=== PATIENT | male | born 1945 | race Caucasian/White ===

== ENCOUNTER 2017-12-16 05:14 | Inpatient (IN) | payer MEDICARE, SELFPAY ==
[2017-12-03 10:23] VITALS: BP 128/80; PULSE 90; RESP 16; TEMP 36.7; O2SAT 94; BMI 25.2
--- NOTE | 2017-12-03 10:45 | SDCEKG_ITS ---
Test Reason : Blood Pressure : / mmHG Vent. Rate : 088 BPM Atrial Rate : 088 BPM P-R Int : 168 ms QRS Dur : 134 ms QT Int : 368 ms P-R-T Axes : 040 055 019 degrees QTc Int : 445 ms Normal sinus rhythm Right bundle branch block Abnormal ECG Confirmed by MARIE DRIVER, NITZA ([id number]), commissioning editor OLGA SCHUSTER ([id number]) on 12/07/2017 2:10:59 PM Referred By: JADA Confirmed By:NITZA SALAZAR MD
[2017-12-03 11:04] LABS: Hematocrit 43.3 % (40-54); Hemoglobin 15.1 g/dl (13.0-16.5); Mean Corp Hgb Conc 34.9 g/gl (32-36); Mean Corpuscular Hgb 31.6 pg (27.0-32.0); Mean Corpuscular Volume 90.6 fL (80-94); Mean Platelet Vol. 10.1 fl (6.2-12.0); Platelet Count 222 K/mm3 (150-450); RBC Distribution Width CV 12.3 % (11.6-14.6); RBC Distribution Width SD 40.2 fl (35.1-43.9); Red Blood Count 4.78 M/mm3 (4.6-6.2); White Blood Count 10.9 K/mm3 (4.4-11.0)
[2017-12-03 11:06] LABS: Scan Indicated on CBC? Y/N NO
[2017-12-03 11:14] LABS: Prothrombin Time (Protime)PT. 12.6 SECONDS (11.7-14.9)
[2017-12-03 12:11] LABS: AST(SGOT) 20 U/L (15-37); Alanine Aminotransfer ALT/SGPT 33 U/L (16-61); Alkaline Phosphatase 74 U/L (45-117); Anion Gap 10 (5-15); BUN 34 mg/dL (7-18); BUN/Creat Ratio 29.8 RATIO (10-20); Bilirubin, Direct 0.13 mg/dL (0.00-0.30); Calcium,Total 9.5 mg/dL (8.5-10.1); Chloride 105 mmol/L (98-107); Creatinine, Serum 1.14 mg/dL (0.70-1.30); EST Glomerular Filtration Rate 67 mL/min (>60); Est Glom Filt Rate - Afr Amer 81 mL/min (>60); Globulin 3.7 g/dL (2.2-4.2); Glucose 156 mg/dL (74-106); Potassium 3.8 mmol/L (3.5-5.1); Protein, Total 7.7 g/dL (6.4-8.2); Sodium Level 141 mmol/L (136-145)
[2017-12-05 10:51] LABS: PTT-Lupus Anticoagulant 34.6 sec (0.0-51.9)
[2017-12-16] VITALS (12 sets, daily range): BP systolic 114–150; BP diastolic 48–78; PULSE 75–105; RESP 16–18; TEMP 36–37; O2SAT 92–100; BMI 25.2
[2017-12-16 05:56] LABS: Bedside Glucose 156 mg/dL (70-110)
[2017-12-16] MEDS: Cefazolin 2 GM in 0.9% Normal Saline 100 ML IV (07:22)
--- NOTE | 2017-12-16 07:30 | LYM_PTH ---
PATIENT: TOM JOE LOC: MS2 U#:[id number] AGE/SX: 72/M ROOM: [facility] [place]17 RE12/16/[address]: Dr. Randy Ragland MD : [id number] BED: 1 DIS: 12/18/2017 SPEC #: [id number] RECD: 12/16/17 14:53 STATUS: ASMITA REHerbert #: [id number] SHIRA: 12/16/17 07:[address]: Randy Ragland DEPT: SURGICAL PATHOLOGY RECD BY: Ervin Yoo ENTERED: 12/16/17 14:55 SP TYPE: LYM NODES OTHR DR: Dr. Joshua Guerrero MD Tissues: A - Lymph node of pelvis, NOS B - Lymph node of pelvis, NOS C - Prostate, NOS Procedures: Surgery Specimen Level V Surgery Specimen Level HEADER OPERATION: Laparoscopic robotic assisted radical prostatectomy PRE-OP DIAGNOSIS: Prostate cancer; elevated PSA TISSUE SUBMITTED: A ? Right pelvic lymph node, B ? Left pelvic lymph node, C - Prostate MICROSCOPIC DIAGNOSIS A. Right pelvic lymph node, biopsy: Three out of three lymph nodes, negative for metastatic carcinoma. B. Left pelvic lymph node, biopsy: A piece of adipose tissue, negative for carcinoma. No lymph node tissue is identified. C. Prostate, radical prostatectomy: Prostatic adenocarcinoma. See cancer summary below. PROSTATE CANCER (RADICAL) SUMMARY: Procedure ? radical prostatectomy Prostate size ? 6 cm transversely, 4.2 cm anterior-posteriorly and 4.2 cm craniocaudally. Prostate weight ? 74 gm Lymph node sampling ? pelvic lymph node dissection Histologic type ? adenocarcinoma (acinar) Histologic grade ([place] Pattern): Primary pattern ? grade 5 Secondary pattern ? grade 4 Tertiary pattern ? grade 3 Total [place] score - 9 Tumor Quantitation: Proportion (%) of prostate involved by tumor - ~30% Tumor size ? See comment. Extraprostatic extension - present Seminal vesicle invasion ? not identified Margins ? margins uninvolved by invasive carcinoma. Treatment effect on carcinoma ? no known presurgical therapy Lymph-Vascular invasion ? not identified Perineural invasion - present Regional lymph nodes: Number examined - 3 Number involved - 0 Distant metastasis ? not applicable Additional pathologic findings ? benign prostatic hyperplasia, glandular and stromal type. - Chronic inflammation and focal basal cell hyperplasia. Ancillary studies ? not performed PATHOLOGIC STAGE: pT3a pN0 Mx The above summary is in compliance with [employer] [place] Pathology (CAP) Cancer Protocols Checklist and [place] Joint Committee on Cancer (AJCC), Staging Manual, 8th Ed. SJ:stephane 12/21/17 COMMENT The tumor in the right lobe present in the apical, middle and basal portion and measures 1.5 x 1.0 x 3.0 cm (estimated size, measured microscopically) and present in slide # [id number] &16. A minute focus of tumor is noted in the left lobe and measures 0.1 cm in greatest dimension. Please make reference to previous specimen ([id number]) right prostate, apex, mid and base, core biopsies with diagnosis of adenocarcinoma and left prostate, base, core biopsy with focal high-grade prostatic intraepithelial neoplasm. Case has been reviewed in consultation with Dr. Armas who concurs with the above diagnosis. IDC:AM MICROSCOPIC DESCRIPTION Slides are reviewed. GROSS DESCRIPTION A - Received in fixative is one container labeled with the patient's name and designated right pelvic lymph node. The specimen consists of an irregular fragment of dillon-yellow fatty tissue measuring 3 x 2 x 1 cm. The specimen is bisected and totally submitted in two cassettes. / AM: 12/16/17 B - Received in fixative is one container labeled with the patient's name and designated left pelvic lymph node. The specimen consists of an irregular fragment of dillon-yellow fibrofatty tissue measuring 2 x 1.5 x 0.3 cm. The specimen is submitted in its entirety in one cassette. / AM: 12/16/17 C - Received in fixative is one container labeled with the patient's name and designated prostate. The specimen consists of prostate with attached seminal vesicles weighing 74 gm in total. The prostate measures 6 cm transversely, 4.2 cm anterior-posteriorly and 4.2 cm craniocaudally. On palpation, no mass lesions are grossly identified. The seminal vesicles and portions of vas deferens are also grossly unremarkable. The specimen is differentially inked as follows: anterior ? red, right half ? blue and left half ? green. The entire posterior portion of the gland is inked in black ink. Serial sections reveal a dillon- white nodular lesion measuring 1.5 x 1 x 1 cm present in the right posterior middle portion of the gland. Etcher Enameling sections are submitted in 19 cassettes as follows: 1 ? distal urethral (apex) shave, 2 ? bladder shave (proximal urethral margin), 3 ? seminal vesicles, 4 & 5 ? most basal section, 6 & 7 ? apex, 815 ? mid portion of prostate, 16-19 ? basal portion of prostate. / AM:stephane 12/17/17 TC:0 CPT: 16429 x2, 91452
--- NOTE | 2017-12-16 11:06 | PCM.OPRPT ---
Problem List (1) Prostate cancer Status: Acute
--- NOTE | 2017-12-16 11:27 | OP.PCM_ITS ---
Problem List (1) Prostate cancer Status: Acute
[2017-12-16] MEDS: Ketorolac 15 MG/ML Vial IV ×2 (11:40→17:24)
[2017-12-16 11:44] LABS: Hematocrit 39.4 % (40-54); Hemoglobin 13.4 g/dl (13.0-16.5); Mean Corpuscular Hgb 30.9 pg (27.0-32.0); Mean Corpuscular Volume 90.8 fL (80-94); Mean Platelet Vol. 9.9 fl (6.2-12.0); Platelet Count 203 K/mm3 (150-450); RBC Distribution Width CV 12.3 % (11.6-14.6); RBC Distribution Width SD 40.9 fl (35.1-43.9); Red Blood Count 4.34 M/mm3 (4.6-6.2); White Blood Count 22.6 K/mm3 (4.4-11.0)
[2017-12-16 11:45] LABS: Scan Indicated on CBC? Y/N NO
[2017-12-16 11:56] LABS: Anion Gap 11 (5-15); BUN 24 mg/dL (7-18); BUN/Creat Ratio 22.9 RATIO (10-20); Calcium,Total 8.4 mg/dL (8.5-10.1); Chloride 101 mmol/L (98-107); Creatinine, Serum 1.05 mg/dL (0.70-1.30); EST Glomerular Filtration Rate 74 mL/min (>60); Est Glom Filt Rate - Afr Amer 89 mL/min (>60); Estimated Creatinine Clearance 68.73 ml/min; Glucose 229 mg/dL (74-106); Potassium 4.3 mmol/L (3.5-5.1); Sodium Level 136 mmol/L (136-145)
[2017-12-16 12:06] LABS: Bedside Glucose 196 mg/dL (70-110)
--- NOTE | 2017-12-16 12:06 | PCM.OPRPT ---
Problem List (1) Prostate cancer Status: Acute Report of Operation Date of Procedure: 12/16/17 Pre-Operative Diagnosis: Prostate cancer, Roly 8 involving the right side of the prostate. Post-Operative Diagnosis: Same Surgery/Procedure Performed:: Laparoscopic robotic assisted radical prostatectomy, bilateral lymph node dissection of the obturator space. EMG monitoring of the sphincter and pelvic floor and levator ani. Description of Surgical Findings:: 72-year-old male taken back to the operating room after smooth induction of general anesthesia he was placed supine on the table the abdomen was shaved and prepped and draped in usual sterile fashion made an incision above the umbilicus advanced the Veress needle into the peritoneal cavity inflated the peritoneal cavity with CO2 gas then placed a 1012 trocar into the abdomen then placed my right robotic trocar and my to left robotic trochars sound assistant variceal port and sound assistant suction port. We then docked the robot and proceeded first I mobilized the sigmoid colon just a little bit incising the white line of Toldt. I then went behind the bladder identified the right vas deferens dissected down into the pelvis dissected out the right vas deferens and the right seminal vesicle and then identified the left vas deferens and the left seminal vesicle these were identified I transected both the vas deferens there are I then went below below the prostate and created a space between the rectum and the prostate entering the tenotomies fascia clearing of the space on the both the right and left side I then pulled out of the pelvis we then dropped the bladder created space of Retzius the bladder was placed on traction with the fourth arm I went to the pelvic lymph nodes in the stripping shovel operator space in the right side identified by borders the iliac vein lateral pelvic wall and pubic bone and the obturator nerve cleared out the space of lymph node tissue once this was done then this is put in a specimen and and handed off as a permanent specimen I went to the left side the same dissection identified the left iliac vein lateral pelvic wall and obturator nerve dissected out the left side completely used electrocautery and clips. Then after completion of the pelvic lymph node dissection these were grossly normal I then incised the lateral pelvic fascia overlying the prostate on the right side and the left side T the prostate off the levator muscles went up to the apex of the prostate dissected and transected through the puboprostatic ligaments and then identified the dorsal vein complex and then a stitch was placed on around the dorsal vein complex in a [id number] fashion and then pulled back to the bladder neck and dissected between the prostate and the bladder neck all the way down to the catheter pulled the catheter up with traction and dissected between the bladder and the prostate posteriorly, then at this point the EMG electrodes are placed into the pelvis and we stimulated the nerves running along the pelvic sidewalls and identified these. On the right side we stimulated got a good action potential. On the left side was stimulated got a good action potential dissection was carried out and then after dissection we checked again and both of them at good action potentials we then checked the the urethra and we able get the urethra also to coapt and spasm while we stimulated the urethra pudendal nerves of the urethra this was intact at the end of the procedure. Until I reached the seminal vesicles and vas deferens are already dissected out first start of the right side I used clips to control the pedicle on the right side and then dissected on the right side in a more wide fashion all the way to the apex on the right no violation of the prostate was done. I then went to the left side and clipped the pedicles in the left side I did a nerve sparing procedure in the left side releasing the neurovascular bundle off the posterior aspect of the prostate and the left side all the way up to the apex and then transected to the apex through the dorsal vein complex I placed a second stitch in the dorsal vein complex to obtain good control of any bleeding I then circumferentially dissected all the way around the urethra I then transected through the urethra and the prostate was then free put in Endo Catch bag and then we completed the anastomosis using double-arm 3-0 Vicryl barbed suture over a catheter in a continuous fashion. After the anastomosis completed we checked for any leakage and there is no leakage placed the drain in the pelvis next to the anastomosis we closed the 1012 Wang Gómez variceal port extracted the prostate to the umbilicus closed the extraction site patient's incisions were closed with subcuticular stitches catheter was flushed is draining nice and well patient's anesthesia was reversed to take back to PACU in good condition. Type of Anesthesia:: General Drains: ashraf Estimated Blood Loss (mL): 100cc - Admit VTE Documentation VTE Present on Admission: No VTE Mechan Device Prophylaxis: SCD's VTE Pharm Prophylaxis ordered?: No Reason prophylaxis not ordered:: Treatment Not Indicated
--- NOTE | 2017-12-16 12:13 | OP.PCM_ITS ---
Problem List (1) Prostate cancer Status: Acute Report of Operation Date of Procedure: 12/16/17 Pre-Operative Diagnosis: Prostate cancer, Roly 8 involving the right side of the prostate. Post-Operative Diagnosis: Same Surgery/Procedure Performed:: Laparoscopic robotic assisted radical prostatectomy, bilateral lymph node dissection of the obturator space. EMG monitoring of the sphincter and pelvic floor and levator ani. Description of Surgical Findings:: 72-year-old male taken back to the operating room after smooth induction of general anesthesia he was placed supine on the table the abdomen was shaved and prepped and draped in usual sterile fashion made an incision above the umbilicus advanced the Veress needle into the peritoneal cavity inflated the peritoneal cavity with CO2 gas then placed a 1012 trocar into the abdomen then placed my right robotic trocar and my to left robotic trochars pharmacy affairs assistant variceal port and pharmacy affairs assistant suction port. We then docked the robot and proceeded first I mobilized the sigmoid colon just a little bit incising the white line of Toldt. I then went behind the bladder identified the right vas deferens dissected down into the pelvis dissected out the right vas deferens and the right seminal vesicle and then identified the left vas deferens and the left seminal vesicle these were identified I transected both the vas deferens there are I then went below below the prostate and created a space between the rectum and the prostate entering the tenotomies fascia clearing of the space on the both the right and left side I then pulled out of the pelvis we then dropped the bladder created space of Retzius the bladder was placed on traction with the fourth arm I went to the pelvic lymph nodes in the electronic page makeup system operator space in the right side identified by borders the iliac vein lateral pelvic wall and pubic bone and the obturator nerve cleared out the space of lymph node tissue once this was done then this is put in a specimen and and handed off as a permanent specimen I went to the left side the same dissection identified the left iliac vein lateral pelvic wall and obturator nerve dissected out the left side completely used electrocautery and clips. Then after completion of the pelvic lymph node dissection these were grossly normal I then incised the lateral pelvic fascia overlying the prostate on the right side and the left side T the prostate off the levator muscles went up to the apex of the prostate dissected and transected through the puboprostatic ligaments and then identified the dorsal vein complex and then a stitch was placed on around the dorsal vein complex in a [id number] fashion and then pulled back to the bladder neck and dissected between the prostate and the bladder neck all the way down to the catheter pulled the catheter up with traction and dissected between the bladder and the prostate posteriorly, then at this point the EMG electrodes are placed into the pelvis and we stimulated the nerves running along the pelvic sidewalls and identified these. On the right side we stimulated got a good action potential. On the left side was stimulated got a good action potential dissection was carried out and then after dissection we checked again and both of them at good action potentials we then checked the the urethra and we able get the urethra also to coapt and spasm while we stimulated the urethra pudendal nerves of the urethra this was intact at the end of the procedure. Until I reached the seminal vesicles and vas deferens are already dissected out first start of the right side I used clips to control the pedicle on the right side and then dissected on the right side in a more wide fashion all the way to the apex on the right no violation of the prostate was done. I then went to the left side and clipped the pedicles in the left side I did a nerve sparing procedure in the left side releasing the neurovascular bundle off the posterior aspect of the prostate and the left side all the way up to the apex and then transected to the apex through the dorsal vein complex I placed a second stitch in the dorsal vein complex to obtain good control of any bleeding I then circumferentially dissected all the way around the urethra I then transected through the urethra and the prostate was then free put in Endo Catch bag and then we completed the anastomosis using double- arm 3-0 Vicryl barbed suture over a catheter in a continuous fashion. After the anastomosis completed we checked for any leakage and there is no leakage placed the drain in the pelvis next to the anastomosis we closed the 1012 Wang Gómez variceal port extracted the prostate to the umbilicus closed the extraction site patient's incisions were closed with subcuticular stitches catheter was flushed is draining nice and well patient's anesthesia was reversed to take back to PACU in good condition. Type of Anesthesia:: General Drains: ashraf Estimated Blood Loss (mL): 100cc - Admit VTE Documentation VTE Present on Admission: No VTE Mechan Device Prophylaxis: SCD's VTE Pharm Prophylaxis ordered?: No Reason prophylaxis not ordered:: Treatment Not Indicated
[2017-12-16] MEDS: Lactated Ringers 1,000 ML 125 ML IV ×2 (13:22→21:21)
[2017-12-16] MEDS: Acetaminophen 500 MG Tablet PO ×3 (15:02→21:22)
[2017-12-16 18:06] LABS: Bedside Glucose 238 mg/dL (70-110)
[2017-12-16] MEDS: Docusate Sodium 100 MG Capsule 200 MG PO (21:23)
[2017-12-16] MEDS: Ciprofloxacin 500 MG Tablet PO (21:24)
[2017-12-16 21:35] LABS: Bedside Glucose 205 mg/dL (70-110)
[2017-12-16] MEDS: oxyCODONE 5 MG Tablet PO (22:32)
[2017-12-17] MEDS: Ketorolac 15 MG/ML Vial IV ×4 (00:07→17:55)
[2017-12-17] MEDS: Acetaminophen 500 MG Tablet PO ×6 (02:10→21:25)
[2017-12-17 02:20] VITALS: BP 108/69; PULSE 86; RESP 16; TEMP 36.9; O2SAT 93
[2017-12-17] MEDS: Lactated Ringers 1,000 ML 125 ML IV ×3 (06:35→21:25)
[2017-12-17 06:36] LABS: Bedside Glucose 180 mg/dL (70-110)
[2017-12-17 06:45] LABS: Hematocrit 33.4 % (40-54); Hemoglobin 11.5 g/dl (13.0-16.5); Mean Corp Hgb Conc 34.4 g/gl (32-36); Mean Corpuscular Hgb 31.3 pg (27.0-32.0); Mean Corpuscular Volume 90.8 fL (80-94); Mean Platelet Vol. 9.8 fl (6.2-12.0); Platelet Count 149 K/mm3 (150-450); RBC Distribution Width CV 12.3 % (11.6-14.6); RBC Distribution Width SD 40.5 fl (35.1-43.9); Red Blood Count 3.68 M/mm3 (4.6-6.2); White Blood Count 11.6 K/mm3 (4.4-11.0)
[2017-12-17 06:56] LABS: Anion Gap 7 (5-15); BUN 20 mg/dL (7-18); Chloride 104 mmol/L (98-107); Creatinine, Serum 1.11 mg/dL (0.70-1.30); EST Glomerular Filtration Rate 69 mL/min (>60); Est Glom Filt Rate - Afr Amer 84 mL/min (>60); Estimated Creatinine Clearance 65.01 ml/min; Glucose 151 mg/dL (74-106); Potassium 3.9 mmol/L (3.5-5.1); Sodium Level 140 mmol/L (136-145)
[2017-12-17 07:01] LABS: Scan Indicated on CBC? Y/N NO
[2017-12-17 08:09] VITALS: O2SAT 93
[2017-12-17 08:20] VITALS: BP 103/60; PULSE 87; RESP 18; TEMP 36.9; O2SAT 94
[2017-12-17] MEDS: Atorvastatin Calcium 80 MG Tablet PO (08:40)
[2017-12-17] MEDS: Multivitamins,Therapeutic Tablet 1 TABLET PO (08:40)
[2017-12-17] MEDS: Ciprofloxacin 500 MG Tablet PO ×2 (08:40→21:25)
[2017-12-17 08:41] VITALS: PULSE 80
[2017-12-17] MEDS: Docusate Sodium 100 MG Capsule 200 MG PO ×2 (08:41→21:25)
[2017-12-17] MEDS: Pantoprazole Sodium 20 MG Tablet PO (08:41)
[2017-12-17] MEDS: hydroCHLOROthiazide 25 MG Tablet PO (08:41)
[2017-12-17] MEDS: Metoprolol Tartrate 50 MG Tablet PO (08:41)
[2017-12-17] MEDS: Lisinopril 40 MG Tablet PO (08:43)
--- NOTE | 2017-12-17 11:35 | CASEMGMT ---
DC PLAN: home on discharge with family support. Alberto SANCHEZN RN ACM
--- NOTE | 2017-12-17 16:20 | NURSING ---
Care assumed at this time.
--- NOTE | 2017-12-17 16:20 | NURSING ---
Care assumed at this time.
--- NOTE | 2017-12-17 17:24 | PCM.PROGNOTE ---
Patient Problems: Active and Suspected Problems Prostate cancer (Acute) Subjective: doing well. - Physical Exam General: Alert, Oriented x3, Cooperative HEENT: Atraumatic, PERRLA, EOMI, Normocephalic Neck: Supple, No JVD, Negative Carotid Bruits Lungs: Clear to auscultation, Normal air movement Cardiovascular: Regular rate, No murmurs Abdomen: Bowel Sounds Present, Soft, Non Tender Extremities: No edema, Capillary Refill Less than 3 Seconds Skin: No rashes, No breakdown Musculoskeletal: No Tenderness to Palpation of Joints or Extremities Neurological: Cranial nerves II-XII grossly intact Psych/Mental Status: Normal Affect, Appropriate Vital Signs Temp Pulse Resp BP Pulse Ox 98.4 F 80 18 103/60 94 12/17/17 08:20 12/17/17 08:41 12/17/17 08:20 12/17/17 08:20 12/17/17 08:20 Oxygen Delivery Method Room Air Weight: 82 kg Body Mass Index (BMI) 25.2 Finger Stick Blood Glucose 196 Intake and Output for Last 24 Hours 12/15/17 12/16/17 12/17/17 23:59 23:59 23:59 Intake Total 3215 / 3215 2596 / 2596 Output Total 495 / 495 1695 / 1695 Balance 2720 / 2720 901 / 901 Laboratory Tests Past 24 Hrs 12/17/17 12/17/17 06:15 06:15 WBC 11.6 H RBC 3.68 L Hgb 11.5 L Hct 33.4 L MCV 90.8 MCH 31.3 MCHC 34.4 RDW 12.3 RDW Differential 40.5 Plt Count 149 L MPV 9.8 Sodium 140 Potassium 3.9 Chloride 104 Carbon Dioxide 29.0 Anion Gap 7 BUN 20 H Creatinine 1.11 Estim Creat Clear Calc 65.01 Est GFR (MDRD) Af Amer 84 Est GFR (MDRD) Non-Af 69 BUN/Creatinine Ratio 18.0 Glucose 151 H Calcium 8.0 L POC Glucose 12/17/17 12/16/17 12/16/17 06:28 21:21 17:38 POC Glucose 180 H 205 H 238 H Assessment/Plan Active and Suspected Problems Prostate cancer (Acute) ambulate reg diet.
[2017-12-17 17:31] LABS: Bedside Glucose 117 mg/dL (70-110)
[2017-12-17] MEDS: 0.9% NaCl Peripheral Flush Adult/Peds IV (17:55)
[2017-12-17 18:00] VITALS: BP 125/75; PULSE 86; RESP 16; TEMP 36.9; O2SAT 97
[2017-12-17 20:36] VITALS: BP 133/82; PULSE 79; RESP 16; TEMP 37.1; O2SAT 96
[2017-12-17 21:36] LABS: Bedside Glucose 148 mg/dL (70-110)
[2017-12-18] MEDS: Acetaminophen 500 MG Tablet PO ×3 (02:27→08:25)
[2017-12-18 02:30] VITALS: BP 135/83; PULSE 81; RESP 16; TEMP 36.8; O2SAT 96
[2017-12-18] MEDS: Lactated Ringers 1,000 ML 125 ML IV (05:36)
[2017-12-18 06:41] LABS: Bedside Glucose 148 mg/dL (70-110)
[2017-12-18 08:10] VITALS: BP 146/86; PULSE 81; RESP 18; TEMP 37.3; O2SAT 95
--- NOTE | 2017-12-18 08:10 | PCM.DC.URO ---
Discharge Diet: Light diet - advance as tolerated Discharge Activity: May Not Drive May shower in (days): 1 Call your doctor if your incision/area has: Continuous Slow Oozing, Sudden Increased Bleeding, Increased Pain/ Swelling, Increased Redness, Foul Smelling Discharge, Swelling at the incision site Call your doctor if you observe: Fever of 101 or Higher, Inability to urinate, Inability to have a bowel movement, Uncontrolled pain Suture Line Care: Avoid Pulling/Pushing, Avoid Pinching/Bending Instructions: Discharge Instructions for Radical Prostatectomy Allergies/Adverse Reactions: Allergies No Known Allergies Allergy (Verified 12/03/17 10:03) Medications to take at Discharge Atorvastatin Calcium 80 mg PO DAILY 12/03/17 Cholecalciferol (Vitamin D3) [Vitamin D3] 5,000 unit PO QHS 12/03/17 GlipiZIDE [Glucotrol] 5 mg PO BIDAC 12/03/17 Hydrochlorothiazide [Hctz] 25 mg PO DAILY 12/03/17 Lisinopril [Zestril] 40 mg PO DAILY 12/03/17 Metformin HCl 850 mg PO BID 12/03/17 Metoprolol Tartrate [Lopressor (beta izzy)] 50 mg PO DAILY 12/03/17 Multivitamin [Multiple Vitamins] 1 each PO DAILY 12/03/17 Omeprazole [Prilosec] 20 mg PO DAILY 12/03/17 Ciprofloxacin [Cipro] 500 mg PO BID #20 tab 12/18/17 Docusate Sodium [Colace] 100 mg PO BID #20 cap 12/18/17 Hydrocodone/Acetaminophen [[place] 5-325 Tablet] 1 ea PO Q4H PRN PRN 5 Days #10 tab 12/18/17 The following prescriptions were given: Hydrocodone/Acetaminophen [[place] 5-325 Tablet] 1 ea PO Q4H PRN PRN 5 Days #10 tab PRN Reason: Pain Ciprofloxacin [Cipro] 500 mg PO BID #20 tab Docusate Sodium [Colace] 100 mg PO BID #20 cap Primary Care Physician: Joshua Guerrero MD [Primary Care Provider] - Please Follow Up With: Randy Ragland MD When: Next thrusday at 10 am to remove ashraf, December 24.
--- NOTE | 2017-12-18 08:13 | PCM.DC.SUM ---
Discharge Date and Diagnosis - Problem List Patient Problems: Active and Suspected Problems Prostate cancer (Acute) Date of Admission: 12/16/17 Date of Discharge: 12/18/17 - Primary Discharge Diagnosis Active and Suspected Problems Prostate cancer (Acute) Hospital Course and Treatment Operations: - - Radical Prostatectomy Procedures: None Summary of Care Provided: The patient is a 72 year old male with prostate cancer, s/p radical prostatectomy doing well, home with ashraf to leg bag. Discharge Diet: Light diet - advance as tolerated Discharge Activity: May Not Drive May shower in (days): 1 Call your doctor if your incision/area has: Continuous Slow Oozing, Sudden Increased Bleeding, Increased Pain/ Swelling, Increased Redness, Foul Smelling Discharge, Swelling at the incision site Call your doctor if you observe: Fever of 101 or Higher, Inability to urinate, Inability to have a bowel movement, Uncontrolled pain Suture Line Care: Avoid Pulling/Pushing, Avoid Pinching/Bending Home Medications: Medications to take at Discharge Atorvastatin Calcium 80 mg PO DAILY 12/03/17 Cholecalciferol (Vitamin D3) [Vitamin D3] 5,000 unit PO QHS 12/03/17 GlipiZIDE [Glucotrol] 5 mg PO BIDAC 12/03/17 Hydrochlorothiazide [Hctz] 25 mg PO DAILY 12/03/17 Lisinopril [Zestril] 40 mg PO DAILY 12/03/17 Metformin HCl 850 mg PO BID 12/03/17 Metoprolol Tartrate [Lopressor (beta izzy)] 50 mg PO DAILY 12/03/17 Multivitamin [Multiple Vitamins] 1 each PO DAILY 12/03/17 Omeprazole [Prilosec] 20 mg PO DAILY 12/03/17 Ciprofloxacin [Cipro] 500 mg PO BID #20 tab 12/18/17 Docusate Sodium [Colace] 100 mg PO BID #20 cap 12/18/17 Hydrocodone/Acetaminophen [[place] 5-325 Tablet] 1 ea PO Q4H PRN PRN 5 Days #10 tab 12/18/17 Following Prescrptions Were Given to Patient: Hydrocodone/Acetaminophen [[place] 5-325 Tablet] 1 ea PO Q4H PRN PRN 5 Days #10 tab PRN Reason: Pain Ciprofloxacin [Cipro] 500 mg PO BID #20 tab Docusate Sodium [Colace] 100 mg PO BID #20 cap Primary Care Physician: Joshua Guerrero MD [Primary Care Provider] - Please Follow Up With: Randy Ragland MD When: Next thrusday at 10 am to remove ashraf, December 24. Patient Instructions: Discharge Instructions for Radical Prostatectomy Meaningful Use Info Meaningful Use Diagnoses (Choose all that apply): None applicable
[2017-12-18 08:24] VITALS: BP 146/86; PULSE 81
[2017-12-18] MEDS: Multivitamins,Therapeutic Tablet 1 TABLET PO (08:24)
[2017-12-18] MEDS: Atorvastatin Calcium 80 MG Tablet PO (08:24)
[2017-12-18] MEDS: Ciprofloxacin 500 MG Tablet PO (08:24)
[2017-12-18] MEDS: Metoprolol Tartrate 50 MG Tablet PO (08:24)
[2017-12-18] MEDS: hydroCHLOROthiazide 25 MG Tablet PO (08:24)
[2017-12-18] MEDS: Docusate Sodium 100 MG Capsule 200 MG PO (08:24)
[2017-12-18] MEDS: Lisinopril 40 MG Tablet PO (08:25)
[2017-12-18] MEDS: Pantoprazole Sodium 20 MG Tablet PO (08:25)
[2017-12-18 09:20] VITALS: BP 146/86; PULSE 81; RESP 18; TEMP 37.3; O2SAT 95
== END 2017-12-18 09:20 | disposition home or self-care (01) | DRG 708 ==
LOC: ACINP 05:14 → MS2 09:04
PROVIDERS: Anesthesiology; Admitting Provider Urology; Family Provider Family Medicine; PCP Family Medicine; Visit Provider Urology
PROC: 0VT04ZZ Resection of Prostate, Percutaneous Endoscopic Approach (ICD-10-PCS; CPT 55866; principal; 2017-12-16 07:10)
DX: C61 Malignant neoplasm of prostate (principal); E11.9 Type 2 diabetes mellitus without complications; I10 Essential (primary) hypertension; Z79.84 Long term (current) use of oral hypoglycemic drugs; Z87.891 Personal history of nicotine dependence; N40.1 Benign prostatic hyperplasia with lower urinary tract symptoms; R35.0 Frequency of micturition; R35.1 Nocturia
CPT/HCPCS: 36415; 80048; 80076; 82962; 83036; 85027; 85610; 85732; 86850; 86900; 88307; 88309; 93005; 94762; J7120; A4216

== ENCOUNTER → 2018-02-22 09:01 | Outpatient (CLI) | payer MEDICARE, SELFPAY ==
[2018-02-22 09:56] LABS: PSA,Total- Diagnostic 0.12 ng/mL (0.0-4.0)
== END ==
PROVIDERS: Family Provider Family Medicine; PCP Family Medicine; Visit Provider Urology
DX: C61 Malignant neoplasm of prostate (principal)
CPT/HCPCS: 36415; 84153

== ENCOUNTER → 2018-05-17 10:54 | Outpatient (CLI) | payer MEDICARE, SELFPAY ==
[2018-05-17 12:34] LABS: PSA,Total- Diagnostic < 0.01 ng/mL (0.0-4.0)
== END ==
PROVIDERS: Visit Provider Urology
DX: R97.20 Elevated prostate specific antigen [PSA] (principal)
CPT/HCPCS: 36415; 84153

== ENCOUNTER → 2018-06-25 11:11 | Outpatient (CLI) | payer MEDICARE, SELFPAY ==
[2018-06-24 15:11] LABS: Absolute Lymphocyte Count 2.01 X10^3/ul (0.83-4.51); Absolute Neutrophil Count 5.9 X10^3/uL (2.0-7.7); Basophil# 0.04 X10^3/uL; Basophil% 0.4 % (0-1); Eosinophil# 0.27 X10^3/uL; Eosinophils% 2.9 % (0-5); Hematocrit 39.8 % (40-54); Hemoglobin 12.9 g/dl (13.0-16.5); Lymphocyte # 2.01 X10^3/ul (4.0); Lymphocyte % 21.4 % (19-41); Mean Corp Hgb Conc 32.4 g/gl (32-36); Mean Corpuscular Hgb 30.5 pg (27.0-32.0); Mean Corpuscular Volume 94.1 fL (80-94); Mean Platelet Vol. 10.8 fl (6.2-12.0); Monocyte# 1.19 X10^3/uL; Monocyte% 12.6 % (0-10); Neutrophil % 62.7 % (47-70); Platelet Count 223 K/mm3 (150-450); RBC Distribution Width CV 13.1 % (11.6-14.6); RBC Distribution Width SD 44.7 fl (35.1-43.9); Red Blood Count 4.23 M/mm3 (4.6-6.2); White Blood Count 9.4 K/mm3 (4.4-11.0)
[2018-06-24 15:21] LABS: POSITIVE COUNT NO; POSITIVE DIFFERENTIAL NO; POSITIVE MORPHOLOGY NO
[2018-06-24 15:41] LABS: Creatinine, Serum 0.99 mg/dL (0.70-1.30); EST Glomerular Filtration Rate 79 mL/min (>60); Est Glom Filt Rate - Afr Amer 95 mL/min (>60); PSA,Total- Diagnostic < 0.01 ng/mL (0.0-4.0)
[2018-06-25 11:55] LABS: CREATININE FINGERSTICK 0.8 mg/dL (0.70-1.30); EGFR FINGERSTICK > 60.0000 mL/min (>60)
== END ==
PROVIDERS: Visit Provider Radiology Radiation Oncology
DX: Z01.818 Encounter for other preprocedural examination (principal); C61 Malignant neoplasm of prostate
CPT/HCPCS: 36415; 51600; 72193; 82565; 84153; 85025; Q9965; Q9967

== ENCOUNTER → 2018-07-20 09:38 | Outpatient (CLI) | payer MEDICARE, SELFPAY ==
[2018-07-20 11:02] LABS: Absolute Lymphocyte Count 0.86 X10^3/ul (0.83-4.51); Absolute Neutrophil Count 4.6 X10^3/uL (2.0-7.7); Basophil# 0.03 X10^3/uL; Basophil% 0.4 % (0-1); Eosinophil# 0.34 X10^3/uL; Eosinophils% 4.9 % (0-5); Hemoglobin 13.2 g/dl (13.0-16.5); Lymphocyte # 0.86 X10^3/ul (4.0); Lymphocyte % 12.4 % (19-41); Mean Corp Hgb Conc 33.8 g/gl (32-36); Mean Corpuscular Hgb 30.4 pg (27.0-32.0); Mean Corpuscular Volume 89.9 fL (80-94); Mean Platelet Vol. 10.5 fl (6.2-12.0); Monocyte# 1.08 X10^3/uL; Monocyte% 15.6 % (0-10); Neutrophil % 66.6 % (47-70); Platelet Count 167 K/mm3 (150-450); RBC Distribution Width CV 12.8 % (11.6-14.6); RBC Distribution Width SD 41.7 fl (35.1-43.9); Red Blood Count 4.34 M/mm3 (4.6-6.2); White Blood Count 6.9 K/mm3 (4.4-11.0)
[2018-07-20 11:11] LABS: POSITIVE COUNT NO; POSITIVE DIFFERENTIAL NO; POSITIVE MORPHOLOGY NO
== END ==
PROVIDERS: Referring Provider Radiology Radiation Oncology; Visit Provider Radiology Radiation Oncology
DX: C61 Malignant neoplasm of prostate (principal)
CPT/HCPCS: 36415; 85025

== ENCOUNTER → 2018-08-10 09:54 | Outpatient (CLI) | payer MEDICARE, SELFPAY ==
[2018-08-10 10:26] LABS: Absolute Lymphocyte Count 0.98 X10^3/ul (0.83-4.51); Absolute Neutrophil Count 4.2 X10^3/uL (2.0-7.7); Basophil# 0.04 X10^3/uL; Basophil% 0.7 % (0-1); Eosinophil# 0.24 X10^3/uL; Hematocrit 39.3 % (40-54); Hemoglobin 13.1 g/dl (13.0-16.5); Lymphocyte # 0.98 X10^3/ul (4.0); Lymphocyte % 16.2 % (19-41); Mean Corp Hgb Conc 33.3 g/gl (32-36); Mean Corpuscular Hgb 29.8 pg (27.0-32.0); Mean Corpuscular Volume 89.5 fL (80-94); Mean Platelet Vol. 9.5 fl (6.2-12.0); Monocyte# 0.62 X10^3/uL; Monocyte% 10.2 % (0-10); Neutrophil # 4.16 X10^3/uL (2.7-7.7); Neutrophil % 68.7 % (47-70); Platelet Count 202 K/mm3 (150-450); RBC Distribution Width CV 13.3 % (11.6-14.6); Red Blood Count 4.39 M/mm3 (4.6-6.2); White Blood Count 6.1 K/mm3 (4.4-11.0)
[2018-08-10 10:31] LABS: POSITIVE COUNT NO; POSITIVE DIFFERENTIAL NO; POSITIVE MORPHOLOGY NO
== END ==
PROVIDERS: Referring Provider Radiology Radiation Oncology; Visit Provider Radiology Radiation Oncology
DX: C61 Malignant neoplasm of prostate (principal)
CPT/HCPCS: 36415; 85025

== ENCOUNTER → 2018-11-25 10:52 | Outpatient (CLI) | payer MEDICARE, SELFPAY ==
[2017-12-16 12:46] VITALS: BMI 25.2
[2018-11-25 12:26] LABS: PSA,Total- Diagnostic < 0.01 ng/mL (0.0-4.0)
== END ==
PROVIDERS: Referring Provider Urology; Visit Provider Urology
DX: C61 Malignant neoplasm of prostate (principal)
CPT/HCPCS: 36415; 84153

== ENCOUNTER → 2019-06-13 09:24 | Outpatient (CLI) | payer MEDICARE, SELFPAY ==
[2017-12-16 12:46] VITALS: BMI 25.2
[2019-06-13 10:48] LABS: PSA,Total- Diagnostic < 0.01 ng/mL (0.0-4.0)
== END ==
PROVIDERS: Referring Provider Urology; Visit Provider Urology
DX: C61 Malignant neoplasm of prostate (principal)
CPT/HCPCS: 36415; 84153

== ENCOUNTER → 2019-09-29 10:07 | Outpatient (CLI) | payer MEDICARE, SELFPAY ==
[2019-09-29 11:08] LABS: PSA,Total- Diagnostic < 0.01 ng/mL (0.0-4.0)
== END ==
PROVIDERS: Referring Provider Urology; Visit Provider Urology
DX: C61 Malignant neoplasm of prostate (principal)
CPT/HCPCS: 36415; 84153

== ENCOUNTER → 2020-02-07 09:23 | Outpatient (CLI) | payer MEDICARE, SELFPAY ==
[2017-12-16 12:46] VITALS: BMI 25.2
[2020-02-07 10:35] LABS: PSA,Total- Diagnostic < 0.01 ng/mL (0.0-4.0)
== END ==
PROVIDERS: Referring Provider Urology; Visit Provider Urology
DX: C61 Malignant neoplasm of prostate (principal)
CPT/HCPCS: 36415; 84153

== ENCOUNTER → 2020-07-17 14:30 | Outpatient (CLI) | payer MEDICARE, SELFPAY ==
[2020-07-17 16:12] LABS: PSA,Total- Diagnostic < 0.01 ng/mL (0.0-4.0)
== END ==
PROVIDERS: Referring Provider Urology; Visit Provider Urology
DX: C61 Malignant neoplasm of prostate (principal)
CPT/HCPCS: 36415; 84153

== ENCOUNTER → 2021-02-25 10:11 | Outpatient (CLI) | payer MEDICARE, SELFPAY ==
[2017-12-16 12:46] VITALS: BMI 25.2
[2021-02-25 11:25] LABS: PSA,Total- Diagnostic < 0.01 ng/mL (0.0-4.0)
== END ==
PROVIDERS: Referring Provider Urology; Visit Provider Urology
DX: C61 Malignant neoplasm of prostate (principal)
CPT/HCPCS: 36415; 84153

== ENCOUNTER → 2021-09-23 11:26 | Outpatient (CLI) | payer MEDICARE, SELFPAY ==
[2021-09-23 13:42] LABS: PSA,Total- Diagnostic < 0.01 ng/mL (0.0-4.0)
== END ==
PROVIDERS: Referring Provider Urology; Visit Provider Urology
DX: C61 Malignant neoplasm of prostate (principal)
CPT/HCPCS: 36415; 84153

== ENCOUNTER → 2022-03-26 | Outpatient (CLI) | payer MEDICARE, SELFPAY ==
[2022-03-26 09:54] LABS: PSA,Total- Diagnostic < 0.01 ng/mL (0.0-4.0)
== END | disposition home or self-care (01) ==
PROVIDERS: Referring Provider Urology; Visit Provider Urology
DX: C61 Malignant neoplasm of prostate (principal)
CPT/HCPCS: 36415; 84153

== ENCOUNTER → 2022-10-13 | Outpatient (CLI) | payer MEDICARE, SELFPAY ==
[2022-10-13 15:32] LABS: PSA,Total- Diagnostic < 0.01 ng/mL (0.0-4.0)
== END | disposition home or self-care (01) ==
LOC: LAB 13:29
PROVIDERS: Referring Provider Urology; Visit Provider Urology
DX: C61 Malignant neoplasm of prostate (principal)
CPT/HCPCS: 36415; 84153

== ENCOUNTER → 2023-04-24 | Outpatient (CLI) | payer MEDICARE, SELFPAY ==
[2023-04-24 13:14] LABS: PSA,Total- Diagnostic < 0.01 ng/mL (0.0-4.0)
== END | disposition home or self-care (01) ==
LOC: LAB 11:15
PROVIDERS: Referring Provider Urology; Visit Provider Urology
DX: C61 Malignant neoplasm of prostate (principal)
CPT/HCPCS: 36415; 84153; G0103

== ENCOUNTER → 2023-09-29 | Outpatient (CLI) | payer MEDICARE, SELFPAY ==
[2023-09-29 16:07] LABS: PSA,Total- Diagnostic < 0.01 ng/mL (0.0-4.0)
== END | disposition home or self-care (01) ==
LOC: LAB 14:35
PROVIDERS: Referring Provider Urology; Visit Provider Urology
DX: C61 Malignant neoplasm of prostate (principal)
CPT/HCPCS: 36415; 84153

== ENCOUNTER → 2024-03-30 | Outpatient (CLI) | payer MEDICARE, SELFPAY ==
[2024-03-30 11:07] LABS: PSA,Total- Diagnostic < 0.01 ng/mL (0.0-4.0)
== END | disposition home or self-care (01) ==
LOC: PAVLAB 10:14
PROVIDERS: Referring Provider Nurse Practitioner; Visit Provider Nurse Practitioner
DX: C61 Malignant neoplasm of prostate (principal)
CPT/HCPCS: 36415; 84153

== ENCOUNTER → 2024-07-12 | Outpatient (CLI) | payer MEDICARE, SELFPAY | END | disposition home or self-care (01) | LOC: LABSPEC 16:14 | PROVIDERS: Referring Provider Urology; Visit Provider Urology | DX: N30.01 Acute cystitis with hematuria (principal) | CPT/HCPCS: 87086; 87088; 87186 ==

== ENCOUNTER → 2024-10-06 | Outpatient (CLI) | payer MEDICARE, SELFPAY ==
[2024-10-06 11:18] LABS: PSA,Total- Diagnostic < 0.01 ng/mL (0.0-4.0)
== END | disposition home or self-care (01) ==
LOC: PAVLAB 10:34
PROVIDERS: Referring Provider Urology; Visit Provider Urology
DX: C61 Malignant neoplasm of prostate (principal)
CPT/HCPCS: 36415; 84153

== ENCOUNTER → 2025-03-31 | Outpatient (CLI) | payer MEDICARE, SELFPAY ==
[2025-03-31 15:57] LABS: PSA,Total- Diagnostic < 0.02 ng/mL (0.00-4.00)
== END | disposition home or self-care (01) ==
LOC: LAB 14:07
PROVIDERS: Referring Provider Urology; Visit Provider Urology
DX: C61 Malignant neoplasm of prostate (principal)
CPT/HCPCS: 36415; 84153

== ENCOUNTER 2025-06-29 01:49 | Emergency (ER) | payer MEDICARE, SELFPAY ==
[2025-06-29 01:50] VITALS: BP 172/82; PULSE 78; RESP 18; TEMP 36.4; O2SAT 98; BMI 21.5
--- NOTE | 2025-06-29 01:59 | EDS_ITS ---
HPI HPI - GI History of Present Illness Chief Complaint: Abd Pain Detail of Chief Complaint: Incarcerated right inguinal hernia. Informant: patient Abdominal Pain/Flank Pain Onset: Today and Hours Context: Gradual Onset Timing: Continuous Quality: Aching Current Severity: Moderate Maximum Severity: Moderate Worsened by: Nothing Nausea/Vomiting/Emesis GI Symptom: Negative for Nausea or Vomiting Diarrhea/Melena/Hematochezia GI Symptom: Negative for Diarrhea or Melena Associated Symptoms Associated Symptoms: Negative for Dysuria, Frequency or Hematuria Narrative Narrative: 80-year-old male history of a known right inguinal hernia in the upcoming surgery to repair. Also history of diabetes and prostatectomy due to cancer and recent stroke late March for which he was hospitalized most in April. Several hours ago he developed bulging of his right inguinal hernia and now it will not go back in. He denies any nausea or vomiting. Denies any fever. No dysuria. He has already seen a general surgeon about this and they are planning an upcoming repair. Patient is not on any blood thinners other than a baby aspirin. Prior similar symptoms: No Recent Illness/Hospitalization: Yes [facility] Medical History Right inguinal hernia Home Medications ?Medication ?Instructions ?Recorded ?Last Taken ?Type atorvastatin 80 mg tablet 80 mg PO DAILY cholesterol 0 12/03/17 Unknown History glipizide 5 mg tablet 5 mg PO DAILY diabetes 12/03 Unknown History metformin 850 mg tablet 850 mg PO DAILY diabetes 06/12 Unknown History multivitamin (Multiple Vitamins 1 ea PO DAILY suppleme nt 12/03/17 Unknown History tablet) omeprazole 20 mg capsule,delayed 20 mg PO DAILY gerd 0 12/03/17 12/16/17 04:00 History release aspirin 81 mg tablet 162 mg PO DAILY 06/27/25 Unk nown History carvedilol 12.5 mg tablet 12.5 mg PO BID 06/27/25 Unkn own History empagliflozin 10 mg tablet 25 mg PO QAM 06/27/25 Unkno wn History (Jardiance) evolocumab 140 mg/mL subcutaneous 140 mg subcut Q2W Unknown History pen injector (Afshin Jarvis) losartan 100 mg tablet 50 mg PO QDAY 06/27/25 Unkno wn History sertraline 25 mg tablet 25 mg PO QDAY 06/27/25 Unkno wn History docusate sodium 100 mg capsule 100 mg PO BID PRN const ipation 06/29/25 Unknown History melatonin 10 mg capsule 10 mg PO QHS 06/29/25 Unknow n History Allergy/AdvReac Type Severity Reaction Status Date / Time No Known Allergies Allergy Verified 06/27/25 13:17 Surgical History History of open heart surgery Hx of radical prostatectomy Social History Smoking Status: Former smoker alcohol intake: current alcohol intake frequency: holidays/special occasions only substance use type: does not use ROS ROS ED ROS Narrative Right lower quadrant abdominal pain. Constitutional Constitutional ED: Denies chills or fever(s) ENT ENT ED: Denies ear pain Cardiovascular Cardiovascular: Denies chest pain Respiratory/Chest Respiratory/Chest: Denies cough or dyspnea Gastrointestinal Gastrointestinal: Reports abdominal pain; Denies constipation, diarrhea, melena, nausea or vomiting Genitourinary Genitourinary ED: Denies dysuria or hematuria Musculoskeletal Musculoskeletal: Denies arthralgias or back pain Integumentary Denies abscess Neurologic Neurologic: Denies headache(s) Psychiatric Psychiatric: Denies anxiety Endocrine Endocrinology: Denies polydipsia Hematologic/Lymphatic Hematologic/Lymphatic: Denies easy bleeding, easy bruising or lymphadenopathy Allergic/Immunologic Allergic/Immunologic ED: Denies mouth swelling, tongue swelling or urticaria EXAM Physical Exam Narrative Exam Narrative: Send 10-year-old male lying in bed. at bedside. Vital signs are stable afebrile. H EENT exam pupils round reactive light. Moist mucous membranes. Neck nontender. Lungs clear equal and symmetrical. Heart regular rhythm rate about 80 no murmur. Chest wall and ribs nontender. Abdomen soft nondistended normal bowel sounds without peritoneal signs. He does have a right inguinal hernia that is protruding. He is tender to palpation. It does not spontaneou sly nor at this time cannot reduce it. Appears to be incarcerated. No signs of bowel obstruction. Otherwise his abdomen soft and flat. Moving all 4 extremities. He has a brace on his right ankle from his stroke. Neurologically he is awake and alert. Answering questions following commands. He does have some abnormal speech from his recent stroke. But he is easily understood. Const Vital Signs: 06/29/25 01:50 06/29/25 02:47 Temperature 97.5 F L Temperature Source Oral Pulse Rate 78 69 Respiratory Rate 18 18 Blood Pressure 172/82 H 153/82 H Blood Pressure Mean 112 105 Pulse Ox 98 95 Oxygen Delivery Method Room Air Room Air Positive well nourished and well developed; Negative for obese, cachectic, contractures or unkempt General Appearance ED: well developed; Negative for unkempt, cachectic, contractures or pallor Nutritional Appearance: Negative for cachectic or obese HEENT Reports moist mucous membranes normocephalic and atraumatic Eyes PERRL and EOMs intact bilaterally Neck no lymphadenopathy, supple and no JVD Resp normal respiratory effort and clear to auscultation bilaterally Cardio regular rate, regular rhythm, S1 normal heart sound, S2 normal heart sound and no murmurs GI non-distended and no masses; Negative for non-tender GI Narrative: Right inguinal hernia. Currently incarcerated. Tender. Initially unable to reduce it. There is no signs of bowel obstruction. Auscultation: normoactive bowel sounds Palpation: soft, tender and hernia; Negative for guarding, rigid, mass, pulsatile mass or rebound tenderness present Back/Spine no CVA tenderness Extremity Negative for full ROM Extremity Narrative: Brace right lower extremity due to recent stroke. General Extremety ED: Negative for edema or tenderness General Extremity: Negative for edema Neuro CN's II-XII intact bilaterally and moves all extremities Sensorium / Orientation: alert, oriented to person, oriented to place and oriented to time Motor Exam: strength abnormal Psych mental status grossly normal and thought process normal Appearance: Negative for unkempt Skin no wounds General Skin Exam: Negative for jaundice or pallor Lesions: no lesions Rashes: no rashes MDM MDM MDM Narrative Medical decision making narrative: 80-year-old male known history of a right inguinal hernia tonight it is inca rcerated and has been for the last several hours. He will be given IV morphine and Zofran. Ice pack applied to the area placed in Trendelenburg position and will try to reduce the hernia if unable I will speak to general surgery have them come and evaluate the patient for possible surgery. Screening labs are being obtained. He will be made NPO. At 2:25 AM and attempted to reduce the hernia the area is too tender the patient cannot tolerate. He is already being given morphine and Zofran. Has been an ice pack in place and he is in a Trendelenburg position. I wait 10 more minutes and try a second time if unable I will speak to general surgery on-call. I made a second attempt to reduce the hernia and again unable the patient is having too much discomfort. General surgery is on page. Patient will be given a second dose of morphine. Dr. Jacob Abebe came in and was able to reduce the patient's hernia. He gave both the patient and the option to be admitted and have the hernia repaired on Thursday or to go home. Patient really wanted to be discharged. He and his both know to return if he is having increasing pain, intractable vomiting or if his hernia comes back Does not go back in. Dr. Kang will follow back up with them to give them a time on Thursday to have the surgery done. History & Record Review Discussion w/independent historian: Patient and Family Additional record(s) reviewed:: Prior inpatient record, Prior outpatient record, Prior ED visit and Prior labs Lab Data Attestation: I reviewed the patient's lab results. Lab results narrative: CBC shows white count 12.8. H&H 11.9 and 36. Platelets 279. Electrolytes show normal At 12. BUN and creatinine are 31 and 1.3. Glucose 177. Labs: Laboratory Results - last 24 hr 06/29/25 02:05 WBC 12.8 H RBC 4.09 L Hgb 11.9 L Hct 36.5 L MCV 89.2 MCH 29.1 MCHC 32.6 RDW Std Deviation 45.1 H RDW Coeff of Amos 14.0 Plt Count 279 MPV 9.1 Immature Gran % (Auto) 0.500 Neut % (Auto) 73.7 H Lymph % (Auto) 11.3 L [place] % (Auto) 10.6 H Eos % (Auto) 3.2 Baso % (Auto) 0.7 Absolute Neuts (auto) 9.5 H Absolute Lymphs (auto) 1.45 Nucleated RBC % 0 Sodium 138 Potassium 4.3 Chloride 103 Carbon Dioxide 22.1 Anion Gap 12 BUN 31 H Creatinine 1.30 H Estim Creat Clear Calc 45.68 L Est GFR (MDRD) Non-Af 56 L BUN/Creatinine Ratio 23.8 H Glucose 177 H Calcium 9.6 Discharge Plan Triage Chief Complaint: Abd Pain ED Provider: Raji Rothman Dx/Rx/DC Orders Clinical Impression: Abdominal pain, Incarcerated inguinal hernia, History of stroke, History of diabetes mellitus Prescriptions: No Action carvedilol 12.5 mg tablet 12.5 mg PO BID losartan 100 mg tablet 50 mg PO QDAY sertraline 25 mg tablet 25 mg PO QDAY Repatha SureClick 140 mg/mL pen injector 140 mg subcut Q2W Jardiance 10 mg tablet 25 mg PO QAM aspirin 81 mg tablet 162 mg PO DAILY multivitamin [Multiple Vitamins] 1 EACH tablet 1 ea PO DAILY atorvastatin 80 MG tablet 80 mg PO DAILY metformin 850 MG tablet 850 mg PO DAILY omeprazole 20 MG capsule 20 mg PO DAILY glipizide 5 MG tablet 5 mg PO DAILY melatonin 10 mg capsule 10 mg PO QHS docusate sodium 100 MG capsule 100 mg PO BID PRN (Reason: constipation) Primary Care Provider: Elena Flores Referrals: Elena Flores, [Primary Care Provider] - Print Language: Syriac Disposition Disposition: Home, Self Care
--- OUTSIDE RECORDS SUMMARY | 2025-06-29 02:13 | XMS RPT_ITS | CCD ---
Author Organization [facility] Care Team Providers Care Guide Dog Instructor Name Role Phone MARK RODRIGUEZ, DR DÍAZ Primary Care Physician STACEY DRIVER, HERMINIA Attending Unavaila ble MARK DO, DR DÍAZ Primary Care Unavailable MARK DO, DR DÍAZ Primary Care Unavailable MARK DO, DR DÍAZ Attending Unavailable STACEY DRIVER, HERMINIA Attending Unavaila ble MARK DO, DR DÍAZ Primary Care Unavailable MARK DO, DR DÍAZ Primary Care Unavailable MARK DO, DR DÍAZ Attending Unavailable STACEY DRIVER, HERMINIA Attending Unavaila ble MARK DO, DR DÍAZ Primary Care Unavailable STACEY DRIVER, HERMINIA Attending Unavaila ble MARK DO, DR DÍAZ Primary Care Unavailable MARK DO, DR DÍAZ Attending Unavailable MARK DO, DR DÍAZ Primary Care Unavailable MARK DO, DR DÍAZ Attending Unavailable MARK DO, DR DÍAZ Primary Care Unavailable TIM DRIVER, DR LEXII Acevedo Attending Unavailable MARK DO, DR DÍAZ Primary Care Unavailable MARK DO, DR DÍAZ Primary Care Unavailable TIM DRIVER, DR LEXII Acevedo Attending Unavailable MARK DO, DR DÍAZ Primary Care Unavailable MARK DO, DR DÍAZ Attending Unavailable MARK DO, DR DÍAZ Primary Care Unavailable STACEY DRIVER, HERMINIA Attending Unavaila adán IBARRA MD, HERMINIA Attending Unavaila ble MARK , DR DÍAZ Primary Care Unavailable Mark DO, Dr. Bre Leiva Primary Care Provider Obie DRIVER, Dr. Randy Rucker Attending Provider Obie DRIVER, Dr. Randy Rucker Referring Provider PROVIDER, UNKNOWN Attending Unavailable PROVIDER, UNKNOWN Admitting Unavailable Mark DO, Bre Primary Care Provider [phone] Bre Flores DO Primary Care Provider [phone] BRE FLORES Primary Care Unavailable WELLINGTON KAY Referring Unavailable BRIANNA BARRIGA Attending Unavailable RAPHAEL, MARIBEL Consulting Unavailable PONWALLY, HARIKRISHNA Admitting Unavailable LAKESHA SAMSON Attending Unavailable MARK, BRE Primary Care Unavailable NONE, PCP Referring Unavailable MADAN ALVARES Admitting Unavailable ESPERANZA JEFFERY Consulting Unavailable MARK, BRE Primary Care Unavailable RICK CHOW Attending Unavailable MARK, BRE Attending Unavailable MARK, BRE Primary Care Unavailable MARK, BRE Attending Unavailable MARK, BRE Primary Care Unavailable MARK, BRE Attending Unavailable MARK, BRE Primary Care Unavailable MARK, BRE Primary Care Unavailable MARK, BRE Attending Unavailable MARK, BRE Primary Care Unavailable MARK, BRE Attending Unavailable MARK, BRE Primary Care Unavailable MARYAM LOBO Attending Unavailab le MRAK, BRE Primary Care Unavailable BERNICE SOTOMAYOR DO Attending Unavailable CHRISTEN BLANCO MD Consulting Unavailable Mark RODRIGUEZ, Dr. Bre Leiva Referring Provider [phone] Esvin DRIVER, Dr. James Attending Provider [phone] Bre Flores Primary Care Unavailable Randy Ragland Attending Unavailable Randy Ragland Referring Unavailable Bre Flores Primary Care Unavailable Randy Ragland Attending Unavailable Randy Ragland Referring Unavailable Bre Flores Primary Care Unavailable Jacob Mcallister Attending Unavailable Bre Flores Primary Care Unavailable Bre Flores Referring Unavailable Jacob Mcallister Attending Unavailable Bre Flores Primary Care Unavailable Randy Ragland Attending Unavailable Randy Ragland Referring Unavailable Allergies Allergy Classification Reported Allergen(s) Allergy Type Date of Onset Reaction(s) Facility (20 sources) Azithromycin; Translations: [azithromycin] Drug Allergy 5 Eruption of skin (disorder), Rash [facility] Work Phone: (20 sources) Fosinopril; Translations: [fosinopril] Drug Allergy 5 Unknown (qualifier value), Unknown [facility] Work Phone: Comment on above: generic caused const ipation (19 sources) Lovastatin; Translations: [lovastatin] Drug Allergy Unknown (qualifier value) [facility] Work Phone: Comment on above: generic causes const ipation (11 sources) Lovastatin Allergy to substance 5 Unknown [email or web address] Medications Current Medications Medication Drug Class(es) Dates Sig (Normalized) Sig (Original) amLODIPine 10 mg oral tablet (19 sources) Dihydropyridine Calcium Channel Alejandra Start: 04-28-2025 End: 04-29-2026 take 1 tablet by mouth once daily amLODIPine (Norvasc) 10 MG tablet Take 1 tablet (10 mg) by mouth daily. 04/29/2025 04/29/2026 Active Start: 04-26-2025 End: 04-27-2025 aspirin 81 mg oral tablet (20 sources) Platelet Aggregation Inhibitor, Nonsteroidal Anti-inflammatory Drug Start: 06-27-2025 take 1 tablet by mouth twice daily Aspirin 81 mg tablet Active 81 mg PO TWICE A DAY June 27, 2025 12:00am Start: 05-12-2025 End: 05-12-2025 take 162 mg by mouth once daily 162 mg, Oral, Daily, F irst dose on Thu05/12/25 at 0900, Do not crush, chew, or split. Start: 05-11-2025 End: 05-11-2025 take 325 mg by mouth once 325 mg, Oral, Once, On Trish at 1535, For 1 dose, Do not crush, chew, or split. Start: 04-23-2025 End: 05-04-2026 aspirin 81 MG EC tablet Take 2 tablets (162 mg) by mouth daily. Do not start before May 04, 2025. 05/04/2025 05/04/2026 Active Start: 04-12-2018 take 1 dose by mouth once delmis y aspirin Dose : 162 mg =, Oral, qDay, 0 Refill(s) Start Date: 04/12/18 Status: Ordered Medication Dispense Status: Completed Total Allowed Fills: 1 Fills Dispensed: 0 Start: 04-12-2018 take 1 dose by mouth once delmis y aspirin Dose : 81 mg =, Oral, qDay, 0 Refill(s) Start Date: 04/12/18 Status: Ordered Medication Dispense Status: Completed Total Allowed Fills: 1 Fills Dispensed: 0 Start: 12-03-2017 End: 12-18-2017 take 1 tablet by mouth once daily Aspirin 81 MG tablet Discontinued 81 mg PO DAILY@0800 December 03, 2017 1:00am December 18, 2017 9:12am [place] Calcium (1 source) Phosphate Binder, Calcium Start: 08-09-2019 calcium (as carbonate) 600 mg oral tablet Dose : 1,200 mg = 2 tab(s), Oral, qDay, 0 Refill(s) Start Date: 08/09/19 Status: Ordered calcium carbonate 1500 mg oral tablet (10 sources) Start: 08-09-2019 calcium (as carbonate) 600 mg oral tablet Dose : 1,200 mg = 2 tab(s), Oral, qDay, 0 Refill(s) Start Date: 08/09/19 Status: Ordered carvedilol 12.5 mg oral tablet (20 sources) alpha-Adrenergic Alejandra, beta-Adrenergic Alejandra Start: 06-27-2025 take 1 tablet by mouth twice daily Carvedilol 12.5 mg tablet Active 12.5 mg PO TWICE A DAY June 27, 2025 12:00am Start: 04-27-2025 End: 04-28-2025 Start: 06-23-2024 End: 05-12-2025 carvedilol 12.5 mg oral tabl et Dose : 12.5 mg = 1 tab(s), Oral, BID, # 180 tab(s), 3 Refill(s), Pharmacy: [facility]/pharmacy #[id number], 181, cm, 03/07/25 9:15:00 EDT, Height, kg, 03/07/25 9:15:00 EDT, Dosing Weight Start Date: 03/24/25 Status: Ordered Medication Dispense Status: Completed Quantity: 180.0 Unit: tab(s) Total Allowed Fills: 4 Fills Dispensed: 0 Start: 03-04-2024 carvedilol 12. 5 mg oral tablet Dose : 12.5 mg = 1 tab(s), Oral, BID, # 180 tab(s), 3 Refill(s) Start Date: 03/04/24 Status: Ordered Start: 06-16-2023 carvedilol 12. 5 mg oral tablet Dose : 12.5 mg = 1 tab(s), Oral, BID, # 180 tab(s), 3 Refill(s), Pharmacy: [facility]/pharmacy #[id number], 180.3, cm, 06/16/23 14:39:00 EDT, Height, kg, 06/16/23 14:39:00 EDT, Dosing Weight Start Date: 06/16/23 Status: Ordered Start: 03-20-2023 carvedilol 6.2 5 mg oral tablet Dose : 6.25 mg = 1 tab(s), Oral, BIDM, # 180 tab(s), 3 Refill(s) Start Date: 03/20/23 Status: Ordered cholecalciferol 0.125 mg oral capsule (6 sources) Vitamin D Start: 12-03-2017 take 1 capsule by mouth at bedtime Cholecalciferol (Vitamin D3) 5,000 UNIT capsule Active 5000 U PO AT BEDTIME December 03, 2017 1:00am supplement docusate sodium 100 mg oral capsule (6 sources) Start: 12-18-2017 take 1 capsule by mouth twice daily Docusate Sodium 100 MG capsule Active 100 mg PO TWICE A DAY December 18, 2017 1:00am docusate sodium 50 mg / sennosides, shelter 8.6 mg oral tablet (15 sources) Start: 04-29-2025 End: 04-29-2026 take 2 tablets by mouth once daily senna-docusate sodium (Senokot-S) 8.6-50 MG tablet Take 2 tablets by mouth daily. 04/29/2025 04/29/2026 Active Start: 04-27-2025 End: 04-29-2026 doxazosin 2 mg oral tablet (20 sources) alpha-Adrenergic Alejandra Start: 10-11-2024 End: 05-12-2025 doxazosin 2 mg oral tablet Dose : 2 mg = 1 tab(s), Oral, Daily, # 90 tab(s), 3 Refill(s) Start Date: 10/11/24 Status: Ordered Medication Dispense Status: Completed Quantity: 90.0 Unit: tab(s) Total Allowed Fills: 4 Fills Dispensed: 0 Start: 10-02-2023 doxazosin 2 mg oral tablet Dose : 2 mg = 1 tab(s), Oral, Daily, # 90 tab(s), 3 Refill(s) Start Date: 10/02/23 Status: Ordered Start: 03-20-2023 doxazosin 2 mg oral tablet Dose : 2 mg = 1 tab(s), Oral, Daily, # 90 tab(s), 3 Refill(s) Start Date: 03/20/23 Status: Ordered Start: 03-14-2021 doxazosin 2 mg oral tablet Dose : 2 mg = 1 tab(s), Oral, Daily, # 30 tab(s), 0 Refill(s) Start Date: 03/14/21 Status: Ordered empagliflozin 10 mg oral tablet (20 sources) Sodium-Glucose Cotransporter 2 Inhibitor Start: 06-27-2025 take 1 tablet by mouth once daily in the morning Empagliflozin (Jardiance) 10 mg tablet Active 10 mg PO EVERY MORNING June 27, 2025 12:00am Start: 03-20-2023 Jardiance 25 m g oral tablet Dose : 25 mg = 1 tab(s), Oral, qAM, # 90 tab(s), 3 Refill(s) Start Date: 03/20/23 Status: Ordered Medication Dispense Status: Completed Quantity: 90.0 Unit: tab(s) Total Allowed Fills: 4 Fills Dispensed: 0 Start: 02-25-2022 Jardiance 10 m g oral tablet Dose : 10 mg = 1 tab(s), Oral, qAM, # 90 tab(s), 3 Refill(s) Start Date: 02/25/22 Status: Ordered Start: 08-09-2019 Jardiance 10 m g oral tablet Dose : 10 mg = 1 tab(s), Oral, qAM, # 90 tab(s), 3 Refill(s) Start Date: 08/09/19 Status: Ordered 1 ml evolocumab 140 mg/ml auto-injector (20 sources) PCSK9 Inhibitor Start: 03-07-2025 evolocumab (Re patha SureClick) 140 MG/ML injection Inject 140 mg under the skin every 14 (fourteen) days. 03/07/2025 Active Start: 03-07-2025 inject 1 dose by sub cutaneous injection every other week Repatha SureClick 140 mg/mL subcutaneous solution Dose : 140 mg =, Subcutaneous, q2wk, rotate injection sites, # 2 EA, 11 Refill(s) Start Date: 03/07/25 Status: Ordered Medication Dispense Status: Completed Quantity: 2.0 Unit: EA Total Allowed Fills: 12 Fills Dispensed: 0 Start: 07-06-2024 inject 1 dose by sub cutaneous injection every other week Repatha SureClick 140 mg/mL subcutaneous solution Dose : 140 mg =, Subcutaneous, q2wk, rotate injection sites, # 2 EA, 11 Refill(s), Pharmacy: [facility]/pharmacy #[id number], 180.3, cm, 03/22/24 13:23:00 EDT, Height, kg, 03/22/24 13:23:00 EDT, Dosing Weight Start Date: 07/06/24 Status: Ordered Quantity: 2.0 Unit: EA Repeat number: 12 Start: 06-16-2023 inject 1 dose by sub cutaneous injection every other week Repatha SureClick 140 mg/mL subcutaneous solution Dose : 140 mg =, Subcutaneous, q2wk, rotate injection sites, # 2 EA, 11 Refill(s), 180.3, cm, 06/16/23 14:39:00 EDT, Height, kg, 06/16/23 14:39:00 EDT, Dosing Weight Start Date: 06/16/23 Status: Ordered Evolocumab (Repatha Sureclick) 140 mg/mL pen injector (1 source) Start: 06-27-2025 Evolocumab (Repatha Sureclick) 140 mg/mL pen injector Active 140 mg SC every 2 weeks June 27, 2025 12:00am ezetimibe 10 mg oral tablet (20 sources) Dietary Cholesterol Absorption Inhibitor Start: 06-27-2025 take 1 tablet by mouth once daily Ezetimibe 10 mg tablet Active 10 mg PO daily June 27, 2025 12:00am Start: 03-07-2025 End: 05-12-2025 take 1 tablet by mouth once daily ezetimibe (Zetia) 10 MG tablet Take 10 mg by mouth daily. 03/07/2025 Active Start: 10-11-2024 Zetia 10 mg or al tablet Dose : 10 mg = 1 tab(s), Oral, qDay, # 90 tab(s), 3 Refill(s) Start Date: 10/11/24 Status: Ordered Quantity: 90.0 Unit: tab(s) Repeat number: 4 Start: 03-04-2024 Zetia 10 mg or al tablet Dose : 10 mg = 1 tab(s), Oral, qDay, # 90 tab(s), 3 Refill(s) Start Date: 03/04/24 Status: Ordered Start: 03-20-2023 Zetia 10 mg or al tablet Dose : 10 mg = 1 tab(s), Oral, qDay, # 90 tab(s), 3 Refill(s), Pharmacy: [facility]/pharmacy #[id number], 180.3, cm, 03/20/23 8:31:00 EDT, Height Start Date: 03/20/23 Status: Ordered glipiZIDE 5 mg oral tablet (20 sources) Sulfonylurea Start: 05-12-2025 End: 05-12-2025 2.5 mg, Oral, Daily before breakfast, First dose on Thu05/12/25 at 0730, Substituted for glipiZIDE ER/XL (Glucotrol XL). Start: 10-11-2024 take 1 tablet by andrae th once daily glipiZIDE XL (Glucotrol XL) 2.5 MG 24 hr tablet Take 2.5 mg by mouth daily. 10/11/2024 Active Start: 10-02-2023 glipiZIDE 2.5 mg oral tablet, extended release Dose : 2.5 mg = 1 tab(s), Oral, qDayM, ok to fill now, # 90 tab(s), 3 Refill(s), Diabetes Start Date: 10/02/23 Status: Ordered Start: 07-03-2023 glipiZIDE 2.5 mg oral tablet, extended release Dose : 2.5 mg = 1 tab(s), Oral, qDayM, ok to fill now, # 90 tab(s), 3 Refill(s), Diabetes Start Date: 07/03/23 Status: Ordered Start: 02-25-2022 glipiZIDE 2.5 mg oral tablet, extended release Dose : 2.5 mg = 1 tab(s), Oral, qDayM, ok to fill now, # 90 tab(s), 3 Refill(s), Diabetes Start Date: 10/14/22 Status: Ordered Start: 10-01-2021 glipiZIDE 2.5 mg oral tablet, extended release Dose : 2.5 mg = 1 tab(s), Oral, qDayM, ok to fill now, # 90 tab(s), 3 Refill(s), Diabetes, Dosing Weight Start Date: 10/01/21 Status: Ordered Start: 12-03-2017 glipiZIDE 5 mg oral tablet Dose : 5 mg = 1 tab(s), Oral, qDay, # 90 tab(s), 1 Refill(s), Pharmacy: [facility]/pharmacy #[id number], 180.3, cm, 05/30/25 13:01:00 EDT, Height, kg, 05/30/25 13:01:00 EDT, Dosing Weight Start Date: 05/30/25 Status: Ordered Medication Dispense Status: Completed Quantity: 90.0 Unit: tab(s) Total Allowed Fills: 2 Fills Dispensed: 0 take 1 tablet by andrae once daily glipiZIDE (Glucotrol) 5 MG tablet Take 5 mg by mouth daily. Active hydroCHLOROthiazide 25 mg oral tablet (6 sources) Thiazide Diuretic Start: 12-03-2017 take 1 tablet by mouth once daily Hydrochlorothiazide 25 MG tablet Active 25 mg PO DAILY December 03, 2017 1:00am bp ibuprofen 200 mg oral tablet (19 sources) Nonsteroidal Anti-inflammator y Drug Start: 10-17-2019 ibuprofen 200 mg oral tablet Dose : 400 mg = 2 tab(s), Oral, Daily, PRN as needed for pain, Take with food or milk., 0 Refill(s) Start Date: 10/17/19 Status: Ordered Medication Dispense Status: Completed Total Allowed Fills: 1 Fills Dispensed: 0 icosapent ethyl 1000 mg oral capsule (5 sources) Start: 03-13-2023 Vascepa 1 g oral capsule Dose : 2 gram(s) = 2 cap(s), Oral, BID, # 360 cap(s), 3 Refill(s), 180.3, cm, 03/13/23 8:55:00 EDT, Height, kg, 03/13/23 8:55:00 EDT, Dosing Weight Start Date: 03/13/23 Status: Ordered 24 hr isosorbide mononitrate 30 mg extended release oral tablet (16 sources) Nitrate Vasodilator Start: 06-27-2025 take 1 tablet by mouth once daily in the morning, then take 1 tablet by mouth every twenty-fou r hours Isosorbide Mononitrate 30 mg tablet extended release 24 hr Active 30 mg PO EVERY MORNING June 27, 2025 12:00am Start: 03-07-2025 End: 05-01-2025 Start: 10-11-2024 isosorbide mon onitrate 30 mg oral tablet, extended release Dose : 30 mg = 1 tab(s), Oral, qAM, # 90 tab(s), 3 Refill(s) Start Date: 10/11/24 Status: Ordered Quantity: 90.0 Unit: tab(s) Repeat number: 4 Start: 03-04-2024 isosorbide mon onitrate 30 mg oral tablet, extended release Dose : 30 mg = 1 tab(s), Oral, qAM, # 90 tab(s), 3 Refill(s) Start Date: 03/04/24 Status: Ordered Start: 03-20-2023 isosorbide mon onitrate 30 mg oral tablet, extended release Dose : 30 mg = 1 tab(s), Oral, qAM, # 90 tab(s), 3 Refill(s) Start Date: 03/20/23 Status: Ordered losartan potassium 100 mg oral tablet (20 sources) Angiotensin 2 Receptor Alejandra Start: 06-27-2025 take 1 tablet by mouth once daily Losartan 100 mg tablet Active 100 mg PO daily June 27, 2025 12:00am Start: 05-30-2025 losartan 50 mg oral tablet Dose : 50 mg = 1 tab(s), Oral, qDay, # 90 tab(s), 1 Refill(s), Pharmacy: [facility]/pharmacy #[id number], 180.3, cm, 05/30/25 13:01:00 EDT, Height, kg, 05/30/25 13:01:00 EDT, Dosing Weight Start Date: 05/30/25 Status: Ordered Medication Dispense Status: Completed Quantity: 90.0 Unit: tab(s) Total Allowed Fills: 2 Fills Dispensed: 0 Start: 04-24-2025 End: 04-25-2025 Start: 10-11-2024 End: 05-12-2025 take 1 tablet by mouth once daily losartan (Cozaar) 100 MG tablet Take 100 mg by mouth daily. 10/11/2024 Active Start: 10-02-2023 losartan 100 m g oral tablet Dose : 100 mg = 1 tab(s), Oral, qDay, # 90 tab(s), 3 Refill(s) Start Date: 10/02/23 Status: Ordered Start: 09-21-2023 losartan 100 m g oral tablet Dose : 100 mg = 1 tab(s), Oral, qDay, # 90 tab(s), 3 Refill(s), Pharmacy: [facility]/pharmacy #[id number], 180.3, cm, 07/16/23 15:06:00 EDT, Height, kg, 07/16/23 15:06:00 EDT, Dosing Weight Start Date: 09/21/23 Status: Ordered Start: 07-03-2023 losartan 100 m g oral tablet Dose : 100 mg = 1 tab(s), Oral, qDay, # 90 tab(s), 0 Refill(s) Start Date: 07/03/23 Status: Ordered Start: 03-20-2023 losartan 50 mg oral tablet Dose : 50 mg = 1 tab(s), Oral, qDay, # 90 tab(s), 3 Refill(s) Start Date: 03/20/23 Status: Ordered Start: 02-25-2022 losartan 100 m g oral tablet Dose : 100 mg = 1 tab(s), Oral, qDay, # 90 tab(s), 3 Refill(s) Start Date: 02/25/22 Status: Ordered Start: 10-02-2021 losartan 100 m g oral tablet Dose : 100 mg = 1 tab(s), Oral, qDay, # 90 tab(s), 3 Refill(s) Start Date: 10/02/21 Status: Ordered magnesium oxide 400 mg oral tablet (16 sources) Start: 12-19-2022 take 1 mg by mouth once daily magnesium oxide 400 mg oral tablet mg = tab(s), Oral, qDay, 0 Refill(s) Start Date: 12/19/22 Status: Ordered Medication Dispense Status: Completed Total Allowed Fills: 1 Fills Dispensed: 0 melatonin 5 mg oral tablet (20 sources) Start: 10-17-2019 End: 05-28-2025 melatonin 5 mg oral tablet Dose : 10 mg = 2 tab(s), Oral, qHS, PRN as needed for insomnia, 0 Refill(s) Start Date: 10/17/19 Status: Ordered Medication Dispense Status: Completed Total Allowed Fills: 1 Fills Dispensed: 0 metFORMIN hydrochloride 850 mg oral tablet (20 sources) Biguanide Start: 03-07-2025 take 1 tablet by mouth once daily metFORMIN 850 mg oral tablet (IR) See Instructions, TAKE 1 TABLET BY MOUTH qd, # 180 tab(s), 3 Refill(s) Start Date: 03/07/25 Status: Ordered Medication Dispense Status: Completed Quantity: 180.0 Unit: tab(s) Total Allowed Fills: 4 Fills Dispensed: 0 Start: 12-03-2017 End: 05-12-2025 take 1 tablet by mouth twice daily Metformin 850 MG tablet Active 850 mg PO TWICE A DAY December 03, 2017 1:00am diabetes 24 hr metoprolol succinate 50 mg extended release oral tablet (9 sources) beta-Adrenergic Alejandra Start: 02-25-2022 metopr olol succinate 50 mg oral TABLET extended release Dose : 50 mg = 1 tab(s), Oral, BID, ok to fill now, # 180 tab(s), 3 Refill(s) Start Date: 02/25/22 Status: Ordered Start: 12-03-2017 End: 06-27-2025 take 1 tablet by mouth once daily Metoprolol Tartrate 50 MG tablet Discontinued 50 mg PO DAILY December 03, 2017 1:00am June 27, 2025 1:18pm bp Multivitamin (Multiple Vitamins) 1 EACH tablet (6 sources) Start: 12-03-2017 take 1 tablet by mouth once daily Multivitamin (Multiple Vitamins) 1 EACH tablet Active 1 EACH PO DAILY December 03, 2017 11:03am Start: 12-03-2017 take 1 tablet by andrae th once daily Multivitamin (Multiple Vitamins) 1 EACH tablet Active 1 NMA PO DAILY December 03, 2017 1:00am supplement Start: 12-03-2017 take 1 tablet by andrae th once daily Multivitamin (Multiple Vitamins) 1 EACH tablet Active 1 NMA PO DAILY December 03, 2017 1:00am Start: 12-03-2017 take 1 tablet by andrae th once daily Multivitamin (Multiple Vitamins) 1 EACH tablet Active 1 EACH PO DAILY December 03, 2017 1:00am Start: 12-03-2017 take 1 tablet by andrae th once daily Multivitamin (Multiple Vitamins) 1 EACH tablet Active 1 EACH PO DAILY December 03, 2017 12:00am Multivitamin preparation (19 sources) Start: 04-12-2018 take 1 tablet by mouth once daily Multivitamin Dose = 1 tab(s), Oral, Daily, 0 Refill(s) Start Date: 04/12/18 Status: Ordered Medication Dispense Status: Completed Total Allowed Fills: 1 Fills Dispensed: 0 Start: 04-12-2018 take 1 tablet by andrae th once daily Multivitamin Dose = 1 tab(s), Oral, Daily, 0 Refill(s) Start Date: 04/12/18 Status: Ordered Repeat number: 1 Start: 04-12-2018 take 1 tablet by andrae th once daily Multivitamin Dose = 1 tab(s), Oral, Daily, 0 Refill(s) Start Date: 04/12/18 Status: Ordered nitroglycerin 0.4 mg sublingual tablet (16 sources) Nitrate Vasodilator Start: 12-19-2022 nitroglycerin 0.4 mg sublingual tablet 0.4 mg Dose = 1 tab(s), Sublingual, q5min, PRN as needed for chest pain, # 100 tab(s), 0 Refill(s) Start Date: 12/19/22 Status: Ordered Medication Dispense Status: Completed Quantity: 100.0 Unit: tab(s) Total Allowed Fills: 1 Fills Dispensed: 0 omeprazole 20 mg delayed release oral capsule (20 sources) Proton Pump Inhibitor Start: 12-03-2017 take 1 capsule by mouth once daily Omeprazole 20 MG capsule Active 20 mg PO DAILY December 03, 2017 1:00am gerd sertraline 25 mg oral tablet (9 sources) Serotonin Reuptake Inhibitor Start: 06-27-2025 take 1 tablet by mouth once daily Sertraline 25 mg tablet Active 25 mg PO daily June 27, 2025 12:00am Start: 05-23-2025 sertraline 25 mg oral tablet Dose : 25 mg = 1 tab(s), Oral, qDay, # 90 tab(s), 1 Refill(s), Pharmacy: [facility]/pharmacy #[id number], 180.3, cm, 05/30/25 13:01:00 EDT, Height, kg, 05/30/25 13:01:00 EDT, Dosing Weight Start Date: 05/30/25 Status: Ordered Medication Dispense Status: Completed Quantity: 90.0 Unit: tab(s) Total Allowed Fills: 2 Fills Dispensed: 0 Vitamin D3 50 mcg (2000 intl units) oral capsule (3 sources) Start: 03-04-2024 Vitamin D3 50 mcg (2000 intl units) oral capsule Dose : 50 mcg = 1 cap(s), Oral, qDay, # 60 cap(s), 0 Refill(s) Start Date: 03/04/24 Status: Ordered Quantity: 60.0 Unit: cap(s) Repeat number: 1 Start: 03-04-2024 Vitamin D3 50 mcg (2000 intl units) oral capsule Dose : 50 mcg = 1 cap(s), Oral, qDay, # 60 cap(s), 0 Refill(s) Start Date: 03/04/24 Status: Ordered Vitamin D3 5000 intl units ( 125 mcg) oral capsule (11 sources) Start: 10-17-2019 Vitamin D3 500 0 intl units (125 mcg) oral capsule Dose : 5,000 unit(s) = 1 cap(s), Oral, qDay, 0 Refill(s) Start Date: 10/17/19 Status: Ordered Completed/Discontinued Medications Medication Drug Class(es) Dates Sig (Normalized) Sig (Original) Acetaminophen (2 sources) Start: 05-11-2025 End: 05-12-2025 take 1 tablet by mouth every six hours as needed for pain and fever acetaminophen (Tylenol) tablet 650 mg acetaminophen 325 mg / HYDROcodone bitartrate 5 mg oral tablet (6 sources) Opioid Agonist Start: 12-18-2017 End: 06-27-2025 Hydrocodone-Acetami nophen 1 EACH tablet Discontinued 1 NMA PO EVERY 4 HOURS NEEDED as needed for Pain 10 5 0 December 18, 2017 9:07am June 27, 2025 1:18pm Malignant neoplasm of prostate Start: 12-18-2017 Hydrocodone-Ac etaminophen Active 1 EACH PO EVERY 4 HOURS NEEDED 10 5 December 18, 2017 8:07am atorvastatin 80 mg oral tabl et (20 sources) HMG-CoA Reductase Inhibitor Start: 04-22-2025 End: 04-24-2025 Start: 12-03-2017 End: 05-12-2025 take 1 tablet by mouth once daily Atorvastatin 80 MG tablet Active 80 mg PO DAILY December 03, 2017 1:00am cholesterol barium sulfate (Varibar THIN Liquid) 40 % suspension 30 mL (2 sources) Start: 05-11-2025 End: 05-11-2025 take 30 mL by mouth once 30 mL, Oral, Once, On Trish 05/11/25 at 1350, For 1 dose bisacodyl 10 mg rectal suppository (2 sources) Stimulant Laxative Start: 04-22-2025 End: 05-01-2025 take 10 mg rectal route every twenty-four hours as needed for constipation 100 ml calcium gluconate 20 mg/ml injection (2 sources) Start: 04-25-2025 End: 04-25-2025 cholecalciferol 9.52 unt/ml / glucose 357 mg/ml oral gel (2 sources) Vitamin D Start: 04-22-2025 End: 05-01-2025 ciprofloxacin 500 mg oral tablet (6 sources) Quinolone Antimicrobial Start: 12-18-2017 End: 06-27-2025 take 1 tablet by mouth twice daily Ciprofloxacin Hcl 500 MG tablet Discontinued 500 mg PO TWICE A DAY December 18, 2017 1:00am June 27, 2025 1:17pm clopidogrel 75 mg oral tablet (4 sources) [id number] Platelet Inhibitor Start: 04-23-2025 End: 05-01-2025 dapagliflozin 5 mg oral tablet (2 sources) Sodium-Glucose Cotransporter 2 Inhibitor Start: 05-12-2025 End: 05-12-2025 5 mg, Oral, Daily, First dose on Thu05/12/25 at 0900, Indications: Heart Failure, Type 2 Diabetes Mellitus 0.4 ml enoxaparin sodium 100 mg/ml prefilled syringe (6 sources) Low Molecular Weight Heparin Start: 05-12-2025 End: 05-12-2025 inject 40 mg by subcutaneous injection every twenty-four hours 40 mg, SubCUTAneous, Every 24 hours scheduled (Daily), First dose on Thu05/12/25 at 0900, Indication of Use: Prophylaxis-DVT/PE, Indications: Prophylaxis of Venous Thromboembolism Start: 04-24-2025 End: 05-01-2025 finasteride 5 mg oral tablet (6 sources) 5-alpha Reductase Inhibitor Start: 12-03-2017 End: 12-18-2017 take 1 tablet by mouth once daily Finasteride 5 MG tablet Discontinued 5 mg PO DAILY December 03, 2017 1:00am December 18, 2017 9:12am prostate glucagon (rdna) 1 mg injection (2 sources) Antihypoglycemic Agent Start: 04-22-2025 End: 05-01-2025 50 ml glucose 50 mg/ml injection (2 sources) Start: 04-22-2025 End: 05-01-2025 1 ml hydrALAZINE hydrochloride 20 mg/ml injection (5 sources) Arteriolar Vasodilator Start: 04-28-2025 End: 05-01-2025 Start: 04-22-2025 End: 04-28-2025 Start: 04-21-2025 End: 04-21-2025 hydrALAZINE Start: 04/21/25 1 0:00:00 PM EDT, Dose = 10 mg, = 0.5 mL, IV Push, Once, Stop: 04/21/25 10:01:34 PM EDT, 04/21/25 21:53:00 EDT Start Date: 04/21/25 Stop Date: 04/21/25 Status: Completed Repeat number: 1 insulin lispro 100 unt/ml injectable solution (2 sources) Insulin Analog Start: 04-23-2025 End: 05-01-2025 insulin, regular, human 100 unt/ml injectable solution (2 sources) Insulin Start: 04-22-2025 End: 04-23-2025 iopamidol (Isovue-370) 76 % injection 100 mL (2 sources) Start: 05-11-2025 End: 05-11-2025 take 100 mL intravenously once as needed 100 mL, IntraVENous, IMG once PRN, contrast, Starting on Trish 05/11/25 at 0952, For 1 dose labetalol hydrochloride 5 mg/ml injectable solution (2 sources) beta-Adrenergic Alejandra Start: 04-22-2025 End: 05-01-2025 lisinopril 40 mg oral tablet (6 sources) Angiotensin Converting Enzyme Inhibitor Start: 12-03-2017 End: 06-27-2025 take 1 tablet by mouth once daily Lisinopril (Zestril) 40 MG tablet Discontinued 40 mg PO DAILY December 03, 2017 1:00am June 27, 2025 1:19pm bp 100 ml magnesium sulfate 40 mg/ml injection (2 sources) Start: 04-24-2025 End: 04-24-2025 mupirocin 0.02 mg/mg topical ointment (2 sources) RNA Synthetase Inhibitor Antibacterial Start: 04-22-2025 End: 04-26-2025 ondansetron ODT (Zofran-ODT) disintegrating tablet 4 mg (2 sources) Start: 05-11-2025 End: 05-12-2025 take 1 tablet by mouth every eight hours as needed for nausea and vomiting ondansetron ODT (Zofran-ODT) disintegrating tablet 4 mg polyethylene glycol 3350 22642 mg powder for oral solution (4 sources) Osmotic Laxative Start: 05-11-2025 End: 05-12-2025 take 17 g by mouth every twenty-four hours as needed for constipation Start: 04-22-2025 End: 05-01-2025 take 17 g by mouth every twenty-four [place]lando rs as needed for constipation potassium phosphate 155 mg / sodium phosphate, dibasic 852 mg / sodium phosphate, monobasic 130 mg oral tablet (2 sources) Start: 04-24-2025 End: 04-25-2025 50 ml sodium chloride 9 mg/ml injection (20 sources) Start: 05-11-2025 End: 05-11-2025 take 50 mL intravenously every hour 50 mL/hr, IntraVENous, Continuous, Starting on Thu05/11/25 at 0950 Start: 04-28-2025 End: 05-01-2025 Start: 04-27-2025 End: 04-28-2026 sodium chloride ([place]) 0.65 % nasal spray Administer 1 spray into each nostril every 2 hours as needed for congestion. 04/28/2025 04/28/2026 Active Start: 04-22-2025 End: 04-23-2025 (2 sources) Start: 04-22-2025 End: 05-01-2025 (4 sources) Start: 04-22-2025 End: 05-01-2025 take 4 mg by mouth every eight hours as needed for nausea and vomiting [Order 1 Start] Name: ondansetron ODT (Zofran-ODT) disintegrating tablet 4 mg Signed Summary: 4 mg, Oral, Every 8 hours PRN, nausea, vomiting, Starting on 04/22/25 at 0136, 1st Line. If inadequate response within 60 minutes, proceed to next-line agent or contact provider if no further options ordered. Patient should allow tablet to dissolve on tongue. Do not remove from blister pack until just before administering. [Order 1 End] [Order 2 Start] Name: ondansetron (Zofran) injection 4 mg Signed Summary: 4 mg, IntraVENous, Every 6 hours PRN, nausea, vomiting, Starting on 04/22/25 at 0136, 1st Line. Give IV if patient is unable to take orally. If inadequate response within 60 minutes, proceed to next-line agent or contact provider if no further options ordered. [Order 2 End] Start: 04-22-2025 End: 05-01-2025 take 650 mg by mouth every six hours as needed for pain and fever [Order 1 Start] Name: acetaminophen (Tylenol) tablet 650 mg Signed Summary: 650 mg, Oral, Every 6 hours PRN, mild pain (1-3), fever, For temp greater than 100.4 F (38 C), Starting on 04/22/25 at 0136, Maximum dose of acetaminophen is 4000 mg from all sources in 24 hours. [Order 1 End] [Order 2 Start] Name: acetaminophen (Tylenol) suppository 650 mg Signed Summary: 650 mg, Rectal, Every 6 hours PRN, fever, For temp greater than 100.4 F (38 C), Starting on 04/22/25 at 0136, Administer if oral route cannot be used. Maximum dose of acetaminophen is 4000 mg from all sources in 24 hours. [Order 2 End] (2 sources) Start: 04-22-2025 End: 04-22-2025 Problems Active Problems Problem Classification Problem Date Documented Date Episodic/Chronic Abdominal hernia (3 sources) Right inguinal hernia ; Translations: [Unilateral inguinal hernia, without obstruction or gangrene, not specified as recurrent] Onset: 06-27-2025 06-27-2025 Episodic Acute cerebrovascular disease (20 sources) Cerebral infarction; Translations: [Cerebral infarction, unspecified] Onset: 04-21-2025 Chronic Acute myocardial infarction (15 sources) Myocardial infarction; Translations: [Non-ST elevation (NSTEMI) myocardial infarction] Onset: 05-11-2025 05-11-2025 Chronic Calculus of urinary tract (19 sources) Kidney stone 04-12-2018 Episodic Cancer of prostate (7 sources) Malignant tumor of prostate; Translations: [Malignant neoplasm of prostate] Onset: 04-05-2025 12-16-2017 Chronic Cancer; other and unspecified primary (20 sources) H/O: neoplasm 10-01-2021 Episodic Cardiac dysrhythmias (20 sources) Paroxysmal atrial fibrillation; Translations: [Paroxysmal atrial fibrillation] 10-02-2020 Chronic Comment on above: Post op afib after C ABG Chronic kidney disease (18 sources) Chronic kidney disease stage 3 10-02-2023 Chronic Congestive heart failure; nonhypertensive (20 sources) Heart failure with normal ejection fraction; Translations: [Diastolic heart failure] 03-13-2023 Chronic Coronary atherosclerosis and other heart disease (20 sources) Coronary arteriosclerosis; Translations: [Coronary atherosclerosis] 04-19-2018 Chronic Comment on above: NSTEMI 04/12/2018 6/2 11/12- X 3 WITH CARNEY TO LAD, SVG TO PDA AND SVG TO OM1 ( Topalidis ) TTE 10/27/2018 EF 55-60% Mild MR No CP. No SOB. Living for [place] next Thursday for 3 months. Will golf in [place]. No lightheadedness. No dizziness. No palpitations. No syncope. Usually plays golf unless weather bad. Energy good. Deficiency and other anemia (20 sources) Anemia; Translations: [Anemia, unspecified] 06-15-2023 Episodic Diabetes mellitus without complication (20 sources) Type 2 diabetes mellitus; Translations: [Type 2 diabetes mellitus without complication] 10-02-2020 Chronic Diseases of white blood cells (19 sources) Leukocytosis 08-05-2019 Chronic Disorders of lipid metabolism (20 sources) Hypercholesterolemia; Translations: [Hyperlipidemia] 09-24-2021 Chronic Comment on above: LDL 53 on 06/01/2018 1 T chol 156, Trig 122, HDL 48, LDL 84 Esophageal disorders (19 sources) Gastroesophageal reflux disease without esophagitis 10-02-2020 Chronic Essential hypertension (20 sources) Hypertensive disorder; Translations: [Essential (primary) hypertension] Onset: 03-20-2023 05-22-2020 Chronic Gout and other crystal arthropathies (19 sources) Gout 05-22-2020 Chronic Other bone disease and musculoskeletal deformities (19 sources) Osteopenia 04-09-2021 Episodic Other connective tissue disease (1 source) Weakness of face muscles; Translations: [Facial weakness] Onset: 04-21-2025 Episodic Other connective tissue disease (1 source) Facial weakness; Translations: [Facial weakness] Onset: 04-21-2025 Episodic Other nervous system disorders (1 source) Aphasia; Translations: [Aphasia] Onset: 04-21-2025 Chronic Other nervous system disorders (1 source) Aphasia; Translations: [Aphasia] Onset: 04-21-2025 Chronic Other nervous system disorders (1 source) Fidel-neglect; 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] Onset: 04-21-2025 Episodic Other nervous system disorders (1 source) Neurologic neglect syndrome; 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] Onset: 04-21-2025 Episodic Other non-epithelial cancer of skin (8 sources) Malignant neoplasm of skin 03-04-2024 Episodic Other nutritional; endocrine; and metabolic disorders (2 sources) Hypocalcemia; Translations: [Hypocalcemia] Chronic Other screening for suspected conditions (not mental disorders or infectious disease) (20 sources) Platelet count below reference range; Translations: [Decreased thyroid stimulating hormone level] 10-02-2020 Episodic Other skin disorders (16 sources) Skin lesion 02-25-2022 Episodic Paralysis (2 sources) Flaccid hemiplegia; 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] Onset: 04-21-2025 Chronic Residual codes; unclassified (19 sources) Sleep apnea 04-12-2018 Chronic Residual codes; unclassified (6 sources) Obstructive sleep apnea syndrome; Translations: [Obstructive sleep apnea (adult) (pediatric)] 06-05-2025 Chronic Residual codes; unclassified (2 sources) Obstructive sleep apnea (adult) (pediatric); Translations: [Obstructive sleep apnea (adult) (pediatric)] Onset: 06-05-2025 Chronic Thyroid disorders (19 sources) Subclinical hyperthyroidism 07-16-2023 Chronic Transient cerebral ischemia (4 sources) Transient cerebral ischemia; Translations: [Transient cerebral ischemic attack, unspecified] 05-09-2025 Chronic Past or Other Problems Problem Classification Problem Date Documented Da te Episodic/Chronic Urinary tract infections (1 source) Acute cystitis with hematuria; Translations: [Acute cystitis with hematuria] Onset: 08-04-2024 Episodic Results Test Name Value Interpretation Reference Range Facility Surgery Visit Reporton 06-27 Surgery Visit Report [facility] [address] [place] [address] OFFICE VISIT Date of Service: 06/27/25 MR#: [id number] Acct: [id number] Name: TOM BOOTH Rep #: [id number] : 1945 Provider: Dr. Jacob smyth MD Age/Sex: 80/M Location: [facility] Status: Signed Intake Vital Signs 06/27/25 13:16 Height 5 ft 11 in Weight: 152 lb BMI 21.2 BP 147/79 H Blood Pressure Location Rt brachial Position Sitting Respiration 18 Pulse 78 Pulse Source Monitor Temp 98.0 F Temp Source Temporal Pulse Oximetry (%) 97 Oxygen Delivery Method room air Intake Visit Reasons: Hernia Chief Complaint: right inguinal hernia Accompanied by: Is patient in pain?: No Allergies No Known Allergies Allergy (Verified 06/27/25 13:17) Have you fallen in the past year?: No PFSH Medical History (Updated 06/27/25 @ 13:15 by Nargis Wilde LPN) Right inguinal hernia Surgical History (Updated 06/27/25 @ 13:15 by Nargis Wilde LPN) History of open heart surgery Hx of radical prostatectomy Social History (Updated 06/27/25 @ 13:16 by Nargis Wilde LPN) Smoking Status: Former smoker alcohol intake: current alcohol intake frequency: holidays/special occasions only substance use type: does not use HPI HPI HPI: Patient is a 80-year-old male here with right inguinal hernia. The patient had a recent stroke in March. The patient is having hemiplegia on the right side and he is working on rehab currently. He is not on any blood thinners. ROS General General: No weight change, appetite, fatigue, colon cancer, breast cancer or weakness HEENT HEENT: No difficulty swallowing, eye injury, eye surgery, swollen glands or hoarseness Endo Endocrine: Yes diabetes mellitus; No thyroid disease, thyroid cancer, Hair loss, heat intolerance or cold intolerance Skin Skin: No rash or changing moles Musc Musculoskeletal: No back problems, arthritis, rheumatoid arthritis, gout or joint pain Cardio Cardiovascular: No murmur, pacemaker, heart disease, atrial fibrillation, high blood pressure, heart attack, heart stent, palpitations, shortness of breath with exertion or chest pain Psych Psychiatric: No depression, anxiety or hearing voices Resp Respiratory: No shortness of breath, Yes sleep apnea, No cough, No COPD, No asthma, No emphysema and No wheezing Gastro Gastrointestinal: No abdominal pain, No nausea or vomiting, No diarrhea, No constipation, No blood in stool, No acid reflux, No hemorrhoids, No ulcers, No gallbladder problem and No black,tarry stools Josue Hematologic: No blood thinners, No blood disorders, No bleeding, No anemia and No blood clots Neuro Neurologic: Yes as per HPI (hx stroke 03/2025) and No weakness Exam Const General: cooperative Orientation: alert and oriented x3 HENMT Head: normal to inspection Neck Neck: normal visual inspection and full ROM Chest Chest palpation inspection: normal inspection of the chest Resp Effort Inspection: normal respiratory effort Auscultation: clear to auscultation bilaterally Cardio Rate: regular rate Rhythm: regular rhythm GI Inspection: non-distended Palpation: soft and nontender Skin General: no rashes or lesions noted Neuro General: patient alert and patient oriented x3 Extrem General: full ROM Psych Appearance: grossly normal Mental Status: mental status grossly normal Assessment and Plan Assessment and Plan (1) Right inguinal hernia: Status: Acute Plan: The patient has a reducible right inguinal hernia. I discussed repair with him in detail. I discussed the risks of the procedure including but not limited to bleeding, infection, injury to other organ such as the blood supply of the testicle, bowel, chronic groin pain, mesh infection. Patient understands the risks [employer] proceed. He would like to push repair out a month so he can finish rehab for his stroke. Jacob Mcallister MD Pager: [facility] [address] [place] [address], [address] [place] [address] Office: Medications: Discontinued hydrocodone-acetamin ophen 5-325 mg Discontinued Reason: Pt no longer taking 1 ea PO Q4H PRN 5 days PRN 10 tabs 0RF Pain C61 - Malignant neoplasm of prostate ciprofloxacin HCl Discontinued Reason: Pt no longer taking 500 mg PO BID 20 tabs 0RF Coding Level of Care Code Off vis,new,level 3 Diagnoses Right inguinal hernia K40.90 Clinical Quality Measures Falls Risk Screening/Assistive Devices Have you fallen in the past year?: No 06/27/25 1327 Date Jacob Mcallister MD Cosigner Signature: Date (more content not included)... Normal [facility] APOBon 06-22-2025 Apolipoprotein B [Mass/Vol] 21 mg/dL Normal <90 [facility] Comment on above: Result Comment: Maira rable < 90 Borderline High 90 - 99 High 100 - 130 Very High >130 ASCVD RISK THERAPEUTIC TARGET CATEGORY APO B (mg/dL) Very High Risk <80 (if extreme risk <70) High Risk <90 Moderate Risk <90 Performed At: [address] [id number] [place] MD Ph:[phone] Performed By: #### A PTT, TROPHS, ADIFF, PRO, ANEU, MORPH, GFR, MDW, BMP, CBC #### [address] [place], [place] [address] .Auto Diffon 06-20-2025 Basophil, Absolute 0.1 10 3/mcL Normal 0.0-0.3 [facility] Comment on above: Performed By: #### A PTT, TROPHS, ADIFF, PRO, ANEU, MORPH, GFR, MDW, BMP, CBC #### [address] [place], [place] [address] Basophils/100 WBC (Bld) 0.9 % Normal 0.0-2.5 [facility] Comment on above: Performed By: #### A PTT, TROPHS, ADIFF, PRO, ANEU, MORPH, GFR, MDW, BMP, CBC #### [address] [address] Eosinophil, Absolute 0.3 10 3/mcL Normal 0.0-0.7 [facility] Comment on above: Performed By: #### A PTT, TROPHS, ADIFF, PRO, ANEU, MORPH, GFR, MDW, BMP, CBC #### [address] [address] Eosinophils/100 WBC (Bld) 3.4 % Normal 0.0-6.0 [facility] Comment on above: Performed By: #### A PTT, TROPHS, ADIFF, PRO, ANEU, MORPH, GFR, MDW, BMP, CBC #### [address] [address] Lymphocyte, Absolute 1.2 10 3/mcL Normal 0.9-4.3 [facility] Comment on above: Performed By: #### A PTT, TROPHS, ADIFF, PRO, ANEU, MORPH, GFR, MDW, BMP, CBC #### [address] [address] Lymphocytes/100 WBC (Bld) 15.4 % Low 20.0-40.0 [facility] Comment on above: Performed By: #### A PTT, TROPHS, ADIFF, PRO, ANEU, MORPH, GFR, MDW, BMP, CBC #### [address] [address] Monocyte, Absolute 0.9 10 3/mcL Normal 0.1-1.4 [facility] Comment on above: Performed By: #### A PTT, TROPHS, ADIFF, PRO, ANEU, MORPH, GFR, MDW, BMP, CBC #### [address] [address] Monocytes/100 WBC (Bld) 11.0 % Normal 2.0-13.0 [facility] Comment on above: Performed By: #### A PTT, TROPHS, ADIFF, PRO, ANEU, MORPH, GFR, MDW, BMP, CBC #### [address] [place], [place] [address] Neutrophils/100 WBC (Bld) 69.3 % Normal 50.0-75.0 [facility] Comment on above: Performed By: #### A PTT, TROPHS, ADIFF, PRO, ANEU, MORPH, GFR, MDW, BMP, CBC #### [address] [place], [place] [address] .GFRon 06-20-2025 Estimated Glomerular Filtration Rate 53 ml/min/1.73sqm Normal [facility] Comment on above: Result Comment: Stages of Chronic Kidney Disease (CKD) Stage Description eGFR(ml/min/1.73 sq.m.) CKD 1 Normal kidney function or >=90 normal kindney function with possible kidney damage (ex. Proteinuria) CKD 2 Kidney damage with mild loss 60-89 of kidney function CKD 3a Mild to moderate loss of kidney 45-59 function CKD 3b Moderate to severe loss of 30-44 of kindey function CKD 4 Severe loss of kidney function 15-29 CKD 5 Kidney failure <15 Note: (go live 2024) the eGFR calculation was updated to the 2020 CKD-EPI creatinine equation without a race factor to calculate the eGFR results. Performed By: #### A PTT, TROPHS, ADIFF, PRO, ANEU, MORPH, GFR, MDW, BMP, CBC #### [address] [address] .NEUABSon 06-20-2025 Neutrophil, Absolute 5.4 10 3/mcL Normal 2.3-8.1 [facility] Comment on above: Performed By: #### A PTT, TROPHS, ADIFF, PRO, ANEU, MORPH, GFR, MDW, BMP, CBC #### [address] [place], [place] [address] CBCon 06-20-2025 Erythrocyte distribution width (RBC) [Ratio] 15.5 % Normal 11.5-15.5 [facility] Comment on above: Performed By: #### A PTT, TROPHS, ADIFF, PRO, ANEU, MORPH, GFR, MDW, BMP, CBC #### [address] [address] Hematocrit (Bld) [Volume fraction] 36.0 % Low 40.0-52.0 [facility] Comment on above: Performed By: #### A PTT, TROPHS, ADIFF, PRO, ANEU, MORPH, GFR, MDW, BMP, CBC #### [address] [address] Hgb 12.0 G/dL Low 13.0-17.5 [facility] Comment on above: Performed By: #### A PTT, TROPHS, ADIFF, PRO, ANEU, MORPH, GFR, MDW, BMP, CBC #### [address] [address] MCH (RBC) [Entitic mass] 29.8 pg Normal 27.0-33.0 [facility] Comment on above: Performed By: #### A PTT, TROPHS, ADIFF, PRO, ANEU, MORPH, GFR, MDW, BMP, CBC #### [address] [address] MCHC 33.5 G/dL Normal 32.0-36.0 [facility] Comment on above: Performed By: #### A PTT, TROPHS, ADIFF, PRO, ANEU, MORPH, GFR, MDW, BMP, CBC #### [address] [address] MCV (RBC) [Entitic vol] 88.9 fL Normal 81.0-100.0 [facility] Comment on above: Performed By: #### A PTT, TROPHS, ADIFF, PRO, ANEU, MORPH, GFR, MDW, BMP, CBC #### [address] [address] Platelet 259 10 3/mcL Normal 150-450 [facility] Comment on above: Performed By: #### A PTT, TROPHS, ADIFF, PRO, ANEU, MORPH, GFR, MDW, BMP, CBC #### [address] [address] Platelet mean volume (Bld) [Entitic vol] 7.5 fL Normal 6.4-10.5 [facility] Comment on above: Performed By: #### A PTT, TROPHS, ADIFF, PRO, ANEU, MORPH, GFR, MDW, BMP, CBC #### [address] [address] RBC 4.05 10 6/mcL Low 4.50-6.00 [facility] Comment on above: Performed By: #### A PTT, TROPHS, ADIFF, PRO, ANEU, MORPH, GFR, MDW, BMP, CBC #### [address] [address] WBC 7.8 10 3/mcL Normal 4.5-10.8 [facility] Comment on above: Performed By: #### A PTT, TROPHS, ADIFF, PRO, ANEU, MORPH, GFR, MDW, BMP, CBC #### [address] [address] CMPon 06-20-2025 Albumin Level 3.5 G/dL Normal 3.4-4.8 [facility] Comment on above: Performed By: #### A PTT, TROPHS, ADIFF, PRO, ANEU, MORPH, GFR, MDW, BMP, CBC #### [address] [address] Albumin/Globulin [Mass ratio] 1.0 {ratio} Low 1.1-2.5 [facility] Comment on above: Performed By: #### A PTT, TROPHS, ADIFF, PRO, ANEU, MORPH, GFR, MDW, BMP, CBC #### [address] [address] ALP [Catalytic activity/Vol] 71 U/L Normal 40-135 [facility] Comment on above: Performed By: #### A PTT, TROPHS, ADIFF, PRO, ANEU, MORPH, GFR, MDW, BMP, CBC #### [address] [address] ALT [Catalytic activity/Vol] 31 U/L Normal 16-63 [facility] Comment on above: Performed By: #### A PTT, TROPHS, ADIFF, PRO, ANEU, MORPH, GFR, MDW, BMP, CBC #### [address] [address] AST [Catalytic activity/Vol] 25 U/L Normal 10-40 [facility] Comment on above: Performed By: #### A PTT, TROPHS, ADIFF, PRO, ANEU, MORPH, GFR, MDW, BMP, CBC #### [address] [address] Bili Total 0.4 mg/dL Normal 0.2-1.0 [facility] Comment on above: Result Comment: Use of this assay is not recommended for patients undergoing treatment with eltrombopag due to the potential for falsely elevated results. Performed By: #### A PTT, TROPHS, ADIFF, PRO, ANEU, MORPH, GFR, MDW, BMP, CBC #### [address] [address] BUN/Creatinine Ratio 22 ratio Normal 7-27 [facility] Comment on above: Performed By: #### A PTT, TROPHS, ADIFF, PRO, ANEU, MORPH, GFR, MDW, BMP, CBC #### [address] [address] Calcium [Mass/Vol] 9.4 mg/dL Normal 8.4-10.2 [facility] Comment on above: Performed By: #### A PTT, TROPHS, ADIFF, PRO, ANEU, MORPH, GFR, MDW, BMP, CBC #### [address] [address] Chloride [Moles/Vol] 105 mmol/L Normal 98-107 [facility] Comment on above: Performed By: #### A PTT, TROPHS, ADIFF, PRO, ANEU, MORPH, GFR, MDW, BMP, CBC #### [address] [address] CO2 [Moles/Vol] 29 mmol/L Normal 23-31 [facility] Comment on above: Performed By: #### A PTT, TROPHS, ADIFF, PRO, ANEU, MORPH, GFR, MDW, BMP, CBC #### [address] [address] Creatinine [Mass/Vol] 1.35 mg/dL High 0.67-1.17 [facility] Comment on above: Performed By: #### A PTT, TROPHS, ADIFF, PRO, ANEU, MORPH, GFR, MDW, BMP, CBC #### [address] [address] Electrolyte Balance 7.0 mEq/L Normal 4.0-15.0 [facility] Comment on above: Performed By: #### A PTT, TROPHS, ADIFF, PRO, ANEU, MORPH, GFR, MDW, BMP, CBC #### [address] [address] Globulin 3.5 G/dL Normal 2.7-4.4 [facility] Comment on above: Performed By: #### A PTT, TROPHS, ADIFF, PRO, ANEU, MORPH, GFR, MDW, BMP, CBC #### [address] [address] Glucose [Mass/Vol] 139 mg/dL High 83-110 [facility] Comment on above: Performed By: #### A PTT, TROPHS, ADIFF, PRO, ANEU, MORPH, GFR, MDW, BMP, CBC #### [address] [address] Potassium [Moles/Vol] 4.3 mmol/L Normal 3.5-5.1 [facility] Comment on above: Performed By: #### A PTT, TROPHS, ADIFF, PRO, ANEU, MORPH, GFR, MDW, BMP, CBC #### [address] [address] Sodium [Moles/Vol] 141 mmol/L Normal 136-145 [facility] Comment on above: Performed By: #### A PTT, TROPHS, ADIFF, PRO, ANEU, MORPH, GFR, MDW, BMP, CBC #### [address] [place], [place] [address] Total Protein 7.0 G/dL Normal 6.4-8.2 [facility] Comment on above: Performed By: #### A PTT, TROPHS, ADIFF, PRO, ANEU, MORPH, GFR, MDW, BMP, CBC #### [address] [place], [place] [address] Urea nitrogen [Mass/Vol] 30 mg/dL High 7-18 [facility] Comment on above: Performed By: #### A PTT, TROPHS, ADIFF, PRO, ANEU, MORPH, GFR, MDW, BMP, CBC #### [address] [place], [place] [address] LABORATORYOrdered By: SYSTEM SYSTEM on 06-20-2025 Albumin BCP dye [Mass/Vol] 3.5 G/dL Normal 3.4 - 4.8 G/dL AO ADM SS Albumin/Globulin [Mass ratio] 1.0 {ratio} Low 1.1 - 2.5 ratio AO ADM SS ALP [Catalytic activity/Vol] 71 U/L Normal 40 - 135 U/L AO ADM SS ALT With P-5'-P [Catalytic activity/Vol] 31 U/L Normal 16 - 63 U/L AO ADM SS AST With P-5'-P [Catalytic activity/Vol] 25 U/L Normal 10 - 40 U/L AO ADM SS Basophils (Bld) [#/Vol] 0.1 103/mcL Normal 0.0 - 0.3 10^3/mcL AO Workflow SS Basophils/100 WBC (Bld) 0.9 % Normal 0.0 - 2.5 % AO Workflow SS Bilirubin [Mass/Vol] 0.4 mg/dL Normal 0.2 - 1 .0 mg/dL AO ADM SS Comment on above: Interpretive Data: U se of this assay is not recommended for patients undergoing treatment with eltrombopag due to the potential for falsely elevated results. Calcium [Mass/Vol] 9.4 mg/dL Normal 8.4 - 10. 2 mg/dL AO ADM SS Chloride [Moles/Vol] 105 mmol/L Normal 98 - 10 7 mmol/L AO ADM SS CO2 [Moles/Vol] 29 mmol/L Normal 23 - 31 mmol/L AO ADM SS Creatinine [Mass/Vol] 1.35 mg/dL High 0.67 - 1.17 mg/dL AO ADM SS Electrolyte Balance 7.0 mEq/L Normal 4.0 - 15 .0 mEq/L AO ADM SS Eosinophil, Absolute 0.3 103/mcL Normal 0.0 - 0 .7 10^3/mcL AO Workflow SS Eosinophils/100 WBC (Bld) 3.4 % Normal 0.0 - 6.0 % AO Workflow SS Erythrocyte distribution width (RBC) [Ratio] 15.5 % Normal 11.5 - 15.5 % AO Workflow SS Estimated Glomerular Filtration Rate 53 ml/min/1.73sqm Invalid Interpretation Code AO Chemistry S Comment on above: Interpretive Data: Stages of Chronic Kidney Disease (CKD) Stage Description eGFR(ml/min/1.73 sq.m.) CKD 1 Normal kidney function or >=90 normal kindney function with possible kidney damage (ex. Proteinuria) CKD 2 Kidney damage with mild loss 60-89 of kidney function CKD 3a Mild to moderate loss of kidney 45-59 function CKD 3b Moderate to severe loss of 30-44 of kindey function CKD 4 Severe loss of kidney function 15-29 CKD 5 Kidney failure <15 Note: (go live 2024) the eGFR calculation was updated to the 2020 CKD-EPI creatinine equation without a race factor to calculate the eGFR results. Globulin 3.5 G/dL Normal 2.7 - 4.4 G/dL AO ADM SS Glucose [Mass/Vol] 139 mg/dL High 83 - 110 mg/dL AO ADM SS Hematocrit (Bld) [Volume fraction] 36.0 % Low 40.0 - 52.0 % AO Workflow SS Hemoglobin (Bld) [Mass/Vol] 12.0 G/dL Low 13.0 - 17.5 G/dL AO Workflow SS Lymphocytes (Bld) [#/Vol] 1.2 103/mcL Normal 0.9 - 4.3 10^3/mcL AO Workflow SS Lymphocytes/100 WBC (Bld) 15.4 % Low 20.0 - 40.0 % AO Workflow SS MCH (RBC) [Entitic mass] 29.8 pg Normal 27.0 - 33.0 pg AO Workflow SS MCHC 33.5 G/dL Normal 32.0 - 36.0 G/dL AO Workflow SS MCV (RBC) [Entitic vol] 88.9 fL Normal 81.0 - 100.0 fL AO Workflow SS Monocytes (Bld) [#/Vol] 0.9 103/mcL Normal 0.1 - 1.4 10^3/mcL AO Workflow SS Monocytes/100 WBC (Bld) 11.0 % Normal 2.0 - 13.0 % AO Workflow SS Neutrophils (Bld) [#/Vol] 5.4 103/mcL Normal 2.3 - 8.1 10^3/mcL AO Workflow SS Neutrophils/100 WBC (Bld) 69.3 % Normal 50.0 - 75.0 % AO Workflow SS Platelet mean volume (Bld) [Entitic vol] 7.5 fL Normal 6.4 - 10.5 fL AO Workflow SS Platelets (Bld) [#/Vol] 259 103/mcL Normal 150 - 450 10^3/mcL AO Workflow SS Potassium [Moles/Vol] 4.3 mmol/L Normal 3.5 - 5.1 mmol/L AO ADM SS Protein [Mass/Vol] 7.0 G/dL Normal 6.4 - 8.2 G/dL AO ADM SS RBC (Bld) [#/Vol] 4.05 106/mcL Low 4.50 - 6.0 0 10^6/mcL AO Workflow SS Sodium [Moles/Vol] 141 mmol/L Normal 136 - 145 mmol/L AO ADM SS Urea nitrogen [Mass/Vol] 30 mg/dL High 7 - 18 mg/dL AO ADM SS Urea nitrogen/Creatinine [Mass ratio] 22 ratio Normal 7 - 27 ratio AO ADM SS WBC (Bld) [#/Vol] 7.8 103/mcL Normal 4.5 - 10.8 10^3/mcL AO Workflow SS 36on 06-06-2025 36 Order faxed over [phone] [facility] 36 Spoke with Maritza; letter written with my recommendation for patient to have PT twice weekly for next 6 weeks to rehab right sided weakness after his stroke. Normal [facility] 36 Normal [facility] 37on 06-05-2025 37 Call the sleep lab to schedule home sleep study - [phone] Normal [facility] Progress Noteon 06-05-2025 Progress Note Normal [facility] .Auto Diffon 05-31-2025 Basophil, Absolute 0.0 10 3/mcL Normal 0.0-0.3 [facility] Comment on above: Performed By: #### A PTT, TROPHS, ADIFF, PRO, ANEU, MORPH, GFR, MDW, BMP, CBC #### [address] [address] Basophils/100 WBC (Bld) 0.6 % Normal 0.0-2.5 [facility] Comment on above: Performed By: #### A PTT, TROPHS, ADIFF, PRO, ANEU, MORPH, GFR, MDW, BMP, CBC #### [address] [address] Eosinophil, Absolute 0.1 10 3/mcL Normal 0.0-0.7 [facility] Comment on above: Performed By: #### A PTT, TROPHS, ADIFF, PRO, ANEU, MORPH, GFR, MDW, BMP, CBC #### [address] [address] Eosinophils/100 WBC (Bld) 2.0 % Normal 0.0-6.0 [facility] Comment on above: Performed By: #### A PTT, TROPHS, ADIFF, PRO, ANEU, MORPH, GFR, MDW, BMP, CBC #### [address] [address] Lymphocyte, Absolute 0.9 10 3/mcL Normal 0.9-4.3 [facility] Comment on above: Performed By: #### A PTT, TROPHS, ADIFF, PRO, ANEU, MORPH, GFR, MDW, BMP, CBC #### [address] [address] Lymphocytes/100 WBC (Bld) 12.6 % Low 20.0-40.0 [facility] Comment on above: Performed By: #### A PTT, TROPHS, ADIFF, PRO, ANEU, MORPH, GFR, MDW, BMP, CBC #### [address] [address] Monocyte, Absolute 0.9 10 3/mcL Normal 0.1-1.4 [facility] Comment on above: Performed By: #### A PTT, TROPHS, ADIFF, PRO, ANEU, MORPH, GFR, MDW, BMP, CBC #### [address] [address] Monocytes/100 WBC (Bld) 12.5 % Normal 2.0-13.0 [facility] Comment on above: Performed By: #### A PTT, TROPHS, ADIFF, PRO, ANEU, MORPH, GFR, MDW, BMP, CBC #### [address] [address] Neutrophils/100 WBC (Bld) 72.3 % Normal 50.0-75.0 [facility] Comment on above: Performed By: #### A PTT, TROPHS, ADIFF, PRO, ANEU, MORPH, GFR, MDW, BMP, CBC #### [address] [address] .GFRon 05-31-2025 Estimated Glomerular Filtration Rate 54 ml/min/1.73sqm Normal [facility] Comment on above: Result Comment: Stages of Chronic Kidney Disease (CKD) Stage Description eGFR(ml/min/1.73 sq.m.) CKD 1 Normal kidney function or >=90 normal kindney function with possible kidney damage (ex. Proteinuria) CKD 2 Kidney damage with mild loss 60-89 of kidney function CKD 3a Mild to moderate loss of kidney 45-59 function CKD 3b Moderate to severe loss of 30-44 of kindey function CKD 4 Severe loss of kidney function 15-29 CKD 5 Kidney failure <15 Note: (go live 2024) the eGFR calculation was updated to the 2020 CKD-EPI creatinine equation without a race factor to calculate the eGFR results. Performed By: #### A PTT, TROPHS, ADIFF, PRO, ANEU, MORPH, GFR, MDW, BMP, CBC #### [address] [address] .NEUABSon 05-31-2025 Neutrophil, Absolute 5.4 10 3/mcL Normal 2.3-8.1 [facility] Comment on above: Performed By: #### A PTT, TROPHS, ADIFF, PRO, ANEU, MORPH, GFR, MDW, BMP, CBC #### [address] [address] CBCon 05-31-2025 Erythrocyte distribution width (RBC) [Ratio] 16.6 % High 11.5-15.5 [facility] Comment on above: Performed By: #### A PTT, TROPHS, ADIFF, PRO, ANEU, MORPH, GFR, MDW, BMP, CBC #### [place] [address] Hematocrit (Bld) [Volume fraction] 37.2 % Low 40.0-52.0 [facility] Comment on above: Performed By: #### A PTT, TROPHS, ADIFF, PRO, ANEU, MORPH, GFR, MDW, BMP, CBC #### [place] [address] Hgb 12.2 G/dL Low 13.0-17.5 [facility] Comment on above: Performed By: #### A PTT, TROPHS, ADIFF, PRO, ANEU, MORPH, GFR, MDW, BMP, CBC #### [address] [address] MCH (RBC) [Entitic mass] 29.7 pg Normal 27.0-33.0 [facility] Comment on above: Performed By: #### A PTT, TROPHS, ADIFF, PRO, ANEU, MORPH, GFR, MDW, BMP, CBC #### [address] [address] MCHC 32.8 G/dL Normal 32.0-36.0 [facility] Comment on above: Performed By: #### A PTT, TROPHS, ADIFF, PRO, ANEU, MORPH, GFR, MDW, BMP, CBC #### [place] [id number] MCV (RBC) [Entitic vol] 90.6 fL Normal 81.0-100.0 [facility] Comment on above: Performed By: #### A PTT, TROPHS, ADIFF, PRO, ANEU, MORPH, GFR, MDW, BMP, CBC #### [address] [address] Platelet 306 10 3/mcL Normal 150-450 [facility] Comment on above: Performed By: #### A PTT, TROPHS, ADIFF, PRO, ANEU, MORPH, GFR, MDW, BMP, CBC #### [address] [address] Platelet mean volume (Bld) [Entitic vol] 7.3 fL Normal 6.4-10.5 [facility] Comment on above: Performed By: #### A PTT, TROPHS, ADIFF, PRO, ANEU, MORPH, GFR, MDW, BMP, CBC #### [address] [address] RBC 4.10 10 6/mcL Low 4.50-6.00 [facility] Comment on above: Performed By: #### A PTT, TROPHS, ADIFF, PRO, ANEU, MORPH, GFR, MDW, BMP, CBC #### [address] [address] WBC 7.5 10 3/mcL Normal 4.5-10.8 [facility] Comment on above: Performed By: #### A PTT, TROPHS, ADIFF, PRO, ANEU, MORPH, GFR, MDW, BMP, CBC #### [address] [address] CMPon 05-31-2025 Albumin Level 3.4 G/dL Normal 3.4-4.8 [facility] Comment on above: Performed By: #### A PTT, TROPHS, ADIFF, PRO, ANEU, MORPH, GFR, MDW, BMP, CBC #### [address] [address] Albumin/Globulin [Mass ratio] 0.9 {ratio} Low 1.1-2.5 [facility] Comment on above: Performed By: #### A PTT, TROPHS, ADIFF, PRO, ANEU, MORPH, GFR, MDW, BMP, CBC #### [address] [address] ALP [Catalytic activity/Vol] 70 U/L Normal 40-135 [facility] Comment on above: Performed By: #### A PTT, TROPHS, ADIFF, PRO, ANEU, MORPH, GFR, MDW, BMP, CBC #### [address] [address] ALT [Catalytic activity/Vol] 20 U/L Normal 16-63 [facility] Comment on above: Performed By: #### A PTT, TROPHS, ADIFF, PRO, ANEU, MORPH, GFR, MDW, BMP, CBC #### [address] [address] AST [Catalytic activity/Vol] 22 U/L Normal 10-40 [facility] Comment on above: Performed By: #### A PTT, TROPHS, ADIFF, PRO, ANEU, MORPH, GFR, MDW, BMP, CBC #### [address] [address] Bili Total 0.4 mg/dL Normal 0.2-1.0 [facility] Comment on above: Result Comment: Use of this assay is not recommended for patients undergoing treatment with eltrombopag due to the potential for falsely elevated results. Performed By: #### A PTT, TROPHS, ADIFF, PRO, ANEU, MORPH, GFR, MDW, BMP, CBC #### [address] [address] BUN/Creatinine Ratio 21 ratio Normal 7-27 [facility] Comment on above: Performed By: #### A PTT, TROPHS, ADIFF, PRO, ANEU, MORPH, GFR, MDW, BMP, CBC #### [address] [address] Calcium [Mass/Vol] 10.1 mg/dL Normal 8.4-10.2 [facility] Comment on above: Performed By: #### A PTT, TROPHS, ADIFF, PRO, ANEU, MORPH, GFR, MDW, BMP, CBC #### [address] [address] Chloride [Moles/Vol] 103 mmol/L Normal 98-107 [facility] Comment on above: Performed By: #### A PTT, TROPHS, ADIFF, PRO, ANEU, MORPH, GFR, MDW, BMP, CBC #### [address] [address] CO2 [Moles/Vol] 30 mmol/L Normal 23-31 [facility] Comment on above: Performed By: #### A PTT, TROPHS, ADIFF, PRO, ANEU, MORPH, GFR, MDW, BMP, CBC #### [address] [address] Creatinine [Mass/Vol] 1.35 mg/dL High 0.67-1.17 [facility] Comment on above: Performed By: #### A PTT, TROPHS, ADIFF, PRO, ANEU, MORPH, GFR, MDW, BMP, CBC #### [address] [address] Electrolyte Balance 7.0 mEq/L Normal 4.0-15.0 [facility] Comment on above: Performed By: #### A PTT, TROPHS, ADIFF, PRO, ANEU, MORPH, GFR, MDW, BMP, CBC #### [address] [address] Globulin 3.7 G/dL Normal 2.7-4.4 [facility] Comment on above: Performed By: #### A PTT, TROPHS, ADIFF, PRO, ANEU, MORPH, GFR, MDW, BMP, CBC #### [address] [address] Glucose [Mass/Vol] 215 mg/dL High 83-110 [facility] Comment on above: Performed By: #### A PTT, TROPHS, ADIFF, PRO, ANEU, MORPH, GFR, MDW, BMP, CBC #### [address] [address] Potassium [Moles/Vol] 5.5 mmol/L High 3.5-5.1 [facility] Comment on above: Performed By: #### A PTT, TROPHS, ADIFF, PRO, ANEU, MORPH, GFR, MDW, BMP, CBC #### [address] [address] Sodium [Moles/Vol] 140 mmol/L Normal 136-145 [facility] Comment on above: Performed By: #### A PTT, TROPHS, ADIFF, PRO, ANEU, MORPH, GFR, MDW, BMP, CBC #### [address] [address] Total Protein 7.1 G/dL Normal 6.4-8.2 [facility] Comment on above: Performed By: #### A PTT, TROPHS, ADIFF, PRO, ANEU, MORPH, GFR, MDW, BMP, CBC #### [address] [address] Urea nitrogen [Mass/Vol] 29 mg/dL High 7-18 [facility] Comment on above: Performed By: #### A PTT, TROPHS, ADIFF, PRO, ANEU, MORPH, GFR, MDW, BMP, CBC #### [address] [address] LABORATORYOrdered By: SYSTEM SYSTEM on 05-31-2025 Albumin BCP dye [Mass/Vol] 3.4 G/dL Normal 3.4 - 4.8 G/dL AO ADM SS Albumin/Globulin [Mass ratio] 0.9 {ratio} Low 1.1 - 2.5 ratio AO ADM SS ALP [Catalytic activity/Vol] 70 U/L Normal 40 - 135 U/L AO ADM SS ALT With P-5'-P [Catalytic activity/Vol] 20 U/L Normal 16 - 63 U/L AO ADM SS AST With P-5'-P [Catalytic activity/Vol] 22 U/L Normal 10 - 40 U/L AO ADM SS Basophils (Bld) [#/Vol] 0.0 103/mcL Normal 0.0 - 0.3 10^3/mcL AO Workflow SS Basophils/100 WBC (Bld) 0.6 % Normal 0.0 - 2.5 % AO Workflow SS Bilirubin [Mass/Vol] 0.4 mg/dL Normal 0.2 - 1 .0 mg/dL AO ADM SS Comment on above: Interpretive Data: U se of this assay is not recommended for patients undergoing treatment with eltrombopag due to the potential for falsely elevated results. Calcium [Mass/Vol] 10.1 mg/dL Normal 8.4 - 10. 2 mg/dL AO ADM SS Chloride [Moles/Vol] 103 mmol/L Normal 98 - 10 7 mmol/L AO ADM SS CO2 [Moles/Vol] 30 mmol/L Normal 23 - 31 mmol/L AO ADM SS Creatinine [Mass/Vol] 1.35 mg/dL High 0.67 - 1.17 mg/dL AO ADM SS Electrolyte Balance 7.0 mEq/L Normal 4.0 - 15 .0 mEq/L AO ADM SS Eosinophil, Absolute 0.1 103/mcL Normal 0.0 - 0 .7 10^3/mcL AO Workflow SS Eosinophils/100 WBC (Bld) 2.0 % Normal 0.0 - 6.0 % AO Workflow SS Erythrocyte distribution width (RBC) [Ratio] 16.6 % High 11.5 - 15.5 % AO Workflow SS Estimated Glomerular Filtration Rate 54 ml/min/1.73sqm Invalid Interpretation Code AO Chemistry S Comment on above: Interpretive Data: Stages of Chronic Kidney Disease (CKD) Stage Description eGFR(ml/min/1.73 sq.m.) CKD 1 Normal kidney function or >=90 normal kindney function with possible kidney damage (ex. Proteinuria) CKD 2 Kidney damage with mild loss 60-89 of kidney function CKD 3a Mild to moderate loss of kidney 45-59 function CKD 3b Moderate to severe loss of 30-44 of kindey function CKD 4 Severe loss of kidney function 15-29 CKD 5 Kidney failure <15 Note: (go live 2024) the eGFR calculation was updated to the 2020 CKD-EPI creatinine equation without a race factor to calculate the eGFR results. Globulin 3.7 G/dL Normal 2.7 - 4.4 G/dL AO ADM SS Glucose [Mass/Vol] 215 mg/dL High 83 - 110 mg/dL AO ADM SS Hematocrit (Bld) [Volume fraction] 37.2 % Low 40.0 - 52.0 % AO Workflow SS Hemoglobin (Bld) [Mass/Vol] 12.2 G/dL Low 13.0 - 17.5 G/dL AO Workflow SS Lymphocytes (Bld) [#/Vol] 0.9 103/mcL Normal 0.9 - 4.3 10^3/mcL AO Workflow SS Lymphocytes/100 WBC (Bld) 12.6 % Low 20.0 - 40.0 % AO Workflow SS MCH (RBC) [Entitic mass] 29.7 pg Normal 27.0 - 33.0 pg AO Workflow SS MCHC 32.8 G/dL Normal 32.0 - 36.0 G/dL AO Workflow SS MCV (RBC) [Entitic vol] 90.6 fL Normal 81.0 - 100.0 fL AO Workflow SS Monocytes (Bld) [#/Vol] 0.9 103/mcL Normal 0.1 - 1.4 10^3/mcL AO Workflow SS Monocytes/100 WBC (Bld) 12.5 % Normal 2.0 - 13.0 % AO Workflow SS Neutrophils (Bld) [#/Vol] 5.4 103/mcL Normal 2.3 - 8.1 10^3/mcL AO Workflow SS Neutrophils/100 WBC (Bld) 72.3 % Normal 50.0 - 75.0 % AO Workflow SS Parathyrin.intact [Mass/Vol] 31.6 pg/mL Normal 18.5 - 88.0 pg/mL AH ADM SS Platelet mean volume (Bld) [Entitic vol] 7.3 fL Normal 6.4 - 10.5 fL AO Workflow SS Platelets (Bld) [#/Vol] 306 103/mcL Normal 150 - 450 10^3/mcL AO Workflow SS Potassium [Moles/Vol] 5.5 mmol/L High 3.5 - 5.1 mmol/L AO ADM SS Protein [Mass/Vol] 7.1 G/dL Normal 6.4 - 8.2 G/dL AO ADM SS RBC (Bld) [#/Vol] 4.10 106/mcL Low 4.50 - 6.0 0 10^6/mcL AO Workflow SS Sodium [Moles/Vol] 140 mmol/L Normal 136 - 145 mmol/L AO ADM SS Urea nitrogen [Mass/Vol] 29 mg/dL High 7 - 18 mg/dL AO ADM SS Urea nitrogen/Creatinine [Mass ratio] 21 ratio Normal 7 - 27 ratio AO ADM SS WBC (Bld) [#/Vol] 7.5 103/mcL Normal 4.5 - 10.8 10^3/mcL AO Workflow SS PTHon 05-31-2025 PTH, Intact 31.6 pg/mL Normal 18.5-88.0 [facility] Comment on above: Performed By: #### A PTT, TROPHS, ADIFF, PRO, ANEU, MORPH, GFR, MDW, BMP, CBC #### [facility] [address] [place], [place] [address] 36on 05-15-2025 36 Spoke with and let her know she does not need appointment with us, she can follow up with cardiology at [facility]. Normal [facility] 36 Normal [facility] 30on 05-12-2025 30 [facility] [id number] 05-12-2025 [id number] [facility] 29 [facility] Returning to Facility [facility] [id number] [facility] [id number] [facility] [id number] [facility] BASIC METABOLIC PANELon 04-25 Anion gap [Moles/Vol] 6 mmol/L Normal 3-13 [facility] Comment on above: Performed By: #### L AB15, [id number], [id number] ####Satellite Specialist: GRACIE SUTTON ([phone])[facility])[address] [place] [address] Calcium [Mass/Vol] 8.2 mg/dL Low 8.8-10.0 [facility] Comment on above: Performed By: #### L AB15, [id number], [id number] ####Satellite Specialist: GRACIE SUTTON ([phone])[facility] ([facility])[address] [place] [address] [place] Chloride [Moles/Vol] 112 mmol/L High 98-[address] [facility] Comment on above: Performed By: #### L AB15, [id number], [id number] ####Satellite Specialist: GRACIE SUTTON ([phone])[facility] ([facility])[address] [place] [address] [place] CO2 [Moles/Vol] 22 mmol/L Low 23-31 [facility] Comment on above: Performed By: #### L AB15, [id number], [id number] ####Satellite Specialist: GRACIE SUTTON ([phone])[facility])[address] [place] [address] Creatinine [Mass/Vol] 0.99 mg/dL Normal 0.72-1.25 [facility] Comment on above: Performed By: #### Lisbet AB15, [id number], [id number] ####Satellite Specialist: GRACIE SUTTON ([phone])[facility])[address] [place] [address] [place] GLOMERULAR FILTRATION RATE ML/MIN/1.73 SQ M.PREDICTED 78.0 mL/min/1.73m*2 Normal >60.0 [facility] Comment on above: Result Comment: Calc ulation based on the Chronic Kidney Disease Epidemiology Collaboration (CKD-EPI) equation refit without adjustment for race Performed By: #### Lisbet RODRIGUEZ, [id number], [id number] ####Satellite Specialist: GRACIE SUTTON ([phone])[facility])[address] [place] [address] [place] Glucose [Mass/Vol] 104 mg/dL Normal 82-115 [facility] Comment on above: Performed By: #### Lisbet RODRIGUEZ, [id number], [id number] ####Satellite Specialist: GRACIE SUTTON ([phone])[address] Potassium [Moles/Vol] 3.4 mmol/L Low 3.5-5.1 [facility] Comment on above: Result Comment: [facility] potassium values may be up to 0.5 mmol/L lower than serum values. Performed By: #### Lisbet AB15, [id number], [id number] ####Satellite Specialist: GRACIE SUTTON ([phone])[facility])[address] [place] [address] [place] Sodium [Moles/Vol] 140 mmol/L Normal 136-145 [facility] Comment on above: Performed By: #### Lisbet AB15, [id number], [id number] ####Satellite Specialist: GRACIE SUTTON ([phone])[facility] ([facility])[address] [place] [address] Urea nitrogen [Mass/Vol] 20 mg/dL Normal 9-23 [facility] Comment on above: Performed By: #### L AB15, [id number], [id number] ####Satellite Specialist: GRACIE SUTTON ([phone])[facility] [place] [address] Basic metabolic 1998 panelon 05-12-2025 Anion gap [Moles/Vol] 6 mmol/L 3 - 13 mmol/L [facility] Calcium [Mass/Vol] 8.2 mg/dL Low 8.8 - 10. 0 mg/dL [facility] Chloride [Moles/Vol] 112 mmol/L High 98 - 10 7 mmol/L [facility] CO2 [Moles/Vol] 22 mmol/L Low 23 - 31 mmol/L [facility] Creatinine [Mass/Vol] 0.99 mg/dL 0.72 - 1.25 mg/dL [facility] GFR/1.73 sq M.predicted (S/P/Bld) [Vol rate/Area] 78 mL/min - PINF [facility] Comment on above: Calculation based on the Chronic Kidney Disease Epidemiology Collaboration (CKD-EPI) equation refit without adjustment for race Glucose [Mass/Vol] 104 mg/dL 82 - 115 mg/dL [facility] Interpretation and review of laboratory results Abnormal [facility] Potassium [Moles/Vol] 3.4 mmol/L Low 3.5 - 5.1 mmol/L [facility] Comment on above: Plasma potassium pramod ues may be up to 0.5 mmol/L lower than serum values. Sodium [Moles/Vol] 140 mmol/L 136 - 145 mmol/L [facility] Urea nitrogen [Mass/Vol] 20 mg/dL 9 - 23 mg/dL [facility] CBC W Auto Differential pane l (Bld)on 05-12-2025 Basophils (Bld) [#/Vol] 0.1 10*3/uL 0.0 - 0.2 10*3/uL [facility] Basophils/100 WBC (Bld) 0.8 % 0.0 - 2.0 % [facility] Eosinophils (Bld) [#/Vol] 0.2 10*3/uL 0.0 - 0.5 10*3/uL [facility] Eosinophils/100 WBC (Bld) 3.1 % 0.0 - 6.0 % [facility] Erythrocyte distribution width (RBC) [Ratio] 14.6 % 11.5 - 15.0 % [facility] Hematocrit (Bld) [Volume fraction] 31.8 % Low 40.0 - 52.0 % [facility] Hemoglobin (Bld) [Mass/Vol] 10.6 g/dL Low 13.0 - 18.0 g/dL [facility] Immature granulocytes (Bld) [#/Vol] 0.1 10*3/uL High NINF - 0.1 10*3/uL [facility] Immature granulocytes/100 WBC (Bld) 0.7 % 0.0 - 2.0 % [facility] Interpretation and review of laboratory results Abnormal [facility] Lymphocytes (Bld) [#/Vol] 1.4 10*3/uL 1.0 - 4.3 10*3/uL [facility] Lymphocytes/100 WBC (Bld) 19.2 % 15.0 - 45.0 % [facility] MCH (RBC) [Entitic mass] 29.8 pg 26.0 - 34.0 pg [facility] MCHC (RBC) [Mass/Vol] 33.3 % 30.5 - 36.0 % [facility] MCV (RBC) [Entitic vol] 89.3 fL 77.0 - 99.0 fL [facility] Monocytes (Bld) [#/Vol] 0.7 10*3/uL 0.0 - 0.9 10*3/uL [facility] Monocytes/100 WBC (Bld) 9.8 % 5.0 - 13.0 % [facility] Neutrophils (Bld) [#/Vol] 4.9 10*3/uL 1.8 - 7.5 10*3/uL [facility] Neutrophils/100 WBC (Bld) 66.4 % 38.0 - 82.0 % [facility] Nucleated RBC/100 WBC (Bld) [Ratio] 0 % [facility] Platelet mean volume (Bld) [Entitic vol] 9.1 fL 9.0 - 12.7 fL [email or web address] Platelets (Bld) [#/Vol] 280 10*3/uL 140 - 440 10*3/uL [facility] RBC (Bld) [#/Vol] 3.56 10*6/uL Low 4.40 - 5.9 0 10*6/uL [facility] WBC (Bld) [#/Vol] 7.3 10*3/uL 3.6 - 10.7 10*3/uL [facility] CBC WITH AUTO DIFFERENTIALon 05-12-2025 Basophils (Bld) [#/Vol] 0.1 10*3/uL Normal 0.0-0.2 [facility] Comment on above: Performed By: #### L [id number] ####Satellite Specialist: GRACIE SUTTON ([phone])[facility])[address] [place] [address] Basophils/100 WBC (Bld) 0.8 % Normal 0.0-2.0 [facility] Comment on above: Performed By: #### L [id number] ####Satellite Specialist: GRACIE SUTTON ([phone])[facility])[address] [place] [address] Eosinophils (Bld) [#/Vol] 0.2 10*3/uL Normal 0.0-0.5 [facility] Comment on above: Performed By: #### L [id number] ####Satellite Specialist: GRACIE SUTTON ([phone])[facility])[address] [place] [address] Eosinophils/100 WBC (Bld) 3.1 % Normal 0.0-6.0 [facility] Comment on above: Performed By: #### L [id number] ####Satellite Specialist: GRACIE SUTTON ([phone])[facility])[address] [place] [address] Erythrocyte distribution width (RBC) [Ratio] 14.6 % Normal 11.5-15.0 [facility] Comment on above: Performed By: #### L [id number] ####Satellite Specialist: GRACIE SUTTON ([phone])[facility])[address] [place] [address] Hematocrit (Bld) [Volume fraction] 31.8 % Low 40.0-52.0 [facility] Comment on above: Performed By: #### L [id number] ####Satellite Specialist: GRACIE SUTTON ([phone])[facility])[address] [place] [address] Hemoglobin (Bld) [Mass/Vol] 10.6 g/dL Low 13.0-18.0 [facility] Comment on above: Performed By: #### L [id number] ####Satellite Specialist: GRACIE SUTTON ([phone])[facility])[address] [place] [address] IMMATURE GRANS % 0.7 % Normal 0.0-2.0 [facility] Comment on above: Performed By: #### L [id number] ####Satellite Specialist: GRACIE SUTTON ([phone])[address] IMMATURE GRANS ABSOLUTE 0.1 10*3/uL High <0.1 [facility] Comment on above: Performed By: #### L [id number] ####Satellite Specialist: GRACIE SUTTON ([phone])[facility])[address] [place] [address] Lymphocytes (Bld) [#/Vol] 1.4 10*3/uL Normal 1.0-4.3 [facility] Comment on above: Performed By: #### L [id number] ####Satellite Specialist: GRACIE SUTTON ([phone])[facility])[address] [place] [address] Lymphocytes/100 WBC (Bld) 19.2 % Normal 15.0-45.0 [facility] Comment on above: Performed By: #### L [id number] ####Satellite Specialist: GRACIE SUTTON ([phone])[facility])[address] [place] [address] MCH (RBC) [Entitic mass] 29.8 pg Normal 26.0-34.0 [facility] Comment on above: Performed By: #### L [id number] ####Satellite Specialist: GRACIE SUTTON ([phone])[facility] ([facility])[address] [place] [address] MCHC 33.3 % Normal 30.5-36.0 [facility] Comment on above: Performed By: #### L [id number] ####Satellite Specialist: GRACIE SUTTON ([phone])[facility] ([facility])[address] [place] [address] MCV (RBC) [Entitic vol] 89.3 fL Normal 77.0-99.0 [facility] Comment on above: Performed By: #### L [id number] ####Satellite Specialist: GRACIE SUTTON ([phone])[facility] ([facility])[address] [place] [address] Monocytes (Bld) [#/Vol] 0.7 10*3/uL Normal 0.0-0.9 [facility] Comment on above: Performed By: #### L [id number] ####Satellite Specialist: GRACIE SUTTON ([phone])[facility] ([facility])[address] [place] [address] Monocytes/100 WBC (Bld) 9.8 % Normal 5.0-13.0 [facility] Comment on above: Performed By: #### L [id number] ####Satellite Specialist: GRACIE SUTTON ([phone])[facility] ([facility])[address] [place] [address] NEUTROPHILS ABSOLUTE 4.9 10*3/uL Normal 1.8-7.5 [facility] Comment on above: Performed By: #### L [id number] ####Satellite Specialist: GRACIE SUTTON ([phone])[facility] ([facility])[address] [place] [address] Neutrophils/100 WBC (Bld) 66.4 % Normal 38.0-82.0 [facility] Comment on above: Performed By: #### L [id number] ####Satellite Specialist: GRACIE SUTTON ([phone])[facility] ([facility])[address] [place] [address] NRBC 0.0 /100 WBCs Normal 0.0-2.0 [facility] Comment on above: Performed By: #### L [id number] ####Satellite Specialist: GRACIE SUTTON ([phone])[facility] ([facility])[address] [place] [address] Platelet mean volume (Bld) [Entitic vol] 9.1 fL Normal 9.0-12.7 [facility] Comment on above: Performed By: #### L [id number] ####Satellite Specialist: GRACIE SUTTON ([phone])[facility] ([facility])[address] [place] [address] Platelets (Bld) [#/Vol] 280 10*3/uL Normal 140-440 [facility] Comment on above: Performed By: #### L [id number] ####Satellite Specialist: GRACIE SUTTON ([phone])[facility] ([facility])[address] [place] [address] RBC (Bld) [#/Vol] 3.56 10*6/uL Low 4.40-5.90 [facility] Comment on above: Performed By: #### L [id number] ####Satellite Specialist: GRACIE SUTTON ([phone])[facility] ([facility])[address] [place] [address] WBC (Bld) [#/Vol] 7.3 10*3/uL Normal 3.6-10.7 [facility] Comment on above: Performed By: #### L [id number] ####Satellite Specialist: GRACIE SUTTON ([phone])[facility])[address] [place] [address] Consulton 05-12-2025 Consult Normal [facility] ECG 12-LEADon 05-12-2025 ECG 12-LEAD IMPRESSION: Sinus rhythm Right bundle branch block Inferior infarct, age indeterminate Electronically Signed On 05-12-2025 10:56:45 EDT by Ray Huynh Normal [facility] ECG 12-LEAD IMPRESSION: Sinus rhythm Multiple premature complexes, vent AND supraven Right bundle branch block Compared to ECG 05/11/25 No significant change Electronically Signed On 05-12-2025 03:14:51 EDT by Anselmo Saleh Normal [facility] HIGH SENSITIVITY TROPONIN, S ERIAL BASELINEon 05-12-2025 TROPONIN HS SERIAL BASELINE 37 ng/L High <=35 [facility] Comment on above: Result Comment: In i ndividuals presenting with symptoms > 2h, a baseline troponin <= 5 ng/L suggests acutecardiac injury is unlikely and further serial testing is generally not indicated. Performed By: #### L [id number], [id number], [id number] ####Satellite Specialist: GRACIE SUTTON ([phone])[facility] [employer])[address] [place] [address] HIGH SENSITIVITY TROPONIN, S ERIAL, SECOND TESTon 05-12-2025 2H TROPONIN HS (SERIAL 2ND TROPONIN) 31 ng/L Normal <=35 [facility] Comment on above: Result Comment: Risi ng or falling troponin delta between 2 ??? 15 ng/L as compared to baseline value requires a 3rd serial troponin Performed By: #### L [id number] ####Satellite Specialist: GRACIE SUTTON ([phone])[facility] ([employer])[address] [place] [address] HIGH SENSITIVITY TROPONIN, S ERIAL, THIRD TESTon 05-12-2025 4H TROPONIN HS (SERIAL 3RD TROPONIN) 30 ng/L Normal <=35 [facility] Comment on above: Result Comment: Risi ng or falling troponin delta below 2 ng/L as compared to 2h troponin value suggeststhat acute cardiac injury is unlikely. Performed By: #### L [id number] ####Satellite Specialist: GRACIE SUTTON ([phone])[facility] [employer])[address] [place] [address] Laboratory - Chemistry and C hemistry - challengeon 05-12-2025 Glucose [Mass/Vol] 129 mg/dL High 70 - 100 mg/dL [email or web address] Magnesium [Mass/Vol] 1.1 mg/dL Low 1.6 - 2 .6 mg/dL [email or web address] MAGNESIUMon 05-12-2025 Magnesium [Mass/Vol] 1.1 mg/dL Low 1.6-2.6 [facility] Comment on above: Result Comment: ORDE R COMMENTS:Higher values can be expected in females during menses. Performed By: #### L [id number], [id number], [id number] ####Satellite Specialist: GRACIE SUTTON ([phone])[facility] ([employer])[address] [place] [address] Magnesium [Mass/Vol]on 05-12 Higher values can be expected in females during menses. [facility] No Panel Informationon 05-12 Interpretation and review of laboratory results Abnormal [facility] Performed by: [facility], [address] [place] [id number] CLIA ID: [id number] [facility] Sinus rhythm Right bundle branch block Inferior infarct, age indeterminate Electronically Signed On 05-12-2025 10:56:45 EDT by [employer] [facility] Ray Huynh MD - 05/12/2025 IMPRESSION: Sinus rhythm Right bundle branch block Inferior infarct, age indeterminate Electronically Signed On 05-12-2025 10:56:45 EDT by [employer] [facility] 4h Troponin HS (Serial 3rd Troponin) 30 ng/L NINF - 35 ng/L [facility] Comment on above: Rising or falling tr oponin delta below 2 ng/L as compared to 2h troponin value suggests that acute cardiac injury is unlikely. Interpretation and review of laboratory results Normal [facility] 2h Troponin HS (Serial 2nd Troponin) 31 ng/L NINF - 35 ng/L [facility] Comment on above: Rising or falling tr oponin delta between 2 15 ng/L as compared to baseline value requires a 3rd serial troponin Interpretation and review of laboratory results Normal [facility] Interpretation and review of laboratory results Abnormal [facility] Troponin HS Serial Baseline 37 ng/L High NINF - 35 ng/L [facility] Comment on above: In individuals prese nting with symptoms > 2h, a baseline troponin <= 5 ng/L suggests acute cardiac injury is unlikely and further serial testing is generally not indicated. [facility] Sinus rhythm Multiple premature complexes, vent & supraven Right bundle branch block Compared to ECG 05/11/25 No significant change Electronically Signed On 05-12-2025 03:14:51 EDT by Anselmo Chanel DO - 05/12/2025 IMPRESSION: Sinus rhythm Multiple premature complexes, vent & supraven Right bundle branch block Compared to ECG 05/11/25 No significant change Electronically Signed On 05-12-2025 03:14:51 EDT by Anselmo Saleh [facility] [email or web address] Panel InformationOrdered By: Ray Huynh on 05-12-2025 P Boaz 29 degrees [facility] Work Phone: [phone] CA Interval 195 ms [facility] Work Phone: [phone] QRS Boaz -10 degrees [facility] Work Phone: [phone] QRSD Interval 135 ms [facility] Work Phone: [phone] QT Interval 411 ms [facility] Work Phone: [phone] QTC Interval 474 ms [facility] Work Phone: [phone] T Wave Boaz -33 degrees [facility] Work Phone: [phone] [facility] Work Phone: [phone] No Panel InformationOrdered By: Anselmo Saleh on 05-12-2025 Heart Rate 86 bpm [facility] Work Phone: P Boaz 56 degrees [facility] Work Phone: CA Interval 182 ms [facility] Work Phone: QRS Boaz 28 degrees [facility] Work Phone: QRSD Interval 147 ms [facility] Work Phone: QT Interval 393 ms [facility] Work Phone: QTC Interval 470 ms [facility] Work Phone: T Wave Boaz -9 degrees [facility] Work Phone: [facility] Work Phone: Nursing Noteon 05-12-2025 Nursing Note Report called to Tyrone at [facility]. Normal [facility] Nursing Note IV and tele removed. Belongings gathered. Currently waiting on transport to [facility] Normal [facility] Progress Noteon 05-12-2025 Progress Note Normal [facility] Progress Note Normal [facility] Vital signsOrdered By: Mariza Huynh on 05-12-2025 Heart rate 80 /min bpm [facility] Work Phone: CBC (HEMOGRAM)on 05-11-2025 Erythrocyte distribution width (RBC) [Ratio] 14.5 % Normal 11.5-15.0 [facility] Comment on above: Performed By: #### L [id number] ####Satellite Specialist: GRACIE SUTTON ([phone])[facility])[address] [place] [address] Hematocrit (Bld) [Volume fraction] 36.0 % Low 40.0-52.0 [facility] Comment on above: Performed By: #### L [id number] ####Satellite Specialist: GRACIE SUTTON ([phone])[facility])[address] [place] [address] Hemoglobin (Bld) [Mass/Vol] 12.0 g/dL Low 13.0-18.0 [facility] Comment on above: Performed By: #### L [id number] ####Satellite Specialist: GRACIE SUTTON ([phone])[address] MCH (RBC) [Entitic mass] 29.2 pg Normal 26.0-34.0 [facility] Comment on above: Performed By: #### L [id number] ####Satellite Specialist: GRACIE SUTTON ([phone])[address] MCHC 33.3 % Normal 30.5-36.0 [facility] Comment on above: Performed By: #### L [id number] ####Satellite Specialist: GRACIE SUTTON ([phone])[facility])[address] [place] [address] MCV (RBC) [Entitic vol] 87.6 fL Normal 77.0-99.0 [facility] Comment on above: Performed By: #### L [id number] ####Satellite Specialist: GRACIE SUTTON ([phone])[facility] ([facility])[address] [place] [address] Platelet mean volume (Bld) [Entitic vol] 8.9 fL Low 9.0-12.7 [facility] Comment on above: Performed By: #### L [id number] ####Satellite Specialist: GRACIE SUTTON ([phone])[facility] ([facility])[address] [place] [address] Platelets (Bld) [#/Vol] 350 10*3/uL Normal 140-440 [facility] Comment on above: Performed By: #### L [id number] ####Satellite Specialist: GRACIE SUTTON ([phone])[facility] ([facility])[address] [place] [address] RBC (Bld) [#/Vol] 4.11 10*6/uL Low 4.40-5.90 [facility] Comment on above: Performed By: #### L [id number] ####Satellite Specialist: GRACIE SUTTON ([phone])[facility] ([facility])[address] [place] [address] WBC (Bld) [#/Vol] 9.1 10*3/uL Normal 3.6-10.7 [facility] Comment on above: Performed By: #### L [id number] ####Satellite Specialist: GRACIE SUTTON ([phone])[facility] ([facility])[address] [place] [address] CBC panel Auto (Bld)on 05-11 Erythrocyte distribution width (RBC) [Ratio] 14.5 % 11.5 - 15.0 % [facility] Hematocrit (Bld) [Volume fraction] 36 % Low 40.0 - 52.0 % [facility] Hemoglobin (Bld) [Mass/Vol] 12 g/dL Low 13.0 - 18.0 g/dL [facility] Interpretation and review of laboratory results Abnormal [facility] MCH (RBC) [Entitic mass] 29.2 pg 26.0 - 34.0 pg [facility] MCHC (RBC) [Mass/Vol] 33.3 % 30.5 - 36.0 % [facility] MCV (RBC) [Entitic vol] 87.6 fL 77.0 - 99.0 fL [facility] Platelet mean volume (Bld) [Entitic vol] 8.9 fL Low 9.0 - 12.7 fL [facility] Platelets (Bld) [#/Vol] 350 10*3/uL 140 - 440 10*3/uL [facility] RBC (Bld) [#/Vol] 4.11 10*6/uL Low 4.40 - 5.9 0 10*6/uL [facility] WBC (Bld) [#/Vol] 9.1 10*3/uL 3.6 - 10.7 10*3/uL [facility] CT HEAD NECK ANGIO W AND WO IV CONTRASTon 05-11-2025 CT HEAD NECK ANGIO W AND WO IV CONTRAST Normal [facility] CT HEAD WO IV CONTRASTon CT HEAD WO IV CONTRAST Normal [facility] CT Head WO contraston 2024 Patient Name: TOM BOOTH : 1945 [facility]#: [id number] Exam Date/Time: 05/11/2025 09:49 Procedure: CT HEAD WO IV CONTRAST Ordering Provider: YATES MARK Reason For Exam: Neuro deficit, acute, stroke suspected EXAM TYPE: CT HEAD WO IV CONTRAST, CT HEAD NECK ANGIO W AND WO IV CONTRAST EXAM DATE AND TIME: 05/11/2025 9:49 AM EDT INDICATION: Neurologic deficit, weakness COMPARISON: None available. TECHNIQUE: Noncontrast CT head was obtained. Thin section CT angiography from the aortic arch to the skull base was performed for CT angiography neck and from the skull base to vertex for CT angiography head, following the administration of intravenous contrast. MIP and volume rendered reformats were obtained using a separate workstation. Review of the axial source data and the reconstructed images was performed. A total of 75 mL Isovue 370 IV contrast was administered for intravenous contrast. FINDINGS: Noncontrast CT head: Redemonstration of patchy hypodensity within the left basal ganglia and subinsular region. Chronic right cerebellar infarct. There is no CT evidence of an acute intracranial hemorrhage, territorial infarction, midline shift, mass effect, or extra-axial collection. The calderon-white differentiation remains preserved and the basal cisterns are patent. Patchy hypodensity is seen within periventricular white matter, suggestive of chronic small vessel ischemic changes. Ventricles are appropriate in size for the patient's age and level of parenchymal volume. The osseous structures are unremarkable without evidence of a fracture. Mild mucosal thickening of the maxillary sinuses. Mastoid air cells remain well aerated. Improvement of hyperdense fluid collection along the right ocular globe which is now not well visualized, may be isodense subacute blood. ASPECTS SCORE: 10 CTA HEAD: ANTERIOR CIRCULATION Right Cavernous Carotid Artery: Patent. No focal stenosis, segmental occlusion or aneurysm. Right Middle Cerebral Artery: Patent. No focal stenosis, segmental occlusion or aneurysm. Right Anterior Cerebral Artery: Patent. No focal stenosis, segmental occlusion or aneurysm. Left Cavernous Carotid Artery: Patent with mild to moderate multifocal narrowing of the superior segment branches Left Middle Cerebral Artery: Patent. No focal stenosis, segmental occlusion or aneurysm. Left Anterior Cerebral Artery: Patent. No focal stenosis, segmental occlusion or aneurysm. Anterior Communicating Artery: Patent Posterior Communicating: Not Visualized POSTERIOR CIRCULATION Right Vertebral Artery: Patent. No focal stenosis, segmental occlusion, dissection, or aneurysm. Left Vertebral Artery: Patent. No focal stenosis, segmental occlusion, dissection, or aneurysm. Basilar Artery: Patent. No focal stenosis, segmental occlusion, or aneurysm. Right Posterior Cerebral Artery: Patent. No focal stenosis, segmental occlusion, dissection, or aneurysm. Left Posterior Cerebral Artery: Patent. No focal stenosis, segmental occlusion, dissection, or aneurysm. CTA NECK: AORTIC ARCH: Three-vessel. BRACHIOCEPHALIC ORIGIN AND RIGHT COMMON CAROTID ORIGIN: Patent without significant stenosis. RIGHT COMMON CAROTID ARTERY: Patent with no hemodynamically significant stenosis. RIGHT CAROTID BIFURCATION/PROX INT CAROTID ARTERY: Moderate atherosclerotic plaque. Less than 10 percent stenosis by NASCET criteria. CERVICAL SEGMENT RIGHT CAROTID ARTERY: Patent with no hemodynamically significant stenosis. LEFT COMMON CAROTID: Patent with no hemodynamically significant stenosis. LEFT CAROTID BIFURCATION/PROX LEFT INT CAROTID: Mild plaque within the carotid bulb. Less than 10 percent stenosis by NASCET criteria. CERVICAL SEGMENT LEFT INTERNAL CAROTID: Patent with no hemodynamically significant stenosis. RIGHT VERTEBRAL ARTERY:Patent with no hemodynamically significant stenosis or dissection. LEFT VERTEBRAL ARTERY:Patent with no hemodynamically significant stenosis or dissection. ACCESSORY STRUCTURES: Asymmetric prominence of the right tongue base. Medialization of the left vocal cord. There is no cervical lymphadenopathy. The airways are patent and the lung apices are clear. Straightening of the normal cervical lordosis with multilevel degenerative changes of the cervical spine. 1.7 x 1.0 cm nodular density along the posterior inferior right thyroid, which may be extrathyroidal no nodule or parathyroid adenoma. Partially visualized median sternotomy wires. [facility] Shira, Jorge Patel MD - 05/11/2025 Patient Name: TOM BOOTH : 1945 [facility]#: [id number] Exam Date/Time: 05/11/2025 09:49 Procedure: CT HEAD WO IV CONTRAST Ordering Provider: YATES MARK Reason For Exam: Neuro deficit, acute, stroke suspected EXAM TYPE: CT HEAD WO IV CONTRAST, CT HEAD NECK ANGIO W AND WO IV CONTRAST EXAM DATE AND TIME: 05/11/2025 9:49 AM EDT INDICATION: Neurologic deficit, weakness COMPARISON: None available. TECHNIQUE: Noncontrast CT head was obtained. Thin section CT angiography from the aortic arch to the skull base was performed for CT angiography neck and from the skull base to vertex for CT angiography head, following the administration of intravenous contrast. MIP and volume rendered reformats were obtained using a separate workstation. Review of the axial source data and the reconstructed images was performed. A total of 75 mL Isovue 370 IV contrast was administered for intravenous contrast. FINDINGS: Noncontrast CT head: Redemonstration of patchy hypodensity within the left basal ganglia and subinsular region. Chronic right cerebellar infarct. There is no CT evidence of an acute intracranial hemorrhage, territorial infarction, midline shift, mass effect, or extra-axial collection. The calderon-white differentiation remains preserved and the basal cisterns are patent. Patchy hypodensity is seen within periventricular white matter, suggestive of chronic small vessel ischemic changes. Ventricles are appropriate in size for the patient's age and level of parenchymal volume. The osseous structures are unremarkable without evidence of a fracture. Mild mucosal thickening of the maxillary sinuses. Mastoid air cells remain well aerated. Improvement of hyperdense fluid collection along the right ocular globe which is now not well visualized, may be isodense subacute blood. ASPECTS SCORE: 10 CTA HEAD: ANTERIOR CIRCULATION Right Cavernous Carotid Artery: Patent. No focal stenosis, segmental occlusion or aneurysm. Right Middle Cerebral Artery: Patent. No focal stenosis, segmental occlusion or aneurysm. Right Anterior Cerebral Artery: Patent. No focal stenosis, segmental occlusion or aneurysm. Left Cavernous Carotid Artery: Patent with mild to moderate multifocal narrowing of the superior segment branches Left Middle Cerebral Artery: Patent. No focal stenosis, segmental occlusion or aneurysm. Left Anterior Cerebral Artery: Patent. No focal stenosis, segmental occlusion or aneurysm. Anterior Communicating Artery: Patent Posterior Communicating: Not Visualized POSTERIOR CIRCULATION Right Vertebral Artery: Patent. No focal stenosis, segmental occlusion, dissection, or aneurysm. Left Vertebral Artery: Patent. No focal stenosis, segmental occlusion, dissection, or aneurysm. Basilar Artery: Patent. No focal stenosis, segmental occlusion, or aneurysm. Right Posterior Cerebral Artery: Patent. No focal stenosis, segmental occlusion, dissection, or aneurysm. Left Posterior Cerebral Artery: Patent. No focal stenosis, segmental occlusion, dissection, or aneurysm. CTA NECK: AORTIC ARCH: Three-vessel. BRACHIOCEPHALIC ORIGIN AND RIGHT COMMON CAROTID ORIGIN: Patent without significant stenosis. RIGHT COMMON CAROTID ARTERY: Patent with no hemodynamically significant stenosis. RIGHT CAROTID BIFURCATION/PROX INT CAROTID ARTERY: Moderate atherosclerotic plaque. Less than 10 percent stenosis by NASCET criteria. CERVICAL SEGMENT RIGHT CAROTID ARTERY: Patent with no hemodynamically significant stenosis. LEFT COMMON CAROTID: Patent with no hemodynamically significant stenosis. LEFT CAROTID BIFURCATION/PROX LEFT INT CAROTID: Mild plaque within the carotid bulb. Less than 10 percent stenosis by NASCET criteria. CERVICAL SEGMENT LEFT INTERNAL CAROTID: Patent with no hemodynamically significant stenosis. RIGHT VERTEBRAL ARTERY:Patent with no hemodynamically significant stenosis or dissection. LEFT VERTEBRAL ARTERY:Patent with no hemodynamically significant stenosis or dissection. ACCESSORY STRUCTURES: Asymmetric prominence of the right tongue base. Medialization of the left vocal cord. There is no cervical lymphadenopathy. The airways are patent and the lung apices are clear. Straightening of the normal cervical lordosis with multilevel degenerative changes of the cervical spine. 1.7 x 1.0 cm nodular density along the posterior inferior right thyroid, which may be extrathyroidal no nodule or parathyroid adenoma. Partially visualized median sternotomy wires. IMPRESSION: 1. No acute intracranial hemorrhage or territorial infarct. 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 2. No large vessel occlusion seen in the head or neck. Mild to moderate multifocal narrowing in the left MCA M2 and M3 superior segment branches. 3. Nonspecific asymmetric prominence of th (more content not included)... [facility] Radiology Study observation (narrative) [facility] alth CTA Head vessels and Neck ve ssels WO and W contrast Panfilo 05-11-2025 Patient Name: TOM BOOTH : 1945 [facility]#: [id number] Exam Date/Time: 05/11/2025 09:49 Procedure: CT HEAD NECK ANGIO W AND WO IV CONTRAST Ordering Provider: YATES MARK Reason For Exam: Neuro deficit, acute, stroke suspected EXAM TYPE: CT HEAD WO IV CONTRAST, CT HEAD NECK ANGIO W AND WO IV CONTRAST EXAM DATE AND TIME: 05/11/2025 9:49 AM EDT INDICATION: Neurologic deficit, weakness COMPARISON: None available. TECHNIQUE: Noncontrast CT head was obtained. Thin section CT angiography from the aortic arch to the skull base was performed for CT angiography neck and from the skull base to vertex for CT angiography head, following the administration of intravenous contrast. MIP and volume rendered reformats were obtained using a separate workstation. Review of the axial source data and the reconstructed images was performed. A total of 75 mL Isovue 370 IV contrast was administered for intravenous contrast. FINDINGS: Noncontrast CT head: Redemonstration of patchy hypodensity within the left basal ganglia and subinsular region. Chronic right cerebellar infarct. There is no CT evidence of an acute intracranial hemorrhage, territorial infarction, midline shift, mass effect, or extra-axial collection. The calderon-white differentiation remains preserved and the basal cisterns are patent. Patchy hypodensity is seen within periventricular white matter, suggestive of chronic small vessel ischemic changes. Ventricles are appropriate in size for the patient's age and level of parenchymal volume. The osseous structures are unremarkable without evidence of a fracture. Mild mucosal thickening of the maxillary sinuses. Mastoid air cells remain well aerated. Improvement of hyperdense fluid collection along the right ocular globe which is now not well visualized, may be isodense subacute blood. ASPECTS SCORE: 10 CTA HEAD: ANTERIOR CIRCULATION Right Cavernous Carotid Artery: Patent. No focal stenosis, segmental occlusion or aneurysm. Right Middle Cerebral Artery: Patent. No focal stenosis, segmental occlusion or aneurysm. Right Anterior Cerebral Artery: Patent. No focal stenosis, segmental occlusion or aneurysm. Left Cavernous Carotid Artery: Patent with mild to moderate multifocal narrowing of the superior segment branches Left Middle Cerebral Artery: Patent. No focal stenosis, segmental occlusion or aneurysm. Left Anterior Cerebral Artery: Patent. No focal stenosis, segmental occlusion or aneurysm. Anterior Communicating Artery: Patent Posterior Communicating: Not Visualized POSTERIOR CIRCULATION Right Vertebral Artery: Patent. No focal stenosis, segmental occlusion, dissection, or aneurysm. Left Vertebral Artery: Patent. No focal stenosis, segmental occlusion, dissection, or aneurysm. Basilar Artery: Patent. No focal stenosis, segmental occlusion, or aneurysm. Right Posterior Cerebral Artery: Patent. No focal stenosis, segmental occlusion, dissection, or aneurysm. Left Posterior Cerebral Artery: Patent. No focal stenosis, segmental occlusion, dissection, or aneurysm. CTA NECK: AORTIC ARCH: Three-vessel. BRACHIOCEPHALIC ORIGIN AND RIGHT COMMON CAROTID ORIGIN: Patent without significant stenosis. RIGHT COMMON CAROTID ARTERY: Patent with no hemodynamically significant stenosis. RIGHT CAROTID BIFURCATION/PROX INT CAROTID ARTERY: Moderate atherosclerotic plaque. Less than 10 percent stenosis by NASCET criteria. CERVICAL SEGMENT RIGHT CAROTID ARTERY: Patent with no hemodynamically significant stenosis. LEFT COMMON CAROTID: Patent with no hemodynamically significant stenosis. LEFT CAROTID BIFURCATION/PROX LEFT INT CAROTID: Mild plaque within the carotid bulb. Less than 10 percent stenosis by NASCET criteria. CERVICAL SEGMENT LEFT INTERNAL CAROTID: Patent with no hemodynamically significant stenosis. RIGHT VERTEBRAL ARTERY:Patent with no hemodynamically significant stenosis or dissection. LEFT VERTEBRAL ARTERY:Patent with no hemodynamically significant stenosis or dissection. ACCESSORY STRUCTURES: Asymmetric prominence of the right tongue base. Medialization of the left vocal cord. There is no cervical lymphadenopathy. The airways are patent and the lung apices are clear. Straightening of the normal cervical lordosis with multilevel degenerative changes of the cervical spine. 1.7 x 1.0 cm nodular density along the posterior inferior right thyroid, which may be extrathyroidal no nodule or parathyroid adenoma. Partially visualized median sternotomy wires. [facility] Shira, Jorge Patel MD - 05/11/2025 Patient Name: TOM BOOTH : 1945 Exam Date/Time: 05/11/2025 09:49 Procedure: CT HEAD NECK ANGIO W AND WO IV CONTRAST Ordering Provider: YATES MARK Reason For Exam: Neuro deficit, acute, stroke suspected EXAM TYPE: CT HEAD WO IV CONTRAST, CT HEAD NECK ANGIO W AND WO IV CONTRAST EXAM DATE AND TIME: 05/11/2025 9:49 AM EDT INDICATION: Neurologic deficit, weakness COMPARISON: None available. TECHNIQUE: Noncontrast CT head was obtained. Thin section CT angiography from the aortic arch to the skull base was performed for CT angiography neck and from the skull base to vertex for CT angiography head, following the administration of intravenous contrast. MIP and volume rendered reformats were obtained using a separate workstation. Review of the axial source data and the reconstructed images was performed. A total of 75 mL Isovue 370 IV contrast was administered for intravenous contrast. FINDINGS: Noncontrast CT head: Redemonstration of patchy hypodensity within the left basal ganglia and subinsular region. Chronic right cerebellar infarct. There is no CT evidence of an acute intracranial hemorrhage, territorial infarction, midline shift, mass effect, or extra-axial collection. The calderon-white differentiation remains preserved and the basal cisterns are patent. Patchy hypodensity is seen within periventricular white matter, suggestive of chronic small vessel ischemic changes. Ventricles are appropriate in size for the patient's age and level of parenchymal volume. The osseous structures are unremarkable without evidence of a fracture. Mild mucosal thickening of the maxillary sinuses. Mastoid air cells remain well aerated. Improvement of hyperdense fluid collection along the right ocular globe which is now not well visualized, may be isodense subacute blood. ASPECTS SCORE: 10 CTA HEAD: ANTERIOR CIRCULATION Right Cavernous Carotid Artery: Patent. No focal stenosis, segmental occlusion or aneurysm. Right Middle Cerebral Artery: Patent. No focal stenosis, segmental occlusion or aneurysm. Right Anterior Cerebral Artery: Patent. No focal stenosis, segmental occlusion or aneurysm. Left Cavernous Carotid Artery: Patent with mild to moderate multifocal narrowing of the superior segment branches Left Middle Cerebral Artery: Patent. No focal stenosis, segmental occlusion or aneurysm. Left Anterior Cerebral Artery: Patent. No focal stenosis, segmental occlusion or aneurysm. Anterior Communicating Artery: Patent Posterior Communicating: Not Visualized POSTERIOR CIRCULATION Right Vertebral Artery: Patent. No focal stenosis, segmental occlusion, dissection, or aneurysm. Left Vertebral Artery: Patent. No focal stenosis, segmental occlusion, dissection, or aneurysm. Basilar Artery: Patent. No focal stenosis, segmental occlusion, or aneurysm. Right Posterior Cerebral Artery: Patent. No focal stenosis, segmental occlusion, dissection, or aneurysm. Left Posterior Cerebral Artery: Patent. No focal stenosis, segmental occlusion, dissection, or aneurysm. CTA NECK: AORTIC ARCH: Three-vessel. BRACHIOCEPHALIC ORIGIN AND RIGHT COMMON CAROTID ORIGIN: Patent without significant stenosis. RIGHT COMMON CAROTID ARTERY: Patent with no hemodynamically significant stenosis. RIGHT CAROTID BIFURCATION/PROX INT CAROTID ARTERY: Moderate atherosclerotic plaque. Less than 10 percent stenosis by NASCET criteria. CERVICAL SEGMENT RIGHT CAROTID ARTERY: Patent with no hemodynamically significant stenosis. LEFT COMMON CAROTID: Patent with no hemodynamically significant stenosis. LEFT CAROTID BIFURCATION/PROX LEFT INT CAROTID: Mild plaque within the carotid bulb. Less than 10 percent stenosis by NASCET criteria. CERVICAL SEGMENT LEFT INTERNAL CAROTID: Patent with no hemodynamically significant stenosis. RIGHT VERTEBRAL ARTERY:Patent with no hemodynamically significant stenosis or dissection. LEFT VERTEBRAL ARTERY:Patent with no hemodynamically significant stenosis or dissection. ACCESSORY STRUCTURES: Asymmetric prominence of the right tongue base. Medialization of the left vocal cord. There is no cervical lymphadenopathy. The airways are patent and the lung apices are clear. Straightening of the normal cervical lordosis with multilevel degenerative changes of the cervical spine. 1.7 x 1.0 cm nodular density along the posterior inferior right thyroid, which may be extrathyroidal no nodule or parathyroid adenoma. Partially visualized median sternotomy wires. IMPRESSION: 1. No acute intracranial hemorrhage or territorial infarct. 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 2. No large vessel occlusion seen in the head or neck. Mild to moderate multifocal narrowing in the left MCA M2 and M3 superior segment branches. 3. Nonspecific asymmetric (more content not included)... [facility] Radiology Study observation (narrative) Marilee He alth Consulton 05-11-2025 Consult Normal [facility] ECG 12-LEADon 05-11-2025 ECG 12-LEAD IMPRESSION: Sinus rhythm Ventricular bigeminy Right bundle branch block Electronically Signed On 05-11-2025 14:07:38 EDT by Vignesh Yates Normal [facility] ED Nursing Noteon 05-11-2025 ED Nursing Note Transport at bedside to transport pt to 4W. Normal [facility] ED Provider Noteon ED Provider Note Normal [facility] [place] MODIFIED BARIUM WITH VIDE O AND SPEECHon 05-11-2025 [place] MODIFIED BARIUM WITH VIDEO AND SPEECH Normal [facility] HIGH SENSITIVITY TROPONIN, S ERIAL BASELINEon 05-11-2025 TROPONIN HS SERIAL BASELINE 54 ng/L High <=35 [facility] Comment on above: Result Comment: In i ndividuals presenting with symptoms > 2h, a baseline troponin <= 5 ng/L suggests acutecardiac injury is unlikely and further serial testing is generally not indicated. Performed By: #### L [id number] ####Satellite Specialist: GRACIE SUTTON ([phone])[facility])[address] [place] [address] TROPONIN HS SERIAL BASELINE 9 ng/L Normal <=35 [facility] Comment on above: Result Comment: In i ndividuals presenting with symptoms > 2h, a baseline troponin <= 5 ng/L suggests acutecardiac injury is unlikely and further serial testing is generally not indicated. Performed By: #### L [id number] ####Satellite Specialist: GRACIE SUTTON ([phone])[facility] ([facility])[address] [place] [address] HIGH SENSITIVITY TROPONIN, S ERIAL, SECOND TESTon 05-11-2025 2H TROPONIN HS (SERIAL 2ND TROPONIN) 63 ng/L High <=35 [facility] Comment on above: Result Comment: 2h t roponin (2nd troponin) samples collected between 1h 40 min and 2h and 20 min of the baseline collection time can be utilized to interpret delta troponins as per [employer] algorithms. Samples collected outside this timeframe need to be interpreted clinically.Rising or falling troponin delta between 2 ??? 15 ng/L as compared to baseline value requires a 3rd serial troponin Performed By: #### L [id number] ####Satellite Specialist: GRACIE SUTTON ([phone])[facility] ([facility])[address] [place] [address] 2H TROPONIN HS (SERIAL 2ND TROPONIN) 33 ng/L Normal <=35 [facility] Comment on above: Result Comment: 2h t roponin (2nd troponin) samples collected between 1h 40 min and 2h and 20 min of the baseline collection time can be utilized to interpret delta troponins as per [employer]ma algorithms. Samples collected outside this timeframe need to be interpreted clinically.Rising or falling troponin delta greater than 15 ng/L as compared to baseline value issignificant for acute cardiac injury. Performed By: #### L [id number] ####Satellite Specialist: GRACIE SUTTON ([phone])[facility] ([employer])[address] [place] [address] HIGH SENSITIVITY TROPONIN, S ERIAL, THIRD TESTon 05-11-2025 4H TROPONIN HS (SERIAL 3RD TROPONIN) 62 ng/L High <=35 [facility] Comment on above: Result Comment: 4h t roponin (3rd troponin) samples collected between 1h 40 min and 2h and 20 min of the 2h troponin collection time can be utilized to interpret delta troponins as per [employer]ma algorithms. Samples collected outside this timeframe need to be interpreted clinically.Rising or falling troponin delta below 2 ng/L as compared to 2h troponin value suggeststhat acute cardiac injury is unlikely. Performed By: #### L [id number] ####Satellite Specialist: GRACIE SUTTON ([phone])[facility] ([employer])[address] [place] [address] Laboratory - Chemistry and C hemistry - challengeon 05-11-2025 Glucose [Mass/Vol] 113 mg/dL High 70 - 100 mg/dL [email or web address] Anion gap (Bld) [Moles/Vol] 14 mmol/L High 3.00 - 13.00 [facility] Calcium.ionized (Bld) [Moles/Vol] 4.9 mg/dl 4.30 - 5.20 mg/dl [email or web address] Comment on above: Performed by [employer] CLIA ID:[id number] [place], [place] Device: [id number] [employer]ological Scout ID: [id number] Chloride [Moles/Vol] 105 mmol/L 98 - 11 4 mmol/L [email or web address] CO2 [Moles/Vol] 21 mmol/L 21 - 29 mmol/L [email or web address] Creatinine [Mass/Vol] 1.2 mg/dL 0.6 - 1.3 mg/dL [email or web address] GFR/1.73 sq M.predicted CKD-EPI (S/P/Bld) [Vol rate/Area] 61.9 [facility] Comment on above: KDIGO guidelines pro vide the following GFR categories: Stage GFR (ml/min/1.73 m2) Terms G1 >=90 Normal or high G2 60-89 Mildly decreased* G3a 45-59 Mildly to moderately decreased G3b 30-44 Moderately to severely decreased G4 15-29 Severely decreased G5 <15 Kidney failure *Relative to young adult level. In the absence of evidence of kidney damage, neither GFR category G1 nor G2 fulfill the criteria for CKD. The CKD-EPI equation is validated in individuals 18 years of age and older. Currently the best equation for estimating glomerular filtration rate (GFR) from serum creatinine in children is the Bedside Savage equation. It is less accurate in patients with extremes of muscle mass, restriction of dietary protein, ingestion of creatine, extra-renal metabolism of creatinine, or treatment with medications that affect renal tubular creatinine secretion. Glucose [Mass/Vol] 213 mg/dL High 70 - 100 mg/dL [facility] Potassium [Moles/Vol] 3.7 mmol/L 3.4 - 5.1 mmol/L [facility] Sodium [Moles/Vol] 140 mmol/L 133 - 145 mmol/L [facility] Urea (Bld) [Mass/Vol] 21 mg/dL 4 - 22 mg/dL S [facility] Laboratory - Coagulationon 0 05-11-2025 aPTT Coag (PPP) [Time] 28.9 s 20.0 - 30.5 s [facility] INR Coag (PPP) [Relative time] 1.1 {INR} 0.9 - 1.1 [facility] Comment on above: Recommended Anticoag ulant Therapy: SEE BELOW ----- INR of 2.0 - 3.0 : - Prophylaxis of Venous Thrombosis (high-risk surgery) - Treatment of Venous Thrombosis - Treatment of Pulmonary Embolism (Includes tissue heart valves, Acute Myocardial Infarction to prevent systemic embolism, Valvular Heart Disease, and Atrial Fibrillation) ----- INR of 2.5 - 3.5 : - Mechanical Prosthetic Valves (high risk) - If oral anticoagulant therapy is used to prevent Myocardial Infarction PT Coag (Bld) [Time] 11.3 s 9.0 - 12.0 s [facility] No Panel Informationon 05-11 4h Troponin HS (Serial 3rd Troponin) 62 ng/L High NINF - 35 ng/L [facility] Comment on above: 4h troponin (3rd tro ponin) samples collected between 1h 40 min and 2h and 20 min of the 2h troponin collection time can be utilized to interpret delta troponins as per [employer] algorithms. Samples collected outside this timeframe need to be interpreted clinically. Rising or falling troponin delta below 2 ng/L as compared to 2h troponin value suggests that acute cardiac injury is unlikely. Interpretation and review of laboratory results Abnormal [facility] 2h Troponin HS (Serial 2nd Troponin) 63 ng/L High NINF - 35 ng/L [facility] Comment on above: 2h troponin (2nd tro ponin) samples collected between 1h 40 min and 2h and 20 min of the baseline collection time can be utilized to interpret delta troponins as per [employer] algorithms. Samples collected outside this timeframe need to be interpreted clinically. Rising or falling troponin delta between 2 15 ng/L as compared to baseline value requires a 3rd serial troponin Interpretation and review of laboratory results Abnormal [facility] Interpretation and review of laboratory results Abnormal [facility] Troponin HS Serial Baseline 54 ng/L High NINF - 35 ng/L [facility] Comment on above: In individuals prese nting with symptoms > 2h, a baseline troponin <= 5 ng/L suggests acute cardiac injury is unlikely and further serial testing is generally not indicated. [facility] Interpretation and review of laboratory results Abnormal [facility] Performed by: [facility], [address] [place] [address] CLIA ID: [id number] [facility] Sinus rhythm Ventricular bigeminy Right bundle branch block Electronically Signed On 05-11-2025 14:07:38 EDT by Vignesh Yates Vignesh Sharpe MD - 05/11/2025 IMPRESSION: Sinus rhythm Ventricular bigeminy Right bundle branch block Electronically Signed On 05-11-2025 14:07:38 EDT by Vignesh Yates [facility] 2h Troponin HS (Serial 2nd Troponin) 33 ng/L NINF - 35 ng/L [facility] Comment on above: 2h troponin (2nd tro ponin) samples collected between 1h 40 min and 2h and 20 min of the baseline collection time can be utilized to interpret delta troponins as per [employer] algorithms. Samples collected outside this timeframe need to be interpreted clinically. Rising or falling troponin delta greater than 15 ng/L as compared to baseline value is significant for acute cardiac injury. Interpretation and review of laboratory results Normal [email or web address] Interpretation and review of laboratory results Normal [facility] Troponin HS Serial Baseline 9 ng/L NINF - 35 ng/L [email or web address] Comment on above: In individuals prese nting with symptoms > 2h, a baseline troponin <= 5 ng/L suggests acute cardiac injury is unlikely and further serial testing is generally not indicated. [email or web address] Interpretation and review of laboratory results Normal [facility] 1. No acute intracranial hemorrhage or territorial infarct. 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 2. No large vessel occlusion seen in the head or neck. Mild to moderate multifocal narrowing in the left MCA M2 and M3 superior segment branches. 3. Nonspecific asymmetric prominence of the right tongue base, which may be due to neurologic deficit among other possibilities. Recommend correlation with physical examination. 4. 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 5. 1.7 x 1.0 cm nodular density along the posterior inferior right thyroid, which may be extrathyroidal no nodule or parathyroid adenoma. Ultrasound and/or nuclear medicine parathyroid scan could be considered for further evaluation as clinically warranted. CRITICAL TEST RESULT COMMUNICATION: Critical findings discussed with Dr. Cueva at 05/11/2025 0956 AM EDT. Report Dictated on Electronically Signed By: Jorge Silva DR Electronically Signed Date/Time: 05/11/2025 10:20 AM EDT [facility] Interpretation and review of laboratory results Abnormal [email or web address] Performed by: [facility], [address] [place] [address] CLIA ID: [id number] [email or web address] No Panel InformationOrdered By: Vignesh Yates on 05-11-2025 Heart Rate 98 bpm [email or web address] Work Phone: P Boaz 49 degrees [email or web address] Work Phone: CA Interval 204 ms [employer] [email or web address] Work Phone: QRS Boaz 12 degrees [email or web address] Work Phone: QRSD Interval 146 ms [facility] Work Phone: QT Interval 376 ms [email or web address] Work Phone: QTC Interval 480 ms [email or web address] Work Phone: T Wave Boaz 5 degrees [facility] [employer] [facility] Work Phone: [facility] Work Phone: No Panel InformationOrdered By: Jorge Silva on 05-11-2025 [email or web address] Work Phone: PROTIME AND APTTon aPTT Coag (Bld) [Time] 28.9 s Normal 20.0-30.5 [facility] Comment on above: Performed By: #### L [id number] ####Satellite Specialist: GRACIE SUTTON ([phone])[facility])[address] [place] [address] INR Coag (PPP) [Relative time] 1.1 {INR} Normal 0.9-1.1 [facility] Comment on above: Result Comment: Brandon mmended Anticoagulant Therapy: SEE BELOW----- INR of 2.0 - 3.0 : - Prophylaxis of Venous Thrombosis (high-risk surgery) - Treatment of Venous Thrombosis - Treatment of Pulmonary Embolism (Includes tissue heart valves, Acute Myocardial Infarction to prevent systemic embolism, Valvular Heart Disease, and Atrial Fibrillation)----- INR of 2.5 - 3.5 : - Mechanical Prosthetic Valves (high risk) - If oral anticoagulant therapy is used to prevent Myocardial Infarction Performed By: #### L [id number] ####Satellite Specialist: GRACIE SUTTON ([phone])[facility] [employer])[address] [place] [address] PT Coag (PPP) [Time] 11.3 s Normal 9.0-12.[address] [facility] Comment on above: Performed By: #### L [id number] ####Satellite Specialist: GRACIE SUTTON ([phone])[facility])[address] [place] [address] Progress Noteon 05-11-2025 Progress Note Normal [facility] [employer] [facility] Progress Note Normal [facility] RF videography Hypopharynx a nd Esophagus Views for swallowing function W speech and W barium contrast Oz 05-11-2025 No vocal cord penetration or airway aspiration. Please refer to the speech pathologist's report for additional comments and recommendation. Report Dictated on Electronically Signed By: Lexii Fong MD Electronically Signed Date/Time: 05/11/2025 2:31 PM EDT [facility] Patient Name: TOM BOOTH : 1945 Exam Date/Time: 05/11/2025 13:31 Procedure: FL MODIFIED BARIUM WITH VIDEO AND SPEECH Ordering Provider: VILLATORO ANDREW Reason For Exam: Aspiration MODIFIED BARIUM SWALLOW (COOKIE SWALLOW) CLINICAL INDICATION: Dysphagia. Cough with anything by mouth. COMPARISON: None. FLUOROSCOPY DOSE: Ka,r= 14.31 mGy TECHNIQUE: The procedure was performed in conjunction with speech therapy. Barium mixtures of various consistencies were given under fluoroscopy with the patient in the sitting lateral position. FINDINGS: Preparatory phase shows decreased bolus formation. Oral phase shows oral residuals with spillage to the valleculae and piriforms. Pharyngeal phase shows reduced laryngeal elevation, a weak tongue base, a weak pharyngeal wall with vallecular and piriform residuals. Coating of the back the epiglottis is observed. There is no vocal cord penetration or airway aspiration. A small pharyngocele and cervical osteophytes are noted. [facility] Lexii Fong MD - 05/11/2025 Patient Name: TOM BOOTH : 1945 Exam Date/Time: 05/11/2025 13:31 Procedure: FL MODIFIED BARIUM WITH VIDEO AND SPEECH Ordering Provider: VILLATORO ANDREW Reason For Exam: Aspiration MODIFIED BARIUM SWALLOW (COOKIE SWALLOW) CLINICAL INDICATION: Dysphagia. Cough with anything by mouth. COMPARISON: None. FLUOROSCOPY DOSE: Ka,r= 14.31 mGy TECHNIQUE: The procedure was performed in conjunction with speech therapy. Barium mixtures of various consistencies were given under fluoroscopy with the patient in the sitting lateral position. FINDINGS: Preparatory phase shows decreased bolus formation. Oral phase shows oral residuals with spillage to the valleculae and piriforms. Pharyngeal phase shows reduced laryngeal elevation, a weak tongue base, a weak pharyngeal wall with vallecular and piriform residuals. Coating of the back the epiglottis is observed. There is no vocal cord penetration or airway aspiration. A small pharyngocele and cervical osteophytes are noted. IMPRESSION: No vocal cord penetration or airway aspiration. Please refer to the speech pathologist's report for additional comments and recommendation. Report Dictated on Electronically Signed By: Lexii Fong MD Electronically Signed Date/Time: 05/11/2025 2:31 PM EDT [facility] Radiology Study observation (narrative) [facility] alth RF videography Hypopharynx a nd Esophagus Views for swallowing function W speech and W barium contrast POOrdered By: Lexii Fong on 05-11-2025 [facility] Work Phone: XR Chest 2 Viewson No acute consolidative process. Report Dictated on Electronically Signed By: Jorge Silva DR Electronically Signed Date/Time: 05/11/2025 11:02 AM EDT [facility] [employer] [facility] Patient Name: TOM BOOTH : 1945 Exam Date/Time: 05/11/2025 10:56 Procedure: XR CHEST 2 VIEWS Ordering Provider: VILLATORO ANDREW Reason For Exam: Aspiration Clinical History: Aspiration Comparison: 04/22/2025 Technique: PA and lateral radiographs were obtained of the chest. Findings: Median sternotomy wires and mediastinal surgical clips with findings suggestive of coronary artery bypass. Probable extra vascular cardiac pacemaker leads. The heart size and mediastinal contours are normal. Pulmonary vascularity is normal and there is no pneumothorax. The lungs are clear with no acute infiltrate or effusion. No displaced rib fractures seen. [facility] Jorge Silva MD - 05/11/2025 Patient Name: TOM BOOTH : 1945 Exam Date/Time: 05/11/2025 10:56 Procedure: XR CHEST 2 VIEWS Ordering Provider: VILLATORO ANDREW Reason For Exam: Aspiration Clinical History: Aspiration Comparison: 04/22/2025 Technique: PA and lateral radiographs were obtained of the chest. Findings: Median sternotomy wires and mediastinal surgical clips with findings suggestive of coronary artery bypass. Probable extra vascular cardiac pacemaker leads. The heart size and mediastinal contours are normal. Pulmonary vascularity is normal and there is no pneumothorax. The lungs are clear with no acute infiltrate or effusion. No displaced rib fractures seen. IMPRESSION: No acute consolidative process. Report Dictated on Electronically Signed By: Jorge Silva DR Electronically Signed Date/Time: 05/11/2025 11:02 AM EDT [facility] Radiology Study observation (narrative) [facility] 05-08-2025 36 I LVM for pt's to call me back to schedule EM & appt with Dr. Yancey [facility] [id number] 05-02-2025 [id number] Patient Choice Patient Name: TOM BOOTH Date of : 1945 [facility] 3605-02-2025 36 EM ordered Please schedule follow up with Dr Yancey [facility] 36 [facility] 3005-01-2025 30 [facility] [id number] 05-01-2025 [id number] [facility] [id number] Tx team and , patient notified of confirmed transport time for [facility] mar was sent at 947 AM bernadine done.. [facility] [id number] [facility] [id number] [facility] [id number] [facility] per [facility] request. Await review and response regarding ability to accept. TCC notified. Normal [facility] BASIC METABOLIC PANELon 07-0 Anion gap [Moles/Vol] 8 mmol/L Normal 3-13 [facility] Comment on above: Performed By: #### L AB113, LAB15, [id number] ####Satellite Specialist: GRACIE SUTTON ([phone])[facility] ([facility])[address] [place] [address] Calcium [Mass/Vol] 8.8 mg/dL Normal 8.8-10.0 [facility] Comment on above: Performed By: #### L AB113, LAB15, [id number] ####Satellite Specialist: GRACIE SUTTON ([phone])[facility] ([facility])[address] [place] [address] Chloride [Moles/Vol] 108 mmol/L High 98-[address] [facility] Comment on above: Performed By: #### L AB113, LAB15, [id number] ####Satellite Specialist: GRACIE SUTTON ([phone])[facility] ([facility])[address] [place] [address] CO2 [Moles/Vol] 21 mmol/L Low 23-31 [facility] Comment on above: Performed By: #### L AB113, LAB15, [id number] ####Satellite Specialist: GRACIE SUTTON ([phone])[facility] ([facility])[address] [place] [address] Creatinine [Mass/Vol] 0.84 mg/dL Normal 0.72-1.25 [facility] Comment on above: Performed By: #### L AB113, LAB15, [id number] ####Satellite Specialist: GRACIE SUTTON ([phone])[facility])[address] [place] [address] [place] GLOMERULAR FILTRATION RATE ML/MIN/1.73 SQ M.PREDICTED 89.3 mL/min/1.73m*2 Normal >60.0 [facility] Comment on above: Result Comment: Calc ulation based on the Chronic Kidney Disease Epidemiology Collaboration (CKD-EPI) equation refit without adjustment for race Performed By: #### L AB113, LAB15, [id number] ####Satellite Specialist: GARCIE SUTTON ([phone])[facility])[address] [place] [address] Glucose [Mass/Vol] 198 mg/dL High 82-115 [facility] Comment on above: Performed By: #### L AB113, LAB15, [id number] ####Satellite Specialist: GRACIE SUTTON ([phone])[facility])[address] [place] [address] Potassium [Moles/Vol] 3.7 mmol/L Normal 3.5-5.1 [facility] Comment on above: Result Comment: [facility] potassium values may be up to 0.5 mmol/L lower than serum values. Performed By: #### L AB113, LAB15, [id number] ####Satellite Specialist: GRACIE SUTTON ([phone])[facility])[address] [place] [address] Sodium [Moles/Vol] 137 mmol/L Normal 136-145 [facility] Comment on above: Performed By: #### L AB113, LAB15, [id number] ####Satellite Specialist: GRACIE SUTTON ([phone])[facility])[address] [place] [address] Urea nitrogen [Mass/Vol] 34 mg/dL High 9-23 [facility] Comment on above: Performed By: #### L AB113, LAB15, [id number] ####Satellite Specialist: GRACIE SUTTON ([phone])[facility])[address] [place] [address] Basic metabolic 1998 panelon 05-01-2025 Anion gap [Moles/Vol] 8 mmol/L 3 - 13 mmol/L [facility] Calcium [Mass/Vol] 8.8 mg/dL 8.8 - 10. 0 mg/dL [facility] Chloride [Moles/Vol] 108 mmol/L High 98 - 10 7 mmol/L [facility] CO2 [Moles/Vol] 21 mmol/L Low 23 - 31 mmol/L [facility] Creatinine [Mass/Vol] 0.84 mg/dL 0.72 - 1.25 mg/dL [facility] [email or web address] GFR/1.73 sq M.predicted (S/P/Bld) [Vol rate/Area] 89.3 mL/min - PINF [facility] Glucose [Mass/Vol] 198 mg/dL High 82 - 115 mg/dL [facility] Interpretation and review of laboratory results Abnormal [facility] Potassium [Moles/Vol] 3.7 mmol/L 3.5 - 5.1 mmol/L [facility] Sodium [Moles/Vol] 137 mmol/L 136 - 145 mmol/L [facility] Urea nitrogen [Mass/Vol] 34 mg/dL High 9 - 23 mg/dL [facility] CBC W Auto Differential pane l (Bld)on 05-01-2025 Basophils (Bld) [#/Vol] 0.1 10*3/uL 0.0 - 0.2 10*3/uL [facility] Basophils/100 WBC (Bld) 0.5 % 0.0 - 2.0 % [facility] Eosinophils (Bld) [#/Vol] 0.3 10*3/uL 0.0 - 0.5 10*3/uL [facility] Eosinophils/100 WBC (Bld) 2.8 % 0.0 - 6.0 % [facility] Erythrocyte distribution width (RBC) [Ratio] 13.7 % 11.5 - 15.0 % [facility] Hematocrit (Bld) [Volume fraction] 35.1 % Low 40.0 - 52.0 % [facility] Hemoglobin (Bld) [Mass/Vol] 11.6 g/dL Low 13.0 - 18.0 g/dL [facility] Immature granulocytes (Bld) [#/Vol] 0.1 10*3/uL High NINF - 0.1 10*3/uL [facility] [email or web address] Immature granulocytes/100 WBC (Bld) 0.6 % 0.0 - 2.0 % [facility] Interpretation and review of laboratory results Abnormal [facility] Lymphocytes (Bld) [#/Vol] 1.4 10*3/uL 1.0 - 4.3 10*3/uL [facility] Lymphocytes/100 WBC (Bld) 12.1 % Low 15.0 - 45.0 % [facility] MCH (RBC) [Entitic mass] 28.7 pg 26.0 - 34.0 pg [facility] MCHC (RBC) [Mass/Vol] 33 % 30.5 - 36.0 % [facility] MCV (RBC) [Entitic vol] 86.9 fL 77.0 - 99.0 fL [facility] Monocytes (Bld) [#/Vol] 1.6 10*3/uL High 0.0 - 0.9 10*3/uL [facility] Monocytes/100 WBC (Bld) 13.7 % High 5.0 - 13.0 % [facility] Neutrophils (Bld) [#/Vol] 8.1 10*3/uL High 1.8 - 7.5 10*3/uL [facility] Neutrophils/100 WBC (Bld) 70.3 % 38.0 - 82.0 % [facility] Nucleated RBC/100 WBC (Bld) [Ratio] 0 % [facility] Platelet mean volume (Bld) [Entitic vol] 9.7 fL 9.0 - 12.7 fL [facility] Platelets (Bld) [#/Vol] 263 10*3/uL 140 - 440 10*3/uL [facility] RBC (Bld) [#/Vol] 4.04 10*6/uL Low 4.40 - 5.9 0 10*6/uL [facility] WBC (Bld) [#/Vol] 11.6 10*3/uL High 3.6 - 10.7 10*3/uL [facility] CBC WITH AUTO DIFFERENTIALon 05-01-2025 Basophils (Bld) [#/Vol] 0.1 10*3/uL Normal 0.0-0.2 [facility] Comment on above: Performed By: #### L [id number] ####Satellite Specialist: GRACIE SUTTON ([phone])[facility] ([facility])[address] [place] [address] Basophils/100 WBC (Bld) 0.5 % Normal 0.0-2.0 [facility] Comment on above: Performed By: #### L [id number] ####Satellite Specialist: GRACIE SUTTON ([phone])[facility] ([facility])[address] [place] [address] Eosinophils (Bld) [#/Vol] 0.3 10*3/uL Normal 0.0-0.5 [facility] Comment on above: Performed By: #### L [id number] ####Satellite Specialist: GRACIE SUTTON ([phone])[address] Eosinophils/100 WBC (Bld) 2.8 % Normal 0.0-6.0 [facility] Comment on above: Performed By: #### L [id number] ####Satellite Specialist: GRACIE SUTTON ([phone])[facility])[address] [place] [address] Erythrocyte distribution width (RBC) [Ratio] 13.7 % Normal 11.5-15.0 [facility] Comment on above: Performed By: #### L [id number] ####Satellite Specialist: GRACIE SUTTON ([phone])[address] Hematocrit (Bld) [Volume fraction] 35.1 % Low 40.0-52.0 [facility] Comment on above: Performed By: #### L [id number] ####Satellite Specialist: GRACIE SUTTON ([phone])[address] Hemoglobin (Bld) [Mass/Vol] 11.6 g/dL Low 13.0-18.0 [facility] Comment on above: Performed By: #### L [id number] ####Satellite Specialist: GRACIE SUTTON ([phone])[address] IMMATURE GRANS % 0.6 % Normal 0.0-2.0 [facility] Comment on above: Performed By: #### L [id number] ####Satellite Specialist: GRACIE SUTTON ([phone])[address] IMMATURE GRANS ABSOLUTE 0.1 10*3/uL High <0.1 [facility] Comment on above: Performed By: #### L [id number] ####Satellite Specialist: GRACIE [phone])[facility])[address] [place] [address] Lymphocytes (Bld) [#/Vol] 1.4 10*3/uL Normal 1.0-4.3 [facility] Comment on above: Performed By: #### L [id number] ####Satellite Specialist: GRACIE SUTTON ([phone])[facility])[address] [place] [address] Lymphocytes/100 WBC (Bld) 12.1 % Low 15.0-45.0 [facility] Comment on above: Performed By: #### L [id number] ####Satellite Specialist: GRACIE SUTTON ([phone])[facility])[address] [place] [address] MCH (RBC) [Entitic mass] 28.7 pg Normal 26.0-34.0 [facility] Comment on above: Performed By: #### L [id number] ####Satellite Specialist: GRACIE SUTTON ([phone])[facility])[address] [place] [address] MCHC 33.0 % Normal 30.5-36.0 [facility] Comment on above: Performed By: #### L [id number] ####Satellite Specialist: GRACIE SUTTON ([phone])[facility])[address] [place] [address] MCV (RBC) [Entitic vol] 86.9 fL Normal 77.0-99.0 [facility] Comment on above: Performed By: #### L [id number] ####Satellite Specialist: GRACIE SUTTON ([phone])[facility])[address] [place] [address] Monocytes (Bld) [#/Vol] 1.6 10*3/uL High 0.0-0.9 [facility] Comment on above: Performed By: #### L [id number] ####Satellite Specialist: GRACIE SUTTON ([phone])[facility])[address] [place] [address] Monocytes/100 WBC (Bld) 13.7 % High 5.0-13.0 [facility] Comment on above: Performed By: #### L [id number] ####Satellite Specialist: GRACIE SUTTON ([phone])[facility] ([facility])[address] [place] [address] NEUTROPHILS ABSOLUTE 8.1 10*3/uL High 1.8-7.5 [facility] Comment on above: Performed By: #### L [id number] ####Satellite Specialist: GRACIE SUTTON ([phone])[facility] ([facility])[address] [place] [address] Neutrophils/100 WBC (Bld) 70.3 % Normal 38.0-82.0 [facility] Comment on above: Performed By: #### L [id number] ####Satellite Specialist: GRACIE SUTTON ([phone])[facility] ([facility])[address] [place] [address] NRBC 0.0 /100 WBCs Normal 0.0-2.0 [facility] Comment on above: Performed By: #### L [id number] ####Satellite Specialist: GRACIE SUTTON ([phone])[facility] ([facility])[address] [place] [address] Platelet mean volume (Bld) [Entitic vol] 9.7 fL Normal 9.0-12.7 [facility] Comment on above: Performed By: #### L [id number] ####Satellite Specialist: GRACIE SUTTON ([phone])[facility] ([facility])[address] [place] [address] Platelets (Bld) [#/Vol] 263 10*3/uL Normal 140-440 [facility] Comment on above: Performed By: #### L [id number] ####Satellite Specialist: GRACIE SUTTON ([phone])[facility] ([facility])[address] [place] [address] RBC (Bld) [#/Vol] 4.04 10*6/uL Low 4.40-5.90 [facility] Comment on above: Performed By: #### L [id number] ####Satellite Specialist: GRACIE SUTTON ([phone])[facility])[address] [place] [address] WBC (Bld) [#/Vol] 11.6 10*3/uL High 3.6-10.7 [facility] Comment on above: Performed By: #### L [id number] ####Satellite Specialist: GRACIE SUTTON ([phone])[facility] ([facility])[address] [place] [address] Laboratory - Chemistry and C hemistry - challengeon 05-01-2025 Glucose [Mass/Vol] 214 mg/dL High 70 - 100 mg/dL [facility] Glucose [Mass/Vol] 239 mg/dL High 70 - 100 mg/dL [facility] Magnesium [Mass/Vol] 1.6 mg/dL 1.6 - 2 .6 mg/dL [facility] MAGNESIUMon 05-01-2025 Magnesium [Mass/Vol] 1.6 mg/dL Normal 1.6-2.[address] [facility] Comment on above: Result Comment: TERRELL R COMMENTS:Higher values can be expected in females during menses. Performed By: #### L AB113, LAB15, [id number] ####Satellite Specialist: GRACIE SUTTON ([phone])[facility])[address] [place] [address] Magnesium [Mass/Vol]on 05-01 [facility] No Panel Informationon 05-01 Interpretation and review of laboratory results Abnormal [facility] Interpretation and review of laboratory results Abnormal [facility] Interpretation and review of laboratory results Normal [facility] Nursing Noteon 05-01-2025 Nursing Note Report called to [facility]. No further questions. Normal [facility] PHOSPHORUSon 05-01-2025 Phosphate [Mass/Vol] 2.7 mg/dL Normal 2.3-4.[address] [facility] Comment on above: Performed By: #### L AB113, LAB15, [id number] ####Satellite Specialist: GRACIE SUTTON ([phone])[facility] [place] [address] [place] Phosphate [Moles/Vol]on Phosphate [Mass/Vol] 2.7 mg/dL 2.3 - 4 .7 mg/dL [facility] Progress Noteon 05-01-2025 Progress Note Normal [facility] Progress Note Normal [facility] 30on 04-30-2025 30 Normal [facility] BASIC METABOLIC PANELon Anion gap [Moles/Vol] 8 mmol/L Normal 3-13 [facility] Comment on above: Performed By: #### L AB113, [id number], LAB15 ####Satellite Specialist: GRACIE SUTTON ([phone])[facility] ([facility])[address] [place] [address] [place] Calcium [Mass/Vol] 8.8 mg/dL Normal 8.8-10.0 [facility] Comment on above: Performed By: #### L AB113, [id number], LAB15 ####Satellite Specialist: GRACIE SUTTON ([phone])[facility] [place] [address] [place] Chloride [Moles/Vol] 108 mmol/L High 98-107 [facility] Comment on above: Performed By: #### L AB113, [id number], LAB15 ####Satellite Specialist: GRACIE SUTTON ([phone])[facility] ([facility])[address] [place] [address] [place] CO2 [Moles/Vol] 20 mmol/L Low 23-31 [facility] Comment on above: Performed By: #### L AB113, [id number], LAB15 ####Satellite Specialist: GRACIE SUTTON ([phone])[facility] ([facility])[address] [place] [address] [place] Creatinine [Mass/Vol] 1.02 mg/dL Normal 0.72-1.25 [facility] Comment on above: Performed By: #### L AB113, [id number], LAB15 ####Satellite Specialist: GRACIE SUTTON ([phone])[facility])[address] [place] [address] GLOMERULAR FILTRATION RATE ML/MIN/1.73 SQ M.PREDICTED 75.2 mL/min/1.73m*2 Normal >60.0 [facility] Comment on above: Result Comment: Calc ulation based on the Chronic Kidney Disease Epidemiology Collaboration (CKD-EPI) equation refit without adjustment for race Performed By: #### L AB113, [id number], LAB15 ####Satellite Specialist: GRACIE SUTTON ([phone])[facility])[address] [place] [address] Glucose [Mass/Vol] 208 mg/dL High 82-115 [facility] Comment on above: Performed By: #### Lisbet AB113, [id number], LAB15 ####Satellite Specialist: GRACIE SUTTON ([phone])[facility])[address] [place] [address] Potassium [Moles/Vol] 4.1 mmol/L Normal 3.5-5.1 [facility] Comment on above: Result Comment: [facility] potassium values may be up to 0.5 mmol/L lower than serum values. Performed By: #### L AB113, [id number], LAB15 ####Satellite Specialist: GRACIE SUTTON ([phone])[facility])[address] [place] [address] Sodium [Moles/Vol] 136 mmol/L Normal 136-145 [facility] Comment on above: Performed By: #### L AB113, [id number], LAB15 ####Satellite Specialist: GRACIE SUTTON ([phone])[facility])[address] [place] [address] [place] Urea nitrogen [Mass/Vol] 40 mg/dL High 9-23 [facility] Comment on above: Performed By: #### L AB113, KUV409, LAB15 ####Satellite Specialist: GRACIE SUTTON ([phone])[facility])[address] [place] [address] Basic metabolic 1998 panelon 04-30-2025 Anion gap [Moles/Vol] 8 mmol/L 3 - 13 mmol/L [facility] Calcium [Mass/Vol] 8.8 mg/dL 8.8 - 10. 0 mg/dL [facility] Chloride [Moles/Vol] 108 mmol/L High 98 - 10 7 mmol/L [facility] CO2 [Moles/Vol] 20 mmol/L Low 23 - 31 mmol/L [facility] Creatinine [Mass/Vol] 1.02 mg/dL 0.72 - 1.25 mg/dL [facility] GFR/1.73 sq M.predicted (S/P/Bld) [Vol rate/Area] 75.2 mL/min - PINF [facility] Glucose [Mass/Vol] 208 mg/dL High 82 - 115 mg/dL [facility] Interpretation and review of laboratory results Abnormal [facility] Potassium [Moles/Vol] 4.1 mmol/L 3.5 - 5.1 mmol/L [facility] Sodium [Moles/Vol] 136 mmol/L 136 - 145 mmol/L [facility] Urea nitrogen [Mass/Vol] 40 mg/dL High 9 - 23 mg/dL [facility] CBC W Auto Differential pane l (Bld)on 04-30-2025 Basophils (Bld) [#/Vol] 0.1 10*3/uL 0.0 - 0.2 10*3/uL [facility] Basophils/100 WBC (Bld) 0.7 % 0.0 - 2.0 % [facility] Eosinophils (Bld) [#/Vol] 0.2 10*3/uL 0.0 - 0.5 10*3/uL [facility] Eosinophils/100 WBC (Bld) 1.8 % 0.0 - 6.0 % [facility] Erythrocyte distribution width (RBC) [Ratio] 14 % 11.5 - 15.0 % [facility] Hematocrit (Bld) [Volume fraction] 36 % Low 40.0 - 52.0 % [facility] Hemoglobin (Bld) [Mass/Vol] 11.7 g/dL Low 13.0 - 18.0 g/dL [facility] Immature granulocytes (Bld) [#/Vol] 0.1 10*3/uL High NINF - 0.1 10*3/uL [facility] Immature granulocytes/100 WBC (Bld) 0.5 % 0.0 - 2.0 % [email or web address] Interpretation and review of laboratory results Abnormal [email or web address] Lymphocytes (Bld) [#/Vol] 1.5 10*3/uL 1.0 - 4.3 10*3/uL [email or web address] Lymphocytes/100 WBC (Bld) 12.7 % Low 15.0 - 45.0 % [email or web address] MCH (RBC) [Entitic mass] 28.7 pg 26.0 - 34.0 pg [email or web address] MCHC (RBC) [Mass/Vol] 32.5 % 30.5 - 36.0 % [email or web address] MCV (RBC) [Entitic vol] 88.2 fL 77.0 - 99.0 fL [email or web address] Monocytes (Bld) [#/Vol] 1.6 10*3/uL High 0.0 - 0.9 10*3/uL [email or web address] Monocytes/100 WBC (Bld) 13.2 % High 5.0 - 13.0 % [email or web address] Neutrophils (Bld) [#/Vol] 8.5 10*3/uL High 1.8 - 7.5 10*3/uL [email or web address] Neutrophils/100 WBC (Bld) 71.1 % 38.0 - 82.0 % [email or web address] Nucleated RBC/100 WBC (Bld) [Ratio] 0 % [email or web address] Platelet mean volume (Bld) [Entitic vol] 9.6 fL 9.0 - 12.7 fL [email or web address] Platelets (Bld) [#/Vol] 257 10*3/uL 140 - 440 10*3/uL [email or web address] RBC (Bld) [#/Vol] 4.08 10*6/uL Low 4.40 - 5.9 0 10*6/uL [facility] WBC (Bld) [#/Vol] 12 10*3/uL High 3.6 - 10.7 10*3/uL [facility] CBC WITH AUTO DIFFERENTIALon 04-30-2025 Basophils (Bld) [#/Vol] 0.1 10*3/uL Normal 0.0-0.2 [facility] Comment on above: Performed By: #### L [id number] ####Satellite Specialist: GRACIE SUTTON ([phone])[facility] ([address] Basophils/100 WBC (Bld) 0.7 % Normal 0.0-2.0 [facility] Comment on above: Performed By: #### L [id number] ####Satellite Specialist: GRACIE SUTTON ([phone])[facility])[address] [place] [address] Eosinophils (Bld) [#/Vol] 0.2 10*3/uL Normal 0.0-0.5 [facility] Comment on above: Performed By: #### L [id number] ####Satellite Specialist: GRACIE SUTTON ([phone])[facility])[address] [place] [address] Eosinophils/100 WBC (Bld) 1.8 % Normal 0.0-6.0 [facility] Comment on above: Performed By: #### L [id number] ####Satellite Specialist: GRACIE SUTTON ([phone])[facility])[address] [place] [address] Erythrocyte distribution width (RBC) [Ratio] 14.0 % Normal 11.5-15.0 [facility] Comment on above: Performed By: #### L [id number] ####Satellite Specialist: GRACIE SUTTON ([phone])[facility])[address] [place] [address] Hematocrit (Bld) [Volume fraction] 36.0 % Low 40.0-52.0 [facility] Comment on above: Performed By: #### L [id number] ####Satellite Specialist: GRACIE SUTTON ([phone])[facility])[address] [place] [address] Hemoglobin (Bld) [Mass/Vol] 11.7 g/dL Low 13.0-18.0 [facility] Comment on above: Performed By: #### L [id number] ####Satellite Specialist: GRACIE SUTTON ([phone])[facility])[address] [place] [address] IMMATURE GRANS % 0.5 % Normal 0.0-2.0 [facility] Comment on above: Performed By: #### L [id number] ####Satellite Specialist: GRACIE SUTTON ([phone])[facility])[address] [place] [address] IMMATURE GRANS ABSOLUTE 0.1 10*3/uL High <0.1 [facility] Comment on above: Performed By: #### L [id number] ####Satellite Specialist: GRACIE SUTTON ([phone])[facility])[address] [place] [address] Lymphocytes (Bld) [#/Vol] 1.5 10*3/uL Normal 1.0-4.3 [facility] Comment on above: Performed By: #### L [id number] ####Satellite Specialist: GRACIE SUTTON ([phone])[address] Lymphocytes/100 WBC (Bld) 12.7 % Low 15.0-45.0 [facility] Comment on above: Performed By: #### L [id number] ####Satellite Specialist: GRACIE SUTTON ([phone])[facility])[address] [place] [address] MCH (RBC) [Entitic mass] 28.7 pg Normal 26.0-34.0 [facility] Comment on above: Performed By: #### L [id number] ####Satellite Specialist: GRACIE SUTTON ([phone])[address] MCHC 32.5 % Normal 30.5-36.0 [facility] Comment on above: Performed By: #### L [id number] ####Satellite Specialist: GRACIE SUTTON ([phone])[address] MCV (RBC) [Entitic vol] 88.2 fL Normal 77.0-99.0 [facility] Comment on above: Performed By: #### L [id number] ####Satellite Specialist: GRACIE [phone])[facility] ([facility])[address] [place] [address] Monocytes (Bld) [#/Vol] 1.6 10*3/uL High 0.0-0.9 [facility] Comment on above: Performed By: #### L [id number] ####Satellite Specialist: GRACIE SUTTON ([phone])[facility] ([facility])[address] [place] [address] Monocytes/100 WBC (Bld) 13.2 % High 5.0-13.0 [facility] Comment on above: Performed By: #### L [id number] ####Satellite Specialist: GRACIE SUTTON ([phone])[facility] ([facility])[address] [place] [address] NEUTROPHILS ABSOLUTE 8.5 10*3/uL High 1.8-7.5 [facility] Comment on above: Performed By: #### L [id number] ####Satellite Specialist: GRACIE SUTTON ([phone])[facility] ([facility])[address] [place] [address] Neutrophils/100 WBC (Bld) 71.1 % Normal 38.0-82.0 [facility] Comment on above: Performed By: #### L [id number] ####Satellite Specialist: GRACIE SUTTON ([phone])[facility] ([facility])[address] [place] [address] NRBC 0.0 /100 WBCs Normal 0.0-2.0 [facility] Comment on above: Performed By: #### L [id number] ####Satellite Specialist: GRACIE SUTTON ([phone])[facility] ([facility])[address] [place] [address] Platelet mean volume (Bld) [Entitic vol] 9.6 fL Normal 9.0-12.7 [facility] Comment on above: Performed By: #### L [id number] ####Satellite Specialist: GRACIE SUTTON ([phone])[facility] ([facility])[address] [place] [address] [place] Platelets (Bld) [#/Vol] 257 10*3/uL Normal 140-440 [facility] Comment on above: Performed By: #### L [id number] ####Satellite Specialist: GRACIE SUTTON ([phone])[facility] ([facility])[address] [place] [address] RBC (Bld) [#/Vol] 4.08 10*6/uL Low 4.40-5.90 [facility] Comment on above: Performed By: #### L [id number] ####Satellite Specialist: GRACIE SUTTON ([phone])[facility] ([facility])[address] [place] [address] WBC (Bld) [#/Vol] 12.0 10*3/uL High 3.6-10.7 [facility] Comment on above: Performed By: #### L [id number] ####Satellite Specialist: GRACIE SUTTON ([phone])[facility] ([facility])[address] [place] [address] Consulton 04-30-2025 Consult Normal [facility] Laboratory - Chemistry and C hemistry - challengeon 04-30-2025 Glucose [Mass/Vol] 247 mg/dL High 70 - 100 mg/dL [facility] Glucose [Mass/Vol] 169 mg/dL High 70 - 100 mg/dL [facility] Glucose [Mass/Vol] 255 mg/dL High 70 - 100 mg/dL [facility] Glucose [Mass/Vol] 235 mg/dL High 70 - 100 mg/dL [facility] Magnesium [Mass/Vol] 1.8 mg/dL 1.6 - 2 .6 mg/dL [facility] Lower GI hemoglobin spec 1 I A Ql (Stl)Ordered By: Gregoria Vizcarra on 04-30-2025 Fecal occult blood Positive Abnormal Negative [facility] Interpretation and review of laboratory results Abnormal [facility] MAGNESIUMon 04-30-2025 Magnesium [Mass/Vol] 1.8 mg/dL Normal 1.6-2.[address] [facility] Comment on above: Result Comment: TERRELL Ramirez COMMENTS:Higher values can be expected in females during menses. Performed By: #### L AB113, [id number], [id number] ####Satellite Specialist: GRACIE SUTTON ([phone])[facility])[address] [place] [address] [place] Magnesium [Mass/Vol]on 04-30 [facility] No Panel Informationon 04-30 Interpretation and review of laboratory results Abnormal [facility] Interpretation and review of laboratory results Abnormal [facility] Interpretation and review of laboratory results Abnormal [facility] Interpretation and review of laboratory results Abnormal [facility] Interpretation and review of laboratory results Normal [facility] OCCULT BLOOD, STOOLon 2024 OCCULT BLOOD, STOOL FECAL OCCULT, STOOL (A) Reference Positive Negative ORDER COMMENTS: (A) Methodology: Immunoassay Normal [facility] Comment on above: Performed By: #### L [id number] ####Satellite Specialist: GRACIE SUTTON ([phone])[facility] ([facility])[address] [place] [address] [place] PHOSPHORUSon 04-30-2025 Phosphate [Mass/Vol] 3.1 mg/dL Normal 2.3-4.[address] [facility] Comment on above: Performed By: #### L AB113, [id number], LAB15 ####Satellite Specialist: GRACIE SUTTON ([phone])[facility])[address] [place] [address] [place] Phosphate [Moles/Vol]on Phosphate [Mass/Vol] 3.1 mg/dL 2.3 - 4 .7 mg/dL [facility] Progress Noteon 04-30-2025 Progress Note Normal [facility] Progress Note Normal [facility] Progress Note Normal [facility] Progress Note Normal [facility] 30on 04-29-2025 30 Normal [facility] 30 Normal [facility] [id number] 04-29-2025 [id number] Normal [facility] BASIC METABOLIC PANELon Anion gap [Moles/Vol] 10 mmol/L Normal 3-13 [facility] Comment on above: Performed By: #### L AB15, [id number], [id number] ####Satellite Specialist: GRACIE SUTTON ([phone])[facility])[address] [place] [address] Calcium [Mass/Vol] 9.2 mg/dL Normal 8.8-10.0 [facility] Comment on above: Performed By: #### L AB15, [id number], ADN155 ####Satellite Specialist: GRACIE SUTTON ([phone])[facility] ([facility])[address] [place] [address] Chloride [Moles/Vol] 107 mmol/L Normal 98-[address] [facility] Comment on above: Performed By: #### Lisbet AB15, [id number], HQS060 ####Satellite Specialist: GRACIE SUTTON ([phone])[facility] ([facility])[address] [place] [address] CO2 [Moles/Vol] 21 mmol/L Low 23-31 [facility] Comment on above: Performed By: #### Lisbet AB15, XNK408, ZRZ285 ####Satellite Specialist: GRACIE SUTTON ([phone])[facility] ([facility])[address] [place] [address] Creatinine [Mass/Vol] 0.99 mg/dL Normal 0.72-1.25 [facility] Comment on above: Performed By: #### L AB15, [id number], [id number] ####Satellite Specialist: GRACIE SUTTON ([phone])[facility])[address] [place] [address] [place] GLOMERULAR FILTRATION RATE ML/MIN/1.73 SQ M.PREDICTED 78.0 mL/min/1.73m*2 Normal >60.0 [facility] Comment on above: Result Comment: Calc ulation based on the Chronic Kidney Disease Epidemiology Collaboration (CKD-EPI) equation refit without adjustment for race Performed By: #### L AB15, [id number], DFP573 ####Satellite Specialist: GRACIE SUTTON ([phone])[facility])[address] [place] [address] [place] Glucose [Mass/Vol] 192 mg/dL High 82-115 [facility] Comment on above: Performed By: #### L AB15, SLP981, EFP897 ####Satellite Specialist: GRACIE SUTTON ([phone])[facility] ([facility])[address] [place] [address] Potassium [Moles/Vol] 4.1 mmol/L Normal 3.5-5.1 [facility] Comment on above: Result Comment: [facility] potassium values may be up to 0.5 mmol/L lower than serum values. Performed By: #### L AB15, [id number], TWD256 ####Satellite Specialist: GRACEI SUTTON ([phone])[facility] ([facility])[address] [place] [address] Sodium [Moles/Vol] 138 mmol/L Normal 136-145 [facility] Comment on above: Performed By: #### L AB15, [id number], [id number] ####Satellite Specialist: GRACIE SUTTON ([phone])[facility] ([facility])[address] [place] [address] Urea nitrogen [Mass/Vol] 40 mg/dL High 9-23 [facility] Comment on above: Performed By: #### L AB15, [id number], [id number] ####Satellite Specialist: GRACIE SUTTON ([phone])[facility])[address] [place] [address] Basic metabolic 1998 panelon 04-29-2025 Anion gap [Moles/Vol] 10 mmol/L 3 - 13 mmol/L [facility] Calcium [Mass/Vol] 9.2 mg/dL 8.8 - 10. 0 mg/dL [facility] Chloride [Moles/Vol] 107 mmol/L 98 - 10 7 mmol/L [facility] CO2 [Moles/Vol] 21 mmol/L Low 23 - 31 mmol/L [facility] Creatinine [Mass/Vol] 0.99 mg/dL 0.72 - 1.25 mg/dL [facility] GFR/1.73 sq M.predicted (S/P/Bld) [Vol rate/Area] 78 mL/min - PINF [facility] Glucose [Mass/Vol] 192 mg/dL High 82 - 115 mg/dL [facility] Interpretation and review of laboratory results Abnormal [facility] Potassium [Moles/Vol] 4.1 mmol/L 3.5 - 5.1 mmol/L [facility] Sodium [Moles/Vol] 138 mmol/L 136 - 145 mmol/L [facility] Urea nitrogen [Mass/Vol] 40 mg/dL High 9 - 23 mg/dL [facility] CBC W Auto Differential pane l (Bld)on 04-29-2025 Basophils (Bld) [#/Vol] 0.1 10*3/uL 0.0 - 0.2 10*3/uL [facility] Basophils/100 WBC (Bld) 0.6 % 0.0 - 2.0 % [facility] Eosinophils (Bld) [#/Vol] 0.3 10*3/uL 0.0 - 0.5 10*3/uL [facility] Eosinophils/100 WBC (Bld) 2 % 0.0 - 6.0 % [facility] Erythrocyte distribution width (RBC) [Ratio] 14.3 % 11.5 - 15.0 % [facility] Hematocrit (Bld) [Volume fraction] 39.1 % Low 40.0 - 52.0 % [facility] Hemoglobin (Bld) [Mass/Vol] 12.9 g/dL Low 13.0 - 18.0 g/dL [facility] Immature granulocytes (Bld) [#/Vol] 0.1 10*3/uL High NINF - 0.1 10*3/uL [facility] Immature granulocytes/100 WBC (Bld) 0.7 % 0.0 - 2.0 % [facility] Interpretation and review of laboratory results Abnormal [facility] Lymphocytes (Bld) [#/Vol] 1.5 10*3/uL 1.0 - 4.3 10*3/uL [facility] Lymphocytes/100 WBC (Bld) 12.5 % Low 15.0 - 45.0 % [facility] MCH (RBC) [Entitic mass] 29.1 pg 26.0 - 34.0 pg [facility] MCHC (RBC) [Mass/Vol] 33 % 30.5 - 36.0 % [facility] MCV (RBC) [Entitic vol] 88.3 fL 77.0 - 99.0 fL [facility] Monocytes (Bld) [#/Vol] 1.6 10*3/uL High 0.0 - 0.9 10*3/uL [facility] Monocytes/100 WBC (Bld) 13.3 % High 5.0 - 13.0 % [facility] Neutrophils (Bld) [#/Vol] 8.7 10*3/uL High 1.8 - 7.5 10*3/uL [facility] Neutrophils/100 WBC (Bld) 70.9 % 38.0 - 82.0 % [facility] Nucleated RBC/100 WBC (Bld) [Ratio] 0 % [facility] Platelet mean volume (Bld) [Entitic vol] 9.9 fL 9.0 - 12.7 fL [facility] Platelets (Bld) [#/Vol] 261 10*3/uL 140 - 440 10*3/uL [facility] RBC (Bld) [#/Vol] 4.43 10*6/uL 4.40 - 5.9 0 10*6/uL [facility] WBC (Bld) [#/Vol] 12.3 10*3/uL High 3.6 - 10.7 10*3/uL [facility] CBC WITH AUTO DIFFERENTIALon 04-29-2025 Basophils (Bld) [#/Vol] 0.1 10*3/uL Normal 0.0-0.2 [facility] Comment on above: Performed By: #### L [id number] ####Satellite Specialist: GRACIE SUTTON ([phone])[address] Basophils/100 WBC (Bld) 0.6 % Normal 0.0-2.0 [facility] Comment on above: Performed By: #### L [id number] ####Satellite Specialist: GRACIE [phone])[facility] ([facility])[address] [place] [address] Eosinophils (Bld) [#/Vol] 0.3 10*3/uL Normal 0.0-0.5 [facility] Comment on above: Performed By: #### L [id number] ####Satellite Specialist: GRACIE [phone])[facility] [address] Eosinophils/100 WBC (Bld) 2.0 % Normal 0.0-6.0 [facility] Comment on above: Performed By: #### L [id number] ####Satellite Specialist: GRACIE SUTTON ([phone])[facility])[address] [place] [address] Erythrocyte distribution width (RBC) [Ratio] 14.3 % Normal 11.5-15.0 [facility] Comment on above: Performed By: #### L [id number] ####Satellite Specialist: GRACIE SUTTON ([phone])[address] Hematocrit (Bld) [Volume fraction] 39.1 % Low 40.0-52.0 [facility] Comment on above: Performed By: #### L [id number] ####Satellite Specialist: GRACIE SUTTON ([phone])[facility])[address] [place] [address] Hemoglobin (Bld) [Mass/Vol] 12.9 g/dL Low 13.0-18.0 [facility] Comment on above: Performed By: #### L [id number] ####Satellite Specialist: GRACIE SUTTON ([phone])[facility])[address] [place] [address] IMMATURE GRANS % 0.7 % Normal 0.0-2.0 [facility] Comment on above: Performed By: #### L [id number] ####Satellite Specialist: GRACIE SUTTON ([phone])[facility])[address] [place] [address] IMMATURE GRANS ABSOLUTE 0.1 10*3/uL High <0.1 [facility] Comment on above: Performed By: #### L [id number] ####Satellite Specialist: GRACIE SUTTON ([phone])[facility])[address] [place] [address] Lymphocytes (Bld) [#/Vol] 1.5 10*3/uL Normal 1.0-4.3 [facility] Comment on above: Performed By: #### L [id number] ####Satellite Specialist: GRACIE SUTTON ([phone])[facility])[address] [place] [address] Lymphocytes/100 WBC (Bld) 12.5 % Low 15.0-45.0 [facility] Comment on above: Performed By: #### L [id number] ####Satellite Specialist: GRACIE SUTTON ([phone])[facility] ([facility])[address] [place] [address] MCH (RBC) [Entitic mass] 29.1 pg Normal 26.0-34.0 [facility] Comment on above: Performed By: #### L [id number] ####Satellite Specialist: GRACIE SUTTON ([phone])[facility])[address] [place] [address] MCHC 33.0 % Normal 30.5-36.0 [facility] Comment on above: Performed By: #### L [id number] ####Satellite Specialist: GRACIE SUTTON ([phone])[facility])[address] [place] [address] MCV (RBC) [Entitic vol] 88.3 fL Normal 77.0-99.0 [facility] Comment on above: Performed By: #### L [id number] ####Satellite Specialist: GRACIE SUTTON ([phone])[facility])[address] [place] [address] Monocytes (Bld) [#/Vol] 1.6 10*3/uL High 0.0-0.9 [facility] Comment on above: Performed By: #### L [id number] ####Satellite Specialist: GRACIE SUTTON ([phone])[facility])[address] [place] [address] Monocytes/100 WBC (Bld) 13.3 % High 5.0-13.0 [facility] Comment on above: Performed By: #### L [id number] ####Satellite Specialist: GRACIE SUTTON ([phone])[facility] ([facility])[address] [place] [address] NEUTROPHILS ABSOLUTE 8.7 10*3/uL High 1.8-7.5 [facility] Comment on above: Performed By: #### L [id number] ####Satellite Specialist: GRACIE SUTTON ([phone])[facility] ([facility])[address] [place] [address] Neutrophils/100 WBC (Bld) 70.9 % Normal 38.0-82.0 [facility] Comment on above: Performed By: #### L [id number] ####Satellite Specialist: GRACIE SUTTON ([phone])[facility])[address] [place] [address] NRBC 0.0 /100 WBCs Normal 0.0-2.0 [facility] Comment on above: Performed By: #### L [id number] ####Satellite Specialist: GRACIE SUTTON ([phone])[facility] ([facility])[address] [place] [address] Platelet mean volume (Bld) [Entitic vol] 9.9 fL Normal 9.0-12.7 [facility] Comment on above: Performed By: #### L [id number] ####Satellite Specialist: GRACIE SUTTON ([phone])[facility] ([facility])[address] [place] [address] Platelets (Bld) [#/Vol] 261 10*3/uL Normal 140-440 [facility] Comment on above: Performed By: #### L [id number] ####Satellite Specialist: GRACIE SUTTON ([phone])[facility] ([facility])[address] [place] [address] RBC (Bld) [#/Vol] 4.43 10*6/uL Normal 4.40-5.90 [facility] Comment on above: Performed By: #### L [id number] ####Satellite Specialist: GRACIE SUTTON ([phone])[facility] ([facility])[address] [place] [address] WBC (Bld) [#/Vol] 12.3 10*3/uL High 3.6-10.7 [facility] Comment on above: Performed By: #### L [id number] ####Satellite Specialist: GRACIE SUTTON ([phone])[facility] ([facility])[address] [place] [address] Laboratory - Chemistry and C hemistry - challengeon 04-29-2025 Glucose [Mass/Vol] 318 mg/dL High 70 - 100 mg/dL [facility] Glucose [Mass/Vol] 256 mg/dL High 70 - 100 mg/dL [facility] Glucose [Mass/Vol] 275 mg/dL High 70 - 100 mg/dL [facility] Glucose [Mass/Vol] 207 mg/dL High 70 - 100 mg/dL [facility] Magnesium [Mass/Vol] 1.9 mg/dL 1.6 - 2 .6 mg/dL [facility] MAGNESIUMon 04-29-2025 Magnesium [Mass/Vol] 1.9 mg/dL Normal 1.6-2.[address] [facility] Comment on above: Result Comment: TERRELL Ramirez COMMENTS:Higher values can be expected in females during menses. Performed By: #### L AB15, [id number], [id number] ####Satellite Specialist: GRACIE SUTTON ([phone])[facility] ([facility])[address] [place] [address] Magnesium [Mass/Vol]on 04-29 Interpretation and review of laboratory results Normal [facility] No Panel Informationon 04-29 Interpretation and review of laboratory results Abnormal [facility] Interpretation and review of laboratory results Abnormal [facility] Interpretation and review of laboratory results Abnormal [facility] Interpretation and review of laboratory results Abnormal [facility] PHOSPHORUSon 04-29-2025 Phosphate [Mass/Vol] 3.2 mg/dL Normal 2.3-4.[address] [facility] Comment on above: Performed By: #### L AB15, [id number], [id number] ####Satellite Specialist: GRACIE SUTTON ([phone])[facility] ([facility] [place] [address] [place] Phosphate [Moles/Vol]on Interpretation and review of laboratory results Normal [facility] Phosphate [Mass/Vol] 3.2 mg/dL 2.3 - 4 .7 mg/dL [facility] Progress Noteon 04-29-2025 Progress Note Normal [facility] Progress Note Normal [facility] Progress Note Normal [facility] 30on 04-28-2025 30 Normal [facility] [id number] 04-28-2025 [id number] Normal [facility] BASIC METABOLIC PANELon Anion gap [Moles/Vol] 10 mmol/L Normal 3-13 [facility] Comment on above: Performed By: #### L AB15, [id number], [id number] ####Satellite Specialist: GRACIE SUTTON ([phone])[facility] ([facility])[address] [place] [address] [place] Calcium [Mass/Vol] 9.2 mg/dL Normal 8.8-10.0 [facility] Comment on above: Performed By: #### L AB15, [id number], [id number] ####Satellite Specialist: GRACIE SUTOTN ([phone])[facility] ([facility])[address] [place] [address] [place] Chloride [Moles/Vol] 109 mmol/L High 98-107 [facility] Comment on above: Performed By: #### L AB15, [id number], [id number] ####Satellite Specialist: GRACIE SUTTON ([phone])[facility])[address] [place] [address] [place] CO2 [Moles/Vol] 22 mmol/L Low 23-31 [facility] Comment on above: Performed By: #### L AB15, [id number], [id number] ####Satellite Specialist: GRACIE SUTTON ([phone])[facility] ([facility])[address] [place] [address] [place] Creatinine [Mass/Vol] 1.06 mg/dL Normal 0.72-1.25 [facility] Comment on above: Performed By: #### L AB15, [id number], [id number] ####Satellite Specialist: GRACIE SUTTON ([phone])[address] GLOMERULAR FILTRATION RATE ML/MIN/1.73 SQ M.PREDICTED 71.8 mL/min/1.73m*2 Normal >60.0 [facility] Comment on above: Result Comment: Calc ulation based on the Chronic Kidney Disease Epidemiology Collaboration (CKD-EPI) equation refit without adjustment for race Performed By: #### L AB15, [id number], [id number] ####Satellite Specialist: GRACIE SUTTON ([phone])[address] Glucose [Mass/Vol] 195 mg/dL High 82-115 [facility] Comment on above: Performed By: #### L AB15, [id number], [id number] ####Satellite Specialist: GRACIE SUTTON ([phone])[address] Potassium [Moles/Vol] 3.9 mmol/L Normal 3.5-5.1 [facility] Comment on above: Result Comment: [facility] potassium values may be up to 0.5 mmol/L lower than serum values. Performed By: #### L AB15, [id number], [id number] ####Satellite Specialist: GRACIE SUTTON ([phone])[address] Sodium [Moles/Vol] 141 mmol/L Normal 136-145 [facility] Comment on above: Performed By: #### L AB15, [id number], [id number] ####Satellite Specialist: GRACIE [phone])[address] Urea nitrogen [Mass/Vol] 42 mg/dL High 9-23 [facility] Comment on above: Performed By: #### L AB15, GLA807, [id number] ####Satellite Specialist: GRACIE [phone])[facility] ([facility])[address] [place] [address] Basic metabolic 1998 panelon 04-28-2025 Anion gap [Moles/Vol] 10 mmol/L 3 - 13 mmol/L [facility] Calcium [Mass/Vol] 9.2 mg/dL 8.8 - 10. 0 mg/dL [facility] Chloride [Moles/Vol] 109 mmol/L High 98 - 10 7 mmol/L [facility] CO2 [Moles/Vol] 22 mmol/L Low 23 - 31 mmol/L [facility] Creatinine [Mass/Vol] 1.06 mg/dL 0.72 - 1.25 mg/dL [facility] GFR/1.73 sq M.predicted (S/P/Bld) [Vol rate/Area] 71.8 mL/min - PINF [facility] Glucose [Mass/Vol] 195 mg/dL High 82 - 115 mg/dL [facility] Interpretation and review of laboratory results Abnormal [facility] Potassium [Moles/Vol] 3.9 mmol/L 3.5 - 5.1 mmol/L [facility] Sodium [Moles/Vol] 141 mmol/L 136 - 145 mmol/L [facility] Urea nitrogen [Mass/Vol] 42 mg/dL High 9 - 23 mg/dL [facility] CBC W Auto Differential pane l (Bld)on 04-28-2025 Erythrocyte distribution width (RBC) [Ratio] 14.6 % 11.5 - 15.0 % [facility] Hematocrit (Bld) [Volume fraction] 39.2 % Low 40.0 - 52.0 % [facility] Hemoglobin (Bld) [Mass/Vol] 13.1 g/dL 13.0 - 18.0 g/dL [facility] Interpretation and review of laboratory results Abnormal [facility] MCH (RBC) [Entitic mass] 29.4 pg 26.0 - 34.0 pg [facility] MCHC (RBC) [Mass/Vol] 33.4 % 30.5 - 36.0 % [facility] MCV (RBC) [Entitic vol] 88.1 fL 77.0 - 99.0 fL [facility] Platelet mean volume (Bld) [Entitic vol] 10.1 fL 9.0 - 12.7 fL [facility] Platelets (Bld) [#/Vol] 237 10*3/uL 140 - 440 10*3/uL [facility] RBC (Bld) [#/Vol] 4.45 10*6/uL 4.40 - 5.9 0 10*6/uL [facility] WBC (Bld) [#/Vol] 12.8 10*3/uL High 3.6 - 10.7 10*3/uL [facility] CBC WITH AUTO DIFFERENTIALon 04-28-2025 Erythrocyte distribution width (RBC) [Ratio] 14.6 % Normal 11.5-15.0 [facility] Comment on above: Performed By: #### L [id number], [id number] ####Satellite Specialist: GRACIE SUTTON ([phone])[address] Hematocrit (Bld) [Volume fraction] 39.2 % Low 40.0-52.0 [facility] Comment on above: Performed By: #### L [id number], [id number] ####Satellite Specialist: GRACIE SUTTON ([phone])[address] Hemoglobin (Bld) [Mass/Vol] 13.1 g/dL Normal 13.0-18.0 [facility] Comment on above: Performed By: #### L [id number], [id number] ####Satellite Specialist: GRACIE SUTTON ([phone])[address] MCH (RBC) [Entitic mass] 29.4 pg Normal 26.0-34.0 [facility] Comment on above: Performed By: #### L [id number], [id number] ####Satellite Specialist: GRACIE SUTTON ([phone])[address] MCHC 33.4 % Normal 30.5-36.0 [facility] Comment on above: Performed By: #### L [id number], [id number] ####Satellite Specialist: GRACIE [phone])[address] [place] [address] [place] MCV (RBC) [Entitic vol] 88.1 fL Normal 77.0-99.0 S [facility] Comment on above: Performed By: #### L [id number], [id number] ####Satellite Specialist: GRACIE SUTTON ([phone])[facility])[address] [place] [address] Platelet mean volume (Bld) [Entitic vol] 10.1 fL Normal 9.0-12.7 [facility] Comment on above: Performed By: #### L [id number], [id number] ####Satellite Specialist: GRACIE SUTTON ([phone])[facility])[address] [place] [address] Platelets (Bld) [#/Vol] 237 10*3/uL Normal 140-440 [facility] Comment on above: Performed By: #### L [id number], [id number] ####Satellite Specialist: GRACIE STUTON ([phone])[facility] ([facility])[address] [place] [address] RBC (Bld) [#/Vol] 4.45 10*6/uL Normal 4.40-5.90 [facility] Comment on above: Performed By: #### L [id number], [id number] ####Satellite Specialist: GRACIE SUTTON ([phone])[facility])[address] [place] [address] WBC (Bld) [#/Vol] 12.8 10*3/uL High 3.6-10.7 [facility] Comment on above: Performed By: #### L [id number], [id number] ####Satellite Specialist: GRACIE SUTTON ([phone])[facility])[address] [place] [address] CT HEAD WO IV CONTRASTon CT HEAD WO IV CONTRAST Normal [facility] CT Head WO contraston 2024 [facility] Radiology Study observation (narrative) [facility] He alth Consulton 04-28-2025 Consult Normal [facility] Laboratory - Chemistry and C hemistry - challengeon 04-28-2025 Glucose [Mass/Vol] 308 mg/dL High 70 - 100 mg/dL [facility] Glucose [Mass/Vol] 182 mg/dL High 70 - 100 mg/dL [facility] Glucose [Mass/Vol] 211 mg/dL High 70 - 100 mg/dL [facility] Glucose [Mass/Vol] 292 mg/dL High 70 - 100 mg/dL [facility] Glucose [Mass/Vol] 206 mg/dL High 70 - 100 mg/dL [facility] Magnesium [Mass/Vol] 2.1 mg/dL 1.6 - 2 .6 mg/dL [facility] Laboratory - Hematology and Cell countson 04-28-2025 Basophils (Bld) [#/Vol] 0.1 10*3/uL 0.0 - 0.2 10*3/uL [facility] Basophils/100 WBC (Bld) 1 % 0 - 2 % S [facility] cells LM Ql (Bld) Moderate Abnormal (none) [facility] Kenneth cells LM Ql (Bld) Slight Abnormal (none) [facility] Lymphocytes (Bld) [#/Vol] 1.3 10*3/uL 1.0 - 4.3 10*3/uL [facility] Lymphocytes/100 WBC (Bld) 10 % Low 15 - 45 % [facility] Monocytes (Bld) [#/Vol] 1.4 10*3/uL High 0.0 - 0.9 10*3/uL [facility] Monocytes/100 WBC (Bld) 11 % 5 - 13 % [facility] Neutrophils (Bld) [#/Vol] 10 10*3/uL High 1.8 - 7.5 10*3/uL [facility] Poikilocytosis LM Ql (Bld) Moderate Abnormal (none) [facility] RBC morphology finding Nom (Bld) abnormal [facility] Segmented neutrophils/100 WBC (Bld) 78 % 38 - 82 % [facility] MAGNESIUMon 04-28-2025 Magnesium [Mass/Vol] 2.1 mg/dL Normal 1.6-2.[address] [facility] Comment on above: Result Comment: TERRELL Ramirez COMMENTS:Higher values can be expected in females during menses. Performed By: #### L AB15, [id number], [id number] ####Satellite Specialist: GRACIE SUTTON ([phone])[facility])[address] [place] [address] MANUAL DIFFERENTIAL (CELLAVI KELLIE)on 04-28-2025 ACANTHOCYTES (PRESENCE) IN BLOOD BY LIGHT MICROSCOPY Slight Abnormal (none) [facility] Comment on above: Performed By: #### L [id number], [id number] ####Satellite Specialist: GRACIE SUTTON ([phone])[facility] ([facility])[address] [place] [address] [place] BAND NEUTROPHILS TOTAL PER COUNTED LEUKOCYTES BY MANUAL COUNT Normal [facility] Comment on above: Performed By: #### L [id number], [id number] ####Satellite Specialist: GRACIE SUTTON ([phone])[facility] ([facility])[address] [place] [address] BASOPHILS (10*3/UL) IN BLOOD-CELLAVISION 0.1 10*3/uL Normal 0.0-0.2 [facility] Comment on above: Performed By: #### L [id number], [id number] ####Satellite Specialist: GRACIE SUTTON ([phone])[facility] ([facility])[address] [place] [address] [place] BASOPHILS TOTAL PER COUNTED LEUKOCYTES BY MANUAL COUNT 1 Normal [facility] Comment on above: Performed By: #### L [id number], [id number] ####Satellite Specialist: GRACIE SUTTON ([phone])[facility] ([facility])[address] [place] [address] [place] BASOPHILS/100 LEUKOCYTES IN BLOOD-CELLAVISION 1 % Normal 0-2 [facility] Comment on above: Performed By: #### L [id number], [id number] ####Satellite Specialist: GRACIE SUTTON ([phone])[facility])[address] [place] [address] [place] BLASTS TOTAL PER COUNTED LEUKOCYTES BY MANUAL COUNT Normal [facility] Comment on above: Performed By: #### L [id number], [id number] ####Satellite Specialist: GRACIE SUTTON ([phone])[facility] ([facility])[address] [place] [address] [place] KENNETH CELLS PRESENCE IN BLOOD BY LIGHT MICROSCOPY Moderate Abnormal (none) [facility] Comment on above: Performed By: #### L [id number], [id number] ####Satellite Specialist: GRACIE SUTTON ([phone])[facility])[address] [place] [address] [place] EOSINOPHILS TOTAL PER COUNTED LEUKOCYTES BY MANUAL COUNT Normal [facility] Comment on above: Performed By: #### L [id number], [id number] ####Satellite Specialist: GRACIE SUTTON ([phone])[facility] ([facility])[address] [place] [address] [place] LYMPHOCYTES (10*3/UL) IN BLOOD-CELLAVISION 1.3 10*3/uL Normal 1.0-4.3 [facility] Comment on above: Performed By: #### L [id number], [id number] ####Satellite Specialist: GRACIE SUTTON ([phone])[facility])[address] [place] [address] [place] LYMPHOCYTES TOTAL PER COUNTED LEUKOCYTES BY MANUAL COUNT 10 Normal [facility] Comment on above: Performed By: #### L [id number], [id number] ####Satellite Specialist: GRACIE SUTTON ([phone])[facility])[address] [place] [address] [place] LYMPHOCYTES/100 LEUKOCYTES IN BLOOD-CELLAVISION 10 % Low 15-45 [facility] Comment on above: Performed By: #### L [id number], [id number] ####Satellite Specialist: GRACIE SUTTON ([phone])[facility] ([facility])[address] [place] [address] [place] METAMYELOCYTES TOTAL PER COUNTED LEUKOCYTES BY MANUAL COUNT [facility] Comment on above: Performed By: #### L [id number], [id number] ####Satellite Specialist: GRACIE SUTTON ([phone])[facility] ([facility])[address] [place] [address] [place] MONOCYTES (10*3/UL) IN BLOOD-CELLAVISION 1.4 10*3/uL High 0.0-0.9 [facility] Comment on above: Performed By: #### L [id number], [id number] ####Satellite Specialist: GRACIE SUTTON ([phone])[facility] ([facility])[address] [place] [address] [place] MONOCYTES TOTAL PER COUNTED LEUKOCYTES BY MANUAL COUNT 11 Normal [facility] Comment on above: Performed By: #### L [id number], [id number] ####Satellite Specialist: GRACIE SUTTON ([phone])[facility] ([facility])[address] [place] [address] [place] MONOCYTES/100 LEUKOCYTES IN BLOOD-ETHAN 11 % Normal 5-13 [facility] Comment on above: Performed By: #### L [id number], [id number] ####Satellite Specialist: GRACIE SUTTON ([phone])[facility] ([facility])[address] [place] [address] MYELOCYTES COUNTED BY MANUAL COUNT Normal [facility] Comment on above: Performed By: #### Lisbet [id number], [id number] ####Satellite Specialist: GRACIE SUTTON ([phone])[facility] ([facility])[address] [place] [address] [place] NEUTROPHILS TOTAL PER COUNTED LEUKOCYTES BY MANUAL COUNT 79 Normal [facility] Comment on above: Performed By: #### L [id number], [id number] ####Satellite Specialist: GRACIE SUTTON ([phone])[facility] ([facility])[address] [place] [address] [place] POIKILOCYTOSIS (PRESENCE) IN BLOOD BY LIGHT MICROSCOPY Moderate Abnormal (none) [facility] Comment on above: Performed By: #### L [id number], [id number] ####Satellite Specialist: GRACIE SUTTON ([phone])[facility] ([facility])[address] [place] [address] [place] PROMYELOCYTES TOTAL PER COUNTED LEUKOCYTES BY MANUAL COUNT Normal [facility] Comment on above: Performed By: #### L [id number], [id number] ####Satellite Specialist: GRACIE SUTTON ([phone])[facility] ([facility])[address] [place] [address] RBC MORPHOLOGY IN BLOOD abnormal Normal S [facility] Comment on above: Performed By: #### L [id number], [id number] ####Satellite Specialist: GRACIE SUTTON ([phone])[facility] ([facility])[address] [place] [address] SEGMENTED NEUTROPHILS (10*3/UL) IN BLOOD-CELLAVISION 10.0 10*3/uL High 1.8-7.5 [facility] Comment on above: Performed By: #### L [id number], [id number] ####Satellite Specialist: GRACIE SUTTON ([phone])[facility] ([facility])[address] [place] [address] SEGMENTED NEUTROPHILS/100 LEUKOCYTES-CE 78 % Normal 38-82 [facility] Comment on above: Performed By: #### L [id number], [id number] ####Satellite Specialist: GRACIE SUTTON ([phone])[facility] ([facility])[address] [place] [address] UNCLASSIFIED CELLS TOTAL PER COUNTED LEUKOCYTES BY MANUAL COUNT [facility] Comment on above: Performed By: #### L [id number], [id number] ####Satellite Specialist: GRACIE SUTTON ([phone])[facility])[address] [place] [address] VARIANT LYMPHOCYTES TOTAL PER COUNTED LEUKOCYTES BY MANUAL COUNT [facility] Comment on above: Performed By: #### L [id number], [id number] ####Satellite Specialist: GRACIE SUTTON ([phone])[facility])[address] [place] [address] Magnesium [Mass/Vol]on 04-28 [facility] No Panel Informationon 04-28 Interpretation and review of laboratory results Abnormal [facility] Interpretation and review of laboratory results Abnormal [facility] Interpretation and review of laboratory results Abnormal [facility] Interpretation and review of laboratory results Abnormal [facility] Interpretation and review of laboratory results Abnormal [facility] Basophils Manual 1 [facility] Interpretation and review of laboratory results Abnormal [facility] Lymphocytes Manual 10 [facility] Monocytes Manual 11 [facility] Neutrophils Manual 79 [facility] Interpretation and review of laboratory results Normal [facility] Nursing Noteon 04-28-2025 Nursing Note Normal [facility] PHOSPHORUSon 04-28-2025 Phosphate [Mass/Vol] 3.0 mg/dL Normal 2.3-4.[address] [facility] Comment on above: Performed By: #### L AB15, [id number], [id number] ####Satellite Specialist: GRACIE SUTTON ([phone])[facility] ([address] Phosphate [Moles/Vol]on Phosphate [Mass/Vol] 3 mg/dL 2.3 - 4 .7 mg/dL [facility] Progress Noteon 04-28-2025 Progress Note Normal [facility] Progress Note Normal [facility] [id number] 04-27-2025 [id number] Normal [facility] [id number] Notified treatment team of the following - Per [facility] [careport] - We have auth!! MUST admit 04/27 or 04/28. [facility] [phone] Unable to discharge at this time, BP elevated and meds are currently being adjusted, anticipate discharge to [facility] over the weekend, weekend DP tasked to follow Normal [facility] [id number] Normal [facility] BASIC METABOLIC PANELon Anion gap [Moles/Vol] 7 mmol/L Normal 3-13 [facility] Comment on above: Performed By: #### L AB113, [id number], LAB15 ####Satellite Specialist: GRACIE SUTTON ([phone])[facility] [place] [address] Calcium [Mass/Vol] 9.2 mg/dL Normal 8.8-10.0 [facility] Comment on above: Performed By: #### L AB113, [id number], LAB15 ####Satellite Specialist: GRACIE SUTTON ([phone])[facility] [place] [address] [place] Chloride [Moles/Vol] 111 mmol/L High 98-[address] [facility] Comment on above: Performed By: #### L AB113, [id number], LAB15 ####Satellite Specialist: GRACIE SUTTON ([phone])[facility] ([facility])[address] [place] [address] CO2 [Moles/Vol] 22 mmol/L Low 23-31 [facility] Comment on above: Performed By: #### L AB113, [id number], LAB15 ####Satellite Specialist: GRACIE SUTTON ([phone])[facility] ([facility])[address] [place] [address] Creatinine [Mass/Vol] 1.05 mg/dL Normal 0.72-1.25 [facility] Comment on above: Performed By: #### L AB113, [id number], LAB15 ####Satellite Specialist: GRACIE SUTTON ([phone])[facility] ([facility])[address] [place] [address] [place] GLOMERULAR FILTRATION RATE ML/MIN/1.73 SQ M.PREDICTED 72.7 mL/min/1.73m*2 Normal >60.0 [facility] Comment on above: Result Comment: Calc ulation based on the Chronic Kidney Disease Epidemiology Collaboration (CKD-EPI) equation refit without adjustment for race Performed By: #### L AB113, [id number], LAB15 ####Satellite Specialist: GRACIE SUTTON ([phone])[facility] ([facility])[address] [place] [address] [place] Glucose [Mass/Vol] 203 mg/dL High 82-115 [facility] Comment on above: Performed By: #### L AB113, [id number], LAB15 ####Satellite Specialist: GRACIE SUTTON ([phone])[facility] ([facility])[address] [place] [address] Potassium [Moles/Vol] 4.1 mmol/L Normal 3.5-5.1 [facility] Comment on above: Result Comment: [facility] potassium values may be up to 0.5 mmol/L lower than serum values. Performed By: #### L AB113, JPA113, LAB15 ####Satellite Specialist: GRACIE SUTTON ([phone])[facility] [place] [address] Sodium [Moles/Vol] 140 mmol/L Normal 136-145 [facility] Comment on above: Performed By: #### L AB113, [id number], LAB15 ####Satellite Specialist: GRACIE SUTTON ([phone])[facility] ([facility])[address] [place] [address] Urea nitrogen [Mass/Vol] 38 mg/dL High 9-23 [facility] Comment on above: Performed By: #### L AB113, [id number], [id number] ####Satellite Specialist: GRACIE SUTTON ([phone])[facility])[address] [place] [address] Basic metabolic 1998 panelon 04-27-2025 Anion gap [Moles/Vol] 7 mmol/L 3 - 13 mmol/L [facility] Calcium [Mass/Vol] 9.2 mg/dL 8.8 - 10. 0 mg/dL [facility] Chloride [Moles/Vol] 111 mmol/L High 98 - 10 7 mmol/L [facility] CO2 [Moles/Vol] 22 mmol/L Low 23 - 31 mmol/L [facility] Creatinine [Mass/Vol] 1.05 mg/dL 0.72 - 1.25 mg/dL [facility] GFR/1.73 sq M.predicted (S/P/Bld) [Vol rate/Area] 72.7 mL/min - PINF [facility] Glucose [Mass/Vol] 203 mg/dL High 82 - 115 mg/dL [facility] Interpretation and review of laboratory results Abnormal [facility] Potassium [Moles/Vol] 4.1 mmol/L 3.5 - 5.1 mmol/L [facility] Sodium [Moles/Vol] 140 mmol/L 136 - 145 mmol/L [facility] Urea nitrogen [Mass/Vol] 38 mg/dL High 9 - 23 mg/dL [facility] CBC W Auto Differential pane l (Bld)Ordered By: Yayo Champagne on 04-27-2025 Basophils (Bld) [#/Vol] 0.1 10*3/uL 0.0 - 0.2 10*3/uL [facility] Basophils/100 WBC (Bld) 0.5 % 0.0 - 2.0 % [facility] Eosinophils (Bld) [#/Vol] 0.1 10*3/uL 0.0 - 0.5 10*3/uL [facility] Eosinophils/100 WBC (Bld) 0.5 % 0.0 - 6.0 % [facility] Erythrocyte distribution width (RBC) [Ratio] 14.6 % 11.5 - 15.0 % [facility] Hematocrit (Bld) [Volume fraction] 39.4 % Low 40.0 - 52.0 % [facility] Hemoglobin (Bld) [Mass/Vol] 13.2 g/dL 13.0 - 18.0 g/dL [facility] Immature granulocytes (Bld) [#/Vol] 0.1 10*3/uL High NINF - 0.1 10*3/uL [facility] Immature granulocytes/100 WBC (Bld) 0.5 % 0.0 - 2.0 % [facility] Interpretation and review of laboratory results Abnormal [facility] Lymphocytes (Bld) [#/Vol] 1.4 10*3/uL 1.0 - 4.3 10*3/uL [facility] Lymphocytes/100 WBC (Bld) 10.4 % Low 15.0 - 45.0 % [facility] MCH (RBC) [Entitic mass] 29.5 pg 26.0 - 34.0 pg [facility] MCHC (RBC) [Mass/Vol] 33.5 % 30.5 - 36.0 % [facility] MCV (RBC) [Entitic vol] 87.9 fL 77.0 - 99.0 fL [facility] Monocytes (Bld) [#/Vol] 2 10*3/uL High 0.0 - 0.9 10*3/uL [facility] Monocytes/100 WBC (Bld) 15.7 % High 5.0 - 13.0 % [facility] Neutrophils (Bld) [#/Vol] 9.4 10*3/uL High 1.8 - 7.5 10*3/uL [facility] Neutrophils/100 WBC (Bld) 72.4 % 38.0 - 82.0 % [facility] Nucleated RBC/100 WBC (Bld) [Ratio] 0 % [facility] Platelet mean volume (Bld) [Entitic vol] 10.4 fL 9.0 - 12.7 fL [facility] Platelets (Bld) [#/Vol] 231 10*3/uL 140 - 440 10*3/uL [facility] RBC (Bld) [#/Vol] 4.48 10*6/uL 4.40 - 5.9 0 10*6/uL [facility] WBC (Bld) [#/Vol] 13 10*3/uL High 3.6 - 10.7 10*3/uL [facility] CBC WITH AUTO DIFFERENTIALon 04-27-2025 Basophils (Bld) [#/Vol] 0.1 10*3/uL Normal 0.0-0.2 [facility] Comment on above: Performed By: #### L [id number] ####Satellite Specialist: GRACIE SUTTON ([phone])[facility] ([facility])[address] [place] [address] Basophils/100 WBC (Bld) 0.5 % Normal 0.0-2.0 [facility] Comment on above: Performed By: #### L [id number] ####Satellite Specialist: GRACIE SUTTON ([phone])[facility] ([facility])[address] [place] [address] [place] Eosinophils (Bld) [#/Vol] 0.1 10*3/uL Normal 0.0-0.5 [facility] Comment on above: Performed By: #### L [id number] ####Satellite Specialist: GRACIE SUTTON ([phone])[facility] ([facility])[address] [place] [address] [place] Eosinophils/100 WBC (Bld) 0.5 % Normal 0.0-6.0 [facility] Comment on above: Performed By: #### L [id number] ####Satellite Specialist: GRACIE SUTTON ([phone])[address] Erythrocyte distribution width (RBC) [Ratio] 14.6 % Normal 11.5-15.0 [facility] Comment on above: Performed By: #### L [id number] ####Satellite Specialist: GRACIE SUTTON ([phone])[address] Hematocrit (Bld) [Volume fraction] 39.4 % Low 40.0-52.0 [facility] Comment on above: Performed By: #### L [id number] ####Satellite Specialist: GRACIE SUTTON ([phone])[address] Hemoglobin (Bld) [Mass/Vol] 13.2 g/dL Normal 13.0-18.0 [facility] Comment on above: Performed By: #### L [id number] ####Satellite Specialist: GRACIE SUTTON ([phone])[address] IMMATURE GRANS % 0.5 % Normal 0.0-2.0 [facility] Comment on above: Performed By: #### L [id number] ####Satellite Specialist: GRACIE SUTTON ([phone])[address] IMMATURE GRANS ABSOLUTE 0.1 10*3/uL High <0.1 [facility] Comment on above: Performed By: #### L [id number] ####Satellite Specialist: GRACIE SUTTON ([phone])[address] Lymphocytes (Bld) [#/Vol] 1.4 10*3/uL Normal 1.0-4.3 [facility] Comment on above: Performed By: #### L [id number] ####Satellite Specialist: GRACIE SUTTON ([phone])[facility])[address] [place] [address] Lymphocytes/100 WBC (Bld) 10.4 % Low 15.0-45.0 [facility] Comment on above: Performed By: #### L [id number] ####Satellite Specialist: GRACIE SUTTON ([phone])[facility])[address] [place] [address] MCH (RBC) [Entitic mass] 29.5 pg Normal 26.0-34.0 [facility] Comment on above: Performed By: #### L [id number] ####Satellite Specialist: GRACIE SUTTON ([phone])[facility])[address] [place] [address] MCHC 33.5 % Normal 30.5-36.0 [facility] Comment on above: Performed By: #### L [id number] ####Satellite Specialist: GRACIE SUTTON ([phone])[facility])[address] [place] [address] MCV (RBC) [Entitic vol] 87.9 fL Normal 77.0-99.0 [facility] Comment on above: Performed By: #### L [id number] ####Satellite Specialist: GRACIE SUTTON ([phone])[facility])[address] [place] [address] Monocytes (Bld) [#/Vol] 2.0 10*3/uL High 0.0-0.9 [facility] Comment on above: Performed By: #### L [id number] ####Satellite Specialist: GRACIE SUTTON ([phone])[facility])[address] [place] [address] Monocytes/100 WBC (Bld) 15.7 % High 5.0-13.0 [facility] Comment on above: Performed By: #### L [id number] ####Satellite Specialist: GRACIE SUTTON ([phone])[facility])[address] [place] [address] NEUTROPHILS ABSOLUTE 9.4 10*3/uL High 1.8-7.5 [facility] Comment on above: Performed By: #### L [id number] ####Satellite Specialist: GRACIE SUTTON ([phone])[facility] ([facility])[address] [place] [address] Neutrophils/100 WBC (Bld) 72.4 % Normal 38.0-82.0 [facility] Comment on above: Performed By: #### L [id number] ####Satellite Specialist: GRACIE SUTTON ([phone])[facility] ([facility])[address] [place] [address] NRBC 0.0 /100 WBCs Normal 0.0-2.0 [facility] Comment on above: Performed By: #### L [id number] ####Satellite Specialist: GRACIE SUTTON ([phone])[facility] ([facility])[address] [place] [address] Platelet mean volume (Bld) [Entitic vol] 10.4 fL Normal 9.0-12.7 [facility] Comment on above: Performed By: #### L [id number] ####Satellite Specialist: GRACIE SUTTON ([phone])[facility] ([facility])[address] [place] [address] Platelets (Bld) [#/Vol] 231 10*3/uL Normal 140-440 [facility] Comment on above: Performed By: #### L [id number] ####Satellite Specialist: GRACIE SUTTON ([phone])[facility] ([facility])[address] [place] [address] [place] RBC (Bld) [#/Vol] 4.48 10*6/uL Normal 4.40-5.90 [facility] Comment on above: Performed By: #### L [id number] ####Satellite Specialist: GRACIE SUTTON ([phone])[facility] ([facility])[address] [place] [address] [place] WBC (Bld) [#/Vol] 13.0 10*3/uL High 3.6-10.7 [facility] Comment on above: Performed By: #### L [id number] ####Satellite Specialist: GRACIE SUTTON ([phone])[facility])[address] [place] [address] Laboratory - Chemistry and C hemistry - challengeon 04-27-2025 Glucose [Mass/Vol] 188 mg/dL High 70 - 100 mg/dL [facility] Glucose [Mass/Vol] 222 mg/dL High 70 - 100 mg/dL [facility] Glucose [Mass/Vol] 219 mg/dL High 70 - 100 mg/dL [facility] Magnesium [Mass/Vol] 2.1 mg/dL 1.6 - 2 .6 mg/dL [facility] MAGNESIUMon 04-27-2025 Magnesium [Mass/Vol] 2.1 mg/dL Normal 1.6-2.[address] [facility] Comment on above: Result Comment: TERRELL Ramirez COMMENTS:Higher values can be expected in females during menses. Performed By: #### L AB113, [id number], [id number] ####Satellite Specialist: GRACIE SUTTON ([phone])[facility] ([facility])[address] [place] [address] [place] Magnesium [Mass/Vol]on 04-27 [facility] No Panel Informationon 04-27 Interpretation and review of laboratory results Abnormal [facility] Interpretation and review of laboratory results Abnormal [facility] Interpretation and review of laboratory results Abnormal [facility] Interpretation and review of laboratory results Normal [facility] PHOSPHORUSon 04-27-2025 Phosphate [Mass/Vol] 2.8 mg/dL Normal 2.3-4.[address] [facility] Comment on above: Performed By: #### L AB113, [id number], LAB15 ####Satellite Specialist: GRACIE SUTTON ([phone])[facility] ([facility])[address] [place] [address] [place] Phosphate [Moles/Vol]on Phosphate [Mass/Vol] 2.8 mg/dL 2.3 - 4 .7 mg/dL [facility] Progress Noteon 04-27-2025 Progress Note Normal [facility] Progress Note Normal [facility] 30on 04-26-2025 30 Patient working 0n going to [facility] Normal [facility] 30 Normal [facility] [id number] 04-26-2025 [id number] PT/OT therapy evals complete - both rec return to [facility]/Memory care, pt to be discharged back to [facility]/memory care with spouse, hhc following for needs at this time [facility] [phone] Transport requested in [employer] for will call. Per TCC request. [facility] [phone] Tasked [employer] to setup will call [facility] auth [facility] [phone] [facility] [phone] Normal [facility] BASIC METABOLIC PANELon 07 Anion gap [Moles/Vol] 14 mmol/L High 3-13 [facility] Comment on above: Performed By: #### L AB15, [id number], [id number] ####Satellite Specialist: GRACIE SUTTON ([phone])[address] Calcium [Mass/Vol] 9.3 mg/dL Normal 8.8-10.0 [facility] Comment on above: Performed By: #### L AB15, [id number], [id number] ####Satellite Specialist: GRACIE SUTTON ([phone])[facility] ([facility])[address] [place] [address] [place] Chloride [Moles/Vol] 111 mmol/L High 98-[address] [facility] Comment on above: Performed By: #### L AB15, [id number], [id number] ####Satellite Specialist: GRACIE USTTON ([phone])[facility])[address] [place] [address] CO2 [Moles/Vol] 19 mmol/L Low 23-31 [facility] Comment on above: Performed By: #### L AB15, [id number], [id number] ####Satellite Specialist: GRACIE SUTTON ([phone])[facility])[address] [place] [address] Creatinine [Mass/Vol] 1.02 mg/dL Normal 0.72-1.25 [facility] Comment on above: Performed By: #### L AB15, [id number], [id number] ####Satellite Specialist: GRACIE SUTTON ([phone])[facility])[address] [place] [address] GLOMERULAR FILTRATION RATE ML/MIN/1.73 SQ M.PREDICTED 75.2 mL/min/1.73m*2 Normal >60.0 [facility] Comment on above: Result Comment: Calc ulation based on the Chronic Kidney Disease Epidemiology Collaboration (CKD-EPI) equation refit without adjustment for race Performed By: #### L AB15, [id number], [id number] ####Satellite Specialist: GRACIE SUTTON ([phone])[facility] ([facility])[address] [place] [address] Glucose [Mass/Vol] 187 mg/dL High 82-115 [facility] Comment on above: Performed By: #### L AB15, [id number], [id number] ####Satellite Specialist: GRACIE SUTTON ([phone])[facility])[address] [place] [address] Potassium [Moles/Vol] 4.1 mmol/L Normal 3.5-5.1 [facility] Comment on above: Result Comment: [facility] potassium values may be up to 0.5 mmol/L lower than serum values. Performed By: #### L AB15, [id number], IAL933 ####Satellite Specialist: GRACIE SUTTON ([phone])[facility] ([facility])[address] [place] [address] Sodium [Moles/Vol] 144 mmol/L Normal 136-145 [facility] Comment on above: Performed By: #### L AB15, [id number], [id number] ####Satellite Specialist: GRACIE SUTTON ([phone])[facility] ([facility])[address] [place] [address] Urea nitrogen [Mass/Vol] 38 mg/dL High 9-23 [facility] Comment on above: Performed By: #### L AB15, [id number], [id number] ####Satellite Specialist: GRACIE SUTTON ([phone])[facility] ([facility])[address] [place] [address] Basic metabolic 1998 panelon 04-26-2025 Anion gap [Moles/Vol] 14 mmol/L High 3 - 13 mmol/L [facility] Calcium [Mass/Vol] 9.3 mg/dL 8.8 - 10. 0 mg/dL [facility] Chloride [Moles/Vol] 111 mmol/L High 98 - 10 7 mmol/L [facility] CO2 [Moles/Vol] 19 mmol/L Low 23 - 31 mmol/L [facility] Creatinine [Mass/Vol] 1.02 mg/dL 0.72 - 1.25 mg/dL [facility] GFR/1.73 sq M.predicted (S/P/Bld) [Vol rate/Area] 75.2 mL/min - PINF [facility] Glucose [Mass/Vol] 187 mg/dL High 82 - 115 mg/dL [facility] Interpretation and review of laboratory results Abnormal [facility] Potassium [Moles/Vol] 4.1 mmol/L 3.5 - 5.1 mmol/L [facility] Sodium [Moles/Vol] 144 mmol/L 136 - 145 mmol/L [facility] Urea nitrogen [Mass/Vol] 38 mg/dL High 9 - 23 mg/dL [facility] CBC W Auto Differential pane l (Bld)Ordered By: Windy Wright on 04-26-2025 Basophils (Bld) [#/Vol] 0.1 10*3/uL 0.0 - 0.2 10*3/uL [facility] Basophils/100 WBC (Bld) 0.3 % 0.0 - 2.0 % [facility] Eosinophils (Bld) [#/Vol] 0 10*3/uL 0.0 - 0.5 10*3/uL [facility] Eosinophils/100 WBC (Bld) 0.1 % 0.0 - 6.0 % [facility] Erythrocyte distribution width (RBC) [Ratio] 14.6 % 11.5 - 15.0 % [facility] Hematocrit (Bld) [Volume fraction] 41.2 % 40.0 - 52.0 % [facility] Hemoglobin (Bld) [Mass/Vol] 13.7 g/dL 13.0 - 18.0 g/dL [facility] Immature granulocytes (Bld) [#/Vol] 0.1 10*3/uL High NINF - 0.1 10*3/uL [facility] Immature granulocytes/100 WBC (Bld) 0.5 % 0.0 - 2.0 % [facility] Interpretation and review of laboratory results Abnormal [facility] Lymphocytes (Bld) [#/Vol] 1.1 10*3/uL 1.0 - 4.3 10*3/uL [facility] Lymphocytes/100 WBC (Bld) 7.2 % Low 15.0 - 45.0 % [facility] MCH (RBC) [Entitic mass] 29.2 pg 26.0 - 34.0 pg [facility] MCHC (RBC) [Mass/Vol] 33.3 % 30.5 - 36.0 % [facility] MCV (RBC) [Entitic vol] 87.8 fL 77.0 - 99.0 fL [facility] Monocytes (Bld) [#/Vol] 1.8 10*3/uL High 0.0 - 0.9 10*3/uL [facility] Monocytes/100 WBC (Bld) 12.1 % 5.0 - 13.0 % [facility] Neutrophils (Bld) [#/Vol] 11.7 10*3/uL High 1.8 - 7.5 10*3/uL [facility] Neutrophils/100 WBC (Bld) 79.8 % 38.0 - 82.0 % [facility] Nucleated RBC/100 WBC (Bld) [Ratio] 0 % [facility] Platelet mean volume (Bld) [Entitic vol] 9.9 fL 9.0 - 12.7 fL [facility] Platelets (Bld) [#/Vol] 219 10*3/uL 140 - 440 10*3/uL [facility] RBC (Bld) [#/Vol] 4.69 10*6/uL 4.40 - 5.9 0 10*6/uL [facility] WBC (Bld) [#/Vol] 14.6 10*3/uL High 3.6 - 10.7 10*3/uL [facility] CBC WITH AUTO DIFFERENTIALon 04-26-2025 Basophils (Bld) [#/Vol] 0.1 10*3/uL Normal 0.0-0.2 [facility] Comment on above: Performed By: #### L [id number] ####Satellite Specialist: GRACIE SUTTON ([phone])[facility] ([facility])[address] [place] [address] Basophils/100 WBC (Bld) 0.3 % Normal 0.0-2.0 [facility] Comment on above: Performed By: #### L [id number] ####Satellite Specialist: GRACIE SUTTON ([phone])[facility])[address] [place] [address] Eosinophils (Bld) [#/Vol] 0.0 10*3/uL Normal 0.0-0.5 [facility] Comment on above: Performed By: #### L [id number] ####Satellite Specialist: GRACIE SUTTON ([phone])[facility])[address] [place] [address] Eosinophils/100 WBC (Bld) 0.1 % Normal 0.0-6.0 [facility] Comment on above: Performed By: #### L [id number] ####Satellite Specialist: GRACIE SUTTON ([phone])[facility])[address] [place] [address] Erythrocyte distribution width (RBC) [Ratio] 14.6 % Normal 11.5-15.0 [facility] Comment on above: Performed By: #### L [id number] ####Satellite Specialist: GRACIE SUTTON ([phone])[facility])[address] [place] [address] Hematocrit (Bld) [Volume fraction] 41.2 % Normal 40.0-52.0 [facility] Comment on above: Performed By: #### L [id number] ####Satellite Specialist: GRACIE SUTTON ([phone])[facility])[address] [place] [address] Hemoglobin (Bld) [Mass/Vol] 13.7 g/dL Normal 13.0-18.0 [facility] Comment on above: Performed By: #### L [id number] ####Satellite Specialist: GRACIE SUTTON ([phone])[facility])[address] [place] [address] IMMATURE GRANS % 0.5 % Normal 0.0-2.0 [facility] Comment on above: Performed By: #### L [id number] ####Satellite Specialist: GRACIE SUTTON ([phone])[facility])[address] [place] [address] IMMATURE GRANS ABSOLUTE 0.1 10*3/uL High <0.1 [facility] Comment on above: Performed By: #### L [id number] ####Satellite Specialist: GRACIE SUTTON ([phone])[facility] ([facility])[address] [place] [address] Lymphocytes (Bld) [#/Vol] 1.1 10*3/uL Normal 1.0-4.3 [facility] Comment on above: Performed By: #### L [id number] ####Satellite Specialist: GRACIE SUTTON ([phone])[facility])[address] [place] [address] Lymphocytes/100 WBC (Bld) 7.2 % Low 15.0-45.0 [facility] Comment on above: Performed By: #### L [id number] ####Satellite Specialist: GRACIE SUTTON ([phone])[facility])[address] [place] [address] MCH (RBC) [Entitic mass] 29.2 pg Normal 26.0-34.0 [facility] Comment on above: Performed By: #### L [id number] ####Satellite Specialist: GRACIE [phone])[facility] ([facility])[address] [place] [address] MCHC 33.3 % Normal 30.5-36.0 [facility] Comment on above: Performed By: #### L [id number] ####Satellite Specialist: GRACIE SUTTON ([phone])[facility] ([facility])[address] [place] [address] MCV (RBC) [Entitic vol] 87.8 fL Normal 77.0-99.0 [facility] Comment on above: Performed By: #### L [id number] ####Satellite Specialist: GRACIE SUTTON ([phone])[facility] ([facility])[address] [place] [address] Monocytes (Bld) [#/Vol] 1.8 10*3/uL High 0.0-0.9 [facility] Comment on above: Performed By: #### L [id number] ####Satellite Specialist: GRACIE SUTTON ([phone])[facility] ([facility])[address] [place] [address] Monocytes/100 WBC (Bld) 12.1 % Normal 5.0-13.0 [facility] Comment on above: Performed By: #### L [id number] ####Satellite Specialist: GRACIE SUTTON ([phone])[facility] ([facility])[address] [place] [address] NEUTROPHILS ABSOLUTE 11.7 10*3/uL High 1.8-7.5 [facility] Comment on above: Performed By: #### L [id number] ####Satellite Specialist: GRACIE SUTTON ([phone])[facility] ([facility])[address] [place] [address] Neutrophils/100 WBC (Bld) 79.8 % Normal 38.0-82.0 [facility] Comment on above: Performed By: #### L [id number] ####Satellite Specialist: GRACIE SUTTON ([phone])[facility] ([facility])[address] [place] [address] NRBC 0.0 /100 WBCs Normal 0.0-2.0 [facility] Comment on above: Performed By: #### L [id number] ####Satellite Specialist: GRACIE SUTTON ([phone])[facility] ([facility])[address] [place] [address] Platelet mean volume (Bld) [Entitic vol] 9.9 fL Normal 9.0-12.7 [facility] Comment on above: Performed By: #### L [id number] ####Satellite Specialist: GRACIE SUTTON ([phone])[facility] ([facility])[address] [place] [address] Platelets (Bld) [#/Vol] 219 10*3/uL Normal 140-440 [facility] Comment on above: Performed By: #### L [id number] ####Satellite Specialist: GRACIE SUTTON ([phone])[facility] ([facility])[address] [place] [address] RBC (Bld) [#/Vol] 4.69 10*6/uL Normal 4.40-5.90 [facility] Comment on above: Performed By: #### L [id number] ####Satellite Specialist: GRACIE SUTTON ([phone])[facility] ([facility])[address] [place] [address] WBC (Bld) [#/Vol] 14.6 10*3/uL High 3.6-10.7 [facility] Comment on above: Performed By: #### L [id number] ####Satellite Specialist: GRACIE SUTTON ([phone])[facility] ([facility])[address] [place] [address] Laboratory - Chemistry and C hemistry - challengeon 04-26-2025 Glucose [Mass/Vol] 323 mg/dL High 70 - 100 mg/dL [facility] Glucose [Mass/Vol] 190 mg/dL High 70 - 100 mg/dL [facility] Glucose [Mass/Vol] 220 mg/dL High 70 - 100 mg/dL [facility] Glucose [Mass/Vol] 173 mg/dL High 70 - 100 mg/dL [facility] Magnesium [Mass/Vol] 2.2 mg/dL 1.6 - 2 .6 mg/dL [facility] MAGNESIUMon 04-26-2025 Magnesium [Mass/Vol] 2.2 mg/dL Normal 1.6-2.[address] [facility] Comment on above: Result Comment: TERRELL Ramirez COMMENTS:Higher values can be expected in females during menses. Performed By: #### L AB15, [id number], [id number] ####Satellite Specialist: GRACIE SUTTON ([phone])[facility])[address] [place] [address] Magnesium [Mass/Vol]on 04-26 Interpretation and review of laboratory results Normal [facility] No Panel Informationon 04-26 Interpretation and review of laboratory results Abnormal [facility] Interpretation and review of laboratory results Abnormal [facility] Interpretation and review of laboratory results Abnormal [facility] Interpretation and review of laboratory results Abnormal [facility] PHOSPHORUSon 04-26-2025 Phosphate [Mass/Vol] 4.0 mg/dL Normal 2.3-4.[address] [facility] Comment on above: Performed By: #### L AB15, [id number], [id number] ####Satellite Specialist: GRACIE SUTTON ([phone])[facility] ([facility])[address] [place] [address] Phosphate [Moles/Vol]on Interpretation and review of laboratory results Normal [facility] Phosphate [Mass/Vol] 4 mg/dL 2.3 - 4 .7 mg/dL [facility] Progress Noteon 04-26-2025 Progress Note Normal [facility] Progress Note Normal [facility] Progress Note Normal [facility] Progress Note Normal [facility] 30on 04-25-2025 30 Normal [facility] [id number] 04-25-2025 [id number] Normal [facility] BASIC METABOLIC PANELon Anion gap [Moles/Vol] 9 mmol/L Normal 3-13 [facility] Comment on above: Performed By: #### L AB113, LAB15, [id number] ####Satellite Specialist: GRACIE SUTTON ([phone])[facility] [place] [address] Calcium [Mass/Vol] 9.5 mg/dL Normal 8.8-10.0 [facility] Comment on above: Performed By: #### L AB113, LAB15, [id number] ####Satellite Specialist: GRACIE SUTTON ([phone])[facility] [place] [address] Chloride [Moles/Vol] 107 mmol/L Normal 98-[address] [facility] Comment on above: Performed By: #### L AB113, LAB15, [id number] ####Satellite Specialist: GRACIE SUTTON ([phone])[facility] [place] [address] CO2 [Moles/Vol] 21 mmol/L Low 23-31 [facility] Comment on above: Performed By: #### L AB113, LAB15, [id number] ####Satellite Specialist: GRACIE SUTTON ([phone])[facility] ([facility])[address] [place] [address] Creatinine [Mass/Vol] 1.02 mg/dL Normal 0.72-1.25 [facility] Comment on above: Performed By: #### L AB113, LAB15, [id number] ####Satellite Specialist: GRACIE SUTTON ([phone])[facility] ([facility])[address] [place] [address] [place] GLOMERULAR FILTRATION RATE ML/MIN/1.73 SQ M.PREDICTED 75.2 mL/min/1.73m*2 Normal >60.0 [facility] Comment on above: Result Comment: Calc ulation based on the Chronic Kidney Disease Epidemiology Collaboration (CKD-EPI) equation refit without adjustment for race Performed By: #### L AB113, LAB15, [id number] ####Satellite Specialist: GRACIE SUTTON ([phone])[facility] ([facility])[address] [place] [address] [place] Glucose [Mass/Vol] 160 mg/dL High 82-115 [facility] Comment on above: Performed By: #### L AB113, LAB15, [id number] ####Satellite Specialist: GRACIE SUTTON ([phone])[facility] ([facility])[address] [place] [address] Potassium [Moles/Vol] 3.8 mmol/L Normal 3.5-5.1 [facility] Comment on above: Result Comment: [facility] potassium values may be up to 0.5 mmol/L lower than serum values. Performed By: #### L AB113, LAB15, [id number] ####Satellite Specialist: GRACIE SUTTON ([phone])[facility] ([facility])[address] [place] [address] Sodium [Moles/Vol] 137 mmol/L Normal 136-145 [facility] Comment on above: Performed By: #### L AB113, LAB15, [id number] ####Satellite Specialist: GRACIE SUTTON ([phone])[facility] ([facility])[address] [place] [address] Urea nitrogen [Mass/Vol] 31 mg/dL High 9-23 [facility] Comment on above: Performed By: #### L AB113, LAB15, [id number] ####Satellite Specialist: GRACIE SUTTON ([phone])[facility] ([facility])[address] [place] [address] Basic metabolic 1998 panelon 04-25-2025 Anion gap [Moles/Vol] 9 mmol/L 3 - 13 mmol/L [facility] Calcium [Mass/Vol] 9.5 mg/dL 8.8 - 10. 0 mg/dL [facility] Chloride [Moles/Vol] 107 mmol/L 98 - 10 7 mmol/L [facility] CO2 [Moles/Vol] 21 mmol/L Low 23 - 31 mmol/L [facility] Creatinine [Mass/Vol] 1.02 mg/dL 0.72 - 1.25 mg/dL [facility] GFR/1.73 sq M.predicted (S/P/Bld) [Vol rate/Area] 75.2 mL/min - PINF [facility] Glucose [Mass/Vol] 160 mg/dL High 82 - 115 mg/dL [facility] Interpretation and review of laboratory results Abnormal [facility] Potassium [Moles/Vol] 3.8 mmol/L 3.5 - 5.1 mmol/L [facility] Sodium [Moles/Vol] 137 mmol/L 136 - 145 mmol/L [facility] Urea nitrogen [Mass/Vol] 31 mg/dL High 9 - 23 mg/dL [facility] CALCIUM, IONIZEDon CALCIUM IONIZED 4.20 mg/dL Low 4.30-5.20 [facility] Comment on above: Performed By: #### L [id number] ####Satellite Specialist: GRACEI SUTTON ([phone])[facility] ([facility])[address] [place] [address] PH, IONIZED CALCIUM 7.41 Normal 7.31-7.46 [facility] Comment on above: Performed By: #### L AB54 ####Satellite Specialist: GRACIE SUTTON ([phone])[facility] ([facility])[address] [place] [address] CBC W Auto Differential pane l (Bld)Ordered By: Kim Negrete on 04-25-2025 Basophils (Bld) [#/Vol] 0.1 10*3/uL 0.0 - 0.2 10*3/uL [facility] Basophils/100 WBC (Bld) 0.4 % 0.0 - 2.0 % [facility] Eosinophils (Bld) [#/Vol] 0.2 10*3/uL 0.0 - 0.5 10*3/uL [facility] Eosinophils/100 WBC (Bld) 1.4 % 0.0 - 6.0 % [facility] Erythrocyte distribution width (RBC) [Ratio] 14.8 % 11.5 - 15.0 % [facility] Hematocrit (Bld) [Volume fraction] 38.6 % Low 40.0 - 52.0 % [facility] Hemoglobin (Bld) [Mass/Vol] 12.8 g/dL Low 13.0 - 18.0 g/dL [facility] Immature granulocytes (Bld) [#/Vol] 0.1 10*3/uL High NINF - 0.1 10*3/uL [facility] Immature granulocytes/100 WBC (Bld) 0.6 % 0.0 - 2.0 % [facility] Interpretation and review of laboratory results Abnormal [facility] Lymphocytes (Bld) [#/Vol] 1.1 10*3/uL 1.0 - 4.3 10*3/uL [facility] Lymphocytes/100 WBC (Bld) 8.7 % Low 15.0 - 45.0 % [facility] MCH (RBC) [Entitic mass] 29.2 pg 26.0 - 34.0 pg [facility] MCHC (RBC) [Mass/Vol] 33.2 % 30.5 - 36.0 % [facility] MCV (RBC) [Entitic vol] 88.1 fL 77.0 - 99.0 fL [facility] Monocytes (Bld) [#/Vol] 2 10*3/uL High 0.0 - 0.9 10*3/uL [facility] Monocytes/100 WBC (Bld) 15.7 % High 5.0 - 13.0 % [facility] Neutrophils (Bld) [#/Vol] 9.3 10*3/uL High 1.8 - 7.5 10*3/uL [facility] Neutrophils/100 WBC (Bld) 73.2 % 38.0 - 82.0 % [facility] Nucleated RBC/100 WBC (Bld) [Ratio] 0 % [facility] Platelet mean volume (Bld) [Entitic vol] 9.8 fL 9.0 - 12.7 fL [facility] Platelets (Bld) [#/Vol] 212 10*3/uL 140 - 440 10*3/uL [facility] RBC (Bld) [#/Vol] 4.38 10*6/uL Low 4.40 - 5.9 0 10*6/uL [facility] WBC (Bld) [#/Vol] 12.7 10*3/uL High 3.6 - 10.7 10*3/uL [facility] CBC WITH AUTO DIFFERENTIALon 04-25-2025 Basophils (Bld) [#/Vol] 0.1 10*3/uL Normal 0.0-0.2 [facility] Comment on above: Performed By: #### L [id number] ####Satellite Specialist: GRACIE SUTTON ([phone])[facility] [address] Basophils/100 WBC (Bld) 0.4 % Normal 0.0-2.0 S [facility] Comment on above: Performed By: #### L [id number] ####Satellite Specialist: GRACIE SUTTON ([phone])[facility])[address] [place] [address] Eosinophils (Bld) [#/Vol] 0.2 10*3/uL Normal 0.0-0.5 [facility] Comment on above: Performed By: #### L [id number] ####Satellite Specialist: GRACIE SUTTON ([phone])[address] Eosinophils/100 WBC (Bld) 1.4 % Normal 0.0-6.0 [facility] Comment on above: Performed By: #### L [id number] ####Satellite Specialist: GRACIE SUTTON ([phone])[facility])[address] [place] [address] Erythrocyte distribution width (RBC) [Ratio] 14.8 % Normal 11.5-15.0 [facility] Comment on above: Performed By: #### L [id number] ####Satellite Specialist: GRACIE SUTTON ([phone])[address] Hematocrit (Bld) [Volume fraction] 38.6 % Low 40.0-52.0 [facility] Comment on above: Performed By: #### L [id number] ####Satellite Specialist: GRACIE SUTTON ([phone])[address] Hemoglobin (Bld) [Mass/Vol] 12.8 g/dL Low 13.0-18.0 [facility] Comment on above: Performed By: #### L [id number] ####Satellite Specialist: GRACIE SUTTON ([phone])[facility])[address] [place] [address] IMMATURE GRANS % 0.6 % Normal 0.0-2.0 [facility] Comment on above: Performed By: #### L [id number] ####Satellite Specialist: GRACIE SUTTON ([phone])[facility])[address] [place] [address] IMMATURE GRANS ABSOLUTE 0.1 10*3/uL High <0.1 [facility] Comment on above: Performed By: #### L [id number] ####Satellite Specialist: GRACIE SUTTON ([phone])[facility])[address] [place] [address] Lymphocytes (Bld) [#/Vol] 1.1 10*3/uL Normal 1.0-4.3 [facility] Comment on above: Performed By: #### L [id number] ####Satellite Specialist: GRACIE SUTTON ([phone])[address] Lymphocytes/100 WBC (Bld) 8.7 % Low 15.0-45.0 [facility] Comment on above: Performed By: #### L [id number] ####Satellite Specialist: GRACIE SUTTON ([phone])[address] MCH (RBC) [Entitic mass] 29.2 pg Normal 26.0-34.0 [facility] Comment on above: Performed By: #### L [id number] ####Satellite Specialist: GRACIE SUTTON ([phone])[address] MCHC 33.2 % Normal 30.5-36.0 [facility] Comment on above: Performed By: #### L [id number] ####Satellite Specialist: GRACIE SUTTON ([phone])[address] MCV (RBC) [Entitic vol] 88.1 fL Normal 77.0-99.0 S [facility] Comment on above: Performed By: #### L [id number] ####Satellite Specialist: GRACIE SUTTON ([phone])[facility] ([facility])[address] [place] [address] Monocytes (Bld) [#/Vol] 2.0 10*3/uL High 0.0-0.9 [facility] Comment on above: Performed By: #### L [id number] ####Satellite Specialist: GRACIE SUTTON ([phone])[facility] ([facility])[address] [place] [address] Monocytes/100 WBC (Bld) 15.7 % High 5.0-13.0 [facility] Comment on above: Performed By: #### L [id number] ####Satellite Specialist: GRACIE SUTTON ([phone])[facility] ([facility])[address] [place] [address] NEUTROPHILS ABSOLUTE 9.3 10*3/uL High 1.8-7.5 [facility] Comment on above: Performed By: #### L [id number] ####Satellite Specialist: GRACIE SUTTON ([phone])[facility] ([facility])[address] [place] [address] Neutrophils/100 WBC (Bld) 73.2 % Normal 38.0-82.0 [facility] Comment on above: Performed By: #### L [id number] ####Satellite Specialist: GRACIE SUTTON ([phone])[facility] ([facility])[address] [place] [address] NRBC 0.0 /100 WBCs Normal 0.0-2.0 [facility] Comment on above: Performed By: #### L [id number] ####Satellite Specialist: GRACIE SUTTON ([phone])[facility] ([facility])[address] [place] [address] Platelet mean volume (Bld) [Entitic vol] 9.8 fL Normal 9.0-12.7 [facility] Comment on above: Performed By: #### L [id number] ####Satellite Specialist: GRACIE SUTTON ([phone])[facility] ([facility])[address] [place] [address] Platelets (Bld) [#/Vol] 212 10*3/uL Normal 140-440 [facility] Comment on above: Performed By: #### L [id number] ####Satellite Specialist: GRACIE SUTTON ([phone])[facility] ([facility])[address] [place] [address] RBC (Bld) [#/Vol] 4.38 10*6/uL Low 4.40-5.90 [facility] Comment on above: Performed By: #### L [id number] ####Satellite Specialist: GRACIE SUTTON ([phone])[facility] ([facility])[address] [place] [address] WBC (Bld) [#/Vol] 12.7 10*3/uL High 3.6-10.7 [facility] Comment on above: Performed By: #### L [id number] ####Satellite Specialist: GRACIE SUTTON ([phone])[facility] ([facility])[address] [place] [address] [place] HEAD WO IV CONTRASTon CT HEAD WO IV CONTRAST Normal [facility] CT Head WO contraston 2024 [facility] RADIOLOGY [facility] Radiology Study observation (narrative) [facility] CT Head WO contrastOrdered B y: Madan Trell on 04-25-2025 [facility] Work Phone: Calcium.ionized [Moles/Vol]O rdered By: Christelle Sherman on 04-25-2025 Calcium.ionized (Bld) [Moles/Vol] 4.2 mg/dL Low 4.30 - 5.20 mg/dL [facility] Interpretation and review of laboratory results Abnormal [facility] PH, IONIZED CALCIUM 7.41 7.31 - 7.46 [facility] Laboratory - Chemistry and C hemistry - challengeon 04-25-2025 Glucose [Mass/Vol] 204 mg/dL High 70 - 100 mg/dL [facility] Glucose [Mass/Vol] 131 mg/dL High 70 - 100 mg/dL [facility] Magnesium [Mass/Vol] 2.4 mg/dL 1.6 - 2 .6 mg/dL [facility] MAGNESIUMon 04-25-2025 Magnesium [Mass/Vol] 2.4 mg/dL Normal 1.6-2.[address] [facility] Comment on above: Result Comment: TERRELL Ramirez COMMENTS:Higher values can be expected in females during menses. Performed By: #### L AB113, LAB15, [id number] ####Satellite Specialist: GRACIE SUTTON ([phone])[facility] ([facility])[address] [place] [address] [place] Magnesium [Mass/Vol]on 04-25 [facility] No Panel Informationon 04-25 Interpretation and review of laboratory results Abnormal [facility] Interpretation and review of laboratory results Abnormal [facility] Interpretation and review of laboratory results Normal [facility] Nursing Noteon 04-25-2025 Nursing Note Report called to 3W Normal [facility] Nursing Note Normal [facility] PHOSPHORUSon 04-25-2025 Phosphate [Mass/Vol] 3.4 mg/dL Normal 2.3-4.[address] [facility] Comment on above: Performed By: #### L AB113, LAB15, [id number] ####Satellite Specialist: GRACIE SUTTON ([phone])[facility] ([facility])[address] [place] [address] [place] Phosphate [Moles/Vol]on Phosphate [Mass/Vol] 3.4 mg/dL 2.3 - 4 .7 mg/dL [facility] Progress Noteon 04-25-2025 Progress Note Normal [facility] Progress Note Normal [facility] Progress Note Normal [facility] Progress Note Normal [facility] Progress Note Normal [facility] 30on 04-24-2025 30 Pt was up to chair with assistance with nursing and therapy. Normal [facility] [id number] 04-24-2025 [id number] Normal [facility] BASIC METABOLIC PANELon 06-3 Anion gap [Moles/Vol] 10 mmol/L Normal 3-13 [facility] Comment on above: Performed By: #### L AB113, [id number], LAB15 ####Satellite Specialist: GRACIE SUTTON ([phone])[facility] ([facility])[address] [place] [address] Calcium [Mass/Vol] 8.7 mg/dL Low 8.8-10.0 [facility] Comment on above: Performed By: #### L AB113, [id number], LAB15 ####Satellite Specialist: GRACIE SUTTON ([phone])[facility] [place] [address] Chloride [Moles/Vol] 109 mmol/L High 98-107 [facility] Comment on above: Performed By: #### L AB113, [id number], LAB15 ####Satellite Specialist: GRACIE SUTTON ([phone])[facility] [place] [address] CO2 [Moles/Vol] 18 mmol/L Low 23-31 [facility] Comment on above: Performed By: #### Lisbet AB113, [id number], LAB15 ####Satellite Specialist: GRACIE SUTTON ([phone])[facility] ([facility])[address] [place] [address] Creatinine [Mass/Vol] 1.18 mg/dL Normal 0.72-1.25 [facility] Comment on above: Performed By: #### L AB113, [id number], LAB15 ####Satellite Specialist: GRACIE SUTTON ([phone])[facility] ([facility])[address] [place] [address] [place] GLOMERULAR FILTRATION RATE ML/MIN/1.73 SQ M.PREDICTED 63.2 mL/min/1.73m*2 Normal >60.0 [facility] Comment on above: Result Comment: Calc ulation based on the Chronic Kidney Disease Epidemiology Collaboration (CKD-EPI) equation refit without adjustment for race Performed By: #### L AB113, [id number], LAB15 ####Satellite Specialist: GRACIE SUTTON ([phone])[facility] ([facility])[address] [place] [address] [place] Glucose [Mass/Vol] 140 mg/dL High 82-115 [facility] Comment on above: Performed By: #### L AB113, [id number], LAB15 ####Satellite Specialist: GRACIE SUTTON ([phone])[facility] ([facility])[address] [place] [address] Potassium [Moles/Vol] 3.8 mmol/L Normal 3.5-5.1 [facility] Comment on above: Result Comment: [facility] potassium values may be up to 0.5 mmol/L lower than serum values. Performed By: #### L AB113, [id number], LAB15 ####Satellite Specialist: GRACIE SUTTON ([phone])[facility] ([facility])[address] [place] [address] Sodium [Moles/Vol] 137 mmol/L Normal 136-145 [facility] Comment on above: Performed By: #### L AB113, [id number], LAB15 ####Satellite Specialist: GRACIE SUTTON ([phone])[facility] ([facility])[address] [place] [address] Urea nitrogen [Mass/Vol] 27 mg/dL High 9-23 [facility] Comment on above: Performed By: #### L AB113, [id number], LAB15 ####Satellite Specialist: GRACIE SUTTON ([phone])[facility] ([facility])[address] [place] [address] Basic metabolic 1998 panelon 04-24-2025 Anion gap [Moles/Vol] 10 mmol/L 3 - 13 mmol/L [facility] Calcium [Mass/Vol] 8.7 mg/dL Low 8.8 - 10. 0 mg/dL [facility] Chloride [Moles/Vol] 109 mmol/L High 98 - 10 7 mmol/L [facility] CO2 [Moles/Vol] 18 mmol/L Low 23 - 31 mmol/L [facility] Creatinine [Mass/Vol] 1.18 mg/dL 0.72 - 1.25 mg/dL [facility] GFR/1.73 sq M.predicted (S/P/Bld) [Vol rate/Area] 63.2 mL/min - PINF [facility] Glucose [Mass/Vol] 140 mg/dL High 82 - 115 mg/dL [facility] Potassium [Moles/Vol] 3.8 mmol/L 3.5 - 5.1 mmol/L [facility] Sodium [Moles/Vol] 137 mmol/L 136 - 145 mmol/L [facility] Urea nitrogen [Mass/Vol] 27 mg/dL High 9 - 23 mg/dL [facility] CALCIUM, IONIZEDon CALCIUM IONIZED 4.40 mg/dL Normal 4.30-5.20 [facility] Comment on above: Performed By: #### L AB54 ####Satellite Specialist: GRACIE SUTTON ([phone])[address] PH, IONIZED CALCIUM 7.45 Normal 7.31-7.46 [facility] Comment on above: Performed By: #### L AB54 ####Satellite Specialist: GRACIE SUTTON ([phone])[facility] ([facility])[address] [place] [address] CBC W Auto Differential pane l (Bld)Ordered By: Jacob Swann on 04-24-2025 Erythrocyte distribution width (RBC) [Ratio] 14.6 % 11.5 - 15.0 % [facility] Hematocrit (Bld) [Volume fraction] 38.8 % Low 40.0 - 52.0 % [facility] Hemoglobin (Bld) [Mass/Vol] 12.7 g/dL Low 13.0 - 18.0 g/dL [facility] Interpretation and review of laboratory results Abnormal [facility] MCH (RBC) [Entitic mass] 28.9 pg 26.0 - 34.0 pg [facility] MCHC (RBC) [Mass/Vol] 32.7 % 30.5 - 36.0 % [facility] MCV (RBC) [Entitic vol] 88.2 fL 77.0 - 99.0 fL [facility] Platelet mean volume (Bld) [Entitic vol] 9.5 fL 9.0 - 12.7 fL [facility] Platelets (Bld) [#/Vol] 221 10*3/uL 140 - 440 10*3/uL [facility] RBC (Bld) [#/Vol] 4.4 10*6/uL 4.40 - 5.9 0 10*6/uL [facility] WBC (Bld) [#/Vol] 13.6 10*3/uL High 3.6 - 10.7 10*3/uL [facility] CBC WITH AUTO DIFFERENTIALon 04-24-2025 Erythrocyte distribution width (RBC) [Ratio] 14.6 % Normal 11.5-15.0 [facility] Comment on above: Performed By: #### L [id number], [id number] ####Satellite Specialist: GRACIE SUTTON ([phone])[facility])[address] [place] [address] Hematocrit (Bld) [Volume fraction] 38.8 % Low 40.0-52.0 [facility] Comment on above: Performed By: #### L [id number], [id number] ####Satellite Specialist: GRACIE SUTTON ([phone])[facility])[address] [place] [address] Hemoglobin (Bld) [Mass/Vol] 12.7 g/dL Low 13.0-18.0 [facility] Comment on above: Performed By: #### L [id number], [id number] ####Satellite Specialist: GRACIE SUTTON ([phone])[facility])[address] [place] [address] MCH (RBC) [Entitic mass] 28.9 pg Normal 26.0-34.0 [facility] Comment on above: Performed By: #### L [id number], [id number] ####Satellite Specialist: GRACIE SUTTON ([phone])[facility])[address] [place] [address] MCHC 32.7 % Normal 30.5-36.0 [facility] Comment on above: Performed By: #### L [id number], [id number] ####Satellite Specialist: GRACIE SUTTON ([phone])[facility])[address] [place] [address] MCV (RBC) [Entitic vol] 88.2 fL Normal 77.0-99.0 [facility] Comment on above: Performed By: #### L [id number], [id number] ####Satellite Specialist: GRACIE SUTTON ([phone])[facility])[address] [place] [address] Platelet mean volume (Bld) [Entitic vol] 9.5 fL Normal 9.0-12.7 [facility] Comment on above: Performed By: #### L [id number], [id number] ####Satellite Specialist: GRACIE SUTTON ([phone])[facility] ([facility])[address] [place] [address] Platelets (Bld) [#/Vol] 221 10*3/uL Normal 140-440 [facility] Comment on above: Performed By: #### L [id number], [id number] ####Satellite Specialist: GRACIE SUTTON ([phone])[facility] ([facility])[address] [place] [address] RBC (Bld) [#/Vol] 4.40 10*6/uL Normal 4.40-5.90 [facility] Comment on above: Performed By: #### L [id number], [id number] ####Satellite Specialist: GRACIE SUTTON ([phone])[facility] ([facility])[address] [place] [address] WBC (Bld) [#/Vol] 13.6 10*3/uL High 3.6-10.7 [facility] Comment on above: Performed By: #### L [id number], [id number] ####Satellite Specialist: GRACIE SUTTON ([phone])[facility] ([facility])[address] [place] [address] [place] HEAD WO IV CONTRASTon CT HEAD WO IV CONTRAST Normal [facility] CT Head WO contraston 2024 [facility] Radiology Study observation (narrative) Marilee Ziegler alth CT Head WO contrastOrdered B y: Elmer Gaona on 04-24-2025 [facility] [employer] Work Phone: Calcium.ionized [Moles/Vol]O rdered By: Darren Carrillo on 04-24-2025 Calcium.ionized (Bld) [Moles/Vol] 4.4 mg/dL 4.30 - 5.20 mg/dL [facility] Interpretation and review of laboratory results Normal [facility] PH, IONIZED CALCIUM 7.45 7.31 - 7.46 [facility] Consulton 04-24-2025 Consult Acknowledges case management consult, will follow for discharge planning. Normal [facility] Laboratory - Chemistry and C hemistry - challengeon 04-24-2025 Glucose [Mass/Vol] 150 mg/dL High 70 - 100 mg/dL [facility] Glucose [Mass/Vol] 121 mg/dL High 70 - 100 mg/dL [facility] Magnesium [Mass/Vol] 1.7 mg/dL 1.6 - 2 .6 mg/dL [facility] Laboratory - Hematology and Cell countson 04-24-2025 Band form neutrophils (Bld) [#/Vol] 0.3 10*3/uL High NINF - 0.0 10*3/uL [facility] Band form neutrophils/100 WBC (Bld) 2 % High NINF - 0 % [facility] Kenneth cells LM Ql (Bld) Marked Abnormal (none) [facility] [place] cells LM Ql (Bld) Moderate Abnormal (none) [facility] Lymphocytes (Bld) [#/Vol] 1.1 10*3/uL 1.0 - 4.3 10*3/uL [facility] Lymphocytes/100 WBC (Bld) 8 % Low 15 - 45 % [facility] Monocytes (Bld) [#/Vol] 1.1 10*3/uL High 0.0 - 0.9 10*3/uL [facility] Monocytes/100 WBC (Bld) 8 % 5 - 13 % [facility] Neutrophils (Bld) [#/Vol] 11.2 10*3/uL High 1.8 - 7.5 10*3/uL [facility] Ovalocytes LM Ql (Bld) Slight Abnormal (none) [facility] Poikilocytosis LM Ql (Bld) Marked Abnormal (none) [facility] RBC morphology finding Nom (Bld) abnormal [facility] Segmented neutrophils/100 WBC (Bld) 80 % 38 - 82 % [facility] Variant lymphocytes (Bld) [#/Vol] 0.3 10*3/uL High NINF - 0.0 10*3/uL [facility] Variant lymphocytes/100 WBC (Bld) 2 % High NINF - 0 % [facility] MAGNESIUMon 04-24-2025 Magnesium [Mass/Vol] 1.7 mg/dL Normal 1.6-2.[address] [facility] Comment on above: Result Comment: TERRELL Ramirez COMMENTS:Higher values can be expected in females during menses. Performed By: #### L [id number], [id number], [id number] ####Satellite Specialist: GRACIE SUTTON ([phone])[facility])[address] [place] [address] MANUAL DIFFERENTIAL (CELLAVI KELLIE)on 04-24-2025 ACANTHOCYTES (PRESENCE) IN BLOOD BY LIGHT MICROSCOPY Moderate Abnormal (none) [facility] Comment on above: Performed By: #### L [id number], [id number] ####Satellite Specialist: GRACIE SUTTON ([phone])[facility] ([facility])[address] [place] [address] BAND NEUTROPHILS TOTAL PER COUNTED LEUKOCYTES BY MANUAL COUNT 2 Normal [facility] Comment on above: Performed By: #### L [id number], [id number] ####Satellite Specialist: GRACIE SUTTON ([phone])[facility] ([facility])[address] [place] [address] [place] BANDS (10*3/UL) IN BLOOD-CELLAVISION 0.3 10*3/uL High <=0.0 [facility] Comment on above: Performed By: #### L [id number], [id number] ####Satellite Specialist: GRACIE [phone])[facility])[address] [place] [address] [place] BASOPHILS TOTAL PER COUNTED LEUKOCYTES BY MANUAL COUNT Normal [facility] Comment on above: Performed By: #### L [id number], [id number] ####Satellite Specialist: GRACIE [phone])[facility] [place] [address] [place] BLASTS TOTAL PER COUNTED LEUKOCYTES BY MANUAL COUNT Normal [facility] Comment on above: Performed By: #### L [id number], [id number] ####Satellite Specialist: GRACIE SUTTON ([phone])[facility] ([facility])[address] [place] [address] [place] KENNETH CELLS PRESENCE IN BLOOD BY LIGHT MICROSCOPY Marked Abnormal (none) [facility] Comment on above: Performed By: #### L [id number], [id number] ####Satellite Specialist: GRACIE SUTTON ([phone])[facility] ([facility])[address] [place] [address] [place] EOSINOPHILS TOTAL PER COUNTED LEUKOCYTES BY MANUAL COUNT Normal [facility] Comment on above: Performed By: #### L [id number], [id number] ####Satellite Specialist: GRACIE SUTTON ([phone])[facility] ([facility])[address] [place] [address] [place] LYMPHOCYTE VARIANT/100 LEUKOCYTES IN BLOOD- CELLAVISION 2 % High <=0 [facility] Comment on above: Performed By: #### L [id number], [id number] ####Satellite Specialist: GRACIE SUTTON ([phone])[facility] ([facility])[address] [place] [address] [place] LYMPHOCYTES (10*3/UL) IN BLOOD-CELLAVISION 1.1 10*3/uL Normal 1.0-4.3 [facility] Comment on above: Performed By: #### L [id number], [id number] ####Satellite Specialist: GRACIE SUTTON ([phone])[facility] ([facility])[address] [place] [address] [place] LYMPHOCYTES TOTAL PER COUNTED LEUKOCYTES BY MANUAL COUNT 8 Normal [facility] Comment on above: Performed By: #### L [id number], [id number] ####Satellite Specialist: GRACIE SUTTON ([phone])[facility] ([facility])[address] [place] [address] [place] LYMPHOCYTES/100 LEUKOCYTES IN BLOOD-CELLAVISION 8 % Low 15-45 [facility] Comment on above: Performed By: #### L [id number], [id number] ####Satellite Specialist: GRACIE SUTTON ([phone])[facility] ([facility])[address] [place] [address] [place] METAMYELOCYTES TOTAL PER COUNTED LEUKOCYTES BY MANUAL COUNT Normal [facility] Comment on above: Performed By: #### L [id number], [id number] ####Satellite Specialist: GRACIE SUTTON ([phone])[facility] ([facility])[address] [place] [address] [place] MONOCYTES (10*3/UL) IN BLOOD-CELLAVISION 1.1 10*3/uL High 0.0-0.9 [facility] Comment on above: Performed By: #### L [id number], [id number] ####Satellite Specialist: GRACIE SUTTON ([phone])[facility] ([facility])[address] [place] [address] [place] MONOCYTES TOTAL PER COUNTED LEUKOCYTES BY MANUAL COUNT 8 Normal [facility] Comment on above: Performed By: #### L [id number], [id number] ####Satellite Specialist: GRACIE SUTTON ([phone])[facility] ([facility])[address] [place] [address] [place] MONOCYTES/100 LEUKOCYTES IN BLOOD-ETHAN 8 % Normal 5-13 [facility] Comment on above: Performed By: #### L [id number], [id number] ####Satellite Specialist: GRACIE SUTTON ([phone])[facility] ([facility])[address] [place] [address] [place] MYELOCYTES COUNTED BY MANUAL COUNT Normal [facility] Comment on above: Performed By: #### L [id number], [id number] ####Satellite Specialist: GRACIE SUTTON ([phone])[facility])[address] [place] [address] [place] NEUTROPHILS BAND FORM/100 LEUKOCYTES IN BLOOD-CELLAVISI 2 % High <=0 [facility] Comment on above: Performed By: #### L [id number], [id number] ####Satellite Specialist: GRACIE SUTTON ([phone])[facility] [place] [address] [place] NEUTROPHILS TOTAL PER COUNTED LEUKOCYTES BY MANUAL COUNT 81 Normal [facility] Comment on above: Performed By: #### L [id number], [id number] ####Satellite Specialist: GRACIE SUTTON ([phone])[facility])[address] [place] [address] OVALOCYTES PRESENCE IN BLOOD BY LIGHT MICROSCOPY Slight Abnormal (none) [facility] Comment on above: Performed By: #### L [id number], [id number] ####Satellite Specialist: GRACIE SUTTON ([phone])[facility] ([facility])[address] [place] [address] POIKILOCYTOSIS (PRESENCE) IN BLOOD BY LIGHT MICROSCOPY Marked Abnormal (none) [facility] Comment on above: Performed By: #### L [id number], [id number] ####Satellite Specialist: GRACIE SUTTON ([phone])[facility])[address] [place] [address] [place] PROMYELOCYTES TOTAL PER COUNTED LEUKOCYTES BY MANUAL COUNT Normal [facility] Comment on above: Performed By: #### L [id number], [id number] ####Satellite Specialist: GRACIE SUTTON ([phone])[facility] ([facility])[address] [place] [address] RBC MORPHOLOGY IN BLOOD abnormal Normal [facility] Comment on above: Performed By: #### L [id number], [id number] ####Satellite Specialist: GRACIE SUTTON ([phone])[facility] ([facility])[address] [place] [address] [place] SEGMENTED NEUTROPHILS (10*3/UL) IN BLOOD-CELLAVISION 11.2 10*3/uL High 1.8-7.5 [facility] Comment on above: Performed By: #### L [id number], [id number] ####Satellite Specialist: GRACIE SUTTON ([phone])[facility] ([facility])[address] [place] [address] SEGMENTED NEUTROPHILS/100 LEUKOCYTES-CE 80 % Normal 38-82 [facility] Comment on above: Performed By: #### L [id number], [id number] ####Satellite Specialist: GRACIE SUTTON ([phone])[facility])[address] [place] [address] UNCLASSIFIED CELLS TOTAL PER COUNTED LEUKOCYTES BY MANUAL COUNT Normal [facility] Comment on above: Performed By: #### L [id number], [id number] ####Satellite Specialist: GRACIE SUTTON ([phone])[facility] [place] [address] VARIANT LYMPHOCYTES (10*3/UL) IN BLOOD-CELLAVISION 0.3 10*3/uL High <=0.0 [facility] Comment on above: Performed By: #### L [id number], [id number] ####Satellite Specialist: GRACIE SUTTON ([phone])[facility])[address] [place] [address] VARIANT LYMPHOCYTES TOTAL PER COUNTED LEUKOCYTES BY MANUAL COUNT 2 Normal [facility] Comment on above: Performed By: #### L [id number], [id number] ####Satellite Specialist: GRACIE SUTTON ([phone])[facility] ([facility])[address] [place] [address] [place] Magnesium [Mass/Vol]on 04-24 Interpretation and review of laboratory results Normal [facility] Medical Studenton 04-24-2025 Medical Student Normal [facility] No Panel Informationon 04-24 Interpretation and review of laboratory results Abnormal [facility] Interpretation and review of laboratory results Abnormal [facility] Atypical Lymphocytes Manual 2 [facility] Bands Manual 2 [facility] Interpretation and review of laboratory results Abnormal [facility] Lymphocytes Manual 8 [facility] Monocytes Manual 8 [facility] alth Neutrophils Manual 81 [facility] Interpretation and review of laboratory results Abnormal [facility] PHOSPHORUSon 04-24-2025 Phosphate [Mass/Vol] 2.1 mg/dL Low 2.3-4.7 [facility] Comment on above: Performed By: #### L [id number], [id number], [id number] ####Satellite Specialist: GRACIE SUTTON ([phone])[facility] ([facility])[address] [place] [address] Phosphate [Moles/Vol]on 03-28 Phosphate [Mass/Vol] 2.1 mg/dL Low 2.3 - 4 .7 mg/dL [facility] Progress Noteon 04-24-2025 Progress Note Normal [facility] Progress Note Normal [facility] Progress Note Normal [facility] Progress Note Normal [facility] US Heart TransthoracicOrdere d By: Rick Vang on 04-24-2025 Ao Root Index 2.04 cm/m2 [facility] Work Phone: Aortic Arch 3.1 cm [facility] Work Phone: Aortic Root 3.9 cm [facility] Work Phone: [phone] Aortic Sinus Valsalva 3.9 cm [facility] Work Phone: [phone] Aortic Sinus Valsalva Index 2.04 cm/m2 [facility] Work Phone: Aortic valve Mean systole pressure gradient by US.doppler derived full Bernoulli 2 mmHg [facility] Work Phone: Aortic valve Orifice area by US 2.8 cm2 [facility] Work Phone: Aortic valve Peak systolic flow by US.doppler 0.7 m/s [facility] Work Phone: Ascending Aorta 4.1 cm [facility] Work Phone: [phone] Ascending Aorta Index 2.15 cm/m2 [facility] Work Phone: [phone] AV Area by Peak Velocity 2.2 cm2 [facility] Work Phone: [phone] AV Area by VTI 1.9 cm2 [facility] Work Phone: [phone] AV Peak Gradient 5 mmHg [facility] Work Phone: AV Peak Velocity 1.1 m/s [facility] Work Phone: AV Velocity Ratio 0.73 [facility] Work Phone: [phone] AV VTI 22.9 cm [facility] Work Phone: ISIDRO/BSA Peak Velocity 1.2 cm2/m2 [facility] [employer] Work Phone: ISIDRO/BSA VTI 1 cm2/m2 [facility] [employer] Work Phone: [phone] E/E' Lateral 6.33 [facility] [employer] Work Phone: E/E' Ratio (Averaged) 7.24 [facility] [employer] Work Phone: E/E' Septal 8.14 [facility] [employer] Work Phone: Fractional Shortening 2D 31 % 28 - 44 % [facility] [employer] Work Phone: Interpretation and review of laboratory results Abnormal [facility] [employer] Phone: IVSd 1.1 cm Abnormal 0.6 - 1.0 cm [facility] [employer] Work Phone: LA Diameter 2.8 cm [facility] [employer] Work Phone: LA Size Index 1.47 cm/m2 [facility] Work Phone: LA Volume 2C 38 mL 18 - 58 mL [facility] [employer] Phone: LA Volume 4C 23 mL 18 - 58 mL [facility] [employer] Phone: LA Volume A/L 33 mL [facility] Work Phone: LA Volume BP 30 mL 18 - 58 mL [facility] [employer] Work Phone: LA Volume Index 2C 20 mL/m2 16 - 34 mL/m2 [facility] [employer] Phone: LA Volume Index 4C 12 mL/m2 Abnormal 16 - 34 mL/m2 [facility] [employer] Phone: LA Volume Index A/L 17 mL/m2 16 - 34 mL/m2 [facility] [employer] Phone: LA Volume Index BP 16 ml/m2 16 - 34 ml/m2 [facility] [employer] Work Phone: LA/AO Root Ratio 0.72 [facility] Work Phone: Left ventricular Ejection fraction by US.2D+Calculated by biplane method of disks 66 % 55 - 100 % [facility] Work Phone: LV E' Lateral Velocity 9 cm/s [facility] Work Phone: LV E' Septal Velocity 7 cm/s [facility] Work Phone: LV EDV A2C 85 mL [facility] Work Phone: LV EDV A4C 89 mL [facility] Work Phone: LV EDV BP 88 mL 67 - 155 mL [facility] Work Phone: LV EDV Index A2C 45 mL/m2 [facility] Work Phone: LV EDV Index A4C 47 mL/m2 [facility] Work Phone: LV EDV Index BP 46 mL/m2 [facility] Work Phone: LV Ejection Fraction A2C 69 % [facility] Work Phone: LV Ejection Fraction A4C 63 % [facility] Work Phone: LV ESV A2C 26 mL [facility] Work Phone: LV ESV A4C 33 mL [facility] Work Phone: LV ESV BP 30 mL 22 - 58 mL [facility] Work Phone: LV ESV Index A2C 14 mL/m2 [facility] Work Phone: LV ESV Index A4C 17 mL/m2 [facility] Work Phone: LV ESV Index BP 16 mL/m2 [facility] Work Phone: LV Mass 2D 140.1 g 88 - 224 g [facility] Work Phone: LV Mass 2D Index 73.3 g/m2 49 - 115 g/m2 [facility] Work Phone: LV RWT Ratio 0.56 [facility] Work Phone: LVIDd 3.9 cm Abnormal 4.2 - 5.9 cm [facility] Work Phone: LVIDd Index 2.04 cm/m2 [facility] [employer] Work Phone: LVIDs 2.7 cm [facility] [employer] Work Phone: LVIDs Index 1.41 cm/m2 [facility] [employer] Work Phone: LVOT Cardiac Output 3.3 liter/minute [facility] Work Phone: LVOT Diameter 1.9 cm [facility] Work Phone: LVOT Mean Gradient 1 mmHg [facility] [employer] Work Phone: LVOT Peak Gradient 3 mmHg [facility] [employer] Work Phone: LVOT Peak Velocity 0.8 m/s [facility] [employer] Work Phone: LVOT Stroke Volume Index 21.4 mL/m2 [facility] [employer] Work Phone: LVOT SV 40.8 ml [facility] [employer] Work Phone: LVOT VTI 14.4 cm [facility] [employer] Work Phone: LVOT:AV VTI Index 0.63 [facility] Work Phone: LVPWd 1.1 cm Abnormal 0.6 - 1.0 cm [facility] [employer] Work Phone: MV A Velocity 0.44 m/s [facility] Work Phone: MV E Velocity 0.57 m/s [facility] Work Phone: MV E Wave Deceleration Time 182.1 ms [facility] [employer] Work Phone: MV E/A 1.3 [facility] [employer] Work Phone: RA Area 4C 32.9 mL [facility] Work Phone: RA Area 4C 32.2 mL [facility] [employer] Work Phone: RV Basal Dimension 3.1 cm [facility] [employer] Work Phone: RV Free Wall Peak S' 8 cm/s [facility] Work Phone: RV Longitudinal Dimension 8.2 cm [facility] Work Phone: RV Mid Dimension 1.7 cm [facility] Work Phone: Sinotubular Junction 2.9 cm [facility] Work Phone: TAPSE 1.6 cm Abnormal 1.7 cm [facility] Work Phone: [facility] Work Phone: US Heart Transthoracicon CV CPACS BASIC METABOLIC PANELon 03-27 Anion gap [Moles/Vol] 16 mmol/L High 3-13 [facility] Comment on above: Performed By: #### L AB15, [id number], [id number] ####Satellite Specialist: GRACIE SUTTON ([phone])[facility])[address] [place] [address] Calcium [Mass/Vol] 8.9 mg/dL Normal 8.8-10.0 [facility] Comment on above: Performed By: #### L AB15, [id number], [id number] ####Satellite Specialist: GRACIE SUTTON ([phone])[facility])[address] [place] [address] Chloride [Moles/Vol] 110 mmol/L High 98-107 [facility] Comment on above: Performed By: #### L AB15, [id number], [id number] ####Satellite Specialist: GRACIE SUTTON ([phone])[facility] ([facility])[address] [place] [address] [place] CO2 [Moles/Vol] 14 mmol/L Low 23-31 [facility] Comment on above: Performed By: #### L AB15, [id number], [id number] ####Satellite Specialist: GRACIE SUTTON ([phone])[facility])[address] [place] [address] [place] Creatinine [Mass/Vol] 1.22 mg/dL Normal 0.72-1.25 [facility] Comment on above: Performed By: #### L AB15, [id number], [id number] ####Satellite Specialist: GRACIE SUTTON ([phone])[address] GLOMERULAR FILTRATION RATE ML/MIN/1.73 SQ M.PREDICTED 60.7 mL/min/1.73m*2 Normal >60.0 [facility] Comment on above: Result Comment: Calc ulation based on the Chronic Kidney Disease Epidemiology Collaboration (CKD-EPI) equation refit without adjustment for race Performed By: #### L AB15, [id number], [id number] ####Satellite Specialist: GRACIE SUTTON ([phone])[address] Glucose [Mass/Vol] 119 mg/dL High 82-115 [facility] Comment on above: Performed By: #### L AB15, [id number], [id number] ####Satellite Specialist: GRACIE SUTTON ([phone])[address] Potassium [Moles/Vol] 4.3 mmol/L Normal 3.5-5.1 [facility] Comment on above: Result Comment: [facility] potassium values may be up to 0.5 mmol/L lower than serum values. Performed By: #### L AB15, [id number], [id number] ####Satellite Specialist: GRACIE USTTON ([phone])[address] Sodium [Moles/Vol] 140 mmol/L Normal 136-145 [facility] Comment on above: Performed By: #### L AB15, [id number], [id number] ####Satellite Specialist: GRACIE SUTTON ([phone])[address] Urea nitrogen [Mass/Vol] 28 mg/dL High 9-23 [facility] Comment on above: Performed By: #### L AB15, [id number], [id number] ####Satellite Specialist: GRACIE [phone])[facility])[address] [place] [address] Basic metabolic 1998 panelon 04-23-2025 Anion gap [Moles/Vol] 16 mmol/L High 3 - 13 mmol/L [facility] Calcium [Mass/Vol] 8.9 mg/dL 8.8 - 10. 0 mg/dL [facility] Chloride [Moles/Vol] 110 mmol/L High 98 - 10 7 mmol/L [facility] CO2 [Moles/Vol] 14 mmol/L Low 23 - 31 mmol/L [facility] Creatinine [Mass/Vol] 1.22 mg/dL 0.72 - 1.25 mg/dL [facility] GFR/1.73 sq M.predicted (S/P/Bld) [Vol rate/Area] 60.7 mL/min - PINF [facility] Glucose [Mass/Vol] 119 mg/dL High 82 - 115 mg/dL [facility] Interpretation and review of laboratory results Abnormal [facility] Potassium [Moles/Vol] 4.3 mmol/L 3.5 - 5.1 mmol/L [facility] Sodium [Moles/Vol] 140 mmol/L 136 - 145 mmol/L [facility] Urea nitrogen [Mass/Vol] 28 mg/dL High 9 - 23 mg/dL [facility] CALCIUM, IONIZEDon CALCIUM IONIZED 4.60 mg/dL Normal 4.30-5.20 [facility] Comment on above: Performed By: #### L [id number] ####Satellite Specialist: GRACIE SUTTON ([phone])[facility])[address] [place] [address] PH, IONIZED CALCIUM 7.36 Normal 7.31-7.46 [facility] Comment on above: Performed By: #### L AB54 ####Satellite Specialist: GRACIE SUTTON ([phone])[facility])[address] [place] [address] CBC W Auto Differential pane l (Bld)on 04-23-2025 Basophils (Bld) [#/Vol] 0.1 10*3/uL 0.0 - 0.2 10*3/uL [facility] Basophils/100 WBC (Bld) 0.4 % 0.0 - 2.0 % [facility] Eosinophils (Bld) [#/Vol] 0 10*3/uL 0.0 - 0.5 10*3/uL [facility] Eosinophils/100 WBC (Bld) 0.1 % 0.0 - 6.0 % [email or web address] Erythrocyte distribution width (RBC) [Ratio] 14.6 % 11.5 - 15.0 % [facility] Hematocrit (Bld) [Volume fraction] 39.9 % Low 40.0 - 52.0 % [facility] Hemoglobin (Bld) [Mass/Vol] 12.9 g/dL Low 13.0 - 18.0 g/dL [facility] Immature granulocytes (Bld) [#/Vol] 0.1 10*3/uL High NINF - 0.1 10*3/uL [facility] Immature granulocytes/100 WBC (Bld) 0.4 % 0.0 - 2.0 % [facility] Interpretation and review of laboratory results Abnormal [facility] Lymphocytes (Bld) [#/Vol] 1.2 10*3/uL 1.0 - 4.3 10*3/uL [facility] Lymphocytes/100 WBC (Bld) 8.7 % Low 15.0 - 45.0 % [facility] MCH (RBC) [Entitic mass] 29 pg 26.0 - 34.0 pg [facility] MCHC (RBC) [Mass/Vol] 32.3 % 30.5 - 36.0 % [facility] MCV (RBC) [Entitic vol] 89.7 fL 77.0 - 99.0 fL [facility] Monocytes (Bld) [#/Vol] 1.2 10*3/uL High 0.0 - 0.9 10*3/uL [facility] Monocytes/100 WBC (Bld) 8.6 % 5.0 - 13.0 % [facility] Neutrophils (Bld) [#/Vol] 11.5 10*3/uL High 1.8 - 7.5 10*3/uL [facility] Neutrophils/100 WBC (Bld) 81.8 % 38.0 - 82.0 % [facility] Nucleated RBC/100 WBC (Bld) [Ratio] 0 % [email or web address] Platelet mean volume (Bld) [Entitic vol] 9.6 fL 9.0 - 12.7 fL [email or web address] Platelets (Bld) [#/Vol] 227 10*3/uL 140 - 440 10*3/uL [facility] RBC (Bld) [#/Vol] 4.45 10*6/uL 4.40 - 5.9 0 10*6/uL [facility] WBC (Bld) [#/Vol] 14.1 10*3/uL High 3.6 - 10.7 10*3/uL [facility] CBC WITH AUTO DIFFERENTIALon 04-23-2025 Basophils (Bld) [#/Vol] 0.1 10*3/uL Normal 0.0-0.2 [facility] Comment on above: Performed By: #### L [id number] ####Satellite Specialist: GRACIE SUTTON ([phone])[facility])[address] [place] [address] Basophils/100 WBC (Bld) 0.4 % Normal 0.0-2.0 [facility] Comment on above: Performed By: #### L [id number] ####Satellite Specialist: GRACIE SUTTON ([phone])[facility] ([facility])[address] [place] [address] Eosinophils (Bld) [#/Vol] 0.0 10*3/uL Normal 0.0-0.5 [facility] Comment on above: Performed By: #### L [id number] ####Satellite Specialist: GRACIE SUTTON ([phone])[facility])[address] [place] [address] Eosinophils/100 WBC (Bld) 0.1 % Normal 0.0-6.0 [facility] Comment on above: Performed By: #### L [id number] ####Satellite Specialist: GRACIE SUTTON ([phone])[facility] ([facility])[address] [place] [address] Erythrocyte distribution width (RBC) [Ratio] 14.6 % Normal 11.5-15.0 [facility] Comment on above: Performed By: #### L [id number] ####Satellite Specialist: GRACIE SUTTON ([phone])[facility] Hematocrit (Bld) [Volume fraction] 39.9 % Low 40.0-52.0 [facility] Comment on above: Performed By: #### L [id number] ####Satellite Specialist: GRACIE SUTTON ([phone])[facility])[address] [place] [address] Hemoglobin (Bld) [Mass/Vol] 12.9 g/dL Low 13.0-18.0 [facility] Comment on above: Performed By: #### L [id number] ####Satellite Specialist: GRACIE SUTTON ([phone])[facility])[address] [place] [address] IMMATURE GRANS % 0.4 % Normal 0.0-2.0 [facility] Comment on above: Performed By: #### L [id number] ####Satellite Specialist: GRACIE SUTTON ([phone])[facility])[address] [place] [address] IMMATURE GRANS ABSOLUTE 0.1 10*3/uL High <0.1 [facility] Comment on above: Performed By: #### L [id number] ####Satellite Specialist: GRACIE SUTTON ([phone])[facility])[address] [place] [address] Lymphocytes (Bld) [#/Vol] 1.2 10*3/uL Normal 1.0-4.3 [facility] Comment on above: Performed By: #### L [id number] ####Satellite Specialist: GRACIE SUTTON ([phone])[facility])[address] [place] [address] Lymphocytes/100 WBC (Bld) 8.7 % Low 15.0-45.0 [facility] Comment on above: Performed By: #### L [id number] ####Satellite Specialist: GRACIE SUTTON ([phone])[facility])[address] [place] [address] MCH (RBC) [Entitic mass] 29.0 pg Normal 26.0-34.0 [facility] Comment on above: Performed By: #### L [id number] ####Satellite Specialist: GRACIE SUTTON ([phone])[facility])[address] [place] [address] MCHC 32.3 % Normal 30.5-36.0 [facility] Comment on above: Performed By: #### L [id number] ####Satellite Specialist: GRACIE SUTTON ([phone])[facility])[address] [place] [address] MCV (RBC) [Entitic vol] 89.7 fL Normal 77.0-99.0 [facility] Comment on above: Performed By: #### L [id number] ####Satellite Specialist: GRACIE SUTTON ([phone])[facility])[address] [place] [address] Monocytes (Bld) [#/Vol] 1.2 10*3/uL High 0.0-0.9 [facility] Comment on above: Performed By: #### L [id number] ####Satellite Specialist: GRACIE SUTTON ([phone])[facility])[address] [place] [address] Monocytes/100 WBC (Bld) 8.6 % Normal 5.0-13.0 [facility] Comment on above: Performed By: #### L [id number] ####Satellite Specialist: GRACIE SUTTON ([phone])[facility])[address] [place] [address] NEUTROPHILS ABSOLUTE 11.5 10*3/uL High 1.8-7.5 [facility] Comment on above: Performed By: #### L [id number] ####Satellite Specialist: GRACIE SUTTON ([phone])[facility])[address] [place] [address] Neutrophils/100 WBC (Bld) 81.8 % Normal 38.0-82.0 [facility] Comment on above: Performed By: #### L [id number] ####Satellite Specialist: GRACIE SUTTON ([phone])[facility] ([facility])[address] [place] [address] NRBC 0.0 /100 WBCs Normal 0.0-2.0 [facility] Comment on above: Performed By: #### L [id number] ####Satellite Specialist: GRACIE SUTTON ([phone])[facility])[address] [place] [address] Platelet mean volume (Bld) [Entitic vol] 9.6 fL Normal 9.0-12.7 [facility] Comment on above: Performed By: #### L [id number] ####Satellite Specialist: GRACIE SUTTON ([phone])[facility])[address] [place] [address] Platelets (Bld) [#/Vol] 227 10*3/uL Normal 140-440 [facility] Comment on above: Performed By: #### L [id number] ####Satellite Specialist: GRACIE SUTTON ([phone])[facility] ([facility])[address] [place] [address] RBC (Bld) [#/Vol] 4.45 10*6/uL Normal 4.40-5.90 [facility] Comment on above: Performed By: #### L [id number] ####Satellite Specialist: GRACIE SUTTON ([phone])[facility])[address] [place] [address] WBC (Bld) [#/Vol] 14.1 10*3/uL High 3.6-10.7 [facility] Comment on above: Performed By: #### L [id number] ####Satellite Specialist: GRACIE SUTTON ([phone])[facility])[address] [place] [address] CT HEAD WO IV CONTRASTon CT HEAD WO IV CONTRAST Normal [facility] CT Head WO contraston 2024 [facility] CT Head WO contrastOrdered B y: Cirilo Canales on 04-23-2025 [facility] Work Phone: Calcium.ionized [Moles/Vol]o n 04-23-2025 Calcium.ionized (Bld) [Moles/Vol] 4.6 mg/dL 4.30 - 5.20 mg/dL [facility] Interpretation and review of laboratory results Normal [facility] PH, IONIZED CALCIUM 7.36 7.31 - 7.46 [facility] - Chemistry and C hemistry - challengeon 04-23-2025 Glucose [Mass/Vol] 111 mg/dL High 70 - 100 mg/dL [facility] Glucose [Mass/Vol] 116 mg/dL High 70 - 100 mg/dL [facility] Glucose [Mass/Vol] 222 mg/dL High 70 - 100 mg/dL [facility] Magnesium [Mass/Vol] 1.6 mg/dL 1.6 - 2 .6 mg/dL [facility] Glucose [Mass/Vol] 120 mg/dL High 70 - 100 mg/dL [facility] MAGNESIUMon 04-23-2025 Magnesium [Mass/Vol] 1.6 mg/dL Normal 1.6-2.[address] [facility] Comment on above: Result Comment: TERRELL Ramirez COMMENTS:Higher values can be expected in females during menses. Performed By: #### L [id number], [id number], [id number] ####Satellite Specialist: GRACIE SUTTON ([phone])[address] Magnesium [Mass/Vol]on 04-23 Interpretation and review of laboratory results Normal [facility] No Panel Informationon 04-23 Interpretation and review of laboratory results Abnormal [facility] Interpretation and review of laboratory results Abnormal [facility] Interpretation and review of laboratory results Abnormal [facility] PHOSPHORUSon 04-23-2025 Phosphate [Mass/Vol] 3.6 mg/dL Normal 2.3-4.[address] [facility] Comment on above: Performed By: #### L AB15, [id number], [id number] ####Satellite Specialist: GRACIE SUTTON ([phone])[facility] ([facility])[address] [place] [address] Phosphate [Moles/Vol]on 03-27 Interpretation and review of laboratory results Normal [facility] Phosphate [Mass/Vol] 3.6 mg/dL 2.3 - 4 .7 mg/dL [facility] Progress Noteon 04-23-2025 Progress Note Normal [facility] Progress Note Normal [facility] [id number] 04-22-2025 [id number] Normal [facility] 30on 04-22-2025 30 Normal [facility] Anesthesia Noteon 04-22-2025 Anesthesia Note Normal [facility] BASIC METABOLIC PANELon 03-27 Anion gap [Moles/Vol] 9 mmol/L Normal 3-13 [facility] Comment on above: Performed By: #### L AB113, LAB18, LAB15, [id number] ####Satellite Specialist: GRACIE SUTTON ([phone])[facility] ([facility])[address] [place] [address] [place] Calcium [Mass/Vol] 9.0 mg/dL Normal 8.8-10.0 [facility] Comment on above: Performed By: #### L AB113, LAB18, LAB15, MIH240 ####Satellite Specialist: GRACIE SUTTON ([phone])[facility] ([facility])[address] [place] [address] [place] Chloride [Moles/Vol] 109 mmol/L High 98-[address] [facility] Comment on above: Performed By: #### L AB113, LAB18, LAB15, [id number] ####Satellite Specialist: GRACIE SUTTON ([phone])[facility] ([facility])[address] [place] [address] [place] CO2 [Moles/Vol] 20 mmol/L Low 23-31 [facility] Comment on above: Performed By: #### L AB113, LAB18, LAB15, [id number] ####Satellite Specialist: GRACIE SUTTON ([phone])[facility] ([facility])[address] [place] [address] [place] Creatinine [Mass/Vol] 1.34 mg/dL High 0.72-1.25 [facility] Comment on above: Performed By: #### L AB113, LAB18, LAB15, [id number] ####Satellite Specialist: GRACIE SUTTON ([phone])[facility])[address] [place] [address] GLOMERULAR FILTRATION RATE ML/MIN/1.73 SQ M.PREDICTED 54.2 mL/min/1.73m*2 Low >60.0 [facility] Comment on above: Result Comment: Calc ulation based on the Chronic Kidney Disease Epidemiology Collaboration (CKD-EPI) equation refit without adjustment for race Performed By: #### L AB113, LAB18, LAB15, [id number] ####Satellite Specialist: GRACIE SUTTON ([phone])[address] Glucose [Mass/Vol] 161 mg/dL High 82-115 [facility] Comment on above: Performed By: #### L AB113, LAB18, LAB15, [id number] ####Satellite Specialist: GRACIE SUTTON ([phone])[place] [address] [place] Potassium [Moles/Vol] 5.2 mmol/L High 3.5-5.1 [facility] Comment on above: Result Comment: [facility] potassium values may be up to 0.5 mmol/L lower than serum values. Performed By: #### L AB113, LAB18, LAB15, MAO111 ####Satellite Specialist: GRACIE SUTTON ([phone])[facility])[address] [place] [address] Sodium [Moles/Vol] 138 mmol/L Normal 136-145 [facility] Comment on above: Performed By: #### L AB113, LAB18, LAB15, [id number] ####Satellite Specialist: GRACIE SUTTON ([phone])[place] [address] [place] Urea nitrogen [Mass/Vol] 33 mg/dL High 9-23 [facility] Comment on above: Performed By: #### L AB113, LAB18, LAB15, [id number] ####Satellite Specialist: GRACIE SUTTON ([phone])[facility] ([facility])[address] [place] [address] Basic metabolic 1998 panelon 04-22-2025 Anion gap [Moles/Vol] 9 mmol/L 3 - 13 mmol/L [facility] Calcium [Mass/Vol] 9 mg/dL 8.8 - 10. 0 mg/dL [facility] Chloride [Moles/Vol] 109 mmol/L High 98 - 10 7 mmol/L [facility] CO2 [Moles/Vol] 20 mmol/L Low 23 - 31 mmol/L [facility] Creatinine [Mass/Vol] 1.34 mg/dL High 0.72 - 1.25 mg/dL [facility] GFR/1.73 sq M.predicted (S/P/Bld) [Vol rate/Area] 54.2 mL/min Low - PINF [facility] Glucose [Mass/Vol] 161 mg/dL High 82 - 115 mg/dL [facility] Potassium [Moles/Vol] 5.2 mmol/L High 3.5 - 5.1 mmol/L [facility] Sodium [Moles/Vol] 138 mmol/L 136 - 145 mmol/L [facility] Urea nitrogen [Mass/Vol] 33 mg/dL High 9 - 23 mg/dL [facility] CALCIUM, IONIZEDon CALCIUM IONIZED 4.50 mg/dL Normal 4.30-5.20 [facility] Comment on above: Performed By: #### L AB54 ####Satellite Specialist: GRACIE SUTTON ([phone])[facility] ([facility])[address] [place] [address] PH, IONIZED CALCIUM 7.38 Normal 7.31-7.46 [facility] Comment on above: Performed By: #### L AB54 ####Satellite Specialist: GRACIE SUTTON ([phone])[facility])[address] [place] [address] CBC W Auto Differential pane l (Bld)on 04-22-2025 Basophils (Bld) [#/Vol] 0 10*3/uL 0.0 - 0.2 10*3/uL [facility] Basophils/100 WBC (Bld) 0.4 % 0.0 - 2.0 % [facility] Eosinophils (Bld) [#/Vol] 0 10*3/uL 0.0 - 0.5 10*3/uL [facility] Eosinophils/100 WBC (Bld) 0 % 0.0 - 6.0 % [facility] Erythrocyte distribution width (RBC) [Ratio] 14.2 % 11.5 - 15.0 % [facility] Hematocrit (Bld) [Volume fraction] 38.7 % Low 40.0 - 52.0 % [facility] Hemoglobin (Bld) [Mass/Vol] 12.6 g/dL Low 13.0 - 18.0 g/dL [facility] Immature granulocytes (Bld) [#/Vol] 0.1 10*3/uL High NINF - 0.1 10*3/uL [facility] Immature granulocytes/100 WBC (Bld) 0.5 % 0.0 - 2.0 % [facility] Interpretation and review of laboratory results Abnormal [facility] Lymphocytes (Bld) [#/Vol] 0.9 10*3/uL Low 1.0 - 4.3 10*3/uL [facility] Lymphocytes/100 WBC (Bld) 8.1 % Low 15.0 - 45.0 % [facility] MCH (RBC) [Entitic mass] 28.9 pg 26.0 - 34.0 pg [facility] MCHC (RBC) [Mass/Vol] 32.6 % 30.5 - 36.0 % [facility] MCV (RBC) [Entitic vol] 88.8 fL 77.0 - 99.0 fL [facility] Monocytes (Bld) [#/Vol] 0.5 10*3/uL 0.0 - 0.9 10*3/uL [facility] Monocytes/100 WBC (Bld) 4.7 % Low 5.0 - 13.0 % [facility] Neutrophils (Bld) [#/Vol] 9.3 10*3/uL High 1.8 - 7.5 10*3/uL [facility] Neutrophils/100 WBC (Bld) 86.3 % High 38.0 - 82.0 % [facility] Nucleated RBC/100 WBC (Bld) [Ratio] 0 % [facility] Platelet mean volume (Bld) [Entitic vol] 9.7 fL 9.0 - 12.7 fL [facility] Platelets (Bld) [#/Vol] 217 10*3/uL 140 - 440 10*3/uL [facility] RBC (Bld) [#/Vol] 4.36 10*6/uL Low 4.40 - 5.9 0 10*6/uL [facility] WBC (Bld) [#/Vol] 10.8 10*3/uL High 3.6 - 10.7 10*3/uL [facility] CBC WITH AUTO DIFFERENTIALon 04-22-2025 Basophils (Bld) [#/Vol] 0.0 10*3/uL Normal 0.0-0.2 [facility] Comment on above: Performed By: #### L [id number] ####Satellite Specialist: GRACIE SUTTON ([phone])[facility])[address] [place] [address] Basophils/100 WBC (Bld) 0.4 % Normal 0.0-2.0 [facility] Comment on above: Performed By: #### L [id number] ####Satellite Specialist: GRACIE SUTTON ([phone])[facility] ([facility])[address] [place] [address] [place] Eosinophils (Bld) [#/Vol] 0.0 10*3/uL Normal 0.0-0.5 [facility] Comment on above: Performed By: #### L [id number] ####Satellite Specialist: GRACIE SUTTON ([phone])[facility] ([facility])[address] [place] [address] [place] Eosinophils/100 WBC (Bld) 0.0 % Normal 0.0-6.0 [facility] Comment on above: Performed By: #### L [id number] ####Satellite Specialist: GRACIE SUTTON ([phone])[facility])[address] [place] [address] Erythrocyte distribution width (RBC) [Ratio] 14.2 % Normal 11.5-15.0 [facility] Comment on above: Performed By: #### L [id number] ####Satellite Specialist: GRACIE [phone])[facility])[address] [place] [address] Hematocrit (Bld) [Volume fraction] 38.7 % Low 40.0-52.0 [facility] Comment on above: Performed By: #### L [id number] ####Satellite Specialist: GRACIE SUTTON ([phone])[facility])[address] [place] [address] Hemoglobin (Bld) [Mass/Vol] 12.6 g/dL Low 13.0-18.0 [facility] Comment on above: Performed By: #### L [id number] ####Satellite Specialist: GRACIE SUTTON ([phone])[facility])[address] [place] [address] IMMATURE GRANS % 0.5 % Normal 0.0-2.0 [facility] Comment on above: Performed By: #### L [id number] ####Satellite Specialist: GRACIE SUTTON ([phone])[facility])[address] [place] [address] IMMATURE GRANS ABSOLUTE 0.1 10*3/uL High <0.1 [facility] Comment on above: Performed By: #### L [id number] ####Satellite Specialist: GRACIE SUTTON ([phone])[facility])[address] [place] [address] Lymphocytes (Bld) [#/Vol] 0.9 10*3/uL Low 1.0-4.3 [facility] Comment on above: Performed By: #### L [id number] ####Satellite Specialist: GRACIE SUTTON ([phone])[facility])[address] [place] [address] Lymphocytes/100 WBC (Bld) 8.1 % Low 15.0-45.0 [facility] Comment on above: Performed By: #### L [id number] ####Satellite Specialist: GRACIE SUTTON ([phone])[facility])[address] [place] [address] MCH (RBC) [Entitic mass] 28.9 pg Normal 26.0-34.0 [facility] Comment on above: Performed By: #### L [id number] ####Satellite Specialist: GRACIE SUTTON ([phone])[facility])[address] [place] [address] MCHC 32.6 % Normal 30.5-36.0 [facility] Comment on above: Performed By: #### L [id number] ####Satellite Specialist: GRACIE SUTTON ([phone])[facility])[address] [place] [address] MCV (RBC) [Entitic vol] 88.8 fL Normal 77.0-99.0 [facility] Comment on above: Performed By: #### L [id number] ####Satellite Specialist: GRACIE SUTTON ([phone])[facility])[address] [place] [address] Monocytes (Bld) [#/Vol] 0.5 10*3/uL Normal 0.0-0.9 [facility] Comment on above: Performed By: #### L [id number] ####Satellite Specialist: GRACIE SUTTON ([phone])[facility])[address] [place] [address] Monocytes/100 WBC (Bld) 4.7 % Low 5.0-13.0 [facility] Comment on above: Performed By: #### L [id number] ####Satellite Specialist: GRACIE SUTTON ([phone])[facility])[address] [place] [address] NEUTROPHILS ABSOLUTE 9.3 10*3/uL High 1.8-7.5 [facility] Comment on above: Performed By: #### L [id number] ####Satellite Specialist: GRACIE SUTTON ([phone])[facility])[address] [place] [address] Neutrophils/100 WBC (Bld) 86.3 % High 38.0-82.0 [facility] Comment on above: Performed By: #### L [id number] ####Satellite Specialist: GRACIE SUTTON ([phone])[facility] ([facility])[address] [place] [address] NRBC 0.0 /100 WBCs Normal 0.0-2.0 [facility] Comment on above: Performed By: #### L [id number] ####Satellite Specialist: GRACIE SUTTON ([phone])[facility])[address] [place] [address] Platelet mean volume (Bld) [Entitic vol] 9.7 fL Normal 9.0-12.7 [facility] Comment on above: Performed By: #### L [id number] ####Satellite Specialist: GRACIE SUTTON ([phone])[facility])[address] [place] [address] Platelets (Bld) [#/Vol] 217 10*3/uL Normal 140-440 [facility] Comment on above: Performed By: #### L [id number] ####Satellite Specialist: GRACIE SUTTON ([phone])[facility])[address] [place] [address] RBC (Bld) [#/Vol] 4.36 10*6/uL Low 4.40-5.90 [facility] Comment on above: Performed By: #### L [id number] ####Satellite Specialist: GRACIE SUTTON ([phone])[facility])[address] [place] [address] WBC (Bld) [#/Vol] 10.8 10*3/uL High 3.6-10.7 [facility] Comment on above: Performed By: #### L [id number] ####Satellite Specialist: GRACIE SUTTON ([phone])[facility] [facility] [place] [address] CT ANGIOGRAPHY HEAD W/ CONTR Anna Marie 04-22-2025 CT ANGIOGRAPHY HEAD W/ CONTRAST ADDENDUM ADDENDUM: Findings were discussed with Dr. Bernice Sotomayor at 9:31 p.m., 04/21/2025 EST. Interpreted by: Yadiel Leonard Preliminary Report By: Yadiel Leonard Electronically signed By Yadiel Leonard Dictated Date: 04/22/2025 12:43:40 AM Prelim Date: 04/22/2025 12:44:56 AM Sign Date: 04/22/2025 12:44:56 AM Ordering Provider: BERNICE SOTOMAYOR Interpreted by: Yadiel Leonard Preliminary Report By: Yadiel Leonard Electronically signed By Yadiel Leonard Dictated Date: 04/22/2025 12:43:40 AM Prelim Date: 04/22/2025 12:44:56 AM Sign Date: 04/22/2025 12:44:56 AM Ordering Provider: BERNICE SOTOMAYOR ORIGINAL EXAMINATION: CTA OF THE HEAD WITH CONTRAST 04/21/2025 10:02 pm: TECHNIQUE: CTA of the head/brain was performed with the administration of intravenous contrast. Multiplanar reformatted images are provided for review. MIP images are provided for review. Automated exposure control, iterative reconstruction, and/or weight based adjustment of the mA/kV was utilized to reduce the radiation dose to as low as reasonably achievable. COMPARISON: None. HISTORY: ORDERING SYSTEM PROVIDED HISTORY: Reason for Exam: Stroke Emergency FINDINGS: There are mild-moderate calcified plaques of the bilateral internal carotid cavernous segments with mild-moderate stenoses. The right middle cerebral artery is patent. 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 There is decreased flow noted of left MCA M3 cortical segments. The right anterior cerebral artery is patent. The left anterior cerebral artery is patent. The bilateral distal vertebral arteries are patent. The basilar artery is patent. The right posterior cerebral artery is patent. The left posterior cerebral artery is patent. There is no aneurysm. OTHER: No dural venous sinus thrombosis on this non-dedicated study. BRAIN: There is mild edema of left basal ganglia and left insula, extending to mid left frontal lobe compatible with early infarct. IMPRESSION: 1. 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 2. Mild edema of left basal ganglia and left insula, extending to mid left frontal lobe compatible with early infarct. 3. Mild-moderate calcified plaques of the bilateral internal carotid cavernous segments with mild-moderate stenoses. Interpreted by: Yadeil Leonard Preliminary Report By: Yadiel Leonard Electronically signed By Yadiel Leonard Dictated Date: 04/21/2025 10:10:07 PM Prelim Date: 04/21/2025 10:21:48 PM Sign Date: 04/21/2025 10:21:48 PM Ordering Provider: BERNICE SOTOMAYOR Interpreted by: Yadiel Leonard Preliminary Report By: Yadiel Leonard Electronically signed By Yadiel Leonard Dictated Date: 04/21/2025 10:10:07 PM Prelim Date: 04/21/2025 10:21:48 PM Sign Date: 04/21/2025 10:21:48 PM Ordering Provider: BERNICE SOTOMAYOR [facility] CT Head WO contraston 2024 Radiology Study observation (narrative) [facility] Calcium.ionized [Moles/Vol]o n 04-22-2025 Calcium.ionized (Bld) [Moles/Vol] 4.5 mg/dL 4.30 - 5.20 mg/dL [facility] Interpretation and review of laboratory results Normal [facility] PH, IONIZED CALCIUM 7.38 7.31 - 7.46 [facility] ECG 12-LEADon 04-22-2025 ECG 12-LEAD IMPRESSION: Sinus rhythm Short CA interval Right bundle branch block Electronically Signed On 04-22-2025 06:52:03 EDT by Alfredo Solitario [facility] HEMOGLOBIN A1Con 04-22-2025 Glucose [Mass/Vol] 157 mg/dL Normal [facility] Comment on above: Result Comment: ORDE R COMMENTS:HbA1c values of 5.7-6.4 percent indicate an increased risk for developing diabetes mellitus. HbA1c values greater than or equal to 6.5 percent are diagnostic of diabetes mellitus. For diagnosis of diabetes in individuals without unequivocal hyperglycemia, results should be confirmed by repeat testing. Performed By: #### L [id number] ####Satellite Specialist: GRACIE SUTTON ([phone])[facility] ([address] HEMOGLOBIN A1C 7.1 %HbA1C High <5.[address] [facility] Comment on above: Result Comment: Norm al less than 5.7%Prediabetes 5.7% to 6.4%Diabetes 6.5% or higher--HgbA1C levels may not be accurate in patients who have renal disease, received recent blood transfusions, are anemic, or who have dyshemoglobinemia. Performed By: #### L [id number] ####Satellite Specialist: GRACIE SUTTON ([phone])[facility] ([facility])[address] [place] [address] HIGH SENSITIVITY TROPONIN, S ERIAL, SECOND TESTon 04-22-2025 2H TROPONIN HS (SERIAL 2ND TROPONIN) 7 ng/L Normal <=35 [facility] Comment on above: Result Comment: Risi ng or falling troponin delta below 2 ng/L as compared to baseline value suggests thatacute cardiac injury is unlikely. Performed By: #### L [id number] ####Satellite Specialist: GRACIE SUTTON ([phone])[facility] ([facility])[address] [place] [address] LIPID PANELon 04-22-2025 Cholesterol [Mass/Vol] 62 mg/dL Normal <200 [facility] Comment on above: Performed By: #### L AB113, LAB18, LAB15, [id number] ####Satellite Specialist: GRACIE SUTTON ([phone])[facility] ([facility])[address] [place] [address] Cholesterol in HDL [Mass/Vol] 37 mg/dL Low >=60 [facility] Comment on above: Performed By: #### L AB113, LAB18, LAB15, [id number] ####Satellite Specialist: GRACIE SUTTON ([phone])[facility] ([facility])[address] [place] [address] Cholesterol.total/Lesley sterol in HDL [Mass ratio] 2 {ratio} Normal [facility] Comment on above: Result Comment: Ref Range:< 3 Low Risk for CHD3-6 Mod Risk for CHD> 6 High Risk for CHD Performed By: #### L AB113, LAB18, LAB15, [id number] ####Satellite Specialist: GRACIE SUTTON ([phone])[facility] [place] [address] LOW DENSITY LIPOPROTEIN 11 mg/dL Normal 0-<100 [facility] Comment on above: Performed By: #### L AB113, LAB18, LAB15, [id number] ####Satellite Specialist: GRACIE SUTTON ([phone])[facility] ([facility])[address] [place] [address] NON-HDL CHOLESTEROL, CALCULATED 25 Normal <130 [facility] Comment on above: Performed By: #### L AB113, LAB18, LAB15, [id number] ####Satellite Specialist: GRACIE SUTTON ([phone])[facility] [place] [address] Triglyceride [Mass/Vol] 72 mg/dL Normal <150 [facility] Comment on above: Performed By: #### L AB113, LAB18, LAB15, [id number] ####Satellite Specialist: GRACIE SUTTON ([phone])[facility] [place] [address] VERY LOW DENSITY LIPOPROTEIN, CALCULATED 14 mg/dL Normal <=30 [facility] Comment on above: Performed By: #### L AB113, LAB18, LAB15, [id number] ####Satellite Specialist: GRACIE SUTTON ([phone])[facility] ([facility])[address] [place] [address] Laboratory - Chemistry and C hemistry - challengeon 04-22-2025 Glucose [Mass/Vol] 109 mg/dL High 70 - 100 mg/dL [facility] Glucose [Mass/Vol] 145 mg/dL High 70 - 100 mg/dL [facility] Glucose [Mass/Vol] 136 mg/dL High 70 - 100 mg/dL [facility] Glucose [Mass/Vol] 156 mg/dL High 70 - 100 mg/dL [facility] Average glucose Estimated from glycated hemoglobin (Bld) [Mass/Vol] 157 mg/dL [facility] Magnesium [Mass/Vol] 1.6 mg/dL 1.6 - 2 .6 mg/dL [facility] Laboratory - Coagulationon 0 04-22-2025 PT Coag (Bld) [Time] 10.3 s 9.0 - 12.0 s [facility] Laboratory - Hematology and Cell countson 04-22-2025 HbA1c (Bld) [Mass fraction] 7.1 % High NINF [facility] Lipid 1996 panelon 5 Cholesterol [Mass/Vol] 62 mg/dL NINF - 200 mg/dL [facility] Cholesterol in HDL [Mass/Vol] 37 mg/dL Low 60 - PINF mg/dL [facility] Cholesterol in LDL [Mass/Vol] 11 mg/dL 0 - <100 [facility] Cholesterol.total/Lesley sterol in HDL [Mass ratio] 2 {ratio} [facility] NON-HDL CHOLESTEROL, CALCULATED 25 NINF - 130 [facility] Triglyceride [Mass/Vol] 72 mg/dL NINF - 150 mg/dL [facility] VERY LOW DENSITY LIPOPROTEIN, CALCULATED 14 mg/dL NINF - 30 mg/dL [facility] MAGNESIUMon 04-22-2025 Magnesium [Mass/Vol] 1.6 mg/dL Normal 1.6-2.6 [facility] Comment on above: Result Comment: TERRELL Ramirez COMMENTS:Higher values can be expected in females during menses. Performed By: #### L AB113, LAB18, LAB15, [id number] ####Satellite Specialist: GRACIE SUTTON ([phone])[facility] ([address] MR Brain WO contraston 04-22 [facility] [place] [facility] RADIOLOGY [facility] Radiology Study observation (narrative) [facility] MR Brain WO contrastOrdered By: Piter Waldron on 04-22-2025 [facility] Work Phone: Magnesium [Mass/Vol]on 04-22 [facility] No Panel Informationon 04-22 Interpretation and review of laboratory results Abnormal [facility] Interpretation and review of laboratory results Abnormal [facility] Interpretation and review of laboratory results Abnormal [facility] CV EPIPHANY [facility] Interpretation and review of laboratory results Abnormal [facility] Interpretation and review of laboratory results Abnormal [facility] Interpretation and review of laboratory results Abnormal [facility] Interpretation and review of laboratory results Normal [facility] 2h Troponin HS (Serial 2nd Troponin) 7 ng/L NINF - 35 ng/L [facility] Interpretation and review of laboratory results Normal [facility] Interpretation and review of laboratory results Normal [facility] Troponin HS Serial Baseline 6 ng/L NINF - 35 ng/L [email or web address] No Panel InformationOrdered By: Alfredo Solitario on 04-22-2025 P Boaz 117 degrees [email or web address] Work Phone: CA Interval 80 ms [email or web address] Work Phone: QRS Boaz -3 degrees [email or web address] Work Phone: QRSD Interval 144 ms [employer] Work Phone: QT Interval 400 ms [email or web address] Work Phone: QTC Interval 485 ms [email or web address] Work Phone: T Wave Boaz 22 degrees [facility] [employer] [facility] Work Phone: [email or web address] Work Phone: Nursing Noteon 04-22-2025 Nursing Note Normal [facility] Op Noteon 04-22-2025 Op Note Normal [facility] PHOSPHORUSon 04-22-2025 Phosphate [Mass/Vol] 3.1 mg/dL Normal 2.3-4.7 [facility] Comment on above: Performed By: #### L AB113, LAB18, LAB15, [id number] ####Satellite Specialist: GRACIE SUTTON ([phone])[address] PT Coag (Bld) [Time]on 04-22 INR Coag (PPP) [Relative time] 1 {INR} 0.9 - 1.1 [facility] Interpretation and review of laboratory results Normal [facility] Phosphate [Moles/Vol]on 03-27 Phosphate [Mass/Vol] 3.1 mg/dL 2.3 - 4 .7 mg/dL [email or web address] Progress Noteon 04-22-2025 Progress Note Normal [facility] Progress Note MRI shows possible left basal ganglia hemorrhagic transformation, up to 1.2 cm. Reviewed findings with Dr. Jeffery. No changes at this time. Electronically signed by Bobbi Charles MD at 5:45 PM Normal [facility] Progress Note Normal [facility] Progress Note Patient did not answer own screening for MRI, therefore we will need a Chest xray, KUB and Orbit xrays for MRI clearance please Normal [facility] RFA Cerebral arteries Bilate ral Views W contrast IAon 04-22-2025 [facility] Vital signsOrdered By: Alfredo Solitario on 04-22-2025 Heart rate 88 /min bpm [facility] [employer] Phone: XR ABDOMEN 1 VIEWon 04-22-20 25 XR ABDOMEN 1 VIEW Normal [facility] XR Abdomen Single viewon [facility] Radiology Study observation (narrative) [facility] XR CHEST 1 VIEWon 04-22-2025 XR CHEST 1 VIEW Normal [facility] XR Chest Single viewon 04-22 [facility] Radiology Study observation (narrative) [facility] XR EYE FOREIGN BODY BILATERA Bj 04-22-2025 XR EYE FOREIGN BODY BILATERAL Normal [facility] XR Orbit Views for foreign b odyon 04-22-2025 [facility] Radiology Study observation (narrative) [facility] Orbit Views for foreign b odyOrdered By: Alfredo Tirado on 04-22-2025 [facility] Phone: .Auto Diffon 04-21-2025 Basophil, Absolute 0.1 10 3/mcL Normal 0.0-0.3 [facility] Comment on above: Performed By: #### A PTT, TROPHS, ADIFF, PRO, ANEU, MORPH, GFR, MDW, BMP, CBC #### [address] [address] Basophils/100 WBC (Bld) 0.7 % Normal 0.0-2.5 [facility] Comment on above: Performed By: #### A PTT, TROPHS, ADIFF, PRO, ANEU, MORPH, GFR, MDW, BMP, CBC #### [address] [address] Eosinophil, Absolute 0.4 10 3/mcL Normal 0.0-0.7 [facility] Comment on above: Performed By: #### A PTT, TROPHS, ADIFF, PRO, ANEU, MORPH, GFR, MDW, BMP, CBC #### [address] [address] Eosinophils/100 WBC (Bld) 5.1 % Normal 0.0-6.0 [facility] Comment on above: Performed By: #### A PTT, TROPHS, ADIFF, PRO, ANEU, MORPH, GFR, MDW, BMP, CBC #### [address] [address] Lymphocyte, Absolute 1.5 10 3/mcL Normal 0.9-4.3 [facility] Comment on above: Performed By: #### A PTT, TROPHS, ADIFF, PRO, ANEU, MORPH, GFR, MDW, BMP, CBC #### [address] [address] Lymphocytes/100 WBC (Bld) 17.0 % Low 20.0-40.0 [facility] Comment on above: Performed By: #### A PTT, TROPHS, ADIFF, PRO, ANEU, MORPH, GFR, MDW, BMP, CBC #### [address] [address] Monocyte, Absolute 1.0 10 3/mcL Normal 0.1-1.4 [facility] Comment on above: Performed By: #### A PTT, TROPHS, ADIFF, PRO, ANEU, MORPH, GFR, MDW, BMP, CBC #### [address] [address] Monocytes/100 WBC (Bld) 11.6 % Normal 2.0-13.0 [facility] Comment on above: Performed By: #### A PTT, TROPHS, ADIFF, PRO, ANEU, MORPH, GFR, MDW, BMP, CBC #### [address] [address] Neutrophils/100 WBC (Bld) 65.6 % Normal 50.0-75.0 [facility] Comment on above: Performed By: #### A PTT, TROPHS, ADIFF, PRO, ANEU, MORPH, GFR, MDW, BMP, CBC #### [address] [address] .GFRon 04-21-2025 Estimated Glomerular Filtration Rate 49 ml/min/1.73sqm Normal [facility] Comment on above: Result Comment: Stages of Chronic Kidney Disease (CKD) Stage Description eGFR(ml/min/1.73 sq.m.) CKD 1 Normal kidney function or >=90 normal kindney function with possible kidney damage (ex. Proteinuria) CKD 2 Kidney damage with mild loss 60-89 of kidney function CKD 3a Mild to moderate loss of kidney 45-59 function CKD 3b Moderate to severe loss of 30-44 of kindey function CKD 4 Severe loss of kidney function 15-29 CKD 5 Kidney failure <15 Note: (go live 2024) the eGFR calculation was updated to the 2020 CKD-EPI creatinine equation without a race factor to calculate the eGFR results. Performed By: #### A PTT, TROPHS, ADIFF, PRO, ANEU, MORPH, GFR, MDW, BMP, CBC #### [address] [address] .MDWon 04-21-2025 Monocyte Distribution Width Not performed Normal 0.00-20.00 [facility] Comment on above: Result Comment: MDW testing performed only on adult ER patients between the ages of 18-89 years. Performed By: #### A PTT, TROPHS, ADIFF, PRO, ANEU, MORPH, GFR, MDW, BMP, CBC #### [address] [address] .Morphon 04-21-2025 Platelet Estimate Normal Normal [facility] Comment on above: Performed By: #### A PTT, TROPHS, ADIFF, PRO, ANEU, MORPH, GFR, MDW, BMP, CBC #### [address] [address] .NEUABSon 04-21-2025 Neutrophil, Absolute 5.7 10 3/mcL Normal 2.3-8.1 [facility] Comment on above: Performed By: #### A PTT, TROPHS, ADIFF, PRO, ANEU, MORPH, GFR, MDW, BMP, CBC #### [address] [address] APTTon 04-21-2025 aPTT Coag (Bld) [Time] 29.4 s Normal 25.0-35.0 [facility] Comment on above: Result Comment: For Heparin anticoagulation therapy, the recommended therapeutic range is: 45.4-75.9 seconds. Patients on heparin therapy may have an extreme result. Performed By: #### A PTT, TROPHS, ADIFF, PRO, ANEU, MORPH, GFR, MDW, BMP, CBC #### [address] [address] Anesthesia Noteon 04-21-2025 Anesthesia Note Normal [facility] BMPon 04-21-2025 BUN/Creatinine Ratio 27 ratio Normal 7-27 [facility] Comment on above: Performed By: #### A PTT, TROPHS, ADIFF, PRO, ANEU, MORPH, GFR, MDW, BMP, CBC #### [address] [address] Calcium [Mass/Vol] 9.4 mg/dL Normal 8.4-10.2 [facility] Comment on above: Performed By: #### A PTT, TROPHS, ADIFF, PRO, ANEU, MORPH, GFR, MDW, BMP, CBC #### [address] [address] Chloride [Moles/Vol] 105 mmol/L Normal 98-107 [facility] Comment on above: Performed By: #### A PTT, TROPHS, ADIFF, PRO, ANEU, MORPH, GFR, MDW, BMP, CBC #### [address] [address] CO2 [Moles/Vol] 27 mmol/L Normal 23-31 [facility] Comment on above: Performed By: #### A PTT, TROPHS, ADIFF, PRO, ANEU, MORPH, GFR, MDW, BMP, CBC #### [address] [address] Creatinine [Mass/Vol] 1.47 mg/dL High 0.67-1.17 [facility] Comment on above: Performed By: #### A PTT, TROPHS, ADIFF, PRO, ANEU, MORPH, GFR, MDW, BMP, CBC #### [address] [address] Electrolyte Balance 9.0 mEq/L Normal 4.0-15.0 [facility] Comment on above: Performed By: #### A PTT, TROPHS, ADIFF, PRO, ANEU, MORPH, GFR, MDW, BMP, CBC #### [address] [address] Glucose [Mass/Vol] 196 mg/dL High 83-110 [facility] Comment on above: Performed By: #### A PTT, TROPHS, ADIFF, PRO, ANEU, MORPH, GFR, MDW, BMP, CBC #### [address] [address] Potassium [Moles/Vol] 4.5 mmol/L Normal 3.5-5.1 [facility] Comment on above: Performed By: #### A PTT, TROPHS, ADIFF, PRO, ANEU, MORPH, GFR, MDW, BMP, CBC #### [address] [address] Sodium [Moles/Vol] 141 mmol/L Normal 136-145 [facility] Comment on above: Performed By: #### A PTT, TROPHS, ADIFF, PRO, ANEU, MORPH, GFR, MDW, BMP, CBC #### [address] [address] Urea nitrogen [Mass/Vol] 39 mg/dL High 7-18 [facility] Comment on above: Performed By: #### A PTT, TROPHS, ADIFF, PRO, ANEU, MORPH, GFR, MDW, BMP, CBC #### [address] [address] CBCon 04-21-2025 Erythrocyte distribution width (RBC) [Ratio] 15.2 % Normal 11.5-15.5 [facility] Comment on above: Performed By: #### A PTT, TROPHS, ADIFF, PRO, ANEU, MORPH, GFR, MDW, BMP, CBC #### [address] [address] Hematocrit (Bld) [Volume fraction] 38.1 % Low 40.0-52.0 [facility] Comment on above: Performed By: #### A PTT, TROPHS, ADIFF, PRO, ANEU, MORPH, GFR, MDW, BMP, CBC #### [address] [address] Hgb 12.8 G/dL Low 13.0-17.5 [facility] Comment on above: Performed By: #### A PTT, TROPHS, ADIFF, PRO, ANEU, MORPH, GFR, MDW, BMP, CBC #### [address] [address] MCH (RBC) [Entitic mass] 29.4 pg Normal 27.0-33.0 [facility] Comment on above: Performed By: #### A PTT, TROPHS, ADIFF, PRO, ANEU, MORPH, GFR, MDW, BMP, CBC #### [address] [address] MCHC 33.7 G/dL Normal 32.0-36.0 [facility] Comment on above: Performed By: #### A PTT, TROPHS, ADIFF, PRO, ANEU, MORPH, GFR, MDW, BMP, CBC #### [address] [address] MCV (RBC) [Entitic vol] 87.1 fL Normal 81.0-100.0 [facility] Comment on above: Performed By: #### A PTT, TROPHS, ADIFF, PRO, ANEU, MORPH, GFR, MDW, BMP, CBC #### [address] [address] Platelet 223 10 3/mcL Normal 150-450 [facility] Comment on above: Performed By: #### A PTT, TROPHS, ADIFF, PRO, ANEU, MORPH, GFR, MDW, BMP, CBC #### [address] [address] Platelet mean volume (Bld) [Entitic vol] 7.6 fL Normal 6.4-10.5 [facility] Comment on above: Performed By: #### A PTT, TROPHS, ADIFF, PRO, ANEU, MORPH, GFR, MDW, BMP, CBC #### [address] [address] RBC 4.37 10 6/mcL Low 4.50-6.00 [facility] Comment on above: Performed By: #### A PTT, TROPHS, ADIFF, PRO, ANEU, MORPH, GFR, MDW, BMP, CBC #### [address] [address] WBC 8.8 10 3/mcL Normal 4.5-10.8 [facility] Comment on above: Performed By: #### A PTT, TROPHS, ADIFF, PRO, ANEU, MORPH, GFR, MDW, BMP, CBC #### [address] [address] CBC W Auto Differential pane l (Bld)on 04-21-2025 Basophils (Bld) [#/Vol] 0.1 10*3/uL 0.0 - 0.2 10*3/uL [facility] Basophils/100 WBC (Bld) 0.6 % 0.0 - 2.0 % [facility] Eosinophils (Bld) [#/Vol] 0.1 10*3/uL 0.0 - 0.5 10*3/uL [facility] Eosinophils/100 WBC (Bld) 0.9 % 0.0 - 6.0 % [facility] Erythrocyte distribution width (RBC) [Ratio] 14 % 11.5 - 15.0 % [facility] Hematocrit (Bld) [Volume fraction] 39.9 % Low 40.0 - 52.0 % [facility] Hemoglobin (Bld) [Mass/Vol] 13.4 g/dL 13.0 - 18.0 g/dL [facility] Immature granulocytes (Bld) [#/Vol] 0.1 10*3/uL High NINF - 0.1 10*3/uL [email or web address] Immature granulocytes/100 WBC (Bld) 0.6 % 0.0 - 2.0 % [facility] Interpretation and review of laboratory results Abnormal [email or web address] Lymphocytes (Bld) [#/Vol] 1.3 10*3/uL 1.0 - 4.3 10*3/uL [facility] Lymphocytes/100 WBC (Bld) 8.2 % Low 15.0 - 45.0 % [facility] MCH (RBC) [Entitic mass] 29.2 pg 26.0 - 34.0 pg [facility] MCHC (RBC) [Mass/Vol] 33.6 % 30.5 - 36.0 % [facility] MCV (RBC) [Entitic vol] 86.9 fL 77.0 - 99.0 fL [facility] Monocytes (Bld) [#/Vol] 0.7 10*3/uL 0.0 - 0.9 10*3/uL [facility] Monocytes/100 WBC (Bld) 4.4 % Low 5.0 - 13.0 % [facility] Neutrophils (Bld) [#/Vol] 13.5 10*3/uL High 1.8 - 7.5 10*3/uL [facility] Neutrophils/100 WBC (Bld) 85.3 % High 38.0 - 82.0 % [email or web address] Nucleated RBC/100 WBC (Bld) [Ratio] 0 % [facility] Platelet mean volume (Bld) [Entitic vol] 9.9 fL 9.0 - 12.7 fL [facility] Platelets (Bld) [#/Vol] 236 10*3/uL 140 - 440 10*3/uL [facility] RBC (Bld) [#/Vol] 4.59 10*6/uL 4.40 - 5.9 0 10*6/uL [facility] WBC (Bld) [#/Vol] 15.8 10*3/uL High 3.6 - 10.7 10*3/uL [facility] CBC WITH AUTO DIFFERENTIALon 04-21-2025 Basophils (Bld) [#/Vol] 0.1 10*3/uL Normal 0.0-0.2 [facility] Comment on above: Performed By: #### L [id number] ####Satellite Specialist: GRACIE SUTTON ([phone])[facility] ([facility])[address] [place] [address] Basophils/100 WBC (Bld) 0.6 % Normal 0.0-2.0 [facility] Comment on above: Performed By: #### L [id number] ####Satellite Specialist: GRACIE SUTTON ([phone])[facility])[address] [place] [address] Eosinophils (Bld) [#/Vol] 0.1 10*3/uL Normal 0.0-0.5 [facility] Comment on above: Performed By: #### L [id number] ####Satellite Specialist: GRACIE SUTTON ([phone])[facility])[address] [place] [address] Eosinophils/100 WBC (Bld) 0.9 % Normal 0.0-6.0 [facility] Comment on above: Performed By: #### L [id number] ####Satellite Specialist: GRACIE SUTTON ([phone])[facility])[address] [place] [address] Erythrocyte distribution width (RBC) [Ratio] 14.0 % Normal 11.5-15.0 [facility] Comment on above: Performed By: #### L [id number] ####Satellite Specialist: GRACIE SUTTON ([phone])[address] Hematocrit (Bld) [Volume fraction] 39.9 % Low 40.0-52.0 [facility] Comment on above: Performed By: #### L [id number] ####Satellite Specialist: GRACIE SUTTON ([phone])[facility])[address] [place] [address] Hemoglobin (Bld) [Mass/Vol] 13.4 g/dL Normal 13.0-18.0 [facility] Comment on above: Performed By: #### L [id number] ####Satellite Specialist: GRACIE SUTTON ([phone])[facility] [address] IMMATURE GRANS % 0.6 % Normal 0.0-2.0 [facility] Comment on above: Performed By: #### L [id number] ####Satellite Specialist: GRACIE SUTTON ([phone])[facility])[address] [place] [address] IMMATURE GRANS ABSOLUTE 0.1 10*3/uL High <0.1 [facility] Comment on above: Performed By: #### L [id number] ####Satellite Specialist: GRACIE SUTTON ([phone])[facility])[address] [place] [address] Lymphocytes (Bld) [#/Vol] 1.3 10*3/uL Normal 1.0-4.3 [facility] Comment on above: Performed By: #### L [id number] ####Satellite Specialist: GRACIE SUTTON ([phone])[facility])[address] [place] [address] Lymphocytes/100 WBC (Bld) 8.2 % Low 15.0-45.0 [facility] Comment on above: Performed By: #### L [id number] ####Satellite Specialist: GRACIE SUTTON ([phone])[facility])[address] [place] [address] MCH (RBC) [Entitic mass] 29.2 pg Normal 26.0-34.0 [facility] Comment on above: Performed By: #### L [id number] ####Satellite Specialist: GRACIE SUTTON ([phone])[facility])[address] [place] [address] MCHC 33.6 % Normal 30.5-36.0 [facility] Comment on above: Performed By: #### L [id number] ####Satellite Specialist: GRACIE SUTTON ([phone])[facility])[address] [place] [address] MCV (RBC) [Entitic vol] 86.9 fL Normal 77.0-99.0 [facility] Comment on above: Performed By: #### L [id number] ####Satellite Specialist: GRACIE SUTTON ([phone])[facility] ([facility])[address] [place] [address] Monocytes (Bld) [#/Vol] 0.7 10*3/uL Normal 0.0-0.9 [facility] Comment on above: Performed By: #### L [id number] ####Satellite Specialist: GRACIE SUTTON ([phone])[facility] ([facility])[address] [place] [address] Monocytes/100 WBC (Bld) 4.4 % Low 5.0-13.0 S [facility] Comment on above: Performed By: #### L [id number] ####Satellite Specialist: GRACIE SUTTON ([phone])[facility] ([facility])[address] [place] [address] NEUTROPHILS ABSOLUTE 13.5 10*3/uL High 1.8-7.5 [facility] Comment on above: Performed By: #### L [id number] ####Satellite Specialist: GRACIE SUTTON ([phone])[facility] ([facility])[address] [place] [address] Neutrophils/100 WBC (Bld) 85.3 % High 38.0-82.0 [facility] Comment on above: Performed By: #### L [id number] ####Satellite Specialist: GRACIE SUTTON ([phone])[facility])[address] [place] [address] NRBC 0.0 /100 WBCs Normal 0.0-2.0 [facility] Comment on above: Performed By: #### L [id number] ####Satellite Specialist: GRACIE SUTTON ([phone])[facility])[address] [place] [address] Platelet mean volume (Bld) [Entitic vol] 9.9 fL Normal 9.0-12.7 [facility] Comment on above: Performed By: #### L [id number] ####Satellite Specialist: GRACIE SUTTON ([phone])[facility] ([facility])[address] [place] [address] Platelets (Bld) [#/Vol] 236 10*3/uL Normal 140-440 [facility] Comment on above: Performed By: #### L [id number] ####Satellite Specialist: GRACIE SUTTON ([phone])[facility])[address] [place] [address] RBC (Bld) [#/Vol] 4.59 10*6/uL Normal 4.40-5.90 [facility] Comment on above: Performed By: #### L [id number] ####Satellite Specialist: GRACIE SUTTON ([phone])[facility])[address] [place] [address] WBC (Bld) [#/Vol] 15.8 10*3/uL High 3.6-10.7 [facility] Comment on above: Performed By: #### L [id number] ####Satellite Specialist: GRACIE SUTTON ([phone])[facility] ([facility])[address] [place] [address] CT ANGIOGRAPHY NECK W/CONTRA STon 04-21-2025 CT ANGIOGRAPHY NECK W/CONTRAST ORIGINAL EXAMINATION: CTA OF THE NECK 04/21/2025 TECHNIQUE: CTA of the neck was performed with the administration of intravenous contrast. Multiplanar reformatted images are provided for review. MIP images are provided for review. Stenosis of the internal carotid arteries measured using NASCET criteria. Automated exposure control, iterative reconstruction, and/or weight based adjustment of the mA/kV was utilized to reduce the radiation dose to as low as reasonably achievable. COMPARISON: CT head same day. HISTORY: ORDERING SYSTEM PROVIDED HISTORY: Reason for Exam: Stroke Emergency FINDINGS: BONES/SOFT TISSUES: No acute osseous or soft tissue abnormality. Multilevel degenerative changes of the visualized spine. AORTIC ARCH/ARCH VESSELS: The aortic arch is normal in caliber and atherosclerotic. No hemodynamically significant stenosis is noted the origins of the great vessels. VERTEBRAL ARTERIES: The bilateral vertebral arteries are patent without evidence of hemodynamically significant stenosis or other acute abnormality. CAROTID ARTERIES: The visualized bilateral internal carotid arteries are patent without evidence of hemodynamically significant stenosis or other acute abnormality. Bilateral carotid bulb atherosclerosis. ADDITIONAL COMMENTS: No acute abnormality visualized lungs. Mucosal thickening in the bilateral maxillary sinuses. IMPRESSION: No significant vessel stenosis is identified. I have reviewed the resident's preliminary report and agree with findings and impression. Interpreted by: Jono Murphy Preliminary Report By: Chuy Pizano Electronically signed By Jono Murphy Dictated Date: 04/21/2025 10:19:51 PM Prelim Date: 04/21/2025 10:27:04 PM Sign Date: 04/21/2025 10:30:07 PM Ordering Provider: BERNICE SOTOMAYOR Interpreted by: Jono Murphy Preliminary Report By: Chuy Pizano Electronically signed By Jono Murphy Dictated Date: 04/21/2025 10:19:51 PM Prelim Date: 04/21/2025 10:27:04 PM Sign Date: 04/21/2025 10:30:07 PM Ordering Provider: BERNICE SOTOMAYOR Normal [facility] CT HEAD OR BRAIN W/O CONTRAS Ton 04-21-2025 CT HEAD OR BRAIN W/O CONTRAST ORIGINAL EXAMINATION: CT OF THE HEAD WITHOUT CONTRAST 04/21/2025 9:04 pm TECHNIQUE: CT of the head was performed without the administration of intravenous contrast. Automated exposure control, iterative reconstruction, and/or weight based adjustment of the mA/kV was utilized to reduce the radiation dose to as low as reasonably achievable. COMPARISON: None. HISTORY: ORDERING SYSTEM PROVIDED HISTORY: Reason for Exam: Stroke alert change in mental status/weakness/apha leonides FINDINGS: There is no acute intracranial hemorrhage, mass effect, or abnormal extra-axial fluid collection. There is no CT evidence of acute infarct. The density in the larger dural venous sinuses is grossly normal. No hydrocephalus. Mild parenchymal atrophy with proportional ventriculomegaly and sulcal widening. Scattered white matter hypodensities are present which are nonspecific but likely represent chronic microvascular angiopathy. Atherosclerosis of bilateral cavernous carotid arteries. No acute bony findings. Grossly clear paranasal sinuses and mastoid air cells. IMPRESSION: No acute intracranial abnormality identified. Results were called by Chuy Pizano to Bernice Sotomayor at 9:13 p.m. Preliminary Report was Dictated by a Resident ATTENDING ADDENDUM: HYPERDENSE LEFT MCA SIGN, WHICH IS A NONCONTRAST SIGNS SUSPICIOUS FOR THROMBUS. OTHERWISE, AGREE WITH ABOVE THAT THERE IS NO CURRENT CT EVIDENCE OF ACUTE INFARCT, ALTHOUGH CT IS INSENSITIVE FOR EARLY CHANGES OF ISCHEMIA. ADDENDUM DISCUSSED with BERNICE SOTOMAYOR at 9:46 pm on 04/21/[address] Murphy Interpreted by: Jono Murphy Preliminary Report By: Chuy Pizano Electronically signed By Jono Murphy Dictated Date: 04/21/2025 9:10:58 PM Prelim Date: 04/21/2025 9:20:17 PM Sign Date: 04/21/2025 9:47:08 PM Ordering Provider: BERNICE SOTOMAYOR Interpreted by: Jono Murphy Preliminary Report By: Chuy Pizano Electronically signed By Jono Murphy Dictated Date: 04/21/2025 9:10:58 PM Prelim Date: 04/21/2025 9:20:17 PM Sign Date: 04/21/2025 9:47:08 PM Ordering Provider: BERNICE SOTOMAYOR Normal [facility] Consulton 04-21-2025 Consult Normal [facility] ED Provider Noteon ED Provider Note Normal [facility] HIGH SENSITIVITY TROPONIN, S ERIAL BASELINEon 04-21-2025 TROPONIN HS SERIAL BASELINE 6 ng/L Normal <=35 [facility] Comment on above: Result Comment: In i ndividuals presenting with symptoms > 2h, a baseline troponin <= 5 ng/L suggests acutecardiac injury is unlikely and further serial testing is generally not indicated. Performed By: #### L [id number] ####Satellite Specialist: GRACIE SUTTON ([phone])[facility] ([address] LABORATORYOrdered By: Italo Arora on 04-21-2025 Glucose [Mass/Vol] 190 mg/dL High 82 - 115 mg/dL [facility] LABORATORYOrdered By: SYSTEM SYSTEM on 04-21-2025 aPTT Coag (PPP) [Time] 29.4 s Normal 25.0 - 35.0 seconds AO [facility] SS Comment on above: Interpretive Data: F or Heparin anticoagulation therapy, the recommended therapeutic range is: 45.4-75.9 seconds. Patients on heparin therapy may have an extreme result. Basophils (Bld) [#/Vol] 0.1 103/mcL Normal 0.0 - 0.3 10^3/mcL AO Workflow SS Basophils/100 WBC (Bld) 0.7 % Normal 0.0 - 2.5 % AO Workflow SS Calcium [Mass/Vol] 9.4 mg/dL Normal 8.4 - 10. 2 mg/dL AO ADM SS Chloride [Moles/Vol] 105 mmol/L Normal 98 - 10 7 mmol/L AO ADM SS CO2 [Moles/Vol] 27 mmol/L Normal 23 - 31 mmol/L AO ADM SS Creatinine [Mass/Vol] 1.47 mg/dL High 0.67 - 1.17 mg/dL AO ADM SS Electrolyte Balance 9.0 mEq/L Normal 4.0 - 15 .0 mEq/L AO ADM SS Eosinophil, Absolute 0.4 103/mcL Normal 0.0 - 0 .7 10^3/mcL AO Workflow SS Eosinophils/100 WBC (Bld) 5.1 % Normal 0.0 - 6.0 % AO Workflow SS Erythrocyte distribution width (RBC) [Ratio] 15.2 % Normal 11.5 - 15.5 % AO Workflow SS Estimated Glomerular Filtration Rate 49 ml/min/1.73sqm Invalid Interpretation Code AO Chemistry S Comment on above: Interpretive Data: Stages of Chronic Kidney Disease (CKD) Stage Description eGFR(ml/min/1.73 sq.m.) CKD 1 Normal kidney function or >=90 normal kindney function with possible kidney damage (ex. Proteinuria) CKD 2 Kidney damage with mild loss 60-89 of kidney function CKD 3a Mild to moderate loss of kidney 45-59 function CKD 3b Moderate to severe loss of 30-44 of kindey function CKD 4 Severe loss of kidney function 15-29 CKD 5 Kidney failure <15 Note: (go live 2024) the eGFR calculation was updated to the 2020 CKD-EPI creatinine equation without a race factor to calculate the eGFR results. Glucose [Mass/Vol] 196 mg/dL High 83 - 110 mg/dL AO ADM SS Hematocrit (Bld) [Volume fraction] 38.1 % Low 40.0 - 52.0 % AO Workflow SS Hemoglobin (Bld) [Mass/Vol] 12.8 G/dL Low 13.0 - 17.5 G/dL AO Workflow SS INR Coag (PPP) [Relative time] 1.0 {INR} Invalid Interpretation Code AO [facility] SS Comment on above: Interpretive Data: Enid ziegler [employer] (CHEST, 1991, 102:312S-25S) recommended therapeutic range for oral anticoagulant therapy is: LOW RISK: Prophylaxis of venous thrombosis INR: 2.0-3.0 Treatment of pulmonary embolism 2.0-3.0 Prevention of systemic embolism 2.0-3.0 HIGH RISK: Mechanical prosthetic valves 2.5-3.5 Lymphocytes (Bld) [#/Vol] 1.5 103/mcL Normal 0.9 - 4.3 10^3/mcL AO Workflow SS Lymphocytes/100 WBC (Bld) 17.0 % Low 20.0 - 40.0 % AO Workflow SS MCH (RBC) [Entitic mass] 29.4 pg Normal 27.0 - 33.0 pg AO Workflow SS MCHC 33.7 G/dL Normal 32.0 - 36.0 G/dL AO Workflow SS MCV (RBC) [Entitic vol] 87.1 fL Normal 81.0 - 100.0 fL AO Workflow SS Monocyte distribution width Auto (Bld) [Entitic vol] Not Performed 1 *NA* (04/21/25 9:11 PM) Invalid Interpretation Code 0.00 - 20.00 AO Hematology S Comment on above: Result Comment: MDW testing performed only on adult ER patients between the ages of 18-89 years. Monocytes (Bld) [#/Vol] 1.0 103/mcL Normal 0.1 - 1.4 10^3/mcL AO Workflow SS Monocytes/100 WBC (Bld) 11.6 % Normal 2.0 - 13.0 % AO Workflow SS Neutrophils (Bld) [#/Vol] 5.7 103/mcL Normal 2.3 - 8.1 10^3/mcL AO Workflow SS Neutrophils/100 WBC (Bld) 65.6 % Normal 50.0 - 75.0 % AO Workflow SS Platelet mean volume (Bld) [Entitic vol] 7.6 fL Normal 6.4 - 10.5 fL AO Workflow SS Platelets (Bld) [#/Vol] 223 103/mcL Normal 150 - 450 10^3/mcL AO Workflow SS Potassium [Moles/Vol] 4.5 mmol/L Normal 3.5 - 5.1 mmol/L AO ADM SS PT Coag (PPP) [Time] 11.0 s Normal 9.0 - 1 4.4 seconds AO [facility] SS RBC (Bld) [#/Vol] 4.37 106/mcL Low 4.50 - 6.0 0 10^6/mcL AO Workflow SS Sodium [Moles/Vol] 141 mmol/L Normal 136 - 145 mmol/L AO ADM SS Troponin I.cardiac DL <= 0.01 ng/mL [Mass/Vol] ng/L Normal 0 - 76 ng/L AO ADM SS Comment on above: Interpretive Data: H igh Sensitive Troponin I Reference Ranges: Female: 0-51 ng/L Male: 0-76 ng/L Testing performed on [employer] using a homogeneous sandwich chemiluminescent immunoassay based on [employer] technology. Urea nitrogen [Mass/Vol] 39 mg/dL High 7 - 18 mg/dL AO ADM SS Urea nitrogen/Creatinine [Mass ratio] 27 ratio Normal 7 - 27 ratio AO ADM SS WBC (Bld) [#/Vol] 8.8 103/mcL Normal 4.5 - 10.8 10^3/mcL AO Workflow SS LABORATORYOrdered By: Ansley Altman on 04-21-2025 Platelets LM Ql (Bld) Normal (04/21/25 9:11 PM) Normal AO Hematology S Laboratory - Chemistry and C hemistry - challengeon 04-21-2025 Anion gap (Bld) [Moles/Vol] 11 mmol/L 3.00 - 13.00 [email or web address] Calcium.ionized (Bld) [Moles/Vol] 4.9 mg/dl 4.30 - 5.20 mg/dl [email or web address] Chloride [Moles/Vol] 105 mmol/L 98 - 11 4 mmol/L [email or web address] CO2 [Moles/Vol] 23 mmol/L 21 - 29 mmol/L [email or web address] Creatinine [Mass/Vol] 1.5 mg/dL High 0.6 - 1.3 mg/dL [email or web address] GFR/1.73 sq M.predicted CKD-EPI (S/P/Bld) [Vol rate/Area] 47.4 [email or web address] Glucose [Mass/Vol] 189 mg/dL High 70 - 100 mg/dL [email or web address] Potassium [Moles/Vol] 4.6 mmol/L 3.4 - 5.1 mmol/L [email or web address] Sodium [Moles/Vol] 139 mmol/L 133 - 145 mmol/L [facility] Urea (Bld) [Mass/Vol] 34 mg/dL High 4 - 22 mg/dL S [facility] No Panel Informationon 04-21 Interpretation and review of laboratory results Abnormal [facility] Nursing Noteon 04-21-2025 Nursing Note Normal [facility] PROon 04-21-2025 PT Coag (PPP) [Time] 11.0 s Normal 9.0-14.4 [facility] Comment on above: Performed By: #### A PTT, TROPHS, ADIFF, PRO, ANEU, MORPH, GFR, MDW, BMP, CBC #### [address] [place], [place] [address] PT International Ratio 1.0 Normal [facility] Comment on above: Result Comment: The [place] [employer] (CHEST, 1992, 102:312S-25S) recommended therapeutic range for oral anticoagulant therapy is: LOW RISK: Prophylaxis of venous thrombosis INR: 2.0-3.0 Treatment of pulmonary embolism 2.0-3.0 Prevention of systemic embolism 2.0-3.0 HIGH RISK: Mechanical prosthetic valves 2.5-3.5 Performed By: #### A PTT, TROPHS, ADIFF, PRO, ANEU, MORPH, GFR, MDW, BMP, CBC #### [address] [place], [place] [address] PROTHROMBIN TIMEon INR Coag (PPP) [Relative time] 1.0 {INR} Normal 0.9-1.1 [facility] Comment on above: Result Comment: Brandon mmended Anticoagulant Therapy: SEE BELOW----- INR of 2.0 - 3.0 : - Prophylaxis of Venous Thrombosis (high-risk surgery) - Treatment of Venous Thrombosis - Treatment of Pulmonary Embolism (Includes tissue heart valves, Acute Myocardial Infarction to prevent systemic embolism, Valvular Heart Disease, and Atrial Fibrillation)----- INR of 2.5 - 3.5 : - Mechanical Prosthetic Valves (high risk) - If oral anticoagulant therapy is used to prevent Myocardial Infarction Performed By: #### L [id number] ####Satellite Specialist: GRACIE SUTTON ([phone])[facility] ([facility] PT Coag (PPP) [Time] 10.3 s Normal 9.0-12.0 [facility] Comment on above: Performed By: #### L [id number] ####Satellite Specialist: GRACIE SUTTON ([phone])[facility] ([facility])[address] RFA Cerebral arteries Bilate ral Views W contrast IAon 04-21-2025 Radiology Study observation (narrative) [facility] TROPHSon 04-21-2025 High Sensitivity Troponin I <4 Normal 0-76 [facility] Comment on above: Result Comment: High Sensitive Troponin I Reference Ranges: Female: 0-51 ng/L Male: 0-76 ng/L Testing performed on [employer] using a homogeneous sandwich chemiluminescent immunoassay based on [employer] technology. Performed By: #### A PTT, TROPHS, ADIFF, PRO, ANEU, MORPH, GFR, MDW, BMP, CBC #### [address] [place], [place] [address] XR CHEST 1 VIEWon 04-21-2025 XR CHEST 1 VIEW ORIGINAL EXAMINATION: ONE XRAY VIEW OF THE CHEST04/21/2025 10:22 pm CHEST ONE VIEW AP/PA COMPARISON: None HISTORY: ORDERING SYSTEM PROVIDED HISTORY: Reason for Exam: chest pain/[id number]^ FINDINGS: Lines/Tubes: None Lungs: No evidence of a focal consolidation, pneumothorax, or pleural effusion. Heart/Mediastinum: Status post median sternotomy. Stable cardiomediastinal silhouette and normal size. Bones/Soft Tissues: No acute fractures are identified. IMPRESSION: No evidence of an acute cardiopulmonary process. Interpreted by: Jono Murphy Preliminary Report By: Jono Murphy Electronically signed By Jono Murphy Dictated Date: 04/21/2025 11:21:51 PM Prelim Date: 04/21/2025 11:22:43 PM Sign Date: 04/21/2025 11:22:43 PM Ordering Provider: BERNICE SOTOMAYOR Interpreted by: Jono Murphy Preliminary Report By: Jono Murphy Electronically signed By Jono Murphy Dictated Date: 04/21/2025 11:21:51 PM Prelim Date: 04/21/2025 11:22:43 PM Sign Date: 04/21/2025 11:22:43 PM Ordering Provider: BERNICE SOTOMAYOR Normal [facility] PSA,Total- Diagnosticon 06-0 PSA, DIAGNOSTIC < 0.02 Normal 0.00-4.00 [facility] Comment on above: Result Comment: This test was performed using the [employer] tPSA method. Measured values of a patient??sample can vary depending on the testing procedure used. PSA values determined on patient samples by different testing procedures cannot be used interchangeably. If there is a change in PSA assays while monitoring therapy, sequential testing should be performed to confirm baseline values. Performed By: #### L [id number] #### [facility] [address] [place], [address] BD BONE [facility] BD BONE DENSITY DEXA AXIAL [place] ORIGINAL EXAMINATION: BONE DENSITOMETRY 11:06 am TECHNIQUE: Dual energy bone densitometry lumbar spine and left hip. COMPARISON: 03/27/2023 HISTORY: Reason for Exam: screening Osteoporosis screening. FINDINGS: T Score Left Femoral Neck: -0.3 Left Femoral Neck: 0.887 (g/cm2) T Score Left Hip: -0.6 Left Hip: 0.938 (g/cm2) T Score Lumbar Spine: -0.8 Lumbar Spine: 1.000 (g/cm2) BMD Change from previous Hip: +1.4% BMD Change from previous Lumbar Spine: +3.4%, significant FRAX score: Not calculated. The BHOF f/k/a NOF recommends that FDA-approved medical therapies be considered in post-menopausal women and men age >/= 50 years with a: * Hip or vertebral fracture, or * T-score of /= 20% for major osteoporotic fractures or * >/= 3% for hip fractures All treatment decisions require clinical judgement and consideration of individual patient factors, including patient preferences, comorbidities, previous drug use, risk factors not captured in the FRAX registered model (e.g., frailty, falls, vitamin D deficiency, increased bone turnover, interval significant decline in bone density) and possible under- or over-estimation of fracture risk by FRAX. IMPRESSION: Normal bone mineral density. Interpreted by: Joshua Mackey MD Preliminary Report By: Joshua Mackey MD Electronically signed By Joshua Mackey MD Dictated Date: 03/14/2025 11:43:54 AM Prelim Date: 03/14/2025 11:45:12 AM Sign Date: 03/14/2025 11:45:12 AM Ordering Provider: BRE Mondragon [facility] .Auto Diffon 02-28-2025 Basophil, Absolute 0.1 10 3/mcL Normal 0.0-0.3 [facility] Comment on above: Performed By: #### A PTT, TROPHS, ADIFF, PRO, ANEU, MORPH, GFR, MDW, BMP, CBC #### [address] [address] Basophils/100 WBC (Bld) 1.1 % Normal 0.0-2.5 [facility] Comment on above: Performed By: #### A PTT, TROPHS, ADIFF, PRO, ANEU, MORPH, GFR, MDW, BMP, CBC #### [address] [address] Eosinophil, Absolute 0.8 10 3/mcL High 0.0-0.7 [facility] Comment on above: Performed By: #### A PTT, TROPHS, ADIFF, PRO, ANEU, MORPH, GFR, MDW, BMP, CBC #### [address] [address] Eosinophils/100 WBC (Bld) 7.8 % High 0.0-6.0 [facility] Comment on above: Performed By: #### A PTT, TROPHS, ADIFF, PRO, ANEU, MORPH, GFR, MDW, BMP, CBC #### [address] [address] Lymphocyte, Absolute 1.5 10 3/mcL Normal 0.9-4.3 [facility] Comment on above: Performed By: #### A PTT, TROPHS, ADIFF, PRO, ANEU, MORPH, GFR, MDW, BMP, CBC #### [address] [address] Lymphocytes/100 WBC (Bld) 14.5 % Low 20.0-40.0 [facility] Comment on above: Performed By: #### A PTT, TROPHS, ADIFF, PRO, ANEU, MORPH, GFR, MDW, BMP, CBC #### [address] [address] Monocyte, Absolute 1.1 10 3/mcL Normal 0.1-1.4 [facility] Comment on above: Performed By: #### A PTT, TROPHS, ADIFF, PRO, ANEU, MORPH, GFR, MDW, BMP, CBC #### [address] [address] Monocytes/100 WBC (Bld) 10.9 % Normal 2.0-13.0 [facility] Comment on above: Performed By: #### A PTT, TROPHS, ADIFF, PRO, ANEU, MORPH, GFR, MDW, BMP, CBC #### [address] [address] Neutrophils/100 WBC (Bld) 65.7 % Normal 50.0-75.0 [facility] Comment on above: Performed By: #### A PTT, TROPHS, ADIFF, PRO, ANEU, MORPH, GFR, MDW, BMP, CBC #### [address] [address] .GFRon 02-28-2025 Estimated Glomerular Filtration Rate 54 ml/min/1.73sqm Normal [facility] Comment on above: Result Comment: Stages of Chronic Kidney Disease (CKD) Stage Description eGFR(ml/min/1.73 sq.m.) CKD 1 Normal kidney function or >=90 normal kindney function with possible kidney damage (ex. Proteinuria) CKD 2 Kidney damage with mild loss 60-89 of kidney function CKD 3a Mild to moderate loss of kidney 45-59 function CKD 3b Moderate to severe loss of 30-44 of kindey function CKD 4 Severe loss of kidney function 15-29 CKD 5 Kidney failure <15 Note: (go live 2024) the eGFR calculation was updated to the 2020 CKD-EPI creatinine equation without a race factor to calculate the eGFR results. Performed By: #### A PTT, TROPHS, ADIFF, PRO, ANEU, MORPH, GFR, MDW, BMP, CBC #### [address] [address] .NEUABSon 02-28-2025 Neutrophil, Absolute 6.6 10 3/mcL Normal 2.3-8.1 [facility] Comment on above: Performed By: #### A PTT, TROPHS, ADIFF, PRO, ANEU, MORPH, GFR, MDW, BMP, CBC #### [place] [id number] A1Con 02-28-2025 Glucose [Mass/Vol] 160 mg/dL Normal [facility] Comment on above: Result Comment: Alysha mated Average Glucose calculated by equation ((28.7xA1C)-46.7) Estimated average glucose (eAG) is a calculated value from Hemoglobin A1C and is employment representative of the average blood glucose level in the last 2-3 month period. Normal range: less than 114 mg/dL Performed By: #### A PTT, TROPHS, ADIFF, PRO, ANEU, MORPH, GFR, MDW, BMP, CBC #### [place] [address] HbA1c (Bld) [Mass fraction] 7.2 % High 4.3-6.4 [facility] Comment on above: Performed By: #### A PTT, TROPHS, ADIFF, PRO, ANEU, MORPH, GFR, MDW, BMP, CBC #### [place] [id number] CBCon 02-28-2025 Erythrocyte distribution width (RBC) [Ratio] 15.0 % Normal 11.5-15.5 [facility] Comment on above: Performed By: #### A PTT, TROPHS, ADIFF, PRO, ANEU, MORPH, GFR, MDW, BMP, CBC #### [place] [address] Hematocrit (Bld) [Volume fraction] 39.7 % Low 40.0-52.0 [facility] Comment on above: Performed By: #### A PTT, TROPHS, ADIFF, PRO, ANEU, MORPH, GFR, MDW, BMP, CBC #### [address] [address] Hgb 13.2 G/dL Normal 13.0-17.5 [facility] Comment on above: Performed By: #### A PTT, TROPHS, ADIFF, PRO, ANEU, MORPH, GFR, MDW, BMP, CBC #### [address] [address] MCH (RBC) [Entitic mass] 29.4 pg Normal 27.0-33.0 [facility] Comment on above: Performed By: #### A PTT, TROPHS, ADIFF, PRO, ANEU, MORPH, GFR, MDW, BMP, CBC #### [address] [address] MCHC 33.3 G/dL Normal 32.0-36.0 [facility] Comment on above: Performed By: #### A PTT, TROPHS, ADIFF, PRO, ANEU, MORPH, GFR, MDW, BMP, CBC #### [address] [address] MCV (RBC) [Entitic vol] 88.2 fL Normal 81.0-100.0 [facility] Comment on above: Performed By: #### A PTT, TROPHS, ADIFF, PRO, ANEU, MORPH, GFR, MDW, BMP, CBC #### [address] [address] Platelet 227 10 3/mcL Normal 150-450 [facility] Comment on above: Performed By: #### A PTT, TROPHS, ADIFF, PRO, ANEU, MORPH, GFR, MDW, BMP, CBC #### [address] [address] Platelet mean volume (Bld) [Entitic vol] 7.8 fL Normal 6.4-10.5 [facility] Comment on above: Performed By: #### A PTT, TROPHS, ADIFF, PRO, ANEU, MORPH, GFR, MDW, BMP, CBC #### [address] [address] RBC 4.51 10 6/mcL Normal 4.50-6.00 [facility] Comment on above: Performed By: #### A PTT, TROPHS, ADIFF, PRO, ANEU, MORPH, GFR, MDW, BMP, CBC #### [address] [address] WBC 10.1 10 3/mcL Normal 4.5-10.8 [facility] Comment on above: Performed By: #### A PTT, TROPHS, ADIFF, PRO, ANEU, MORPH, GFR, MDW, BMP, CBC #### [address] [address] CMPon 02-28-2025 Albumin Level 3.8 G/dL Normal 3.4-4.8 [facility] Comment on above: Performed By: #### A PTT, TROPHS, ADIFF, PRO, ANEU, MORPH, GFR, MDW, BMP, CBC #### [address] [address] Albumin/Globulin [Mass ratio] 1.1 {ratio} Normal 1.1-2.5 [facility] Comment on above: Performed By: #### A PTT, TROPHS, ADIFF, PRO, ANEU, MORPH, GFR, MDW, BMP, CBC #### [address] [address] ALP [Catalytic activity/Vol] 76 U/L Normal 40-135 [facility] Comment on above: Performed By: #### A PTT, TROPHS, ADIFF, PRO, ANEU, MORPH, GFR, MDW, BMP, CBC #### [address] [address] ALT [Catalytic activity/Vol] 24 U/L Normal 16-63 [facility] Comment on above: Performed By: #### A PTT, TROPHS, ADIFF, PRO, ANEU, MORPH, GFR, MDW, BMP, CBC #### [address] [address] AST [Catalytic activity/Vol] 21 U/L Normal 10-40 [facility] Comment on above: Performed By: #### A PTT, TROPHS, ADIFF, PRO, ANEU, MORPH, GFR, MDW, BMP, CBC #### [address] [address] Bili Total 0.6 mg/dL Normal 0.2-1.0 [facility] Comment on above: Result Comment: Use of this assay is not recommended for patients undergoing treatment with eltrombopag due to the potential for falsely elevated results. Performed By: #### A PTT, TROPHS, ADIFF, PRO, ANEU, MORPH, GFR, MDW, BMP, CBC #### [address] [address] BUN/Creatinine Ratio 23 ratio Normal 7-27 [facility] Comment on above: Performed By: #### A PTT, TROPHS, ADIFF, PRO, ANEU, MORPH, GFR, MDW, BMP, CBC #### [address] [address] Calcium [Mass/Vol] 9.6 mg/dL Normal 8.4-10.2 [facility] Comment on above: Performed By: #### A PTT, TROPHS, ADIFF, PRO, ANEU, MORPH, GFR, MDW, BMP, CBC #### [address] [address] Chloride [Moles/Vol] 105 mmol/L Normal 98-107 [facility] Comment on above: Performed By: #### A PTT, TROPHS, ADIFF, PRO, ANEU, MORPH, GFR, MDW, BMP, CBC #### [address] [address] CO2 [Moles/Vol] 31 mmol/L Normal 23-31 [facility] Comment on above: Performed By: #### A PTT, TROPHS, ADIFF, PRO, ANEU, MORPH, GFR, MDW, BMP, CBC #### [address] [address] Creatinine [Mass/Vol] 1.35 mg/dL High 0.67-1.17 [facility] Comment on above: Performed By: #### A PTT, TROPHS, ADIFF, PRO, ANEU, MORPH, GFR, MDW, BMP, CBC #### [address] [address] Electrolyte Balance 6.0 mEq/L Normal 4.0-15.0 [facility] Comment on above: Performed By: #### A PTT, TROPHS, ADIFF, PRO, ANEU, MORPH, GFR, MDW, BMP, CBC #### [address] [address] Globulin 3.4 G/dL Normal 2.7-4.4 [facility] Comment on above: Performed By: #### A PTT, TROPHS, ADIFF, PRO, ANEU, MORPH, GFR, MDW, BMP, CBC #### [address] [address] Glucose [Mass/Vol] 137 mg/dL High 83-110 [facility] Comment on above: Performed By: #### A PTT, TROPHS, ADIFF, PRO, ANEU, MORPH, GFR, MDW, BMP, CBC #### [address] [address] Potassium [Moles/Vol] 4.8 mmol/L Normal 3.5-5.1 [facility] Comment on above: Performed By: #### A PTT, TROPHS, ADIFF, PRO, ANEU, MORPH, GFR, MDW, BMP, CBC #### [address] [address] Sodium [Moles/Vol] 142 mmol/L Normal 136-145 [facility] Comment on above: Performed By: #### A PTT, TROPHS, ADIFF, PRO, ANEU, MORPH, GFR, MDW, BMP, CBC #### [address] [address] Total Protein 7.2 G/dL Normal 6.4-8.2 [facility] Comment on above: Performed By: #### A PTT, TROPHS, ADIFF, PRO, ANEU, MORPH, GFR, MDW, BMP, CBC #### [address] [address] Urea nitrogen [Mass/Vol] 31 mg/dL High 7-18 [facility] Comment on above: Performed By: #### A PTT, TROPHS, ADIFF, PRO, ANEU, MORPH, GFR, MDW, BMP, CBC #### [place] [id number] [place], [place] [address] FT3on 02-28-2025 Free T3 [Mass/Vol] 2.73 pg/mL Normal 2.30-4.00 [facility] Comment on above: Performed By: #### A PTT, TROPHS, ADIFF, PRO, ANEU, MORPH, GFR, MDW, BMP, CBC #### [place] [address] [place], [place] [address] FT4on 02-28-2025 Free T4 [Mass/Vol] 1.26 ng/dL Normal 0.76-1.46 [facility] Comment on above: Performed By: #### A PTT, TROPHS, ADIFF, PRO, ANEU, MORPH, GFR, MDW, BMP, CBC #### [address] [address] LABORATORYOrdered By: SYSTEM SYSTEM on 02-28-2025 25-hydroxyvitamin D3 [Mass/Vol] 90.1 ng/mL Invalid Interpretation Code AO ADM SS Comment on above: Interpretive Data: I nterpretive Values Based on Total 25(OH) Vitamin D: Deficient <20 ng/mL Insufficient 20 - <30 ng/mL Sufficient 30-100 ng/mL Albumin BCP dye [Mass/Vol] 3.8 G/dL Normal 3.4 - 4.8 G/dL AO ADM SS Albumin/Globulin [Mass ratio] 1.1 {ratio} Normal 1.1 - 2.5 ratio AO ADM SS ALP [Catalytic activity/Vol] 76 U/L Normal 40 - 135 U/L AO ADM SS ALT With P-5'-P [Catalytic activity/Vol] 24 U/L Normal 16 - 63 U/L AO ADM SS AST With P-5'-P [Catalytic activity/Vol] 21 U/L Normal 10 - 40 U/L AO ADM SS Basophils (Bld) [#/Vol] 0.1 103/mcL Normal 0.0 - 0.3 10^3/mcL AO Workflow SS Basophils/100 WBC (Bld) 1.1 % Normal 0.0 - 2.5 % AO Workflow SS Bilirubin [Mass/Vol] 0.6 mg/dL Normal 0.2 - 1 .0 mg/dL AO ADM SS Comment on above: Interpretive Data: U se of this assay is not recommended for patients undergoing treatment with eltrombopag due to the potential for falsely elevated results. Calcium [Mass/Vol] 9.6 mg/dL Normal 8.4 - 10. 2 mg/dL AO ADM SS Chloride [Moles/Vol] 105 mmol/L Normal 98 - 10 7 mmol/L AO ADM SS CO2 [Moles/Vol] 31 mmol/L Normal 23 - 31 mmol/L AO ADM SS Creatinine [Mass/Vol] 1.35 mg/dL High 0.67 - 1.17 mg/dL AO ADM SS Electrolyte Balance 6.0 mEq/L Normal 4.0 - 15 .0 mEq/L AO ADM SS Eosinophil, Absolute 0.8 103/mcL High 0.0 - 0 .7 10^3/mcL AO Workflow SS Eosinophils/100 WBC (Bld) 7.8 % High 0.0 - 6.0 % AO Workflow SS Erythrocyte distribution width (RBC) [Ratio] 15.0 % Normal 11.5 - 15.5 % AO Workflow SS Estimated Glomerular Filtration Rate 54 ml/min/1.73sqm Invalid Interpretation Code AO Chemistry S Comment on above: Interpretive Data: Stages of Chronic Kidney Disease (CKD) Stage Description eGFR(ml/min/1.73 sq.m.) CKD 1 Normal kidney function or >=90 normal kindney function with possible kidney damage (ex. Proteinuria) CKD 2 Kidney damage with mild loss 60-89 of kidney function CKD 3a Mild to moderate loss of kidney 45-59 function CKD 3b Moderate to severe loss of 30-44 of kindey function CKD 4 Severe loss of kidney function 15-29 CKD 5 Kidney failure <15 Note: (go live 2024) the eGFR calculation was updated to the 2020 CKD-EPI creatinine equation without a race factor to calculate the eGFR results. Free T3 [Mass/Vol] 2.73 pg/mL Normal 2.30 - 4. 00 pg/mL AO ADM SS Free T4 [Mass/Vol] 1.26 ng/dL Normal 0.76 - 1. 46 ng/dL AO ADM SS Globulin 3.4 G/dL Normal 2.7 - 4.4 G/dL AO ADM SS Glucose [Mass/Vol] 137 mg/dL High 83 - 110 mg/dL AO ADM SS Glucose [Mass/Vol] 160 mg/dL Invalid Interpretation Code AO Chemistry S Comment on above: Interpretive Data: E stimated average glucose (eAG) is a calculated value from Hemoglobin A1C and is employment representative of the average blood glucose level in the last 2-3 month period. Normal range: less than 114 mg/dL HbA1c (Bld) [Mass fraction] 7.2 % High 4.3 - 6.4 % AO ADM SS Hematocrit (Bld) [Volume fraction] 39.7 % Low 40.0 - 52.0 % AO Workflow SS Hemoglobin (Bld) [Mass/Vol] 13.2 G/dL Normal 13.0 - 17.5 G/dL AO Workflow SS Lymphocytes (Bld) [#/Vol] 1.5 103/mcL Normal 0.9 - 4.3 10^3/mcL AO Workflow SS Lymphocytes/100 WBC (Bld) 14.5 % Low 20.0 - 40.0 % AO Workflow SS MCH (RBC) [Entitic mass] 29.4 pg Normal 27.0 - 33.0 pg AO Workflow SS MCHC 33.3 G/dL Normal 32.0 - 36.0 G/dL AO Workflow SS MCV (RBC) [Entitic vol] 88.2 fL Normal 81.0 - 100.0 fL AO Workflow SS Monocytes (Bld) [#/Vol] 1.1 103/mcL Normal 0.1 - 1.4 10^3/mcL AO Workflow SS Monocytes/100 WBC (Bld) 10.9 % Normal 2.0 - 13.0 % AO Workflow SS Neutrophils (Bld) [#/Vol] 6.6 103/mcL Normal 2.3 - 8.1 10^3/mcL AO Workflow SS Neutrophils/100 WBC (Bld) 65.7 % Normal 50.0 - 75.0 % AO Workflow SS Platelet mean volume (Bld) [Entitic vol] 7.8 fL Normal 6.4 - 10.5 fL AO Workflow SS Platelets (Bld) [#/Vol] 227 103/mcL Normal 150 - 450 10^3/mcL AO Workflow SS Potassium [Moles/Vol] 4.8 mmol/L Normal 3.5 - 5.1 mmol/L AO ADM SS Protein [Mass/Vol] 7.2 G/dL Normal 6.4 - 8.2 G/dL AO ADM SS RBC (Bld) [#/Vol] 4.51 106/mcL Normal 4.50 - 6.0 0 10^6/mcL AO Workflow SS Sodium [Moles/Vol] 142 mmol/L Normal 136 - 145 mmol/L AO ADM SS TSH Qn 0.66 m[IU]/L Normal 0.36 - 3.74 mcIU/mL AO ADM SS Urea nitrogen [Mass/Vol] 31 mg/dL High 7 - 18 mg/dL AO ADM SS Urea nitrogen/Creatinine [Mass ratio] 23 ratio Normal 7 - 27 ratio AO ADM SS WBC (Bld) [#/Vol] 10.1 103/mcL Normal 4.5 - 10.8 10^3/mcL AO Workflow SS LABORATORYOrdered By: Sathya Mackey on 02-28-2025 Cholesterol [Mass/Vol] 61 mg/dL Normal 0 - 2 00 mg/dL AO ADM SS Comment on above: Interpretive Data: C holesterol Reference Interval: Less than 200 Desirable 200-239 Borderline high risk 240 and above High risk Cholesterol in HDL [Mass/Vol] 47 mg/dL Normal 40 - 60 mg/dL AO ADM SS Cholesterol in LDL [Mass/Vol] 0 mg/dL Normal 0 - 130 mg/dL AO ADM SS Triglyceride [Mass/Vol] 70 mg/dL Normal 0 - 150 mg/dL AO ADM SS Comment on above: Interpretive Data: T riglyceride Reference Interval: Less than 150 Normal 150-199 Borderline high risk 200-499 High risk 500 or higher Very high risk LIPIDon 02-28-2025 Cholesterol [Mass/Vol] 61 mg/dL Normal 0-200 [facility] Comment on above: Result Comment: Chol esterol Reference Interval: Less than 200 Desirable 200-239 Borderline high risk 240 and above High risk Performed By: #### A PTT, TROPHS, ADIFF, PRO, ANEU, MORPH, GFR, MDW, BMP, CBC #### [facility] [address] [place], [place] [address] Cholesterol in HDL [Mass/Vol] 47 mg/dL Normal 40-60 [facility] Comment on above: Performed By: #### A PTT, TROPHS, ADIFF, PRO, ANEU, MORPH, GFR, MDW, BMP, CBC #### [address] [address] Cholesterol in LDL [Mass/Vol] 0 mg/dL Normal 0-130 [facility] Comment on above: Performed By: #### A PTT, TROPHS, ADIFF, PRO, ANEU, MORPH, GFR, MDW, BMP, CBC #### [place] [address] Triglyceride [Mass/Vol] 70 mg/dL Normal 0-150 [facility] Comment on above: Result Comment: Trig lyceride Reference Interval: Less than 150 Normal 150-199 Borderline high risk 200-499 High risk 500 or higher Very high risk Performed By: #### A PTT, TROPHS, ADIFF, PRO, ANEU, MORPH, GFR, MDW, BMP, CBC #### [place] [address] TSHon 02-28-2025 TSH Qn 0.66 m[IU]/L Normal 0.36-3.74 [facility] Comment on above: Performed By: #### A PTT, TROPHS, ADIFF, PRO, ANEU, MORPH, GFR, MDW, BMP, CBC #### [address] [address] VIDHon 02-28-2025 Vit. D 25-Hydroxy 90.1 ng/mL Normal [facility] Comment on above: Result Comment: Inte rpretive Values Based on Total 25(OH) Vitamin D: Deficient <20 ng/mL Insufficient 20 - <30 ng/mL Sufficient 30-100 ng/mL Performed By: #### A PTT, TROPHS, ADIFF, PRO, ANEU, MORPH, GFR, MDW, BMP, CBC #### [place] [address] LIPIDon 10-11-2024 Cholesterol [Mass/Vol] 64 mg/dL Normal 0-200 [facility] Comment on above: Result Comment: Chol esterol Reference Interval: Less than 200 Desirable 200-239 Borderline high risk 240 and above High risk Performed By: #### A PTT, TROPHS, ADIFF, PRO, ANEU, MORPH, GFR, MDW, BMP, CBC #### [address] [address] Cholesterol in HDL [Mass/Vol] 49 mg/dL Normal 40-60 [facility] Comment on above: Performed By: #### A PTT, TROPHS, ADIFF, PRO, ANEU, MORPH, GFR, MDW, BMP, CBC #### [place] [address] Cholesterol in LDL [Mass/Vol] 2 mg/dL Normal 0-130 [facility] Comment on above: Performed By: #### A PTT, TROPHS, ADIFF, PRO, ANEU, MORPH, GFR, MDW, BMP, CBC #### [address] [address] Triglyceride [Mass/Vol] 64 mg/dL Normal 0-150 [facility] Comment on above: Result Comment: Trig lyceride Reference Interval: Less than 150 Normal 150-199 Borderline high risk 200-499 High risk 500 or higher Very high risk Performed By: #### A PTT, TROPHS, ADIFF, PRO, ANEU, MORPH, GFR, MDW, BMP, CBC #### [address] [address] .Auto Diffon 10-07-2024 Basophil, Absolute 0.1 10 3/mcL Normal 0.0-0.2 [facility] Comment on above: Performed By: #### A PTT, TROPHS, ADIFF, PRO, ANEU, MORPH, GFR, MDW, BMP, CBC #### [address] [address] Basophils/100 WBC (Bld) 0.9 % Normal 0.0-2.5 [facility] Comment on above: Performed By: #### A PTT, TROPHS, ADIFF, PRO, ANEU, MORPH, GFR, MDW, BMP, CBC #### [address] [address] Eosinophil, Absolute 0.5 10 3/mcL Normal 0.0-0.7 [facility] Comment on above: Performed By: #### A PTT, TROPHS, ADIFF, PRO, ANEU, MORPH, GFR, MDW, BMP, CBC #### [address] [address] Eosinophils/100 WBC (Bld) 5.4 % Normal 0.0-7.0 [facility] Comment on above: Performed By: #### A PTT, TROPHS, ADIFF, PRO, ANEU, MORPH, GFR, MDW, BMP, CBC #### [address] [address] Lymphocyte, Absolute 1.7 10 3/mcL Normal 0.9-4.3 [facility] Comment on above: Performed By: #### A PTT, TROPHS, ADIFF, PRO, ANEU, MORPH, GFR, MDW, BMP, CBC #### [address] [address] Lymphocytes/100 WBC (Bld) 17.2 % Low 20.0-40.0 [facility] Comment on above: Performed By: #### A PTT, TROPHS, ADIFF, PRO, ANEU, MORPH, GFR, MDW, BMP, CBC #### [address] [address] Monocyte, Absolute 1.2 10 3/mcL Normal 0.1-1.4 [facility] Comment on above: Performed By: #### A PTT, TROPHS, ADIFF, PRO, ANEU, MORPH, GFR, MDW, BMP, CBC #### [address] [address] Monocytes/100 WBC (Bld) 12.2 % Normal 2.0-13.0 [facility] Comment on above: Performed By: #### A PTT, TROPHS, ADIFF, PRO, ANEU, MORPH, GFR, MDW, BMP, CBC #### [address] [address] Neutrophils/100 WBC (Bld) 64.3 % Normal 50.0-75.0 [facility] Comment on above: Performed By: #### A PTT, TROPHS, ADIFF, PRO, ANEU, MORPH, GFR, MDW, BMP, CBC #### [address] [address] .GFRon 10-07-2024 GFR Non- 52 ml/min/1.73sqm [facility] Comment on above: Result Comment: GFR Population mean for , Non- Americans Ages 20-29 = 116 mL/min/1.73 sq.m. Ages 30-39 = 107 mL/min/1.73 sq.m. Ages 40-49 = 99 mL/min/1.73 sq.m. Ages 50-59 = 93 mL/min/1.73 sq.m. Ages 60-69 = 85 mL/min/1.73 sq.m. Ages 70+ = 75 mL/min/1.73 sq.m. Chronic Kidney Disease: Less than 60 mL/min/1.73 square meters End Stage Renal Disease: Less than 15 mL/min/1.73 square meters Performed By: #### A PTT, TROPHS, ADIFF, PRO, ANEU, MORPH, GFR, MDW, BMP, CBC #### [address] [address] GFR 64 ml/min/1.73sqm [facility] Comment on above: Result Comment: GFR Population mean for , Non- Americans Ages 20-29 = 116 mL/min/1.73 sq.m. Ages 30-39 = 107 mL/min/1.73 sq.m. Ages 40-49 = 99 mL/min/1.73 sq.m. Ages 50-59 = 93 mL/min/1.73 sq.m. Ages 60-69 = 85 mL/min/1.73 sq.m. Ages 70+ = 75 mL/min/1.73 sq.m. Chronic Kidney Disease: Less than 60 mL/min/1.73 square meters End Stage Renal Disease: Less than 15 mL/min/1.73 square meters Performed By: #### A PTT, TROPHS, ADIFF, PRO, ANEU, MORPH, GFR, MDW, BMP, CBC #### [address] [address] .NEUABSon 10-07-2024 Neutrophil, Absolute 6.4 10 3/mcL Normal 2.3-8.1 [facility] Comment on above: Performed By: #### A PTT, TROPHS, ADIFF, PRO, ANEU, MORPH, GFR, MDW, BMP, CBC #### [address] [address] A1Con 10-07-2024 Glucose [Mass/Vol] 157 mg/dL Normal [facility] Comment on above: Result Comment: Alysha mated Average Glucose calculated by equation ((28.7xA1C)-46.7) Estimated average glucose (eAG) is a calculated value from Hemoglobin A1C and is employment representative of the average blood glucose level in the last 2-3 month period. Normal range: less than 114 mg/dL Performed By: #### A PTT, TROPHS, ADIFF, PRO, ANEU, MORPH, GFR, MDW, BMP, CBC #### [place] [address] HbA1c (Bld) [Mass fraction] 7.1 % High 4.3-6.4 [facility] Comment on above: Performed By: #### A PTT, TROPHS, ADIFF, PRO, ANEU, MORPH, GFR, MDW, BMP, CBC #### [address] [address] CBCon 10-07-2024 Erythrocyte distribution width (RBC) [Ratio] 15.2 % Normal 11.5-15.5 [facility] Comment on above: Performed By: #### A PTT, TROPHS, ADIFF, PRO, ANEU, MORPH, GFR, MDW, BMP, CBC #### [address] [address] Hematocrit (Bld) [Volume fraction] 40.3 % Normal 40.0-52.0 [facility] Comment on above: Performed By: #### A PTT, TROPHS, ADIFF, PRO, ANEU, MORPH, GFR, MDW, BMP, CBC #### [address] [address] Hgb 13.5 G/dL Normal 13.0-17.5 [facility] Comment on above: Performed By: #### A PTT, TROPHS, ADIFF, PRO, ANEU, MORPH, GFR, MDW, BMP, CBC #### [address] [address] MCH (RBC) [Entitic mass] 30.0 pg Normal 27.0-33.0 [facility] Comment on above: Performed By: #### A PTT, TROPHS, ADIFF, PRO, ANEU, MORPH, GFR, MDW, BMP, CBC #### [address] [address] MCHC 33.5 G/dL Normal 32.0-36.0 [facility] Comment on above: Performed By: #### A PTT, TROPHS, ADIFF, PRO, ANEU, MORPH, GFR, MDW, BMP, CBC #### [address] [address] MCV (RBC) [Entitic vol] 89.6 fL Normal 81.0-100.0 [facility] Comment on above: Performed By: #### A PTT, TROPHS, ADIFF, PRO, ANEU, MORPH, GFR, MDW, BMP, CBC #### [address] [address] Platelet 226 10 3/mcL Normal 150-450 [facility] Comment on above: Performed By: #### A PTT, TROPHS, ADIFF, PRO, ANEU, MORPH, GFR, MDW, BMP, CBC #### [address] [address] Platelet mean volume (Bld) [Entitic vol] 7.7 fL Normal 6.4-10.5 [facility] Comment on above: Performed By: #### A PTT, TROPHS, ADIFF, PRO, ANEU, MORPH, GFR, MDW, BMP, CBC #### [address] [address] RBC 4.50 10 6/mcL Normal 4.50-6.00 [facility] Comment on above: Performed By: #### A PTT, TROPHS, ADIFF, PRO, ANEU, MORPH, GFR, MDW, BMP, CBC #### [address] [address] WBC 10.0 10 3/mcL Normal 4.5-10.8 [facility] Comment on above: Performed By: #### A PTT, TROPHS, ADIFF, PRO, ANEU, MORPH, GFR, MDW, BMP, CBC #### [address] [address] CMPon 10-07-2024 Albumin Level 3.9 G/dL Normal 3.4-4.8 [facility] Comment on above: Performed By: #### A PTT, TROPHS, ADIFF, PRO, ANEU, MORPH, GFR, MDW, BMP, CBC #### [address] [address] Albumin/Globulin [Mass ratio] 1.5 {ratio} Normal 1.1-2.5 [facility] Comment on above: Performed By: #### A PTT, TROPHS, ADIFF, PRO, ANEU, MORPH, GFR, MDW, BMP, CBC #### [address] [address] ALP [Catalytic activity/Vol] 65 U/L Normal 40-135 [facility] Comment on above: Performed By: #### A PTT, TROPHS, ADIFF, PRO, ANEU, MORPH, GFR, MDW, BMP, CBC #### [address] [address] ALT [Catalytic activity/Vol] 26 U/L Normal 16-63 [facility] Comment on above: Performed By: #### A PTT, TROPHS, ADIFF, PRO, ANEU, MORPH, GFR, MDW, BMP, CBC #### [address] [address] AST [Catalytic activity/Vol] 18 U/L Normal 10-40 [facility] Comment on above: Performed By: #### A PTT, TROPHS, ADIFF, PRO, ANEU, MORPH, GFR, MDW, BMP, CBC #### [address] [address] Bili Total 0.7 mg/dL Normal 0.2-1.0 [facility] Comment on above: Result Comment: Use of this assay is not recommended for patients undergoing treatment with eltrombopag due to the potential for falsely elevated results. Performed By: #### A PTT, TROPHS, ADIFF, PRO, ANEU, MORPH, GFR, MDW, BMP, CBC #### [address] [address] BUN/Creatinine Ratio 23 ratio Normal 7-27 [facility] Comment on above: Performed By: #### A PTT, TROPHS, ADIFF, PRO, ANEU, MORPH, GFR, MDW, BMP, CBC #### [address] [address] Calcium [Mass/Vol] 9.9 mg/dL Normal 8.4-10.2 [facility] Comment on above: Performed By: #### A PTT, TROPHS, ADIFF, PRO, ANEU, MORPH, GFR, MDW, BMP, CBC #### [address] [address] Chloride [Moles/Vol] 105 mmol/L Normal 98-107 [facility] Comment on above: Performed By: #### A PTT, TROPHS, ADIFF, PRO, ANEU, MORPH, GFR, MDW, BMP, CBC #### [address] [address] CO2 [Moles/Vol] 28 mmol/L Normal 23-31 [facility] Comment on above: Performed By: #### A PTT, TROPHS, ADIFF, PRO, ANEU, MORPH, GFR, MDW, BMP, CBC #### [address] [address] Creatinine [Mass/Vol] 1.32 mg/dL High 0.70-1.30 [facility] Comment on above: Result Comment: Test ing performed on Siemens Dimension EXL analyzer using a modified kinetic Roxanna technique. Performed By: #### A PTT, TROPHS, ADIFF, PRO, ANEU, MORPH, GFR, MDW, BMP, CBC #### [address] [address] Electrolyte Balance 6.0 mEq/L Normal 4.0-15.0 [facility] Comment on above: Performed By: #### A PTT, TROPHS, ADIFF, PRO, ANEU, MORPH, GFR, MDW, BMP, CBC #### [address] [address] Globulin 2.6 G/dL Normal [facility] Comment on above: Performed By: #### A PTT, TROPHS, ADIFF, PRO, ANEU, MORPH, GFR, MDW, BMP, CBC #### [address] [address] Glucose [Mass/Vol] 148 mg/dL High 83-110 [facility] Comment on above: Performed By: #### A PTT, TROPHS, ADIFF, PRO, ANEU, MORPH, GFR, MDW, BMP, CBC #### [address] [address] Potassium [Moles/Vol] 4.4 mmol/L Normal 3.5-5.1 [facility] Comment on above: Performed By: #### A PTT, TROPHS, ADIFF, PRO, ANEU, MORPH, GFR, MDW, BMP, CBC #### [address] [address] Sodium [Moles/Vol] 139 mmol/L Normal 136-145 [facility] Comment on above: Performed By: #### A PTT, TROPHS, ADIFF, PRO, ANEU, MORPH, GFR, MDW, BMP, CBC #### [address] [address] Total Protein 6.5 G/dL Normal 6.4-8.2 [facility] Comment on above: Performed By: #### A PTT, TROPHS, ADIFF, PRO, ANEU, MORPH, GFR, MDW, BMP, CBC #### [address] [address] Urea nitrogen [Mass/Vol] 30 mg/dL High 7-18 [facility] Comment on above: Performed By: #### A PTT, TROPHS, ADIFF, PRO, ANEU, MORPH, GFR, MDW, BMP, CBC #### [facility] [address] [place], [place] [address] LABORATORYOrdered By: SYSTEM SYSTEM on 10-07-2024 25-hydroxyvitamin D3 [Mass/Vol] 91.9 ng/mL Invalid Interpretation Code AO ADM SS Comment on above: Interpretive Data: I nterpretive Values Based on Total 25(OH) Vitamin D: Deficient <20 ng/mL Insufficient 20 - <30 ng/mL Sufficient 30-100 ng/mL Albumin BCP dye [Mass/Vol] 3.9 G/dL Normal 3.4 - 4.8 G/dL AO ADM SS Albumin/Globulin [Mass ratio] 1.5 {ratio} Normal 1.1 - 2.5 ratio AO ADM SS ALP [Catalytic activity/Vol] 65 U/L Normal 40 - 135 U/L AO ADM SS ALT With P-5'-P [Catalytic activity/Vol] 26 U/L Normal 16 - 63 U/L AO ADM SS AST With P-5'-P [Catalytic activity/Vol] 18 U/L Normal 10 - 40 U/L AO ADM SS Basophils (Bld) [#/Vol] 0.1 103/mcL Normal 0.0 - 0.2 10^3/mcL AO Workflow SS Basophils/100 WBC (Bld) 0.9 % Normal 0.0 - 2.5 % AO Workflow SS Bilirubin [Mass/Vol] 0.7 mg/dL Normal 0.2 - 1 .0 mg/dL AO ADM SS Comment on above: Interpretive Data: U se of this assay is not recommended for patients undergoing treatment with eltrombopag due to the potential for falsely elevated results. Calcium [Mass/Vol] 9.9 mg/dL Normal 8.4 - 10. 2 mg/dL AO ADM SS Chloride [Moles/Vol] 105 mmol/L Normal 98 - 10 7 mmol/L AO ADM SS CO2 [Moles/Vol] 28 mmol/L Normal 23 - 31 mmol/L AO ADM SS Creatinine [Mass/Vol] 1.32 mg/dL High 0.70 - 1.30 mg/dL AO ADM SS Comment on above: Interpretive Data: T esting performed on [employer] Dimension EXL analyzer using a modified kinetic Roxanna technique. Electrolyte Balance 6.0 mEq/L Normal 4.0 - 15 .0 mEq/L AO ADM SS Eosinophil, Absolute 0.5 103/mcL Normal 0.0 - 0 .7 10^3/mcL AO Workflow SS Eosinophils/100 WBC (Bld) 5.4 % Normal 0.0 - 7.0 % AO Workflow SS Erythrocyte distribution width (RBC) [Ratio] 15.2 % Normal 11.5 - 15.5 % AO Workflow SS GFR/1.73 sq M.predicted among blacks MDRD (S/P/Bld) [Vol rate/Area] 64 ml/min/1.73sqm Invalid Interpretation Code AO Chemistry S Comment on above: Interpretive Data: GFR Population mean for , Non- Americans Ages 20-29 = 116 mL/min/1.73 sq.m. Ages 30-39 = 107 mL/min/1.73 sq.m. Ages 40-49 = 99 mL/min/1.73 sq.m. Ages 50-59 = 93 mL/min/1.73 sq.m. Ages 60-69 = 85 mL/min/1.73 sq.m. Ages 70+ = 75 mL/min/1.73 sq.m. Chronic Kidney Disease: Less than 60 mL/min/1.73 square meters End Stage Renal Disease: Less than 15 mL/min/1.73 square meters GFR/1.73 sq M.predicted among non-blacks MDRD (S/P/Bld) [Vol rate/Area] 52 ml/min/1.73sqm Invalid Interpretation Code AO Chemistry S Comment on above: Interpretive Data: GFR Population mean for , Non- Americans Ages 20-29 = 116 mL/min/1.73 sq.m. Ages 30-39 = 107 mL/min/1.73 sq.m. Ages 40-49 = 99 mL/min/1.73 sq.m. Ages 50-59 = 93 mL/min/1.73 sq.m. Ages 60-69 = 85 mL/min/1.73 sq.m. Ages 70+ = 75 mL/min/1.73 sq.m. Chronic Kidney Disease: Less than 60 mL/min/1.73 square meters End Stage Renal Disease: Less than 15 mL/min/1.73 square meters Globulin 2.6 G/dL Invalid Interpretation Code AO ADM SS Glucose [Mass/Vol] 148 mg/dL High 83 - 110 mg/dL AO ADM SS Glucose [Mass/Vol] 157 mg/dL Invalid Interpretation Code AO Chemistry S Comment on above: Interpretive Data: E stimated average glucose (eAG) is a calculated value from Hemoglobin A1C and is employment representative of the average blood glucose level in the last 2-3 month period. Normal range: less than 114 mg/dL HbA1c (Bld) [Mass fraction] 7.1 % High 4.3 - 6.4 % AO ADM SS Hematocrit (Bld) [Volume fraction] 40.3 % Normal 40.0 - 52.0 % AO Workflow SS Hemoglobin (Bld) [Mass/Vol] 13.5 G/dL Normal 13.0 - 17.5 G/dL AO Workflow SS Lymphocytes (Bld) [#/Vol] 1.7 103/mcL Normal 0.9 - 4.3 10^3/mcL AO Workflow SS Lymphocytes/100 WBC (Bld) 17.2 % Low 20.0 - 40.0 % AO Workflow SS MCH (RBC) [Entitic mass] 30.0 pg Normal 27.0 - 33.0 pg AO Workflow SS MCHC 33.5 G/dL Normal 32.0 - 36.0 G/dL AO Workflow SS MCV (RBC) [Entitic vol] 89.6 fL Normal 81.0 - 100.0 fL AO Workflow SS Monocytes (Bld) [#/Vol] 1.2 103/mcL Normal 0.1 - 1.4 10^3/mcL AO Workflow SS Monocytes/100 WBC (Bld) 12.2 % Normal 2.0 - 13.0 % AO Workflow SS Neutrophils (Bld) [#/Vol] 6.4 103/mcL Normal 2.3 - 8.1 10^3/mcL AO Workflow SS Neutrophils/100 WBC (Bld) 64.3 % Normal 50.0 - 75.0 % AO Workflow SS Platelet mean volume (Bld) [Entitic vol] 7.7 fL Normal 6.4 - 10.5 fL AO Workflow SS Platelets (Bld) [#/Vol] 226 103/mcL Normal 150 - 450 10^3/mcL AO Workflow SS Potassium [Moles/Vol] 4.4 mmol/L Normal 3.5 - 5.1 mmol/L AO ADM SS Protein [Mass/Vol] 6.5 G/dL Normal 6.4 - 8.2 G/dL AO ADM SS RBC (Bld) [#/Vol] 4.50 106/mcL Normal 4.50 - 6.0 0 10^6/mcL AO Workflow SS Sodium [Moles/Vol] 139 mmol/L Normal 136 - 145 mmol/L AO ADM SS TSH Qn 0.35 m[IU]/L Low 0.36 - 3.74 mcIU/mL AO ADM SS Urea nitrogen [Mass/Vol] 30 mg/dL High 7 - 18 mg/dL AO ADM SS Urea nitrogen/Creatinine [Mass ratio] 23 ratio Normal 7 - 27 ratio AO ADM SS WBC (Bld) [#/Vol] 10.0 103/mcL Normal 4.5 - 10.8 10^3/mcL AO Workflow SS TSHon 10-07-2024 TSH Qn 0.35 m[IU]/L Low 0.36-3.74 [facility] Comment on above: Performed By: #### A PTT, TROPHS, ADIFF, PRO, ANEU, MORPH, GFR, MDW, BMP, CBC #### [address] [address] VIDHon 10-07-2024 Vit. D 25-Hydroxy 91.9 ng/mL Normal [facility] Comment on above: Result Comment: Inte rpretive Values Based on Total 25(OH) Vitamin D: Deficient <20 ng/mL Insufficient 20 - <30 ng/mL Sufficient 30-100 ng/mL Performed By: #### A PTT, TROPHS, ADIFF, PRO, ANEU, MORPH, GFR, MDW, BMP, CBC #### [address] [address] PSA,Total- Diagnosticon 09-25 PSA, DIAGNOSTIC < 0.01 Normal 0.0-4.0 [facility] Comment on above: Result Comment: This test was performed using the TPSA assay method for the scanR chemistry system. Values obtained with different assay methods cannot be used interchangably. When changing PSA assays in the course of monitoring a patient, additional sequential testing should be carried out to confirm baseline values. Performed By: #### L [id number] #### [facility] [address] [place], [place], [id number] Urine Cultureon 07-14-2024 [facility] Presumptive E. coli [place] Count 50,000-80,000 Presumptive E. coli: REACTION Ampicillin Islt JASS >=32 R Ampicillin+Sulbac Islt JASS 16 I ceFAZolin Islt JASS <=4 S Cefepime Islt JASS <=0.12 S cefTRIAXone Islt JASS <=0.25 S Ciprofloxacin Islt JASS <=0.25 S Ertapenem Islt JASS <=0.12 S B-Lactamase Extended Susc Islt NEG Gentamicin Islt JASS <=1 S Imipenem Islt JASS <=0.25 S levoFLOXacin Islt JASS <=0.12 S Nitrofurantoin Islt JASS <=16 S Pip+Tazo Islt JASS <=4 S Tobramycin Islt JASS <=1 S TMP SMX Islt JASS <=20 S Normal [facility] Comment on above: Performed By: #### M [id number] #### [facility] [address] [facility] [place], [address] LIPIDon 03-04-2024 Cholesterol [Mass/Vol] 65 mg/dL Normal 0-200 [facility] ([place]) Comment on above: Result Comment: Chol esterol Reference Interval: Less than 200 Desirable 200-239 Borderline high risk 240 and above High risk Performed By: #### F T4, VIDH, TSH, FT3 #### [address] [address] #### THYAB #### [address] [address] Cholesterol in HDL [Mass/Vol] 46 mg/dL Normal 40-60 [facility] ([place]) Comment on above: Performed By: #### F T4, VIDH, TSH, FT3 #### [address] [address] #### THYAB #### [address] [address] Cholesterol in LDL [Mass/Vol] 5 mg/dL Normal 0-130 [facility] ([place]) Comment on above: Performed By: #### F T4, VIDH, TSH, FT3 #### [place] [address] [place], [place] [address] #### THYAB #### [address] [address] Triglyceride [Mass/Vol] 69 mg/dL Normal 0-150 [facility] ([place]) Comment on above: Result Comment: Trig lyceride Reference Interval: Less than 150 Normal 150-199 Borderline high risk 200-499 High risk 500 or higher Very high risk Performed By: #### F T4, VIDH, TSH, FT3 #### [place] [address] [place], [place] [address] #### THYAB #### [address] [address] .GFRon 02-29-2024 GFR 61 ml/min/1.73sqm Normal [facility] ([place]) Comment on above: Result Comment: GFR Population mean for , Non- Americans Ages 20-29 = 116 mL/min/1.73 sq.m. Ages 30-39 = 107 mL/min/1.73 sq.m. Ages 40-49 = 99 mL/min/1.73 sq.m. Ages 50-59 = 93 mL/min/1.73 sq.m. Ages 60-69 = 85 mL/min/1.73 sq.m. Ages 70+ = 75 mL/min/1.73 sq.m. Chronic Kidney Disease: Less than 60 mL/min/1.73 square meters End Stage Renal Disease: Less than 15 mL/min/1.73 square meters Performed By: #### F T4, VIDH, TSH, FT3 #### [address] [address] #### THYAB #### [address] [address] GFR Non- 50 ml/min/1.73sqm Normal [facility] ([place]) Comment on above: Result Comment: GFR Population mean for , Non- Americans Ages 20-29 = 116 mL/min/1.73 sq.m. Ages 30-39 = 107 mL/min/1.73 sq.m. Ages 40-49 = 99 mL/min/1.73 sq.m. Ages 50-59 = 93 mL/min/1.73 sq.m. Ages 60-69 = 85 mL/min/1.73 sq.m. Ages 70+ = 75 mL/min/1.73 sq.m. Chronic Kidney Disease: Less than 60 mL/min/1.73 square meters End Stage Renal Disease: Less than 15 mL/min/1.73 square meters Performed By: #### F T4, VIDH, TSH, FT3 #### [place] [address] #### THYAB #### [address] [address] [facility] 02-29-2024 Albumin Level 4.3 G/dL Normal 3.4-4.8 [facility] ([place]) Comment on above: Performed By: #### F T4, VIDH, TSH, FT3 #### [place] [address] #### THYAB #### [address] [address] Albumin/Globulin [Mass ratio] 1.6 {ratio} Normal 1.1-2.5 [facility] ([place]) Comment on above: Performed By: #### F T4, VIDH, TSH, FT3 #### [place] [address] #### THYAB #### [address] [address] ALP [Catalytic activity/Vol] 73 U/L Normal 40-135 [facility] ([place]) Comment on above: Performed By: #### F T4, VIDH, TSH, FT3 #### [place] [address] #### THYAB #### [address] [address] ALT [Catalytic activity/Vol] 26 U/L Normal 16-63 [facility] ([place]) Comment on above: Performed By: #### F T4, VIDH, TSH, FT3 #### [place] [address] #### THYAB #### [address] [address] AST [Catalytic activity/Vol] 20 U/L Normal 10-40 [facility] ([place]) Comment on above: Performed By: #### F T4, VIDH, TSH, FT3 #### [place] [address] #### THYAB #### [place] [address] Bili Total 0.6 mg/dL Normal 0.2-1.0 [facility] ([place]) Comment on above: Result Comment: Use of this assay is not recommended for patients undergoing treatment with eltrombopag due to the potential for falsely elevated results. Performed By: #### F T4, VIDH, TSH, FT3 #### [place] [address] #### THYAB #### [place] [address] BUN/Creatinine Ratio 29 ratio High 7-27 [facility] ([place]) Comment on above: Performed By: #### F T4, VIDH, TSH, FT3 #### [place] [address] #### THYAB #### [place] [id number] Calcium [Mass/Vol] 9.9 mg/dL Normal 8.4-10.2 [facility] ([place]) Comment on above: Performed By: #### F T4, VIDH, TSH, FT3 #### [place] [address] #### THYAB #### [place] [id number] Chloride [Moles/Vol] 105 mmol/L Normal 98-107 [facility] ([place]) Comment on above: Performed By: #### F T4, VIDH, TSH, FT3 #### [place] [address] #### THYAB #### [address] [address] CO2 [Moles/Vol] 26 mmol/L Normal 23-31 [facility] ([place]) Comment on above: Performed By: #### F T4, VIDH, TSH, FT3 #### [address] [address] #### THYAB #### [address] [address] Creatinine [Mass/Vol] 1.37 mg/dL High 0.70-1.30 [facility] ([place]) Comment on above: Performed By: #### F T4, VIDH, TSH, FT3 #### [place] [address] #### THYAB #### [address] [address] Electrolyte Balance 12.0 mEq/L Normal 4.0-15.0 [facility] ([place]) Comment on above: Performed By: #### F T4, VIDH, TSH, FT3 #### [place] [address] #### THYAB #### [address] [address] Globulin 2.7 G/dL Normal [facility] ([place]) Comment on above: Performed By: #### F T4, VIDH, TSH, FT3 #### [place] [address] #### THYAB #### [address] [address] Glucose [Mass/Vol] 163 mg/dL High 83-110 [facility] ([place]) Comment on above: Performed By: #### F T4, VIDH, TSH, FT3 #### [place] [address] #### THYAB #### [address] [address] Potassium [Moles/Vol] 5.2 mmol/L High 3.5-5.1 [facility] ([place]) Comment on above: Performed By: #### F T4, VIDH, TSH, FT3 #### [address] [address] #### THYAB #### [address] [address] Sodium [Moles/Vol] 143 mmol/L Normal 136-145 [facility] ([place]) Comment on above: Performed By: #### F T4, VIDH, TSH, FT3 #### [place] [address] #### THYAB #### [address] [address] Total Protein 7.0 G/dL Normal 6.4-8.2 [facility] ([place]) Comment on above: Performed By: #### F T4, VIDH, TSH, FT3 #### [place] [address] #### THYAB #### [address] [address] Urea nitrogen [Mass/Vol] 40 mg/dL High 7-18 [facility] ([place]) Comment on above: Performed By: #### F T4, VIDH, TSH, FT3 #### [address] [address] #### THYAB #### [address] [address] FT3on 02-29-2024 Free T3 [Mass/Vol] 2.74 pg/mL Normal 2.30-4.00 [facility] ([place]) Comment on above: Performed By: #### F T4, VIDH, TSH, FT3 #### [address] [address] #### THYAB #### [address] [address] FT4on 02-29-2024 Free T4 [Mass/Vol] 1.35 ng/dL Normal 0.76-1.46 [facility] ([place]) Comment on above: Performed By: #### F T4, VIDH, TSH, FT3 #### [place] [id number] [place], [place] [address] #### THYAB #### [address] [address] LABORATORYOrdered By: SYSTEM SYSTEM on 02-29-2024 Albumin BCP dye [Mass/Vol] 4.3 G/dL Normal 3.4 - 4.8 G/dL AO ADM SS Albumin/Globulin [Mass ratio] 1.6 {ratio} Normal 1.1 - 2.5 ratio AO ADM SS ALP [Catalytic activity/Vol] 73 U/L Normal 40 - 135 U/L AO ADM SS ALT With P-5'-P [Catalytic activity/Vol] 26 U/L Normal 16 - 63 U/L AO ADM SS AST With P-5'-P [Catalytic activity/Vol] 20 U/L Normal 10 - 40 U/L AO ADM SS Bilirubin [Mass/Vol] 0.6 mg/dL Normal 0.2 - 1 .0 mg/dL AO ADM SS Comment on above: Interpretive Data: U se of this assay is not recommended for patients undergoing treatment with eltrombopag due to the potential for falsely elevated results. Calcium [Mass/Vol] 9.9 mg/dL Normal 8.4 - 10. 2 mg/dL AO ADM SS Chloride [Moles/Vol] 105 mmol/L Normal 98 - 10 7 mmol/L AO ADM SS CO2 [Moles/Vol] 26 mmol/L Normal 23 - 31 mmol/L AO ADM SS Creatinine [Mass/Vol] 1.37 mg/dL High 0.70 - 1.30 mg/dL AO ADM SS Electrolyte Balance 12.0 mEq/L Normal 4.0 - 15 .0 mEq/L AO ADM SS Free T3 [Mass/Vol] 2.74 pg/mL Normal 2.30 - 4. 00 pg/mL AO ADM SS Free T4 [Mass/Vol] 1.35 ng/dL Normal 0.76 - 1. 46 ng/dL AO ADM SS GFR/1.73 sq M.predicted among blacks MDRD (S/P/Bld) [Vol rate/Area] 61 ml/min/1.73sqm Invalid Interpretation Code AO Chemistry S Comment on above: Interpretive Data: GFR Population mean for , Non- Americans Ages 20-29 = 116 mL/min/1.73 sq.m. Ages 30-39 = 107 mL/min/1.73 sq.m. Ages 40-49 = 99 mL/min/1.73 sq.m. Ages 50-59 = 93 mL/min/1.73 sq.m. Ages 60-69 = 85 mL/min/1.73 sq.m. Ages 70+ = 75 mL/min/1.73 sq.m. Chronic Kidney Disease: Less than 60 mL/min/1.73 square meters End Stage Renal Disease: Less than 15 mL/min/1.73 square meters GFR/1.73 sq M.predicted among non-blacks MDRD (S/P/Bld) [Vol rate/Area] 50 ml/min/1.73sqm Invalid Interpretation Code AO Chemistry S Comment on above: Interpretive Data: GFR Population mean for , Non- Americans Ages 20-29 = 116 mL/min/1.73 sq.m. Ages 30-39 = 107 mL/min/1.73 sq.m. Ages 40-49 = 99 mL/min/1.73 sq.m. Ages 50-59 = 93 mL/min/1.73 sq.m. Ages 60-69 = 85 mL/min/1.73 sq.m. Ages 70+ = 75 mL/min/1.73 sq.m. Chronic Kidney Disease: Less than 60 mL/min/1.73 square meters End Stage Renal Disease: Less than 15 mL/min/1.73 square meters Globulin 2.7 G/dL Invalid Interpretation Code AO ADM SS Glucose [Mass/Vol] 163 mg/dL High 83 - 110 mg/dL AO ADM SS Potassium [Moles/Vol] 5.2 mmol/L High 3.5 - 5.1 mmol/L AO ADM SS Protein [Mass/Vol] 7.0 G/dL Normal 6.4 - 8.2 G/dL AO ADM SS Sodium [Moles/Vol] 143 mmol/L Normal 136 - 145 mmol/L AO ADM SS TSH Qn 0.40 m[IU]/L Normal 0.36 - 3.74 mcIU/mL AO ADM SS Urea nitrogen [Mass/Vol] 40 mg/dL High 7 - 18 mg/dL AO ADM SS Urea nitrogen/Creatinine [Mass ratio] 29 ratio High 7 - 27 ratio AO ADM SS TSHon 02-29-2024 TSH Qn 0.40 m[IU]/L Normal 0.36-3.74 [facility] ([place]) Comment on above: Performed By: #### F T4, VIDH, TSH, FT3 #### [address] [address] #### THYAB #### [place] [address] No Panel InformationOrdered By: Randy Ragland on 09-29-2023 Prostate Specific Antigen Total < 0.01 ng/mL 0.0-4.0 [facility] Comment on above: This test was perfor med using the TPSA assay method for [employer] chemistry system. Values obtained with differentassay methods cannot be used interchangably.When changing PSA assays in the course of monitoring apatient, additional sequential testing should be carriedout to confirm baseline values. .Auto Diffon 09-28-2023 Basophil, Absolute 0.1 10 3/mcL Normal 0.0-0.2 [facility] ([place]) Comment on above: Performed By: #### L IPID, ANEU, VIDH, MG, CBC, CMP, GFR, A1C, ADIFF #### [address] [address] Basophils/100 WBC (Bld) 0.9 % Normal 0.0-2.5 A [facility] ([place]) Comment on above: Performed By: #### L IPID, ANEU, VIDH, MG, CBC, CMP, GFR, A1C, ADIFF #### [address] [address] Eosinophil, Absolute 0.4 10 3/mcL Normal 0.0-0.4 [facility] ([place]) Comment on above: Performed By: #### L IPID, ANEU, VIDH, MG, CBC, CMP, GFR, A1C, ADIFF #### [address] [address] Eosinophils/100 WBC (Bld) 4.2 % Normal 0.0-7.0 [facility] ([place]) Comment on above: Performed By: #### L IPID, ANEU, VIDH, MG, CBC, CMP, GFR, A1C, ADIFF #### [address] [address] Lymphocyte, Absolute 1.8 10 3/mcL Normal 0.8-3.9 [facility] ([place]) Comment on above: Performed By: #### L IPID, ANEU, VIDH, MG, CBC, CMP, GFR, A1C, ADIFF #### [address] [address] Lymphocytes/100 WBC (Bld) 18.2 % Normal 10.0-50.0 [facility] ([place]) Comment on above: Performed By: #### L IPID, ANEU, VIDH, MG, CBC, CMP, GFR, A1C, ADIFF #### [address] [address] Monocyte, Absolute 1.1 10 3/mcL High 0.2-1.0 [facility] ([place]) Comment on above: Performed By: #### L IPID, ANEU, VIDH, MG, CBC, CMP, GFR, A1C, ADIFF #### [address] [address] Monocytes/100 WBC (Bld) 10.9 % Normal 1.7-13.0 A [facility] ([place]) Comment on above: Performed By: #### L IPID, ANEU, VIDH, MG, CBC, CMP, GFR, A1C, ADIFF #### [address] [address] Neutrophils/100 WBC (Bld) 65.8 % Normal 37.0-80.0 [facility] ([place]) Comment on above: Performed By: #### L IPID, ANEU, VIDH, MG, CBC, CMP, GFR, A1C, ADIFF #### [address] [address] .GFRon 09-28-2023 GFR Non- 46 ml/min/1.73sqm Normal [facility] ([place]) Comment on above: Result Comment: GFR Population mean for , Non- Americans Ages 20-29 = 116 mL/min/1.73 sq.m. Ages 30-39 = 107 mL/min/1.73 sq.m. Ages 40-49 = 99 mL/min/1.73 sq.m. Ages 50-59 = 93 mL/min/1.73 sq.m. Ages 60-69 = 85 mL/min/1.73 sq.m. Ages 70+ = 75 mL/min/1.73 sq.m. Chronic Kidney Disease: Less than 60 mL/min/1.73 square meters End Stage Renal Disease: Less than 15 mL/min/1.73 square meters Performed By: #### F T4, VIDH, TSH, FT3 #### [address] [address] #### THYAB #### [address] [address] GFR 56 ml/min/1.73sqm Normal [facility] ([place]) Comment on above: Result Comment: GFR Population mean for , Non- Americans Ages 20-29 = 116 mL/min/1.73 sq.m. Ages 30-39 = 107 mL/min/1.73 sq.m. Ages 40-49 = 99 mL/min/1.73 sq.m. Ages 50-59 = 93 mL/min/1.73 sq.m. Ages 60-69 = 85 mL/min/1.73 sq.m. Ages 70+ = 75 mL/min/1.73 sq.m. Chronic Kidney Disease: Less than 60 mL/min/1.73 square meters End Stage Renal Disease: Less than 15 mL/min/1.73 square meters Performed By: #### F T4, VIDH, TSH, FT3 #### [address] [address] #### THYAB #### [address] [address] .NEUABSon 09-28-2023 Neutrophil, Absolute 6.4 10 3/mcL High 2.9-6.2 [facility] ([place]) Comment on above: Performed By: #### L IPID, ANEU, VIDH, MG, CBC, CMP, GFR, A1C, ADIFF #### [address] [address] A1Con 09-28-2023 HbA1c (Bld) [Mass fraction] 7.5 % High 4.3-6.4 [facility] ([place]) Comment on above: Performed By: #### F T4, VIDH, TSH, FT3 #### [address] [address] #### THYAB #### [address] [address] CBCon 09-28-2023 Erythrocyte distribution width (RBC) [Ratio] 14.7 % High 11.5-14.5 [facility] ([place]) Comment on above: Performed By: #### L IPID, ANEU, VIDH, MG, CBC, CMP, GFR, A1C, ADIFF #### [address] [address] Hematocrit (Bld) [Volume fraction] 41.7 % Low 42.0-52.0 [facility] ([place]) Comment on above: Performed By: #### L IPID, ANEU, VIDH, MG, CBC, CMP, GFR, A1C, ADIFF #### [address] [address] Hgb 13.9 G/dL Low 14.0-18.0 [facility] ([place]) Comment on above: Performed By: #### L IPID, ANEU, VIDH, MG, CBC, CMP, GFR, A1C, ADIFF #### [address] [address] MCH (RBC) [Entitic mass] 29.8 pg Normal 27.0-31.2 [facility] ([place]) Comment on above: Performed By: #### L IPID, ANEU, VIDH, MG, CBC, CMP, GFR, A1C, ADIFF #### [address] [address] MCHC 33.3 G/dL Normal 31.8-35.4 [facility] ([place]) Comment on above: Performed By: #### L IPID, ANEU, VIDH, MG, CBC, CMP, GFR, A1C, ADIFF #### [address] [address] MCV (RBC) [Entitic vol] 89.5 fL Normal 80.0-94.0 A [facility] ([place]) Comment on above: Performed By: #### L IPID, ANEU, VIDH, MG, CBC, CMP, GFR, A1C, ADIFF #### [address] [address] Platelet 211 10 3/mcL Normal 130-400 [facility] ([place]) Comment on above: Performed By: #### L IPID, ANEU, VIDH, MG, CBC, CMP, GFR, A1C, ADIFF #### [address] [address] Platelet mean volume (Bld) [Entitic vol] 7.9 fL Normal 7.4-10.4 [facility] ([place]) Comment on above: Performed By: #### L IPID, ANEU, VIDH, MG, CBC, CMP, GFR, A1C, ADIFF #### [address] [address] RBC 4.66 10 6/mcL Normal 4.04-6.13 [facility] ([place]) Comment on above: Performed By: #### L IPID, ANEU, VIDH, MG, CBC, CMP, GFR, A1C, ADIFF #### [address] [address] WBC 9.7 10 3/mcL Normal 4.6-10.8 [facility] ([place]) Comment on above: Performed By: #### L IPID, ANEU, VIDH, MG, CBC, CMP, GFR, A1C, ADIFF #### [address] [address] CMPon 09-28-2023 Albumin Level 3.9 G/dL Normal 3.4-4.8 [facility] ([place]) Comment on above: Performed By: #### F T4, VIDH, TSH, FT3 #### [place] [address] #### THYAB #### [address] [address] Albumin/Globulin [Mass ratio] 1.3 {ratio} Normal 1.1-2.5 [facility] ([place]) Comment on above: Performed By: #### F T4, VIDH, TSH, FT3 #### [place] [address] #### THYAB #### [address] [address] ALP [Catalytic activity/Vol] 62 U/L Normal 40-135 [facility] ([place]) Comment on above: Performed By: #### F T4, VIDH, TSH, FT3 #### [place] [address] #### THYAB #### [address] [address] ALT [Catalytic activity/Vol] 19 U/L Normal 16-63 [facility] ([place]) Comment on above: Performed By: #### F T4, VIDH, TSH, FT3 #### [place] [address] #### THYAB #### [place] [address] AST [Catalytic activity/Vol] 17 U/L Normal 10-40 [facility] ([place]) Comment on above: Performed By: #### F T4, VIDH, TSH, FT3 #### [place] [address] #### THYAB #### [address] [address] Bili Total 0.7 mg/dL Normal 0.2-1.0 [facility] ([place]) Comment on above: Result Comment: Use of this assay is not recommended for patients undergoing treatment with eltrombopag due to the potential for falsely elevated results. Performed By: #### F T4, VIDH, TSH, FT3 #### [place] [address] #### THYAB #### [address] [address] BUN/Creatinine Ratio 26 ratio Normal 7-27 [facility] ([place]) Comment on above: Performed By: #### F T4, VIDH, TSH, FT3 #### [address] [address] #### THYAB #### [address] [address] Calcium [Mass/Vol] 9.6 mg/dL Normal 8.4-10.2 [facility] ([place]) Comment on above: Performed By: #### F T4, VIDH, TSH, FT3 #### [place] [address] #### THYAB #### [place] [address] Chloride [Moles/Vol] 105 mmol/L Normal 98-107 [facility] ([place]) Comment on above: Performed By: #### F T4, VIDH, TSH, FT3 #### [place] [address] #### THYAB #### [address] [address] CO2 [Moles/Vol] 27 mmol/L Normal 23-31 [facility] ([place]) Comment on above: Performed By: #### F T4, VIDH, TSH, FT3 #### [place] [address] #### THYAB #### [place] [address] Creatinine [Mass/Vol] 1.48 mg/dL High 0.70-1.30 [facility] ([place]) Comment on above: Performed By: #### F T4, VIDH, TSH, FT3 #### [place] [address] #### THYAB #### [address] [address] Electrolyte Balance 10.0 mEq/L Normal 4.0-15.0 [facility] ([place]) Comment on above: Performed By: #### F T4, VIDH, TSH, FT3 #### [address] [address] #### THYAB #### [address] [address] Globulin 2.9 G/dL Normal [facility] ([place]) Comment on above: Performed By: #### F T4, VIDH, TSH, FT3 #### [place] [address] #### THYAB #### [address] [address] Glucose [Mass/Vol] 157 mg/dL High 83-110 [facility] ([place]) Comment on above: Performed By: #### F T4, VIDH, TSH, FT3 #### [place] [address] #### THYAB #### [address] [address] Potassium [Moles/Vol] 4.5 mmol/L Normal 3.5-5.1 [facility] ([place]) Comment on above: Performed By: #### F T4, VIDH, TSH, FT3 #### [place] [address] #### THYAB #### [address] [address] Sodium [Moles/Vol] 142 mmol/L Normal 136-145 [facility] ([place]) Comment on above: Performed By: #### F T4, VIDH, TSH, FT3 #### [address] [address] #### THYAB #### [address] [address] Total Protein 6.8 G/dL Normal 6.4-8.2 [facility] ([place]) Comment on above: Performed By: #### F T4, VIDH, TSH, FT3 #### [place] [address] #### THYAB #### [place] [address] Urea nitrogen [Mass/Vol] 39 mg/dL High 7-18 [facility] ([place]) Comment on above: Performed By: #### F T4, VIDH, TSH, FT3 #### [address] [address] #### THYAB #### [place] [address] FT3on 09-28-2023 Free T3 [Mass/Vol] 2.26 pg/mL Low 2.30-4.00 [facility] ([place]) Comment on above: Performed By: #### F T4, VIDH, TSH, FT3 #### [place] [address] #### THYAB #### [place] [address] FT4on 09-28-2023 Free T4 [Mass/Vol] 1.30 ng/dL Normal 0.76-1.46 [facility] ([place]) Comment on above: Performed By: #### F T4, VIDH, TSH, FT3 #### [place] [address] #### THYAB #### [place] [address] LABORATORYOrdered By: SYSTEM SYSTEM on 09-28-2023 25-hydroxyvitamin D3 [Mass/Vol] 98.9 ng/mL Invalid Interpretation Code AO ADM SS Comment on above: Interpretive Data: I nterpretive Values Based on Total 25(OH) Vitamin D: Deficient <20 ng/mL Insufficient 20 - <30 ng/mL Sufficient 30-100 ng/mL Albumin BCP dye [Mass/Vol] 3.9 G/dL Normal 3.4 - 4.8 G/dL AO ADM SS Albumin/Globulin [Mass ratio] 1.3 {ratio} Normal 1.1 - 2.5 ratio AO ADM SS ALP [Catalytic activity/Vol] 62 U/L Normal 40 - 135 U/L AO ADM SS ALT With P-5'-P [Catalytic activity/Vol] 19 U/L Normal 16 - 63 U/L AO ADM SS AST With P-5'-P [Catalytic activity/Vol] 17 U/L Normal 10 - 40 U/L AO ADM SS Basophil, Absolute 0.1 103/mcL Normal 0.0 - 0.2 10^3/mcL AO Workflow SS Basophils/100 WBC (Bld) 0.9 % Normal 0.0 - 2.5 % AO Workflow SS Bilirubin [Mass/Vol] 0.7 mg/dL Normal 0.2 - 1 .0 mg/dL AO ADM SS Comment on above: Interpretive Data: U se of this assay is not recommended for patients undergoing treatment with eltrombopag due to the potential for falsely elevated results. Calcium [Mass/Vol] 9.6 mg/dL Normal 8.4 - 10. 2 mg/dL AO ADM SS Chloride [Moles/Vol] 105 mmol/L Normal 98 - 10 7 mmol/L AO ADM SS CO2 [Moles/Vol] 27 mmol/L Normal 23 - 31 mmol/L AO ADM SS Creatinine [Mass/Vol] 1.48 mg/dL High 0.70 - 1.30 mg/dL AO ADM SS Electrolyte Balance 10.0 mEq/L Normal 4.0 - 15 .0 mEq/L AO ADM SS Eosinophil, Absolute 0.4 103/mcL Normal 0.0 - 0 .4 10^3/mcL AO Workflow SS Eosinophils/100 WBC (Bld) 4.2 % Normal 0.0 - 7.0 % AO Workflow SS Erythrocyte distribution width (RBC) [Ratio] 14.7 % High 11.5 - 14.5 % AO Workflow SS GFR/1.73 sq M.predicted among blacks MDRD (S/P/Bld) [Vol rate/Area] 56 ml/min/1.73sqm Invalid Interpretation Code AO Chemistry S Comment on above: Interpretive Data: GFR Population mean for , Non- Americans Ages 20-29 = 116 mL/min/1.73 sq.m. Ages 30-39 = 107 mL/min/1.73 sq.m. Ages 40-49 = 99 mL/min/1.73 sq.m. Ages 50-59 = 93 mL/min/1.73 sq.m. Ages 60-69 = 85 mL/min/1.73 sq.m. Ages 70+ = 75 mL/min/1.73 sq.m. Chronic Kidney Disease: Less than 60 mL/min/1.73 square meters End Stage Renal Disease: Less than 15 mL/min/1.73 square meters GFR/1.73 sq M.predicted among non-blacks MDRD (S/P/Bld) [Vol rate/Area] 46 ml/min/1.73sqm Invalid Interpretation Code AO Chemistry S Comment on above: Interpretive Data: GFR Population mean for , Non- Americans Ages 20-29 = 116 mL/min/1.73 sq.m. Ages 30-39 = 107 mL/min/1.73 sq.m. Ages 40-49 = 99 mL/min/1.73 sq.m. Ages 50-59 = 93 mL/min/1.73 sq.m. Ages 60-69 = 85 mL/min/1.73 sq.m. Ages 70+ = 75 mL/min/1.73 sq.m. Chronic Kidney Disease: Less than 60 mL/min/1.73 square meters End Stage Renal Disease: Less than 15 mL/min/1.73 square meters Globulin 2.9 G/dL Invalid Interpretation Code AO ADM SS Glucose [Mass/Vol] 157 mg/dL High 83 - 110 mg/dL AO ADM SS HbA1c (Bld) [Mass fraction] 7.5 % High 4.3 - 6.4 % AO ADM SS Hematocrit (Bld) [Volume fraction] 41.7 % Low 42.0 - 52.0 % AO Workflow SS Hemoglobin (Bld) [Mass/Vol] 13.9 G/dL Low 14.0 - 18.0 G/dL AO Workflow SS Lymphocyte, Absolute 1.8 103/mcL Normal 0.8 - 3 .9 10^3/mcL AO Workflow SS Lymphocytes/100 WBC (Bld) 18.2 % Normal 10.0 - 50.0 % AO Workflow SS Magnesium [Mass/Vol] 1.7 mg/dL Low 1.8 - 2 .4 mg/dL AO ADM SS MCH (RBC) [Entitic mass] 29.8 pg Normal 27.0 - 31.2 pg AO Workflow SS MCHC 33.3 G/dL Normal 31.8 - 35.4 G/dL AO Workflow SS MCV (RBC) [Entitic vol] 89.5 fL Normal 80.0 - 94.0 fL AO Workflow SS Monocyte, Absolute 1.1 103/mcL High 0.2 - 1.0 10^3/mcL AO Workflow SS Monocytes/100 WBC (Bld) 10.9 % Normal 1.7 - 13.0 % AO Workflow SS Neutrophil, Absolute 6.4 103/mcL High 2.9 - 6 .2 10^3/mcL AO Workflow SS Neutrophils/100 WBC (Bld) 65.8 % Normal 37.0 - 80.0 % AO Workflow SS Platelet mean volume (Bld) [Entitic vol] 7.9 fL Normal 7.4 - 10.4 fL AO Workflow SS Platelets (Bld) [#/Vol] 211 103/mcL Normal 130 - 400 10^3/mcL AO Workflow SS Potassium [Moles/Vol] 4.5 mmol/L Normal 3.5 - 5.1 mmol/L AO ADM SS Protein [Mass/Vol] 6.8 G/dL Normal 6.4 - 8.2 G/dL AO ADM SS RBC (Bld) [#/Vol] 4.66 106/mcL Normal 4.04 - 6.1 3 10^6/mcL AO Workflow SS Sodium [Moles/Vol] 142 mmol/L Normal 136 - 145 mmol/L AO ADM SS Urea nitrogen [Mass/Vol] 39 mg/dL High 7 - 18 mg/dL AO ADM SS Urea nitrogen/Creatinine [Mass ratio] 26 ratio Normal 7 - 27 ratio AO ADM SS WBC (Bld) [#/Vol] 9.7 103/mcL Normal 4.6 - 10.8 10^3/mcL AO Workflow SS LABORATORYOrdered By: Luz Wright on 09-28-2023 Cholesterol [Mass/Vol] 93 mg/dL Normal 0 - 2 00 mg/dL AO ADM SS Comment on above: Interpretive Data: C holesterol Reference Interval: Less than 200 Desirable 200-239 Borderline high risk 240 and above High risk Cholesterol in HDL [Mass/Vol] 46 mg/dL Normal 40 - 60 mg/dL AO ADM SS Cholesterol in LDL [Mass/Vol] 30 mg/dL Normal 0 - 130 mg/dL AO ADM SS Triglyceride [Mass/Vol] 86 mg/dL Normal 0 - 150 mg/dL AO ADM SS Comment on above: Interpretive Data: T riglyceride Reference Interval: Less than 150 Normal 150-199 Borderline high risk 200-499 High risk 500 or higher Very high risk LIPIDon 09-28-2023 Cholesterol [Mass/Vol] 93 mg/dL Normal 0-200 [facility] ([place]) Comment on above: Result Comment: Chol esterol Reference Interval: Less than 200 Desirable 200-239 Borderline high risk 240 and above High risk Performed By: #### F T4, VIDH, TSH, FT3 #### [address] [address] #### THYAB #### [address] [address] Cholesterol in HDL [Mass/Vol] 46 mg/dL Normal 40-60 [facility] ([place]) Comment on above: Performed By: #### F T4, VIDH, TSH, FT3 #### [place] [address] #### THYAB #### [address] [address] Cholesterol in LDL [Mass/Vol] 30 mg/dL Normal 0-130 [facility] ([place]) Comment on above: Performed By: #### F T4, VIDH, TSH, FT3 #### [address] [address] #### THYAB #### [address] [address] Triglyceride [Mass/Vol] 86 mg/dL Normal 0-150 [facility] ([place]) Comment on above: Result Comment: Trig lyceride Reference Interval: Less than 150 Normal 150-199 Borderline high risk 200-499 High risk 500 or higher Very high risk Performed By: #### F T4, VIDH, TSH, FT3 #### [place] [address] #### THYAB #### [address] [address] MGon 09-28-2023 Magnesium [Mass/Vol] 1.7 mg/dL Low 1.8-2.4 [facility] ([place]) Comment on above: Performed By: #### L IPID, ANEU, VIDH, MG, CBC, CMP, GFR, A1C, ADIFF #### [place] [id number] TSHon 09-28-2023 TSH Qn 0.38 m[IU]/L Normal 0.36-3.74 [facility] ([place]) Comment on above: Performed By: #### F T4, VIDH, TSH, FT3 #### [address] [address] #### THYAB #### [place] [address] VIDHon 09-28-2023 Vit. D 25-Hydroxy 98.9 ng/mL Normal [facility] ([place]) Comment on above: Result Comment: Inte rpretive Values Based on Total 25(OH) Vitamin D: Deficient <20 ng/mL Insufficient 20 - <30 ng/mL Sufficient 30-100 ng/mL Performed By: #### F T4, VIDH, TSH, FT3 #### [place] [address] #### THYAB #### [place] [address] .Auto Diffon 07-07-2023 Basophil, Absolute 0.1 10 3/mcL Normal 0.0-0.2 [facility] ([place]) Comment on above: Performed By: #### F T4, VIDH, TSH, FT3 #### [place] [address] #### THYAB #### [place] [address] Basophils/100 WBC (Bld) 0.6 % Normal 0.0-2.5 A [facility] ([place]) Comment on above: Performed By: #### F T4, VIDH, TSH, FT3 #### [place] [address] #### THYAB #### [place] [address] Eosinophil, Absolute 0.3 10 3/mcL Normal 0.0-0.4 [facility] ([place]) Comment on above: Performed By: #### F T4, VIDH, TSH, FT3 #### [place] [address] #### THYAB #### [address] [address] Eosinophils/100 WBC (Bld) 3.5 % Normal 0.0-7.0 [facility] ([place]) Comment on above: Performed By: #### F T4, VIDH, TSH, FT3 #### [address] [address] #### THYAB #### [address] [address] Lymphocyte, Absolute 1.3 10 3/mcL Normal 0.8-3.9 [facility] ([place]) Comment on above: Performed By: #### F T4, VIDH, TSH, FT3 #### [place] [address] #### THYAB #### [address] [address] Lymphocytes/100 WBC (Bld) 14.2 % Normal 10.0-50.0 [facility] ([place]) Comment on above: Performed By: #### F T4, VIDH, TSH, FT3 #### [place] [address] #### THYAB #### [address] [address] Monocyte, Absolute 0.9 10 3/mcL Normal 0.2-1.0 [facility] ([place]) Comment on above: Performed By: #### F T4, VIDH, TSH, FT3 #### [place] [address] #### THYAB #### [address] [address] Monocytes/100 WBC (Bld) 9.9 % Normal 1.7-13.0 [facility] ([place]) Comment on above: Performed By: #### F T4, VIDH, TSH, FT3 #### [address] [address] #### THYAB #### [address] [address] Neutrophils/100 WBC (Bld) 71.8 % Normal 37.0-80.0 [facility] ([place]) Comment on above: Performed By: #### F T4, VIDH, TSH, FT3 #### [address] [address] #### THYAB #### [address] [address] .GFRon 07-07-2023 GFR Non- 43 ml/min/1.73sqm Normal [facility] ([place]) Comment on above: Result Comment: GFR Population mean for , Non- Americans Ages 20-29 = 116 mL/min/1.73 sq.m. Ages 30-39 = 107 mL/min/1.73 sq.m. Ages 40-49 = 99 mL/min/1.73 sq.m. Ages 50-59 = 93 mL/min/1.73 sq.m. Ages 60-69 = 85 mL/min/1.73 sq.m. Ages 70+ = 75 mL/min/1.73 sq.m. Chronic Kidney Disease: Less than 60 mL/min/1.73 square meters End Stage Renal Disease: Less than 15 mL/min/1.73 square meters Performed By: #### F T4, VIDH, TSH, FT3 #### [address] [address] #### THYAB #### [address] [address] GFR 52 ml/min/1.73sqm Normal [facility] ([place]) Comment on above: Result Comment: GFR Population mean for , Non- Americans Ages 20-29 = 116 mL/min/1.73 sq.m. Ages 30-39 = 107 mL/min/1.73 sq.m. Ages 40-49 = 99 mL/min/1.73 sq.m. Ages 50-59 = 93 mL/min/1.73 sq.m. Ages 60-69 = 85 mL/min/1.73 sq.m. Ages 70+ = 75 mL/min/1.73 sq.m. Chronic Kidney Disease: Less than 60 mL/min/1.73 square meters End Stage Renal Disease: Less than 15 mL/min/1.73 square meters Performed By: #### F T4, VIDH, TSH, FT3 #### [place] [address] #### THYAB #### [address] [address] .NEUABSon 07-07-2023 Neutrophil, Absolute 6.7 10 3/mcL High 2.9-6.2 [facility] ([place]) Comment on above: Performed By: #### F T4, VIDH, TSH, FT3 #### [place] [address] #### THYAB #### [place] [address] CBCon 07-07-2023 Erythrocyte distribution width (RBC) [Ratio] 14.2 % Normal 11.5-14.5 [facility] ([place]) Comment on above: Performed By: #### F T4, VIDH, TSH, FT3 #### [place] [address] #### THYAB #### [place] [address] Hematocrit (Bld) [Volume fraction] 40.6 % Low 42.0-52.0 [facility] ([place]) Comment on above: Performed By: #### F T4, VIDH, TSH, FT3 #### [place] [address] #### THYAB #### [place] [address] Hgb 13.7 G/dL Low 14.0-18.0 [facility] ([place]) Comment on above: Performed By: #### F T4, VIDH, TSH, FT3 #### [place] [address] #### THYAB #### [place] [address] MCH (RBC) [Entitic mass] 29.7 pg Normal 27.0-31.2 [facility] ([place]) Comment on above: Performed By: #### F T4, VIDH, TSH, FT3 #### [place] [address] #### THYAB #### [place] [address] MCHC 33.8 G/dL Normal 31.8-35.4 [facility] ([place]) Comment on above: Performed By: #### F T4, VIDH, TSH, FT3 #### [place] [address] #### THYAB #### [place] [address] MCV (RBC) [Entitic vol] 88.1 fL Normal 80.0-94.0 A [facility] ([place]) Comment on above: Performed By: #### F T4, VIDH, TSH, FT3 #### [place] [address] #### THYAB #### [place] [address] Platelet 203 10 3/mcL Normal 130-400 [facility] ([place]) Comment on above: Performed By: #### F T4, VIDH, TSH, FT3 #### [place] [address] #### THYAB #### [place] [address] Platelet mean volume (Bld) [Entitic vol] 7.8 fL Normal 7.4-10.4 [facility] ([place]) Comment on above: Performed By: #### F T4, VIDH, TSH, FT3 #### [place] [address] #### THYAB #### [place] [address] RBC 4.61 10 6/mcL Normal 4.04-6.13 [facility] ([place]) Comment on above: Performed By: #### F T4, VIDH, TSH, FT3 #### [place] [address] #### THYAB #### [address] [address] WBC 9.3 10 3/mcL Normal 4.6-10.8 [facility] ([place]) Comment on above: Performed By: #### F T4, VIDH, TSH, FT3 #### [place] [address] #### THYAB #### [address] [address] CMPon 07-07-2023 Albumin Level 4.1 G/dL Normal 3.4-4.8 [facility] ([place]) Comment on above: Performed By: #### F T4, VIDH, TSH, FT3 #### [place] [address] #### THYAB #### [place] [address] Albumin/Globulin [Mass ratio] 1.4 {ratio} Normal 1.1-2.5 [facility] ([place]) Comment on above: Performed By: #### F T4, VIDH, TSH, FT3 #### [place] [address] #### THYAB #### [place] [address] ALP [Catalytic activity/Vol] 65 U/L Normal 40-135 [facility] ([place]) Comment on above: Performed By: #### F T4, VIDH, TSH, FT3 #### [place] [address] #### THYAB #### [address] [address] ALT [Catalytic activity/Vol] 23 U/L Normal 16-63 [facility] ([place]) Comment on above: Performed By: #### F T4, VIDH, TSH, FT3 #### [place] [address] #### THYAB #### [address] [address] AST [Catalytic activity/Vol] 17 U/L Normal 10-40 [facility] ([place]) Comment on above: Performed By: #### F T4, VIDH, TSH, FT3 #### [address] [address] #### THYAB #### [address] [address] Bili Total 0.7 mg/dL Normal 0.2-1.0 [facility] ([place]) Comment on above: Result Comment: Use of this assay is not recommended for patients undergoing treatment with eltrombopag due to the potential for falsely elevated results. Performed By: #### F T4, VIDH, TSH, FT3 #### [place] [address] #### THYAB #### [place] [address] BUN/Creatinine Ratio 24 ratio Normal 7-27 [facility] ([place]) Comment on above: Performed By: #### F T4, VIDH, TSH, FT3 #### [place] [address] #### THYAB #### [place] [address] Calcium [Mass/Vol] 9.1 mg/dL Normal 8.4-10.2 [facility] ([place]) Comment on above: Performed By: #### F T4, VIDH, TSH, FT3 #### [place] [address] #### THYAB #### [address] [address] Chloride [Moles/Vol] 101 mmol/L Normal 98-107 [facility] ([place]) Comment on above: Performed By: #### F T4, VIDH, TSH, FT3 #### [place] [id number] #### THYAB #### [place] [id number] CO2 [Moles/Vol] 26 mmol/L Normal 23-31 [facility] ([place]) Comment on above: Performed By: #### F T4, VIDH, TSH, FT3 #### [address] [address] #### THYAB #### [address] [address] Creatinine [Mass/Vol] 1.57 mg/dL High 0.70-1.30 [facility] ([place]) Comment on above: Performed By: #### F T4, VIDH, TSH, FT3 #### [address] [address] #### THYAB #### [address] [address] Electrolyte Balance 13.0 mEq/L Normal 4.0-15.0 [facility] ([place]) Comment on above: Performed By: #### F T4, VIDH, TSH, FT3 #### [place] [address] #### THYAB #### [address] [address] Globulin 3.0 G/dL Normal [facility] ([place]) Comment on above: Performed By: #### F T4, VIDH, TSH, FT3 #### [place] [address] #### THYAB #### [address] [address] Glucose [Mass/Vol] 270 mg/dL High 83-110 [facility] ([place]) Comment on above: Performed By: #### F T4, VIDH, TSH, FT3 #### [place] [address] #### THYAB #### [address] [address] Potassium [Moles/Vol] 5.1 mmol/L Normal 3.5-5.1 [facility] ([place]) Comment on above: Performed By: #### F T4, VIDH, TSH, FT3 #### [place] [id number] #### THYAB #### [address] [address] Sodium [Moles/Vol] 140 mmol/L Normal 136-145 [facility] ([place]) Comment on above: Performed By: #### F T4, VIDH, TSH, FT3 #### [address] [address] #### THYAB #### [address] [address] Total Protein 7.1 G/dL Normal 6.4-8.2 [facility] ([place]) Comment on above: Performed By: #### F T4, VIDH, TSH, FT3 #### [place] [address] #### THYAB #### [place] [address] Urea nitrogen [Mass/Vol] 37 mg/dL High 7-18 [facility] ([place]) Comment on above: Performed By: #### F T4, VIDH, TSH, FT3 #### [place] [address] #### THYAB #### [place] [address] FT3on 07-07-2023 Free T3 [Mass/Vol] 2.83 pg/mL Normal 2.30-4.00 [facility] ([place]) Comment on above: Performed By: #### F T4, VIDH, TSH, FT3 #### [place] [address] #### THYAB #### [place] [id number] FT4on 07-07-2023 Free T4 [Mass/Vol] 1.20 ng/dL Normal 0.76-1.46 [facility] ([place]) Comment on above: Performed By: #### F T4, VIDH, TSH, FT3 #### [place] [address] #### THYAB #### [place] [id number] [address] [place] [address] LABORATORYOrdered By: SYSTEM SYSTEM on 07-07-2023 Albumin BCP dye [Mass/Vol] 4.1 G/dL Invalid Interpretation Code 3.4 - 4.8 G/dL AO ADM SS Albumin/Globulin [Mass ratio] 1.4 {ratio} Invalid Interpretation Code 1.1 - 2.5 ratio AO ADM SS ALP [Catalytic activity/Vol] 65 U/L Invalid Interpretation Code 40 - 135 U/L AO ADM SS ALT With P-5'-P [Catalytic activity/Vol] 23 U/L Invalid Interpretation Code 16 - 63 U/L AO ADM SS AST With P-5'-P [Catalytic activity/Vol] 17 U/L Invalid Interpretation Code 10 - 40 U/L AO ADM SS Basophil, Absolute 0.1 103/mcL Invalid Interpretation Code 0.0 - 0.2 10^3/mcL AO Workflow SS Basophils/100 WBC (Bld) 0.6 % Invalid Interpretation Code 0.0 - 2.5 % AO Workflow SS Bilirubin [Mass/Vol] 0.7 mg/dL Invalid Interpretation Code 0.2 - 1.0 mg/dL AO ADM SS Comment on above: Interpretive Data: U se of this assay is not recommended for patients undergoing treatment with eltrombopag due to the potential for falsely elevated results. Calcium [Mass/Vol] 9.1 mg/dL Invalid Interpretation Code 8.4 - 10.2 mg/dL AO ADM SS Chloride [Moles/Vol] 101 mmol/L Invalid Interpretation Code 98 - 107 mmol/L AO ADM SS CO2 [Moles/Vol] 26 mmol/L Invalid Interpretation Code 23 - 31 mmol/L AO ADM SS Creatinine [Mass/Vol] 1.57 mg/dL Invalid Interpretation Code 0.70 - 1.30 mg/dL AO ADM SS Electrolyte Balance 13.0 mEq/L Invalid Interpretation Code 4.0 - 15.0 mEq/L AO ADM SS Eosinophil, Absolute 0.3 103/mcL Invalid Interpretation Code 0.0 - 0.4 10^3/mcL AO Workflow SS Eosinophils/100 WBC (Bld) 3.5 % Invalid Interpretation Code 0.0 - 7.0 % AO Workflow SS Erythrocyte distribution width (RBC) [Ratio] 14.2 % Invalid Interpretation Code 11.5 - 14.5 % AO Workflow SS Free T3 [Mass/Vol] 2.83 pg/mL Invalid Interpretation Code 2.30 - 4.00 pg/mL AO ADM SS Free T4 [Mass/Vol] 1.20 ng/dL Invalid Interpretation Code 0.76 - 1.46 ng/dL AO ADM SS GFR/1.73 sq M.predicted among blacks MDRD (S/P/Bld) [Vol rate/Area] 52 ml/min/1.73sqm Invalid Interpretation Code AO Chemistry S Comment on above: Interpretive Data: GFR Population mean for , Non- Americans Ages 20-29 = 116 mL/min/1.73 sq.m. Ages 30-39 = 107 mL/min/1.73 sq.m. Ages 40-49 = 99 mL/min/1.73 sq.m. Ages 50-59 = 93 mL/min/1.73 sq.m. Ages 60-69 = 85 mL/min/1.73 sq.m. Ages 70+ = 75 mL/min/1.73 sq.m. Chronic Kidney Disease: Less than 60 mL/min/1.73 square meters End Stage Renal Disease: Less than 15 mL/min/1.73 square meters GFR/1.73 sq M.predicted among non-blacks MDRD (S/P/Bld) [Vol rate/Area] 43 ml/min/1.73sqm Invalid Interpretation Code AO Chemistry S Comment on above: Interpretive Data: GFR Population mean for , Non- Americans Ages 20-29 = 116 mL/min/1.73 sq.m. Ages 30-39 = 107 mL/min/1.73 sq.m. Ages 40-49 = 99 mL/min/1.73 sq.m. Ages 50-59 = 93 mL/min/1.73 sq.m. Ages 60-69 = 85 mL/min/1.73 sq.m. Ages 70+ = 75 mL/min/1.73 sq.m. Chronic Kidney Disease: Less than 60 mL/min/1.73 square meters End Stage Renal Disease: Less than 15 mL/min/1.73 square meters Globulin 3.0 G/dL Invalid Interpretation Code AO ADM SS Glucose [Mass/Vol] 270 mg/dL Invalid Interpretation Code 83 - 110 mg/dL AO ADM SS Hematocrit (Bld) [Volume fraction] 40.6 % Invalid Interpretation Code 42.0 - 52.0 % AO Workflow SS Hemoglobin (Bld) [Mass/Vol] 13.7 G/dL Invalid Interpretation Code 14.0 - 18.0 G/dL AO Workflow SS Lymphocyte, Absolute 1.3 103/mcL Invalid Interpretation Code 0.8 - 3.9 10^3/mcL AO Workflow SS Lymphocytes/100 WBC (Bld) 14.2 % Invalid Interpretation Code 10.0 - 50.0 % AO Workflow SS MCH (RBC) [Entitic mass] 29.7 pg Invalid Interpretation Code 27.0 - 31.2 pg AO Workflow SS MCHC 33.8 G/dL Invalid Interpretation Code 31.8 - 35.4 G/dL AO Workflow SS MCV (RBC) [Entitic vol] 88.1 fL Invalid Interpretation Code 80.0 - 94.0 fL AO Workflow SS Monocyte, Absolute 0.9 103/mcL Invalid Interpretation Code 0.2 - 1.0 10^3/mcL AO Workflow SS Monocytes/100 WBC (Bld) 9.9 % Invalid Interpretation Code 1.7 - 13.0 % AO Workflow SS Neutrophil, Absolute 6.7 103/mcL Invalid Interpretation Code 2.9 - 6.2 10^3/mcL AO Workflow SS Neutrophils/100 WBC (Bld) 71.8 % Invalid Interpretation Code 37.0 - 80.0 % AO Workflow SS Platelet mean volume (Bld) [Entitic vol] 7.8 fL Invalid Interpretation Code 7.4 - 10.4 fL AO Workflow SS Platelets (Bld) [#/Vol] 203 103/mcL Invalid Interpretation Code 130 - 400 10^3/mcL AO Workflow SS Potassium [Moles/Vol] 5.1 mmol/L Invalid Interpretation Code 3.5 - 5.1 mmol/L AO ADM SS Protein [Mass/Vol] 7.1 G/dL Invalid Interpretation Code 6.4 - 8.2 G/dL AO ADM SS RBC (Bld) [#/Vol] 4.61 106/mcL Invalid Interpretation Code 4.04 - 6.13 10^6/mcL AO Workflow SS Sodium [Moles/Vol] 140 mmol/L Invalid Interpretation Code 136 - 145 mmol/L AO ADM SS TSH Qn 0.37 m[IU]/L Invalid Interpretation Code 0.36 - 3.74 mcIU/mL AO ADM SS Urea nitrogen [Mass/Vol] 37 mg/dL Invalid Interpretation Code 7 - 18 mg/dL AO ADM SS Urea nitrogen/Creatinine [Mass ratio] 24 ratio Invalid Interpretation Code ratio AO ADM SS WBC (Bld) [#/Vol] 9.3 103/mcL Invalid Interpretation Code 4.6 - 10.8 10^3/mcL AO Workflow SS TSHon 07-07-2023 TSH Qn 0.37 m[IU]/L Normal 0.36-3.74 [facility] ([place]) Comment on above: Performed By: #### F T4, VIDH, TSH, FT3 #### [facility] [address] [place], [place] [address] #### THYAB #### [address] [address] US THYROIDon 06-04-2023 US THYROID ORIGINAL EXAMINATION: ULTRASOUND OF THE THYROID WITH COLOR DOPPLER FLOW EVALUATION06/03/2023 10:08 am Ultrasound Thyroid COMPARISON: None HISTORY: ORDERING SYSTEM PROVIDED HISTORY: Reason for Exam: goitre FINDINGS: Size right thyroid lobe: 7.0 x 3.0 x 3.0 cm Size left thyroid lobe: 6.2 x 3.1 x 2.6 cm Size isthmus: 0.5 cm Texture: Heterogeneous Estimated total number of nodules greater than or equal to 1 cm: 1 Number of spongiform nodules >/= 2 cm not described below (TR1): 0 Number of mixed cystic and solid nodules >/= 1.5 cm not described below (TR2): 0 Nodule#: # 1: Maximum size: 1.0 cm . All dimensions: 0.8 x 1.0 x 1.0 cm Location: Right Lower Composition: mixed cystic and solid: 1 point Echogenicity: hypoechoic: 2 points Shape: wider than tall: 0 points Margins: smooth: 0 points Echogenic foci: none: 0 points ACR Total Points: 3; ACR TI-RADS risk category: TR3 - mildly suspicious nodule. ACR TI-RADS 2017 Category 3. ACR TIRADS Recommendation: No further follow-up. A few other left-sided subcentimeter nodules are below size criteria for continued TI-RADS follow-up. IMPRESSION: 1. Nodule 1: ACR TI-RADS 2017 Category 3. Recommend: No further follow-up. 2. Enlarged thyroid goiter. ACR TI-RADS 2017 Recommendations: TR1(0 points) : No FNA or follow up TR2 (2 points) : No FNA or follow up TR3 (3 points) : FNA if >/= 2.5 cm, follow up if 1.5 - 2.4 cm in 1, 3, and 5 years TR4 (4-6 points) : FNA if >/= 1.5 cm, follow up if 1.0 - 1.4 cm in 1, 2, 3, and 5 years TR5 (>/= 7 points) : FNA if >/= 1.0 cm, follow up if 0.5 - 0.9 cm every year for 5 years *ACR TI-RADS recommends that no more than two nodules with the highest ACR TI-RADS total point should be biopsied and no more than four nodules should be followed. Interpreted by: Tomi Pritchett MD Preliminary Report By: Tomi Pritchett MD Electronically signed By Tomi Pritchett MD Dictated Date: 06/04/2023 2:30:26 PM Prelim Date: 06/04/2023 2:34:55 PM Sign Date: 06/04/2023 2:34:55 PM Ordering Provider: HERMINIA Mondragon [facility] ([place]) Jose Martin 05-29-2023 Thyroid Stim. Imm-Glob. <0.10 Normal <0.55 A [facility] ([place]) Comment on above: Result Comment: Thyr oid Stimulating Immunoglobulin test is used as an aid in diagnosis of autoimmune hyperthyroidism especially in patients with Grave's orbitopathy and dermopathy. Low positive TSH receptor stimulating antibody levels may occasionally be found in patients with autoimmune hypothyroidism. Clinical correlation is required. Performed By: [place] [address] Shell Fisherman: Gerber Henderson III, M.D. CLIA#: [id number] Performed By: #### F T4, VIDH, TSH, FT3 #### [facility] [address] [place], [place] [address] #### THYAB #### [address] [address] TSI Qualitative Negative Normal Negative [facility]) Comment on above: Result Comment: Perf ormed By: [place] [address] Shell Fisherman: Mikhail Chamberlain III#: [id number] Performed By: #### F T4, VIDH, TSH, FT3 #### [address] [address] #### THYAB #### [address] [address] ESRon 05-28-2023 Erythrocyte Sed Rate 3 mm/hr Normal 0-20 [facility] ([place]) Comment on above: Performed By: #### F T4, VIDH, TSH, FT3 #### [place] [address] #### THYAB #### [address] [address] .Auto Diffon 05-14-2023 Basophil, Absolute 0.1 10 3/mcL Normal 0.0-0.2 [facility] ([place]) Comment on above: Performed By: #### F T4, VIDH, TSH, FT3 #### [place] [address] #### THYAB #### [address] [address] Basophils/100 WBC (Bld) 0.8 % Normal 0.0-2.5 A [facility] ([place]) Comment on above: Performed By: #### F T4, VIDH, TSH, FT3 #### [place] [address] #### THYAB #### [address] [address] Eosinophil, Absolute 0.4 10 3/mcL Normal 0.0-0.4 [facility] ([place]) Comment on above: Performed By: #### F T4, VIDH, TSH, FT3 #### [place] [id number] #### THYAB #### [address] [address] Eosinophils/100 WBC (Bld) 4.3 % Normal 0.0-7.0 [facility] ([place]) Comment on above: Performed By: #### F T4, VIDH, TSH, FT3 #### [place] [address] #### THYAB #### [address] [address] Lymphocyte, Absolute 1.5 10 3/mcL Normal 0.8-3.9 [facility] ([place]) Comment on above: Performed By: #### F T4, VIDH, TSH, FT3 #### [place] [address] #### THYAB #### [address] [address] Lymphocytes/100 WBC (Bld) 16.8 % Normal 10.0-50.0 [facility] ([place]) Comment on above: Performed By: #### F T4, VIDH, TSH, FT3 #### [place] [address] #### THYAB #### [address] [address] Monocyte, Absolute 1.1 10 3/mcL High 0.2-1.0 [facility] ([place]) Comment on above: Performed By: #### F T4, VIDH, TSH, FT3 #### [place] [address] #### THYAB #### [address] [address] Monocytes/100 WBC (Bld) 11.8 % Normal 1.7-13.0 A [facility] ([place]) Comment on above: Performed By: #### F T4, VIDH, TSH, FT3 #### [place] [address] #### THYAB #### [address] [address] Neutrophils/100 WBC (Bld) 66.3 % Normal 37.0-80.0 [facility] ([place]) Comment on above: Performed By: #### F T4, VIDH, TSH, FT3 #### [address] [address] #### THYAB #### [address] [address] .NEUABSon 05-14-2023 Neutrophil, Absolute 6.1 10 3/mcL Normal 2.9-6.2 [facility] ([place]) Comment on above: Performed By: #### F T4, VIDH, TSH, FT3 #### [place] [address] #### THYAB #### [address] [address] CBCon 05-14-2023 Erythrocyte distribution width (RBC) [Ratio] 14.5 % Normal 11.5-14.5 [facility] ([place]) Comment on above: Performed By: #### F T4, VIDH, TSH, FT3 #### [place] [address] #### THYAB #### [place] [address] Hematocrit (Bld) [Volume fraction] 40.3 % Low 42.0-52.0 [facility] ([place]) Comment on above: Performed By: #### F T4, VIDH, TSH, FT3 #### [place] [address] #### THYAB #### [place] [address] Hgb 13.4 G/dL Low 14.0-18.0 [facility] ([place]) Comment on above: Performed By: #### F T4, VIDH, TSH, FT3 #### [place] [address] #### THYAB #### [place] [address] MCH (RBC) [Entitic mass] 29.6 pg Normal 27.0-31.2 [facility] ([place]) Comment on above: Performed By: #### F T4, VIDH, TSH, FT3 #### [place] [address] #### THYAB #### [place] [address] MCHC 33.2 G/dL Normal 31.8-35.4 [facility] ([place]) Comment on above: Performed By: #### F T4, VIDH, TSH, FT3 #### [place] [address] #### THYAB #### [place] [address] MCV (RBC) [Entitic vol] 89.2 fL Normal 80.0-94.0 A [facility] ([place]) Comment on above: Performed By: #### F T4, VIDH, TSH, FT3 #### [place] [address] #### THYAB #### [place] [address] Platelet 196 10 3/mcL Normal 130-400 [facility] ([place]) Comment on above: Performed By: #### F T4, VIDH, TSH, FT3 #### [place] [address] #### THYAB #### [place] [address] Platelet mean volume (Bld) [Entitic vol] 8.0 fL Normal 7.4-10.4 [facility] ([place]) Comment on above: Performed By: #### F T4, VIDH, TSH, FT3 #### [place] [address] #### THYAB #### [place] [address] RBC 4.51 10 6/mcL Normal 4.04-6.13 [facility] ([place]) Comment on above: Performed By: #### F T4, VIDH, TSH, FT3 #### [place] [address] #### THYAB #### [place] [id number] WBC 9.2 10 3/mcL Normal 4.6-10.8 [facility] ([place]) Comment on above: Performed By: #### F T4, VIDH, TSH, FT3 #### [address] [address] #### THYAB #### [address] [address] ESRon 05-14-2023 Erythrocyte Sed Rate 2 mm/hr Normal 0-20 [facility] ([place]) Comment on above: Performed By: #### F T4, VIDH, TSH, FT3 #### [address] [address] #### THYAB #### [place] [address] FT3on 05-14-2023 Free T3 [Mass/Vol] 2.63 pg/mL Normal 2.30-4.00 [facility] ([place]) Comment on above: Performed By: #### F T4, VIDH, TSH, FT3 #### [address] [address] #### THYAB #### [place] [address] FT4on 05-14-2023 Free T4 [Mass/Vol] 1.21 ng/dL Normal 0.76-1.46 [facility] ([place]) Comment on above: Performed By: #### F T4, VIDH, TSH, FT3 #### [place] [address] #### THYAB #### [place] [address] LABORATORYOrdered By: SYSTEM SYSTEM on 05-14-2023 Basophil, Absolute 0.1 103/mcL Invalid Interpretation Code 0.0 - 0.2 10^3/mcL AO Workflow SS Basophils/100 WBC (Bld) 0.8 % Invalid Interpretation Code 0.0 - 2.5 % AO Workflow SS Eosinophil, Absolute 0.4 103/mcL Invalid Interpretation Code 0.0 - 0.4 10^3/mcL AO Workflow SS Eosinophils/100 WBC (Bld) 4.3 % Invalid Interpretation Code 0.0 - 7.0 % AO Workflow SS Erythrocyte distribution width (RBC) [Ratio] 14.5 % Invalid Interpretation Code 11.5 - 14.5 % AO Workflow SS Free T3 [Mass/Vol] 2.63 pg/mL Invalid Interpretation Code 2.30 - 4.00 pg/mL AO ADM SS Free T4 [Mass/Vol] 1.21 ng/dL Invalid Interpretation Code 0.76 - 1.46 ng/dL AO ADM SS Hematocrit (Bld) [Volume fraction] 40.3 % Invalid Interpretation Code 42.0 - 52.0 % AO Workflow SS Hemoglobin (Bld) [Mass/Vol] 13.4 G/dL Invalid Interpretation Code 14.0 - 18.0 G/dL AO Workflow SS Lymphocyte, Absolute 1.5 103/mcL Invalid Interpretation Code 0.8 - 3.9 10^3/mcL AO Workflow SS Lymphocytes/100 WBC (Bld) 16.8 % Invalid Interpretation Code 10.0 - 50.0 % AO Workflow SS MCH (RBC) [Entitic mass] 29.6 pg Invalid Interpretation Code 27.0 - 31.2 pg AO Workflow SS MCHC 33.2 G/dL Invalid Interpretation Code 31.8 - 35.4 G/dL AO Workflow SS MCV (RBC) [Entitic vol] 89.2 fL Invalid Interpretation Code 80.0 - 94.0 fL AO Workflow SS Monocyte, Absolute 1.1 103/mcL Invalid Interpretation Code 0.2 - 1.0 10^3/mcL AO Workflow SS Monocytes/100 WBC (Bld) 11.8 % Invalid Interpretation Code 1.7 - 13.0 % AO Workflow SS Neutrophil, Absolute 6.1 103/mcL Invalid Interpretation Code 2.9 - 6.2 10^3/mcL AO Workflow SS Neutrophils/100 WBC (Bld) 66.3 % Invalid Interpretation Code 37.0 - 80.0 % AO Workflow SS Platelet mean volume (Bld) [Entitic vol] 8.0 fL Invalid Interpretation Code 7.4 - 10.4 fL AO Workflow SS Platelets (Bld) [#/Vol] 196 103/mcL Invalid Interpretation Code 130 - 400 10^3/mcL AO Workflow SS RBC (Bld) [#/Vol] 4.51 106/mcL Invalid Interpretation Code 4.04 - 6.13 10^6/mcL AO Workflow SS TSH Qn 0.39 m[IU]/L Invalid Interpretation Code 0.36 - 3.74 mcIU/mL AO ADM SS WBC (Bld) [#/Vol] 9.2 103/mcL Invalid Interpretation Code 4.6 - 10.8 10^3/mcL AO Workflow SS LABORATORYOrdered By: Genamirian chanell Altman on 05-14-2023 ESR Photometric method (Bld) [Velocity] 2 mm/hr Invalid Interpretation Code 0 - 20 mm/hr AO Man Heme SS TSHon 05-14-2023 TSH Qn 0.39 m[IU]/L Normal 0.36-3.74 [facility] ([place]) Comment on above: Performed By: #### F T4, VIDH, TSH, FT3 #### [facility] [address] [place] [address] #### THYAB #### [facility] [address] [place] [address] No Panel InformationOrdered By: Randy Ragland on 04-24-2023 Prostate Specific Antigen Total < 0.01 ng/mL 0.0-4.0 [facility] Comment on above: This test was perfor med using the TPSA assay method for [employer] chemistry system. Values obtained with differentassay methods cannot be used interchangably.When changing PSA assays in the course of monitoring apatient, additional sequential testing should be carriedout to confirm baseline values. BD BONE DENSITY DEXA AXIAL S KELETONon 03-27-2023 BD BONE DENSITY DEXA AXIAL SKELETON ORIGINAL EXAMINATION: BONE DENSITOMETRY 03/27/2023 10:02 am TECHNIQUE: A bone density dual x-ray absorptiometry (DEXA) scan was performed of the lumbar spine and left hip. COMPARISON: Bone density DEXA 04/02/2021. HISTORY: ORDERING SYSTEM PROVIDED HISTORY: Reason for Exam: Osteoporosis screening FINDINGS: BMD (g/cm2) Lumbar Spine L1-L4: 0.967. T Score Lumbar Spine L1-L4: -1.1 BMD (g/cm2) Left Femoral Neck: 0.869. T Score Left Femoral Neck: -0.4 BMD (g/cm2) Left Hip: 0.925. T Score Left Hip: -0.7 BMD Change from previous Hip: 2.4% BMD Change from previous Lumbar spine: 1.0% FRAX: 10 year fracture risk assessment Major osteoporotic fracture: 5.0% Hip fracture: 1.0% IMPRESSION: Osteopenia by WHO criteria. *By the World Health Organization criteria: (Comparing with young normal sex matched population) - Normal: T-score at or above -1 SD (standard deviation) - Osteopenia: T-score between -1 and -2.5 SD - Osteoporosis: T-score at or below -2.5 SD I have personally reviewed the images of this examination and agree with the resident's findings and interpretation. Interpreted by: Darren Epperson DO Preliminary Report By: Sai Riddle Electronically signed By Darren Epperson DO Dictated Date: 03/27/2023 11:03:53 AM Prelim Date: 03/27/2023 11:54:01 AM Sign Date: 03/27/2023 11:54:01 AM Ordering Provider: BRE Mondragon [facility] ([place]) FT3on 03-20-2023 Free T3 [Mass/Vol] 2.73 pg/mL Normal 2.30-4.00 [facility] ([place]) Comment on above: Performed By: #### F T4, VIDH, TSH, FT3 #### [place] [address] #### THYAB #### [place] [address] FT4on 03-20-2023 Free T4 [Mass/Vol] 1.26 ng/dL Normal 0.76-1.46 [facility]) Comment on above: Performed By: #### F T4, VIDH, TSH, FT3 #### [place] [id number] #### THYAB #### [place] [address] LABORATORYOrdered By: Luz Wright on 03-20-2023 Albumin DL <= 20 mg/L (U) [Mass/Vol] 535 mcg/dL Invalid Interpretation Code AO ADM SS Albumin/Creatinine DL <= 20 mg/L (U) [Mass ratio] 14 mcg/mg Invalid Interpretation Code 0 - 30 mcg/mg AO ADM SS Creatinine (U) [Mass/Vol] 37.0 mg/dL Invalid Interpretation Code 39.0 - 259.0 mg/dL AO ADM SS MALBRon 03-20-2023 U Creatinine 37.0 mg/dL Low 39.0-259.0 [facility] ([place]) Comment on above: Performed By: #### F T4, VIDH, TSH, FT3 #### [place] [address] #### THYAB #### [address] [address] U Microalb 535 mcg/dL Normal [facility] ([place]) Comment on above: Performed By: #### F T4, VIDH, TSH, FT3 #### [place] [address] #### THYAB #### [address] [address] U Ratio Alb/Cre 14 mcg/mg Normal 0-30 [facility] ([place]) Comment on above: Performed By: #### F T4, VIDH, TSH, FT3 #### [place] [address] #### THYAB #### [address] [address] THYABon 03-20-2023 anti-Thyroid Peroxidase <28 Normal 0-60 A [facility] ([place]) Comment on above: Result Comment: No te - New Reference Range in effect 20 Performed By: #### F T4, VIDH, TSH, FT3 #### [place] [address] #### THYAB #### [address] [address] Thyroglobulin Ab Qn [IU]/mL Normal 15-60 [facility] ([place]) Comment on above: Result Comment: No te - New Reference Range in effect 20 Performed By: #### F T4, VIDH, TSH, FT3 #### [place] [address] #### THYAB #### [place] [address] TSHon 03-20-2023 TSH Qn 0.25 m[IU]/L Low 0.36-3.74 [facility] ([place]) Comment on above: Performed By: #### F T4, VIDH, TSH, FT3 #### [place] [address] #### THYAB #### [place] [address] VIDHon 03-20-2023 Vit. D 25-Hydroxy 113.4 ng/mL Normal [facility] ([place]) Comment on above: Result Comment: Inte rpretive Values Based on Total 25(OH) Vitamin D: Deficient <20 ng/mL Insufficient 20 - <30 ng/mL Sufficient 30-100 ng/mL Performed By: #### F T4, VIDH, TSH, FT3 #### [place] [address] #### THYAB #### [place] [address] LABORATORYOrdered By: SYSTEM SYSTEM on 10-13-2022 Albumin BCP dye [Mass/Vol] 4.1 G/dL Invalid Interpretation Code 3.4 - 4.8 G/dL AO ADM SS Albumin/Globulin [Mass ratio] 1.5 {ratio} Invalid Interpretation Code 1.1 - 2.5 ratio AO ADM SS ALP [Catalytic activity/Vol] 71 U/L Invalid Interpretation Code 40 - 135 U/L AO ADM SS ALT With P-5'-P [Catalytic activity/Vol] 25 U/L Invalid Interpretation Code 16 - 63 U/L AO ADM SS AST With P-5'-P [Catalytic activity/Vol] 24 U/L Invalid Interpretation Code 10 - 40 U/L AO ADM SS Bilirubin [Mass/Vol] 0.7 mg/dL Invalid Interpretation Code 0.2 - 1.0 mg/dL AO ADM SS Calcium [Mass/Vol] 9.8 mg/dL Invalid Interpretation Code 8.4 - 10.2 mg/dL AO ADM SS Chloride [Moles/Vol] 104 mmol/L Invalid Interpretation Code 98 - 107 mmol/L AO ADM SS CO2 [Moles/Vol] 27 mmol/L Invalid Interpretation Code 23 - 31 mmol/L AO ADM SS Creatinine [Mass/Vol] 1.16 mg/dL Invalid Interpretation Code 0.70 - 1.30 mg/dL AO ADM SS Electrolyte Balance 11.0 mEq/L Invalid Interpretation Code 4.0 - 15.0 mEq/L AO ADM SS GFR 74 ml/min/1.73sqm Invalid Interpretation Code AO Chemistry S GFR Non- 61 ml/min/1.73sqm Invalid Interpretation Code AO Chemistry S Globulin 2.7 G/dL Invalid Interpretation Code AO ADM SS Glucose [Mass/Vol] 140 mg/dL Invalid Interpretation Code 83 - 110 mg/dL AO ADM SS Potassium [Moles/Vol] 4.3 mmol/L Invalid Interpretation Code 3.5 - 5.1 mmol/L AO ADM SS Protein [Mass/Vol] 6.8 G/dL Invalid Interpretation Code 6.4 - 8.2 G/dL AO ADM SS Sodium [Moles/Vol] 142 mmol/L Invalid Interpretation Code 136 - 145 mmol/L AO ADM SS TSH Qn 0.58 m[IU]/L Invalid Interpretation Code 0.36 - 3.74 mcIU/mL AO ADM SS Urea nitrogen [Mass/Vol] 34 mg/dL Invalid Interpretation Code 7 - 18 mg/dL AO ADM SS Urea nitrogen/Creatinine [Mass ratio] 29 ratio Invalid Interpretation Code 7 - 27 ratio AO ADM SS Uric Acid Lvl 3.3 mg/dL Invalid Interpretation Code 3.5 - 7.2 mg/dL AO ADM SS Vit. D 25-Hydroxy 112.0 ng/mL Invalid Interpretation Code AO ADM SS LABORATORYOrdered By: Sathya Mackey on 10-13-2022 Basophil, Absolute 0.1 103/mcL Invalid Interpretation Code 0.0 - 0.2 10^3/mcL AO Workflow SS Basophils/100 WBC (Bld) 0.8 % Invalid Interpretation Code 0.0 - 2.5 % AO Workflow SS Eosinophil, Absolute 0.5 103/mcL Invalid Interpretation Code 0.0 - 0.4 10^3/mcL AO Workflow SS Eosinophils/100 WBC (Bld) 5.2 % Invalid Interpretation Code 0.0 - 7.0 % AO Workflow SS Erythrocyte distribution width (RBC) [Ratio] 13.3 % Invalid Interpretation Code 11.5 - 14.5 % AO Workflow SS Hematocrit (Bld) [Volume fraction] 41.8 % Invalid Interpretation Code 42.0 - 52.0 % AO Workflow SS Hemoglobin (Bld) [Mass/Vol] 14.3 G/dL Invalid Interpretation Code 14.0 - 18.0 G/dL AO Workflow SS Lymphocyte, Absolute 2.0 103/mcL Invalid Interpretation Code 0.8 - 3.9 10^3/mcL AO Workflow SS Lymphocytes/100 WBC (Bld) 22.1 % Invalid Interpretation Code 10.0 - 50.0 % AO Workflow SS MCH (RBC) [Entitic mass] 30.9 pg Invalid Interpretation Code 27.0 - 31.2 pg AO Workflow SS MCHC 34.2 G/dL Invalid Interpretation Code 31.8 - 35.4 G/dL AO Workflow SS MCV (RBC) [Entitic vol] 90.2 fL Invalid Interpretation Code 80.0 - 94.0 fL AO Workflow SS Monocyte, Absolute 1.0 103/mcL Invalid Interpretation Code 0.2 - 1.0 10^3/mcL AO Workflow SS Monocytes/100 WBC (Bld) 11.0 % Invalid Interpretation Code 1.7 - 13.0 % AO Workflow SS Neutrophil, Absolute 5.4 103/mcL Invalid Interpretation Code 2.9 - 6.2 10^3/mcL AO Workflow SS Neutrophils/100 WBC (Bld) 60.9 % Invalid Interpretation Code 37.0 - 80.0 % AO Workflow SS Platelet mean volume (Bld) [Entitic vol] 8.6 fL Invalid Interpretation Code 7.4 - 10.4 fL AO Workflow SS Platelets (Bld) [#/Vol] 208 103/mcL Invalid Interpretation Code 130 - 400 10^3/mcL AO Workflow SS RBC (Bld) [#/Vol] 4.63 106/mcL Invalid Interpretation Code 4.04 - 6.13 10^6/mcL AO Workflow SS WBC (Bld) [#/Vol] 8.9 103/mcL Invalid Interpretation Code 4.6 - 10.8 10^3/mcL AO Workflow SS LABORATORYOrdered By: Estefany Hensley on 10-13-2022 Cholesterol [Mass/Vol] 146 mg/dL Invalid Interpretation Code 0 - 200 mg/dL AO ADM SS Cholesterol in HDL [Mass/Vol] 49 mg/dL Invalid Interpretation Code 40 - 60 mg/dL AO ADM SS Cholesterol in LDL [Mass/Vol] 69 mg/dL Invalid Interpretation Code 0 - 130 mg/dL AO ADM SS Triglyceride [Mass/Vol] 142 mg/dL Invalid Interpretation Code 0 - 150 mg/dL AO ADM SS No Panel Informationon 10-13 Prostate Specific Antigen Total < 0.01 ng/mL 0.0-4.0 [facility] Work Phone: Comment on above: This test was perfor med using the TPSA assay method for the[employer] chemistry system. Values obtained with differentassay methods cannot be used interchangably.When changing PSA assays in the course of monitoring apatient, additional sequential testing should be carriedout to confirm baseline values. No Panel Informationon 03-26 Prostate Specific Antigen Total < 0.01 ng/mL 0.0-4.0 [facility] Work Phone: Comment on above: This test was perfor med using the TPSA assay method for [email or web address] chemistry system. Values obtained with differentassay methods cannot be used interchangably.When changing PSA assays in the course of monitoring apatient, additional sequential testing should be carriedout to confirm baseline values. LABORATORYOrdered By: Luz Wright on 02-26-2022 Albumin BCP dye [Mass/Vol] 4.2 G/dL Invalid Interpretation Code 3.4 - 4.8 G/dL AO ADM SS Albumin/Globulin [Mass ratio] 1.4 {ratio} Invalid Interpretation Code 1.1 - 2.5 ratio AO ADM SS ALP [Catalytic activity/Vol] 76 U/L Invalid Interpretation Code 40 - 135 U/L AO ADM SS ALT With P-5'-P [Catalytic activity/Vol] 28 U/L Invalid Interpretation Code 16 - 63 U/L AO ADM SS AST With P-5'-P [Catalytic activity/Vol] 25 U/L Invalid Interpretation Code 10 - 40 U/L AO ADM SS Bilirubin [Mass/Vol] 0.8 mg/dL Invalid Interpretation Code 0.2 - 1.0 mg/dL AO ADM SS Calcium [Mass/Vol] 9.6 mg/dL Invalid Interpretation Code 8.4 - 10.2 mg/dL AO ADM SS Chloride [Moles/Vol] 103 mmol/L Invalid Interpretation Code 98 - 107 mmol/L AO ADM SS Cholesterol [Mass/Vol] 140 mg/dL Invalid Interpretation Code 0 - 200 mg/dL AO ADM SS Cholesterol in HDL [Mass/Vol] 48 mg/dL Invalid Interpretation Code 40 - 60 mg/dL AO ADM SS Cholesterol in LDL [Mass/Vol] 65 mg/dL Invalid Interpretation Code 0 - 130 mg/dL AO ADM SS CO2 [Moles/Vol] 26 mmol/L Invalid Interpretation Code 23 - 31 mmol/L AO ADM SS Creatinine [Mass/Vol] 1.05 mg/dL Invalid Interpretation Code 0.70 - 1.30 mg/dL AO ADM SS Electrolyte Balance 11.0 mEq/L Invalid Interpretation Code 4.0 - 15.0 mEq/L AO ADM SS Globulin 2.9 G/dL Invalid Interpretation Code AO ADM SS Glucose [Mass/Vol] 137 mg/dL Invalid Interpretation Code 83 - 110 mg/dL AO ADM SS Potassium [Moles/Vol] 4.4 mmol/L Invalid Interpretation Code 3.5 - 5.1 mmol/L AO ADM SS Protein [Mass/Vol] 7.1 G/dL Invalid Interpretation Code 6.4 - 8.2 G/dL AO ADM SS Sodium [Moles/Vol] 140 mmol/L Invalid Interpretation Code 136 - 145 mmol/L AO ADM SS Triglyceride [Mass/Vol] 136 mg/dL Invalid Interpretation Code 0 - 150 mg/dL AO ADM SS TSH Qn 0.51 m[IU]/L Invalid Interpretation Code 0.36 - 3.74 mcIU/mL AO ADM SS Urea nitrogen [Mass/Vol] 30 mg/dL Invalid Interpretation Code 7 - 18 mg/dL AO ADM SS Urea nitrogen/Creatinine [Mass ratio] 29 ratio Invalid Interpretation Code 7 - 27 ratio AO ADM SS Uric Acid Lvl 2.6 mg/dL Invalid Interpretation Code 3.5 - 7.2 mg/dL AO ADM SS Vit. D 25-Hydroxy 115.4 ng/mL Invalid Interpretation Code AO ADM SS LABORATORYOrdered By: Sathya Mackey on 02-26-2022 Basophil, Absolute 0.10 103/mcL Invalid Interpretation Code 0.00 - 0.19 10^3/mcL AO Auto Heme SS Basophils/100 WBC (Bld) 0.8 % Invalid Interpretation Code 0.0 - 2.5 % AO Auto Heme SS Eosinophil, Absolute 0.50 103/mcL Invalid Interpretation Code 0.00 - 0.40 10^3/mcL AO Auto Heme SS Eosinophils/100 WBC (Bld) 4.9 % Invalid Interpretation Code 0.0 - 7.0 % AO Auto Heme SS Erythrocyte distribution width (RBC) [Ratio] 13.3 % Invalid Interpretation Code 11.5 - 14.5 % AO Auto Heme SS Hematocrit (Bld) [Volume fraction] 41.3 % Invalid Interpretation Code 42.0 - 52.0 % AO Auto Heme SS Hemoglobin (Bld) [Mass/Vol] 14.4 G/dL Invalid Interpretation Code 14.0 - 18.0 G/dL AO Auto Heme SS Lymphocyte, Absolute 1.00 103/mcL Invalid Interpretation Code 0.77 - 3.85 10^3/mcL AO Auto Heme SS Lymphocytes/100 WBC (Bld) 10.1 % Invalid Interpretation Code 10.0 - 50.0 % AO Auto Heme SS MCH (RBC) [Entitic mass] 31.6 pg Invalid Interpretation Code 27.0 - 31.2 pg AO Auto Heme SS MCHC (RBC) [Mass/Vol] 34.9 G/dL Invalid Interpretation Code 31.8 - 35.4 G/dL AO Auto Heme SS MCV (RBC) [Entitic vol] 90.6 fL Invalid Interpretation Code 80.0 - 94.0 fL AO Auto Heme SS Monocyte, Absolute 1.00 103/mcL Invalid Interpretation Code 0.15 - 1.00 10^3/mcL AO Auto Heme SS Monocytes/100 WBC (Bld) 10.9 % Invalid Interpretation Code 1.7 - 13.0 % AO Auto Heme SS Neutrophil, Absolute 6.90 103/mcL Invalid Interpretation Code 2.85 - 6.16 10^3/mcL AO Auto Heme SS Neutrophils/100 WBC (Bld) 73.3 % Invalid Interpretation Code 37.0 - 80.0 % AO Auto Heme SS Platelet mean volume (Bld) [Entitic vol] 8.3 fL Invalid Interpretation Code 7.4 - 10.4 fL AO Auto Heme SS Platelets (Bld) [#/Vol] 199 103/mcL Invalid Interpretation Code 130 - 400 10^3/mcL AO Auto Heme SS RBC (Bld) [#/Vol] 4.55 106/mcL Invalid Interpretation Code 4.04 - 6.13 10^6/mcL AO Auto Heme SS WBC (Bld) [#/Vol] 9.40 103/mcL Invalid Interpretation Code 4.60 - 10.80 10^3/mcL AO Auto Heme SS LABORATORYOrdered By: SYSTEM SYSTEM on 02-26-2022 GFR 83 ml/min/1.73sqm Invalid Interpretation Code AO Chemistry S GFR Non- 69 ml/min/1.73sqm Invalid Interpretation Code AO Chemistry S LABORATORYOrdered By: Sathya Mackey on 10-03-2021 Albumin BCP dye [Mass/Vol] 4.1 G/dL Invalid Interpretation Code 3.4 - 4.8 G/dL AO ADM SS Albumin/Globulin [Mass ratio] 1.4 {ratio} Invalid Interpretation Code 1.1 - 2.5 ratio AO ADM SS ALP [Catalytic activity/Vol] 75 U/L Invalid Interpretation Code 40 - 135 U/L AO ADM SS ALT With P-5'-P [Catalytic activity/Vol] 30 U/L Invalid Interpretation Code 16 - 63 U/L AO ADM SS AST With P-5'-P [Catalytic activity/Vol] 21 U/L Invalid Interpretation Code 10 - 40 U/L AO ADM SS Bilirubin [Mass/Vol] 0.6 mg/dL Invalid Interpretation Code 0.2 - 1.0 mg/dL AO ADM SS Calcium [Mass/Vol] 9.4 mg/dL Invalid Interpretation Code 8.4 - 10.2 mg/dL AO ADM SS Chloride [Moles/Vol] 103 mmol/L Invalid Interpretation Code 98 - 107 mmol/L AO ADM SS Cholesterol [Mass/Vol] 143 mg/dL Invalid Interpretation Code 0 - 200 mg/dL AO ADM SS Cholesterol in HDL [Mass/Vol] 50 mg/dL Invalid Interpretation Code 40 - 60 mg/dL AO ADM SS Cholesterol in LDL [Mass/Vol] 71 mg/dL Invalid Interpretation Code 0 - 130 mg/dL AO ADM SS CO2 [Moles/Vol] 28 mmol/L Invalid Interpretation Code 23 - 31 mmol/L AO ADM SS Creatinine [Mass/Vol] 1.08 mg/dL Invalid Interpretation Code 0.70 - 1.30 mg/dL AO ADM SS Electrolyte Balance 12.0 mEq/L Invalid Interpretation Code AO ADM SS Globulin 2.9 G/dL Invalid Interpretation Code AO ADM SS Glucose [Mass/Vol] 163 mg/dL Invalid Interpretation Code 83 - 110 mg/dL AO ADM SS Potassium [Moles/Vol] 4.1 mmol/L Invalid Interpretation Code 3.5 - 5.1 mmol/L AO ADM SS Protein [Mass/Vol] 7.0 G/dL Invalid Interpretation Code 6.4 - 8.2 G/dL AO ADM SS Sodium [Moles/Vol] 143 mmol/L Invalid Interpretation Code 136 - 145 mmol/L AO ADM SS Triglyceride [Mass/Vol] 109 mg/dL Invalid Interpretation Code 0 - 150 mg/dL AO ADM SS TSH Qn 0.60 m[IU]/L Invalid Interpretation Code 0.36 - 3.74 mcIU/mL AO ADM SS Urea nitrogen [Mass/Vol] 30 mg/dL Invalid Interpretation Code 7 - 18 mg/dL AO ADM SS Urea nitrogen/Creatinine [Mass ratio] 28 ratio Invalid Interpretation Code 7 - 27 ratio AO ADM SS Uric Acid Lvl 3.3 mg/dL Invalid Interpretation Code 3.5 - 7.2 mg/dL AO ADM SS Vit. D 25-Hydroxy 113.2 ng/mL Invalid Interpretation Code AO ADM SS LABORATORYOrdered By: Ana Rivera on 10-03-2021 Basophil, Absolute 0.10 103/mcL Invalid Interpretation Code 0.00 - 0.19 10^3/mcL AO Auto Heme SS Basophils/100 WBC (Bld) 0.7 % Invalid Interpretation Code 0.0 - 2.5 % AO Auto Heme SS Eosinophil, Absolute 0.60 103/mcL Invalid Interpretation Code 0.00 - 0.40 10^3/mcL AO Auto Heme SS Eosinophils/100 WBC (Bld) 6.9 % Invalid Interpretation Code 0.0 - 7.0 % AO Auto Heme SS Erythrocyte distribution width (RBC) [Ratio] 13.8 % Invalid Interpretation Code 11.5 - 14.5 % AO Auto Heme SS Hematocrit (Bld) [Volume fraction] 43.0 % Invalid Interpretation Code 42.0 - 52.0 % AO Auto Heme SS Hemoglobin (Bld) [Mass/Vol] 14.5 G/dL Invalid Interpretation Code 14.0 - 18.0 G/dL AO Auto Heme SS Lymphocyte, Absolute 1.90 103/mcL Invalid Interpretation Code 0.77 - 3.85 10^3/mcL AO Auto Heme SS Lymphocytes/100 WBC (Bld) 20.5 % Invalid Interpretation Code 10.0 - 50.0 % AO Auto Heme SS MCH (RBC) [Entitic mass] 30.6 pg Invalid Interpretation Code 27.0 - 31.2 pg AO Auto Heme SS MCHC (RBC) [Mass/Vol] 33.8 G/dL Invalid Interpretation Code 31.8 - 35.4 G/dL AO Auto Heme SS MCV (RBC) [Entitic vol] 90.6 fL Invalid Interpretation Code 80.0 - 94.0 fL AO Auto Heme SS Monocyte, Absolute 1.00 103/mcL Invalid Interpretation Code 0.15 - 1.00 10^3/mcL AO Auto Heme SS Monocytes/100 WBC (Bld) 10.7 % Invalid Interpretation Code 1.7 - 13.0 % AO Auto Heme SS Neutrophil, Absolute 5.70 103/mcL Invalid Interpretation Code 2.85 - 6.16 10^3/mcL AO Auto Heme SS Neutrophils/100 WBC (Bld) 61.2 % Invalid Interpretation Code 37.0 - 80.0 % AO Auto Heme SS Platelet mean volume (Bld) [Entitic vol] 8.3 fL Invalid Interpretation Code 7.4 - 10.4 fL AO Auto Heme SS Platelets (Bld) [#/Vol] 221 103/mcL Invalid Interpretation Code 130 - 400 10^3/mcL AO Auto Heme SS RBC (Bld) [#/Vol] 4.74 106/mcL Invalid Interpretation Code 4.04 - 6.13 10^6/mcL AO Auto Heme SS WBC (Bld) [#/Vol] 9.40 103/mcL Invalid Interpretation Code 4.60 - 10.80 10^3/mcL AO Auto Heme SS LABORATORYOrdered By: SYSTEM SYSTEM on 10-03-2021 GFR 81 ml/min/1.73sqm Invalid Interpretation Code AO Chemistry S GFR Non- 67 ml/min/1.73sqm Invalid Interpretation Code AO Chemistry S Vital Signs Date Time Vital Sign Value Performing Clinician Facility 06-27-2025 13:16-0400 Body height 180.[address] Bre Flores DO Work Phone: [facility] 06-27-2025 13:16-0400 Body mass index (BMI) [Ratio] 21.2 kg/m2 Dr. Bre Flores DO Work Phone: [facility] 06-27-2025 13:16-0400 Body temperature 98 [degF] Dr. Bre Flores DO Work Phone: [facility] 06-27-2025 13:16-0400 Body weight 68.[address] Bre Flores DO Work Phone: [facility] 06-27-2025 13:16-0400 Diastolic blood pressure 79 mm[Hg] Dr. Bre Flores DO Work Phone: [facility] 06-27-2025 13:16-0400 Heart rate 78 /min Dr. Bre Flores DO Work Phone: [facility] 06-27-2025 13:16-0400 Respiratory rate 18 /min Dr. Bre Flores DO Work Phone: [facility] 06-27-2025 13:16-0400 SaO2% (BldA) [Mass fraction] 97 % Dr. Bre Flores DO Work Phone: [facility] 06-27-2025 13:16-0400 Systolic blood pressure 147 mm[Hg] Dr. Bre Flores DO Work Phone: [facility] 06-05-2025 13:00-0400 Body height 177.8 cm Lakesha Samson JIVE DEVELOPER - SOAKERS SUPERVISOR Work Phone: [facility] 06-05-2025 13:00-0400 Body mass index (BMI) [Ratio] 21.38 kg/m2 Lakesha Samson JIVE DEVELOPER - SOAKERS SUPERVISOR Work Phone: [facility] 06-05-2025 13:00-0400 Body weight 67.59 kg Lakesha Samson JIVE DEVELOPER - SOAKERS SUPERVISOR Work Phone: [facility] 06-05-2025 13:00-0400 Diastolic blood pressure 71 mm[Hg] Lakesha Samson JIVE DEVELOPER - SOAKERS SUPERVISOR Work Phone: [facility] 06-05-2025 13:00-0400 Heart rate 83 /min Lakesha Samson JIVE DEVELOPER - SOAKERS SUPERVISOR Work Phone: [facility] 06-05-2025 13:00-0400 Systolic blood pressure 115 mm[Hg] Lakesha Samson JIVE DEVELOPER - SOAKERS SUPERVISOR Work Phone: [facility] 05-12-2025 12:23-0400 Body temperature 97.9 [degF] Chuy Villatoro MD Work Phone: [email or web address] 05-12-2025 12:23-0400 Diastolic blood pressure 68 mm[Hg] Chuy Villatoro MD Work Phone: [email or web address] 05-12-2025 12:23-0400 Heart rate 83 /min Chuy Villatoro MD Work Phone: [email or web address] 05-12-2025 12:23-0400 Respiratory rate 20 /min Chuy Villatoro MD Work Phone: [email or web address] 05-12-2025 12:23-0400 SaO2% (BldA) [Mass fraction] 95 % Chuy Villatoro MD Work Phone: [email or web address] 05-12-2025 12:23-0400 Systolic blood pressure 119 mm[Hg] Chuy Villatoro MD Work Phone: [email or web address] 05-11-2025 20:49-0400 Body height 177.8 cm Chuy Villatoro MD Work Phone: [email or web address] 05-11-2025 20:49-0400 Body mass index (BMI) [Ratio] 22.7 kg/m2 Chuy Villatoro MD Work Phone: [email or web address] 05-11-2025 20:49-0400 Body weight 71.76 kg Chuy Villatoro MD Work Phone: [email or web address] 05-01-2025 09:23-0400 Body temperature 97.59 [degF] Radha Cordova DO Work Phone: [email or web address] 05-01-2025 09:23-0400 Diastolic blood pressure 77 mm[Hg] Radha Cordova DO Work Phone: [email or web address] 05-01-2025 09:23-0400 Heart rate 95 /min Radha Cordova DO Work Phone: [email or web address] 05-01-2025 09:23-0400 Respiratory rate 20 /min Radha Cordova DO Work Phone: [email or web address] 05-01-2025 09:23-0400 SaO2% (BldA) [Mass fraction] 93 % Radha Cordova DO Work Phone: [email or web address] 05-01-2025 09:23-0400 Systolic blood pressure 141 mm[Hg] Radha Cordova DO Work Phone: [email or web address] 05-01-2025 06:45-0400 Body mass index (BMI) [Ratio] 21.69 kg/m2 Radha Cordova DO Work Phone: [email or web address] 05-01-2025 06:45-0400 Body weight 68.58 kg Radha Cordova DO Work Phone: [email or web address] 04-24-2025 13:44-0400 Body height 177.8 cm Radha Cordova DO Work Phone: [email or web address] Encounters Encounter Date Encounter Type Care Provider Facility Start: 07-31-[address] [facility] ity:[facility] Start: 06-27-2025 End: 06-27-[address] Jacob Mcallister MD -[facility] Work Phone: Start: 06-27-2025 End: 06-27-[address] 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 ) Start: 06-05-2025 End: 06-05-2025 Office outpatient visit 40 minutes Lakesha Samson JIVE DEVELOPER - SOAKERS SUPERVISOR Work Phone: [facility] [employer] [facility] Comment on above: Ischemic stroke (HCC ) (Primary Dx); OSIEL (obstructive sleep apnea) Start: 06-05-2025 End: 06-05-2025 ambulatory LAKESHAANTOLIN SAMSON [facility] Start: 05-31-2025 End: 05-31-2025 ambulatory BRE FLORES Facility:[facility] Start: 05-31-2025 End: 05-31-[address] BRE FLORES DO [facility] Start: 05-11-2025 End: 05-12-2025 ambulatory BRE FLORES [facility] Start: 05-11-2025 End: 05-12-2025 Evaluation and management of inpatient Chuy Villatoro MD Work Phone: [facility] PCU 4W Comment on above: NSTEMI (non-ST eleva isma myocardial infarction) (HCC) (Primary Dx) Start: 05-02-2025 End: 05-15-2025 Telephone encounter Bertha Iniguez APRN - SOAKERS SUPERVISOR Work Phone: [facility] [place] Start: 04-22-2025 End: 04-22-2025 ambulatory UNKNOWN PROVIDER Facility:[facility] Start: 04-21-2025 End: 05-01-2025 Evaluation and management of inpatient Radha Cordova DO Work Phone: [facility] Trauma Neuro Progressive Care Unit PCU 3W Start: 04-21-2025 End: 04-21-2025 Emergency department patient visit DANIELITOHILDA СВЕТЛАНА DO [facility] Start: 03-31-2025 End: 03-31-[address] Bre Flores DO Work Phone: [facility] Work Phone: Start: 03-31-2025 End: 03-31-[address] Randy Ragland MD -Laboratory Work Phone: Start: 03-31-2025 End: 03-31-2025 ambulatory Bre Flores Facility:[facility] Start: 03-14-2025 End: 03-14-2025 ambulatory BRE FLORES [facility] Start: 03-14-2025 End: 03-14-[address] BRE FLORES DO [facility] Start: 02-28-2025 End: 02-28-2025 ambulatory BRE FLORES [facility] Start: 02-28-2025 End: 02-28-[address] BRE FLORES DO [facility] Start: 10-07-2024 End: 10-07-2024 ambulatory BRE FLORES Facility[facility] Start: 10-07-2024 End: 10-07-[address] BRE FLORES DO [facility] Start: 10-06-2024 End: 10-06-2024 ambulatory Bre Flores Facility:[facility] Start: 07-12-2024 End: 07-12-2024 ambulatory Bre Flores Facility:[facility] Start: 03-16-2024 End: 03-17-[address] BRE FLORES DO Facility:[facility] Start: 03-16-2024 End: 03-16-[address] LEXII DUMONT MD [facility] Start: 02-29-2024 End: 03-01-[address] BRE FLORES DO Facility:[facility] Start: 02-29-2024 End: 02-29-2024 Patient encounter procedure HERMINIA IBARRA MD [facility] Start: 09-29-2023 End: 09-29-2023 ambulatory [facility] Work Phone: Start: 09-29-2023 End: 09-29-2023 Patient encounter procedure [facility] Work Phone: Start: 09-28-2023 End: 09-29-2023 ambulatory HERMINIA IBARRA MD Facility:[facility] Start: 09-28-2023 End: 09-28-[address] BRE FLORES DO [facility] Start: 07-07-2023 End: 07-08-2023 ambulatory HERMINIA IBARRA MD Facility:[facility] Start: 07-07-2023 End: 07-07-2023 Patient encounter procedure HERMINIA IBARRA MD [facility] Start: 06-03-2023 End: 06-04-2023 ambulatory HERMINIA IBARRA MD Facility:[facility] Start: 06-03-2023 End: 06-03-2023 Patient encounter procedure HERMINIA IBARRA MD [facility] Start: 05-28-2023 End: 05-29-2023 ambulatory HERMINIA IBARRA MD Facility:[facility] Start: 05-14-2023 End: 05-15-2023 ambulatory HERMINIA IBARRA MD Facility:[facility] Start: 05-14-2023 End: 05-14-2023 Patient encounter procedure HERMINIA IBARRA MD [facility] Start: 04-24-2023 End: 04-24-2023 ambulatory [facility] Work Phone: Start: 04-24-2023 End: 04-24-2023 Patient encounter procedure [facility] Work Phone: Start: 03-27-2023 End: 03-28-[address] BRE FLORES DO Facility:[facility] Start: 03-27-2023 End: 03-27-[address] LEXII DUMONT MD [facility] Start: 03-20-2023 End: 03-21-[address] BRE FLORES DO Facility:[facility] Start: 03-20-2023 End: 03-25-[address] BRE FLORES DO Facility:[facility] Start: 03-20-2023 End: 03-24-[address] BRE FLORES DO [facility] Start: 10-13-2022 End: 10-13-2022 ambulatory [facility] Work Phone: Start: 10-13-2022 End: 10-13-2022 Patient encounter procedure [facility] Start: 10-13-2022 End: 10-13-[address] BRE FLORES DO [facility] Start: 03-26-2022 End: 03-26-2022 Patient encounter procedure [facility] Start: 02-26-2022 End: 02-26-[address] BRE FLORES DO [facility] Start: 10-03-2021 End: 10-03-[address] BRE FLORES DO [facility] Procedures Date Procedure Procedure Detail Performing Clinician Start: 06-05-2025 Follow-up visit BRE POOLE Start: 05-12-2025 Glucose quantitative blood xcpt reagent strip Brianna Barriga MD Work Phone: Start: 05-12-2025 Assay of troponin quantitative Rick Chow MD Work Phone: Start: 05-12-2025 Ecg routine ecg w/le ast 12 lds trcg only w/o i&r Rick Chow MD Work Phone: Start: 05-12-2025 Assay of troponin quantitative Rick Chow MD Work Phone: Start: 05-12-2025 Basic metabolic pane l calcium total Rick Chow MD Work Phone: Start: 05-11-2025 HIGH SENSITIVITY TRO PONIN, SERIAL, THIRD TEST Chuy Villatoro MD Work Phone: Start: 05-11-2025 HIGH SENSITIVITY TRO PONIN, SERIAL, SECOND TEST Chuy Villatoro MD Work Phone: Start: 05-11-2025 Ecg routine ecg w/le ast 12 lds trcg only w/o i&r Chuy Villatoro MD Work Phone: Start: 05-11-2025 Glucose quantitative blood xcpt reagent strip Chuy Villatoro MD Work Phone: Start: 05-11-2025 HIGH SENSITIVITY TRO PONIN, SERIAL BASELINE Chuy Villatoro MD Work Phone: Start: 05-11-2025 Radiologic exam swal low function contrast study Chuy Villatoro MD Work Phone: Start: 05-11-2025 HIGH SENSITIVITY TRO PONIN, SERIAL, SECOND TEST Vignesh Yates MD Work Phone: Start: 05-11-2025 Radiologic exam ches t 2 views Chuy Villatoro MD Work Phone: Start: 05-11-2025 End: 05-11-2025 Ct angiography head w/contrast/noncontrast Vignesh Yates MD Work Phone: Start: 05-11-2025 Ecg routine ecg w/le ast 12 lds trcg only w/o i&r Vignesh Yates MD Work Phone: Start: 05-11-2025 End: 05-11-2025 Blood count complete automated Vignesh Yates MD Work Phone: Start: 05-01-2025 Glucose quantitative blood xcpt reagent strip Rick Chow MD Work Phone: Start: 05-01-2025 Glucose quantitative blood xcpt reagent strip Rick Chow MD Work Phone: Start: 05-01-2025 Basic metabolic pane l calcium total Se Sherman DO Work Phone: Start: 04-30-2025 Glucose quantitative blood xcpt reagent strip Rick Chow MD Work Phone: Start: 04-30-2025 Glucose quantitative blood xcpt reagent strip Rick Chow MD Work Phone: Start: 04-30-2025 Glucose quantitative blood xcpt reagent strip Rick Chow MD Work Phone: Start: 04-30-2025 Blood occult peroxid ase actv qual feces 1-3 spec Evelyn Rodriguez MD Work Phone: Start: 04-30-2025 Glucose quantitative blood xcpt reagent strip Rick Chow MD Work Phone: Start: 04-30-2025 Basic metabolic pane l calcium total Se Sherman DO Work Phone: Start: 04-29-2025 Glucose quantitative blood xcpt reagent strip Rick Chow MD Work Phone: Start: 04-29-2025 Glucose quantitative blood xcpt reagent strip Rick Chow MD Work Phone: Start: 04-29-2025 Glucose quantitative blood xcpt reagent strip Rick Chow MD Work Phone: Start: 04-29-2025 Glucose quantitative blood xcpt reagent strip Rick Chow MD Work Phone: Start: 04-29-2025 Basic metabolic pane l calcium total Se Sherman DO Work Phone: Start: 04-28-2025 Glucose quantitative blood xcpt reagent strip Rick Chow MD Work Phone: Start: 04-28-2025 Glucose quantitative blood xcpt reagent strip Rick Chow MD Work Phone: Start: 04-28-2025 Ct head/brain w/o co ntrast material Rick Chow MD Work Phone: Start: 04-28-2025 Glucose quantitative blood xcpt reagent strip Rick Chow MD Work Phone: Start: 04-28-2025 Glucose quantitative blood xcpt reagent strip Rick Chow MD Work Phone: Start: 04-28-2025 Glucose quantitative blood xcpt reagent strip Rick Chow MD Work Phone: Start: 04-28-2025 Basic metabolic pane l calcium total Se Sherman DO Work Phone: Start: 04-28-2025 Manual Differential panel - Blood Se Sherman DO Work Phone: Start: 04-27-2025 Glucose quantitative blood xcpt reagent strip Rick Chow MD Work Phone: Start: 04-27-2025 Glucose quantitative blood xcpt reagent strip Rick Chow MD Work Phone: Start: 04-27-2025 Glucose quantitative blood xcpt reagent strip Rick Chow MD Work Phone: Start: 04-27-2025 Basic metabolic pane l calcium total Se Sherman DO Work Phone: Start: 04-26-2025 Glucose quantitative blood xcpt reagent strip Rick Chow MD Work Phone: Start: 04-26-2025 Glucose quantitative blood xcpt reagent strip Rick Chow MD Work Phone: Start: 04-26-2025 Glucose quantitative blood xcpt reagent strip Rick Chow MD Work Phone: Start: 04-26-2025 Glucose quantitative blood xcpt reagent strip Rick Chow MD Work Phone: Start: 04-26-2025 Basic metabolic pane l calcium total Se Sherman DO Work Phone: Start: 04-25-2025 Glucose quantitative blood xcpt reagent strip Madan Alvares MD Work Phone: Start: 04-25-2025 Glucose quantitative blood xcpt reagent strip Darren Hawley DO Work Phone: Start: 04-25-2025 Ct head/brain w/o co ntrast material Quita Todd MD Work Phone: Start: 04-25-2025 Basic metabolic pane l calcium total Se Sherman DO Work Phone: Start: 04-25-2025 Calcium ionized Iesharadha Rene Casas DO Work Phone: Start: 04-24-2025 Glucose quantitative blood xcpt reagent strip Darren Hawley DO Work Phone: Start: 04-24-2025 Echo tthrc r-t 2d w/ wom-mode compl spec&colr d Iesharadha Rene Casas DO Work Phone: Start: 04-24-2025 Glucose quantitative blood xcpt reagent strip Darren Hawley DO Work Phone: Start: 04-24-2025 Ct head/brain w/o co ntrast material Paul Montano DO Work Phone: Start: 04-24-2025 Basic metabolic pane l calcium total Se Sherman DO Work Phone: Start: 04-24-2025 Manual Differential panel - Blood Iesharadha Rene Casas DO Work Phone: Start: 04-23-2025 Glucose quantitative blood xcpt reagent strip Martin Cline MD Work Phone: Start: 04-23-2025 Glucose quantitative blood xcpt reagent strip Martin Cline MD Work Phone: Start: 04-23-2025 Glucose quantitative blood xcpt reagent strip Martin Cline MD Work Phone: Start: 04-23-2025 End: 04-23-2025 Basic metabolic panel calcium total Se Sherman DO Work Phone: Start: 04-22-2025 Ct head/brain w/o co ntrast material Paul Montano DO Work Phone: Start: 04-22-2025 Glucose quantitative blood xcpt reagent strip Martin Cline MD Work Phone: Start: 04-22-2025 Glucose quantitative blood xcpt reagent strip Martin Cline MD Work Phone: Start: 04-22-2025 Mri brain brain stem w/o contrast material Iesha Casas DO Work Phone: Start: 04-22-2025 Glucose quantitative blood xcpt reagent strip Martin Cline MD Work Phone: Start: 04-22-2025 Radiologic exam ches t single view Martin Cline MD Work Phone: Start: 04-22-2025 Radiologic exam abdo men 1 view Martin Cline MD Work Phone: Start: 04-22-2025 XR [employer] Views for f oreign body Martin Cline MD Work Phone: Start: 04-22-2025 Glucose quantitative blood xcpt reagent strip Martin Cline MD Work Phone: Start: 04-22-2025 Basic metabolic pane l calcium total Se Sherman DO Work Phone: Start: 04-22-2025 Lipid panel Iesharadha Michaels Casas DO Work Phone: Start: 04-22-2025 Ecg routine ecg w/le ast 12 lds trcg only w/o i&r Iesharadha Rene Casas DO Work Phone: Start: 04-22-2025 Assay of troponin quantitative Iesha Anju Casas DO Work Phone: Start: 04-22-2025 RFA Cerebral arterie s Bilateral Views W contrast KIMBERLY Gonzalez MD Work Phone: Start: 04-21-2025 Prothrombin time Chandra Diggs MD Work Phone: Start: 03-31-2025 Assay of prostate sp ecific antigen total Dr. Bre Flores DO Work Phone: Comment on above: This test was perfor med using the [employer] tPSA method. Measured values of a patient sample can vary depending on the testing procedure used. PSA values determined on patient samples by different testing procedures cannot be used interchangeably. If there is a change in PSA assays while monitoring therapy, sequential testing should be performed to confirm baseline values. Start: 03-27-2023 Echocardiography BOBBY IBARRA MD Comment on above: 1. Left ventricle: T he cavity size is normal. Wall thickness is mildly increased. Systolic function is mildly reduced. The estimated ejection fraction is 45%. There is mild diffuse hypokinesis. Diastolic dysfunction is present. 2. Aortic valve: Thickening, consistent with sclerosis. There is trivial regurgitation. 3. Mitral valve: There is mild regurgitation. 4. Right ventricle: Systolic function is reduced. The RV systolic pressure by Doppler is 9 mm Hg. 5. Right atrium: The estimated right atrial pressure is 3 mm Hg. Start: 12-05-[address] BRE FLORES DO Comment on above: Calcific and tortuou s three-vessel disease with 50% left main distal stenosis. 100% ostial occluded LAD, and 100% mid occluded RCA calcified vessel. The obtuse marginal was tortuous and heavily calcified with 80% proximal stenosis. There is patent CARNEY to the LAD and collaterals to the RCA Start: 10-27-[address] FRANCISCO FLORES DO Comment on above: (10/27/18) Summary: 1. Left ventricle: The cavity size is normal. Wall thickness is mildly increased. Systolic function is normal. The estimated ejection fraction is 55-60%. Wall motion is normal; there are no regional wall motion abnormalities. 2. Mitral valve: There is mild regurgitation. 3. Right ventricle: The RV systolic pressure by Doppler is 29 mm Hg. 4. Right atrium: The estimated right atrial pressure is 10 mm Hg. Start: 04-15-2018 Coronary artery bypass graft DR BRE FLORES DO Comment on above: 1. CORONARY ARTERY B YPASS GRAFT X 3 WITH CARNEY TO LAD, SVG TO PDA AND SVG TO OM1 2. LEFT GREATER SAPHENOUS ENDOSCOPIC VEIN HARVEST 3. LIGATION OF LEFT ATRIAL APPENDAGE 4. INSERTION OF TEMPORARY VENTRICULAR PACING WIRES 5. INTRAOPERATIVE ASTON Start: 04-13-2018 Imaging of carotid a rteries by duplex scan with spectrum analysis DR BRE FLORES DO Comment on above: Study suggests 1-39% stenosis by velocity criteria involving the right internal carotid artery and the left internal carotid artery. Start: 04-12-[address] BRE FLORES DO Comment on above: Left ventricle: Syst olic function is normal. The estimated EF is 55-60% 2Left main: Ostial lesion: There is 50% stenosis. 3. LAD: Ostial lesion: There is a 95% stenosis. Midvessel lesion: There is a iscrete, 80% stenosis. 4. Left circumflex: Midvessel lesion: There is a discrete, 90% stenosis. Right coornary: Midvessel lesion: Thee is a 100% stenosis. Basal cell carcinoma (morphologic abnormality) DR BRE FLORES DO Comment on above: 11/2005 - Mohs proce dure x2 Kidney stone (disorder) DR Alessia FLORES DO Comment on above: lithotripsy Prostatic structure (body structure) DR BRE FLORES DO Plan of Treatment Date Care Activity Detail Author Start: 08-24-2027 DTaP/Tdap/Td Vaccines (3 - Td or Tdap) DTaP/Tdap/Td Vaccines (3 - Td or Tdap) [email or web address] Start: 08-24-2027 [email or web address] Start: 05-22-2026 Creatinine measurement Creatinine Level [facility] Start: 05-22-2026 Diabetes: Estimated Glomerular Filtration Rate for Kidney Health Diabetes: Estimated Glomerular Filtration Rate for Kidney Health [email or web address] Start: 05-22-2026 Potassium measurement Potassium Level [email or web address] Start: 05-15-2026 Creatinine measurement Creatinine Level [facility] Start: 05-15-2026 Diabetes: Estimated Glomerular Filtration Rate for Kidney Health Diabetes: Estimated Glomerular Filtration Rate for Kidney Health [facility] Start: 05-15-2026 Potassium measurement Potassium Level [email or web address] Start: 05-12-2026 Creatinine measurement Creatinine Level [facility] Start: 05-12-2026 Diabetes: Estimated Glomerular Filtration Rate for Kidney Health Diabetes: Estimated Glomerular Filtration Rate for Kidney Health [facility] Start: 05-12-2026 Potassium measurement Potassium Level [facility] Start: 05-01-2026 [facility] Start: 04-24-2026 Echocardiography Echocardiogram [facility] Start: 09-18-2025 End: 09-18-2025 Patient encounter procedure 09/18/2025 12:40 PM EST Office Visit [facility] [address] [facility] [address] [place] [address] Jorge Estrada MD [address] [address] [facility] Start: 06-26-2025 Influenza vaccination Influenza Vaccine (#1) [facility] Start: 06-26-2025 [facility] Start: 06-05-2025 End: 06-05-2026 Home sleep test Home sleep test Sleep Center Routine OSIEL (obstructive sleep apnea) Expected: 06/05/2025 (Approximate), Expires: 06/05/2026 [email or web address] Work Phone: Comment on above: Expected: 06/05/2025 (Approximate), Expi res: 06/05/2026 Start: 06-05-2025 End: 06-05-2025 ambulatory [facility] Start: 06-05-2025 End: 06-05-2025 Patient encounter procedure 06/05/2025 1:00 PM EDT Office Visit [facility] [address] [facility] [address] [place] [address] Lakesha Samson, CAN Lee CNP [address] [facility] [address] [place] [address] [facility] Start: 05-02-2025 End: 05-02-2027 Cardiac event monitor (30 days) Cardiac event monitor (30 days) [facility] Routine TIA (transient ischemic attack) Expected: 05/02/2025, Expires: 05/02/2027 [facility] Work Phone: Comment on above: Expected: 05/02/2025, Expires: Start: 01-26-2025 COVID-19 Vaccine ( season) COVID-19 Vaccine ( season) [facility] Start: 01-26-2025 [facility] Start: 10-26-2024 Medicare Advantage Annual Wellness Visit Medicare Advantage Annual Wellness Visit [facility] Start: 10-26-2024 [facility] Start: 2021 RSV Immunization for Adults (1 - 1-dose 75+ series) RSV Immunization for Adults (1 - 1-dose 75+ series) [facility] Start: 2021 [facility] Start: 1964 Diabetes: Urine Albumin-Creatinine Ratio for Kidney Health Diabetes: Urine Albumin-Creatinine Ratio for Kidney Health [facility] Start: 1964 Hepatitis C screening [facility] Start: 1964 [facility] Start: 1958 Depression Screening Depression Screening [facility] Start: 1958 [facility] Immunizations Immunization Date Immunization Notes Care Provider [facility] 07-28-2024 influenza virus vaccine, unspecified formulation DR BRE FLORES DO [facility] Comment on above: Result Comment: [facility] 07-28-2024 SARS-CoV-2 (COVID-19 ) mRNA-[address] BRE FLORES DO [facility] Comment on above: Result Comment: [facility] 03-04-2024 Pneumococcal conjuga te PCV20, polysaccharide TOL502 conjugate, adjuvant, PF; Translations: [Prevnar 20] DR LEXII DUMONT MD [facility] 07-16-2023 influenza virus vaccine, unspecified formulation DR BRE FLORES DO [facility] 07-16-2023 SARS-CoV-2 (CV19)mRNA-[address] BRE FLORES DO [facility] 07-08-2022 influenza virus vaccine, unspecified formulation DR BRE FLORES DO [facility] 07-08-2022 SARS-CoV-2 (CV19)mRNA-1273 bivalent vac HERMINIA IBARRA MD [facility] 07-08-2022 SARSCoV2 (CV19)mRNA-1273(6y+ bival paxton DR BRE FLORES DO [facility] 02-25-2022 COVID-19, mRNA, LNP- S, PF, 100 mcg or 50 mcg dose; Translations: [Moderna COVID-19 Vaccine] DR BRE FLORES DO [facility] 07-31-2021 SARS-CoV-2 (COVID-19 ) mRNA-[address] BRE FLORES DO [facility] Comment on above: Result Comment: 2020: TPV75 07-17-2021 influenza virus vaccine, unspecified formulation DR BRE FLORES DO [facility] 11-26-2020 SARS-CoV-2 mRNA (tozinameran) vaccine DR BRE FLORES DO [facility] 09-21-2020 zoster vaccine, live DR MELANIA FLORES DO [facility] Comment on above: Location History: [facility] 07-21-2020 influenza virus vaccine, unspecified formulation DR BRE FLORES DO [facility] Comment on above: Location History: [facility] 07-21-2020 zoster vaccine, live DR MELANIA FLORES DO [facility] Comment on above: Location History: [facility] 08-09-2019 influenza, injectabl e, quadrivalent, preservative free; Translations: [Fluarix PF Quadrivalent ] DR BRE FLORES DO [facility] 09-07-2018 influenza virus vaccine, unspecified formulation DR BRE FLORES DO [facility] 08-24-2017 tetanus and diphther ia toxoids, adsorbed, preservative free, for adult use (5 Lf of tetanus toxoid and 2 Lf of diphtheria toxoid) DR BRE FLORES DO [facility] 08-10-2017 Influenza virus vaccine [facility] 08-10-2017 influenza virus vaccine, unspecified formulation DR BRE FLORES DO [facility] 08-13-2015 influenza virus vaccine, unspecified formulation DR BRE FLORES DO [facility] 08-13-2015 pneumococcal conjuga te vaccine, [address] BRE FLORES DO [facility] 08-01-2014 influenza virus vaccine, unspecified formulation DR BRE FLROES DO [facility] 07-22-2013 influenza virus vaccine, unspecified formulation DR BRE FLORES DO [facility] 06-17-2011 pneumococcal polysaccharide vaccine, [address] BRE FLORES DO [facility] 08-06-2007 tetanus toxoid, redu kai diphtheria toxoid, and acellular pertussis vaccine, adsorbed DR BRE FLORES DO [facility] 08-06-2007 zoster vaccine, live DR MELANIA FLORES DO [facility] Payers Date Payer Category Payer Private Health Insurance [id number] 2025 Unknown [id number] 2024 Medicare HMO [id number] 2024 Self-pay [id number] 2023 Medicare [id number] 1945 Unknown [id number] 2.16.8 40.1.654086.3.579.2.627 1945 Unknown [id number] 2.16.8 40.1.144631.3.579.2.627 1945 Unknown [id number] 2.16.8 40.1.928729.3.579.2.627 1945 Unknown [id number] 2.16.8 40.1.505827.3.579.2.627 1945 Unknown [id number] 2.16.8 40.1.131199.3.579.2.62 1945 Unknown [id number] 2.16.8 40.1.575423.3.579.2.627 1945 Unknown [id number] 2.16.8 40.1.996553.3.579.2.62 1945 Unknown [id number] 2.16.8 40.1.669837.3.579.2.62 1945 Unknown [id number] 2.16.8 40.1.109169.3.579.2. 1945 Unknown [id number] 2.16.8 40.1.699197.3.579.2. 1945 Unknown [id number] 2.16.8 40.1.866303.3.579.2.62 1945 Unknown [id number] 2.16.8 40.1.046208.3.579.2. 1945 Unknown [id number] 2.16.8 40.1.169288.3.579.2.627 1945 Unknown [id number] 2.16. 840.1.447750.3.579.2.62 1945 Unknown [id number] 2.16. 840.1.917273.3.579.2.62 1945 Unknown [id number] 2.16. 840.1.887117.3.579.2.62 1945 Unknown [id number] 2.16. 840.1.375593.3.579.2.62 1945 Unknown [id number] 2.16.8 40.1.344943.3.579.2.62 1945 Unknown [id number] 2.16.8 40.1.991549.3.579.2.627 1945 Unknown [id number] 2.16.8 40.1.410767.3.579.2.627 1945 Unknown [id number] 2.16. 840.1.573403.3.579.2.732 Unknown [id number] 2.16.8 40.1.582907.3.579.2.462 Unknown [id number] 2.16.8 40.1.793781.3.579.2.462 Unknown [id number] 2.16.8 40.1.211867.3.579.2.462 Unknown [id number] 2.16.8 40.1.093299.3.579.2.462 Unknown [id number] 2.16.8 40.1.770521.3.579.2.462 Social History Date Type Detail Facility Start: 08-05-2019 End: 06-27-2025 Ex-smoker (finding) [facility] Comment on above: quit 03/2006 Start: 1945 Sex Assigned At Male A [facility] Start: 12-03-2017 End: 12-03-2017 Tobacco smoking status NHIS Unknown if ever smoked [facility] Sexual Orientation [facility] Start: 09-19-2019 End: 04-21-2025 Sex Male (finding) [facility] Start: 05-01-2025 End: 06-05-2025 History of Social function [email or web address] Start: 05-01-2025 End: 06-05-2025 [facility] [email or web address] Has the electric, Jobaline, Ommven, or water company threatened to shut off services in your home in past 12Mo No [email or web address] (I/We) worried wheth er (my/our) food would run out before (I/we) got money to buy more. Never true [email or web address] Start: 1945 Sex assigned at [facility] Start: 06-05-2025 Tobacco smoking stat [facility] Never smoked tobacco [facility] Start: 06-05-2025 Tobacco use and exposure Smoke less tobacco non-user [facility] Start: 06-05-2025 Alcoholic beverage intake Current drinker of alcohol (finding) [facility] Medical Equipment Procedure Code Equipment Code Equipment Origin al Text Equipment Identifier Dates Blood Glucose Te st Strips Start: 02-23-[address] Strips Start: 02-21-2020 See Instructions , 1 bottle of 100 One Touch dx: E11.9 test blood glucose once daily, # 1 EA, 5 Refill(s), Pharmacy: [facility]/pharmacy #[id number], 180.3, cm, 02/23/20 14:00:00 EDT, Height, 77.8, kg, 02/23/20 14:00:00 EDT, Dosing Weight Start: 02-23-2020 See Instructions , 1 bottle of 100 One Touch dx: E11.9, # 1 EA, 5 Refill(s), Pharmacy: [facility]/pharmacy #[id number], 180.3, cm, 02/21/20 12:41:00 EDT, Height, 77.8, kg, 02/21/20 12:41:00 EDT, Dosing Weight Start: 02-21-2020 HITESH 3GRM HEMO STAT ABS FDA Start: 12-16-2017 RAJAT MORTENSEN LG FDA Start: 12-16-2017 RAJAT MORTENSEN LG FDA Start: 12-16-2017 RAJAT MORTENSEN LG FDA Start: 12-16-2017 See Instructions , 1 bottle of 100 One Touch dx: E11.9 test blood glucose once daily, # 1 EA, 5 Refill(s), Pharmacy: [facility]/pharmacy #[id number], 180.3, cm, 02/23/20 14:00:00 EDT, Height, 77.8, kg, 02/23/20 14:00:00 EDT, Dosing Weight Start: 02-23-2020 See Instructions , 1 bottle of 100 One Touch dx: E11.9, # 1 EA, 5 Refill(s), Pharmacy: [facility]/pharmacy #[id number], 180.3, cm, 02/21/20 12:41:00 EDT, Height, 77.8, kg, 02/21/20 12:41:00 EDT, Dosing Weight Start: 02-21-2020 HITESH 3GRM HEMO STAT ABS FDA Start: 12-16-2017 RAJAT MORTENSEN LG FDA Start: 12-16-2017 FESTUSHEMGLORIASHARIF LG BANDAR FDA Start: 12-16-2017 FESTUSHEMGLORIASHARIF [facility] FDA Start: 12-16-2017 See Instructions , 1 bottle of 100 One Touch dx: E11.9 test blood glucose once daily, # 1 EA, 5 Refill(s), Pharmacy: [facility]/pharmacy #[id number], 180.3, cm, 02/23/20 14:00:00 EDT, Height, 77.8, kg, 02/23/20 14:00:00 EDT, Dosing Weight Start: 02-23-2020 See Instructions , 1 bottle of 100 One Touch dx: E11.9, # 1 EA, 5 Refill(s), Pharmacy: [facility]/pharmacy #[id number], 180.3, cm, 02/21/20 12:41:00 EDT, Height, 77.8, kg, 02/21/20 12:41:00 EDT, Dosing Weight Start: 02-21-2020 See Instructions , 1 bottle of 100 One Touch dx: E11.9 test blood glucose once daily, # 1 EA, 5 Refill(s), Pharmacy: [facility]/pharmacy #[id number], 180.3, cm, 02/23/20 14:00:00 EDT, Height, 77.8, kg, 02/23/20 14:00:00 EDT, Dosing Weight Start: 02-23-2020 See Instructions , 1 bottle of 100 One Touch dx: E11.9, # 1 EA, 5 Refill(s), Pharmacy: [facility]/pharmacy #[id number], 180.3, cm, 02/21/20 12:41:00 EDT, Height, 77.8, kg, 02/21/20 12:41:00 EDT, Dosing Weight Start: 02-21-2020 See Instructions , 1 bottle of 100 One Touch dx: E11.9 test blood glucose once daily, # 1 EA, 5 Refill(s), Pharmacy: [facility]/pharmacy #[id number], 180.3, cm, 02/23/20 14:00:00 EDT, Height, 77.8, kg, 02/23/20 14:00:00 EDT, Dosing Weight Start: 02-23-2020 See Instructions , 1 bottle of 100 One Touch dx: E11.9, # 1 EA, 5 Refill(s), Pharmacy: [facility]/pharmacy #4605, 180.3, cm, 02/21/20 12:41:00 EDT, Height, 77.8, kg, 02/21/20 12:41:00 EDT, Dosing Weight Start: 02-21-2020 HITESH 3GRM HEMO STAT ABS FDA Start: 12-16-2017 FESTUSHEMEMMY LG PEGGY FDA Start: 12-16-2017 FESTUSHEMEMMY LG BANDAR FDA Start: 12-16-2017 FESTUSHEMEMMY [facility] FDA Start: 12-16-2017 See Instructions , 1 bottle of 100 One Touch dx: E11.9 test blood glucose once daily, # 1 EA, 5 Refill(s), [id number] 180.3, cm, 02/23/20 14:00:00 EDT, Height, 77.8, kg, 02/23/20 14:00:00 EDT, Dosing Weight Start: 02-23-2020 See Instructions , 1 bottle of 100 One Touch dx: E11.9, # 1 EA, 5 Refill(s), [id number], 180.3, cm, 02/21/20 12:41:00 EDT, Height, 77.8, kg, 02/21/20 12:41:00 EDT, Dosing Weight Start: 02-21-2020 See Instructions , 1 bottle of 100 One Touch dx: E11.9 test blood glucose once daily, # 1 EA, 5 Refill(s), Pharmacy: [facility]/pharmacy #4605, 180.3, cm, 02/23/20 14:00:00 EDT, Height, 77.8, kg, 02/23/20 14:00:00 EDT, Dosing Weight Start: 02-23-2020 See Instructions , 1 bottle of 100 One Touch dx: E11.9, # 1 EA, 5 Refill(s), [id number], 180.3, cm, 02/21/20 12:41:00 EDT, Height, 77.8, kg, 02/21/20 12:41:00 EDT, Dosing Weight Start: 02-21-2020 See Instructions , 1 bottle of 100 One Touch dx: E11.9 test blood glucose once daily, # 1 EA, 5 Refill(s), Pharmacy: [facility]/pharmacy #4605, 180.3, cm, 02/23/20 14:00:00 EDT, Height, 77.8, kg, 02/23/20 14:00:00 EDT, Dosing Weight Start: 02-23-2020 See Instructions , 1 bottle of 100 One Touch dx: E11.9 test blood glucose once daily, # 1 EA, 5 Refill(s), [id number], 180.3, cm, 02/23/20 14:00:00 EDT, Height, 77.8, kg, 02/23/20 14:00:00 EDT, Dosing Weight Start: 02-23-2020 HITESH 3GRM HEMO STAT ABS FDA Start: 12-16-2017 RAJAT MORTENSEN LG [facility] FDA Start: 12-16-2017 FESTUSHEMEMMY [facility] FDA Start: 12-16-2017 FESTUSHEMEMMY [facility] FDA Start: 12-16-2017 See Instructions , 1 bottle of 100 One Touch dx: E11.9 test blood glucose once daily, # 1 EA, 5 Refill(s), [id number], 180.3, cm, 02/23/20 14:00:00 EDT, Height, 77.8, kg, 02/23/20 14:00:00 EDT, Dosing Weight Start: 02-23-2020 See Instructions , 1 bottle of 100 One Touch dx: E11.9 test blood glucose once daily, # 1 EA, 5 Refill(s), Pharmacy: [facility]/pharm[facility] #4[facility], 180.3, cm, 02/23/20 14:00:00 EDT, Height, 77.8, kg, 02/23/20 14:00:00 EDT, Dosing Weight Start: 02-23-2020 See Instructions , 1 bottle of 100 One Touch dx: E11.9 test blood glucose once daily, # 1 EA, 5 Refill(s), Pharmacy: [facility]acy #[id number], 180.3, cm, 02/23/20 14:00:00 EDT, Height, 77.8, kg, 02/23/20 14:00:00 EDT, Dosing Weight Start: 02-23-2020 See Instructions , 1 bottle of 100 One Touch dx: E11.9 test blood glucose once daily, # 1 EA, 5 Refill(s), [id number], 180.3, cm, 02/23/20 14:00:00 EDT, Height, 77.8, kg, 02/23/20 14:00:00 EDT, Dosing Weight Start: 02-23-2020 See Instructions , 1 bottle of 100 One Touch dx: E11.9 test blood glucose once daily, # 1 EA, 5 Refill(s), [id number], 180.3, cm, 02/23/20 14:00:00 EDT, Height, 77.8, kg, 02/23/20 14:00:00 EDT, Dosing Weight Start: 02-23-2020 HITESH 3GRM HEMO STAT ABS FDA Start: 12-16-2017 FESTUSHEMEMMY [facility] FDA Start: 12-16-2017 FESTUSHEMEMMY [place] FDA Start: 12-16-2017 FESTUSHEMEMMY [facility] FDA Start: 12-16-2017 See Instructions , 1 bottle of 100 One Touch dx: E11.9 test blood glucose once daily, # 1 EA, 5 Refill(s), [id number], 180.3, cm, 02/23/20 14:00:00 EDT, Height, 77.8, kg, 02/23/20 14:00:00 EDT, Dosing Weight Start: 02-23-2020 [id number] Start: 04-24-2025 See Instructions , 1 bottle of 100 One Touch dx: E11.9 test blood glucose once daily, # 1 EA, 5 Refill(s), [id number], 180.3, cm, 02/23/20 14:00:00 EDT, Height, 77.8, kg, 02/23/20 14:00:00 EDT, Dosing Weight Start: 02-23-2020 See Instructions , 1 bottle of 100 One Touch dx: E11.9 test blood glucose once daily, # 1 EA, 5 Refill(s), [id number], 180.3, cm, 02/23/20 14:00:00 EDT, Height, 77.8, kg, 02/23/20 14:00:00 EDT, Dosing Weight Start: 02-23-2020 See Instructions , 1 bottle of 100 One Touch dx: E11.9 test blood glucose once daily, # 1 EA, 5 Refill(s), [id number], 180.3, cm, 02/23/20 14:00:00 EDT, Height, 77.8, kg, 02/23/20 14:00:00 EDT, Dosing Weight Start: 02-23-2020 HITESH 3GRM HEMO STAT ABS FDA Start: 12-16-2017 RAJAT MORTENSEN LG FDA Start: 12-16-2017 FESTUSHEMEMMY [facility] FDA Start: 12-16-2017 FE[facility]HEMEMMY [facility] FDA Start: 12-16-2017 Clinical Notes 03-27-2023 to 06-27-2025 Note Date & Type Note Facility 06-27-2025 Progress note [facility] 06-27-2025 Progress note Note Date/Time June 27, 2025 1:27pm [facility] [address] [place] [address]. [address] [place] [address] OFFICE VISIT Date of Service: 06/27/25 MR#: [id number] Acct: [id number] Name: TOM BOOTH Rep #: [id number] : 1945 Provider: Dr. Matheus Mcallister MD Age/Sex: 80/M Location: [facility] Status: Signed Intake Vital Signs 06/27/25 13:16 Height 5 ft 11 in Weight: 152 lb BMI 21.2 BP 147/79 H Blood Pressure Location Rt brachial Position Sitting Respiration 18 Pulse 78 Pulse Source Monitor Temp 98.0 F Temp Source Temporal Pulse Oximetry (%) 97 Oxygen Delivery Method room air Intake Visit Reasons: Hernia Chief Complaint: right inguinal hernia Accompanied by: Is patient in pain?: No Allergies No Known Allergies Allergy (Verified 06/27/25 13:17) Have you fallen in the past year?: No PFSH Medical History (Updated 06/27/25 @ 13:15 by Nargis Wilde LPN) Right inguinal hernia Surgical History (Updated 06/27/25 @ 13:15 by Nargis Wilde LPN) History of open heart surgery Hx of radical prostatectomy Social History (Updated 06/27/25 @ 13:16 by Nargis Wilde LPN) Smoking Status: Former smoker alcohol intake: current alcohol intake frequency: holidays/special occasions only substance use type: does not use HPI HPI HPI: Patient is a 80-year-old male here with right inguinal hernia. The patient had a recent stroke in March. The patient is having hemiplegia on the right side andhe is working on rehab currently. He is not on any blood thinners. ROS General General: No weight change, appetite, fatigue, colon cancer, breast cancer or weakness HEENT HEENT: No difficulty swallowing, eye injury, eye surgery, swollen glands or hoarseness Endo Endocrine: Yes diabetes mellitus; No thyroid disease, thyroid cancer, Hair loss, heat intolerance or cold intolerance Skin Skin: No rash or changing moles Musc Musculoskeletal: No back problems, arthritis, rheumatoid arthritis, gout or joint pain Cardio Cardiovascular: No murmur, pacemaker, heart disease, atrial fibrillation, high blood pressure, heart attack, heart stent, palpitations, shortness of breath with exertion or chest pain Psych Psychiatric: No depression, anxiety or hearing voices Resp Respiratory: No shortness of breath, Yes sleep apnea, No cough, No COPD, No asthma, No emphysema and No wheezing Gastro Gastrointestinal: No abdominal pain, No nausea or vomiting, No diarrhea, No constipation, No blood in stool, No acid reflux, No hemorrhoids, No ulcers, No gallbladder problem and No black,tarry stools Josue Hematologic: No blood thinners, No blood disorders, No bleeding, No anemia and No blood clots Neuro Neurologic: Yes as per HPI (hx stroke 03/2025) and No weakness Exam Const General: cooperative Orientation: alert and oriented x3 HENMT Head: normal to inspection Neck Neck: normal visual inspection and full ROM Chest Chest palpation & inspection: normal inspection of the chest Resp Effort & Inspection: normal respiratory effort Auscultation: clear to auscultation bilaterally Cardio Rate: regular rate Rhythm: regular rhythm GI Inspection: non-distended Palpation: soft and nontender Skin General: no rashes or lesions noted Neuro General: patient alert and patient oriented x3 Extrem General: full ROM Psych Appearance: grossly normal Mental Status: mental status grossly normal Assessment and Plan Assessment and Plan (1) Right inguinal hernia: Status: Acute Plan: The patient has a reducible right inguinal hernia. I discussed repair with him in detail. I discussed the risks of the procedure including but not limited to bleeding, infection, injury to other organ such as the blood supply of the testicle, bowel, chronic groin pain, mesh infection. Patient understands the risks [employer] proceed. He would like to push repair out a month so he can finishrehab for his stroke. Jacob Mcallister MD Pager: [facility] [address] [place] [address], [address] [place] [address] Office: Medications: Discontinued hydrocodone-acetaminophen 5-325 mg Discontinued Reason: Pt no longer taking 1 ea PO Q4H PRN 5 days PRN 10 [id number] Pain C61 - Malignant neoplasm of prostate ciprofloxacin HCl Discontinued Reason: Pt no longer taking 500 mg PO BID 20 tabs 0RF Coding Level of Care Code Off vis,new,level 3 Diagnoses Right inguinal hernia K40.90 Clinical Quality Measures Falls Risk Screening/Assistive Devices Have you fallen in the past year?: No 06/27/25 8117 <Electronically signed by Jacob urena MD> Date _ Jacob Mcallister MD Cosigner Signature: Date (if applicable) CC: ~ [place] [email or web address] Work Phone: 1(152) 444-159608-12-2025 Telephone encounter Note* Telephone Encounter - Yasmine Stokes MA - 06/06/2025 4:22 PM EDT Order faxed over [phone] [id number] Miscellaneous Notes* Telephone Encounter - Yasmine Stokes MA - 06/06/2025 4:22 PM EDT Order faxed over [phone] * Telephone Encounter - CAN Piña CNP - 06/06/2025 4:15 PM EDT Spoke with Maritza; letter written with my recommendation for patient to have PT twice weekly for next 6 weeks to rehab right sided weakness after his stroke. * Telephone Encounter - Victoria Martinez - 06/06/2025 3:34 PM EDT Name of caller: Maritza Contact phone number: [phone] Relationship to Patient: [facility] Provider: Dustin Samson Practice: Neurology Chief Complaint/Reason for Call: Maritza called stating that patient had told her that Dustin Samson wasgoing to put in writing the recommenced frequency of Physical Therapy at home. Maritza asking for a call back and for frequency in writing to be faxed to [phone]. Please advise. Best time of day caller can be reached: Any Patient advised that office/PCP has 24-48 business hours to return their call: N/A documented in [facility] encounterST[facility] [id number] Telephone encounter Note* Telephone Encounter - CAN Piña CNP - 06/06/2025 4:15 PM EDT Spoke with Maritza; letter written with my recommendation for patient to have PT twice weekly for next 6 weeks to rehab right sided weakness after his stroke. [facility] Work Phone: 1(863) 575-430608-12-2025 Telephone encounter Note* Telephone Encounter - Victoria Martinez - 06/06/2025 3:34 PM EDT Name of caller: Maritza Contact phone number: [phone] Relationship to Patient: [facility] Provider: Dustin Samson Practice: Neurology Chief Complaint/Reason for Call: Maritza called stating that patient had told her that Dustin Samson wasgoing to put in writing the recommenced frequency of Physical Therapy at home. Maritza asking for a call back and for frequency in writing to be faxed to [phone]. Please advise. Best time of day caller can be reached: Any Patient advised that office/PCP has 24-48 business hours to return their call: N/A [id number] History of Present illness Narrative* CAN Piña CNP - 06/05/2025 1:00 PM EDT Images from the original note were not included. [facility] [address] [facility] [address] Dept: [phone] Dept Loc: [phone] CHIEF COMPLAINT: Chief Complaint Patient presents with Hospital Follow-up Stroke HISTORY OF PRESENT ILLNESS: The patient is a 79 y.o. person who presents for stroke follow up. The patient presented to the emergency room for evaluation of right sided facial droop, hemiplegia, aphasia, neglect (transfer from [place]). The patient was found to have a stroke (left MCA territory infarction post tNk and attempted thrombectomy with HT) . The patient still has the following symptoms/signs from the stroke: expressive aphasia, difficulty writing; right sided weakness. LDL- 11 A1C-7.1 MRI brain 04/22/25- IMPRESSION: Scattered small foci of acute infarct throughout the left middle cerebral artery territory. In one focus within the basal ganglia is probably a superimposed hemorrhagic component. CT head/ CTA head/neck 05/11/25 (back to ED after an episode of drooling worsening of neuro problemsafter choking; no new stroke)- IMPRESSION: 1. No acute intracranial hemorrhage or territorial infarct. 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 2. No large vessel occlusion seen in the head or neck. Mild to moderate multifocal narrowing in theleft MCA M2 and M3 superior segment branches. 3. Nonspecific asymmetric prominence of the right tongue base, which may be due to neurologic deficit among other possibilities. Recommend correlation with physical examination. 4. 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 5. 1.7 x 1.0 cm nodular density along the posterior inferior right thyroid, which may be extrathyroidal no nodule or parathyroid adenoma. Ultrasound and/or nuclear medicine parathyroid scan could be considered for further evaluation as clinically warranted. MBS 05/11/25- IMPRESSION: No vocal cord penetration or airway aspiration. The following changes to the patients medication regimen were made due to the stroke: ASA 81mg x 2;was already on aASA 81mg, atorvastatin 80mg, zetia, repatha at home Did [facility] for therapies and will continue with at home therapies - PT/OT, ST The patient had physical therapy after the stroke: Yes The patient had occupational therapy after the stroke: Yes The patient had speech therapy after the stroke: Yes The patient had outpatient heart monitor after stroke: No; ordered and needs appt with [facility] stroke clinic. 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 states today that he had one episode of A-fib after his CABG and states they were told this was normal after a procedure like that. The patient reports excessive daytime sleepiness. Snoring? no Tired? (Tired, Fatigued, or Sleepy during the daytime) Yes Observed? (Stop Breathing or Choking/Gasping during your sleep)no Pressure? (High blood pressure meds?)yes Body Mass Index is 28 or greater?no Age greater than 50?yes Neck size (Men >17 in, Women >16 in)no Gender Male?yes STOP BANG score of 4/8 No new stroke like symptoms or neurological changes Past Medical History: has a past medical history of Diabetes (HCC) and Stroke (HCC). Past Surgical History: has a past surgical history that includes Cardiac surgery (2018) and Prostate surgery (2018). Medications: Current Medications[1] Allergies: Fosinopril, Lovastatin, and Azithromycin Social History: Social History Socioeconomic History Marital status: Spouse name: Not on file Number of children: Not on file Years of education: Not on file Highest education level: Not on file Occupational History Not on file Tobacco Use Smoking status: Never Smokeless tobacco: Never Substance and Sexual Activity Alcohol use: Yes Drug use: Never Sexual activity: Not on file Other Topics Concern Not on file Social History Narrative Not on file Social Drivers of Health Financial Resource Strain: Not on file Food Insecurity: No Food Insecurity (05/01/2025) Hunger Vital Sign Worried About Running Out of Food in the Last Year: Never true Ran Out of Food in the Last Year: Never true Transportation Needs: No Transportation Needs (05/01/2025) PRAPARE - Transportation Lack of Transportation (Medical): No Lack of Transportation (Non-Medical): No Physical Activity: Not on file Stress: Not on file Social Connections: Not on file Intimate Partner Violence: Not At Risk (05/01/2025) Humiliation, Afraid, Rape, and Kick questionnaire Fear of Current or Ex-Partner: No Emotionally Abused: No Physically Abused: No Sexually Abused: No Housing Stability: Low Risk (05/01/2025) Housing Stability Vital Sign Unable to Pay for Housing in the Last Year: No Number of Times Moved in the Last Year: 0 Homeless in the Last Year: No Family History: Family History[2] REVIEW OF SYSTEMS: Review of Systems PHYSICAL EXAM: Vitals: BP 115/71 (BP Location: Left arm, Patient Position: Sitting, BP Cuff Size: Adult) Pulse 83 Ht 5' 10 (1.778 m) Wt 149 lb (67.6 kg) BMI 21.38 kg/m General Appearance: Patient is in no apparent distress. Head is normocephalic, atraumatic Cardiovascular: Regular rate and rhythm. No heart murmurs. No carotid bruit Neurologic: Mentation: Alert and oriented x 3 to person, place and time. Speech and Language: Speech and language abnormal - expressive aphasia (says wrong words) Concentration and Attention: Concentration abnormal Memory: Memory abnormal 3/3 immediate recall; 0/3 short recall Fund of Knowledge: Fund of knowledge normal Cranial Nerves: II, III, IV, V, , VII, VIII, IX, X, XI, XII tested and were intact including fundoscopic exam (optic discs) and visual field to confrontation. Motor: Strength:Strength 5 out of 5 with normal tone except 4/5 right upper and lower extremity; has AFO right foot; pronation on right Alternating Movements: Normal Cogwheel Rigidity: None Tone: Tone is normal Tremor / Involuntary Movements: None Deep Tendon Reflexes: 1 out of 4 symmetrical in upper limbs. Brisk in bilateral lower extremities. Sensory: Normal sensation lower extremities; decreased pinprick sensation on right hand compared toleft; normal vibratory sensation on right compared to left Coordination: Normal coordination upper and lower extremities Gait and Station: could not safely test; did not bring walker DATA CT head wo IV contrast Result Date: 05/11/2025 Patient Name: TOM BOOTH : 1945 [facility]#: [id number] Exam Date/Time: 05/11/2025 09:49 Procedure: CT HEAD WO IV CONTRAST Ordering Provider: YATES MARK Reason For Exam: Neuro deficit, acute, stroke suspected EXAM TYPE: CT HEAD WO IV CONTRAST, CT HEAD NECK ANGIO W AND WO IV CONTRAST EXAM DATE AND TIME: 05/11/2025 9:49 AM EDT INDICATION: Neurologic deficit, weakness COMPARISON: None available. TECHNIQUE: Noncontrast CT head was obtained. Thin section CT angiography from the aortic arch to the skull base was performed for CT angiography neck and from the skull base to vertex for CT angiography head, following the administration of intravenous contrast. MIP and volume rendered reformats were obtained using a separate workstation. Review ofthe axial source data and the reconstructed images was performed. A total of 75 mL Isovue 370 IV contrast was administered for intravenous contrast. FINDINGS: Noncontrast CT head: Redemonstration of patchy hypodensity within the left basal ganglia and subinsular region. Chronic right cerebellar infarct. There is no CT evidence of an acute intracranial hemorrhage, territorial infarction, midline shift, mass effect, or extra-axial collection. The calderon-white differentiation remains preserved and the basal cisterns are patent. Patchy hypodensity is seen within periventricular white matter, suggest anju of chronic small vessel ischemic changes. Ventricles are appropriate in size for the patient's age and level of parenchymal volume. The osseous structures are unremarkable without evidence of a fracture. Mild mucosal thickening of the maxillary sinuses. Mastoid air cells remain well aerated. Improvement of hyperdense fluid collection along the right ocular globe which is now not well visualized, may be isodense subacute blood. ASPECTS SCORE: 10 CTA HEAD: ANTERIOR CIRCULATION Right CavernousCarotid Artery: Patent. No focal stenosis, segmental occlusion or aneurysm. Right Middle Cerebral Artery: Patent. No focal stenosis, segmental occlusion or aneurysm. Right Anterior Cerebral Artery: Patent. No focal stenosis, segmental occlusion or aneurysm. Left Cavernous Carotid Artery: Patent with mild to moderate multifocal narrowing of the superior segment branches Left Middle Cerebral Artery: Patent. No focal stenosis, segmental occlusion or aneurysm. Left Anterior Cerebral Artery: Patent.No focal stenosis, segmental occlusion or aneurysm. Anterior Communicating Artery: Patent Posterior Communicating: Not Visualized POSTERIOR CIRCULATION Right Vertebral Artery: Patent. No focal stenosis, segmental occlusion, dissection, or aneurysm. Left Vertebral Artery: Patent. No focal stenosis, segmental occlusion, dissection, or aneurysm. Basilar Artery: Patent. No focal stenosis, segmental occlusion, or aneurysm. Right Posterior Cerebral Artery: Patent. No focal stenosis, segmental occlusion, dissection, or aneurysm. Left Posterior Cerebral Artery: Patent. No focal stenosis, segmental occlusion, dissection, or aneurysm. CTA NECK: AORTIC ARCH: Three-vessel. BRACHIOCEPHALIC ORIGIN AND RIGHT COMMON CAROTID ORIGIN: Patent without significant stenosis. RIGHT COMMON CAROTID ARTERY: Patent with no hemodynamically significant stenosis. RIGHT CAROTID BIFURCATION/PROX INT CAROTID ARTERY: Moderate atherosclerotic plaque. Less than 10 percent stenosis by NASCET criteria. CERVICAL SEGMENT RIGHT CAROTID ARTERY: Patent with no hemodynamically significant stenosis. LEFT COMMON CAROTID: Patent with no hemodynamically significant stenosis. LEFT CAROTID BIFURCATION/PROX LEFT INT CAROTID: Mild plaque within the carotid bulb. Less than 10 percent stenosis by NASCET criteria. CERVICAL SEGMENT LEFT INTERNAL CAROTID: Patent with no hemodynamically significant stenosis. RIGHT VERTEBRAL ARTERY:Patent with no hemodynamically significant stenosis or dissection. LEFT VERTEBRAL ARTERY:Patent with nohemodynamically significant stenosis or dissection. ACCESSORY STRUCTURES: Asymmetric prominence of the right tongue base. Medialization of the left vocal cord. There is no cervical lymphadenopathy. The airways are patent and the lung apices are clear. Straightening of the normal cervical lordosis wi th multilevel degenerative changes of the cervical spine. 1.7 x 1.0 cm nodular density along the posterior inferior right thyroid, which may be extrathyroidal no nodule or parathyroid adenoma. Partially visualized median sternotomy wires. 1. No acute intracranial hemorrhage or territorial infarct. 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 2. No large vessel occlusion seen in the head or neck. Mild to moderate multifocal narrowing in the left MCA M2 and M3 superior segment branches. 3. Nonspecific asymmetric prominence of the right tongue base, which may be due to neurologic deficit among other possibilities. Recommend correlation with physical examination. 4. 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 5. 1.7 x 1.0 cm nodular density along the posterior inferior right thyroid, which may be extrathyroidal no nodule or parathyroid adenoma. Ultrasound and/or nuclear medicine parathyroid scan could be considered for further evaluation as clinically warranted. CRITICAL TEST RESULT COMMUNICATION: Critical findings discussed with Dr. Cueva at 05/11/2025 0956 AM EDT. Report Dictated on Electronically Signed By: DR Marino Chacon lectronically Signed Date/Time: 05/11/2025 10:[address] head wo IV contrast Result Date: 04/28/2025 Patient Name: TOM BOOTH : 1945 Exam Date/Time: 04/28/2025 15:46 Procedure: CT HEAD WO IV CONTRAST Ordering Provider: CHOW STEPHEN Reason For Exam: Orbital bleeding CT HEAD: CLINICAL INDICATION: Orbital bleeding. Acute cerebral infarct TECHNIQUE: Transaxial CT sequence performed through the head with 3 mm reconstruction. Sagittal and Coronal reconstruction images included. Dose reduction employed with automated exposure control. COMPARISON: Three days ago FINDINGS: Ventricles and Extra-axial spaces: Normal in size and morphology for the patient's age. No abnormal extracerebral collection identified. Cerebral and cerebellar parenchyma: Again noted is a low-attenuation in the left frontal lobe extending to the sylvian fissure involving the insular cortex with involvement of the basal ganglia extending over region of at least 4 cm, corresponding to recent infarct. No other focal lesion throughout the cerebrum o r cerebellum Hemorrhage: No new intracranial hemorrhage Brainstem: Normal Visualized Paranasal sinuses: Right maxillary sinus mucosal thickening. Mastoid air cells: Normal Visualized Orbits: There isno abnormal collection within the right or left globe. There is some high attenuation along the anterior margin of the inferior aspect of the right lobe with thickness of up to 0.3 cm on 7:40 Calvarium and skull base: Normal Other: Atherosclerotic calcification within the distal internal carotid arteries 1. Evolving region of infarct in the left middle cerebral artery territory. 2. High attenuation collection along the anterior inferior border of the globe possibly subconjuctival hemorrhage Report Dictated on Electronically Signed By: Piter Waldron MD Electronically Signed Date/Time: 04/28/2025 4:[address] head wo IV contrast Result Date: 04/25/2025 Patient Name: TOM BOOTH : 1945 [facility]#: [id number] Exam Date/Time: 04/25/2025 05:11 Procedure: CT HEAD WO IV CONTRAST Ordering Provider: TODD MADIHAH Reason For Exam: Stroke, follow up EXAMINATION: CT HEAD WO IV CONTRAST HISTORY: Stroke, follow up - - - - - [id number] - - - - TECHNIQUE: CT head without contrast. Dose reduction was employed with automated exposure control. COMPARISON: CT head dated April 24, 2025 RESULT: Acute change: There is decreased attenuation involving the left insular cortex, left frontal operculum, and anterior left temporal lobe. Hemorrhage: High attenuation material is noted in the region of the left insula as well as the anterior left temporal lobe similar to previous exam without associated mass effect.. Mass Lesion / Mass Effect: No evidence of an intracranial mass, extra-axial fluid collection, or significant localized mass effect. Chronic change: None apparent. Parenchyma: There is no significant volume loss. The brain parenchyma is otherwise within normal limits for age. Ventricles: Normal caliber and morphology. Other: The calvarium, skull base, imaged paranasal sinuses, mastoids, orbits and extracranial soft tissues are unremarkable. Dynamite Reclaimer (topogram) images: No additional findings. Findings consistent with acute infarct in the left MCA territory involving the left insula, left frontal operculum and anterior left temporal lobe with areas of focal petechial hemorrhage without associated mass effect (ECASS HI-2). Report Dictated on Electronically SignedBy: Madan Cai MD Electronically Signed Date/Time: 04/25/2025 5:[address] head wo IV contrast Result Date: 04/24/2025 Patient Name: TOM BOOTH : 1945 [facility]#: [id number] Exam Date/Time: 04/24/2025 00:33 Procedure: CT HEAD WO IV CONTRAST Ordering Provider: CLINE ADRIAN Reason For Exam: stroke follow up EXAMINATION: CT of the head without intravenous contrast. INDICATION: stroke follow up COMPARISON: 04/22/2025 TECHNIQUE: Thin axial imaging of the head was performed without intravenous contrast. Images were reformatted in coronal and sagittal projections using the raw CT data and were interpreted in conjunction with the axial images to render the findings listed below. Dose reduction was employed with automated exposure control. FINDINGS: Limitations: None Ventricles: Generalized enlargement of the ventricles and sulci is noted. No extracerebral collection with mass effect. Brain: Focal areas of decreased attenuation again noted in the left MCA territory, including primarily subinsular cortex and parietal operculum, as well as the left basal ganglia. Small hyperdense foci adjacent to the basal ganglia and in the left temporal fossa compatible withpetechial hemorrhage stable compared to 04/14/2025 examination. No evidence of mass. Confluent areasof periventricular and subcortical white matter hypodensity are present, in keeping with chronic isc hemic microangiopathy. Brainstem: Normal Paranasal sinuses: Mucosal polyp or retention cysts of themaxillary sinuses. Mastoids: Clear. Skull and orbits: The skull and orbits are within normal limits. Stable findings compatible with acute on subacute/chronic ischemic change and infarcts of the left MCA territory, with stable petechial hemorrhage. Chronic microvascular change. Report Dictated on Electronically Signed By: Elmer Gaona MD Electronically Signed Date/Time: 04/24/2025 12:[address] head wo IV contrast Result Date: 04/23/2025 [facility] 1945 [id number] Exam Date/Time: 04/22/2025 23:41 Procedure: CT HEAD WO IV CONTRAST Ordering Provider: CLINE ADRIAN Reason For Exam: Stroke, follow up CT BRAIN WITHOUT CONTRAST CLINICAL INDICATION: Stroke, follow up TECHNIQUE: CT scan of the brain without IV contrast. Multiplanar reformations. Dose reductionwas employed with automated exposure control. COMPARISON: MRI brain, 1 day prior. FINDINGS: Focal areas of decreased attenuation again noted in the left MCA territory, including primarily subinsular cortex and parietal operculum, as well as left basal ganglia. Very small hyperdense foci adjacent to the basal ganglia and in the left temporal fossa suggesting petechial hemorrhage in corresponding to foci of T2* susceptibility on comparison. No apparent mass, other hemorrhage, midline shift or hydrocephalus. No abnormal, extra-axial fluid or air collection. Patchy low density in the periventricular and subcortical white matter is nonspecific, but may relate to chronic small vessel ischemic change. Mild-moderate, diffuse volume loss. Osseous calvarium grossly intact. 1. Findings compatible with acute on subacute/chronic ischemic change and infarcts in the left MCA territory, with probable petechial hemorrhages, similar to comparison. Clinical correlation and follow-up suggested. 2. Probable chronic ischemic and atrophic changes. Report Dictated on Workstation: [id number] Electronically Signed By: Cirilo Canales MD Electronically Signed Date/Time: 53:43 AM EDT @CTA@ MR brain wo contrast Result Date: 04/22/2025 Patient Name: TOM BOOTH : 1945 Exam Date/Time: 04/22/2025 13:45 Procedure: MR BRAIN WO CONTRAST Ordering Provider: CORDOVA KATHRYN Reason For Exam: Post TNK/Thrombectomy L MCA ischemic stroke MRI BRAIN: CLINICAL INDICATION: Post TNK/Thrombectomy L MCA ischemic stroke. Left middle cerebral artery territory infarct TECHNIQUE:Sagittal T1, coronal T2, transaxial T2, FLAIR, gradient echo and diffusion weighted sequences performed through the brain COMPARISON: None. FINDINGS: Ventricular system and Extra-axial spaces: Generalized enlargement of the ventricles and sulci is noted without extracerebral collection with mass eff ect. Cerebral and cerebellar parenchyma: There are numerous scattered foci of restricted diffusion with T2 and FLAIR hyperintensity extending from the left anterior temporal lobe and insular cortex, left basal ganglia, left periventricular region and left frontal and parietal subcortical region peter esponding to end artery distribution of the middle cerebral artery territory. Within the left basalganglia is also a focus of susceptibility artifact over region of up to 1.2 cm, possibly corresponding to acute hemorrhage. There is also a focus adjacent left frontal horn. Brainstem: Normal. Sella turcica and pituitary: Normal. Vascular system: Normal signal void is noted within the major intracranial vessels. Paranasal sinuses: Clear. Mastoid air cells: Normal. Orbits: Normal. Scattered small foci of acute infarct throughout the left middle cerebral artery territory. In one focus within the basal ganglia is probably a superimposed hemorrhagic component. Report Dictated on Electronically Signed By: Piter Waldron MD Electronically Signed Date/Time: 04/22/2025 5:24 PM EDT MRA head showed: Transthoracic echocardiogram (TTE) complete with contrast, bubble, strain, and 3D PRN Result Date: 04/24/2025 Left Ventricle: Left ventricle size is normal. Mildly increased wall thickness. Normal left ventricular systolic function. EF by 2D Simpsons Biplane is 66%. Normal wall motion. Right Ventricle: Rightventricle size is normal. Normal systolic function. Mitral Valve: Mildly thickened leaflets. Mild annular calcification. No stenosis noted. Left Atrium: Left atrium size is normal. Interatrial Septum: No interatrial shunt visualized on color Doppler. Aorta: Mildly dilated sinuses of Valsalva. Sinuses of Valsalva diameter is 3.9 cm. Mildly dilated ascending aorta. Ao ascending diameter is 4.1 cm. No significant valvular abnormalities. No thrombus or other source of embolic event is identified. Study Details: The underlying ECG rhythm was sinus rhythm. Encounter Date: 05/11/25 ECG 12 lead Result Value Heart Rate 80 QRSD Interval 135 QT Interval 411 QTC Interval 474 P Boaz 29 QRS Boaz -10 T Wave Boaz -33 CA Interval 195 Impression Sinus rhythm Right bundle branch block Inferior infarct, age indeterminate Electronically Signed On 05-12-2025 10:56:45 EDT by Ray Huynh CBC: Lab Results Component Value Date WBC 6.6 05/22/2025 RBC 3.39 (L) 05/22/2025 HGB 10.0 (L) 05/22/2025 HCT 30.7 (L) 05/22/2025 MCV 90.6 05/22/2025 MCH 29.5 05/22/2025 MCHC 32.6 05/22/2025 RDW 15.4 (H) 05/22/2025 PLT 232 05/22/2025 MPV 9.7 05/22/2025 CMP: Lab Results Component Value Date NA 139 05/22/2025 NA 140 05/11/2025 K 3.6 05/22/2025 K 3.7 05/11/2025 CL 107 05/22/2025 CO2 22 (L) 05/22/2025 BUN 19 05/22/2025 CREATININE 0.92 05/22/2025 CREATININE 1.2 05/11/2025 GLUCOSE 93 05/22/2025 CALCIUM 8.6 (L) 05/22/2025 BMP: Lab Results Component Value Date NA 139 05/22/2025 NA 140 05/11/2025 K 3.6 05/22/2025 K 3.7 05/11/2025 CL 107 05/22/2025 CO2 22 (L) 05/22/2025 BUN 19 05/22/2025 CREATININE 0.92 05/22/2025 CREATININE 1.2 05/11/2025 CALCIUM 8.6 (L) 05/22/2025 GLUCOSE 93 05/22/2025 PT/INR: Lab Results Component Value Date PROTIME 11.3 05/11/2025 INR 1.1 05/11/2025 PTT: Lab Results Component Value Date APTT 28.9 05/11/2025 [APTT} FLP: Lab Results Component Value Date TRIG 72 04/22/2025 HDL 37 (L) 04/22/2025 LDLCALC 11 04/22/2025 TSH: No results found for: TSH VITAMIN B12: No results found for: [id number] FERRITIN: No results found for: FERRITIN ---- No results found for: PHENYTOIN, PHENOBARB, VALPROATE, CBMZ No components found for: TOPIRANo results found for: OXCARBAZE, OXCARB @[email or web address]@ [facility] glucose [facility] Performed by: [facility], [address] [place] [address], [place] [address] CLIA ID: [id number] ECG 12 lead Sinus rhythm Right bundle branch block Inferior infarct, age indeterminate Electronically Signed On 05-12-2025 10:56:45 EDT by Ray Huynh ECG 12 lead if not already done by Squad Sinus rhythm Multiple premature complexes, vent & supraven Right bundle branch block Compared to ECG 05/11/25 No significant change Electronically Signed On 05-12-2025 03:14:51 EDT by Anselmo Saleh @[facility]@ No results found for: LEVETIRACETA, FERRITIN, CRP, NU, ANCA No results found for: MALDONADO, IMMUNOGLOBUL, OLIGOBANDS No results found for: UEJ90PT, HEPCAB No results found for: CRP, ANATITER, ANCA ASSESSMENT AND PLAN: Diagnosis Plan 1. Ischemic stroke (HCC) 2. OSIEL (obstructive sleep apnea) No new stroke like symptoms; continue with vascular risk factor modifications; ASA 81mg x 2. He still needs PT/OT/ST; he will be receiving therapies at home for now. STOPBANG 01/31; it is medically necessary for him to have sleep study to determine if he has sleep apnea given his recent stroke. He prefers a home sleep study. Patient prefers to follow up with his instrument sterilizer instead of restaurant area director and cryptogenic stroke clinic through [facility]. RTO [address] Natalie Estrada spent 65 minutes caring for this patient today, reviewing labs and records, seeing the patient, documenting in the record and arranging for studies. [1] Current Outpatient Medications: aspirin 81 MG EC tablet, Take 2 tablets (162 mg) by mouth daily. Do not start before May 04, 2025., Disp: , Rfl: atorvastatin (Lipitor) 80 MG tablet, Take 80 mg by mouth daily., Disp: , Rfl: carvedilol (Coreg) 12.5 MG tablet, Take 12.5 mg by mouth 2 times daily (with meals)., Disp: , Rfl: doxazosin (Cardura) 2 MG tablet, Take 2 mg by mouth Nightly., Disp: , Rfl: empagliflozin (Jardiance) 25 MG, Take 25 mg by mouth daily., Disp: , Rfl: evolocumab (Repatha SureClick) 140 MG/ML injection, Inject 140 mg under the skin every 14 (fourteen) days., Disp: , Rfl: ezetimibe (Zetia) 10 MG tablet, Take 10 mg by mouth daily., Disp: , Rfl: glipiZIDE (Glucotrol) 5 MG tablet, Take 5 mg by mouth daily., Disp: , Rfl: losartan (Cozaar) 100 MG tablet, Take 100 mg by mouth daily. (Patient taking differently: Take 50 mg by mouth daily.), Disp: , Rfl: metFORMIN (Glucophage) 850 MG tablet, Take 850 mg by mouth 2 times daily (with meals). (Patient taking differently: Take 850 mg by mouth daily.), Disp: , Rfl: senna-docusate sodium (Senokot-S) 8.6-50 MG tablet, Take 2 tablets by mouth daily., Disp: , Rfl: sertraline (Zoloft) 25 MG tablet, Take 25 mg by mouth daily., Disp: , Rfl: amLODIPine (Norvasc) 10 MG tablet, Take 1 tablet (10 mg) by mouth daily. (Patient not taking: Reported on 06/05/2025), Disp: , Rfl: glipiZIDE XL (Glucotrol XL) 2.5 MG 24 hr tablet, Take 2.5 mg by mouth daily. (Patient not taking: Reported on 06/05/2025), Disp: , Rfl: sodium chloride ([place]) 0.65 % nasal spray, Administer 1 spray into each nostril every 2 hours as needed for congestion., Disp: , Rfl: [2] No family history on file. documented in this [facility]08-11-2025 Instructions* Patient Instructions* CAN Piña CNP - 06/05/2025 1:00 PM EDT Call the sleep lab to schedule home sleep study - [phone] documented in this [facility]07-21-2025 Telephone encounter Note* Telephone Encounter - Amena Macias RN - 05/15/2025 12:08 PM EDT Spoke with and let her know she does not need appointment with us, she can follow up with [id number] Miscellaneous Notes* Telephone Encounter - Amena Macias RN - 05/15/2025 12:08 PM EDT Spoke with and let her know she does not need appointment with us, she can follow up with cardiology at [facility]. * Telephone Encounter - Celia Eaton - 05/15/2025 11:10 AM EDT I s/w Pt's Marzena. Pt is still in [facility] and won't be out until alt least May 24, 2025. She is going to check with rehab of his release date.. Also, pt has a instrument sterilizer at [place] and willbe following up with them. Not sure if they want to do the EM or wait to talk to his instrument sterilizer. Does not want to see our EP * Telephone Encounter - Celia Eaton - 05/08/2025 10:48 AM EDT I LVM for pt's to call me back to schedule EM & appt with Dr. Yancey * Telephone Encounter - CAN Parker CNP - 05/02/2025 11:03 AM EDT EM ordered Please schedule follow up with Dr Yancey * Telephone Encounter - CAN Espinoza CNP - 05/02/2025 8:07 AM EDT Patient was referred to the cryptogenic stroke program by neurology he was discharged to [facility] on 05/01/2025 and will need a 30-day event monitor and follow-up with Dr. Yancey. His Marzena Booth is his contact center rep she can be reached at [phone]. documented in this [facility]ST[facility] [id number] Telephone encounter Note* Telephone Encounter - Celia Eaton - 05/15/2025 11:10 AM EDT I s/w Pt's Marzena. Pt is still in [facility] and won't be out until alt least May 24, 2025. She is going to check with rehab of his release date.. Also, pt has a instrument sterilizer at [place] and willbe following up with them. Not sure if they want to do the EM or wait to talk to his instrument sterilizer. Does not want to see our EP [id number] Nurse Note* Madan Logan RN - 05/12/2025 4:52 PM EDT Report called to Tyrone at [facility]. [facility] [id number] Nurse Note* Madan oLgan RN - 05/12/2025 4:52 PM EDT Report called to Tyrone at [facility]. * Madan Logan RN - 05/12/2025 4:30 PM EDT IV and tele removed. Belongings gathered. Currently waiting on transport to [facility] documented in this [facility]07-18-2025 Nurse Note* Madan Logan RN - 05/12/2025 4:30 PM EDT IV and tele removed. Belongings gathered. Currently waiting on transport to [id number] History of Present illness Narrative* Joyce Delgado PT - 05/12/2025 1:50 PM EDT Images from the original note were not included. PHYSICAL THERAPY [facility] Name/MRN: Tom Booth ([id number]) Date: 05/12/2025 Received orders for PT Eval and Treat per Emani Index. Emani Index currently not completed. Will hold PT eval until Emani Index is documented or regular PT eval and treat orders placed. (Patient currently on 4W; contacted Dr. Barriga to inform and request regular eval and treat orders if needed). Joyce Delgado PT * Brianna Barriga MD - 05/12/2025 10:08 AM EDT Hospitalist Progress Note Subjective: Admit Date: 05/11/2025 PCP: Bre Flores DO Room#: W4-879/W4-973 A Chief Complaint Patient presents with Facial Droop Pt has hx of right side weakness and right facial droop, hx stroke. Patient is coming from [facility] for worsening facial droop and drooling, LKW 0858. Brief Hospital course: Tom is a 79 y.o. 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 The patient has been at. Inpatient rehab since his stroke (initial [facility] 12, now at 2). On 05/11 the nurse was giving him meds when he had a brief episode of choking and difficulty swallowing his meds. He was briefly in distress with difficulty breathing and his systolic blood pressure went up to the 180s. He was not able to communicate at that time so EMS was called and was brought to the ED. In the ED vital signs remarkable for pulse of 95 which later improved to 85 and initial blood pressure 165/89 which improved to 146/82. His symptoms resolved. Had a repeat modified barium swallow in the ED which was unremarkable and he was cleared for diet. His troponins were cycled with values of 9, 33, then 54. Neurocritical care team seen the patient, recommendations noted, appreciated Cardiology seen the patient, recommendations noted, appreciated Patient will be discharged back to rehab today Interval History: 05/12/2025-No overnight issues. Patient is seen and examined He is comfortably resting in his bed He reports no new acute complaints is at bedside, answered all questions Vital stable Labs reviewed potassium 3.4, creatinine normal, WBC 10.6 Case and plan discussed with patient and bedside nurse. All questions answered. Past Medical History: Medical History[1] Adult diet Regular 24HR INTAKE/OUTPUT: Intake/Output Summary (Last 24 hours) at 05/12/2025 1009 Last data filed at 05/11/2025 2128 Gross per 24 hour Intake 326.67 ml Output 100 ml Net 226.67 ml LABS: CBC: Recent Labs 05/11/25 0500 05/11/25 0945 05/12/25 0414 WBC 8.5 9.1 7.3 RBC 4.21* 4.11* 3.56* HGB 12.2* 12.0* 10.6* HCT 37.4* 36.0* 31.8* MCV 88.8 87.6 89.3 RDW 14.5 14.5 14.6 PLT 341 350 280 BMP: Recent Labs 05/10/25 0530 05/11/25 0500 05/11/25 0958 05/12/25 0414 NA 137 139 140 140 K 3.1* 3.6 3.7 3.4* CL 108* 108* -- 112* CO2 24 21* -- 22* BUN 26* 23 -- 20 CREATININE 1.08 1.11 1.2 0.99 GLUCOSE 108 113 -- 104 CALCIUM 8.8 9.2 -- 8.2* ANIONGAP 5 10 -- 6 LIVER PROFILE:No results for input(s): AST, ALT, BILITOT, ALKPHOS, PROT in the last 72 hours. No lab exists for component: LABALBU PT/INR: Recent Labs 05/11/25 0945 PROTIME 11.3 INR 1.1 CARDIAC ENZYMES: No results for input(s): TROPONINI in the last 72 hours. Procalcitonin: No results found for: PROCAL COVID-19 PCR: No results for input(s): COVID19 in the last 72 hours. Objective: Vitals: BP 136/70 (BP Location: Left arm, Patient Position: Lying) Pulse 89 Temp 36.6 C (97.9 F) (Temporal) Resp 19 Ht 5' 10 (1.778 m) Wt 158 lb 3.2 oz (71.8 kg) SpO2 93% BMI 22.70 kg/m Pulse Ox: SpO2 Av.4 % Min: 93 % Max: 98 % Supplemental O2: Physical Exam HENT: Head: Normocephalic and atraumatic. Mouth/Throat: Mouth: Mucous membranes are moist. Cardiovascular: Rate and Rhythm: Normal rate and regular rhythm. Pulmonary: Effort: Pulmonary effort is normal. Abdominal: Palpations: Abdomen is soft. Skin: General: Skin is warm and dry. Neurological: Mental Status: He is alert. Psychiatric: Mood and Affect: Mood normal. Medications: Scheduled PRN Scheduled Meds[2] PRN Meds[3] Continuous Continuous Meds[4] Assessment Data: (CAT1) Reviewed 2 notes from different specialty or health system (each=1). (CAT1) Reviewed 3 or more labs/studies ordered by another provider not previously counted (each=1, panels count as 1). (CAT1) Ordered 3 or more new labs and/or studies (each=1, panels count as 1). (LOW: 2x CAT1 or independent historian MOD: 3x CAT1 or 1x CAT3 EXTENSIVE: 3x CAT1 and 1x CAT3) Acute, acute on chronic, unstable/uncontrolled chronic problems/diagnoses: Elevated troponin Choking episode Speech changes now resolved Stable chronic problems affecting care, new non-acute diagnoses: Left MCA acute embolic infarct with petechial hemorrhagic transformation PAF not currently on DOAC Hypertension Hyperlipidemia Type 2 diabetes mellitus with hyperglycemia NAGMA likely due to NS infusion Hypocalcemia Leukocytosis Normocytic anemia CAD Hx CABG OSIEL HFpEF Medical History[5] Plan As a result of the above findings & factors, the following mgmt was pursued: - Neurocritical care team seen the patient, recommendations noted, appreciated - Cardiology consulted, seen the patient, recommendations noted, appreciated - consult cardiology -Continue home medications -Continue 2x baby aspirin dose as recommended by neurology last admission - PT/OT - am labs, replace lytes prn - PT/OT/CM/SW - delirium precautions: increase activity, limit nighttime disturbances, and avoid anticholinergic meds, benzos, etc - DVT prophylaxis: enoxaparin and encourage ambulation Complexity: Acute illness or injury posing a threat to life or body function (HIGH). Risk: Advance Directive: Full Code Anticipated Discharge - Date -today - Location - Acute Rehab - Pending the following -DC today back to rehab Total time spent (which include face to face and non face to face encounters) : More than 31 minutes Extended Emergency Contact Information Primary Emergency Contact: Marzena Booth Mobile Relation: Spouse Secondary Emergency Contact: Maxi Booth Mobile Relation: Hayder Beejosé Gio Barriga MD Division of Hospital Medicine Inpatient Medical Services/[facility] [place] [1] No past medical history on file. [2] amLODIPine, 10 mg, Oral, Daily aspirin, 162 mg, Oral, Daily atorvastatin, 80 mg, Oral, Daily carvedilol, 12.5 mg, Oral, BID WC dapagliflozin, 5 mg, Oral, Daily doxazosin, 2 mg, Oral, Nightly enoxaparin, 40 mg, SubCUTAneous, Daily ezetimibe, 10 mg, Oral, Daily glipiZIDE, 2.5 mg, Oral, qAM AC losartan, 100 mg, Oral, Daily metFORMIN, 850 mg, Oral, BID WC senna-docusate sodium, 2 tablet, Oral, Daily [3] PRN medications: acetaminophen OR acetaminophen, melatonin, ondansetron ODT OR ondansetron, polyethylene glycol (PEG) 3350, sodium chloride [4] [5] No past medical history on file. * Anais Gómez INTERNAL CONTROLS CONSULTANT - 05/11/2025 2:43 PM EDT Images from the original note were not included. Speech-Language Pathology SPEECH LANGUAGE PATHOLOGY [facility] Modified Barium Swallow Study Patient Name: Tom Booth Evaluation Date: 05/11/2025 Date of : 1945 Admission Date: 05/11/2025 9:36 AM Age: 79 y.o. Room/Bed: IMPRESSION: The patient presents with mild oral phase dysphagia associated with reduced oral bolus control and oral residue. There is mild - moderate pharyngeal phase dysphagia associated with base of tongue weakness, pharyngeal wall weakness, reduced hyolaryngeal excursion, large bilateral pharyngoceles, and cervical osteophytes. There was observed laryngeal penetration with thin liquid, (cup edge, straw), no aspiration. RECOMMENDATION: Recommend Regular solids and Thin liquids and meds whole in puree and the following precautions: - Upright positioning for all PO intake - Small bites/sips - Swallow x 2 per bolus - Single sips Penetration-Aspiration Scale: 2. Contrast enters the airway, remains above the vocal folds, and is ejected from the airway (not seen in the airway at the end of the swallow). Pt would benefit from skilled acute INTERNAL CONTROLS CONSULTANT services to ensure patient tolerance of the recommended diet, oropharyngeal strengthening, and formal instruction of swallow strategies. D/C Recommendations: dysphagia therapy at [facility] General Initial MBS completed to assess the efficiency of his swallow function, rule out aspiration, and make recommendations regarding safe dietary consistencies, effective compensatory strategies, and safeeating environment. Subjective: Patient was alert, cooperative, and followed simple directives. Radiologist: Hetal/Patrick Prior MBSS?: No Baseline Diet: regular with thin liquids Current diet: Dietary Orders (From admission, onward) Start Ordered 05/11/25 1122 Adult diet Regular Diet effective now Question: Diet type Answer: Regular 05/11/25 1121 Textures tested: - thin liquid, (cup edge, straw) - puree, (teaspoon) - regular solids Patient position: lateral Past Medical History: Medical History[1] Past Surgical History: Surgical History[2] Admission Diagnosis: Patient Active Problem List Diagnosis Date Noted Acute ischemic left MCA stroke (HCC) 04/22/2025 Pain: Unable to state but no evidence of same Reason for current admission: Tom Booth is a 79 y.o. who presents to the emergency department with concern for stroke. Patient is currently staying in acute rehab after having a stroke on 04/21/2025 for which he received TNK. Nursing staff today noticed that his previous deficits which were right sided were worse today. They noticed worsening right-sided facial droop with drooling, right upper extremity weakness and some confusion. Patient is having word finding difficulty, appears to beoriented however is unable to tell me what is going on, gets frustrated because he cannot find the right word. He denies any pain including chest pain, shortness of breath, abdominal pain, nausea, vom iting, diarrhea or any other specific complaints. Oral Phase There is reduced oral bolus containment with thin liquid via straw resulting in spillage to the level of the pyriforms. Puree and regular solids spilled to the valleculae prior to the swallow. Mastication, bolus formation and AP transit are adequate. There is oral residue that improves with re-swallows. Pharyngeal Phase Cervical osteophytes noted at C 5-7. The onset of the swallow is timely. Hyolaryngeal excursion is reduced. Epiglottic deflection is complete. There is mild-moderate residue in the valleculae and pyriforms associated with tongue base weakness, pharyngeal wall weakness, and large bilateral pharyngoceles. Re- swallows improved pharyngeal clearance. There is penetration into the laryngeal vestibule above the level of the vocal cords with thin liquid via cup and straw. There is no vocal cord penetration or aspiration with any PO presented. Esophageal Phase The esophagus was not visualized below the level of the UES. Noted: N/A Education The preliminary results of this evaluation were briefly shared with the patient. Goals Patient Stated Goal: none stated Encounter Problems Encounter Problems (Active) Swallowing Patient will demonstrate safe swallowing Intervention/techniques Start: 05/11/25 Expected End: 05/25/25 Patient will complete oropharyngeal strengthening exercises to improve swallow function Start: 05/11/25 Expected End: 05/25/25 Patient will tolerate recommended food and liquid consistencies without clinical signs and symptomsof aspirations Start: 05/11/25 Expected End: 05/25/25 Encounter Problems (Resolved) Swallowing Patient will participate in instrumental assessment of swallowing as appropriate (Completed) Start: 05/11/25 Expected End: 05/25/25 Resolved: 05/11/25 Therapy Time INTERNAL CONTROLS CONSULTANT Individual Minutes Time In: 1335 Time Out: 1350 Minutes: 15 Anais Gómez MA, CCC/INTERNAL CONTROLS CONSULTANT [1] No past medical history on file. [2] No past surgical history on file. * Christelle Chavarria - 05/11/2025 11:08 AM EDT Images from the original note were not included. Speech-Language Pathology SPEECH LANGUAGE PATHOLOGY [facility] Bedside Swallow Evaluation Patient Name: Tom Booth Evaluation Date: 05/11/2025 Date of : 1945 Admission Date: 05/11/2025 9:36 AM Age: 79 y.o. Room/Bed: IMPRESSION: S/s oropharyngeal dysphagia. + overt clinical s/s pulmonary compromise with PO. Risk factors for aspiration include hx stroke, right sided weakness. RECOMMENDATION: Recommend Regular solids and Thin liquids and meds as tolerated and the following precautions: - Upright positioning for all PO intake - Slow rate of intake - Small bites/sips Dysphagia NOMS: Level 6: Swallowing is safe, and individual eats and drinks independently and requires no more than minimal cueing. Individual usually self- cues when difficulty occurs. May need to avoid specific food items (e.g., popcorn) or require additional time (due to difficulty with mastication). Recommend modified barium swallow study (MBSS) to further assess. Subjective Patient alert and cooperative. Seen upright in bed. Answers all basic questions with clear vocal quality. Follows all basic commands. Visitors at bedside - Spouse. Spouse reports he choked on his pills this morning. Spoke with THI Mohan who cleared pt to be evaluated. Dysphagia History: Retrospective chart review revealed a history of INTERNAL CONTROLS CONSULTANT services as follows: no dysphagia therapy, but history of speech therapy services targeting language. Baseline Diet: regular Current Diet: NPO at time of evaluation Dietary Orders (From admission, onward) Start Ordered 05/11/25 1109 Adult diet Regular Diet effective now Question: Diet type Answer: Regular 05/11/25 1108 Tube Feeding: no Tracheostomy: no Recent Chest Xray/CT of Chest: XR chest 2 views 05/11/2025 Impression No acute consolidative process. Report Dictated on Electronically Signed By: Jorge Silva DR Electronically Signed Date/Time: 05/11/2025 11:02 AM EDT Oxygen: Oxygen Therapy: None (Room air) Past Medical History: Medical History[1] Past Surgical History: Surgical History[2] Admission Diagnosis: Patient Active Problem List Diagnosis Date Noted Acute ischemic left MCA stroke (HCC) 04/22/2025 History of Present Illness: Tom Booth is a 79 y.o. who presents to the emergency departmentwith concern for stroke. Patient is currently staying in acute rehab after having a stroke on 04/21/2025 for which he received TNK. Nursing staff today noticed that his previous deficits which were right sided were worse today. They noticed worsening right-sided facial droop with drooling, right upper extremity weakness and some confusion. Patient is having word finding difficulty, appears to be oriented however is unable to tell me what is going on, gets frustrated because he cannot find the right word. He denies any pain including chest pain, shortness of breath, abdominal pain, nausea, vomit ing, diarrhea or any other specific complaints. Patient Complaint: none stated Pain: Pt denies any current pain. PPE Worn: gloves Objective Bedside swallow eval completed. Oral Motor Mechanism Adequate structure in lingual, labial, and buccal musculature. General right sided weakness noted. Unable to perform volitional swallow. Adequate dentition. Oral Hygiene: moist, clean Swallowing Examination PO Trials - thin liquid, (cup edge, straw) - puree, (teaspoon) - soft and bite sized solids - regular solids Oral Phase Patient drooling out of right side of mouth. Patient presents with adequate oral receipt of each bolus. There is no anterior bolus loss. There is appropriate bolus containment for each tested texturein the oral cavity despite right sided deficits. Mastication appeared complete, organized, and timely. Oral transit time appears WFL. There is no oral residue. Pharyngeal Phase Hyolaryngeal excursion clinically appears adequate and timely per palpation. 1-2 swallows palpated per bolus, likely indicative of adequate pharyngeal clearance. Patient had one delayed unproductive cough after trial of soft and bite-sized solid. No other overt clinical s/s airway penetration as evidenced by no throat clear, and no change in vocal quality. Given ongoing concerns for dysphagia at facility, feel MBSS is indicated. Education Education Given: diet recommendations, potential for additional diagnostic testing Given To: patient, spouse, and RN Response: verbalizes understanding Goals Patient Stated Goal: none stated Encounter Problems Encounter Problems (Active) Swallowing Patient will participate in instrumental assessment of swallowing as appropriate (Initiated) Start: 05/11/25 Expected End: 05/25/25 Therapy Time INTERNAL CONTROLS CONSULTANT Individual Minutes Time In: 1057 Time Out: 1106 Minutes: 9 KRISTIN Thornton Family Welfare Social Work Professor [1] No past medical history on file. [2] No past surgical history on file. Cosigned by LUL Schuster at 05/11/2025 11:19 AM EDT documented in this [facility]07-18-2025 Plan of care note* Care Plan - Madan Logan RN - 05/12/2025 11:37 AM EDT Problem: Knowledge Deficit Goal: Patient/family/caregiver demonstrates understanding of disease process, treatment plan, medications, and discharge instructions Outcome: Adequate for Discharge Problem: Potential for Falls Goal: I will remain free of falls Outcome: Adequate for Discharge Problem: Discharge Barriers Goal: My discharge needs are met Outcome: Adequate for Discharge [id number] Miscellaneous Notes* Care Plan - Madan Logan RN - 05/12/2025 11:37 AM EDT Problem: Knowledge Deficit Goal: Patient/family/caregiver demonstrates understanding of disease process, treatment plan, medications, and discharge instructions Outcome: Adequate for Discharge Problem: Potential for Falls Goal: I will remain free of falls Outcome: Adequate for Discharge Problem: Discharge Barriers Goal: My discharge needs are met Outcome: Adequate for Discharge * Care Coordination - Analia Calvert - 05/12/2025 11:36 AM EDT Return referral placed to [facility] via [facility] per TCC request. Await review and response regarding ability to accept. TCC notified. * Care Coordination - Christelle Bravo RN - 05/12/2025 11:24 AM EDT Received a message from Philomena from [facility] stating they can take the pt back today after 1pm with no auth. [facility] tasked to send referral to [facility] and to send the MAR. Varun Flor claimed transport for 1pm. Family/ pt, bedside RN and Philomena notified. Varun Flor just updated transport with a new time of 5pm. Pt, nurse and Philomena notified. * Care Coordination - Christelle Bravo RN - 05/12/2025 10:42 AM EDT Care Management Progress Note Short Medical why still here: Pt adm for tx/ eval of facial drop/ choking on pill from [facility]. NSTEMI cancelled. CT head/ CTA head neck/ XR chest completed. Mag 1.1, K 3.4.Neuro s/o. [facility] liaison Philomena checking if they can take pt back today. Pt and family updated. Planned Discharge Disposition: Inpatient Rehab Facility Barriers/Today we still Wait: Clinical stability, Custom Seamstress recommendations (comment), Symptomaticcontrol Length of Stay (Days): 1 GMLOS: No GMLOS Documented documented in this [facility]07-18-2025 Note* Care Coordination - Analia Calvert - 05/12/2025 11:36 AM EDT Return referral placed to [facility] via [facility] per TCC request. Await review and response regarding ability to accept. TCC notified. [id number] [facility]* Care Coordination - Analia Calvert - 05/12/2025 11:36 AM EDT Return referral placed to [facility] via [facility] per TCC request. Await review and response regarding ability to accept. TCC notified. [id number] NoteReturn referral placed to [facility] via [facility] per TCC request. Await review and response regarding ability to accept. TCC notified. [facility]07-18-2025 Note* Care Coordination - Christelle Bravo RN - 05/12/2025 11:24 AM EDT Received a message from Philomena from [facility] stating they can take the pt back today after 1pm with no auth. [facility] tasked to send referral to [facility] and to send the MAR. Varun Flor claimed transport for 1pm. Family/ pt, bedside RN and Philomena notified. Varun Flor just updated transport with a new time of 5pm. Pt, nurse and Philomena notified. [facility] [id number] Note* Care Coordination - Christelle Bravo RN - 05/12/2025 11:24 AM EDT Received a message from Philomena from [facility] stating they can take the pt back today after 1pm with no auth. [facility] tasked to send referral to [facility] and to send the MAR. Varun Flor claimed transport for 1pm. Family/ pt, bedside RN and Philomena notified. Varun Flor just updated transport with a new time of 5pm. Pt, nurse and Philomena notified. [facility] [id number] [facility]07-18-2025 Hospital course Narrative* Brianna Barriga MD - 05/12/2025 11:03 AM EDT Discharge Summary Tom Booth : 1945 ADMIT DATE: 05/11/2025 DISCHARGE DATE: 05/12/2025 PRIMARY CARE PHYSICIAN: Bre Flores VISIT STATUS: Admission CODE STATUS: Full Code DISCHARGE DIAGNOSES: Principal Problem: NSTEMI (non-ST elevated myocardial infarction) (HCC) HOSPITAL COURSE: Tom is a 79 y.o. 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 The patient has been at. Inpatient rehab since his stroke (initial [facility] 12, now at 2). On 05/11 the nurse was giving him meds when he had a brief episode of choking and difficulty swallowing his meds. He was briefly in distress with difficulty breathing and his systolic blood pressure went up to the 180s. He was not able to communicate at that time so EMS was called and was brought to the ED. In the ED vital signs remarkable for pulse of 95 which later improved to 85 and initial blood pressure 165/89 which improved to 146/82. His symptoms resolved. Had a repeat modified barium swallow in the ED which was unremarkable and he was cleared for diet. His troponins were cycled with values of 9, 33, then 54. Neurocritical care team seen the patient, recommendations noted, appreciated Cardiology seen the patient, recommendations noted, appreciated Patient will be discharged back to rehab today Interval History: 05/12/2025-No overnight issues. Patient is seen and examined He is comfortably resting in his bed He reports no new acute complaints is at bedside, answered all questions Vital stable Labs reviewed potassium 3.4, creatinine normal, WBC 10.6 Case and plan discussed with patient and bedside nurse. All questions answered. Past Medical History: [Medical History] [Medical History] Past Medical History No past medical history on file. Adult diet Regular 24HR INTAKE/OUTPUT: Intake/Output Summary (Last 24 hours) at 05/12/2025 1009 Last data filed at 05/11/2025 2128 Gross per 24 hour Intake 326.67 ml Output 100 ml Net 226.67 ml LABS: CBC: Recent Labs 05/11/25 0500 05/11/25 0945 05/12/25 0414 WBC 8.5 9.1 7.3 RBC 4.21* 4.11* 3.56* HGB 12.2* 12.0* 10.6* HCT 37.4* 36.0* 31.8* MCV 88.8 87.6 89.3 RDW 14.5 14.5 14.6 PLT 341 350 280 BMP: Recent Labs 05/10/25 0530 05/11/25 0500 05/11/25 0958 05/12/25 0414 NA 137 139 140 140 K 3.1* 3.6 3.7 3.4* CL 108* 108* -- 112* CO2 24 21* -- 22* BUN 26* 23 -- 20 CREATININE 1.08 1.11 1.2 0.99 GLUCOSE 108 113 -- 104 CALCIUM 8.8 9.2 -- 8.2* ANIONGAP 5 10 -- 6 LIVER PROFILE:No results for input(s): AST, ALT, BILITOT, ALKPHOS, PROT in the last 72 hours. No lab exists for component: LABALBU PT/INR: Recent Labs 05/11/25 0945 PROTIME 11.3 INR 1.1 CARDIAC ENZYMES: No results for input(s): TROPONINI in the last 72 hours. Procalcitonin: No results found for: PROCAL COVID-19 PCR: No results for input(s): COVID19 in the last 72 hours. Objective: Vitals: BP 136/70 (BP Location: Left arm, Patient Position: Lying) Pulse 89 Temp 36.6 C (97.9 F) (Temporal) Resp 19 Ht 5' 10 (1.778 m) Wt 158 lb 3.2 oz (71.8 kg) SpO2 93% BMI 22.70 kg/m Pulse Ox: SpO2 Av.4 % Min: 93 % Max: 98 % Supplemental O2: Physical Exam HENT: Head: Normocephalic and atraumatic. Mouth/Throat: Mouth: Mucous membranes are moist. Cardiovascular: Rate and Rhythm: Normal rate and regular rhythm. Pulmonary: Effort: Pulmonary effort is normal. Abdominal: Palpations: Abdomen is soft. Skin: General: Skin is warm and dry. Neurological: Mental Status: He is alert. Psychiatric: Mood and Affect: Mood normal. Medications: Scheduled PRN [Scheduled Meds] [Scheduled Meds] amLODIPine, 10 mg, Oral, Daily aspirin, 162 mg, Oral, Daily atorvastatin, 80 mg, Oral, Daily carvedilol, 12.5 mg, Oral, BID WC dapagliflozin, 5 mg, Oral, Daily doxazosin, 2 mg, Oral, Nightly enoxaparin, 40 mg, SubCUTAneous, Daily ezetimibe, 10 mg, Oral, Daily glipiZIDE, 2.5 mg, Oral, qAM AC losartan, 100 mg, Oral, Daily metFORMIN, 850 mg, Oral, BID WC senna-docusate sodium, 2 tablet, Oral, Daily [PRN Meds] [PRN Meds] PRN medications: acetaminophen OR acetaminophen, melatonin, ondansetron ODT OR ondansetron,polyethylene glycol (PEG) 3350, sodium chloride Continuous [Continuous Meds] [Continuous Meds] Assessment Data: (CAT1) Reviewed 2 notes from different specialty or health system (each=1). (CAT1) Reviewed 3 or more labs/studies ordered by another provider not previously counted (each=1, panels count as 1). (CAT1) Ordered 3 or more new labs and/or studies (each=1, panels count as 1). (LOW: 2x CAT1 or independent historian MOD: 3x CAT1 or 1x CAT3 EXTENSIVE: 3x CAT1 and 1x CAT3) Acute, acute on chronic, unstable/uncontrolled chronic problems/diagnoses: Elevated troponin Choking episode Speech changes now resolved Stable chronic problems affecting care, new non-acute diagnoses: Left MCA acute embolic infarct with petechial hemorrhagic transformation PAF not currently on DOAC Hypertension Hyperlipidemia Type 2 diabetes mellitus with hyperglycemia NAGMA likely due to NS infusion Hypocalcemia Leukocytosis Normocytic anemia CAD Hx CABG OSIEL HFpEF [Medical History] [Medical History] Past Medical History No past medical history on file. Plan As a result of the above findings & factors, the following mgmt was pursued: - Neurocritical care team seen the patient, recommendations noted, appreciated - Cardiology consulted, seen the patient, recommendations noted, appreciated - consult cardiology -Continue home medications -Continue 2x baby aspirin dose as recommended by neurology last admission - PT/OT SIGNIFICANT DIAGNOSTIC STUDIES: Radiology Results (last 21 days) Procedure Component Value Units Date/Time FL modified barium with video and speech [[id number]] Collected: 05/11/251427 Order Status: Completed Updated: 05/11/251431 Narrative: [facility] 1945 [id number] Exam Date/Time: 05/11/2025 13:31 Procedure: FL MODIFIED BARIUM WITH VIDEO AND SPEECH Ordering Provider: VILLATORO ANDREW Reason For Exam: Aspiration MODIFIED BARIUM SWALLOW (COOKIE SWALLOW) CLINICAL INDICATION: Dysphagia. Cough with anything by mouth. COMPARISON: None. FLUOROSCOPY DOSE: james Whitman= 14.31 mGy TECHNIQUE: The procedure was performed in conjunction with speech therapy. Barium mixtures of various consistencies were given under fluoroscopy with the patient in the sitting lateral position. FINDINGS: Preparatory phase shows decreased bolus formation. Oral phase shows oral residuals with spillage to the valleculae and piriforms. Pharyngeal phase shows reduced laryngeal elevation, a weak tongue base, a weak pharyngeal wall withvallecular and piriform residuals. Coating of the back the epiglottis is observed. There is no vocal cord penetration or airway aspiration. A small pharyngocele and cervical osteophytes are noted. Impression: No vocal cord penetration or airway aspiration. Please refer to the speech pathologist's report for additional comments and recommendation. Report Dictated on Electronically Signed By: Lexii Fong MD Electronically Signed Date/Time: 05/11/2025 2:31 PM EDT XR chest 2 views [[id number]] Collected: 05/11/25 1057 Order Status: Completed Updated: 05/11/25 1103 Narrative: [facility]OTH : 1945 [id number] Exam Date/Time: 05/11/2025 10:56 Procedure: XR CHEST 2 VIEWS Ordering Provider: VILLATORO ANDREW Reason For Exam: Aspiration Clinical History: Aspiration Comparison: 04/22/2025 Technique: PA and lateral radiographs were obtained of the chest. Findings: Median sternotomy wires and mediastinal surgical clips with findings suggestive of coronary artery bypass. Probable extra vascular cardiac pacemaker leads. The heart size and mediastinal contours are normal. Pulmonary vascularity is normal and there is nopneumothorax. The lungs are clear with no acute infiltrate or effusion. No displaced rib fractures seen. Impression: No acute consolidative process. Report Dictated on Electronically Signed By: Jorge Silva DR Electronically Signed Date/Time: 05/11/2025 11:02 AM EDT CTA head neck angio w and wo IV contrast [[id number]] Collected: 05/11/25 0952 Order Status: Completed Updated: 05/11/25 1021 Narrative: Patient Name: TOM BOOTH : 1945 [facility]#: [id number] Exam Date/Time: 05/11/2025 09:49 Procedure: CT HEAD NECK ANGIO W AND WO IV CONTRAST Ordering Provider: YATES MARK Reason For Exam: Neuro deficit, acute, stroke suspected EXAM TYPE: CT HEAD WO IV CONTRAST, CT HEAD NECK ANGIO W AND WO IV CONTRAST EXAM DATE AND TIME: 05/11/2025 9:49 AM EDT INDICATION: Neurologic deficit, weakness COMPARISON: None available. TECHNIQUE: Noncontrast CT head was obtained. Thin section CT angiography from the aortic arch to the skull base was performed for CT angiography neck and from the skull base to vertex for CT angiography head, following the administration of intravenous contrast. MIP and volume rendered reformats were obtained using a separate workstation. Review of the axial source data and the reconstructed images was performed. A total of 75 mL Isovue 370 IV contrast was administered for intravenous contrast. FINDINGS: Noncontrast CT head: Redemonstration of patchy hypodensity within the left basal ganglia and subinsular region. Chronic right cerebellar infarct. There is no CT evidence of an acute intracranial hemorrhage, territorial infarction, midline shift,mass effect, or extra-axial collection. The calderon-white differentiation remains preserved and the basal cisterns are patent. Patchy hypodensity is seen within periventricular white matter, suggestive of chronic small vessel ischemic changes. Ventricles are appropriate in size for the patient's age and level of parenchymal volume. The osseous structures are unremarkable without evidence of a fracture. Mild mucosal thickening of the maxillary sinuses. Mastoid air cells remain well aerated. Improvement of hyperdense fluid collection along the right ocular globe which is now not well visualized, may be isodense subacute blood. ASPECTS SCORE: 10 CTA HEAD: ANTERIOR CIRCULATION Right Cavernous Carotid Artery: Patent. No focal stenosis, segmental occlusion or aneurysm. Right Middle Cerebral Artery: Patent. No focal stenosis, segmental occlusion or aneurysm. Right Anterior Cerebral Artery: Patent. No focal stenosis, segmental occlusion or aneurysm. Left Cavernous Carotid Artery: Patent with mild to moderate multifocal narrowing of the superior segment branches Left Middle Cerebral Artery: Patent. No focal stenosis, segmental occlusion or aneurysm. Left Anterior Cerebral Artery: Patent. No focal stenosis, segmental occlusion or aneurysm. Anterior Communicating Artery: Patent Posterior Communicating: Not Visualized POSTERIOR CIRCULATION Right Vertebral Artery: Patent. No focal stenosis, segmental occlusion, dissection, or aneurysm. Left Vertebral Artery: Patent. No focal stenosis, segmental occlusion, dissection, or aneurysm. Basilar Artery: Patent. No focal stenosis, segmental occlusion, or aneurysm. Right Posterior Cerebral Artery: Patent. No focal stenosis, segmental occlusion, dissection, or aneurysm. Left Posterior Cerebral Artery: Patent. No focal stenosis, segmental occlusion, dissection, or aneurysm. CTA NECK: AORTIC ARCH: Three-vessel. BRACHIOCEPHALIC ORIGIN AND RIGHT COMMON CAROTID ORIGIN: Patent without significant stenosis. RIGHT COMMON CAROTID ARTERY: Patent with no hemodynamically significant stenosis. RIGHT CAROTID BIFURCATION/PROX INT CAROTID ARTERY: Moderate atherosclerotic plaque. Less than 10 percent stenosis by NASCET criteria. CERVICAL SEGMENT RIGHT CAROTID ARTERY: Patent with no hemodynamically significant stenosis. LEFT COMMON CAROTID: Patent with no hemodynamically significant stenosis. LEFT CAROTID BIFURCATION/PROX LEFT INT CAROTID: Mild plaque within the carotid bulb. Less than 10 percent stenosis by NASCET criteria. CERVICAL SEGMENT LEFT INTERNAL CAROTID: Patent with no hemodynamically significant stenosis. RIGHT VERTEBRAL ARTERY:Patent with no hemodynamically significant stenosis or dissection. LEFT VERTEBRAL ARTERY:Patent with no hemodynamically significant stenosis or dissection. ACCESSORY STRUCTURES: Asymmetric prominence of the right tongue base. Medialization of the left vocal cord. There is no cervical lymphadenopathy. The airways are patent and the lung apices are clear.Straightening of the normal cervical lordosis with multilevel degenerative changes of the cervical spine. 1.7 x 1.0 cm nodular density along the posterior inferior right thyroid, which may be extrathyroidal no nodule or parathyroid adenoma. Partially visualized median sternotomy wires. Impression: 1. No acute intracranial hemorrhage or territorial infarct. 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 2. No large vessel occlusion seen in the head or neck. Mild to moderate multifocal narrowing in theleft MCA M2 and M3 superior segment branches. 3. Nonspecific asymmetric prominence of the right tongue base, which may be due to neurologic deficit among other possibilities. Recommend correlation with physical examination. 4. 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 5. 1.7 x 1.0 cm nodular density along the posterior inferior right thyroid, which may be extrathyroidal no nodule or parathyroid adenoma. Ultrasound and/or nuclear medicine parathyroid scan could be considered for further evaluation as clinically warranted. CRITICAL TEST RESULT COMMUNICATION: Critical findings discussed with Dr. Cueva at 05/11/2025 0956 AM EDT. Report Dictated on Electronically Signed By: Jorge Silva DR Electronically Signed Date/Time: 05/11/2025 10:[address] head wo IV contrast [[id number]] Collected: 05/11/25 0952 Order Status: Completed Updated: 05/11/25 1021 Narrative: [facility]: [facility] BOOTH : 1945 [id number] Exam Date/Time: 05/11/2025 09:49 Procedure: CT HEAD WO IV CONTRAST Ordering Provider: YATES MARK Reason For Exam: Neuro deficit, acute, stroke suspected EXAM TYPE: CT HEAD WO IV CONTRAST, CT HEAD NECK ANGIO W AND WO IV CONTRAST EXAM DATE AND TIME: 05/11/2025 9:49 AM EDT INDICATION: Neurologic deficit, weakness COMPARISON: None available. TECHNIQUE: Noncontrast CT head was obtained. Thin section CT angiography from the aortic arch to the skull base was performed for CT angiography neck and from the skull base to vertex for CT angiography head, following the administration of intravenous contrast. MIP and volume rendered reformats were obtained using a separate workstation. Review of the axial source data and the reconstructed images was performed. A total of 75 mL Isovue 370 IV contrast was administered for intravenous contrast. FINDINGS: Noncontrast CT head: Redemonstration of patchy hypodensity within the left basal ganglia and subinsular region. Chronic right cerebellar infarct. There is no CT evidence of an acute intracranial hemorrhage, territorial infarction, midline shift,mass effect, or extra-axial collection. The calderon-white differentiation remains preserved and the basal cisterns are patent. Patchy hypodensity is seen within periventricular white matter, suggestive of chronic small vessel ischemic changes. Ventricles are appropriate in size for the patient's age and level of parenchymal volume. The osseous structures are unremarkable without evidence of a fracture. Mild mucosal thickening of the maxillary sinuses. Mastoid air cells remain well aerated. Improvement of hyperdense fluid collection along the right ocular globe which is now not well visualized, may be isodense subacute blood. ASPECTS SCORE: 10 CTA HEAD: ANTERIOR CIRCULATION Right Cavernous Carotid Artery: Patent. No focal stenosis, segmental occlusion or aneurysm. Right Middle Cerebral Artery: Patent. No focal stenosis, segmental occlusion or aneurysm. Right Anterior Cerebral Artery: Patent. No focal stenosis, segmental occlusion or aneurysm. Left Cavernous Carotid Artery: Patent with mild to moderate multifocal narrowing of the superior segment branches Left Middle Cerebral Artery: Patent. No focal stenosis, segmental occlusion or aneurysm. Left Anterior Cerebral Artery: Patent. No focal stenosis, segmental occlusion or aneurysm. Anterior Communicating Artery: Patent Posterior Communicating: Not Visualized POSTERIOR CIRCULATION Right Vertebral Artery: Patent. No focal stenosis, segmental occlusion, dissection, or aneurysm. Left Vertebral Artery: Patent. No focal stenosis, segmental occlusion, dissection, or aneurysm. Basilar Artery: Patent. No focal stenosis, segmental occlusion, or aneurysm. Right Posterior Cerebral Artery: Patent. No focal stenosis, segmental occlusion, dissection, or aneurysm. Left Posterior Cerebral Artery: Patent. No focal stenosis, segmental occlusion, dissection, or aneurysm. CTA NECK: AORTIC ARCH: Three-vessel. BRACHIOCEPHALIC ORIGIN AND RIGHT COMMON CAROTID ORIGIN: Patent without significant stenosis. RIGHT COMMON CAROTID ARTERY: Patent with no hemodynamically significant stenosis. RIGHT CAROTID BIFURCATION/PROX INT CAROTID ARTERY: Moderate atherosclerotic plaque. Less than 10 percent stenosis by NASCET criteria. CERVICAL SEGMENT RIGHT CAROTID ARTERY: Patent with no hemodynamically significant stenosis. LEFT COMMON CAROTID: Patent with no hemodynamically significant stenosis. LEFT CAROTID BIFURCATION/PROX LEFT INT CAROTID: Mild plaque within the carotid bulb. Less than 10 percent stenosis by NASCET criteria. CERVICAL SEGMENT LEFT INTERNAL CAROTID: Patent with no hemodynamically significant stenosis. RIGHT VERTEBRAL ARTERY:Patent with no hemodynamically significant stenosis or dissection. LEFT VERTEBRAL ARTERY:Patent with no hemodynamically significant stenosis or dissection. ACCESSORY STRUCTURES: Asymmetric prominence of the right tongue base. Medialization of the left vocal cord. There is no cervical lymphadenopathy. The airways are patent and the lung apices are clear.Straightening of the normal cervical lordosis with multilevel degenerative changes of the cervical spine. 1.7 x 1.0 cm nodular density along the posterior inferior right thyroid, which may be extrathyroidal no nodule or parathyroid adenoma. Partially visualized median sternotomy wires. Impression: 1. No acute intracranial hemorrhage or territorial infarct. 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 2. No large vessel occlusion seen in the head or neck. Mild to moderate multifocal narrowing in theleft MCA M2 and M3 superior segment branches. 3. Nonspecific asymmetric prominence of the right tongue base, which may be due to neurologic deficit among other possibilities. Recommend correlation with physical examination. 4. 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 5. 1.7 x 1.0 cm nodular density along the posterior inferior right thyroid, which may be extrathyroidal no nodule or parathyroid adenoma. Ultrasound and/or nuclear medicine parathyroid scan could be considered for further evaluation as clinically warranted. CRITICAL TEST RESULT COMMUNICATION: Critical findings discussed with Dr. Cueva at 05/11/2025 0956 AM EDT. Report Dictated on Electronically Signed By: Jorge Silva DR Electronically Signed Date/Time: 05/11/2025 10:20 AM EDT CONSULTANTS: Neurocritical care, cardiology RECOMMENDED NEXT STEPS: Transfer to rehab, follow-up with neurology, cardiology DISCHARGE MEDICATIONS: Medication List CONTINUE taking these medications amLODIPine 10 MG tablet Commonly known as: Norvasc Take 1 tablet (10 mg) by mouth daily. aspirin 81 MG EC tablet Take 2 tablets (162 mg) by mouth daily. Do not start before May 04, 2025. atorvastatin 80 MG tablet Commonly known as: Lipitor carvedilol 12.5 MG tablet Commonly known as: Coreg doxazosin 2 MG tablet Commonly known as: Cardura empagliflozin 25 MG Commonly known as: Jardiance glipiZIDE XL 2.5 MG 24 hr tablet Commonly known as: Glucotrol XL losartan 100 MG tablet Commonly known as: Cozaar melatonin 5 MG tablet Take 1 tablet (5 mg) by mouth Nightly as needed (sleep). metFORMIN 850 MG tablet Commonly known as: Glucophage Repatha SureClick 140 MG/ML injection Generic drug: evolocumab senna-docusate sodium 8.6-50 MG tablet Commonly known as: Senokot-S Take 2 tablets by mouth daily. sodium chloride 0.65 % nasal spray Commonly known as: [place] Administer 1 spray into each nostril every 2 hours as needed for congestion. Zetia 10 MG tablet Generic drug: ezetimibe DIET: Adult diet Regular ACTIVITY: Up with assist COMPLEXITY OF FOLLOW UP: [] Moderate Complexity: follow up within 7-14 calendar days (82273) [] Severe Complexity: follow up within 7 calendar days (84008) FOLLOW UP TESTING, PENDING RESULTS OR REFERRALS AT TRANSITIONAL CARE VISIT: [] Yes [] No PENDING STUDIES: DISPOSITION: Acute Rehab FACILITY/HOME CARE AGENCY NAME: Follow up with Vik Welch MD [address] [place], [place] [id number] Schedule an appointment as soon as possible for a visit in 4 week(s) INSTRUCTIONS TO MA/SW: Please call patient on day after discharge (must document patient contacted within 2 business days of discharge). FOLLOW UP QUESTIONS FOR MA/SW: 1. Did you get medications filled and taking them as instructed from discharge? 2. Are you following your discharge instructions from your hospital stay? 3. Please confirm patient is scheduled for a follow up appointment within the above time frame. DISCHARGE TIME: I spent 32.5 minutes on patient education, discharge planning SIGNED: Brianna Barriga MD 05/12/2025, 11:03 AM documented in this [facility]07-18-2025 Hospital Discharge instructions* Discharge Instr - BERNADINE* Madan Logan RN - 05/12/2025 11:02 AM EDT Images from the original note were not included. Continuity of Care Form Patient Name: Tom Booth : 1945 Admit date: 05/11/2025 Discharge date: 05/12/2025 Code Status Order: Full Code Advance Directives: Y Admitting Physician: Brianna Barriga MD PCP: Bre Flores DO Discharging Nurse: Madan Logan Discharging Hospital Unit/Room#: W4-441/W4-441 A Discharging Unit Emergency Contact: Extended Emergency Contact Information Primary Emergency Contact: Marzena Booth Mobile Relation: Spouse Secondary Emergency Contact: Maxi Booth Mobile Relation: Son Past Surgical History: No past surgical history on file. Immunization History: Immunization History Administered Date(s) Administered COVID-19, mRNA, LNP-S, PF, 50 mcg/0.5 mL 07/16/2023, 07/28/2024 Covid-19, Moderna Bivalent Booster, (Age 6y-11y) 07/08/2022 Moderna SARS-CoV-2 Vaccination 07/31/2021, 02/25/2022 Active Problems: Medical Problems Problem List * (Principal) NSTEMI (non-ST elevated myocardial infarction) (HCC) Acute ischemic left MCA stroke (HCC) Isolation/Infection: No active isolations No active infections Nurse Assessment: Last Vital Signs: BP 136/70 (BP Location: Left arm, Patient Position: Lying) Pulse 89 Temp 36.6C (97.9 F) (Temporal) Resp 19 Ht 5' 10 (1.778 m) Wt 158 lb 3.2 oz (71.8 kg) SpO2 93% BMI22.70 kg/m Last documented pain score (0-10 scale): Last Weight: Wt Readings from Last 1 Encounters: 05/11/25 158 lb 3.2 oz (71.8 kg) Mental Status: BERNADINE Patient Mental Status: oriented, alert, thought processes intact, and able to concentrate and follow conversation IV Access: BERNADINE IV Access: None Nursing Mobility/ADLs: Walking Total assistance Transfer Total assistance Bathing Total assistance Dressing Total assistance Toileting Total assistance Feeding Minimal assistance Vp Foundation Total assistance Med Delivery no Wound Care Documentation and Therapy: Wound/Incision 04/22/25 Other (comment) Ankle Anterior;Right (Active) Number of days: 20 Puncture Site 04/22/25 Groin Anterior;Proximal;Right;Upper (Active) Number of days: 20 Elimination: Continence: Bowel: no Bladder: yes Urinary Catheter: None Colostomy/Ileostomy/Ileal Conduit: None Date of Last BM: 05/11/2025 Intake/Output Summary (Last 24 hours) at 05/12/2025 1102 Last data filed at 05/11/2025 2128 Gross per 24 hour Intake 326.67 ml Output 100 ml Net 226.67 ml I/O last 3 completed shifts: In: 326.7 (4.6 mL/kg) [I.V.:326.7 (4.6 mL/kg)] Out: 100 (1.4 mL/kg) [Urine:100 (0 mL/kg/hr)] Weight: 71.8 kg Safety Concerns: at risk for falls and aspiration risk Impairments/Disabilities: 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 Ventilator: No ventilator support Rehab Therapies: physical therapy, occupational therapy, speech therapy, nursing, and aide Weight Bearing Status/Restrictions: no restriction Other Medical Equipment (for information only, NOT a DME order): rolling walker and wheelchair Other Treatments: n/a Patient's personal belongings (please select all that are sent with patient): glasses RN SIGNATURE: MANAGEMENT/SOCIAL WORK SECTION Inpatient Status Date: 05/11/2025 - 05/12/2025 Discharging to Facility/ Agency Name: [facility] Address: [address] [place] [address] Fax: Dialysis Facility (if applicable) Name: Address: Dialysis Schedule: Phone: Fax: Brim Buster/Quarter Supervisor signature: {E-signature:[id number]} PHYSICIAN SECTION Name: Tom Booth Prognosis: fair Condition at Discharge: stable Rehab Potential (if transferring to Rehab): fair Recommended Labs or Other Treatments After Discharge: CBC, CMP, F/U with Dr. Varela Cardiology in 2 weeks The individual is being admitted to a nursing facility directly from an [facility] or a unit of a [facility] that is not operated by or licensed by [facility] under section 5119.14 or 5160-3-15.1 5 The individual requires the level of services provided by a nursing facility for the condition for which he or she was treated in the hospital and, Physician Certification: I certify the above information and transfer of Tom Booth is necessary for the continuing treatment of the diagnosis listed and that he requires acute rehab for less than 30 days. Update Admission H&P: No change in H&P PHYSICIAN SIGNATURE: * Additional Instructions* Brianna Barriga MD - 05/12/2025 11:02 AM EDT F/U with Dr. Varela Cardiology in 2 weeks documented in this [facility]07-18-2025 Note* Care Coordination - Christelle Bravo RN - 05/12/2025 10:42 AM EDT Care Management Progress Note Short Medical why still here: Pt adm for tx/ eval of facial drop/ choking on pill from [facility]. NSTEMI cancelled. CT head/ CTA head neck/ XR chest completed. Mag 1.1, K 3.4.Neuro s/o. [facility] liaison Philomena checking if they can take pt back today. Pt and family updated. Planned Discharge Disposition: Inpatient Rehab Facility Barriers/Today we still Wait: Clinical stability, Custom Seamstress recommendations (comment), Symptomaticcontrol Length of Stay (Days): 1 GMLOS: No GMLOS [facility]ed [id number]* Care Coordination - Christelle Braov RN - 05/12/2025 10:42 AM EDT Care Management Progress Note Short Medical why still here: Pt adm for tx/ eval of facial drop/ choking on pill from [facility]. NSTEMI cancelled. CT head/ CTA head neck/ XR chest completed. Mag 1.1, K 3.4.Neuro s/o. [facility] liaison Philomena checking if they can take pt back today. Pt and family updated. Planned Discharge Disposition: Inpatient Rehab Facility Barriers/Today we still Wait: Clinical stability, Custom Seamstress recommendations (comment), Symptomaticcontrol Length of Stay (Days): 1 GMLOS: No GMLOS Documented [id number] Consult note* Kacey Villegas MD - 05/12/2025 8:40 AM EDT Associated Order(s): IP CONSULT TO CARDIOLOGY [facility] [place] [facility] [place]Electrophysiology Consult Note Reason for Consult/Chief Complaint: troponin elevation Referring provider: Brianna Barriga MD Established instrument sterilizer: Dr. Varela at [place] History of Present Illness: Tom Booth is a 79 y.o. 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 He was at inpatient rehab and had a brief episode of choking and difficulty swallowing his meds. He was briefly in distress with difficulty breathing and his systolic blood pressure went up to the 180s. He was not able to communicate at that time so EMS was called and was brought to the ED. Upon admission, His troponins were cycled with values of 9, 33, then 54. This morning troponin has normalized. ECG reviewed does not show any signs of ischemia or significant changes from baseline. He currently feels well and denies any complaints. Last TTE in March 2025 showed normal EF and wall motion. Patient denies any symptoms of chest discomfort, tightness, pressure, shortness of breath, heart palpitation, nausea and vomiting this morning. Stated that yesterday even during his panic attack/shortness of breath secondary to trouble with swallowing of the pill a potassium,he did not have any chest pain or chest discomfort. Per chart review, patient had a cardiac monitororder last month during last hospital stay for which patient plans to get that rolling and follow-up with his own instrument sterilizer at [facility]. Patient stated that he had history of 1 episode of A-fib post CABG but has not had any symptoms of heart palpitations since then and was never on bloodthinner. Patient stated that even at rehab, with exercising, he never had any shortness of breath, chest pain, peripheral edema. Assessment/Plan HF NYHA Class [] I [] II [] III [] IV []Unable to assess Mild troponin elevation CAD s/p CABG - Minimal troponin elevation now normalized is likely secondary to demand mediated injury in the setting of acute choking/aspiration episode happened at rehab - This minimal troponin elevation does not represent ACS. Pt has no anginal symptoms either - continue aspirin and high -intensity statin -From a cardiac standpoint, no further testing needed HTN - continue home antihypertensive agents. I, Dr. Villegas, saw and evaluated the patient. I personally obtained the braswell and critical portions ofthe history and physical exam. I reviewed the chart, the fellow's documentation, and discussed the patient with the fellow. I agree with the fellow's medical decision making and have edited the note to reflect my clinical findings and my assessment and plan. Medications: Scheduled Meds[1] Infusion Medications: Continuous Meds[2] Physical Examination: Vitals: 05/11/25 2049 05/12/25 0026 05/12/25 0400 05/12/25 0807 BP: 124/78 124/66 136/70 BP Location: Left arm Patient Position: Lying Pulse: 87 95 89 Resp: Temp: 36 C (96.8 F) (!) 35.9 C (96.7 F) 36.6 C (97.9 F) TempSrc: Temporal Temporal Temporal SpO2: 97% 96% 93% Weight: 158 lb 3.2 oz (71.8 kg) Height: 5' 10 (1.778 m) Intake/Output Summary (Last 24 hours) at 05/12/2025 0840 Last data filed at 05/11/2025 2128 Gross per 24 hour Intake 326.67 ml Output 100 ml Net 226.67 ml Wt Readings from Last 3 Encounters: 05/11/25 158 lb 3.2 oz (71.8 kg) 05/01/25 151 lb 3.2 oz (68.6 kg) Physical Exam Constitutional: NAD distress. well nourished. well hydrated Psychiatric: A &O x 3. Medical insight good NMT: Oral mucosa is pink and moist Neck: no JVD. Respiratory: Lungs are CTA Cardiac exam: Rhythm: RRR ; Normal S1 and S2 Murmur: none Other: No rub; no gallop Vasc: Peripheral pulses normal Abdomen: normal bs Extremities: no LE edema Skin: Warm to touch and well perfused Laboratory Tests: TROPONIN I, CONVENTIONAL SENSITIVITY No results found for: CKTOTAL, CKMB, CKMBINDEX, TROPONINI TROPONIN I, HIGH SENSITIVITY Troponin HS Serial Baseline Date Value Ref Range Status 05/12/2025 37 (H) <=35 ng/L Final Comment: In individuals presenting with symptoms > 2h, a baseline troponin <= 5 ng/L suggests acute cardiac injury is unlikely and further serial testing is generally not indicated. 05/11/2025 54 (H) <=35 ng/L Final Comment: In individuals presenting with symptoms > 2h, a baseline troponin <= 5 ng/L suggests acute cardiac injury is unlikely and further serial testing is generally not indicated. 05/11/2025 9 <=35 ng/L Final Comment: In individuals presenting with symptoms > 2h, a baseline troponin <= 5 ng/L suggests acute cardiac injury is unlikely and further serial testing is generally not indicated. 04/21/2025 6 <=35 ng/L Final Comment: In individuals presenting with symptoms > 2h, a baseline troponin <= 5 ng/L suggests acute cardiac injury is unlikely and further serial testing is generally not indicated. 2h Troponin HS (Serial 2nd Troponin) Date Value Ref Range Status 05/12/2025 31 <=35 ng/L Final Comment: Rising or falling troponin delta between 2 - 15 ng/L as compared to baseline value requires a 3rd serial troponin 05/11/2025 63 (H) <=35 ng/L Final Comment: 2h troponin (2nd troponin) samples collected between 1h 40 min and 2h and 20 min of the baseline collection time can be utilized to interpret delta troponins as per [employer] algorithms. Samples collected outside this timeframe need to be interpreted clinically. Rising or falling troponin delta between 2 - 15 ng/L as compared to baseline value requires a 3rd serial troponin 05/11/2025 33 <=35 ng/L Final Comment: 2h troponin (2nd troponin) samples collected between 1h 40 min and 2h and 20 min of the baseline collection time can be utilized to interpret delta troponins as per [employer]ma algorithms. Samples collected outside this timeframe need to be interpreted clinically. Rising or falling troponin delta greater than 15 ng/L as compared to baseline value is significant for acute cardiac injury. 04/22/2025 7 <=35 ng/L Final Comment: Rising or falling troponin delta below 2 ng/L as compared to baseline value suggests that acute cardiac injury is unlikely. No results found for: TROPDELTBASE 4h Troponin HS (Serial 3rd Troponin) Date Value Ref Range Status 05/11/2025 62 (H) <=35 ng/L Final Comment: 4h troponin (3rd troponin) samples collected between 1h 40 min and 2h and 20 min of the 2h troponincollection time can be utilized to interpret delta troponins as per [employer]ma algorithms. Samples collected outside this timeframe need to be interpreted clinically. Rising or falling troponin delta below 2 ng/L as compared to 2h troponin value suggests that acute cardiac injury is unlikely. No results found for: TROPDELTSEC Recent Labs 05/10/25 0530 05/11/25 0500 05/11/25 0958 05/12/25 0414 NA 137 139 140 140 K 3.1* 3.6 3.7 3.4* CL 108* 108* -- 112* CO2 24 21* -- 22* BUN 26* 23 -- 20 CREATININE 1.08 1.11 1.2 0.99 EGFR 70.2 68.0 -- 78.0 Recent Labs 05/10/25 0530 05/11/25 0500 05/11/25 0945 05/12/25 0414 WBC 8.7 8.5 9.1 7.3 HGB 11.2* 12.2* 12.0* 10.6* HCT 34.4* 37.4* 36.0* 31.8* MCV 88.9 88.8 87.6 89.3 PLT 336 341 350 280 Lab Results Component Value Date HGBA1C 7.1 (H) 04/22/2025 No results found for: TSH Lab Results Component Value Date CHOL 62 04/22/2025 Lab Results Component Value Date HDL 37 (L) 04/22/2025 Lab Results Component Value Date LDLCALC 11 04/22/2025 Lab Results Component Value Date TRIG 72 04/22/2025 No results found for: CHOLHDL No results found for: LDLCHOLESTER No results for input(s): BNP in the last 72 hours. Recent Labs 05/11/25 0945 INR 1.1 No results found for: IRON, TIBC, FERRITIN Radiology: CXR: personally reviewed: Cardiac Tests Personally Reviewed: Last EKG 05/11/25 ECG 12-LEAD (Preliminary) This result has not been signed. Information might be incomplete. Impression Sinus rhythm Right bundle branch block Inferior infarct, age indeterminate Telemetry findings: NSR with RBBB and occasional PACS Reports reviewed: Last Echo 04/21/25 TRANSTHORACIC ECHOCARDIOGRAM (TTE) COMPLETE (CONTRAST/BUBBLE/3D PRN) 04/24/2025 1:47 PM (Final) Interpretation Summary Left Ventricle: Left ventricle size is normal. Mildly increased wall thickness. Normal left ventricular systolic function. EF by 2D Simpsons Biplane is 66%. Normal wall motion. Right Ventricle: Right ventricle size is normal. Normal systolic function. Mitral Valve: Mildly thickened leaflets. Mild annular calcification. No stenosis noted. Left Atrium: Left atrium size is normal. Interatrial Septum: No interatrial shunt visualized on color Doppler. Aorta: Mildly dilated sinuses of Valsalva. Sinuses of Valsalva diameter is 3.9 cm. Mildly dilated ascending aorta. Ao ascending diameter is 4.1 cm. No significant valvular abnormalities. No thrombus or other source of embolic event is identified. Study Details: The underlying ECG rhythm was sinus rhythm. Signed by: Rick Vang MD on 04/24/2025 1:47 PM Last Cath No results found for this or any previous visit. Last Stress Test No results found for this or any previous visit. Last EP study No results found for this or any previous visit. EF BP Date Value Ref Range Status 04/24/2025 66 55 - 100 % Final Maribel Ling DO DATE of SERVICE: 05/12/2025 [1] amLODIPine, 10 mg, Oral, Daily aspirin, 162 mg, Oral, Daily atorvastatin, 80 mg, Oral, Daily carvedilol, 12.5 mg, Oral, BID WC dapagliflozin, 5 mg, Oral, Daily doxazosin, 2 mg, Oral, Nightly enoxaparin, 40 mg, SubCUTAneous, Daily ezetimibe, 10 mg, Oral, Daily glipiZIDE, 2.5 mg, Oral, qAM AC losartan, 100 mg, Oral, Daily metFORMIN, 850 mg, Oral, BID WC senna-docusate sodium, 2 tablet, Oral, Daily [2] [facility] [email or web address] Work Phone: [phone] 228-121207-18-2025 Consult note* Kacey Villegas MD - 05/12/2025 8:40 AM EDTAssociated Order(s): IP CONSULT TO CARDIOLOGY [facility] [place] [facility] [place] /Electrophysiology Consult Note Reason for Consult/Chief Complaint: troponin elevation Referring provider: Brianna Barriga MD Established instrument sterilizer: Dr. Varela at [place] History of Present Illness: Tom Booth is a 79 y.o. 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 He was at inpatient rehab and had a brief episode of choking and difficulty swallowing his meds. He was briefly in distress with difficulty breathing and his systolic blood pressure went up to the 180s. He was not able to communicate at that time so EMS was called and was brought to the ED. Upon admission, His troponins were cycled with values of 9, 33, then 54. This morning troponin has normalized. ECG reviewed does not show any signs of ischemia or significant changes from baseline. He currently feels well and denies any complaints. Last TTE in March 2025 showed normal EF and wall motion. Patient denies any symptoms of chest discomfort, tightness, pressure, shortness of breath, heart palpitation, nausea and vomiting this morning. Stated that yesterday even during his panic attack/shortness of breath secondary to trouble with swallowing of the pill a potassium,he did not have any chest pain or chest discomfort. Per chart review, patient had a cardiac monitororder last month during last hospital stay for which patient plans to get that rolling and follow-up with his own instrument sterilizer at [facility]. Patient stated that he had history of 1 episode of A-fib post CABG but has not had any symptoms of heart palpitations since then and was never on bloodthinner. Patient stated that even at rehab, with exercising, he never had any shortness of breath, chest pain, peripheral edema. Assessment/Plan HF NYHA Class [] I [] II [] III [] IV []Unable to assess Mild troponin elevation CAD s/p CABG - Minimal troponin elevation now normalized is likely secondary to demand mediated injury in the setting of acute choking/aspiration episode happened at rehab - This minimal troponin elevation does not represent ACS. Pt has no anginal symptoms either - continue aspirin and high -intensity statin -From a cardiac standpoint, no further testing needed HTN - continue home antihypertensive agents. I, Dr. Villegas, saw and evaluated the patient. I personally obtained the braswell and critical portions ofthe history and physical exam. I reviewed the chart, the fellow's documentation, and discussed the patient with the fellow. I agree with the fellow's medical decision making and have edited the note to reflect my clinical findings and my assessment and plan. Medications: Scheduled Meds[1] Infusion Medications: Continuous Meds[2] Physical Examination: Vitals: 05/11/25 2049 05/12/25 0026 05/12/25 0400 05/12/25 0807 BP: 124/78 124/66 136/70 BP Location: Left arm Patient Position: Lying Pulse: 87 95 89 Resp: Temp: 36 C (96.8 F) (!) 35.9 C (96.7 F) 36.6 C (97.9 F) TempSrc: Temporal Temporal Temporal SpO2: 97% 96% 93% Weight: 158 lb 3.2 oz (71.8 kg) Height: 5' 10 (1.778 m) Intake/Output Summary (Last 24 hours) at 05/12/2025 0840 Last data filed at 05/11/2025 2128 Gross per 24 hour Intake 326.67 ml Output 100 ml Net 226.67 ml Wt Readings from Last 3 Encounters: 05/11/25 158 lb 3.2 oz (71.8 kg) 05/01/25 151 lb 3.2 oz (68.6 kg) Physical Exam Constitutional: NAD distress. well nourished. well hydrated Psychiatric: A &O x 3. Medical insight good NMT: Oral mucosa is pink and moist Neck: no JVD. Respiratory: Lungs are CTA Cardiac exam: Rhythm: RRR ; Normal S1 and S2 Murmur: none Other: No rub; no gallop Vasc: Peripheral pulses normal Abdomen: normal bs Extremities: no LE edema Skin: Warm to touch and well perfused Laboratory Tests: TROPONIN I, CONVENTIONAL SENSITIVITY No results found for: CKTOTAL, CKMB, CKMBINDEX, TROPONINI TROPONIN I, HIGH SENSITIVITY Troponin HS Serial Baseline Date Value Ref Range Status 05/12/2025 37 (H) <=35 ng/L Final Comment: In individuals presenting with symptoms > 2h, a baseline troponin <= 5 ng/L suggests acute cardiac injury is unlikely and further serial testing is generally not indicated. 05/11/2025 54 (H) <=35 ng/L Final Comment: In individuals presenting with symptoms > 2h, a baseline troponin <= 5 ng/L suggests acute cardiac injury is unlikely and further serial testing is generally not indicated. 05/11/2025 9 <=35 ng/L Final Comment: In individuals presenting with symptoms > 2h, a baseline troponin <= 5 ng/L suggests acute cardiac injury is unlikely and further serial testing is generally not indicated. 04/21/2025 6 <=35 ng/L Final Comment: In individuals presenting with symptoms > 2h, a baseline troponin <= 5 ng/L suggests acute cardiac injury is unlikely and further serial testing is generally not indicated. 2h Troponin HS (Serial 2nd Troponin) Date Value Ref Range Status 05/12/2025 31 <=35 ng/L Final Comment: Rising or falling troponin delta between 2 - 15 ng/L as compared to baseline value requires a 3rd serial troponin 05/11/2025 63 (H) <=35 ng/L Final Comment: 2h troponin (2nd troponin) samples collected between 1h 40 min and 2h and 20 min of the baseline collection time can be utilized to interpret delta troponins as per Summa algorithms. Samples collected outside this timeframe need to be interpreted clinically. Rising or falling troponin delta between 2 - 15 ng/L as compared to baseline value requires a 3rd serial troponin 05/11/2025 33 <=35 ng/L Final Comment: 2h troponin (2nd troponin) samples collected between 1h 40 min and 2h and 20 min of the baseline collection time can be utilized to interpret delta troponins as per Summa algorithms. Samples collected outside this timeframe need to be interpreted clinically. Rising or falling troponin delta greater than 15 ng/L as compared to baseline value is significant for acute cardiac injury. 04/22/2025 7 <=35 ng/L Final Comment: Rising or falling troponin delta below 2 ng/L as compared to baseline value suggests that acute cardiac injury is unlikely. No results found for: TROPDELTBASE 4h Troponin HS (Serial 3rd Troponin) Date Value Ref Range Status 05/11/2025 62 (H) <=35 ng/L Final Comment: 4h troponin (3rd troponin) samples collected between 1h 40 min and 2h and 20 min of the 2h troponincollection time can be utilized to interpret delta troponins as per Summa algorithms. Samples collected outside this timeframe need to be interpreted clinically. Rising or falling troponin delta below 2 ng/L as compared to 2h troponin value suggests that acute cardiac injury is unlikely. No results found for: TROPDELTSEC Recent Labs 05/10/25 0530 05/11/25 0500 05/11/25 0958 05/12/25 0414 NA 137 139 140 140 K 3.1* 3.6 3.7 3.4* CL 108* 108* -- 112* CO2 24 21* -- 22* BUN 26* 23 -- 20 CREATININE 1.08 1.11 1.2 0.99 EGFR 70.2 68.0 -- 78.0 Recent Labs 05/10/25 0530 05/11/25 0500 05/11/25 0945 05/12/25 0414 WBC 8.7 8.5 9.1 7.3 HGB 11.2* 12.2* 12.0* 10.6* HCT 34.4* 37.4* 36.0* 31.8* MCV 88.9 88.8 87.6 89.3 PLT 336 341 350 280 Lab Results Component Value Date HGBA1C 7.1 (H) 04/22/2025 No results found for: TSH Lab Results Component Value Date CHOL 62 04/22/2025 Lab Results Component Value Date HDL 37 (L) 04/22/2025 Lab Results Component Value Date LDLCALC 11 04/22/2025 Lab Results Component Value Date TRIG 72 04/22/2025 No results found for: CHOLHDL No results found for: LDLCHOLESTER No results for input(s): BNP in the last 72 hours. Recent Labs 05/11/25 0945 INR 1.1 No results found for: IRON, TIBC, FERRITIN Radiology: CXR: personally reviewed: Cardiac Tests Personally Reviewed: Last EKG 05/11/25 ECG 12-LEAD (Preliminary) This result has not been signed. Information might be incomplete. Impression Sinus rhythm Right bundle branch block Inferior infarct, age indeterminate Telemetry findings: NSR with RBBB and occasional PACS Reports reviewed: Last Echo 04/21/25 TRANSTHORACIC ECHOCARDIOGRAM (TTE) COMPLETE (CONTRAST/BUBBLE/3D PRN) 04/24/2025 1:47 PM (Final) Interpretation Summary Left Ventricle: Left ventricle size is normal. Mildly increased wall thickness. Normal left ventricular systolic function. EF by 2D Simpsons Biplane is 66%. Normal wall motion. Right Ventricle: Right ventricle size is normal. Normal systolic function. Mitral Valve: Mildly thickened leaflets. Mild annular calcification. No stenosis noted. Left Atrium: Left atrium size is normal. Interatrial Septum: No interatrial shunt visualized on color Doppler. Aorta: Mildly dilated sinuses of Valsalva. Sinuses of Valsalva diameter is 3.9 cm. Mildly dilated ascending aorta. Ao ascending diameter is 4.1 cm. No significant valvular abnormalities. No thrombus or other source of embolic event is identified. Study Details: The underlying ECG rhythm was sinus rhythm. Signed by: Rick Vang MD on 04/24/2025 1:47 PM Last Cath No results found for this or any previous visit. Last Stress Test No results found for this or any previous visit. Last EP study No results found for this or any previous visit. EF BP Date Value Ref Range Status 04/24/2025 66 55 - 100 % Final Maribel Ling DO DATE of SERVICE: 05/12/2025 [1] amLODIPine, 10 mg, Oral, Daily aspirin, 162 mg, Oral, Daily atorvastatin, 80 mg, Oral, Daily carvedilol, 12.5 mg, Oral, BID WC dapagliflozin, 5 mg, Oral, Daily doxazosin, 2 mg, Oral, Nightly enoxaparin, 40 mg, SubCUTAneous, Daily ezetimibe, 10 mg, Oral, Daily glipiZIDE, 2.5 mg, Oral, qAM AC losartan, 100 mg, Oral, Daily metFORMIN, 850 mg, Oral, BID WC senna-docusate sodium, 2 tablet, Oral, Daily [2] * Alesia Cueva MD - 05/11/2025 10:51 AM EDTAssociated Order(s): IP CONSULT TO NEUROLOGY; IP CONSULT TO STROKE TEAM; IP CONSULT TO NEUROLOGY; IP CONSULT TO STROKE TEAM STROKE TEAM NOTE Patient Name: Tom Booth Patient : 1945 Acct: [id number] Date of Admission: 05/11/2025 Room/Bed: PCP: Bre Mark, DO Stroke team; Prehospital activation History of Present Mattie: 79 y.o. is right handed male with the chief Complaint of: , he was brought by EMS who had been called for reported worsening of his speech , drooling on his right side and worsening of his neurological problems Patient told me he had been given the morning pills, he felt he was chocking, difficulty swallowingand pain Nurse that was with him ( and I contacted on the phone ) reported that after she had given patientshis meds, he appeared in distress , difficulty breathing, his BP was 180s, she tried to ask him what was going on and he was not able to communicate with her for what she called the squad , she thought he was drooling Patient stated he was having problems breathing and felt chooking He is well known to me as I saw her also a recurrent stroke team while in the hospital before he was discharge . At that time his worsening consisted on decrease LOC and was do to low BP , Patient recovered to a NIHSS 12 , with severe expressive aphasia, some receptive speech and NIHSS 3on arm and 2 on the leg Patient comes today dramatically improved Onset time: last seen well; unclear short before coming ED arrival: please review the narrator Stroke teamactivation ; 09:45 NIHSS upon arrival: 1 speech, 1 arm 1 le 1 slurred .= 4 Associated symptoms: SOB and chest pain , difficulty swallowing This occurred in the setting of: recent left MCA territory infarction post tNk and attempted thrombectomy with HT , Current use of anticoagulants: NO If on anticoagulants when was last dose: no Preadmission secondary prevention antiplatelets and statins: REINA History of AF: non Contraindications for thrombolytic treatment: Yes Past Medical History: Medical History[1] Past Surgical History: Surgical History[2] Home Medications: Prior to Admission medications Medication Sig Start Date End Date Taking? Authorizing Provider amLODIPine (Norvasc) 10 MG tablet Take 1 tablet (10 mg) by mouth daily. 04/29/25 04/29/26 Rick Chow MD aspirin 81 MG EC tablet Take 2 tablets (162 mg) by mouth daily. Do not start before May 04, 2025. 05/04/25 05/04/26 Rick Chow MD atorvastatin (Lipitor) 80 MG tablet Take 80 mg by mouth daily. 03/07/25 Historical Provider, carvedilol (Coreg) 12.5 MG tablet Take 12.5 mg by mouth 2 times daily (with meals). 06/23/24 Historical Provider, doxazosin (Cardura) 2 MG tablet Take 2 mg by mouth Nightly. 10/11/24 Historical Provider, empagliflozin (Jardiance) 25 MG Take 25 mg by mouth daily. 07/06/24 Historical Provider, evolocumab (Repatha SureClick) 140 MG/ML injection Inject 140 mg under the skin every 14 (fourteen)days. 03/07/25 Historical Provider, ezetimibe (Zetia) 10 MG tablet Take 10 mg by mouth daily. 03/07/25 Historical Provider, glipiZIDE XL (Glucotrol XL) 2.5 MG 24 hr tablet Take 2.5 mg by mouth daily. 10/11/24 Historical Provider, losartan (Cozaar) 100 MG tablet Take 100 mg by mouth daily. 10/11/24 Historical Provider, melatonin 5 MG tablet Take 1 tablet (5 mg) by mouth Nightly as needed (sleep). 04/28/25 05/28/25 Rick Chow MD metFORMIN (Glucophage) 850 MG tablet Take 850 mg by mouth 2 times daily (with meals). 03/07/25 Historical Provider, senna-docusate sodium (Senokot-S) 8.6-50 MG tablet Take 2 tablets by mouth daily. 04/29/25 04/29/26 Rick Chow MD sodium chloride ([place]) 0.65 % nasal spray Administer 1 spray into each nostril every 2 hours as needed for congestion. 04/28/25 04/28/26 Rick Chow MD Current Hospital Medications: Current Medications[3] Continuous Infusions: Continuous Meds[4] Allergies: Fosinopril, Lovastatin, and Azithromycin Social History: TOBACCO: has no history on file for tobacco use. ETOH: has no history on file for alcohol use. RECREATIONAL DRUG USE: Social History Substance and Sexual Activity Drug Use Not on file FamilyHistory: :Unable to obtain, due to patient level of consciousness, no data on file, no family able to provide information Family History[5] ROS; :only that of swallowing difficulty , SOB and difficulty swallowing , Review of Systems Physical Examination: Patient Vitals for the past 8 hrs: BP Temp Temp src Pulse Resp SpO2 Height Weight 05/11/25 1031 123/64 -- -- 90 17 98 % 1.778 m (5' 10) 68.5 kg (151 lb) 05/11/25 0944 -- 36.9 C (98.5 F) Oral -- -- -- -- -- 05/11/25 0941 (!) 165/89 -- -- 95 18 97 % -- -- No intake/output data recorded. General Physical Examination: General: looked good , awake alert interactive cooperative smily HEENT:Normocephalic, atraumaticl CV: S1+S2, RRR, no MRG. Pulm:bilateral ronchae bases , Abdomen: Soft NT/ND. BS + Skin: brusing Extremities: third spacing Orthopedic limitation; Yes Pulses: Intact peripherally Carotid auscultation :No bruits Neurological Examination: Higher Functions: Mental Status Exam: Level of Alertness:Awake Orientation: Normal to self, time, place Memory: did not remember me Fund of Knowledge: Abnormal Language: followed all commands, responded with yes and no question appropriately , repeated but not welll , 2 but much better than before Dysarthria Present with wet voice but much better than prior Cranial Nerves: -II Visual acuity: normal -II Visual nation: normal -III Pupils (~ 3 mm OD, 3 mm OU) equal, round, reactive to light -III-IV- Extraocular Movements: intact -Nystagmus not present -Saccades and pursuits normal -V Facial sensation: intact Corneal's Intact bilateral -VII Facial strength: abnormal did not see any significant assymmetry , to me it was normal -VIII Hearing: abnormal mild decreased -IX-X- Gag reflex present -X Palate:abnormal 'poor visualization -XI Shoulder shrug: abnormal decreased on the right but better than prior -XII Tongue movement: intact Funduscopic Exam: normal, no edema or exudates both eyes Motor Examination: Tone after evaluation of 4 limbs, the following findings applied: Mid decreaed on his right side , . . -Bulk: normal -Muscle Stretchafter evaluation of all limbs, and axial musculature the following findings applied: Drift: drigt on his right arm and leg but able to keep it for 10 second . -Reflexes: after evaluation of 4 limbs, the following findings applied ; Abnormal -Plantar responce: Flexor bilaterally Sensory appears normal but limited reliability, Coordination: Arms Normal finger to nose Legs Intact heel knee carney testing Tremors not present Gait Had been able to walk in rehab for the last 2 days , not attempted in the ED do to safety NIHSS 1a Level of consciousness: 0=alert; keenly responsive 1b. LOC questions: 0=Performs both tasks correctly 1c. LOC commands: 0=Performs both tasks correctly 2. Best Gaze: 0=normal 3. Visual: 0=No visual loss 4. Facial Palsy: 0=Normal symmetric movement 5a. Motor left arm: 0=No drift, limb holds 90 (or 45) degrees for full 10 seconds 5b. Motor right arm: 1=Drift, limb holds 90 (or 45) degrees but drifts down before full 10 seconds:does not hit bed 6a. motor left le=No drift, limb holds 90 (or 45) degrees for full 10 seconds 6b Motor right le=Drift, limb holds 90 (or 45) degrees but drifts down before full 10 seconds: does not hit bed 7. Limb Ataxia: 0=Absent 8. Sensory: 0=Normal; no sensory loss 9. Best Language: 2 10. Dysarthria: 1=Mild to moderate, patient slurs at least some words and at worst, can be understood with some difficulty 11. Extinction and Inattention: 0=No abnormality 12. Distal motor function: 0=Normal Total: 5 He was 14 last time I saw him Pre-admission Modified Pima Score: 3 __ 0 No symptoms at all __ 1 No significant disability despite symptoms; able to carry out all usual duties and activities __ 2 Slight disability; unable to carry out all previous activities, but able to look after own affairs without assistance __ 3 Moderate disability; requiring some help, but able to walk without assistance __ 4 Moderately severe disability; unable to walk without assistance and unable to attend to own bodily needs without assistance __ 5 Severe disability; bedridden, incontinent and requiring constant nursing care and attention Ancillary Data: Labs: Recent Results (from the past 24 hours) CBC Collection Time: 05/11/25 5:00 AM Result Value Ref Range Auto WBC 8.5 3.6 - 10.7 10*3/uL RBC 4.21 (L) 4.40 - 5.90 10*6/uL Hemoglobin 12.2 (L) 13.0 - 18.0 g/dL Hematocrit 37.4 (L) 40.0 - 52.0 % MCV 88.8 77.0 - 99.0 fL MCH 29.0 26.0 - 34.0 pg MCHC 32.6 30.5 - 36.0 % RDW 14.5 11.5 - 15.0 % Platelets 341 140 - 440 10*3/uL MPV 9.4 9.0 - 12.7 fL Basic metabolic panel Collection Time: 05/11/25 5:00 AM Result Value Ref Range SODIUM 139 136 - 145 mmol/L POTASSIUM 3.6 3.5 - 5.1 mmol/L CHLORIDE 108 (H) 98 - 107 mmol/L CARBON DIOXIDE 21 (L) 23 - 31 mmol/L UREA NITROGEN 23 9 - 23 mg/dL CREATININE 1.11 0.72 - 1.25 mg/dL GLUCOSE 113 82 - 115 mg/dL CALCIUM 9.2 8.8 - 10.0 mg/dL ANION GAP 10 3 - 13 mmol/L eGFR 68.0 >60.0 mL/min/1.73m*2 CBC Collection Time: 05/11/25 9:45 AM Result Value Ref Range Auto WBC 9.1 3.6 - 10.7 10*3/uL RBC 4.11 (L) 4.40 - 5.90 10*6/uL Hemoglobin 12.0 (L) 13.0 - 18.0 g/dL Hematocrit 36.0 (L) 40.0 - 52.0 % MCV 87.6 77.0 - 99.0 fL MCH 29.2 26.0 - 34.0 pg MCHC 33.3 30.5 - 36.0 % RDW 14.5 11.5 - 15.0 % Platelets 350 140 - 440 10*3/uL MPV 8.9 (L) 9.0 - 12.7 fL Serial Troponin, High Sensitivity Collection Time: 05/11/25 9:45 AM Result Value Ref Range Troponin HS Serial Baseline 9 <=35 ng/L PROTIME/INR & PTT Collection Time: 05/11/25 9:45 AM Result Value Ref Range PROTHROMBIN TIME 11.3 9.0 - 12.0 s INR 1.1 0.9 - 1.1 APTT 28.9 20.0 - 30.5 s ECG 12 lead if not already done by Squad Collection Time: 05/11/25 9:46 AM Result Value Ref Range Heart Rate 98 bpm QRSD Interval 146 ms QT Interval 376 ms QTC Interval 480 ms P Boaz 49 degrees QRS Boaz 12 degrees T Wave Boaz 5 degrees CA Interval 204 ms KERWIN Rodriguez (Lab Only) Collection Time: 05/11/25 9:58 AM Result Value Ref Range Sodium, WB 140 133 - 145 mmol/L POTASSIUM,WB 3.7 3.4 - 5.1 mmol/L CHLORIDE,WB 105 98 - 114 mmol/L CO2 WHOLE BLOOD 21 21 - 29 mmol/L ANION GAP 14.00 (H) 3.00 - 13.00 GLUCOSE, WB 213 (H) 70 - 100 mg/dL UREA NITROGEN, WB 21 4 - 22 mg/dL eGFR, Whole Blood 61.9 CREATININE, WB 1.2 0.6 - 1.3 mg/dL CALCIUM,IONIZED 4.90 4.30 - 5.20 mg/dl No results for input(s): PH, PO2, PCO2, HCO3, O2SAT in the last 72 hours. No lab exists for component: BE Recent Labs 05/11/25 0945 INR 1.1 Radiology: CT head: no acute findings CTA: no evidence of obstructions If CTA was ASSESSMENT - This is NOT a new stroke or TIA - Patient had difficulty swallowing sensation of chocking and chest pain that increased his BP and led for him to feel he could not talk , these all resolved when he swallowed and that sensation stopped , he denied any new neurological compalint He however complaints of - Cought and chest pain when breathing , I have discussed with ED team to ensure chest XR and r/o pneumonia I have also talked to Dr. 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 I reviewed the chart including MAR, labs, neuroimaging, other imaging studies and discussed my diagnostic impression and patient's plan of care with my TREMAINE/resident/ Fellow , student and the consulting team and patient's family members/surrogate decision makers (in cases where the patient is incapacitated and unable to participate in their own care). [x] Encounter Face to Face [x] Consult [x] Stroke team [x] 60 [x] No longer neurological follow up needed, will sign off, let us know if need for further assistance Thank you Bre Flores DO for the opportunity to be involved in this patient's care. [1] No past medical history on file. [2] No past surgical history on file. [3] Current Facility-Administered Medications: labetalol (Normodyne,Trandate) injection 10 mg, 10 mg, IntraVENous, q10 min PRN, Vignesh Yates MD sodium chloride 0.9 % bolus 250 mL, 250 mL, IntraVENous, Once, Chuy Villatoro MD, Last Rate: 250 mL/hr at 05/11/25 1034, 250 mL at 05/11/25 1034 sodium chloride 0.9 % infusion, 50 mL/hr, IntraVENous, Continuous, Chuy Villatoro MD Current Outpatient Medications: amLODIPine (Norvasc) 10 MG tablet, Take 1 tablet (10 mg) by mouth daily., Disp: , Rfl: aspirin 81 MG EC tablet, Take 2 tablets (162 mg) by mouth daily. Do not start before May 04, 2025., Disp: , Rfl: atorvastatin (Lipitor) 80 MG tablet, Take 80 mg by mouth daily., Disp: , Rfl: carvedilol (Coreg) 12.5 MG tablet, Take 12.5 mg by mouth 2 times daily (with meals)., Disp: , Rfl: doxazosin (Cardura) 2 MG tablet, Take 2 mg by mouth Nightly., Disp: , Rfl: empagliflozin (Jardiance) 25 MG, Take 25 mg by mouth daily., Disp: , Rfl: evolocumab (Repatha SureClick) 140 MG/ML injection, Inject 140 mg under the skin every 14 (fourteen) days., Disp: , Rfl: ezetimibe (Zetia) 10 MG tablet, Take 10 mg by mouth daily., Disp: , Rfl: glipiZIDE XL (Glucotrol XL) 2.5 MG 24 hr tablet, Take 2.5 mg by mouth daily., Disp: , Rfl: losartan (Cozaar) 100 MG tablet, Take 100 mg by mouth daily., Disp: , Rfl: melatonin 5 MG tablet, Take 1 tablet (5 mg) by mouth Nightly as needed (sleep)., Disp: 30 tablet, Rfl: metFORMIN (Glucophage) 850 MG tablet, Take 850 mg by mouth 2 times daily (with meals)., Disp: , Rfl: senna-docusate sodium (Senokot-S) 8.6-50 MG tablet, Take 2 tablets by mouth daily., Disp: , Rfl: sodium chloride ([place]) 0.65 % nasal spray, Administer 1 spray into each nostril every 2 hours as needed for congestion., Disp: , Rfl: [4] sodium chloride, 50 mL/hr [5] No family history on file. documented in this [facility]07-17-2025 Emergency department Note* Alva Flores RN - 05/11/2025 8:34 PM EDT Transport at bedside [id number]* Alva Flores RN - 05/11/2025 8:34 PM EDT Transport at bedside to transport pt to 4W. * Chuy Villatoro MD - 05/11/2025 9:36 AM EDT EMERGENCY DEPARTMENT ENCOUNTER Pt Name: Tom Booth Birthdate 1945 Date of evaluation: 05/11/2025 ED Provider: Chuy Villatoro MD CHIEF COMPLAINT Chief Complaint Patient presents with Facial Droop Pt has hx of right side weakness and right facial droop, hx stroke. Patient is coming from [facility] for worsening facial droop and drooling, [id number]. HISTORY OF PRESENT ILLNESS (Location/Symptom, Timing/Onset, Context/Setting, Quality, Duration, Modifying Factors, Severity) Note limiting factors. I wore appropriate PPE for the entirety of this encounter. HPI Tom Booth is a 79 y.o. who presents to the emergency department with concern for stroke. Patient is currently staying in acute rehab after having a stroke on 04/21/2025 for which he received TNK. Nursing staff today noticed that his previous deficits which were right sided were worse today. They noticed worsening right-sided facial droop with drooling, right upper extremity weakness and some confusion. Patient is having word finding difficulty, appears to be oriented however is unable totell me what is going on, gets frustrated because he cannot find the right word. He denies any painincluding chest pain, shortness of breath, abdominal pain, nausea, vomiting, diarrhea or any other specific complaints. Nursing Notes were reviewed. Limitations to history: Dysarthria Outside historians: EMS REVIEW OF SYSTEMS Review of Systems Pertinent positives and negatives as per HPI PAST MEDICAL HISTORY Medical History[1] SURGICAL HISTORY Surgical History[2] CURRENT MEDICATIONS Previous Medications AMLODIPINE (NORVASC) 10 MG TABLET Take 1 tablet (10 mg) by mouth daily. ASPIRIN 81 MG EC TABLET Take 2 tablets (162 mg) by mouth daily. Do not start before May 04, 2025. ATORVASTATIN (LIPITOR) 80 MG TABLET Take 80 mg by mouth daily. CARVEDILOL (COREG) 12.5 MG TABLET Take 12.5 mg by mouth 2 times daily (with meals). DOXAZOSIN (CARDURA) 2 MG TABLET Take 2 mg by mouth Nightly. EMPAGLIFLOZIN (JARDIANCE) 25 MG Take 25 mg by mouth daily. EVOLOCUMAB (REPATHA SURECLICK) 140 MG/ML INJECTION Inject 140 mg under the skin every 14 (fourteen)days. EZETIMIBE (ZETIA) 10 MG TABLET Take 10 mg by mouth daily. GLIPIZIDE XL (GLUCOTROL XL) 2.5 MG 24 HR TABLET Take 2.5 mg by mouth daily. LOSARTAN (COZAAR) 100 MG TABLET Take 100 mg by mouth daily. MELATONIN 5 MG TABLET Take 1 tablet (5 mg) by mouth Nightly as needed (sleep). METFORMIN (GLUCOPHAGE) 850 MG TABLET Take 850 mg by mouth 2 times daily (with meals). SENNA-DOCUSATE SODIUM (SENOKOT-S) 8.6-50 MG TABLET Take 2 tablets by mouth daily. SODIUM CHLORIDE (OCEAN) 0.65 % NASAL SPRAY Administer 1 spray into each nostril every 2 hours as needed for congestion. ALLERGIES Fosinopril, Lovastatin, and Azithromycin FAMILY HISTORY Family History[3] SOCIAL HISTORY Social History[4] PHYSICAL EXAM ED Triage Vitals Temp Heart Rate Resp BP 05/11/25 0944 05/11/2594005/11/2594005/11/25940 36.9 C (98.5 F) 95 18 (!) 165/89 SpO2 Temp Source Heart Rate Source Patient Position 05/11/2594005/11/2594305/11/25940 -- 97 % Oral Monitor BP Location FiO2 (%) -- -- Physical Exam Constitutional: Appearance: Normal appearance. Cardiovascular: Rate and Rhythm: Normal rate and regular rhythm. Pulses: Normal pulses. Heart sounds: Normal heart sounds. Pulmonary: Effort: Pulmonary effort is normal. Breath sounds: Normal breath sounds. Abdominal: General: Abdomen is flat. Palpations: Abdomen is soft. Tenderness: There is no abdominal tenderness. Neurological: General: No focal deficit present. Mental Status: He is alert. Cranial Nerves: Cranial nerve deficit present. Sensory: No sensory deficit. Motor: Weakness present. Coordination: Coordination normal. Comments: On mental status, word finding difficulty, dysarthria and aphasia, right upper extremity weakness compared to left, please see NIH stroke scale for full NIHSS DIAGNOSTIC RESULTS RADIOLOGY (Per Emergency Physician): Interpretation per the Radiologist below, if available at the time of this note: FL modified barium with video and speech Final Result No vocal cord penetration or airway aspiration. Please refer to the speech pathologist's report for additional comments and recommendation. Report Dictated on Electronically Signed By: Lexii Fong MD Electronically Signed Date/Time: 05/11/2025 2:31 PM EDT XR chest 2 views Final Result No acute consolidative process. Report Dictated on Electronically Signed By: Jorge Silva DR Electronically Signed Date/Time: 05/11/2025 11:02 AM EDT CTA head neck angio w and wo IV contrast Final Result 1. No acute intracranial hemorrhage or territorial infarct. 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 2. No large vessel occlusion seen in the head or neck. Mild to moderate multifocal narrowing in theleft MCA M2 and M3 superior segment branches. 3. Nonspecific asymmetric prominence of the right tongue base, which may be due to neurologic deficit among other possibilities. Recommend correlation with physical examination. 4. 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 5. 1.7 x 1.0 cm nodular density along the posterior inferior right thyroid, which may be extrathyroidal no nodule or parathyroid adenoma. Ultrasound and/or nuclear medicine parathyroid scan could be considered for further evaluation as clinically warranted. CRITICAL TEST RESULT COMMUNICATION: Critical findings discussed with Dr. Cueva at 05/11/2025 0956 AM EDT. Report Dictated on Electronically Signed By: Jorge Silva DR Electronically Signed Date/Time: 05/11/2025 10:[address] head wo IV contrast Final Result 1. No acute intracranial hemorrhage or territorial infarct. 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 2. No large vessel occlusion seen in the head or neck. Mild to moderate multifocal narrowing in theleft MCA M2 and M3 superior segment branches. 3. Nonspecific asymmetric prominence of the right tongue base, which may be due to neurologic deficit among other possibilities. Recommend correlation with physical examination. 4. 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 5. 1.7 x 1.0 cm nodular density along the posterior inferior right thyroid, which may be extrathyroidal no nodule or parathyroid adenoma. Ultrasound and/or nuclear medicine parathyroid scan could be considered for further evaluation as clinically warranted. CRITICAL TEST RESULT COMMUNICATION: Critical findings discussed with Dr. Cueva at 05/11/2025 0956 AM EDT. Report Dictated on Electronically Signed By: Jorge Silva DR Electronically Signed Date/Time: 05/11/2025 10:20 AM EDT LABS: Labs Reviewed CBC (HEMOGRAM) - Abnormal Result Value Auto WBC 9.1 RBC 4.11 (*) Hemoglobin 12.0 (*) Hematocrit 36.0 (*) MCV 87.6 MCH 29.2 MCHC 33.3 RDW 14.5 Platelets 350 MPV 8.9 (*) BMPI ISTAT (LAB ONLY) - Abnormal Sodium, WB 140 POTASSIUM,WB 3.7 CHLORIDE,WB 105 CO2 WHOLE BLOOD 21 ANION GAP 14.00 (*) GLUCOSE, WB 213 (*) UREA NITROGEN, WB 21 eGFR, Whole Blood 61.9 CREATININE, WB 1.2 CALCIUM,IONIZED 4.90 Narrative: Performed by: [place] [id number] CLIA ID: [id number] HIGH SENSITIVITY TROPONIN, SERIAL BASELINE - Abnormal Troponin HS Serial Baseline 54 (*) POCT GLUCOSE METER UNSOLICITED RESULTS - Abnormal Glucose 113 (*) Narrative: Performed by: [place] [id number] CLIA ID: [id number] HIGH SENSITIVITY TROPONIN, SERIAL BASELINE - Normal Troponin HS Serial Baseline 9 PROTIME & APTT - Normal PROTHROMBIN TIME 11.3 INR 1.1 APTT 28.9 HIGH SENSITIVITY TROPONIN, SERIAL, SECOND TEST - Normal 2h Troponin HS (Serial 2nd Troponin) 33 HIGH SENSITIVITY TROPONIN, SERIAL, SECOND TEST POCT GLUCOSE METER POCT GLUCOSE METER All other labs were within normal range or not returned as of this dictation. EMERGENCY DEPARTMENT COURSE and DIFFERENTIAL DIAGNOSIS/MDM: Vitals: Vitals: 05/11/25 0944 05/11/25 1031 05/11/25 1230 05/11/25 1432 BP: 123/64 138/70 (!) 146/82 BP Location: Left arm Left arm Patient Position: Lying Lying Pulse: 90 81 85 Resp: Temp: 36.9 C (98.5 F) TempSrc: Oral SpO2: 98% 97% 98% Weight: 68.5 kg (151 lb) Height: 1.778 m (5' 10) Medications labetalol (Normodyne,Trandate) injection 10 mg (has no administration in time range) sodium chloride 0.9 % infusion (50 mL/hr IntraVENous New Bag 05/11/25 1236) aspirin EC tablet 325 mg (has no administration in time range) sodium chloride 0.9 % bolus 250 mL (0 mL IntraVENous Stopped 05/11/25 1236) iopamidol (Isovue-370) 76 % injection 100 mL (100 mL IntraVENous Given 05/11/25 0952) barium sulfate (Varibar THIN Liquid) 40 % suspension 30 mL (30 mL Oral Given 05/11/25 1346) ED Course as of 05/11/25 1555 [facility] May 11, 2025 1037 Spoke with stroke attending, she states that she saw this patient at his last stroke and feelsthat he is at his baseline. States that she feels he was aspirating while eating. Requesting chest x-ray and swallow study. [AK] 1413 Second troponin elevated at 33, third to be obtained [AK] 1527 Troponin continuing to rise, now 54, will plan for admission to medicine [AK] ED Course User Index [AK] Chuy Villatoro MD Diagnoses as of 05/11/251554 NSTEMI (non-ST elevated myocardial infarction) (HCC) SCREENINGS NIH Stroke Scale 1A. Level of Consciousness: Alert, Keenly Responsive 1B. Ask Month and Age: No Questions Right 1C. Blink Eyes & Squeeze Hands: Performs Both Tasks 2. Best Gaze: Normal 3. Visual: No Visual Loss 4. Facial Palsy: Partial Paralysis 5A. Motor - Left Arm: No Drift 5B. Motor - Right Arm: Some Effort Against [place] 6A. Motor - Left Leg: No Drift 6B. Motor - Right Leg: Drift 7. Limb Ataxia: Present in One Limb 8. Sensory Loss: [id number]-Flychqef Sensory Loss 9. Best Language: Severe Aphasia 10. Dysarthria: [id number]-Hlzthkup Dysarthria 11. Extinction and Inattention: No Abnormality NIH Stroke Scale: 12 MDM elements: The patient presented with chief complaint of stroke. The differential diagnosis associated with this patient's presentation includes stroke, ACS, sepsis. Our workup consisted of ordering/reviewing: Stroke workup, CT head, CTA head and neck, cardiac workup and team stroke. Patient is in agreement with this plan. EKG and independently interpreted, sinus rhythm, regular rate, right bundle branch block, no ST elevations meeting STEMI criteria, nonspecific EKG PROCEDURES: Unless otherwise noted below, none Procedures CRITICAL CARE TIME Total Critical Care time was 15 minutes, excluding separately reportable procedures. There was a high probability of clinically significant/life threatening deterioration in the patient's condition which required my urgent intervention. FINAL IMPRESSION 1. NSTEMI (non-ST elevated myocardial infarction) (HCC) DISPOSITION Admit 05/11/2025 03:54:09 PM PATIENT REFERRED TO: No follow-up provider specified. DISCHARGE MEDICATIONS: New Prescriptions No medications on file (Comment: Please note this report has been produced using speech recognition software and may contain errors related to that system including errors in grammar, punctuation, and spelling, as well as words and phrases that may be inappropriate. If there are any questions or concerns please feel freeto contact the dictating provider for clarification.) Chuy Villatoro MD (electronically signed) Emergency Medicine Provider [1] No past medical history on file. [2] No past surgical history on file. [3] No family history on file. [4] Social History Socioeconomic History Marital status: Social Drivers of Health Food Insecurity: No Food Insecurity (05/01/2025) Hunger Vital Sign Worried About Running Out of Food in the Last Year: Never true Ran Out of Food in the Last Year: Never true Transportation Needs: No Transportation Needs (05/01/2025) PRAPARE - Transportation Lack of Transportation (Medical): No Lack of Transportation (Non-Medical): No Intimate Partner Violence: Not At Risk (05/01/2025) Humiliation, Afraid, Rape, and Kick questionnaire Fear of Current or Ex-Partner: No Emotionally Abused: No Physically Abused: No Sexually Abused: No Housing Stability: Low Risk (05/01/2025) Housing Stability Vital Sign Unable to Pay for Housing in the Last Year: No Number of Times Moved in the Last Year: 0 Homeless in the Last Year: No Chuy Villatoro MD 05/11/25 1557 documented in this [facility]07-17-2025 History and physical note* Rick Chow MD - 05/11/2025 4:18 PM EDT Attending History and Physical Admit Date: 05/11/2025 PCP: Bre Flores DO CHIEF COMPLAINT: speech changes, choking Reason for Admission: elevated troponin History Obtained From: patient HISTORY OF PRESENT ILLNESS: Tom is a 79 y.o. 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 The patient has been at [facility] since his stroke (initial [facility] 12, now at 2). Today the nurse was giving him meds when he had a brief episode of choking and difficulty swallowing his meds. He was briefly in distress with difficulty breathing and his systolic blood pressure went up to the 180s. He was not able to communicate at that time so EMS was called and was brought to the ED. In the ED vital signs remarkable for pulse of 95 which later improved to 85 and initial blood pressure 165/89 which improved to 146/82. His symptoms resolved. Had a repeat modified barium swallow in the ED which was unremarkable and he was cleared for diet. His troponins were cycled with values of 9, 33, then 54. Given his increasing troponin is mid. I discussed case with ED provider and agreed to admit the patient I saw the patient in ED. Patient is known to me from his previous admission. He is doing significantly better than when he was discharged including improvement in his right sided strength and his speech. He currently feels well and denies any complaints. Past Medical History: Medical History[1] Past Surgical History: Surgical History[2] Social History: Social History Socioeconomic History Marital status: Spouse name: Not on file Number of children: Not on file Years of education: Not on file Highest education level: Not on file Occupational History Not on file Tobacco Use Smoking status: Not on file Smokeless tobacco: Not on file Substance and Sexual Activity Alcohol use: Not on file Drug use: Not on file Sexual activity: Not on file Other Topics Concern Not on file Social History Narrative Not on file Social Drivers of Health Financial Resource Strain: Not on file Food Insecurity: No Food Insecurity (05/01/2025) Hunger Vital Sign Worried About Running Out of Food in the Last Year: Never true Ran Out of Food in the Last Year: Never true Transportation Needs: No Transportation Needs (05/01/2025) PRAPARE - Transportation Lack of Transportation (Medical): No Lack of Transportation (Non-Medical): No Physical Activity: Not on file Stress: Not on file Social Connections: Not on file Intimate Partner Violence: Not At Risk (05/01/2025) Humiliation, Afraid, Rape, and Kick questionnaire Fear of Current or Ex-Partner: No Emotionally Abused: No Physically Abused: No Sexually Abused: No Housing Stability: Low Risk (05/01/2025) Housing Stability Vital Sign Unable to Pay for Housing in the Last Year: No Number of Times Moved in the Last Year: 0 Homeless in the Last Year: No Family History: Family History[3] Medications Prior to Admission: Current Medications[4] Medications Reconciliation: Medication were reviewed and verified as accurate with patient. Allergies: Allergies[5] REVIEW OF SYSTEMS: 10 point ROS obtained, as per HPI, otherwise NEG Vitals: BP (!) 146/82 (BP Location: Left arm, Patient Position: Lying) Pulse 85 Temp 36.9 C (98.5 F) (Oral) Resp 17 Ht 5' 10 (1.778 m) Wt 151 lb (68.5 kg) SpO2 98% BMI 21.67 kg/m BMI Classification: Normal Weight (BMI 18.5-24.9) Pulse Ox: SpO2 Av.5 % Min: 97 % Max: 98 % Supplemental O2: PHYSICAL EXAM: Physical Exam Vitals reviewed. Constitutional: General: He is not in acute distress. Appearance: He is not ill-appearing. HENT: Mouth/Throat: Mouth: Mucous membranes are moist. Pharynx: Oropharynx is clear. Eyes: Comments: Subconjunctival hematoma noted from previous admission in right eye, improved Cardiovascular: Rate and Rhythm: Normal rate and regular rhythm. Pulmonary: Effort: Pulmonary effort is normal. Breath sounds: Normal breath sounds. Abdominal: General: Bowel sounds are normal. Neurological: Mental Status: He is alert and oriented to person, place, and time. Cranial Nerves: No cranial nerve deficit. Sensory: No sensory deficit. Motor: Weakness (RUE) present. Comments: Mild dysarthria, improved DATA: CBC: Recent Labs 05/10/25 0530 05/11/25 0500 05/11/25 0945 WBC 8.7 8.5 9.1 RBC 3.87* 4.21* 4.11* HGB 11.2* 12.2* 12.0* HCT 34.4* 37.4* 36.0* MCV 88.9 88.8 87.6 RDW 14.5 14.5 14.5 PLT 336 341 350 BMP: Recent Labs 05/10/25 0530 05/11/25 0500 05/11/25 0958 NA 137 139 140 K 3.1* 3.6 3.7 CL 108* 108* -- CO2 24 21* -- BUN 26* 23 -- CREATININE 1.08 1.11 1.2 GLUCOSE 108 113 -- CALCIUM 8.8 9.2 -- ANIONGAP 5 10 -- LIVER PROFILE:No results for input(s): AST, ALT, BILITOT, ALKPHOS, PROT in the last 72 hours. No lab exists for component: LABALBU PT/INR: Recent Labs 05/11/25 0945 PROTIME 11.3 INR 1.1 CARDIAC ENZYMES: No results for input(s): TROPONINI in the last 72 hours. Procalcitonin: No results found for: PROCAL Urine Culture: No results found for this or any previous visit. COVID-19 PCR: No results for input(s): COVID19 in the last 72 hours. I reviewed: [x] laboratory results [x] radiographic results At the time of today's encounter. Pt was advised of the results. Data: NA (LOW: 2x CAT1 or independent historian MOD: 3x CAT1 or 1x CAT3 EXTENSIVE: 3x CAT1 and 1x CAT3) Assessment Discussed management with the ED provider and agree with hospitalization. Acute, acute on chronic, unstable/uncontrolled chronic problems/diagnoses: Elevated troponin Choking episode Speech changes now resolved Stable chronic problems affecting care, new non-acute diagnoses: Left MCA acute embolic infarct with petechial hemorrhagic transformation PAF not currently on DOAC Hypertension Hyperlipidemia Type 2 diabetes mellitus with hyperglycemia NAGMA likely due to NS infusion Hypocalcemia Leukocytosis Normocytic anemia CAD Hx CABG OSIEL HFpEF Plan As a result of the above findings & factors, the following mgmt was pursued: - Repeat troponin in a.m. -Telemetry - consult cardiology -Continue home medications -Continue 2x baby aspirin dose as recommended by neurology last admission - PT/OT - am labs, replace lytes prn - PT/OT/CM/SW - delirium precautions: increase activity - DVT prophylaxis: enoxaparin and encourage ambulation Complexity: Acute illness with systemic symptoms (MOD). Risk: Low risk diagnostic testing or treatment (LOW). Advance Directive: Prior Anticipated Discharge - Date - 05/12 - Location - Acute Rehab - Pending the following - cardiology recs Total time spent (which include face to face and non face to face encounters) : 65 minutes. Toxic drug monitoring/narrow therapeutic index drug monitoring : # Drug name : N/A # Route administered : N/A # Method of monitoring : N/A Extended Emergency Contact Information Primary Emergency Contact: Marzena Booth Mobile Relation: Spouse Secondary Emergency Contact: Maxi Booth Mobile Relation: Son [employer] Tom Booth : 1945 Primary Care Physician: Bre Flores DO The patient and/or family/surrogate voluntarily agreed to participate in ACP services. Patient s cognitive capacity: A+Ox3 Code Status: [X] [FULL CODE - Continue all advanced life support: CPR,intubation,invasive procedures] [_] [DNR-CCA - DO NOT do CPR, intubation] [_] [DNR-[place] - Comfort care only] [_] DNR form [was/was not] signed Summary of discussion: The patient health care POA/ surrogate is the following: . [Condition that instigated the ACP on this DOS, relevant PMH, functional status, goals of care, andwhom this was discussed with including names and relationship to the patient, and any relevant advance care documentation discussion] I answered all the patient/family questions that I could within the range and scope of the current medical situation. We discussed the medical conditions, risks, benefits, outcomes, and goals of careat this time for the patient's medical issues at hand in the face of the patient's chronic issues and current presentation. Total time spent: <5 minutes were spent discussing the patient's resuscitation status, advance care planning, and end of life care, with patient and/or family/surrogate. Rick Chow MD Division of Hospitalist Medicine [facility] [1] No past medical history on file. [2] No past surgical history on file. [3] No family history on file. [4] Current Facility-Administered Medications: labetalol (Normodyne,Trandate) injection 10 mg, 10 mg, IntraVENous, q10 min PRN, Vignesh Yates MD sodium chloride 0.9 % infusion, 50 mL/hr, IntraVENous, Continuous, Chuy Villatoro MD, Last Rate: 50 mL/hr at 05/11/25 1236, 50 mL/hr at 05/11/25 1236 Current Outpatient Medications: amLODIPine (Norvasc) 10 MG tablet, Take 1 tablet (10 mg) by mouth daily., Disp: , Rfl: aspirin 81 MG EC tablet, Take 2 tablets (162 mg) by mouth daily. Do not start before May 04, 2025., Disp: , Rfl: atorvastatin (Lipitor) 80 MG tablet, Take 80 mg by mouth daily., Disp: , Rfl: carvedilol (Coreg) 12.5 MG tablet, Take 12.5 mg by mouth 2 times daily (with meals)., Disp: , Rfl: doxazosin (Cardura) 2 MG tablet, Take 2 mg by mouth Nightly., Disp: , Rfl: empagliflozin (Jardiance) 25 MG, Take 25 mg by mouth daily., Disp: , Rfl: evolocumab (Repatha SureClick) 140 MG/ML injection, Inject 140 mg under the skin every 14 (fourteen) days., Disp: , Rfl: ezetimibe (Zetia) 10 MG tablet, Take 10 mg by mouth daily., Disp: , Rfl: glipiZIDE XL (Glucotrol XL) 2.5 MG 24 hr tablet, Take 2.5 mg by mouth daily., Disp: , Rfl: losartan (Cozaar) 100 MG tablet, Take 100 mg by mouth daily., Disp: , Rfl: melatonin 5 MG tablet, Take 1 tablet (5 mg) by mouth Nightly as needed (sleep)., Disp: 30 tablet, Rfl: metFORMIN (Glucophage) 850 MG tablet, Take 850 mg by mouth 2 times daily (with meals)., Disp: , Rfl: senna-docusate sodium (Senokot-S) 8.6-50 MG tablet, Take 2 tablets by mouth daily., Disp: , Rfl: sodium chloride ([place]) 0.65 % nasal spray, Administer 1 spray into each nostril every 2 hours as needed for congestion., Disp: , Rfl: [5] Allergies Allergen Reactions Fosinopril Unknown generic caused constipation Lovastatin Unknown generic causes constipation Azithromycin Rash [id number] History and physical note* Rick Chow MD - 05/11/2025 4:18 PM EDT Attending History and Physical Admit Date: 05/11/2025 PCP: Bre Flores DO CHIEF COMPLAINT: speech changes, choking Reason for Admission: elevated troponin History Obtained From: patient HISTORY OF PRESENT ILLNESS: Tom is a 79 y.o. 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 The patient has been at [facility] since his stroke (initial [facility] 12, now at 2). Today the nurse was giving him meds when he had a brief episode of choking and difficulty swallowing his meds. He was briefly in distress with difficulty breathing and his systolic blood pressure went up to the 180s. He was not able to communicate at that time so EMS was called and was brought to the ED. In the ED vital signs remarkable for pulse of 95 which later improved to 85 and initial blood pressure 165/89 which improved to 146/82. His symptoms resolved. Had a repeat modified barium swallow in the ED which was unremarkable and he was cleared for diet. His troponins were cycled with values of 9, 33, then 54. Given his increasing troponin is mid. I discussed case with ED provider and agreed to admit the patient I saw the patient in ED. Patient is known to me from his previous admission. He is doing significantly better than when he was discharged including improvement in his right sided strength and his speech. He currently feels well and denies any complaints. Past Medical History: Medical History[1] Past Surgical History: Surgical History[2] Social History: Social History Socioeconomic History Marital status: Spouse name: Not on file Number of children: Not on file Years of education: Not on file Highest education level: Not on file Occupational History Not on file Tobacco Use Smoking status: Not on file Smokeless tobacco: Not on file Substance and Sexual Activity Alcohol use: Not on file Drug use: Not on file Sexual activity: Not on file Other Topics Concern Not on file Social History Narrative Not on file Social Drivers of Health Financial Resource Strain: Not on file Food Insecurity: No Food Insecurity (05/01/2025) Hunger Vital Sign Worried About Running Out of Food in the Last Year: Never true Ran Out of Food in the Last Year: Never true Transportation Needs: No Transportation Needs (05/01/2025) PRAPARE - Transportation Lack of Transportation (Medical): No Lack of Transportation (Non-Medical): No Physical Activity: Not on file Stress: Not on file Social Connections: Not on file Intimate Partner Violence: Not At Risk (05/01/2025) Humiliation, Afraid, Rape, and Kick questionnaire Fear of Current or Ex-Partner: No Emotionally Abused: No Physically Abused: No Sexually Abused: No Housing Stability: Low Risk (05/01/2025) Housing Stability Vital Sign Unable to Pay for Housing in the Last Year: No Number of Times Moved in the Last Year: 0 Homeless in the Last Year: No Family History: Family History[3] Medications Prior to Admission: Current Medications[4] Medications Reconciliation: Medication were reviewed and verified as accurate with patient. Allergies: Allergies[5] REVIEW OF SYSTEMS: 10 point ROS obtained, as per HPI, otherwise NEG Vitals: BP (!) 146/82 (BP Location: Left arm, Patient Position: Lying) Pulse 85 Temp 36.9 C (98.5 F) (Oral) Resp 17 Ht 5' 10 (1.778 m) Wt 151 lb (68.5 kg) SpO2 98% BMI 21.67 kg/m BMI Classification: Normal Weight (BMI 18.5-24.9) Pulse Ox: SpO2 Av.5 % Min: 97 % Max: 98 % Supplemental O2: PHYSICAL EXAM: Physical Exam Vitals reviewed. Constitutional: General: He is not in acute distress. Appearance: He is not ill-appearing. HENT: Mouth/Throat: Mouth: Mucous membranes are moist. Pharynx: Oropharynx is clear. Eyes: Comments: Subconjunctival hematoma noted from previous admission in right eye, improved Cardiovascular: Rate and Rhythm: Normal rate and regular rhythm. Pulmonary: Effort: Pulmonary effort is normal. Breath sounds: Normal breath sounds. Abdominal: General: Bowel sounds are normal. Neurological: Mental Status: He is alert and oriented to person, place, and time. Cranial Nerves: No cranial nerve deficit. Sensory: No sensory deficit. Motor: Weakness (RUE) present. Comments: Mild dysarthria, improved DATA: CBC: Recent Labs 05/10/25 0530 05/11/25 0500 05/11/25 0945 WBC 8.7 8.5 9.1 RBC 3.87* 4.21* 4.11* HGB 11.2* 12.2* 12.0* HCT 34.4* 37.4* 36.0* MCV 88.9 88.8 87.6 RDW 14.5 14.5 14.5 PLT 336 341 350 BMP: Recent Labs 05/10/25 0530 05/11/25 0500 05/11/25 0958 NA 137 139 140 K 3.1* 3.6 3.7 CL 108* 108* -- CO2 24 21* -- BUN 26* 23 -- CREATININE 1.08 1.11 1.2 GLUCOSE 108 113 -- CALCIUM 8.8 9.2 -- ANIONGAP 5 10 -- LIVER PROFILE:No results for input(s): AST, ALT, BILITOT, ALKPHOS, PROT in the last 72 hours. No lab exists for component: LABALBU PT/INR: Recent Labs 05/11/25 0945 PROTIME 11.3 INR 1.1 CARDIAC ENZYMES: No results for input(s): TROPONINI in the last 72 hours. Procalcitonin: No results found for: PROCAL Urine Culture: No results found for this or any previous visit. COVID-19 PCR: No results for input(s): COVID19 in the last 72 hours. I reviewed: [x] laboratory results [x] radiographic results At the time of today's encounter. Pt was advised of the results. Data: NA (LOW: 2x CAT1 or independent historian MOD: 3x CAT1 or 1x CAT3 EXTENSIVE: 3x CAT1 and 1x CAT3) Assessment Discussed management with the ED provider and agree with hospitalization. Acute, acute on chronic, unstable/uncontrolled chronic problems/diagnoses: Elevated troponin Choking episode Speech changes now resolved Stable chronic problems affecting care, new non-acute diagnoses: Left MCA acute embolic infarct with petechial hemorrhagic transformation PAF not currently on DOAC Hypertension Hyperlipidemia Type 2 diabetes mellitus with hyperglycemia NAGMA likely due to NS infusion Hypocalcemia Leukocytosis Normocytic anemia CAD Hx CABG OSIEL HFpEF Plan As a result of the above findings & factors, the following mgmt was pursued: - Repeat troponin in a.m. -Telemetry - consult cardiology -Continue home medications -Continue 2x baby aspirin dose as recommended by neurology last admission - PT/OT - am labs, replace lytes prn - PT/OT/CM/SW - delirium precautions: increase activity - DVT prophylaxis: enoxaparin and encourage ambulation Complexity: Acute illness with systemic symptoms (MOD). Risk: Low risk diagnostic testing or treatment (LOW). Advance Directive: Prior Anticipated Discharge - Date - 05/12 - Location - Acute Rehab - Pending the following - cardiology recs Total time spent (which include face to face and non face to face encounters) : 65 minutes. Toxic drug monitoring/narrow therapeutic index drug monitoring : # Drug name : N/A # Route administered : N/A # Method of monitoring : N/A Extended Emergency Contact Information Primary Emergency Contact: Marzena Booth Mobile Relation: Spouse Secondary Emergency Contact: Maxi Booth Mobile Relation: Son [employer] Tom Booth : 1945 Primary Care Physician: Bre Flores DO The patient and/or family/surrogate voluntarily agreed to participate in ACP services. Patient s cognitive capacity: A+Ox3 Code Status: [X] [FULL CODE - Continue all advanced life support: CPR,intubation,invasive procedures] [_] [DNR-CCA - DO NOT do CPR, intubation] [_] [DNR-[place] - Comfort care only] [_] DNR form [was/was not] signed Summary of discussion: The patient health care POA/ surrogate is the following: . [Condition that instigated the ACP on this DOS, relevant PMH, functional status, goals of care, andwhom this was discussed with including names and relationship to the patient, and any relevant advance care documentation discussion] I answered all the patient/family questions that I could within the range and scope of the current medical situation. We discussed the medical conditions, risks, benefits, outcomes, and goals of careat this time for the patient's medical issues at hand in the face of the patient's chronic issues and current presentation. Total time spent: <5 minutes were spent discussing the patient's resuscitation status, advance care planning, and end of life care, with patient and/or family/surrogate. Rick Chow MD Division of Hospitalist Medicine [facility] [1] No past medical history on file. [2] No past surgical history on file. [3] No family history on file. [4] Current Facility-Administered Medications: labetalol (Normodyne,Trandate) injection 10 mg, 10 mg, IntraVENous, q10 min PRN, Vignesh Yates MD sodium chloride 0.9 % infusion, 50 mL/hr, IntraVENous, Continuous, Chuy Villatoro MD, Last Rate: 50 mL/hr at 05/11/25 1236, 50 mL/hr at 05/11/25 1236 Current Outpatient Medications: amLODIPine (Norvasc) 10 MG tablet, Take 1 tablet (10 mg) by mouth daily., Disp: , Rfl: aspirin 81 MG EC tablet, Take 2 tablets (162 mg) by mouth daily. Do not start before May 04, 2025., Disp: , Rfl: atorvastatin (Lipitor) 80 MG tablet, Take 80 mg by mouth daily., Disp: , Rfl: carvedilol (Coreg) 12.5 MG tablet, Take 12.5 mg by mouth 2 times daily (with meals)., Disp: , Rfl: doxazosin (Cardura) 2 MG tablet, Take 2 mg by mouth Nightly., Disp: , Rfl: empagliflozin (Jardiance) 25 MG, Take 25 mg by mouth daily., Disp: , Rfl: evolocumab (Repatha SureClick) 140 MG/ML injection, Inject 140 mg under the skin every 14 (fourteen) days., Disp: , Rfl: ezetimibe (Zetia) 10 MG tablet, Take 10 mg by mouth daily., Disp: , Rfl: glipiZIDE XL (Glucotrol XL) 2.5 MG 24 hr tablet, Take 2.5 mg by mouth daily., Disp: , Rfl: losartan (Cozaar) 100 MG tablet, Take 100 mg by mouth daily., Disp: , Rfl: melatonin 5 MG tablet, Take 1 tablet (5 mg) by mouth Nightly as needed (sleep)., Disp: 30 tablet, Rfl: metFORMIN (Glucophage) 850 MG tablet, Take 850 mg by mouth 2 times daily (with meals)., Disp: , Rfl: senna-docusate sodium (Senokot-S) 8.6-50 MG tablet, Take 2 tablets by mouth daily., Disp: , Rfl: sodium chloride ([place]) 0.65 % nasal spray, Administer 1 spray into each nostril every 2 hours as needed for congestion., Disp: , Rfl: [5] Allergies Allergen Reactions Fosinopril Unknown generic caused constipation Lovastatin Unknown generic causes constipation Azithromycin Rash documented in this [facility]07-17-2025 Consult note* Alesia Cueva MD - 05/11/2025 10:51 AM EDTAssociated Order(s): IP CONSULT TO NEUROLOGY; IP CONSULT TO STROKE TEAM; IP CONSULT TO NEUROLOGY; IP CONSULT TO STROKE TEAM STROKE TEAM NOTE Patient Name: Tom Booth Patient : 1945 Acct: [id number] Date of Admission: 05/11/2025 Room/Bed: PCP: Bre Flores DO Stroke team; Prehospital activation History of Present Ilness: 79 y.o. is right handed male with the chief Complaint of: , he was brought by EMS who had been called for reported worsening of his speech , drooling on his right side and worsening of his neurological problems Patient told me he had been given the morning pills, he felt he was chocking, difficulty swallowingand pain Nurse that was with him ( and I contacted on the phone ) reported that after she had given patientshis meds, he appeared in distress , difficulty breathing, his BP was 180s, she tried to ask him what was going on and he was not able to communicate with her for what she called the squad , she thought he was drooling Patient stated he was having problems breathing and felt chooking He is well known to me as I saw her also a recurrent stroke team while in the hospital before he was discharge . At that time his worsening consisted on decrease LOC and was do to low BP , Patient recovered to a NIHSS 12 , with severe expressive aphasia, some receptive speech and NIHSS 3on arm and 2 on the leg Patient comes today dramatically improved Onset time: last seen well; unclear short before coming ED arrival: please review the narrator Stroke teamactivation ; 09:45 NIHSS upon arrival: 1 speech, 1 arm 1 le 1 slurred .= 4 Associated symptoms: SOB and chest pain , difficulty swallowing This occurred in the setting of: recent left MCA territory infarction post tNk and attempted thrombectomy with HT , Current use of anticoagulants: NO If on anticoagulants when was last dose: no Preadmission secondary prevention antiplatelets and statins: REINA History of AF: non Contraindications for thrombolytic treatment: Yes Past Medical History: Medical History[1] Past Surgical History: Surgical History[2] Home Medications: Prior to Admission medications Medication Sig Start Date End Date Taking? Authorizing Provider amLODIPine (Norvasc) 10 MG tablet Take 1 tablet (10 mg) by mouth daily. 04/29/25 04/29/26 Rick Chow MD aspirin 81 MG EC tablet Take 2 tablets (162 mg) by mouth daily. Do not start before May 04, 2025. 05/04/25 05/04/26 Rick Chow MD atorvastatin (Lipitor) 80 MG tablet Take 80 mg by mouth daily. 03/07/25 Historical Provider, carvedilol (Coreg) 12.5 MG tablet Take 12.5 mg by mouth 2 times daily (with meals). 06/23/24 Historical Provider, doxazosin (Cardura) 2 MG tablet Take 2 mg by mouth Nightly. 10/11/24 Historical Provider, empagliflozin (Jardiance) 25 MG Take 25 mg by mouth daily. 07/06/24 Historical Provider, evolocumab (Repatha SureClick) 140 MG/ML injection Inject 140 mg under the skin every 14 (fourteen)days. 03/07/25 Historical Provider, ezetimibe (Zetia) 10 MG tablet Take 10 mg by mouth daily. 03/07/25 Historical Provider, glipiZIDE XL (Glucotrol XL) 2.5 MG 24 hr tablet Take 2.5 mg by mouth daily. 10/11/24 Historical Provider, losartan (Cozaar) 100 MG tablet Take 100 mg by mouth daily. 10/11/24 Historical Provider, melatonin 5 MG tablet Take 1 tablet (5 mg) by mouth Nightly as needed (sleep). 04/28/25 05/28/25 Rick Chow MD metFORMIN (Glucophage) 850 MG tablet Take 850 mg by mouth 2 times daily (with meals). 03/07/25 Historical Provider, senna-docusate sodium (Senokot-S) 8.6-50 MG tablet Take 2 tablets by mouth daily. 04/29/25 04/29/26 Rick Chow MD sodium chloride ([place]) 0.65 % nasal spray Administer 1 spray into each nostril every 2 hours as needed for congestion. 04/28/25 04/28/26 Rick Chow MD Current Hospital Medications: Current Medications[3] Continuous Infusions: Continuous Meds[4] Allergies: Fosinopril, Lovastatin, and Azithromycin Social History: TOBACCO: has no history on file for tobacco use. ETOH: has no history on file for alcohol use. RECREATIONAL DRUG USE: Social History Substance and Sexual Activity Drug Use Not on file FamilyHistory: :Unable to obtain, due to patient level of consciousness, no data on file, no family able to provide information Family History[5] ROS; :only that of swallowing difficulty , SOB and difficulty swallowing , Review of Systems Physical Examination: Patient Vitals for the past 8 hrs: BP Temp Temp src Pulse Resp SpO2 Height Weight 05/11/25 1031 123/64 -- -- 90 17 98 % 1.778 m (5' 10) 68.5 kg (151 lb) 05/11/25 0944 -- 36.9 C (98.5 F) Oral -- -- -- -- -- 05/11/25 0941 (!) 165/89 -- -- 95 18 97 % -- -- No intake/output data recorded. General Physical Examination: General: looked good , awake alert interactive cooperative smily HEENT:Normocephalic, atraumaticl CV: S1+S2, RRR, no MRG. Pulm:bilateral ronchae bases , Abdomen: Soft NT/ND. BS + Skin: brusing Extremities: third spacing Orthopedic limitation; Yes Pulses: Intact peripherally Carotid auscultation :No bruits Neurological Examination: Higher Functions: Mental Status Exam: Level of Alertness:Awake Orientation: Normal to self, time, place Memory: did not remember me Fund of Knowledge: Abnormal Language: followed all commands, responded with yes and no question appropriately , repeated but not welll , 2 but much better than before Dysarthria Present with wet voice but much better than prior Cranial Nerves: -II Visual acuity: normal -II Visual nation: normal -III Pupils (~ 3 mm OD, 3 mm OU) equal, round, reactive to light -III-IV- Extraocular Movements: intact -Nystagmus not present -Saccades and pursuits normal -V Facial sensation: intact Corneal's Intact bilateral -VII Facial strength: abnormal did not see any significant assymmetry , to me it was normal -VIII Hearing: abnormal mild decreased -IX-X- Gag reflex present -X Palate:abnormal 'poor visualization -XI Shoulder shrug: abnormal decreased on the right but better than prior -XII Tongue movement: intact Funduscopic Exam: normal, no edema or exudates both eyes Motor Examination: Tone after evaluation of 4 limbs, the following findings applied: Mid decreaed on his right side , . . -Bulk: normal -Muscle Stretchafter evaluation of all limbs, and axial musculature the following findings applied: Drift: drigt on his right arm and leg but able to keep it for 10 second . -Reflexes: after evaluation of 4 limbs, the following findings applied ; Abnormal -Plantar responce: Flexor bilaterally Sensory appears normal but limited reliability, Coordination: Arms Normal finger to nose Legs Intact heel knee carney testing Tremors not present Gait Had been able to walk in rehab for the last 2 days , not attempted in the ED do to safety NIHSS 1a Level of consciousness: 0=alert; keenly responsive 1b. LOC questions: 0=Performs both tasks correctly 1c. LOC commands: 0=Performs both tasks correctly 2. Best Gaze: 0=normal 3. Visual: 0=No visual loss 4. Facial Palsy: 0=Normal symmetric movement 5a. Motor left arm: 0=No drift, limb holds 90 (or 45) degrees for full 10 seconds 5b. Motor right arm: 1=Drift, limb holds 90 (or 45) degrees but drifts down before full 10 seconds:does not hit bed 6a. motor left le=No drift, limb holds 90 (or 45) degrees for full 10 seconds 6b Motor right le=Drift, limb holds 90 (or 45) degrees but drifts down before full 10 seconds: does not hit bed 7. Limb Ataxia: 0=Absent 8. Sensory: 0=Normal; no sensory loss 9. Best Language: 2 10. Dysarthria: 1=Mild to moderate, patient slurs at least some words and at worst, can be understood with some difficulty 11. Extinction and Inattention: 0=No abnormality 12. Distal motor function: 0=Normal Total: 5 He was 14 last time I saw him Pre-admission Modified Pima Score: 3 __ 0 No symptoms at all __ 1 No significant disability despite symptoms; able to carry out all usual duties and activities __ 2 Slight disability; unable to carry out all previous activities, but able to look after own affairs without assistance __ 3 Moderate disability; requiring some help, but able to walk without assistance __ 4 Moderately severe disability; unable to walk without assistance and unable to attend to own bodily needs without assistance __ 5 Severe disability; bedridden, incontinent and requiring constant nursing care and attention Ancillary Data: Labs: Recent Results (from the past 24 hours) CBC Collection Time: 05/11/25 5:00 AM Result Value Ref Range Auto WBC 8.5 3.6 - 10.7 10*3/uL RBC 4.21 (L) 4.40 - 5.90 10*6/uL Hemoglobin 12.2 (L) 13.0 - 18.0 g/dL Hematocrit 37.4 (L) 40.0 - 52.0 % MCV 88.8 77.0 - 99.0 fL MCH 29.0 26.0 - 34.0 pg MCHC 32.6 30.5 - 36.0 % RDW 14.5 11.5 - 15.0 % Platelets 341 140 - 440 10*3/uL MPV 9.4 9.0 - 12.7 fL Basic metabolic panel Collection Time: 05/11/25 5:00 AM Result Value Ref Range SODIUM 139 136 - 145 mmol/L POTASSIUM 3.6 3.5 - 5.1 mmol/L CHLORIDE 108 (H) 98 - 107 mmol/L CARBON DIOXIDE 21 (L) 23 - 31 mmol/L UREA NITROGEN 23 9 - 23 mg/dL CREATININE 1.11 0.72 - 1.25 mg/dL GLUCOSE 113 82 - 115 mg/dL CALCIUM 9.2 8.8 - 10.0 mg/dL ANION GAP 10 3 - 13 mmol/L eGFR 68.0 >60.0 mL/min/1.73m*2 CBC Collection Time: 05/11/25 9:45 AM Result Value Ref Range Auto WBC 9.1 3.6 - 10.7 10*3/uL RBC 4.11 (L) 4.40 - 5.90 10*6/uL Hemoglobin 12.0 (L) 13.0 - 18.0 g/dL Hematocrit 36.0 (L) 40.0 - 52.0 % MCV 87.6 77.0 - 99.0 fL MCH 29.2 26.0 - 34.0 pg MCHC 33.3 30.5 - 36.0 % RDW 14.5 11.5 - 15.0 % Platelets 350 140 - 440 10*3/uL MPV 8.9 (L) 9.0 - 12.7 fL Serial Troponin, High Sensitivity Collection Time: 05/11/25 9:45 AM Result Value Ref Range Troponin HS Serial Baseline 9 <=35 ng/L PROTIME/INR & PTT Collection Time: 05/11/25 9:45 AM Result Value Ref Range PROTHROMBIN TIME 11.3 9.0 - 12.0 s INR 1.1 0.9 - 1.1 APTT 28.9 20.0 - 30.5 s ECG 12 lead if not already done by Squad Collection Time: 05/11/25 9:46 AM Result Value Ref Range Heart Rate 98 bpm QRSD Interval 146 ms QT Interval 376 ms QTC Interval 480 ms P Boaz 49 degrees QRS Boaz 12 degrees T Wave Boaz 5 degrees CA Interval 204 ms BMPI iSTAT (Lab Only) Collection Time: 05/11/25 9:58 AM Result Value Ref Range Sodium, WB 140 133 - 145 mmol/L POTASSIUM,WB 3.7 3.4 - 5.1 mmol/L CHLORIDE,WB 105 98 - 114 mmol/L CO2 WHOLE BLOOD 21 21 - 29 mmol/L ANION GAP 14.00 (H) 3.00 - 13.00 GLUCOSE, WB 213 (H) 70 - 100 mg/dL UREA NITROGEN, WB 21 4 - 22 mg/dL eGFR, Whole Blood 61.9 CREATININE, WB 1.2 0.6 - 1.3 mg/dL CALCIUM,IONIZED 4.90 4.30 - 5.20 mg/dl No results for input(s): PH, PO2, PCO2, HCO3, O2SAT in the last 72 hours. No lab exists for component: BE Recent Labs 05/11/25 0945 INR 1.1 Radiology: CT head: no acute findings CTA: no evidence of obstructions If CTA was ASSESSMENT - This is NOT a new stroke or TIA - Patient had difficulty swallowing sensation of chocking and chest pain that increased his BP and led for him to feel he could not talk , these all resolved when he swallowed and that sensation stopped , he denied any new neurological compalint He however complaints of - Cought and chest pain when breathing , I have discussed with ED team to ensure chest XR and r/o pneumonia I have also talked to Dr. 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 I reviewed the chart including MAR, labs, neuroimaging, other imaging studies and discussed my diagnostic impression and patient's plan of care with my TREMAINE/resident/ Fellow , student and the consulting team and patient's family members/surrogate decision makers (in cases where the patient is incapacitated and unable to participate in their own care). [x] Encounter Face to Face [x] Consult [x] Stroke team [x] 60 [x] No longer neurological follow up needed, will sign off, let us know if need for further assistance Thank you Bre Flores DO for the opportunity to be involved in this patient's care. [1] No past medical history on file. [2] No past surgical history on file. [3] Current Facility-Administered Medications: labetalol (Normodyne,Trandate) injection 10 mg, 10 mg, IntraVENous, q10 min PRN, Vignesh Yates MD sodium chloride 0.9 % bolus 250 mL, 250 mL, IntraVENous, Once, Chuy Villatoro MD, Last Rate: 250 mL/hr at 05/11/25 1034, 250 mL at 05/11/25 1034 sodium chloride 0.9 % infusion, 50 mL/hr, IntraVENous, Continuous, Chuy Villatoro MD Current Outpatient Medications: amLODIPine (Norvasc) 10 MG tablet, Take 1 tablet (10 mg) by mouth daily., Disp: , Rfl: aspirin 81 MG EC tablet, Take 2 tablets (162 mg) by mouth daily. Do not start before May 04, 2025., Disp: , Rfl: atorvastatin (Lipitor) 80 MG tablet, Take 80 mg by mouth daily., Disp: , Rfl: carvedilol (Coreg) 12.5 MG tablet, Take 12.5 mg by mouth 2 times daily (with meals)., Disp: , Rfl: doxazosin (Cardura) 2 MG tablet, Take 2 mg by mouth Nightly., Disp: , Rfl: empagliflozin (Jardiance) 25 MG, Take 25 mg by mouth daily., Disp: , Rfl: evolocumab (Repatha SureClick) 140 MG/ML injection, Inject 140 mg under the skin every 14 (fourteen) days., Disp: , Rfl: ezetimibe (Zetia) 10 MG tablet, Take 10 mg by mouth daily., Disp: , Rfl: glipiZIDE XL (Glucotrol XL) 2.5 MG 24 hr tablet, Take 2.5 mg by mouth daily., Disp: , Rfl: losartan (Cozaar) 100 MG tablet, Take 100 mg by mouth daily., Disp: , Rfl: melatonin 5 MG tablet, Take 1 tablet (5 mg) by mouth Nightly as needed (sleep)., Disp: 30 tablet, Rfl: metFORMIN (Glucophage) 850 MG tablet, Take 850 mg by mouth 2 times daily (with meals)., Disp: , Rfl: senna-docusate sodium (Senokot-S) 8.6-50 MG tablet, Take 2 tablets by mouth daily., Disp: , Rfl: sodium chloride ([place]) 0.65 % nasal spray, Administer 1 spray into each nostril every 2 hours as needed for congestion., Disp: , Rfl: [4] sodium chloride, 50 mL/hr [5] No family history on file. [facility] Work Phone: [phone] Physician Emergency department Note* Chuy Villatoro MD - 05/11/2025 9:36 AM EDT EMERGENCY DEPARTMENT ENCOUNTER Pt Name: Tom Booth Birthdate 1945 Date of evaluation: 05/11/2025 ED Provider: Chuy Villatoro MD CHIEF COMPLAINT Chief Complaint Patient presents with Facial Droop Pt has hx of right side weakness and right facial droop, hx stroke. Patient is coming from [facility] for worsening facial droop and drooling, [id number]. HISTORY OF PRESENT ILLNESS (Location/Symptom, Timing/Onset, Context/Setting, Quality, Duration, Modifying Factors, Severity) Note limiting factors. I wore appropriate PPE for the entirety of this encounter. HPI Tom Booth is a 79 y.o. who presents to the emergency department with concern for stroke. Patient is currently staying in acute rehab after having a stroke on 04/21/2025 for which he received TNK. Nursing staff today noticed that his previous deficits which were right sided were worse today. They noticed worsening right-sided facial droop with drooling, right upper extremity weakness and some confusion. Patient is having word finding difficulty, appears to be oriented however is unable totell me what is going on, gets frustrated because he cannot find the right word. He denies any painincluding chest pain, shortness of breath, abdominal pain, nausea, vomiting, diarrhea or any other specific complaints. Nursing Notes were reviewed. Limitations to history: Dysarthria Outside historians: EMS REVIEW OF SYSTEMS Review of Systems Pertinent positives and negatives as per HPI PAST MEDICAL HISTORY Medical History[1] SURGICAL HISTORY Surgical History[2] CURRENT MEDICATIONS Previous Medications AMLODIPINE (NORVASC) 10 MG TABLET Take 1 tablet (10 mg) by mouth daily. ASPIRIN 81 MG EC TABLET Take 2 tablets (162 mg) by mouth daily. Do not start before May 04, 2025. ATORVASTATIN (LIPITOR) 80 MG TABLET Take 80 mg by mouth daily. CARVEDILOL (COREG) 12.5 MG TABLET Take 12.5 mg by mouth 2 times daily (with meals). DOXAZOSIN (CARDURA) 2 MG TABLET Take 2 mg by mouth Nightly. EMPAGLIFLOZIN (JARDIANCE) 25 MG Take 25 mg by mouth daily. EVOLOCUMAB (REPATHA SURECLICK) 140 MG/ML INJECTION Inject 140 mg under the skin every 14 (fourteen)days. EZETIMIBE (ZETIA) 10 MG TABLET Take 10 mg by mouth daily. GLIPIZIDE XL (GLUCOTROL XL) 2.5 MG 24 HR TABLET Take 2.5 mg by mouth daily. LOSARTAN (COZAAR) 100 MG TABLET Take 100 mg by mouth daily. MELATONIN 5 MG TABLET Take 1 tablet (5 mg) by mouth Nightly as needed (sleep). METFORMIN (GLUCOPHAGE) 850 MG TABLET Take 850 mg by mouth 2 times daily (with meals). SENNA-DOCUSATE SODIUM (SENOKOT-S) 8.6-50 MG TABLET Take 2 tablets by mouth daily. SODIUM CHLORIDE (OCEAN) 0.65 % NASAL SPRAY Administer 1 spray into each nostril every 2 hours as needed for congestion. ALLERGIES Fosinopril, Lovastatin, and Azithromycin FAMILY HISTORY Family History[3] SOCIAL HISTORY Social History[4] PHYSICAL EXAM ED Triage Vitals Temp Heart Rate Resp BP 05/11/25 0944 05/11/25 0941 05/11/2541 05/11/25940 36.9 C (98.5 F) 95 18 (!) 165/89 SpO2 Temp Source Heart Rate Source Patient Position 05/11/25 0941 05/11/25 0944 05/11/25940 -- 97 % Oral Monitor BP Location FiO2 (%) -- -- Physical Exam Constitutional: Appearance: Normal appearance. Cardiovascular: Rate and Rhythm: Normal rate and regular rhythm. Pulses: Normal pulses. Heart sounds: Normal heart sounds. Pulmonary: Effort: Pulmonary effort is normal. Breath sounds: Normal breath sounds. Abdominal: General: Abdomen is flat. Palpations: Abdomen is soft. Tenderness: There is no abdominal tenderness. Neurological: General: No focal deficit present. Mental Status: He is alert. Cranial Nerves: Cranial nerve deficit present. Sensory: No sensory deficit. Motor: Weakness present. Coordination: Coordination normal. Comments: On mental status, word finding difficulty, dysarthria and aphasia, right upper extremity weakness compared to left, please see NIH stroke scale for full NIHSS DIAGNOSTIC RESULTS RADIOLOGY (Per Emergency Physician): Interpretation per the Radiologist below, if available at the time of this note: FL modified barium with video and speech Final Result No vocal cord penetration or airway aspiration. Please refer to the speech pathologist's report for additional comments and recommendation. Report Dictated on Electronically Signed By: Lexii Fong MD Electronically Signed Date/Time: 05/11/2025 2:31 PM EDT XR chest 2 views Final Result No acute consolidative process. Report Dictated on Electronically Signed By: Jorge Silva DR Electronically Signed Date/Time: 05/11/2025 11:02 AM EDT CTA head neck angio w and wo IV contrast Final Result 1. No acute intracranial hemorrhage or territorial infarct. 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 2. No large vessel occlusion seen in the head or neck. Mild to moderate multifocal narrowing in theleft MCA M2 and M3 superior segment branches. 3. Nonspecific asymmetric prominence of the right tongue base, which may be due to neurologic deficit among other possibilities. Recommend correlation with physical examination. 4. 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 5. 1.7 x 1.0 cm nodular density along the posterior inferior right thyroid, which may be extrathyroidal no nodule or parathyroid adenoma. Ultrasound and/or nuclear medicine parathyroid scan could be considered for further evaluation as clinically warranted. CRITICAL TEST RESULT COMMUNICATION: Critical findings discussed with Dr. Cueva at 05/11/2025 0956 AM EDT. Report Dictated on Electronically Signed By: Jorge Silva DR Electronically Signed Date/Time: 05/11/2025 10:[address] head wo IV contrast Final Result 1. No acute intracranial hemorrhage or territorial infarct. 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 2. No large vessel occlusion seen in the head or neck. Mild to moderate multifocal narrowing in theleft MCA M2 and M3 superior segment branches. 3. Nonspecific asymmetric prominence of the right tongue base, which may be due to neurologic deficit among other possibilities. Recommend correlation with physical examination. 4. 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 5. 1.7 x 1.0 cm nodular density along the posterior inferior right thyroid, which may be extrathyroidal no nodule or parathyroid adenoma. Ultrasound and/or nuclear medicine parathyroid scan could be considered for further evaluation as clinically warranted. CRITICAL TEST RESULT COMMUNICATION: Critical findings discussed with Dr. Cueva at 05/11/2025 0956 AM EDT. Report Dictated on Electronically Signed By: Jorge Silva DR Electronically Signed Date/Time: 05/11/2025 10:20 AM EDT LABS: Labs Reviewed CBC (HEMOGRAM) - Abnormal Result Value Auto WBC 9.1 RBC 4.11 (*) Hemoglobin 12.0 (*) Hematocrit 36.0 (*) MCV 87.6 MCH 29.2 MCHC 33.3 RDW 14.5 Platelets 350 MPV 8.9 (*) BMPI ISTAT (LAB ONLY) - Abnormal Sodium, WB 140 POTASSIUM,WB 3.7 CHLORIDE,WB 105 CO2 WHOLE BLOOD 21 ANION GAP 14.00 (*) GLUCOSE, WB 213 (*) UREA NITROGEN, WB 21 eGFR, Whole Blood 61.9 CREATININE, WB 1.2 CALCIUM,IONIZED 4.90 Narrative: Performed by: [place] [id number] CLIA ID: [id number] HIGH SENSITIVITY TROPONIN, SERIAL BASELINE - Abnormal Troponin HS Serial Baseline 54 (*) POCT GLUCOSE METER UNSOLICITED RESULTS - Abnormal Glucose 113 (*) Narrative: Performed by: [address] [address] CLIA ID: [id number] HIGH SENSITIVITY TROPONIN, SERIAL BASELINE - Normal Troponin HS Serial Baseline 9 PROTIME & APTT - Normal PROTHROMBIN TIME 11.3 INR 1.1 APTT 28.9 HIGH SENSITIVITY TROPONIN, SERIAL, SECOND TEST - Normal 2h Troponin HS (Serial 2nd Troponin) 33 HIGH SENSITIVITY TROPONIN, SERIAL, SECOND TEST POCT GLUCOSE METER POCT GLUCOSE METER All other labs were within normal range or not returned as of this dictation. EMERGENCY DEPARTMENT COURSE and DIFFERENTIAL DIAGNOSIS/MDM: Vitals: Vitals: 05/11/25 0944 05/11/25 1031 05/11/25 1230 05/11/25 1432 BP: 123/64 138/70 (!) 146/82 BP Location: Left arm Left arm Patient Position: Lying Lying Pulse: 90 81 85 Resp: Temp: 36.9 C (98.5 F) TempSrc: Oral SpO2: 98% 97% 98% Weight: 68.5 kg (151 lb) Height: 1.778 m (5' 10) Medications labetalol (Normodyne,Trandate) injection 10 mg (has no administration in time range) sodium chloride 0.9 % infusion (50 mL/hr IntraVENous New Bag 05/11/25 1236) aspirin EC tablet 325 mg (has no administration in time range) sodium chloride 0.9 % bolus 250 mL (0 mL IntraVENous Stopped 05/11/25 1236) iopamidol (Isovue-370) 76 % injection 100 mL (100 mL IntraVENous Given 05/11/25 0952) barium sulfate (Varibar THIN Liquid) 40 % suspension 30 mL (30 mL Oral Given 05/11/25 1346) ED Course as of 05/11/25 1555 [facility] May 11, 2025 1037 Spoke with stroke attending, she states that she saw this patient at his last stroke and feelsthat he is at his baseline. States that she feels he was aspirating while eating. Requesting chest x-ray and swallow study. [AK] 1413 Second troponin elevated at 33, third to be obtained [AK] 1527 Troponin continuing to rise, now 54, will plan for admission to medicine [AK] ED Course User Index [AK] Chuy Villatoro MD Diagnoses as of 05/11/25 1555 NSTEMI (non-ST elevated myocardial infarction) (HCC) SCREENINGS NIH Stroke Scale 1A. Level of Consciousness: Alert, Keenly Responsive 1B. Ask Month and Age: No Questions Right 1C. Blink Eyes & Squeeze Hands: Performs Both Tasks 2. Best Gaze: Normal 3. Visual: No Visual Loss 4. Facial Palsy: Partial Paralysis 5A. Motor - Left Arm: No Drift 5B. Motor - Right Arm: Some Effort Against [place] 6A. Motor - Left Leg: No Drift 6B. Motor - Right Leg: Drift 7. Limb Ataxia: Present in One Limb 8. Sensory Loss: Mkaz-[id number] Sensory Loss 9. Best Language: Severe Aphasia 10. Dysarthria: [id number]-[id number] Dysarthria 11. Extinction and Inattention: No Abnormality NIH Stroke Scale: 12 MDM elements: The patient presented with chief complaint of stroke. The differential diagnosis associated with this patient's presentation includes stroke, ACS, sepsis. Our workup consisted of ordering/reviewing: Stroke workup, CT head, CTA head and neck, cardiac workup and team stroke. Patient is in agreement with this plan. EKG and independently interpreted, sinus rhythm, regular rate, right bundle branch block, no ST elevations meeting STEMI criteria, nonspecific EKG PROCEDURES: Unless otherwise noted below, none Procedures CRITICAL CARE TIME Total Critical Care time was 15 minutes, excluding separately reportable procedures. There was a high probability of clinically significant/life threatening deterioration in the patient's condition which required my urgent intervention. FINAL IMPRESSION 1. NSTEMI (non-ST elevated myocardial infarction) (HCC) DISPOSITION Admit 05/11/2025 03:54:09 PM PATIENT REFERRED TO: No follow-up provider specified. DISCHARGE MEDICATIONS: New Prescriptions No medications on file (Comment: Please note this report has been produced using speech recognition software and may contain errors related to that system including errors in grammar, punctuation, and spelling, as well as words and phrases that may be inappropriate. If there are any questions or concerns please feel freeto contact the dictating provider for clarification.) Chuy Villatoro MD (electronically signed) Emergency Medicine Provider [1] No past medical history on file. [2] No past surgical history on file. [3] No family history on file. [4] Social History Socioeconomic History Marital status: Social Drivers of Health Food Insecurity: No Food Insecurity (05/01/2025) Hunger Vital Sign Worried About Running Out of Food in the Last Year: Never true Ran Out of Food in the Last Year: Never true Transportation Needs: No Transportation Needs (05/01/2025) PRAPARE - Transportation Lack of Transportation (Medical): No Lack of Transportation (Non-Medical): No Intimate Partner Violence: Not At Risk (05/01/2025) Humiliation, Afraid, Rape, and Kick questionnaire Fear of Current or Ex-Partner: No Emotionally Abused: No Physically Abused: No Sexually Abused: No Housing Stability: Low Risk (05/01/2025) Housing Stability Vital Sign Unable to Pay for Housing in the Last Year: No Number of Times Moved in the Last Year: 0 Homeless in the Last Year: No Chuy Villatoro MD 05/11/25 1557 [id number] Telephone encounter Note* Telephone Encounter - Celia Angelito - 05/08/2025 10:48 AM EDT I LVM for pt's to call me back to schedule EM & appt with Dr. Yancey [id number] Telephone encounter Note* Telephone Encounter - CAN Parker CNP - 05/02/2025 11:03 AM EDT EM ordered Please schedule follow up with Dr Yancey [id number] Telephone encounter Note* Telephone Encounter - CAN Espinoza CNP - 05/02/2025 8:07 AM EDT Patient was referred to the cryptogenic stroke program by neurology he was discharged to [facility] on 05/01/2025 and will need a 30-day event monitor and follow-up with Dr. Yancey. His Marzena Booth is his contact center rep she can be reached at [phone]. [id number] History of Present illness Narrative* CAN Zuñiga CNP - 05/01/2025 1:14 PM EDT Endovascular Neurology Note Patient Name:Tom Booth Patient : 1945 Acct: [id number] Date of Admission: 04/21/2025 [facility]: [facility] PCP: Bre Flores DO HPI: Left MCA syndrome transfer from [facility] s/p TNK and thrombectomy. New Complaint: NIH continues to improve. Planning to go to acute rehab today Current anticoagulants ASA ROS: Review of Systems Constitutional: Positive for activity change. HENT: Negative. Musculoskeletal: Positive for gait problem. Neurological: Positive for facial asymmetry, speech difficulty and weakness. General Exam: Awake and alert RRR Respirations nonlabored Abdomen soft Brief Neuro Exam: Awake and alert Able to tell me name and month Facial asymmetry Able to raise right upper and lower extremity from bed independently Altered sensation Groin: Right groin puncture site soft and compressible with minimal bruising Current Hospital Medications: Current Medications[1] Continuous Infusions: Continuous Meds[2] Allergies: Fosinopril, Lovastatin, and Azithromycin ASSESSMENT L MCA occlusion s/p TNK and mechanical thrombectomy Aphasia Right hemiparesis Dysarthria - all improving PLAN/RECOMMENDATIONS: - will plan for outpatient follow up in 6- 8 weeks in endovascular clinic - continue aspirin 81 mg - plan for acute rehab today Patient discussed with Dr. Ingram [1] Current Facility-Administered Medications: acetaminophen (Tylenol) tablet 650 mg, 650 mg, Oral, q6h PRN, 650 mg at 04/30/25 1854 OR acetaminophen (Tylenol) suppository 650 mg, 650 mg, Rectal, q6h PRN, Se Sherman DO amLODIPine (Norvasc) tablet 10 mg, 10 mg, Oral, Daily, Rick Chow MD, 10 mg at 05/01/25 09 aspirin EC tablet 81 mg, 81 mg, Oral, Daily, Rick Chow MD, 81 mg at 05/01/25926 atorvastatin (Lipitor) tablet 80 mg, 80 mg, Oral, Daily, Se Sherman DO, 80 mg at 04/30/252113 bisacodyl (Dulcolax) suppository 10 mg, 10 mg, Rectal, Daily PRN, Se Sherman DO carvedilol (Coreg) tablet 12.5 mg, 12.5 mg, Oral, BID WC, Rick Chow MD, 12.5 mg at 926 [Held by provider] clopidogrel (Plavix) tablet 75 mg, 75 mg, Oral, Daily, Se Sherman DO,75 mg at 04/28/25 0823 dextrose 5 % infusion, 100 mL/hr, IntraVENous, PRN, Se Sherman DO dextrose 50 % solution 12.5 g, 12.5 g, IntraVENous, PRN, Se Sherman DO enoxaparin (Lovenox) syringe 40 mg, 40 mg, SubCUTAneous, Daily, Rick Chow MD, 40 mg at 05/01/25 0928 glucagon (human recombinant) injection 1 mg, 1 mg, IntraMUSCular, PRN, Se Sherman DO glucose oral gel 15 g, 15 g, Oral, PRN, Se Sherman DO hydrALAZINE (Apresoline) injection 10 mg, 10 mg, IntraVENous, q1h PRN, Rick Chow MD Insulin Lispro (Humalog) injection 0-6 Units, 0-6 Units, SubCUTAneous, TID WC, 2 Units at 05/01/25 1207 AND [DISCONTINUED] Insulin Lispro (Humalog) injection 0-6 Units, 0-6 Units, SubCUTAneous, Nightly, Paul Montano DO labetalol (Normodyne,Trandate) injection 10 mg, 10 mg, IntraVENous, q10 min PRN, Se Sherman DO, 10 mg at 04/29/25 0452 losartan (Cozaar) tablet 100 mg, 100 mg, Oral, Daily, Tasha Gonzalez, JIVE DEVELOPER - SOAKERS SUPERVISOR, 100 mg at 05/01/25 0926 melatonin tablet 5 mg, 5 mg, Oral, Nightly, Rick Chow MD, 5 mg at 04/30/252113 ondansetron ODT (Zofran-ODT) disintegrating tablet 4 mg, 4 mg, Oral, q8h PRN OR ondansetron (Zofran) injection 4 mg, 4 mg, IntraVENous, q6h PRN, Se Shreman DO polyethylene glycol (PEG) 3350 (Miralax) packet 17 g, 17 g, Oral, Daily PRN, Se Sherman DO senna-docusate sodium (Senokot-S) 8.6-50 MG tablet 2 tablet, 2 tablet, Oral, Daily, Rick Chow MD, 2 tablet at 04/30/25 0820 sodium chloride ([place]) 0.65 % nasal spray 1 spray, 1 spray, Each Nostril, q2h PRN, Rick Chow MD sodium chloride 0.9 % infusion, 50 mL/hr, IntraVENous, Continuous, Rick Chow MD, Last Rate:50 mL/hr at 04/30/25 1601, 50 mL/hr at 04/30/25 1601 [2] sodium chloride, 50 mL/hr, Last Rate: 50 mL/hr (04/30/25 1601) * Rick Chow MD - 05/01/2025 9:20 AM EDT Hospitalist Progress Note 05/01/2025 Subjective: Admit Date: 04/21/2025 PCP: Bre Flores DO Room#: W3-335/W3-335 A BRIEF HOSPITAL COURSE: Mr. Tom Booth 79-year-old male with past medical history of CAD status post CABG in 2019 onaspirin monotherapy, paroxysmal atrial fibrillation not on anticoagulation prior to hospital admission, heart failure with preserved ejection fraction (66% 04/21/2025 TTE), hypertension, type 2 diabetes mellitus, CKD 3, history of prostate carcinoma in situ, and OSIEL on PAP therapy who presented to outside hospital emergency department on 04/21. Initial deficits: Aphasia, right upper and lower extremity weakness, right-sided facial droop, and right-sided extinction. Initial NIH was calculated at 18. Left MCA infarct. Given TNK around 2116 and transferred to [facility] for thrombectomy. M2-proximal M3 dysfunction and stent retrieval after first pass. Found to have petechial hemorrhagic transformation on MRI from 629. Head CT performed morning of 04/25/2025, stable. He was DC to the [facility] 04/26. Isosorbide was stopped due to stroke - consider resuming as outpatient. BP medications were adjusted for high BP with improvement. On 04/28 orbital hemorrhage noted right eye. CT head showed orbital hemorrhage and known stroke. ASA/Plavix/Lovenox held. He was observed off it. Neurology recommended stopping plavix, resuming Lovenox then 5 days from today increase the dose of ASA to 2 x 81 mg (assuming no issues). Patient did have POS fecal occult - Hb was stable so no need to scope per GI. Interval History: 05/01: No acute events overnight. No overt bleeding. Hb stable. Will resume ASA and Lovenox. D/W family. No plan for scope by GI. 04/30: No acute events overnight. Interactive today. Will need re-authorizaton. D/W family. All questions answered. No CP or SOB. Vision improving in right eye. addendum -- fecal occult POS, hold asa and lovenox, consult gi 04/29: Yesterday orbital hemorrhage noted right eye. CT head showed orbital hemorrhage and known stroke. ASA/Plavix/Lovenox held. He was seen by ophthalmology and Subconjunctival hemorrhage wsa diagnosed. He was observed off it. Neurology recommended stopping plavix, resuming Lovenox today, and asa 04/30, then 5 days from today (05/04) increase the dose of ASA to 2 x 81 mg (assuming no issues). D/W with - sleeping today but obeys commands without difficulty - likely due to poor sleep at night. 04/28: BP better controlled. No acute events overnight . Plan DC today. No complaints. D/W patient, nurse, and . 04/27: No acute events overnight. Minimal improvement in strength. D/W . BP not controlled and will titrate BP medications. requested PT and or move to chair. 04/26: Patient with dysarthria - but speech is improving. He has minimal movement RLE. He has no feeling or strength in RUE. He denies CP, SOB, or other symptoms. No overnight issues. Case and plan discussed with patient and bedside nurse. All questions answered. Adult diet Regular; 4 carb choices (60 gm/meal) 24HR INTAKE/OUTPUT: Intake/Output Summary (Last 24 hours) at 05/01/2025 0920 Last data filed at 05/01/2025 0620 Gross per 24 hour Intake 250 ml Output -- Net 250 ml Past Medical History: Medical History[1] LABS: CBC: Recent Labs 04/29/25 0023 04/30/25 0018 05/01/25 0106 WBC 12.3* 12.0* 11.6* RBC 4.43 4.08* 4.04* HGB 12.9* 11.7* 11.6* HCT 39.1* 36.0* 35.1* MCV 88.3 88.2 86.9 RDW 14.3 14.0 13.7 PLT 261 257 263 BMP: Recent Labs 04/29/25 0023 04/30/25 0018 05/01/25 0106 NA 138 136 137 K 4.1 4.1 3.7 CL 107 108* 108* CO2 21* 20* 21* BUN 40* 40* 34* CREATININE 0.99 1.02 0.84 GLUCOSE 192* 208* 198* CALCIUM 9.2 8.8 8.8 ANIONGAP 10 8 8 LIVER PROFILE:No results for input(s): AST, ALT, BILITOT, ALKPHOS, PROT in the last 72 hours. No lab exists for component: LABALBU PT/INR: No results for input(s): PROTIME, INR in the last 72 hours. CARDIAC ENZYMES: No results for input(s): TROPONINI in the last 72 hours. Procalcitonin: No results found for: PROCAL COVID-19 PCR: No results for input(s): COVID19 in the last 72 hours. Objective: Vitals: BP 159/89 (BP Location: Right arm, Patient Position: Lying) Pulse 90 Temp 36.4 C (97.6 F) (Temporal) Resp 18 Ht 5' 10 (1.778 m) Wt 151 lb 3.2 oz (68.6 kg) SpO2 95% BMI 21.69 kg/m Pulse Ox: SpO2 Av.2 % Min: 93 % Max: 95 % Supplemental O2: Physical Exam Vitals reviewed. Constitutional: General: He is not in acute distress. Comments: Obeys commands, sleepy HENT: Head: Normocephalic and atraumatic. Mouth/Throat: Mouth: Mucous membranes are moist. Pharynx: Oropharynx is clear. Eyes: Comments: Subconjunctival hemorrhage right eye - improved Cardiovascular: Rate and Rhythm: Normal rate and regular rhythm. Pulmonary: Effort: Pulmonary effort is normal. Breath sounds: Normal breath sounds. Abdominal: Palpations: Abdomen is soft. Musculoskeletal: Right lower leg: No edema. Left lower leg: No edema. Neurological: Sensory: Sensory deficit (RUE numbness) present. Motor: Weakness (right sided weakness) present. Comments: Dysarthria - says some words well Psychiatric: Mood and Affect: Mood normal. 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 PAF not currently on DOAC Hypertension Subconjunctival hemorrhage Hyperlipidemia Type 2 diabetes mellitus with hyperglycemia NAGMA likely due to NS infusion Hypocalcemia Leukocytosis Normocytic anemia Fecal occult POS Stable chronic problems affecting care, new non-acute diagnoses: CAD Hx CABG OSIEL HFpEF Plan As a result of the above findings & factors, the following mgmt was pursued: - Added amlodipine for BP - losartan increased - titrate BP medications - WBC increase likely reactive - no other sign of infection - Goal blood pressure: SBP < 130/70 - statin - subconjunctival hemorrhage noted right eye. - CT head showed orbital hemorrhage and known stroke. ASA/Plavix/Lovenox held. He was observed off it. Neurology recommended stopping plavix, resuming Lovenox /, and asa 7/6, then 5 days from 7/5 increase the dose of ASA to 2 x 81 mg (assuming no issues). - appreciate neurology - follow anemia - stable - fecal occult POS stool /, no intervention per GI - will observe - medically stable to DC - am labs, replace lytes prn - PT/OT/CM/SW - delirium precautions: increase activity - DVT prophylaxis: enoxaparin and encourage ambulation Complexity: Acute illness with systemic symptoms (MOD). Risk: Low risk diagnostic testing or treatment (LOW). Advance Directive: Full Code Anticipated Discharge - Date - 1-2 days, medically stable to DC - Location - IP rehab - Pending the following - auth Total time spent (which include face to face and non face to face encounters) : 40 minutes Toxic drug monitoring/narrow therapeutic index drug monitoring : # Drug name : N/A # Route administered : N/A # Method of monitoring : N/A Extended Emergency Contact Information Primary Emergency Contact: Marzena Booth Mobile Relation: Spouse Secondary Emergency Contact: Maxi Booth Mobile Relation: Son Rick Lexii Chow MD Division of Hospitalist Medicine [facility] [1] History reviewed. No pertinent past medical history. [2] amLODIPine, 10 mg, Oral, Daily aspirin, 81 mg, Oral, Daily atorvastatin, 80 mg, Oral, Daily carvedilol, 12.5 mg, Oral, BID WC [Held by provider] clopidogrel, 75 mg, Oral, Daily enoxaparin, 40 mg, SubCUTAneous, Daily insulin lispro, 0-6 Units, SubCUTAneous, TID WC losartan, 100 mg, Oral, Daily melatonin, 5 mg, Oral, Nightly senna-docusate sodium, 2 tablet, Oral, Daily [3] PRN medications: acetaminophen OR acetaminophen, bisacodyl, dextrose, dextrose, glucagon (rDNA), glucose, hydrALAZINE, labetalol, ondansetron ODT OR ondansetron, polyethylene glycol (PEG)3350, sodium chloride [4] sodium chloride, 50 mL/hr, Last Rate: 50 mL/hr (04/30/25 1601) * Maritza Castellano, MAIN LINE ASSEMBLER - 04/30/2025 3:15 PM EDT Images from the original note were not included. PHYSICAL THERAPY [facility] Treatment Note Name/MRN: Tom Booth ([id number]) Date of : 1945 Age: 79 y.o. Room/Bed: W3-335/W3-335 A Discharge Recommendation: IP Rehab Assessment Modest progress noted compared to yesterday's session. Visible Right lower extremity quad contraction and AROM right knee, foot. Improved verbal responses to questions. Multiple sit to stand transfers from chair with decreasing need for assist, notable improvement in Right lower extremity weightbearing. Used therapist for support, might be able to trial use of FWW next session. Encouraged use of abdominals and bedrails for bed mobility. Patient is highly motivated to participate in therapy. Education for repositioning of right side for comfort and alignment. Education for deep breathing technique and coughing to improve breathing required for endurance in activities. Recommend in-patient rehab upon discharge. Subjective Patient in chair and agreeable to therapy. Pain: Pt denies any current pain. Medical Precautions: No active isolations Proper PPE donned/doffed in accordance with facility standards. Fall Risk: [place] Fall Risk Score: 85 (High Risk) Precautions/Restrictions: Lines/Drains/Airways: IV, telemetry Overall Cognitive Status: WFL Overall Orientation Status: Oriented x4 Family/Caregiver Present: spouse and child(elizabeth) Objective Bed Mobility Sit to supine: Min Assist Rolling to right: Min Assist Rolling to left: Min Assist Scooting: Max Assist HOB Elevated Use of bed rail(s) Transfers/Mobility Sit to stand: Mod Assist, right knee block Stand pivot: Mod Assist, Max Assist Stand step: Mod Assist, Max Assist Sitting balance: Contact Guard Standing balance: Min Assist, right knee block 2x trials with some decrease in assistance on second Device(s) used: Used therapist for support Plan Continue acute PT per plan of care. Safety/Education Safety Safety Devices in place: call light within reach, left in bed, gait belt, and patient at risk for falls Restraints: No Education Education Given To: patient and spouse and son Education Provided: Transfer Training, Discharge Recommendations, Benefits of Increasing Activity, and Breathing Techniques Education Method: Verbal and Demonstration Education Outcome: Demonstrated Understanding, Unable to Verbalize, and Continued Education Needed Outcome Measures AM-PAC AM-PAC Inpatient Mobility Raw Score (No Stairs) : 11 JH-HLM -HL Score: Static standing (1 or more minutes) Goals Patient Stated Goal: Patient unable to participate in goal setting at this time. Encounter Problems Encounter Problems (Active) Mobility Patient will ambulate 35 feet with supervision and least restrictive device in order to improve safety and independence with mobility. (Not Addressed) Start: 04/24/25 Expected End: 05/08/25 Transfers Patient will perform bed mobility with supervision in order to improve independence and prepare forout of bed mobility. (Progressing) Start: 04/24/25 Expected End: 05/08/25 Patient will complete functional transfer with least restrictive device with supervision in order to prepare for ambulation. (Progressing) Start: 04/24/25 Expected End: 05/08/25 Therapy Time Individual Co-treatment Time In 1437 Time Out 1505 Minutes 28 Timed Code Treatment Minutes: 28 Minutes (FA x2) Maritza Crockett MAIN LINE ASSEMBLER Cosigned by Demetria Daily, PT at 04/30/2025 3:48 PM EDT * Alesia Cueva MD - 04/30/2025 1:17 PM EDT Neuro Critical Care / stroke Attending Patient really looking good , family at bedside very happy with the progress , more interactive, trying to talk At this time , he is back no ASA He had a mild +Stool for blood but not dark stool, reports he has had hemorrhoids As per discussion with his , I suggest continuation as plan , ASA now and then 2 81 mg asa in 7days for now NO Plavix Admitting team to watch Hg, Hto and stools if any change and concerning for worsening of anemia would have a low threshold for Upper / lower GI evaluation Consider aggressive GI protection while on ASA with protonix BID Will sign off Let us know if need for any further assistance Final diagnosis - left MCA occlusion with infarction s/o thrombolysis and attempted endovascular thrombectomy - Mild hemorrhagic transformation asymptomatic - Transient episode of clinical worsening secondary to hypotension - Right hemiparesis and aphasia - Hypersomnolence do to dysregulation of sleep / wake cycle improved - + blood in stool , with minimal change of Hto , and in the setting of history of hemorrhoids - HTN goals 120 - 160 - DM, goals 90 - 180 - DLP on high intensity statins I personally interviewed and examined this patient , personally completed completed the note for this patient. I reviewed the chart including MAR, labs, neuroimaging, other imaging studies and discussed my diagnostic impression and patient's plan of care with my TREMAINE/resident/ Fellow , student and the consulting team and patient's family members/surrogate decision makers (in cases where the patient is incapacitated and unable to participate in their own care). [x] Encounter Face to Face [x] follow up [x] Time spend [x] II [x] No longer neurological follow up needed, will sign off, let us know if need for further assistance Personal discussion of test results and plan of care with: Patient treatments and testing options informed consent and plan of care, Family, Admitting Team, ., . Thank you Bre Flores DO for the opportunity to be involved in this patient's care. * Rick Chow MD - 04/30/2025 10:43 AM EDT Hospitalist Progress Note 04/30/2025 Subjective: Admit Date: 04/21/2025 PCP: Bre Flores DO Room#: [id number] A BRIEF HOSPITAL COURSE: Mr. Tom Booth 79-year-old male with past medical history of CAD status post CABG in 2019 onaspirin monotherapy, paroxysmal atrial fibrillation not on anticoagulation prior to hospital admission, heart failure with preserved ejection fraction (66% 04/21/2025 TTE), hypertension, type 2 diabetes mellitus, CKD 3, history of prostate carcinoma in situ, and OSIEL on PAP therapy who presented to outside hospital emergency department on 04/21. Initial deficits: Aphasia, right upper and lower extremity weakness, right-sided facial droop, and right-sided extinction. Initial NIH was calculated at 18. Left MCA infarct. Given TNK around 2116 and transferred to [facility] for thrombectomy. M2-proximal M3 dysfunction and stent retrieval after first pass. Found to have petechial hemorrhagic transformation on MRI from 629. Head CT performed morning of 04/25/2025, stable. He was DC to the [facility] 04/26. Isosorbide was stopped due to stroke - consider resuming as outpatient. BP medications were adjusted for high BP with improvement. On 04/28 orbital hemorrhage noted right eye. CT head showed orbital hemorrhage and known stroke. ASA/Plavix/Lovenox held. He was observed off it. Neurology recommended stopping plavix, resuming Lovenox then 5 days from today increase the dose of ASA to 2 x 81 mg (assuming no issues). Interval History: 04/30: No acute events overnight. Interactive today. Will need re-authorizaton. D/W family. All questions answered. No CP or SOB. Vision improving in right eye. addendum -- fecal occult POS, hold asa and lovenox, consult gi 04/29: Yesterday orbital hemorrhage noted right eye. CT head showed orbital hemorrhage and known stroke. ASA/Plavix/Lovenox held. He was seen by ophthalmology and Subconjunctival hemorrhage wsa diagnosed. He was observed off it. Neurology recommended stopping plavix, resuming Lovenox today, and asa 04/30, then 5 days from today (05/04) increase the dose of ASA to 2 x 81 mg (assuming no issues). D/W with - sleeping today but obeys commands without difficulty - likely due to poor sleep at night. 04/28: BP better controlled. No acute events overnight . Plan DC today. No complaints. D/W patient, nurse, and . 04/27: No acute events overnight. Minimal improvement in strength. D/W . BP not controlled and will titrate BP medications. requested PT and or move to chair. 04/26: Patient with dysarthria - but speech is improving. He has minimal movement RLE. He has no feeling or strength in RUE. He denies CP, SOB, or other symptoms. No overnight issues. Case and plan discussed with patient and bedside nurse. All questions answered. Adult diet Regular; 4 carb choices (60 gm/meal) 24HR INTAKE/OUTPUT: No intake or output data in the 24 hours ending 04/30/25 1043 Past Medical History: Medical History[1] LABS: CBC: Recent Labs 04/28/25 0205 04/29/25 0023 04/30/25 0018 WBC 12.8* 12.3* 12.0* RBC 4.45 4.43 4.08* HGB 13.1 12.9* 11.7* HCT 39.2* 39.1* 36.0* MCV 88.1 88.3 88.2 RDW 14.6 14.3 14.0 PLT 237 261 257 BMP: Recent Labs 04/28/25 0205 04/29/25 0023 04/30/25 0018 NA 141 138 136 K 3.9 4.1 4.1 CL 109* 107 108* CO2 22* 21* 20* BUN 42* 40* 40* CREATININE 1.06 0.99 1.02 GLUCOSE 195* 192* 208* CALCIUM 9.2 9.2 8.8 ANIONGAP 10 10 8 LIVER PROFILE:No results for input(s): AST, ALT, BILITOT, ALKPHOS, PROT in the last 72 hours. No lab exists for component: LABALBU PT/INR: No results for input(s): PROTIME, INR in the last 72 hours. CARDIAC ENZYMES: No results for input(s): TROPONINI in the last 72 hours. Procalcitonin: No results found for: PROCAL COVID-19 PCR: No results for input(s): COVID19 in the last 72 hours. Objective: Vitals: BP 117/65 (BP Location: Right arm, Patient Position: Lying) Pulse 92 Temp 36.4 C (97.6 F) (Temporal) Resp 18 Ht 5' 10 (1.778 m) Wt 153 lb 3.5 oz (69.5 kg) SpO2 93% BMI 21.98 kg/m Pulse Ox: SpO2 Av.9 % Min: 92 % Max: 95 % Supplemental O2: Physical Exam Vitals reviewed. Constitutional: General: He is not in acute distress. Comments: Obeys commands, sleepy HENT: Head: Normocephalic and atraumatic. Mouth/Throat: Mouth: Mucous membranes are moist. Pharynx: Oropharynx is clear. Eyes: Comments: Subconjunctival hemorrhage right eye - improved Cardiovascular: Rate and Rhythm: Normal rate and regular rhythm. Pulmonary: Effort: Pulmonary effort is normal. Breath sounds: Normal breath sounds. Abdominal: Palpations: Abdomen is soft. Musculoskeletal: Right lower leg: No edema. Left lower leg: No edema. Neurological: Sensory: Sensory deficit (RUE numbness) present. Motor: Weakness (right sided weakness) present. Comments: Dysarthria - says some words well Psychiatric: Mood and Affect: Mood normal. 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 PAF not currently on DOAC Hypertension Subconjunctival hemorrhage Hyperlipidemia Type 2 diabetes mellitus with hyperglycemia NAGMA likely due to NS infusion Hypocalcemia Leukocytosis Normocytic anemia Fecal occult POS Stable chronic problems affecting care, new non-acute diagnoses: CAD Hx CABG OSIEL HFpEF Plan As a result of the above findings & factors, the following mgmt was pursued: - Added amlodipine for BP - losartan increased - titrate BP medications - WBC increase likely reactive - no other sign of infection - Goal blood pressure: SBP < 130/70 - statin - subconjunctival hemorrhage noted right eye. - CT head showed orbital hemorrhage and known stroke. ASA/Plavix/Lovenox held. He was observed off it. Neurology recommended stopping plavix, resuming Lovenox 04/29, and asa 04/30, then 5 days from 04/29 increase the dose of ASA to 2 x 81 mg (assuming no issues). - appreciate neurology - follow anemia - fecal occult POS stool 04/30 (hold asa and lovenox, consult GI) - am labs, replace lytes prn - PT/OT/CM/SW - delirium precautions: increase activity - DVT prophylaxis: enoxaparin and encourage ambulation Complexity: Acute illness with systemic symptoms (MOD). Risk: Low risk diagnostic testing or treatment (LOW). Advance Directive: Full Code Anticipated Discharge - Date - TBD - Location - IP rehab - Pending the following - BP control, auth Total time spent (which include face to face and non face to face encounters) : 40 minutes Toxic drug monitoring/narrow therapeutic index drug monitoring : # Drug name : N/A # Route administered : N/A # Method of monitoring : N/A Extended Emergency Contact Information Primary Emergency Contact: Marzena Booth Mobile Relation: Spouse Secondary Emergency Contact: CliftonMaxi mane Mobile Relation: Hayder Chow MD Division of Hospitalist Medicine [facility] [1] History reviewed. No pertinent past medical history. [2] amLODIPine, 10 mg, Oral, Daily aspirin, 81 mg, Oral, Daily atorvastatin, 80 mg, Oral, Daily carvedilol, 12.5 mg, Oral, BID WC [Held by provider] clopidogrel, 75 mg, Oral, Daily enoxaparin, 40 mg, SubCUTAneous, Daily insulin lispro, 0-6 Units, SubCUTAneous, TID WC losartan, 100 mg, Oral, Daily melatonin, 5 mg, Oral, Nightly senna-docusate sodium, 2 tablet, Oral, Daily [3] PRN medications: acetaminophen OR acetaminophen, bisacodyl, dextrose, dextrose, glucagon (rDNA), glucose, hydrALAZINE, labetalol, ondansetron ODT OR ondansetron, polyethylene glycol (PEG)3350, sodium chloride [4] sodium chloride, 50 mL/hr, Last Rate: 50 mL/hr (04/29/252010) * Maritza Castellano, MAIN LINE ASSEMBLER - 04/29/2025 4:05 PM EDT Images from the original note were not included. PHYSICAL THERAPY [facility] Treatment Note Name/MRN: Tom Booth ([id number]) Date of : 1945 Age: 79 y.o. Room[facility]Bed: [facility] A Discharge Recommendation: IP Rehab Assessment Tom Booth exhibits difficulty maintaining arousal during treatment but does respond to verbal cues. Trialed lower extremity therapeutic exercise as documented. Donned right upper extremity sling for bed mobility and sitting balance, to ensure safety for that arm. Sitting balance showing improvement with decreased need for assist and improved posture. Added multiple head turns which causedmoderate loss of balance 1x he required assistance to correct. Verbal responses improving moderately. Patient requires increased time to complete each task/activity secondary to fatigue. Recommend in-patient rehab upon discharge. Subjective Patient in bed and agreeable to therapy Pain: Pt denies any current pain. Medical Precautions: No active isolations Proper PPE donned/doffed in accordance with facility standards. Fall Risk: [place] Fall Risk Score: 75 (High Risk) Precautions/Restrictions: Lines/Drains/Airways: IV, telemetry Overall Cognitive Status: WFL Overall Orientation Status: Oriented to Situation and Oriented to Person Family/Caregiver Present: spouse Objective Bed Mobility Supine to sit: Mod Assist Sit to supine: Mod Assist Rolling to right: Mod Assist Rolling to left: Mod Assist Scooting: Max Assist HOB Elevated Balance During Session: Posture: fair Sitting - Static: Contact Guard Sitting - Dynamic: Contact Guard, Mod Assist Exercises Exercises Heelslides: 10x each: RLE PROM, LLE AROM Gluteal Sets: 10x Hip Adduction: 10x each: RLE PROM, LLE AROM Knee Short Arc Quad: 10x each: RLE PROM, LLE AROM Ankle Pumps: 10x each: RLE PROM, LLE AROM Other exercises Other exercises?: No Plan Continue acute PT per plan of care. Safety/Education Safety Safety Devices in place: call light within reach, left in bed, and no alarms engaged upon entry Restraints: No Education Education Given To: patient and spouse Education Provided: Precautions and ADL Adaptive Strategies Education Method: Verbal and Demonstration Outcome Measures AM-PAC AM-PAC Inpatient Mobility Raw Score (No Stairs) : 11 JH-HLM JH-HLM Score: Sat at edge of bed Goals Patient Stated Goal: Patient unable to participate in goal setting at this time. Encounter Problems Encounter Problems (Active) Mobility Patient will ambulate 35 feet with supervision and least restrictive device in order to improve safety and independence with mobility. (Not Addressed) Start: 04/24/25 Expected End: 05/08/25 Transfers Patient will perform bed mobility with supervision in order to improve independence and prepare forout of bed mobility. (Progressing) Start: 04/24/25 Expected End: 05/08/25 Patient will complete functional transfer with least restrictive device with supervision in order to prepare for ambulation. (Not Addressed) Start: 04/24/25 Expected End: 05/08/25 Therapy Time Individual Co-treatment Time In 1444 Time Out 1515 Minutes 31 Timed Code Treatment Minutes: 31 Minutes (Fa, TP) Maritza Crockett MAIN LINE ASSEMBLER Cosigned by Drake Fox PT at 04/30/2025 7:40 AM EDT * Rick Chow MD - 04/29/2025 1:22 PM EDT Hospitalist Progress Note 04/29/2025 Subjective: Admit Date: 04/21/2025 PCP: Bre Flores DO Room#: [id number]/[id number] A BRIEF HOSPITAL COURSE: Mr. Tom Booth 79-year-old male with past medical history of CAD status post CABG in 2019 onaspirin monotherapy, paroxysmal atrial fibrillation not on anticoagulation prior to hospital admission, heart failure with preserved ejection fraction (66% 04/21/2025 TTE), hypertension, type 2 diabetes mellitus, CKD 3, history of prostate carcinoma in situ, and OSIEL on PAP therapy who presented to outside hospital emergency department on 04/21. Initial deficits: Aphasia, right upper and lower extremity weakness, right-sided facial droop, and right-sided extinction. Initial NIH was calculated at 18. Left MCA infarct. Given TNK around 2116 and transferred to [facility] for thrombectomy. M2-proximal M3 dysfunction and stent retrieval after first pass. Found to have petechial hemorrhagic transformation on MRI from 629. Head CT performed morning of 04/25/2025, stable. He was DC to the [facility] 04/26. Isosorbide was stopped due to stroke - consider resuming as outpatient. BP medications were adjusted for high BP with improvement. On 04/28 orbital hemorrhage noted right eye. CT head showed orbital hemorrhage and known stroke. ASA/Plavix/Lovenox held. He was observed off it. Neurology recommended stopping plavix, resuming Lovenox then 5 days from today increase the dose of ASA to 2 x 81 mg (assuming no issues). Interval History: 04/29: Yesterday orbital hemorrhage noted right eye. CT head showed orbital hemorrhage and known stroke. ASA/Plavix/Lovenox held. He was seen by ophthalmology and Subconjunctival hemorrhage wsa diagnosed. He was observed off it. Neurology recommended stopping plavix, resuming Lovenox today, and asa 04/30, then 5 days from today (05/04) increase the dose of ASA to 2 x 81 mg (assuming no issues). D/W with - sleeping today but obeys commands without difficulty - likely due to poor sleep at night. 04/28: BP better controlled. No acute events overnight . Plan DC today. No complaints. D/W patient, nurse, and . 04/27: No acute events overnight. Minimal improvement in strength. D/W . BP not controlled and will titrate BP medications. requested PT and or move to chair. 04/26: Patient with dysarthria - but speech is improving. He has minimal movement RLE. He has no feeling or strength in RUE. He denies CP, SOB, or other symptoms. No overnight issues. Case and plan discussed with patient and bedside nurse. All questions answered. Adult diet Regular; 4 carb choices (60 gm/meal) 24HR INTAKE/OUTPUT: Intake/Output Summary (Last 24 hours) at 04/29/2025 1322 Last data filed at 04/29/2025 0558 Gross per 24 hour Intake 250 ml Output -- Net 250 ml Past Medical History: Medical History[1] LABS: CBC: Recent Labs 04/27/25 0352 04/28/2520404/29/25 0023 WBC 13.0* 12.8* 12.3* RBC 4.48 4.45 4.43 HGB 13.2 13.1 12.9* HCT 39.4* 39.2* 39.1* MCV 87.9 88.1 88.3 RDW 14.6 14.6 14.3 PLT 231 237 261 BMP: Recent Labs 04/27/25 0352 04/28/25 0205 04/29/25 0023 NA 140 141 138 K 4.1 3.9 4.1 CL 111* 109* 107 CO2 22* 22* 21* BUN 38* 42* 40* CREATININE 1.05 1.06 0.99 GLUCOSE 203* 195* 192* CALCIUM 9.2 9.2 9.2 ANIONGAP 7 10 10 LIVER PROFILE:No results for input(s): AST, ALT, BILITOT, ALKPHOS, PROT in the last 72 hours. No lab exists for component: LABALBU PT/INR: No results for input(s): PROTIME, INR in the last 72 hours. CARDIAC ENZYMES: No results for input(s): TROPONINI in the last 72 hours. Procalcitonin: No results found for: PROCAL COVID-19 PCR: No results for input(s): COVID19 in the last 72 hours. Objective: Vitals: BP 128/77 (BP Location: Right arm, Patient Position: Lying) Pulse 83 Temp 36.6 C (97.9 F) (Temporal) Resp 18 Ht 5' 10 (1.778 m) Wt 152 lb 8.9 oz (69.2 kg) SpO2 95% BMI 21.89 kg/m Pulse Ox: SpO2 Av.1 % Min: 91 % Max: 100 % Supplemental O2: Physical Exam Vitals reviewed. Constitutional: General: He is not in acute distress. Comments: Obeys commands, sleepy HENT: Head: Normocephalic and atraumatic. Mouth/Throat: Mouth: Mucous membranes are moist. Pharynx: Oropharynx is clear. Eyes: Comments: Subconjunctival hemorrhage right eye - improved Cardiovascular: Rate and Rhythm: Normal rate and regular rhythm. Pulmonary: Effort: Pulmonary effort is normal. Breath sounds: Normal breath sounds. Abdominal: Palpations: Abdomen is soft. Musculoskeletal: Right lower leg: No edema. Left lower leg: No edema. Neurological: Sensory: Sensory deficit (RUE numbness) present. Motor: Weakness (right sided weakness) present. Comments: Dysarthria - says some words well Psychiatric: Mood and Affect: Mood normal. 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 - CT head showed orbital hemorrhage and known stroke. ASA/Plavix/Lovenox held. He was observed off it. Neurology recommended stopping plavix, resuming Lovenox 04/29, and asa 04/30, then 5 days from 04/29 increase the dose of ASA to 2 x 81 mg (assuming no issues). - appreciate neurology - follow anemia - am labs, replace lytes prn - PT/OT/CM/SW - delirium precautions: increase activity - DVT prophylaxis: enoxaparin and encourage ambulation Complexity: Acute illness with systemic symptoms (MOD). Risk: Low risk diagnostic testing or treatment (LOW). Advance Directive: Full Code Anticipated Discharge - Date - TBD - Location - IP rehab - Pending the following - BP control, auth Total time spent (which include face to face and non face to face encounters) : 50 minutes Toxic drug monitoring/narrow therapeutic index drug monitoring : # Drug name : N/A # Route administered : N/A # Method of monitoring : N/A Extended Emergency Contact Information Primary Emergency Contact: Marzena Booth Mobile Relation: Spouse Secondary Emergency Contact: Maxi Booth Mobile Relation: Hayder Chow MD Division of Hospitalist Medicine [facility] [1] No past medical history on file. [2] amLODIPine, 10 mg, Oral, Daily [Held by provider] aspirin, 81 mg, Oral, Daily atorvastatin, 80 mg, Oral, Daily carvedilol, 12.5 mg, Oral, BID WC [Held by provider] clopidogrel, 75 mg, Oral, Daily enoxaparin, 40 mg, SubCUTAneous, Daily insulin lispro, 0-6 Units, SubCUTAneous, TID WC losartan, 100 mg, Oral, Daily melatonin, 5 mg, Oral, Nightly senna-docusate sodium, 2 tablet, Oral, Daily [3] PRN medications: acetaminophen OR acetaminophen, bisacodyl, dextrose, dextrose, glucagon (rDNA), glucose, hydrALAZINE, labetalol, ondansetron ODT OR ondansetron, polyethylene glycol (PEG)3350, sodium chloride [4] sodium chloride, 50 mL/hr, Last Rate: 50 mL/hr (04/28/25 1735) * Alesia Cueva MD - 04/29/2025 12:54 PM EDT Neuro Critical Care / stroke Attending Patient seen again he was sitting in bed eating his breakfast, able to interact with conversation .His still thinks he has been more somnolent, reporting one episode this morning when he felt sleep after being question , Patient still having inconsistent sleep , reported sleeping none stop for less than 25 % of the night I think he looks much better His BP has been at range , I do not see any new neuro finding He was fully awake and reported remembering me Current plan for increase activity out of bed Watch BP as we have already been suggesting Start Heparin for DVT prophylaxis today If he tolerates well by tomorrow , restart ASA I suggest to discontinue Plavix, and in 5 days from today increase the dose of ASA to 2 x 81 mg Consider platelet aggregation studies in the future NO need to repeat image at this time as long as patient has no new symptoms Consider stool testing for occult blood, as his BUN is increased out of proportion to his creatinine Focus on regulation of sleep wake cycle I personally interviewed and examined this patient , personally completed completed the note for this patient. I reviewed the chart including MAR, labs, neuroimaging, other imaging studies and discussed my diagnostic impression and patient's plan of care with patient ,family and admitting team [x] Encounter Face to Face [x] follow up [x] Time spend [x] 25 [x] will continue to follow Thank you Bre Flores DO for the opportunity to be involved in this patient's care. * Alesia Cueva MD - 04/28/2025 4:19 PM EDT PROGRESS NOTE. STROKE SERVICE Patient Name:Tom Booth Patient : 1945 Acct: [id number] Date of Admission: 04/21/2025 [facility] PCP: Bre Flores, Patient location Step down Remains in the hospital Called to come to the bedside stat do to concerns for changes in LOC , Subjective: New Complain: Patient known to our service, left MCA occlusion with infarction s/ thrombolysis and aborted thrombectomy, with secondary asymptomatic HT , petechia Patient at his new baseline with right hemiparesis and aphasia , He was only on ASA until yesterday Has had issues with BP manangement in the last 48 hrs requiring more aggressive meds which has resulted into drastic changes From 173 / 99 to 103/ 59 Family at bedside reporting more sleepy today , seems to want to sleep most of the time I examined the patient and asked her if there was any other change, however she stated that his speech and motor exam seem the same , BP meds Norvasc 10 Coreg 25 bid Cozaar 100 PRN meds for SBP > 150 Sedation:No Stroke Core Measures: VTE prophylaxis: was on lovenox, until just now On statin Current Hospital Medications: Current Medications[1] Continuous Infusions: Continuous Meds[2] Allergies: Fosinopril, Lovastatin, and Azithromycin ROS: Unable to obtain complete ROSsecondary to N/A Review of Systems Objective: Telemetry: Arrhythmia 11:24 , episode of SVT , has had on and off some of this episodes , Only for a couple of bits Physical Examination: Patient Vitals for the past 8 hrs: BP Temp Temp src Pulse Resp SpO2 04/28/25 1540 149/89 36.6 C (97.8 F) Temporal 89 19 96 % 04/28/25 1327 103/59 36.1 C (97 F) Temporal 86 16 97 % 04/28/25 0945 123/72 36.3 C (97.3 F) Temporal 88 16 95 % 04/28/25 0902 142/78 -- -- 99 -- -- 04/28/25 0823 157/91 -- -- 102 -- -- I/O last 3 completed shifts: In: - (0 mL/kg) Out: 1300 (18.8 mL/kg) [Urine:1300 (0.5 mL/kg/hr)] Weight: 69.1 kg General Physical Examination: General: elderly , sleepy , comfortable breathing , HEENT:scleral hemorrhage , on his right eye , this is new since this morning Neurological Examination: Higher Functions: Mental Status Exam: Level of Alertness:wakes up , fix and follow, responded ot questions and participated on the exam he however would drift to inatention and sleep if un attended Orientation: self and place , Memory: limited participation Fund of Knowledge: Abnormal Language: seems to have good office coordinator receptionist , responding to yes no questions but no repetition and limited spontaneous speech Dysarthria present Cranial Nerves: -II Visual acuity: he tells me he can see well with the left eye and reports difficulty with the right -II Visualfields: limited on the right , left seems normal -III Pupils (~ 3.5 mm OD, 3.5 mm OU) no asymmetry -III-IV- Extraocular Movements: intact -Nystagmus not tracking -Saccades and pursuits not tracking -V Facial sensation: intact Corneal's Intact bilateral -VII Facial strength:abnormal decreased on the right -VIII Hearing: abnormal decreased -IX-X - Gag reflex present -X Palate: poor participant -XI Shoulder shrug: limited on the right -XII Tongue movement: normal MotorExamination: Tone after evaluation of 4 limbs, the following findings applied: Decreased on the right arm and leg . -Bulk: generalized atrophy due to malnourishment and deconditioning -Muscle Stretch afterevaluation of all limbs, and axial musculature the following findings applied: Drift: some movement but no gravity on the right arm and leg , the arm almost had a 2 instead of 3 , but limited attention . -Reflexes: after evaluation of 4 limbs, the following findings applied ; Abnormal -Plantar responce: Flexor bilaterally Sensory decreased right side, Coordination: Arms patient unable to perform test due to sedation, paralysis or limb orthopedic circumstances Legs patient unable to perform test due to sedation, paralysis or limb orthopediccircumstances Tremors not present Gait abnormal, unable to walk NIHSS: 1LOC / 2 Response / 2 NLF / 1 slurred / 3/ ar/ 3/ leg. 1 sensory , = 13 ANCILLARY Last 24hrs Recent Results (from the past 24 hours) POCT glucose meter Collection Time: 04/27/25 5:19 PM Result Value Ref Range Glucose 188 (H) 70 - 100 mg/dL Phosphorus Collection Time: 04/28/25 2:05 AM Result Value Ref Range PHOSPHORUS 3.0 2.3 - 4.7 mg/dL Magnesium Collection Time: 04/28/25 2:05 AM Result Value Ref Range MAGNESIUM 2.1 1.6 - 2.6 mg/dL Basic metabolic panel Collection Time: 04/28/25 2:05 AM Result Value Ref Range SODIUM 141 136 - 145 mmol/L POTASSIUM 3.9 3.5 - 5.1 mmol/L CHLORIDE 109 (H) 98 - 107 mmol/L CARBON DIOXIDE 22 (L) 23 - 31 mmol/L UREA NITROGEN 42 (H) 9 - 23 mg/dL CREATININE 1.06 0.72 - 1.25 mg/dL GLUCOSE 195 (H) 82 - 115 mg/dL CALCIUM 9.2 8.8 - 10.0 mg/dL ANION GAP 10 3 - 13 mmol/L eGFR 71.8 >60.0 mL/min/1.73m*2 CBC auto differential Collection Time: 04/28/25 2:05 AM Result Value Ref Range Auto WBC 12.8 (H) 3.6 - 10.7 10*3/uL RBC 4.45 4.40 - 5.90 10*6/uL Hemoglobin 13.1 13.0 - 18.0 g/dL Hematocrit 39.2 (L) 40.0 - 52.0 % MCV 88.1 77.0 - 99.0 fL MCH 29.4 26.0 - 34.0 pg MCHC 33.4 30.5 - 36.0 % RDW 14.6 11.5 - 15.0 % Platelets 237 140 - 440 10*3/uL MPV 10.1 9.0 - 12.7 fL MANUAL DIFFERENTIAL (CELLAVISION) Collection Time: 04/28/25 2:05 AM Result Value Ref Range RBC Morphology abnormal Poikilocytes Moderate (A) (none) Kenneth Cells Moderate (A) (none) Acanthocytes Slight (A) (none) Neutrophils % 78 38 - 82 % Lymphocytes % 10 (L) 15 - 45 % Monocytes % 11 5 - 13 % Basophils % 1 0 - 2 % Absolute Neutrophil Count 10.0 (H) 1.8 - 7.5 10*3/uL Lymphocytes Absolute 1.3 1.0 - 4.3 10*3/uL Monocytes Absolute 1.4 (H) 0.0 - 0.9 10*3/uL Basophils Absolute 0.1 0.0 - 0.2 10*3/uL Neutrophils Manual 79 Lymphocytes Manual 10 Monocytes Manual 11 Eosinophils Manual Basophils Manual 1 Bands Manual Metamyelocytes Manual Myelocytes Manual Promyelocytes Manual Blasts Manual Atypical Lymphocytes Manual Unclassified Cells, Manual POCT glucose meter Collection Time: 04/28/25 7:27 AM Result Value Ref Range Glucose 206 (H) 70 - 100 mg/dL POCT glucose meter Collection Time: 04/28/25 11:18 AM Result Value Ref Range Glucose 292 (H) 70 - 100 mg/dL POCT glucose meter Collection Time: 04/28/25 3:35 PM Result Value Ref Range Glucose 211 (H) 70 - 100 mg/dL Prior MRI and imaging reviewed , Today's CT review , other than the conjuntiva hemorrhage there was no other new pathology , Small area of petechial hemorrhage on the left persist ASSESSMENT / PLAN/RECOMMENDATIONS: -= Patient known to our service ( although first time seen by me ) , asked to evaluate him for clinical worsening consistent with decrease in attention and hypersomonolence but not new focal findings This occurred in the setting of a more aggressive BP control and episodes of BP in the 's I suspect that is the cause , although areas of small diffused infarctions and or exisntence of newsystemic conditions can also present like this He does not have any worsening of his hemorrhage intracranially at this time - Acute encephalopathy Suggest , Try to avoid SBP < 120 , goal 120 - 160 , for now Patient will have to have his ASA , plavix and Lovenox put on hold for the rest of the day , if no further problems and if OK with opthalmoloty , reinitiate at least ASA tomorrow and if possible Lovenox , will stop plavix for now , Will re evaluate in am and if no improvement will decide if need for repetition of imaging Transfer to rehab has been discontinued Watch for fevers Repeat labs in am , patient's BUN has been increasing was 42 today this may also be contributing tohis encephalopathy Watch acc goal 90 - 180 Consider restart fluids Avoid PO intake unless he is fully awake and interactive and only while sitting 90 % All this suggestions have been shared with admitting team , Neuro Critical Care / stroke Attending I personally interviewed and examined this patient , personally completed completed the note for this patient. I reviewed the chart including MAR, labs, neuroimaging, other imaging studies and discussed my diagnostic impression and patient's plan of care with patient' and the care team [x] Encounter Face to Face [x] follow up [x] Time spend [x] 50 [x] will continue to follow Thank you Bre Flores DO for the opportunity to be involved in this patient's care. . [1] Current Facility-Administered Medications: acetaminophen (Tylenol) tablet 650 mg, 650 mg, Oral, q6h PRN, 650 mg at 04/27/25 172 OR acetaminophen (Tylenol) suppository 650 mg, 650 mg, Rectal, q6h PRN, Se Sherman DO amLODIPine (Norvasc) tablet 10 mg, 10 mg, Oral, Daily, Rick Chow MD, 10 mg at 04/28/25822 [Held by provider] aspirin EC tablet 81 mg, 81 mg, Oral, Daily, Se Sherman DO, 81 mg at 04/28/25822 atorvastatin (Lipitor) tablet 80 mg, 80 mg, Oral, Daily, Se Sherman DO, 80 mg at 04/27/252024 bisacodyl (Dulcolax) suppository 10 mg, 10 mg, Rectal, Daily PRN, Se Sherman DO carvedilol (Coreg) tablet 25 mg, 25 mg, Oral, BID WC, Rick Chow MD, 25 mg at 04/28/25822 [Held by provider] clopidogrel (Plavix) tablet 75 mg, 75 mg, Oral, Daily, Se Sherman DO,75 mg at 04/28/25822 dextrose 5 % infusion, 100 mL/hr, IntraVENous, PRN, Se Sherman DO dextrose 50 % solution 12.5 g, 12.5 g, IntraVENous, PRN, Se Sherman DO [Held by provider] enoxaparin (Lovenox) syringe 40 mg, 40 mg, SubCUTAneous, Daily, Se Sherman DO, 40 mg at 04/28/25821 glucagon (human recombinant) injection 1 mg, 1 mg, IntraMUSCular, PRN, Se Sherman DO glucose oral gel 15 g, 15 g, Oral, PRN, Se Sherman DO hydrALAZINE (Apresoline) injection 10 mg, 10 mg, IntraVENous, q1h PRN, Se Sherman DO, 10mg at 04/27/25 0404 Insulin Lispro (Humalog) injection 0-6 Units, 0-6 Units, SubCUTAneous, TID WC, 3 Units at 04/28/25 1123 AND [DISCONTINUED] Insulin Lispro (Humalog) injection 0-6 Units, 0-6 Units, SubCUTAneous, Nightly, Paul Montano, labetalol (Normodyne,Trandate) injection 10 mg, 10 mg, IntraVENous, q10 min PRN, Se Sherman DO, 10 mg at 04/27/25 0159 losartan (Cozaar) tablet 100 mg, 100 mg, Oral, Daily, Tasha Gonzalez, JIVE DEVELOPER - SOAKERS SUPERVISOR, 100 mg at 04/28/25 0637 melatonin tablet 5 mg, 5 mg, Oral, Nightly PRN, Se Sherman DO, 5 mg at 04/25/25 2132 ondansetron ODT (Zofran-ODT) disintegrating tablet 4 mg, 4 mg, Oral, q8h PRN OR ondansetron (Zofran) injection 4 mg, 4 mg, IntraVENous, q6h PRN, Se Sherman DO polyethylene glycol (PEG) 3350 (Miralax) packet 17 g, 17 g, Oral, Daily PRN, Se Sherman DO senna-docusate sodium (Senokot-S) 8.6-50 MG tablet 2 tablet, 2 tablet, Oral, Daily, Rick Chow MD, 2 tablet at 04/28/25 0822 sodium chloride ([place]) 0.65 % nasal spray 1 spray, 1 spray, Each Nostril, q2h PRN, Rick Chow MD [2] * Rick Chow MD - 04/28/2025 11:24 AM EDT Hospitalist Progress Note 04/28/2025 Subjective: Admit Date: 04/21/2025 PCP: Bre Flores DO Room#: [id number] A BRIEF HOSPITAL COURSE: Mr. Tom Booth 79-year-old male with past medical history of CAD status post CABG in 2019 onaspirin monotherapy, paroxysmal atrial fibrillation not on anticoagulation prior to hospital admission, heart failure with preserved ejection fraction (66% 04/21/2025 TTE), hypertension, type 2 diabetes mellitus, CKD 3, history of prostate carcinoma in situ, and OSIEL on PAP therapy who presented to outside hospital emergency department on 04/21. Initial deficits: Aphasia, right upper and lower extremity weakness, right-sided facial droop, and right-sided extinction. Initial NIH was calculated at 18. Left MCA infarct. Given TNK around 2116 and transferred to [facility] for thrombectomy. M2-proximal M3 dysfunction and stent retrieval after first pass. Found to have petechial hemorrhagic transformation on MRI from 629. Head CT performed morning of 04/25/2025, stable. He was DC to the [facility] 04/26. Isosorbide was stopped due to stroke - consider resuming as outpatient. BP medications were adjusted for high BP with improvement. He was DC to SNF. Interval History: 04/28: BP better controlled. No acute events overnight . Plan DC today. No complaints. D/W patient, nurse, and . 04/27: No acute events overnight. Minimal improvement in strength. D/W . BP not controlled and will titrate BP medications. requested PT and or move to chair. 04/26: Patient with dysarthria - but speech is improving. He has minimal movement RLE. He has no feeling or strength in RUE. He denies CP, SOB, or other symptoms. No overnight issues. Case and plan discussed with patient and bedside nurse. All questions answered. Adult diet Regular; 4 carb choices (60 gm/meal) 24HR INTAKE/OUTPUT: Intake/Output Summary (Last 24 hours) at 04/28/2025 1124 Last data filed at 04/28/2025 0903 Gross per 24 hour Intake -- Output 380 ml Net -380 ml Past Medical History: Medical History[1] LABS: CBC: Recent Labs 04/26/25 0527 04/27/25 0352 04/28/25 0205 WBC 14.6* 13.0* 12.8* RBC 4.69 4.48 4.45 HGB 13.7 13.2 13.1 HCT 41.2 39.4* 39.2* MCV 87.8 87.9 88.1 RDW 14.6 14.6 14.6 PLT 219 231 237 BMP: Recent Labs 04/26/25 0527 04/27/25 0352 04/28/25 0205 NA 144 140 141 K 4.1 4.1 3.9 CL 111* 111* 109* CO2 19* 22* 22* BUN 38* 38* 42* CREATININE 1.02 1.05 1.06 GLUCOSE 187* 203* 195* CALCIUM 9.3 9.2 9.2 ANIONGAP 14* 7 10 LIVER PROFILE:No results for input(s): AST, ALT, BILITOT, ALKPHOS, PROT in the last 72 hours. No lab exists for component: LABALBU PT/INR: No results for input(s): PROTIME, INR in the last 72 hours. CARDIAC ENZYMES: No results for input(s): TROPONINI in the last 72 hours. Procalcitonin: No results found for: PROCAL COVID-19 PCR: No results for input(s): COVID19 in the last 72 hours. Objective: Vitals: BP 123/72 (BP Location: Right arm, Patient Position: Lying) Pulse 88 Temp 36.3 C (97.3 F) (Temporal) Resp 16 Ht 5' 10 (1.778 m) Wt 152 lb 5.4 oz (69.1 kg) SpO2 95% BMI 21.86 kg/m Pulse Ox: SpO2 Av.7 % Min: 94 % Max: 95 % Supplemental O2: Physical Exam Vitals reviewed. Constitutional: General: He is not in acute distress. HENT: Head: Normocephalic and atraumatic. Mouth/Throat: Mouth: Mucous membranes are moist. Pharynx: Oropharynx is clear. Cardiovascular: Rate and Rhythm: Normal rate and regular rhythm. Pulmonary: Effort: Pulmonary effort is normal. Breath sounds: Normal breath sounds. Abdominal: Palpations: Abdomen is soft. Musculoskeletal: Right lower leg: No edema. Left lower leg: No edema. Neurological: Mental Status: He is alert. Sensory: Sensory deficit (RUE numbness) present. Motor: Weakness (RUE - no movement. RLE - miniaml strengh, can't left heel above bed) present. Comments: Dysarthria - says some words Psychiatric: Mood and Affect: Mood normal. 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 PAF not currently on DOAC Hypertension Hyperlipidemia Type 2 diabetes mellitus with hyperglycemia NAGMA likely due to NS infusion Hypocalcemia Leukocytosis Normocytic anemia Stable chronic problems affecting care, new non-acute diagnoses: CAD Hx CABG OSIEL HFpEF Plan As a result of the above findings & factors, the following mgmt was pursued: - Add amlodipine for BP - losartan increased - titrate BP medications - WBC increase likely reactive - no other sign of infection - Goal blood pressure: SBP < 130/70 - statin - DAPT - appreciate neurology - follow anemia - am labs, replace lytes prn - PT/OT/CM/SW - delirium precautions: increase activity - DVT prophylaxis: enoxaparin and encourage ambulation Complexity: Acute illness with systemic symptoms (MOD). Risk: Low risk diagnostic testing or treatment (LOW). Advance Directive: Full Code Anticipated Discharge - Date - 1-2 days - Location - IP rehab - Pending the following - BP control, auth Total time spent (which include face to face and non face to face encounters) : 40 minutes Toxic drug monitoring/narrow therapeutic index drug monitoring : # Drug name : N/A # Route administered : N/A # Method of monitoring : N/A Extended Emergency Contact Information Primary Emergency Contact: Marzena Booth Mobile Relation: Spouse Secondary Emergency Contact: Maxi Booth Mobile Relation: Hayder Chow MD Division of Hospitalist Medicine [facility] [1] No past medical history on file. [2] amLODIPine, 10 mg, Oral, Daily aspirin, 81 mg, Oral, Daily atorvastatin, 80 mg, Oral, Daily carvedilol, 25 mg, Oral, BID WC clopidogrel, 75 mg, Oral, Daily enoxaparin, 40 mg, SubCUTAneous, Daily insulin lispro, 0-6 Units, SubCUTAneous, TID WC losartan, 100 mg, Oral, Daily senna-docusate sodium, 2 tablet, Oral, Daily [3] PRN medications: acetaminophen OR acetaminophen, bisacodyl, dextrose, dextrose, glucagon (rDNA), glucose, hydrALAZINE, labetalol, melatonin, ondansetron ODT OR ondansetron, polyethylene glycol (PEG) 3350, sodium chloride [4] * Yazmin Romero CCC-INTERNAL CONTROLS CONSULTANT - 04/27/2025 2:12 PM EDT Images from the original note were not included. Speech-Language Pathology SPEECH LANGUAGE PATHOLOGY [facility] Language Treatment Note Patient Name: Tom Booth Evaluation Date: 04/27/2025 Date of : 1945 Admission Date: 04/21/2025 11:16 PM Age: 79 y.o. [facility]: [facility] Subjective Patient alert and cooperative. Seen upright in bed. Visitors at bedside - spouse, son, granddaughter. Spoke with THI Calle who cleared pt for treatment. Pain: Pt denies any current pain. PPE Worn: not applicable Objective & Assessment Language Treatment # of Activities: 1 Language Activity 1: re-assess language ability Receptive Language: Yes/No Questions: General/Personal- 75% Simple- 50% Abstract: 0% 1 step directions: 80% with verbal and visual cues Wh-questions: 0% when open-ended, increased to 50% with forced choices Expressive Language: Automatics: social greeting and closings: 2/2 with visual cues Automatics: counting 1-10: 40% with verbal and visual cues Repetition: 20% with verbal and visual cues Phrase completion with objects (a box of ____): 67% Additional comments: Patient's requested activities to complete outside of therapy time. Educated family on use of yes/no questions, forced choice options, phrase fill ins, and allowing extra time for processing and communication. Plan & Recommendations Plan: Continue acute INTERNAL CONTROLS CONSULTANT therapy per initial plan of care and established goals. D/C Recommendations: ongoing speech therapy at next level of care Education Education Given: goals explained, communication Given To: patient and spouse, son, and granddaughter Response: needs reinforcement Goals Patient Stated Goal: To rest and visit with family. Encounter Problems Encounter Problems (Active) Speech/Language/Cognition Patient will follow 1 step commands (Progressing) Start: 04/24/25 Expected End: 05/08/25 Patient will answer simple yes/no questions (Progressing) Start: 04/24/25 Expected End: 05/08/25 Patient will name objects/items in environment or functional pictures with 60% accuracy. (Progressing) Start: 04/25/25 Expected End: 05/08/25 Patient will make functional comments/requests with 60% accuracy. (Progressing) Start: 04/25/25 Expected End: 05/08/25 Therapy Time INTERNAL CONTROLS CONSULTANT Individual Minutes Time In: 1338 Time Out: 1359 Minutes: 21 LUL Connelly * Rick Chow MD - 04/27/2025 11:42 AM EDT Hospitalist Progress Note 04/27/2025 Subjective: Admit Date: 04/21/2025 PCP: Bre Flores DO Room#: [id number]/[id number] A BRIEF HOSPITAL COURSE: Mr. Tom Booth 79-year-old male with past medical history of CAD status post CABG in 2019 onaspirin monotherapy, paroxysmal atrial fibrillation not on anticoagulation prior to hospital admission, heart failure with preserved ejection fraction (66% 04/21/2025 TTE), hypertension, type 2 diabetes mellitus, CKD 3, history of prostate carcinoma in situ, and OSIEL on PAP therapy who presented to outside hospital emergency department on 04/21. Initial deficits: Aphasia, right upper and lower extremity weakness, right-sided facial droop, and right-sided extinction. Initial NIH was calculated at 18. Left MCA infarct. Given TNK around 2116 and transferred to [facility] for thrombectomy. M2-proximal M3 dysfunction and stent retrieval after first pass. Found to have petechial hemorrhagic transformation on MRI from 629. Head CT performed morning of 04/25/2025, stable. He was DC to the [facility] 04/26. Isosorbide was stopped due to stroke. Amlodipine was added to control BP. Interval History: 04/27: No acute events overnight. Minimal improvement in strength. D/W . BP not controlled and will titrate BP medications. requested PT and or move to chair. 04/26: Patient with dysarthria - but speech is improving. He has minimal movement RLE. He has no feeling or strength in RUE. He denies CP, SOB, or other symptoms. No overnight issues. Case and plan discussed with patient and bedside nurse. All questions answered. Adult diet Regular; 4 carb choices (60 gm/meal) 24HR INTAKE/OUTPUT: Intake/Output Summary (Last 24 hours) at 04/27/2025 1142 Last data filed at 04/27/2025 0608 Gross per 24 hour Intake -- Output 1300 ml Net -1300 ml Past Medical History: Medical History[1] LABS: CBC: Recent Labs 04/25/25 0030 04/26/25 0527 04/27/25 0352 WBC 12.7* 14.6* 13.0* RBC 4.38* 4.69 4.48 HGB 12.8* 13.7 13.2 HCT 38.6* 41.2 39.4* MCV 88.1 87.8 87.9 RDW 14.8 14.6 14.6 PLT 212 219 231 BMP: Recent Labs 04/25/25 0440 04/26/25 0527 04/27/25 0352 NA 137 144 140 K 3.8 4.1 4.1 CL 107 111* 111* CO2 21* 19* 22* BUN 31* 38* 38* CREATININE 1.02 1.02 1.05 GLUCOSE 160* 187* 203* CALCIUM 9.5 9.3 9.2 ANIONGAP 9 14* 7 LIVER PROFILE:No results for input(s): AST, ALT, BILITOT, ALKPHOS, PROT in the last 72 hours. No lab exists for component: LABALBU PT/INR: No results for input(s): PROTIME, INR in the last 72 hours. CARDIAC ENZYMES: No results for input(s): TROPONINI in the last 72 hours. Procalcitonin: No results found for: PROCAL COVID-19 PCR: No results for input(s): COVID19 in the last 72 hours. Objective: Vitals: BP 155/90 (BP Location: Left arm, Patient Position: Lying) Pulse 100 Temp 36.6 C (97.8 F) (Temporal) Resp 20 Ht 5' 10 (1.778 m) Wt 155 lb 6.8 oz (70.5 kg) SpO2 94% BMI 22.30 kg/m Pulse Ox: SpO2 Av.2 % Min: 93 % Max: 95 % Supplemental O2: Physical Exam Vitals reviewed. Constitutional: General: He is not in acute distress. HENT: Head: Normocephalic and atraumatic. Mouth/Throat: Mouth: Mucous membranes are moist. Pharynx: Oropharynx is clear. Cardiovascular: Rate and Rhythm: Normal rate and regular rhythm. Pulmonary: Effort: Pulmonary effort is normal. Breath sounds: Normal breath sounds. Abdominal: Palpations: Abdomen is soft. Musculoskeletal: Right lower leg: No edema. Left lower leg: No edema. Neurological: Mental Status: He is alert. Sensory: Sensory deficit (RUE numbness) present. Motor: Weakness (RUE - no movement. RLE - miniaml strengh, can't left heel above bed) present. Comments: Dysarthria - says some words Psychiatric: Mood and Affect: Mood normal. 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 PAF not currently on DOAC Hypertension Hyperlipidemia Type 2 diabetes mellitus with hyperglycemia NAGMA likely due to NS infusion Hypocalcemia Leukocytosis Normocytic anemia Stable chronic problems affecting care, new non-acute diagnoses: CAD Hx CABG OSEIL HFpEF Plan As a result of the above findings & factors, the following mgmt was pursued: - Add amlodipine for BP - losartan increased - titrate BP medications - WBC increase likely reactive - no other sign of infection - Goal blood pressure: SBP < 130/70 - statin - DAPT - appreciate neurology - follow anemia - am labs, replace lytes prn - PT/OT/CM/SW - delirium precautions: increase activity - DVT prophylaxis: enoxaparin and encourage ambulation Complexity: Acute illness with systemic symptoms (MOD). Risk: Low risk diagnostic testing or treatment (LOW). Advance Directive: Full Code Anticipated Discharge - Date - 1-2 days - Location - IP rehab - Pending the following - BP control, auth Total time spent (which include face to face and non face to face encounters) : 40 minutes Toxic drug monitoring/narrow therapeutic index drug monitoring : # Drug name : N/A # Route administered : N/A # Method of monitoring : N/A Extended Emergency Contact Information Primary Emergency Contact: Marzena Booth Mobile Relation: Spouse Secondary Emergency Contact: Maxi Booth Mobile Relation: Son Rick Lexii Chow MD Division of Hospitalist Medicine [facility] [1] No past medical history on file. [2] [START ON 04/28/2025] amLODIPine, 10 mg, Oral, Daily aspirin, 81 mg, Oral, Daily atorvastatin, 80 mg, Oral, Daily carvedilol, 25 mg, Oral, BID WC clopidogrel, 75 mg, Oral, Daily enoxaparin, 40 mg, SubCUTAneous, Daily insulin lispro, 0-6 Units, SubCUTAneous, TID WC losartan, 100 mg, Oral, Daily senna-docusate sodium, 2 tablet, Oral, Daily [3] PRN medications: acetaminophen OR acetaminophen, bisacodyl, dextrose, dextrose, glucagon (rDNA), glucose, hydrALAZINE, labetalol, melatonin, ondansetron ODT OR ondansetron, polyethylene glycol (PEG) 3350 [4] * Jeannie Chavira - 04/26/2025 3:14 PM EDT Images from the original note were not included. Speech-Language Pathology SPEECH LANGUAGE PATHOLOGY [facility] Language Treatment Note Patient Name: Tom Booth Evaluation Date: 04/26/2025 Date of : 1945 Admission Date: 04/21/2025 11:16 PM Age: 79 y.o. Room[facility]Bed: [facility] Subjective Patient alert and cooperative. Seen upright in bed. Visitors at bedside - spouse. Pain: Pt complains of headache. present and will notify RN. PPE Worn: gloves Objective & Assessment Language Treatment # of Activities: 1 Language Activity 1: re-assess language ability Receptive Language: Yes/No Questions: General/Personal-7/9 Simple- 4/5 Moderate- 1/3 Expressive Language: Confrontation Namin/5. Able to discriminate between 2 choices via yes/no. Sentence Completion: 0/5. Used visual prompting, phonemic cueing, and open-ended questions without success. Repetition: Pt able to respond with repetition of single word x1. Automatics: Responded x1 for social greetings. Counting: Attempted counting from 1-5 x2. Attempt 1-10 without success. Pt achieved 90% accuracy provided verbal and visual cues. Additional comments: Pt's noted that pt's expressive language has improved from the previous day. Plan & Recommendations Plan: Continue ST plans. Continue acute INTERNAL CONTROLS CONSULTANT therapy per initial plan of care and established goals. D/C Recommendations: ongoing speech therapy at next level of care Education Education Given: role of therapy, communication Given To: patient and spouse Response: needs reinforcement Goals Patient Stated Goal: To rest because his head hurt. Encounter Problems Encounter Problems (Active) Speech/Language/Cognition Patient will follow 1 step commands (Not Addressed) Start: 04/24/25 Expected End: 05/08/25 Patient will answer simple yes/no questions (Progressing) Start: 04/24/25 Expected End: 05/08/25 Patient will name objects/items in environment or functional pictures with 60% accuracy. (Not Progressing) Start: 04/25/25 Expected End: 05/08/25 Patient will make functional comments/requests with 60% accuracy. (Progressing) Start: 04/25/25 Expected End: 05/08/25 Therapy Time INTERNAL CONTROLS CONSULTANT Individual Minutes Time In: 1448 Time Out: 1505 Minutes: 17 Jeannie Chavira INTERNAL CONTROLS CONSULTANT Graduate Clinician Cosigned by KRISTIN Peoples at 04/26/2025 4:26 PM EDT * Reyna Royal, JIVE DEVELOPER - BANK CASHIER - 04/26/2025 10:13 AM EDT PROGRESS NOTE: STROKE SERVICE Patient Name:Tom Booth Patient : 1945 Chief complaint: right side weakness and aphasia Hospital Summary: 79-year-old male pt with h/o CAD s/p CABG with pAfib (2019), HFpEF, HTN, DM2, CKDstage 3, prostate carcinoma in situ presented to [facility] ED on 04/21 with aphasia, right hemiplegia,facial droop, and neglect. NIH 18 received TNK and transferred to [facility] for thrombectomy. Angiographyfound M2/M3 clot, stent retriever aborted after one pass, TICI 2A noted. MRI on 04/23 noted small stroke burden with petechial hemorrhage. Pt maintained on DAPT. Interval History: Pt with elevated BP readings of 168 - 183 overnight, requiring hydralazine and labetalol dosing. HR 66 - 100. Medicine starting CCB. NIH remains 13 - 14. No other events noted. Wifeis at bedside, both are wondering about discharge plans. Medications: Scheduled Meds[1] PRN Meds[2] Allergies: Fosinopril, Lovastatin, and Azithromycin ROS: Limited due to aphasia, assists. Review of Systems Constitutional: Positive for fatigue. Negative for fever. HENT: Positive for hearing loss and voice change. Negative for trouble swallowing. Eyes: Negative for photophobia and visual disturbance. Respiratory: Negative for cough and shortness of breath. Cardiovascular: Negative for chest pain, palpitations and leg swelling. Gastrointestinal: Negative for nausea and vomiting. Endocrine: Negative. Genitourinary: Negative for difficulty urinating. Musculoskeletal: Positive for gait problem. Negative for joint swelling. Skin: Negative for pallor. Neurological: Positive for facial asymmetry, speech difficulty, weakness and headaches. Negative for dizziness, tremors, seizures, syncope, light-headedness and numbness. Hematological: Negative. Psychiatric/Behavioral: Negative for agitation and confusion. Physical Examination: Patient Vitals for the past 8 hrs: BP Temp Temp src Pulse Resp SpO2 Weight 04/26/25 0948 138/76 36.3 C (97.3 F) Temporal 95 16 97 % -- 04/26/25 0556 147/98 36.7 C (98.1 F) Temporal 66 16 96 % -- 04/26/25 0529 -- -- -- -- -- -- 70.5 kg (155 lb 6.8 oz) 04/26/25 0258 146/77 -- -- 90 -- -- -- I/O last 3 completed shifts: In: 1060 (15 mL/kg) [P.O.:950; IV Piggyback:110] Out: 2425 (34.4 mL/kg) [Urine:2425 (1 mL/kg/hr)] Weight: 70.5 kg General Physical Examination: General: awake, alert, aphasic, interactive, speech more reliable today HEENT:Normocephalic, atraumatic CV: S1+S2, RRR, no MRG. Pulm:CTA b/l, unlabored Abdomen: Soft NT/ND. BS + Skin: Intact without ulcers, breakdowns or discoloration Extremities: normal with no edema or cyanosis Orthopedic limitation; N/A Pulses: Intact peripherally Carotid auscultation :No bruits Neurological Examination: Higher Functions: Mental Status Exam: Level of Alertness:Awake Orientation: Aphasic Memory: Aphasic Fund of Knowledge: Aphasic Language: Expresive aphasia Dysarthria not present Cranial Nerves: II Visual acuity: not tested II Visual nation: normal, does have a preference to the left III Pupils (~ 3 mm OD, 3 mm OU) equal, round, reactive to light III-IV- Extraocular Movements: intact Nystagmus not present Saccades and pursuits normal V Facial sensation: intact Corneal's Intact bilateral VII Facial strength:abnormal right weakness VIII Hearing: intact IX-X Gag reflex not tested X Palate: intact XI Shoulder shrug: intactnormal XII Tongue movement: normal Motor Examination: Tone after evaluation of 4 limbs, the following findings applied: decreased RIGHT arm and leg Bulk: normal Muscle Stretch after evaluation of all limbs, and axial musculature the following findings applied: Drift: present on right Plantar response: Flexor bilaterally Sensory Examination: appears normal butlimited reliability, Coordination Examination: Arms Left side normal unable to evaluate on right Legs Left side normal unable to evaluate on right Tremors: not present Gait: Not observed NIH Stroke Score: 1A: Level of Consciousness [x] Alert; keenly responsive 0 [] Arouses to minor stimulation +1 [] Requires repeated stimulation to arouse +2 [] Movements to Pain +2 [] Postures or Unresponsive +3 1B: Ask Month and Age [] Both Questions Right 0 [] 1 Question Right +1 [] 0 Questions Right +2 [] Dysarthric/Intubated/ Trauma/Language Barrier +1 [x] Aphasic +2 1C: 'Blink Eyes' & 'Squeeze Hands' [x] Performs Both Tasks 0 [] Performs 1 Task+1 [] Performs 0 Tasks+2 2: Horizontal Extraocular Movements [x] Normal 0 [] Partial Gaze Palsy: Can Be Overcome +1 [] Partial Gaze Palsy: Corrects with Oculocephalic Reflex +1 [] Forced Gaze Palsy: Cannot Be Overcome +2 3: Visual Nation [x] No Visual Loss 0 [] Partial Hemianopia +1 [] Complete Hemianopia +2 [] Patient is Bilaterally Blind +3 [] Bilateral Hemianopia +3 4: Test Facial Palsy (Use Grimace if Obtunded) [] Normal symmetry 0 [] Minor paralysis (flat nasolabial fold, smile asymetry) +1 [x] Partial paralysis (lower face) +2 [] Unilateral Complete paralysis (upper/lower face) +3 [] Bilateral Complete paralysis (upper/lower face) +3 5A: Left Arm Motor [] Amputation/Joint Fusion 0 [x] No Drift for 10 Seconds 0 [] Drift, but doesn't hit bed +1 [] Drift, hits bed +2 [] Some Effort Against [place] +2 [] No Effort Against [place] +3 [] No Movement +4 5B: Right Arm Motor [] Amputation/Joint Fusion 0 [] No Drift for 10 Seconds 0 [] Drift, but doesn't hit bed +1 [] Drift, hits bed +2 [] Some Effort Against [place] +2 [x] No Effort Against [place] +3 [] No Movement +4 6A: Left Leg Motor [] Amputation/Joint Fusion 0 [x] No Drift for 5 Seconds 0 [] Drift, but doesn't hit bed +1 [] Drift, hits bed +2 [] Some Effort Against [place] +2 [] No Effort Against [place] +3 [] No Movement +4 6B: Right Leg Motor [] Amputation/Joint Fusion 0 [] No Drift for 5 Seconds 0 [] Drift, but doesn't hit bed +1 [x] Drift, hits bed +2 [] Some Effort Against [place] +2 [] No Effort Against [place] +3 [] No Movement +4 7: Limb Ataxia [] Amputation/Joint Fusion 0 [] Does Not Understand 0 [] Paralyzed 0 [x] No Ataxia 0 [] Ataxia in 1 Limb +1 [] Ataxia in 2 Limbs +2 8: Sensation [] Normal; No sensory loss 0 [x] Mild-Moderate Loss: Less Sharp/More Dull +1 [] Mild-Moderate Loss: Can Sense Being Touched +1 [] Complete Loss: Cannot Sense Being Touched At All +2 [] No Response and Quadriplegic +2 [] Coma/Unresponsive +2 9: Language/Aphasia [] Normal; No aphasia 0 [] Mild-Moderate Aphasia: Some Obvious Changes, Without Significant Limitation +1 [x] Severe Aphasia: Fragmentary Expression, Inference Needed, Cannot Identify materials +2 [] Mute/Global Aphasia: No Usable Speech/Auditory Comprehension +3 [] Coma/Unresponsive +3 10: Dysarthria [] Intubated/Unable to Test 0 [x] Normal 0 [] Mild-Moderate Dysarthria: Slurring but can be understood +1 [] Severe Dysarthria: Unintelligble Slurring or Out of Proportion to Dysphasia +2 [] Mute/Anarthric +2 11: Extinction/Inattention [] No abnormality 0 [x] Visual/tactile/auditory/spatial/personal inattention +1 [] Extinction to bilateral simultaneous stimulation +1 [] Profound fidel-inattention (ex: does not recognize own hand) +2 [] Extinction to >1 modality +2 NIH score is 13. Labs: CBC: Lab Results Component Value Date WBC 14.6 (H) 04/26/2025 HGB 13.7 04/26/2025 HCT 41.2 04/26/2025 MCV 87.8 04/26/2025 PLT 219 04/26/2025 BMP/CMP: Lab Results Component Value Date GLUCOSE 187 (H) 04/26/2025 CALCIUM 9.3 04/26/2025 NA 144 04/26/2025 K 4.1 04/26/2025 CO2 19 (L) 04/26/2025 CL 111 (H) 04/26/2025 BUN 38 (H) 04/26/2025 CREATININE 1.02 04/26/2025 Lipids: Results from last 7 days Lab Units 04/22/25 0306 CHOLESTEROL mg/dL 62 TRIGLYCERIDES mg/dL 72 HDL mg/dL 37* HgA1c: Lab Results Component Value Date HGBA1C 7.1 (H) 04/22/2025 INR: Results from last 7 days Lab Units 04/21/25 2325 INR 1.0 Radiology/imaging personal review: CT brain (04/25/25): Findings consistent with acute infarct in the left MCA territory involving the left insula, left frontal operculum and anterior left temporal lobe with areas of focal petechial hemorrhage without associated mass effect (ECASS HI-2). MRI brain: MR brain wo contrast Result Date: 04/22/2025 [facility]OTH [facility] 1945 [id number] Exam Date/Time: 04/22/2025 13:45 Procedure: MR BRAIN WO CONTRAST Ordering Provider: CORDOVA KATHRYN Reason For Exam: Post TNK/Thrombectomy L MCA ischemic stroke MRI BRAIN: CLINICAL INDICATION: Post TNK/Thrombectomy L MCA ischemic stroke. Left middle cerebral artery territory infarct TECHNIQUE:Sagittal T1, coronal T2, transaxial T2, FLAIR, gradient echo and diffusion weighted sequences performed through the brain COMPARISON: None. FINDINGS: Ventricular system and Extra-axial spaces: Generalized enlargement of the ventricles and sulci is noted without extracerebral collection with mass eff ect. Cerebral and cerebellar parenchyma: There are numerous scattered foci of restricted diffusion with T2 and FLAIR hyperintensity extending from the left anterior temporal lobe and insular cortex, left basal ganglia, left periventricular region and left frontal and parietal subcortical region peter esponding to end artery distribution of the middle cerebral artery territory. Within the left basalganglia is also a focus of susceptibility artifact over region of up to 1.2 cm, possibly corresponding to acute hemorrhage. There is also a focus adjacent left frontal horn. Brainstem: Normal. Sella turcica and pituitary: Normal. Vascular system: Normal signal void is noted within the major intracranial vessels. Paranasal sinuses: Clear. Mastoid air cells: Normal. Orbits: Normal. Scattered small foci of acute infarct throughout the left middle cerebral artery territory. In one focus within the basal ganglia is probably a superimposed hemorrhagic component. Report Dictated on Electronically Signed By: Piter Waldron MD Electronically Signed Date/Time: 04/22/2025 5:24 PM EDT ASSESSMENT / PLAN/RECOMMENDATIONS: Left MCA Stroke s/p TNK with aborted thrombectomy TICI 2A DAPT therapy followed by ASA therapy Statin + PCSK9 therapy No origin on TTE, ne need for ASTON (d/w Dr. Todd) will require outpatient monitoring for Afib Follow-up with stroke neurology Asymptomatic petechial hemorrhagic transformation Ok to continue DAPT therapy and DVT prophylaxis CT brain stable Aphasia, Right hemiparesis PT/OT/ST Will need inpatient rehab H/o pAfib Will need outpatient monitoring, follow-up with crytogenic stroke clinic CAD with h/o CABG HTN Continue home losartan and coreg doses Agree with start of CCB Goal BP < 130/70 HLD Continue atorvastatin 80 mg Resume Repatha when able Goal LDL < 70 DM2 A1c 7.1 Continue home medications as necessary HFpEF Coreg, losartan Optimize per cardiology No further neurologic recommendations, will sign off, please call with any further questions. 25 minutes of my independent time was spent preparing to see the patient, obtaining/reviewing separately obtained history, completing an appropriate medical examination of the patient, ordering medications/tests/procedures, documenting clinical information on the EMR, and/or coordinating care. An ad ditional 10 minutes was spent discussing assessment/plan with Dr. Todd. [1] amLODIPine, 5 mg, Oral, Daily aspirin, 81 mg, Oral, Daily atorvastatin, 80 mg, Oral, Daily carvedilol, 12.5 mg, Oral, BID clopidogrel, 75 mg, Oral, Daily enoxaparin, 40 mg, SubCUTAneous, Daily insulin lispro, 0-6 Units, SubCUTAneous, TID losartan, 100 mg, Oral, Daily mupirocin, 1 Application, Nasal, BID [2] PRN medications: acetaminophen OR acetaminophen, bisacodyl, dextrose, dextrose, glucagon (rDNA), glucose, hydrALAZINE, labetalol, melatonin, ondansetron ODT OR ondansetron, polyethylene glycol (PEG) 3350 * Kathy Acostawilmaviridiana - 04/26/2025 9:21 AM EDT Images from the original note were not included. OCCUPATIONAL THERAPY [facility] Initial Evaluation Name/MRN: Tom Booth ([id number]) Evaluation Date: 04/26/2025 Date of : 1945 Admission Date: 04/21/2025 11:16 PM Age: 79 y.o. Room[facility]Bed: [facility] Discharge Recommendation: IP Rehab Assessment IMPRESSION: Pt admitted to [facility] with right hemiplegia/neglect, aphasia, and right sided facial droop; pt found to have a left MCA involving the temporal lobe. Prior to admission pt independent for ADLs and mobility. Currently pt presents with right sided weakness (RUE flaccid) and symptoms consistent with expressive aphasia. Pt requires hands on assist of 1-2 for all OOB mobility and ADLs at this time d/t deficits. Pt would be unsafe to return home at this time. Would benefit from skilled services to address functional deficits. Rec IPR at discharge. Admitting Diagnosis: right hemiplegia/neglect, aphasia, and right sided facial droop; pt found to have a left MCA involving the temporal lobe Performance Deficits /Impairments: Increased Pain, Decreased Functional Mobility, Decreased ADL status, Decreased Strength, Decreased Safety Awareness, Decreased Endurance, Decreased Balance, Decreased ROM, Decreased High Level IADLs, Decreased Cognition, Decreased Sensation, Decreased Vision/Visual Deficit, Decreased Fine Motor Control, Decreased Coordination, and Decreased Posture Prognosis: Fair Decision Making: Medium Complexity Subjective Pt cooperative and agreeable to therapy. Pt reports no pain. Pt appears with symptoms consistent with expressive aphasia; does better with yes/no questions. Pain: Pt denies any current pain. Past Medical History: Medical History[1] Past Surgical History: Surgical History[2] Admission Diagnosis: Patient Active Problem List Diagnosis Date Noted Acute ischemic left MCA stroke (HCC) 04/22/2025 Medical Precautions: No active isolations Proper PPE donned/doffed in accordance with facility standards. Fall Risk: [place] Fall Risk Score: 85 (High Risk) Precautions/Restrictions: Lines/Drains/Airways: tele Fall Precautions Family/Caregiver Present: none Overall Cognitive Status: Pt mostly only able to answer yes/no questions d/t expressive aphasia; however, inconsistent. Pt able to follow simple commands ~60% of the time; may require repetition/extra time for command following. Overall Orientation Status: Pt unable to accurately answer orientation questions d/t expressive aphasia; when given option of year pt unable to state yes on correct year. Able to answer yes to his name. Social/Functional History Pt unable to verbalize home set up: Per PT eval discussion with ; pt lives with and grandchildren (who are not home all the time). 2 story house with full bath upstairs. 13 steps to 2nd floor. Prior Level of Function Prior Level of ADL Function: Independent Prior Level of Mobility: Independent; Device: None Prior Level of Transfers: Independent Objective ADLs Grooming: SBA, after setup, pt able to wipe face when given wipe with good accuracy; no right sidedneglect noted during ADL task. Feeding: Supervision, after setup, beverage management with straw to mouth with LUE while supine. Upper Extremity Assessment AROM: WFL on LUE. RUE little to no active ROM; slight contraction proximally in right shoulder/elbow but no movement in right wrist/hand. RUE appearing flaccid; requires support from LUE for movement. PROM: RUE - only taken to 90 degrees shoulder flexion to ensure joint integrity. Able to fully extend/flex distally. Strength: Pt strength WFL on LUE. RUE shoulder flexion and elbow 1/5. Distally 0/5. Sensation: Pt able to verbalize when BUEs were being touched; unable to follow commands of moving extremity when there was stimulation. Unable to verbalize where light touch was felt d/t aphasia. FMC: unable to complete opposition with RUE. Able to complete opposition with LUE with decreased speed and accuracy; may be d/t lack of understanding command. Coordination: finger to nose movement intact LUE. Unable to complete on right side. Tone: flaccid RUE. LUE normal. Pt displaying mild right sided neglect. Vision Functional Vision: Able to see near/far therapist holding up fingers and reciprocate number being held up. Visual fixation: intact Smooth pursuits/Peripheral Nation: right lag in right eye after crossing midline to right visual field. Difficulty fully tracking with right eye to right UQ/LQ. Extinguish test: WFL with slight delay Bed Mobility Supine to sit: Contact Guard Scooting: Min Assist Transfers/Mobility Sit to stand: Mod Assist, x2 Person Assist, x2 stands. Provided transfer training, initial knee block on right side, and joint protection to RUE. Stand to sit: Mod Assist, x2 Person Assist Stand pivot: Mod Assist, x2 Person Assist, transfer training provided; required cues for sequencingsteps over to chair. Sitting balance: Min Assist, right and forward leaning intermittently. Decreased trunk control noted. Standing balance: Min Assist, x2 Person Assist, Static stand ~30 seconds, emphasis on correcting posture to midline and enhancing trunk control. Pt left sitting in chair end of session; provided with optimal positioning/environmental modifications. While seated in chair pt educated on self ROM exercises of RUE to increase movement and wake up extremity. Educated on joint protection principles; required min cues and demonstration for unders tanding and carry over. Device(s) used: Used therapist for support AM-PAC AM-PAC Inpatient Daily Activity Raw Score: 12 ADL Inpatient CMS G-Code Modifier: CL Plan Pt would benefit from skilled acute OT services to address Strengthening, ROM, Gait Training, Balance Training, Self-Care/ADL Training, Functional Mobility Training, Endurance Training, Safety Education and Training, Pain Management, Equipment Evaluation/Education, Cognitive Reorientation, Neuromuscular Re- Education Training, Home Management Training, Patient/Caregiver Training, Cognitive/Perceptual Training, Positioning, Sensory Integration, Visual Training, and Splinting. Frequency: 5x/week for 4 weeks Barriers: Pain, Impaired balance, Lower extremity weakness, Limited safety awareness, Decreased endurance, Upper extremity weakness, Stairs at home, Cognitive deficit, Limited insight into deficits, Communication deficit, and Decreased sensation Safety/Education Safety Safety Devices in place: All fall risk precautions in place, call light within reach, left in chair, chair alarm in place, gait belt, and patient at risk for falls Restraints: No Education Education Given To: patient Education Provided: OT Role, Plan of Care, and self AROM and joint protection principle for RUE. Education Method: Verbal and Demonstration Barriers to Learning: Cognition Education Outcome: Verbalized Understanding, Demonstrated Understanding, and Continued Education Needed Goals Patient Stated Goal: Patient unable to participate in goal setting at this time. Encounter Problems Encounter Problems (Active) Cognition Patient will maintain awareness on the right UE throughout ADLs with no cues. Start: 04/26/25 Expected End: 05/24/25 Instrumental Activities of Daily Living Patient will demonstrate use of joint protection principles during self ROM of RUE to maintain RUE integrity with no cues. Start: 04/26/25 Expected End: 05/24/25 OT Misc Pt will complete 3 sets of 10 self ROM exercises on the RUE with supervision Start: 04/26/25 Expected End: 05/24/25 Transfers Patient will complete toilet transfer with least restrictive device with mod assist in order to prepare for ambulation. Start: 04/26/25 Expected End: 05/24/25 Vision Patient will track to right UQ/LQ visual nation with no delay of right eye. Start: 04/26/25 Expected End: 05/24/25 Therapy Time Individual Co-Treatment Co-Evaluation Time In 08 Time Out 0858 Minutes 32 Timed Code Treatment Minutes: 10 Minutes (1-FA) Patient's Occupational Therapy Plan of Care supervision is transferred to a [facility] Therapy Services Occupational Therapist. Goals and/or treatment plan was established in collaboration with patient/family/other representatives. Kathy Singletary, S/OT [1] No past medical history on file. [2] No past surgical history on file. Cosigned by Juliana Soria OT at 04/26/2025 1:40 PM EDT * Rick Chow MD - 04/26/2025 9:20 AM EDT Hospitalist Progress Note 04/26/2025 Subjective: Admit Date: 04/21/2025 PCP: Bre Flores DO Room#: W9-112/W9-414 A BRIEF HOSPITAL COURSE: Mr. Tom Booth 79-year-old male with past medical history of CAD status post CABG in 2019 onaspirin monotherapy, paroxysmal atrial fibrillation not on anticoagulation prior to hospital admission, heart failure with preserved ejection fraction (66% 04/21/2025 TTE), hypertension, type 2 diabetes mellitus, CKD 3, history of prostate carcinoma in situ, and OSIEL on PAP therapy who presented to outside hospital emergency department on 04/21. Initial deficits: Aphasia, right upper and lower extremity weakness, right-sided facial droop, and right-sided extinction. Initial NIH was calculated at 18. Left MCA infarct. Given TNK around 2116 and transferred to [facility] for thrombectomy. M2-proximal M3 dysfunction and stent retrieval after first pass. Found to have petechial hemorrhagic transformation on MRI from 629. Head CT performed morning of 04/25/2025, stable. He was DC to the [facility] 04/26. Isosorbide was stopped due to stroke. Amlodipine was added to control BP. Interval History: 04/26: Patient with dysarthria - but speech is improving. He has minimal movement RLE. He has no feeling or strength in RUE. He denies CP, SOB, or other symptoms. No overnight issues. Case and plan discussed with patient and bedside nurse. All questions answered. Adult diet Regular; 4 carb choices (60 gm/meal) 24HR INTAKE/OUTPUT: Intake/Output Summary (Last 24 hours) at 04/26/2025 0920 Last data filed at 04/25/20251999 Gross per 24 hour Intake -- Output 900 ml Net -900 ml Past Medical History: Medical History[1] LABS: CBC: Recent Labs 04/24/25 0015 04/25/25 0030 04/26/25 0527 WBC 13.6* 12.7* 14.6* RBC 4.40 4.38* 4.69 HGB 12.7* 12.8* 13.7 HCT 38.8* 38.6* 41.2 MCV 88.2 88.1 87.8 RDW 14.6 14.8 14.6 PLT 221 212 219 BMP: Recent Labs 04/24/25 0015 04/25/25 0440 04/26/25 0527 NA 137 137 144 K 3.8 3.8 4.1 CL 109* 107 111* CO2 18* 21* 19* BUN 27* 31* 38* CREATININE 1.18 1.02 1.02 GLUCOSE 140* 160* 187* CALCIUM 8.7* 9.5 9.3 ANIONGAP 10 9 14* LIVER PROFILE:No results for input(s): AST, ALT, BILITOT, ALKPHOS, PROT in the last 72 hours. No lab exists for component: LABALBU PT/INR: No results for input(s): PROTIME, INR in the last 72 hours. CARDIAC ENZYMES: No results for input(s): TROPONINI in the last 72 hours. Procalcitonin: No results found for: PROCAL COVID-19 PCR: No results for input(s): COVID19 in the last 72 hours. Objective: Vitals: BP 147/98 (BP Location: Right arm, Patient Position: Lying) Pulse 66 Temp 36.7 C (98.1 F) (Temporal) Resp 16 Ht 5' 10 (1.778 m) Wt 155 lb 6.8 oz (70.5 kg) SpO2 96% BMI 22.30 kg/m Pulse Ox: SpO2 Av % Min: 95 % Max: 97 % Supplemental O2: Physical Exam Vitals reviewed. Constitutional: General: He is not in acute distress. HENT: Head: Normocephalic and atraumatic. Mouth/Throat: Mouth: Mucous membranes are moist. Pharynx: Oropharynx is clear. Cardiovascular: Rate and Rhythm: Normal rate and regular rhythm. Pulmonary: Effort: Pulmonary effort is normal. Breath sounds: Normal breath sounds. Abdominal: Palpations: Abdomen is soft. Musculoskeletal: Right lower leg: No edema. Left lower leg: No edema. Neurological: Mental Status: He is alert. Sensory: Sensory deficit (RUE numbness) present. Motor: Weakness (RUE - no movement. RLE - miniaml strengh, can't left heel above bed) present. Comments: Dysarthria - says some words Psychiatric: Mood and Affect: Mood normal. 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 PAF not currently on DOAC Hypertension Hyperlipidemia Type 2 diabetes mellitus with hyperglycemia NAGMA likely due to NS infusion Hypocalcemia Leukocytosis Normocytic anemia Stable chronic problems affecting care, new non-acute diagnoses: CAD Hx CABG OSIEL HFpEF Plan As a result of the above findings & factors, the following mgmt was pursued: - Add amlodipine for BP - losartan increased - WBC increase likely reactive - no other sign of infection - Goal blood pressure: SBP < 130/70 - statin - DAPT - appreciate neurology - follow anemia - am labs, replace lytes prn - PT/OT/CM/SW - delirium precautions: increase activity - DVT prophylaxis: enoxaparin and encourage ambulation Complexity: Acute illness with systemic symptoms (MOD). Risk: Low risk diagnostic testing or treatment (LOW). Advance Directive: Full Code Anticipated Discharge - Date - 04/27 to 04/28 - Location - IP rehab - Pending the following - BP control, auth Total time spent (which include face to face and non face to face encounters) : 50 minutes Toxic drug monitoring/narrow therapeutic index drug monitoring : # Drug name : N/A # Route administered : N/A # Method of monitoring : N/A Extended Emergency Contact Information Primary Emergency Contact: Marzena Booth Mobile Relation: Spouse Secondary Emergency Contact: Maxi Booth Mobile Relation: Son Rick Chow MD Division of Hospitalist Medicine [facility] [1] No past medical history on file. [2] amLODIPine, 5 mg, Oral, Daily aspirin, 81 mg, Oral, Daily atorvastatin, 80 mg, Oral, Daily carvedilol, 12.5 mg, Oral, BID clopidogrel, 75 mg, Oral, Daily enoxaparin, 40 mg, SubCUTAneous, Daily insulin lispro, 0-6 Units, SubCUTAneous, TID losartan, 100 mg, Oral, Daily mupirocin, 1 Application, Nasal, BID [3] PRN medications: acetaminophen OR acetaminophen, bisacodyl, dextrose, dextrose, glucagon (rDNA), glucose, hydrALAZINE, labetalol, melatonin, ondansetron ODT OR ondansetron, polyethylene glycol (PEG) 3350 [4] * Se Sherman DO - 04/25/2025 1:26 PM EDT ICU Transfer Checklist Transfer Med Reconciliation (resume home meds if able, convert to PO if able) Complete Antibiotics (name, indication, duration, convert to PO if able) None Steroid (indication, duration, convert to PO if able) None Anticipated [place] Medications (ICU initiated) or Dose Changes and Indication Discuss DOAC initiation for elevated [id number] in setting of PAF. Permanently Discontinued Home Medications and Reason for medication contraindication No Nguyen Catheter (please remove if able. Note: place DC order) No Central Line (please remove if able. Note: place DC order) No Transfer Discussed with: Dr. Robison & Dr. Connolly. If additional questions for ICU team within 24 hours of ICU transfer, page Dr. Se Shermanor On-Call ICU resident for clarifications. * Campos Machuca - 04/25/2025 12:40 PM EDT Images from the original note were not included. PHYSICAL THERAPY [facility] Treatment Note Name/MRN: Tom Booth ([id number]) Date of : 1945 Age: 79 y.o. Room/Bed: T2-217/T2-217 A Discharge Recommendation: IP Rehab Assessment Patient making progress towards functional goals. Patient performing bed mobility with Min A, transfers with Min to Mod A, ambulation for 4 feet with Mod to Max A and quad cane in LUE. Patient needs consistent cueing to maintain midline and to use RUE/RLE for functional mobility. RUE sling used only for ambulation activities to improve R shoulder stability and safety. Patient would benefit from continued skilled PT services to address previously mentioned deficits. At this time patient would beappropriate for IPR following discharge as patient is currently unsafe to go home and could tolerate 3 hours of therapy each day. Subjective Patient supine in bed upon arrival. Patient present in room for duration of session. Patient agreeable to participate in therapy today. Pain: Pt denies any current pain. Medical Precautions: No active isolations Proper PPE donned/doffed in accordance with facility standards. Fall Risk: [place] Fall Risk Score: 85 (High Risk) Precautions/Restrictions: Lines/Drains/Airways: IV, catheter, telemetry Overall Cognitive Status: WFL Overall Orientation Status: Unable to Assess Family/Caregiver Present: spouse Objective Bed Mobility Supine to sit: Min Assist Rolling to left: Min Assist Scooting: Min Assist Use of bed rail(s) Supine>sit 1x Rolling to L 1x Scooting to EOB 1x Significant verbal cueing on proper sequencing, use of roll to improve technique, segmental scooting of BLE, use of bedrail to assist with pushing up to sitting. Transfers/Mobility Sit to stand: Min Assist, Mod Assist Stand to sit: Min Assist, Mod Assist Sit<>stand from EOB 1x with Mod A Sit<>stand from EOB 1x with Min A Device(s) used: None Significant verbal and tactile cueing on proper hand placement, proper MELODIE, proper forward lean, and midline COG to improve transfer efficiency and safety. RUE sling doffed dependent, once sitting in chair at end of session. Ambulation Ambulation 1 Assistive device(s) used: Quad cane Assist level: Mod Assist, Max Assist Distance (ft): 4 Quality of gait: slow derek, instability through all phases, significant R lateral lean, reduced R step length and coordination, narrow MELODIE, difficulty sequencing steps and quad cane Significant verbal and tactile cueing on sequencing of steps and quad cane, on longer R step length, to initiate R steps, upright posture, avoiding excessive R lean, proper turning to prepare for transfer. RUE sling donned dependent, prior to ambulation to improve R shoulder stability and safety. Balance During Session: Posture: poor Sitting - Static: Contact Guard, Min Assist Sitting - Dynamic: Contact Guard, Min Assist Standing - Static: Min Assist, Mod Assist Standing - Dynamic: Mod Assist, Max Assist Sitting balance at EOB for 10 minutes with CGA, and intermittent need for Min A to correct LOB and weightshift beyond COG. Standing balance in front of bedside 2x with quad cane in LUE, for 3 minutes and 4 minutes to allowfor roselia care following patient having bowel movement upon standing up from bedside Static standing Min to Mod A due to postural instability and sway Dynamic standing Mod to Max A due to postural instability and sway Significant verbal and tactile cueing on maintaining proper MELODIE, proper midline COG, placement of hands, upright posture for sitting balance Significant verbal and tactile cueing on maintaining proper MELODIE, upright posture, proper midline COG, proper amount of weightshift, use of quad cane for stability during standing balance Plan Continue acute PT per plan of care. Safety/Education Safety Safety Devices in place: All fall risk precautions in place, call light within reach, left in chair, gait belt, and nurse and spouse present upon exit. Nursing states chair alarm not necessary Restraints: N/A Education Education Given To: patient Education Provided: PT Role, PT Goals, Gait Training, Transfer Training, and Equipment Education Method: Verbal and Demonstration Barriers to Learning: None Education Outcome: Verbalized Understanding Outcome Measures AM-PAC AM-PAC Inpatient Mobility Raw Score (No Stairs) : 14 JH-HLM -HLM Score: Static standing (1 or more minutes) Goals Patient Stated Goal: Patient unable to participate in goal setting at this time. Due to aphasia Encounter Problems Encounter Problems (Active) Mobility Patient will ambulate 35 feet with supervision and least restrictive device in order to improve safety and independence with mobility. (Progressing) Start: 04/24/25 Expected End: 05/08/25 Transfers Patient will perform bed mobility with supervision in order to improve independence and prepare forout of bed mobility. (Progressing) Start: 04/24/25 Expected End: 05/08/25 Patient will complete functional transfer with least restrictive device with supervision in order to prepare for ambulation. (Progressing) Start: 04/24/25 Expected End: 05/08/25 Therapy Time Individual Co-treatment Time In 1141 Time Out 1208 Minutes 27 Timed Code Treatment Minutes: 27 Minutes (2 units of FA) Campos Machuca SPT Cosigned by Ryder Burger, PT at 04/25/2025 2:51 PM EDT * Se Sherman, DO - 04/25/2025 12:29 PM EDT ICU Progress Note Name: Tom Booth : 1945(79 y.o.) Date: 04/25/25 Team: MICU Attending: Dr. Hawley Subjective: Hospital Summary: Mr. Tom Booth 79-year-old male with past medical history of CAD status post CABG in 2019 onaspirin monotherapy, paroxysmal atrial fibrillation not on anticoagulation prior to hospital admission, heart failure with preserved ejection fraction (66% 04/21/2025 TTE), hypertension, type 2 diabetes mellitus, CKD 3, history of prostate carcinoma in situ, and OSIEL on PAP therapy who presented to outside hospital emergency department on 04/21. Initial deficits: Aphasia, right upper and lower extremity weakness, right-sided facial droop, and right-sided extinction. Initial NIH was calculated at 18. Left MCA infarct. Given TNK around 2116 and transferred to [facility] for thrombectomy. M2-proximal M3 dysfunction and stent retrieval after first pass. Found to have petechial hemorrhagic transformation on MRI from 629. Head CT performed morning of 04/25/2025, stable. Interval Events: - No acute overnight events. NIH at [address] morning[address] Repeat head CT performed this morning to monitor petechial hemorrhagic transformation. Neurocritical care following. Able to answer yes or no questions, but aphasia still apparent when asked open ended questions. Unable to lift right arm against gravity. Able to lift right leg and hold it for 5 seconds. not present at bedside. Scheduled Meds:Scheduled Meds[1] Continuous Infusions:Continuous Meds[2] Objective: Last Vitals: BP MAP 142/71 (04/25/25 1000) 94 (04/25/25 1000) Arterial BP MAP Temp 36.6 C (97.8 F) (04/25/25 0800) Pulse 79 (04/25/25 1000) Resp 18 (04/25/25 1000) SpO2 95 % (04/25/25 1000) Weight 156 lb 1.4 oz (70.8 kg) (04/25/25 0531) BMI Body mass index is 22.4 kg/m . I/O: 04/24 0700 - 04/25 0659 In: 2160 [P.O.:2049] Out: 2650 [Urine:2650] Invasive Lines / Tubes / Drains: Peripheral IV 04/21/25 Left Antecubital (Active) Number of days: 4 Peripheral IV 04/22/25 Anterior;Right Forearm (Active) Number of days: 3 External Urinary Catheter (Active) Number of days: 3 Central Line Indication: NA - patient does not have a central line Nguyen Indications: NA - patient does not have a Nguyen catheter Restraints: NA - patient is not restrained. Wounds: Wound/Incision 04/22/25 Other (comment) Ankle Anterior;Right (Active) Date First Assessed/Time First Assessed: 04/22/25 0035 Present on Original Admission: Yes Primary Wound Type: (c) Other (comment) Location: Ankle Wound Location Orientation: Anterior;Right Wound Description (Comments): abrasion Puncture Site 04/22/25 Groin Anterior;Proximal;Right;Upper (Active) Date First Assessed/Time First Assessed: 04/22/25 0015 Present on Original Admission: No Location: Groin Wound Location Orientation: Anterior;Proximal;Right;Upper Wound Description (Comments): StrokeTeam Arterial Puncture Site Femoral Artery Constitutional: General Appearance In no acute distress, alert. Answers in yes / no questions. Eyes: Inspection of Pupils/Irises Pupils round and react: [x]Yes []No Sclera: []Icteric [x]Non-Icteric Inspection of Conjunctiva/Lids Conjunctiva: []Injected [x]Non-Injected Lids: [x]Intact []Lesion Present ENT/Mouth: External Inspection of ears/nose [] Normal [] Scar/Lesion/Mass Inspection of teeth/lips/gums Dentition: [][place] Teeth []Dentures Lips/Gums: []Intact []Lesion Present Mucosa: []Roberta []Moist []Dry Neck: External Appearance Overall Appearance: [x]Normal []Lesion/Mass/Crepitus Present Trachea midline: [x]Yes []No Thyroid []Normal []Enlarged []Tender []Mass []Absent Respiratory: Respiratory effort []Labored [x]Non-Labored [] Mechanically-Ventilated Auscultation [x]Clear []Crackles []Wheezes [][place]chi Cardiovascular: Auscultation Rate: [x]Regular []Irregular []Tachycardia []Bradycardia Rhythm: [x]Regular []Irregular Murmur: []Present [x]Absent Extremities Peripheral Edema: []Present [x]Absent Varicosities: []Present [x]Absent Gastrointestinal: Abdomen Palpation: [x]Soft []Firm []Tender []Non-Tender []Distended []Non-distended Mass: []Present [x]Absent Bowel Sounds: []Present [x]Absent Hernia: []Present [x]Absent Liver/Spleen: []Hepatosplenomegaly []Organomegaly Absent Musculoskeletal: Inspection of Digits and Nails Cyanosis: []Present [x]Absent Clubbing: []Present [x]Absent Ischemia: []Present []Absent Infection: []Present []Absent Extremities LEIVA Equally: Except ([]RUE []RLE []LUE []LLE) Strength/Tone: Intact and Normal ([]RUE []RLE []LUE []LLE) Skin: Inspection [x]Normal []Rash []Lesion []Ulcer Palpation [x]Warm []Cool []Dry []Clammy []Nodules []Induration []Skin-tightening Cap-Refill: [] <3 sec [] >3 seconds (delayed) Neurologic: GCS EYE: 4 - Opens spontaneously GCS MOTOR: 6 - Obeys commands for movement GCS VERBAL: 3 - Inappropriate words Total GCS: 13 [] Sensation grossly intact NIH 12. Seems to be consistent with baseline. Psych: Mental Status Alert: [x]Yes [] No Oriented: Unable to assess due to aphasia. Mood/Affect []Normal []Flat []Agitated []Depressed []Anxious [x]Calm []Sedated []NAD Select Labs within last 24 hours- BMP: Recent Labs 04/23/25 0515 04/24/25 0015 04/25/25 0440 NA 140 137 137 K 4.3 3.8 3.8 CL 110* 109* 107 CO2 14* 18* 21* BUN 28* 27* 31* CREATININE 1.22 1.18 1.02 CALCIUM 8.9 8.7* 9.5 MG 1.6 1.7 2.4 PHOS 3.6 2.1* 3.4 Glucose: Recent Labs 04/22/25 2309 04/23/25 0515 04/23/25 0516 04/23/25 0815 04/23/25 1212 04/23/25 1636 04/24/25 0015 04/24/25 0827 04/24/25 2126 04/25/25 0440 04/25/25 0845 GLUCOSE -- 119* -- -- -- -- 140* -- -- 160* -- POCGLU 109* -- 120* 111* 222* 116* -- 121* 150* -- 131* CBC: Recent Labs 04/23/25 0515 04/24/25 0015 04/25/25 0030 WBC 14.1* 13.6* 12.7* HGB 12.9* 12.7* 12.8* HCT 39.9* 38.8* 38.6* PLT 227 221 212 MCV 89.7 88.2 88.1 RDW 14.6 14.6 14.8 Labs in Last 3 months: Lab Results Component Value Date INR 1.0 04/21/2025 Imaging: CTH 04/25 Impression: Findings consistent with acute infarct in the left MCA territory involving the left insula, left frontal operculum and anterior left temporal lobe with areas of focal petechial hemorrhage without associated mass effect (ECASS HI-2). MRI Brain 04/22/2025 Impression: Scattered small foci of acute infarct throughout the left middle cerebral artery territory. In one focus within the basal ganglia is probably a superimposed hemorrhagic component. Assessment and Plan: Mr. Tom Booth 79-year-old male with past medical history of CAD status post CABG in 2019 onaspirin monotherapy, paroxysmal atrial fibrillation not on anticoagulation prior to hospital admission, heart failure with preserved ejection fraction (66% 04/21/2025 TTE), hypertension, type 2 diabetes mellitus, CKD 3, history of prostate carcinoma in situ, and OSIEL on PAP therapy who presented to outside hospital emergency department on 04/21. Initial deficits: Aphasia, right upper and lower extremity weakness, right-sided facial droop, and right-sided extinction. Initial NIH was calculated at 18. Left MCA embolic infarction. Given TNK around 2116 and transferred to [facility] for thr ombectomy. 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 -TTE with EF of 66%, no significant valvular abnormalities, no thrombus or other source of embolic event is identified. -Goal blood pressure: SBP < 130/70. Losartan 100 mg PO every day currently. -Okay for DAPT & DVT prophylaxis. -High intensity statin with atorvastatin 80 mg PO every day. -Discussed with neuro-critical care, okay to transfer patient out to PCU 3W, 4W. -Reaching out to [facility] regarding transfer to the floor. -Daily CBC, CMP, mag, phos, and iCal while in ICU. -Monitor and replenish electrolytes as needed. -Monitor and transfuse for hemoglobin less than 7.0. -PT/ OT / INTERNAL CONTROLS CONSULTANT. -Diet: 4 carb choices, glucerna shake daily. Record PO intake. GI Prophylaxis: Not indicated. DVT Prophylaxis: Lovenox 40 q 24hr - creatinine clearance >30 Disposition: Discussing transfer to PCU. [1] aspirin, 81 mg, Oral, Daily atorvastatin, 80 mg, Oral, Daily carvedilol, 12.5 mg, Oral, BID WC clopidogrel, 75 mg, Oral, Daily enoxaparin, 40 mg, SubCUTAneous, Daily insulin lispro, 0-6 Units, SubCUTAneous, TID WC [START ON 04/26/2025] losartan, 100 mg, Oral, Daily mupirocin, 1 Application, Nasal, BID phosphorus, 500 mg, Oral, BID [2] Cosigned by Darren Hawley DO at 04/25/2025 1:13 PM EDT Associated attestation - Darren Hawley DO - 04/25/2025 1:13 PM EDT I reviewed the history, the documented findings, and performed a physical exam of the patient. I agree with Dr. Sherman's assessment, and we discussed the management of the patient. See orders.Doing well,continue PT/OT. Appreciate input from neuro. Remains stable to go to floor. Dr. aMgdalena Yi - 04/25/2025 10:05 AM EDT Images from the original note were not included. Speech-Language Pathology SPEECH LANGUAGE PATHOLOGY [facility] Language Treatment Note Patient Name: Tom Booth Evaluation Date: 04/25/2025 Date of : 1945 Admission Date: 04/21/2025 11:16 PM Age: 79 y.o. Room/Bed: T2-217/T2-217 A Subjective Patient alert and cooperative. Seen upright in bed. Visitors at bedside - spouse. Spoke with RN Myra who cleared pt for treatment. She reported patient said good this AM. Pain: Does not state. PPE Worn: not applicable Objective & Assessment Language Treatment # of Activities: 1 Language Activity 1: re-assess language ability Orientation: 100% when given yes/no choices from a field x2 Receptive Language: yes/no questions:78% ID objects: 0%, increased to 95% when given yes/no choices from a field x3 ID body parts: 0%, increased to 50% when therapist provided tactile prompting to model 1-Step Directions: 0% increased to 50% when therapist provided tactile prompting to model Expressive Language: Automatics: 0% with initial therapist model Confrontation namin%, able to accurately answer with 90% accuracy when given yes/no choices in field of x2-3 Cognition Verbal problem solvin% when given yes/no choices Plan & Recommendations Continue acute INTERNAL CONTROLS CONSULTANT therapy per initial plan of care and established goals. D/C Recommendations: ongoing speech therapy at next level of care Education Education Given: role of therapy, communication Given To: patient and spouse Response: needs reinforcement Goals Patient Stated Goal: to have HOB lowered and lights turned off Encounter Problems Encounter Problems (Active) Speech/Language/Cognition Patient will follow 1 step commands (Progressing) Start: 04/24/25 Expected End: 05/08/25 Patient will answer simple yes/no questions (Progressing) Start: 04/24/25 Expected End: 05/08/25 Patient will name objects/items in environment or functional pictures with 60% accuracy. (Initiated) Start: 04/25/25 Expected End: 05/08/25 Patient will make functional comments/requests with 60% accuracy. (Initiated) Start: 04/25/25 Expected End: 05/08/25 Therapy Time INTERNAL CONTROLS CONSULTANT Individual Minutes Time In: 0947 Time Out: 1002 Minutes: 15 Herberth Yi, KRISTIN Family Welfare Social Work Professor Cosigned by KRISTIN James at 04/25/2025 11:08 AM EDT * Reyna Royal, JIVE DEVELOPER - BANK CASHIER - 04/25/2025 8:20 AM EDT PROGRESS NOTE: NEUROCRITICAL CARE Patient Name:Tom Booth Patient : 1945 Chief complaint: right-sided weakness, aphasia Hospital Summary: 79-year-old male pt with h/o CAD s/p CABG with pAfib (2018), HFpEF, HTN, DM2, CKDstage 3, prostate carcinoma in situ presented to [facility] ED on 04/21 with aphasia, right hemiplegia,facial droop, and neglect. NIH 18 received TNK and transferred to [facility] for thrombectomy. Angiographyfound M2/M3 clot, stent retriever aborted after one pass, TICI 2A noted. MRI on 04/23 noted small stroke burden with petechial hemorrhage. Pt maintained on DAPT. Interval History: No events noted overnight. NIH 12 - 13. I & O +2L, SBP ranged from 127 - 163,mostly between 140 - 150s, HR 72 - 87. Pt and report intermittent headache. No other new complaints. does report that pt was due to have a OSIEL screening as an outpatient prior to cardiac surgery and did not have that completed, is noted to snore. Medications: Scheduled Meds[1] PRN Meds[2] Allergies: Fosinopril, Lovastatin, and Azithromycin ROS: Limited due to aphasia, assisted Review of Systems Constitutional: Negative for fatigue and fever. HENT: Positive for hearing loss. Negative for trouble swallowing and voice change. Eyes: Negative for photophobia and visual disturbance. Respiratory: Positive for cough. Negative for shortness of breath. Cardiovascular: Negative for chest pain and leg swelling. Gastrointestinal: Negative for nausea and vomiting. Genitourinary: Negative for difficulty urinating. Musculoskeletal: Negative for joint swelling and neck pain. Skin: Negative for pallor. Neurological: Positive for facial asymmetry, speech difficulty, weakness, numbness and headaches. Negative for dizziness, tremors and seizures. Hematological: Negative. Psychiatric/Behavioral: Negative for agitation. Physical Examination: Patient Vitals for the past 8 hrs: BP Temp Pulse Resp SpO2 Weight 04/25/25 0600 147/79 -- 75 17 94 % -- 04/25/25 0531 -- -- -- -- -- 70.8 kg (156 lb 1.4 oz) 04/25/25 0500 141/80 -- 80 15 97 % -- 04/25/25 0400 131/81 36.7 C (98 F) 85 24 97 % -- 04/25/25 0300 127/78 -- 76 18 97 % -- 04/25/25 0200 138/73 -- 74 20 98 % -- 04/25/25 0100 153/87 -- 72 20 96 % -- 04/25/25 0035 139/67 -- 74 19 96 % -- I/O last 3 completed shifts: In: 2160 (30.5 mL/kg) [P.O.:2050; IV Piggyback:110] Out: 3200 (45.2 mL/kg) [Urine:3200 (1.3 mL/kg/hr)] Weight: 70.8 kg General Physical Examination: General: awake, alert, aphasic, interactive HEENT:Normocephalic, atraumatic CV: S1+S2, RRR, no MRG. Pulm:CTA b/l, unlabored Abdomen: Soft NT/ND. BS + Skin: Intact without ulcers, breakdowns or discoloration Extremities: normal with no edema or cyanosis Orthopedic limitation; N/A Pulses: Intact peripherally Carotid auscultation :No bruits Neurological Examination: Higher Functions: Mental Status Exam: Level of Alertness:Awake Orientation: Aphasic Memory: Aphasic Fund of Knowledge: Aphasic Language: Globalaphasia Dysarthria not present Cranial Nerves: II Visual acuity: not tested II Visual nation: appear intact to threat, limited exam due to aphasia III Pupils (~ 4 mm OD, 4 mm OU) equal, round, reactive to light III-IV- Extraocular Movements: intact Nystagmus not present Saccades and pursuits normal V Facial sensation: intact Corneal's Intact bilateral VII Facial strength:abnormal mild right droop VIII Hearing: intact IX-X Gag reflex not tested X Palate: intact XI Shoulder shrug: intactnormal XII Tongue movement: normal Motor Examination: Tone after evaluation of 4 limbs, the following findings applied: decreased RIGHT arm and leg Bulk: normal Muscle Stretch after evaluation of all limbs, and axial musculature the following findings applied: Drift: present on right Plantar response: Equivocal Sensory Examination: decreased right side, Coordination Examination: Arms patient unable to perform test due to sedation, paralysis or limb orthopedic circumstances Legs patient unable to perform test due to sedation, paralysis or limb orthopediccircumstances Tremors: not present Gait: Not observed NIH Stroke Score: 1A: Level of Consciousness [x] Alert; keenly responsive 0 [] Arouses to minor stimulation +1 [] Requires repeated stimulation to arouse +2 [] Movements to Pain +2 [] Postures or Unresponsive +3 1B: Ask Month and Age [] Both Questions Right 0 [] 1 Question Right +1 [] 0 Questions Right +2 [] Dysarthric/Intubated/ Trauma/Language Barrier +1 [x] Aphasic +2 1C: 'Blink Eyes' & 'Squeeze Hands' [] Performs Both Tasks 0 [x] Performs 1 Task+1 [] Performs 0 Tasks+2 2: Horizontal Extraocular Movements [x] Normal 0 [] Partial Gaze Palsy: Can Be Overcome +1 [] Partial Gaze Palsy: Corrects with Oculocephalic Reflex +1 [] Forced Gaze Palsy: Cannot Be Overcome +2 3: Visual Nation [] No Visual Loss 0 [x] Partial Hemianopia +1 [] Complete Hemianopia +2 [] Patient is Bilaterally Blind +3 [] Bilateral Hemianopia +3 4: Test Facial Palsy (Use Grimace if Obtunded) [] Normal symmetry 0 [x] Minor paralysis (flat nasolabial fold, smile asymetry) +1 [] Partial paralysis (lower face) +2 [] Unilateral Complete paralysis (upper/lower face) +3 [] Bilateral Complete paralysis (upper/lower face) +3 5A: Left Arm Motor [] Amputation/Joint Fusion 0 [x] No Drift for 10 Seconds 0 [] Drift, but doesn't hit bed +1 [] Drift, hits bed +2 [] Some Effort Against [place] +2 [] No Effort Against [place] +3 [] No Movement +4 5B: Right Arm Motor [] Amputation/Joint Fusion 0 [] No Drift for 10 Seconds 0 [] Drift, but doesn't hit bed +1 [] Drift, hits bed +2 [] Some Effort Against [place] +2 [x] No Effort Against [place] +3 [] No Movement +4 6A: Left Leg Motor [] Amputation/Joint Fusion 0 [x] No Drift for 5 Seconds 0 [] Drift, but doesn't hit bed +1 [] Drift, hits bed +2 [] Some Effort Against [place] +2 [] No Effort Against [place] +3 [] No Movement +4 6B: Right Leg Motor [] Amputation/Joint Fusion 0 [] No Drift for 5 Seconds 0 [x] Drift, but doesn't hit bed +1 [] Drift, hits bed +2 [] Some Effort Against [place] +2 [] No Effort Against [place] +3 [] No Movement +4 7: Limb Ataxia [] Amputation/Joint Fusion 0 [] Does Not Understand 0 [] Paralyzed 0 [] No Ataxia 0 [x] Ataxia in 1 Limb +1 [] Ataxia in 2 Limbs +2 8: Sensation [] Normal; No sensory loss 0 [x] Mild-Moderate Loss: Less Sharp/More Dull +1 [] Mild-Moderate Loss: Can Sense Being Touched +1 [] Complete Loss: Cannot Sense Being Touched At All +2 [] No Response and Quadriplegic +2 [] Coma/Unresponsive +2 9: Language/Aphasia [] Normal; No aphasia 0 [] Mild-Moderate Aphasia: Some Obvious Changes, Without Significant Limitation +1 [x] Severe Aphasia: Fragmentary Expression, Inference Needed, Cannot Identify materials +2 [] Mute/Global Aphasia: No Usable Speech/Auditory Comprehension +3 [] Coma/Unresponsive +3 10: Dysarthria [] Intubated/Unable to Test 0 [x] Normal 0 [] Mild-Moderate Dysarthria: Slurring but can be understood +1 [] Severe Dysarthria: Unintelligble Slurring or Out of Proportion to Dysphasia +2 [] Mute/Anarthric +2 11: Extinction/Inattention [] No abnormality 0 [x] Visual/tactile/auditory/spatial/personal inattention +1 [] Extinction to bilateral simultaneous stimulation +1 [] Profound fidel-inattention (ex: does not recognize own hand) +2 [] Extinction to >1 modality +2 NIH score is 14. Labs: CBC: Lab Results Component Value Date WBC 12.7 (H) 04/25/2025 HGB 12.8 (L) 04/25/2025 HCT 38.6 (L) 04/25/2025 MCV 88.1 04/25/2025 PLT 212 04/25/2025 BMP/CMP: Lab Results Component Value Date GLUCOSE 160 (H) 04/25/2025 CALCIUM 9.5 04/25/2025 NA 137 04/25/2025 K 3.8 04/25/2025 CO2 21 (L) 04/25/2025 CL 107 04/25/2025 BUN 31 (H) 04/25/2025 CREATININE 1.02 04/25/2025 Lipids: Results from last 7 days Lab Units 04/22/25 0306 CHOLESTEROL mg/dL 62 TRIGLYCERIDES mg/dL 72 HDL mg/dL 37* LDL 11 (already on repatha at home) HgA1c: Lab Results Component Value Date HGBA1C 7.1 (H) 04/22/2025 INR: Results from last 7 days Lab Units 04/21/25 2325 INR 1.0 Cardiac testing: TTE (04/24/25) Left Ventricle: Left ventricle size is normal. Mildly increased wall thickness. Normal left ventricular systolic function. EF by 2D Simpsons Biplane is 66%. Normal wall motion. Right Ventricle: Right ventricle size is normal. Normal systolic function. Mitral Valve: Mildly thickened leaflets. Mild annular calcification. No stenosis noted. Left and Right Atrium: size is normal. Interatrial Septum: No interatrial shunt visualized on color Doppler. Aorta: Mildly dilated sinuses of Valsalva. Sinuses of Valsalva diameter is 3.9 cm. Mildly dilated ascending aorta. Ao ascending diameter is 4.1 cm. No significant valvular abnormalities. No thrombus or other source of embolic event is identified. Study Details: The underlying ECG rhythm was sinus rhythm. Radiology/imaging personal review: CT brain (04/25/25): Findings consistent with acute infarct in the left MCA territory involving the left insula, left frontal operculum and anterior left temporal lobe with areas of focal petechial hemorrhage without associated mass effect (ECASS HI-2). MRI brain: MR brain wo contrast Result Date: 04/22/2025 Patient Name: TOM BOOTH : 1945 [facility]#: [id number] Exam Date/Time: 04/22/2025 13:45 Procedure: MR BRAIN WO CONTRAST Ordering Provider: CORDOVA KATHRYN Reason For Exam: Post TNK/Thrombectomy L MCA ischemic stroke MRI BRAIN: CLINICAL INDICATION: Post TNK/Thrombectomy L MCA ischemic stroke. Left middle cerebral artery territory infarct TECHNIQUE:Sagittal T1, coronal T2, transaxial T2, FLAIR, gradient echo and diffusion weighted sequences performed through the brain COMPARISON: None. FINDINGS: Ventricular system and Extra-axial spaces: Generalized enlargement of the ventricles and sulci is noted without extracerebral collection with mass eff ect. Cerebral and cerebellar parenchyma: There are numerous scattered foci of restricted diffusion with T2 and FLAIR hyperintensity extending from the left anterior temporal lobe and insular cortex, left basal ganglia, left periventricular region and left frontal and parietal subcortical region peter esponding to end artery distribution of the middle cerebral artery territory. Within the left basalganglia is also a focus of susceptibility artifact over region of up to 1.2 cm, possibly corresponding to acute hemorrhage. There is also a focus adjacent left frontal horn. Brainstem: Normal. Sella turcica and pituitary: Normal. Vascular system: Normal signal void is noted within the major intracranial vessels. Paranasal sinuses: Clear. Mastoid air cells: Normal. Orbits: Normal. Scattered small foci of acute infarct throughout the left middle cerebral artery territory. In one focus within the basal ganglia is probably a superimposed hemorrhagic component. Report Dictated on Electronically Signed By: Piter Waldron MD Electronically Signed Date/Time: 04/22/2025 5:24 PM EDT ASSESSMENT / PLAN/RECOMMENDATIONS: Left MCA Stroke s/p TNK with aborted thrombectomy TICI 2A DAPT therapy followed by ASA therapy Statin + PCSK9 therapy No origin on TTE, ne need for ASTON (d/w Dr. Todd) will require outpatient monitoring for Afib Asymptomatic petechial hemorrhagic transformation Ok to continue DAPT therapy and DVT prophylaxis CT brain stable Aphasia, Right hemiparesis PT/OT/ST Will need inpatient rehab H/o pAfib Will need outpatient monitoring CAD with h/o CABG HTN Continue home losartan and coreg doses Goal BP < 130/70 HLD Continue atorvastatin 80 mg Resume Repatha when able Goal LDL < 70 DM2 A1c 7.1 Continue home medications as necessary HFpEF Coreg, losartan TTE Optimize per cardiology I spent a total of 25 minutes of independent critical care time for this neurocritically ill patient who is at high risk for both clinical and neurological decline due to further brain injury, which can occur unpredictably and rapidly cause multi-organ dysfunction. In that time I reviewed the chart including MAR, labs, neuroimaging, other imaging studies and discussed my diagnostic impression andpatient's plan of care with the consulting team and patient's family members/surrogate decision makers (in cases where the patient is incapacitated and unable to participate in their own care). An additional 10 minutes was spent discussing assessment/plan with Dr. Todd. [1] aspirin, 81 mg, Oral, Daily atorvastatin, 80 mg, Oral, Daily carvedilol, 12.5 mg, Oral, BID WC clopidogrel, 75 mg, Oral, Daily enoxaparin, 40 mg, SubCUTAneous, Daily insulin lispro, 0-6 Units, SubCUTAneous, TID WC losartan, 50 mg, Oral, Daily mupirocin, 1 Application, Nasal, BID phosphorus, 500 mg, Oral, BID [2] PRN medications: acetaminophen OR acetaminophen, bisacodyl, dextrose, dextrose, glucagon (rDNA), glucose, hydrALAZINE, labetalol, melatonin, ondansetron ODT OR ondansetron, perflutren protein A microsphere (Optison) 3 mL in sodium chloride (PF) 0.9 % 10 mL IV, polyethylene glycol (PEG) 3350 * Christelle Chavarria - 04/24/2025 2:36 PM EDT Images from the original note were not included. Speech-Language Pathology SPEECH LANGUAGE PATHOLOGY [facility] Speech Language Evaluation Patient Name: Tom Booth Evaluation Date: 04/24/2025 Date of : 1945 Admission Date: 04/21/2025 11:16 PM Age: 79 y.o. Room/Bed: T2-217/T2217 A Subjective Patient alert and cooperative, tired. Seen upright in bed. Visitors at bedside - Spouse. Spouse andRN report patient with increased fatigue due to activity today. Spoke with RN Myra who cleared pt to be evaluated. Past Medical History: Medical History[1] Past Surgical History: Surgical History[2] Admission Diagnosis: Patient Active Problem List Diagnosis Date Noted Acute ischemic left MCA stroke (HCC) 04/22/2025 CT/MRI Results: CT head wo IV contrast 04/24/2025 Impression Stable findings compatible with acute on subacute/chronic ischemic change and infarcts of the left MCA territory, with stable petechial hemorrhage. Chronic microvascular change. Report Dictated on Electronically Signed By: Elmer Gaona MD Electronically Signed Date/Time: 04/24/2025 12:55 AM EDT History of Present Illness: 79 yo M PMH HFpE, paroxysmal afib, CAD s/p CABG 2018, CKD Stage 3, prostate CA, OSIEL, HTN, DMII who presented to [facility] ED with R sided hemiplegia, aphasia, and R sided facial droop. Last known well 2029. CTA Head/neck w/ L MCA M1 branch occlusion. On transfer arrival patient was noted to be significantly aphasic and not participatory. Initial NIH at OSH 18. NIH on arrival 7. Taken to IR for endovascular intervention. L M2 occlusion noted in middle segment, superior division. TICI 2A reperfusion obtained of L MCA territory after one pass. Further attempts not performed due to distal lesion of the MCA lesion. ICU consulted for further management. Patient seen and examined. Awake, alert, following commands. Speaking more, moving R side more thanon initial presentation. Denies chest pain, shortness of breath, nausea, or abdominal pain. Patient Complaint: none stated Pain: Pt denies any current pain. PPE Worn: not applicable Objective Orientation: Not oriented to person, place, and time/date Auditory Comprehension: Object Identification: 0% Following 1-step commands: 25% Answering Yes/No Questions: Simple: 25% Summary: Pt presents with severe impairment in auditory comprehension, characterized by inability to identify objects, follow 1-step commands, and answer yes/no questions. Verbal Expression: Confrontation Namin% Summary: Pt presents with severe impairment in verbal expression, characterized by inability to name everyday objects. Only verbal output included yes/no, I don't know, and ok Concomitant Factors: Neglect Impact on Functioning: Activity Limitations and Restrictions: General tasks and demands: severe Interpersonal interactions: severe Safety Risks: Being home alone: severe Reacting to emergency: severe Assessment/Plan IMPRESSION: Patient presents with severe expressive and receptive language deficits. Pt would benefit from skilled acute INTERNAL CONTROLS CONSULTANT services to improve expressive and receptive language skills. Frequency: 3 days/wk for 2 weeks Barriers: Confusion and Communication deficit Prognosis: fair D/C Recommendations: to be determined Education Given: role of therapy, communication Given To: patient, spouse, and RN Response: demonstrated understanding Goals Patient Stated Goal: none stated Encounter Problems Encounter Problems (Active) Speech/Language/Cognition Patient will follow 1 step commands (Initiated) Start: 04/24/25 Expected End: 05/08/25 Patient will answer simple yes/no questions (Initiated) Start: 04/24/25 Expected End: 05/08/25 Therapy Time INTERNAL CONTROLS CONSULTANT Individual Minutes Time In: 1425 Time Out: 1435 Minutes: 10 KRISTIN Thornton Family [employer] Social Work Professor [1] No past medical history on file. [2] No past surgical history on file. Cosigned by Nancy Serra CCC-KRISTIN at 04/24/2025 2:50 PM EDT * Mary Beth Fong RD - 04/24/2025 2:07 PM EDT Nutrition Assessment Type and Reason for Visit: Initial (ICU Screen) Nutrition Recommendations/Plan: Per MNT: add 4 carb choices to diet & add Glucerna shake daily (8oz, 220kcal, 10gm protein). Recommend record po intake in I/O flowsheet to monitor. RD will follow weekly. Malnutrition Assessment: Malnutrition Status: At risk for malnutrition (Comment) (monitor po intake) Context: Acute Illness Nutrition Assessment: 79yo male presented 04/21 as transfer from [facility] for left MCA CVA. Last known well 2029. Received TNK 2116. Arrives via [facility] for ER assessment for embolectomy candidacy. Pt underwent M2 thrombectomy with one pass with combined suction and stent retrieval with distal M2/Proximal M3 occlusion after 1st pass. [id number] reperfusion of the left MCA territory. Pt remains in ICU. Passed nursingBSE 04/22 and diet advanced to Regular. Labs: BUN elevated 27, Glucose elevated 140/121, Calcium low8.7, Phos low 2.1, HbA1c 7.1%. Medications reviewed. Pt with R hemiparesis & expressive aphasia. Spoke with pt and pt's in room. Pt eating lunch: 100% mac & cheese & juice, working on peaches. Pt's reports pt consumed 100% welsh muffin & anderson for bfst. 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 No N/V/abd pain. Per nursing flowsheet, pt consumed 26-50% bfst, 51-75% lunch, 76-99% dinner yesterday 04/23. Pt agrees his current weight of 162# is close to his UBW without recent weight changes. Estimated Daily Nutrient Needs: Energy Requirements Based On: Kcal/kg Weight Used for Energy Requirements: Current Weight for Energy Calculation (kg): 73.5 kg Total Energy Requirements (kcals/day): 22-25 kcal/kg = 8906-0081 kcal Weight Used for Protein Requirements: Current Weight in Kg Used for Protein Requirements: 73.5 kg Estimated Total Protein (g/day): 1-1.2 gm/kg = 74-88 gm Estimated Daily Total Fluid (ml/day): per MD recommendations Nutrition Related Findings: expressive aphasia, R facial droop, no edema, James 15, BM 04/23, +BS Wound Type: (R ankle abrasion) Current Nutrition Therapies: Adult diet Regular Current Oral Intake Average Meal Intake: 26-50%, 51-75%, 76-100% Average Supplements Intake: None Ordered Anthropometric Measures: Height: 177.8 cm (5' 10) Current Body Weight: 73.5 kg (162 lb) Weight Source: Not Specified [place] Body Weight (lbs) (Calculated): 166 lbs [place] Body Weight (Kg) (Calculated): 75 kg % [place] Body Weight (Calculated): 97.6 % BMI (kg/m2) (Calculated): 23.2 Weight Adjustment For: No Adjustment BMI Categories: Normal Weight (BMI 18.5-24.9) Nutrition Diagnosis: Predicted inadequate energy intake related to cognitive or neurological impairment as evidenced by intake 26-50% Nutrition Interventions: Nutrition Education/Counseling: No recommendation at this time Coordination of Nutrition Care: Continue to monitor while inpatient Goals: Goals: PO intake 75% or greater Nutrition Monitoring and Evaluation: Behavioral-Environmental Outcomes: None Identified Food/Nutrient Intake Outcomes: Food and Nutrient Intake, Supplement Intake Physical Signs/Symptoms Outcomes: Biochemical Data, Chewing or Swallowing, GI Status, Fluid Status or Edema, Hemodynamic Status, Meal Time Behavior, Nutrition Focused Physical Findings, Skin, Weight Discharge Planning: Too soon to determine Mary Beth Fong RD Contact: [employer] chat or *[phone] * Ryder Burger PT - 04/24/2025 1:18 PM EDT Images from the original note were not included. PHYSICAL THERAPY [facility] Initial Evaluation Name/MRN: Tom Booth ([id number]) Evaluation Date: 04/24/2025 Date of : 1945 Admission Date: 04/21/2025 11:16 PM Age: 79 y.o. Room/Bed: T2-217/T2-217 A Discharge Recommendation: IP Rehab Assessment IMPRESSION: Pt admitted for Acute Ischemic Left MCA Stroke and s/p Left MCA M1 occlusion s/p TNK and thrombectomy 04/22. Pt presents with aphasia (expressive) and right hemiparesis. Pt was independentprior per . Pt will initiate movement when prompted. Difficulty with postural awareness with sitting balance and needs support of RUE throughout secondary to weakness. Pt has weakness on RUE>RLE. Pt is min to mod assist x1 for standing and transfer to the left side. Recommend IP rehab. Of note, in room reports patient had strength in RUE after stroke a couple days ago but now can barely move it (only squeezes R hand). Spoke to RN (Myra Marr)about this before this therapist got patient up. RN states pt had change after Thrombectomy and per RN neurology told pt had swellingand should return. RN ok'd to continue session. Admitting Diagnosis: Acute ischemic left MCA stroke (HCC) [I63.512] Prognosis: good Performance Deficits /Impairments: Increased Pain, Decreased Functional Mobility, Decreased Safety Awareness, Decreased Endurance, and Decreased Balance Decision Making: Medium Complexity Subjective Pt agreeable for therapy. Pt reports no pain currently. Pt only able to say yes or no due to aphasia. Past Medical History: Medical History[1] Past Surgical History: Surgical History[2] Admission Diagnosis: Patient Active Problem List Diagnosis Date Noted Acute ischemic left MCA stroke (HCC) 04/22/2025 Medical Precautions: No active isolations Proper PPE donned/doffed in accordance with facility standards. Fall Risk: [place] Fall Risk Score: 80 (High Risk) Precautions/Restrictions: Lines/Drains/Airways: IV, catheter, telemetry Family/Caregiver Present: none Overall Cognitive Status: WFL-follows all commands Overall Orientation Status: Unable to Assess Vision: Pt will somewhat track therapist with eyes but difficulty with following therapist finger Hearing: normal Social/Functional History Lives with and grandchildren (who is not home all the time). 2 story house with full bath upstairs. 13 steps to 2nd floor. Prior Level of Function Prior Level of ADL Function: Independent Prior Level of Mobility: Independent; Device: None Prior Level of Transfers: Independent Objective Lower Extremity Assessment AROM: WFL -LUE/LLE is WFL. Of note, pt has difficulty understanding the difference betweeen LUE vs LLE when asked to do opposite one. RUE is only able to perform light squeeze of hand, no demonstrated active wrist flexion/extension, elbow or shoulder. RLE is grossly 25% of ankle,knee, hip; full PROM Strength: Exceptions: LUE/LLE is 4/5; Right hand squeeze is 2-/5 but otherwise 0/5, RLE is 2-/5. Sensation: WFL-Pt is able to feel light touch on all 4 extremities. Balance: Balance During Session: Posture: fair Sitting - Static: Min Assist Sitting - Dynamic: Min Assist Standing - Static: Mod Assist Standing - Dynamic: Mod Assist Pt tends to have excessive anterior lean with sitting. Needs therapist in front to protect patient from too far forward lean. Cued on postural awareness and to sit straight up Bed Mobility: Supine to sit: Mod Assist Support of RUE with getting to EOB. Transfers Sit to stand: Mod Assist Stand to sit: Mod Assist Performed 2 sit to stand transfers. RUE supported. Difficulty advancing RLE. Stand pivot transfer with mod assist x1. Assist of RLE/RUE. Ambulation Did not assess this session. Sulcus sign: 1/2 thumb width. RUE supported throughout and [facility]. Outcome Measures AM-PAC How much HELP from another person do you currently need Turning from your back to your side while in a flat bed without using bedrails?: A Little Moving from lying on your back to sitting on the side of a flat bed without using bedrails?: A Little Moving to and from a bed to a chair (including a wheelchair)?: A Little Standing up from a chair using your arms (wheelchair or bedside chair)?: A Little Walking in a hospital room?: A Lot Stair climbing assessed?: No AM-PAC Inpatient Mobility Raw Score (No Stairs) : 14 JH-HLM JH-HLM Score: Transferred to chair/commode Plan Pt would benefit from skilled acute PT services to address Strengthening, ROM, Gait Training, Balance Training, Functional Mobility Training, Endurance Training, Safety Education and Training, Stair Training, and Equipment Evaluation/Education. Frequency: 3x/week for 2 weeks Barriers: Impaired balance, Lower extremity weakness, Decreased endurance, and New weightbearing/ROM restrictions Safety/Education Safety Safety Devices in place: call light within reach, left in chair, gait belt, patient at risk for falls, no alarms engaged upon entry, and pt instructed to not get up by themselves. Restraints: N/A Education Education Given To: patient Education Provided: PT Role, PT Goals, and Plan of Care Education Method: Verbal Barriers to Learning: None Education Outcome: Verbalized Understanding Goals Patient Stated Goal: Patient unable to participate in goal setting at this time. Due to aphasia Encounter Problems Encounter Problems (Active) Mobility Patient will ambulate 35 feet with supervision and least restrictive device in order to improve safety and independence with mobility. Start: 04/24/25 Expected End: 05/08/25 Transfers Patient will perform bed mobility with supervision in order to improve independence and prepare forout of bed mobility. Start: 04/24/25 Expected End: 05/08/25 Patient will complete functional transfer with least restrictive device with supervision in order to prepare for ambulation. Start: 04/24/25 Expected End: 05/08/25 Therapy Time Individual Co-Treatment Co-Evaluation Time In 1200 Time Out 1227 Minutes 27 Ryder Burger, PT Patient's Physical Therapy Plan of Care supervision is transferred to a [facility] Therapy Services Physical Therapist. Goals and/or treatment plan was established in collaboration with patient/family/other representatives. [1] No past medical history on file. [2] No past surgical history on file. * Lai Palacios DO - 04/24/2025 5:08 AM EDT ICU Progress Note Name: Tom Booth : 1945(79 y.o.) Date: 04/24/25 Team: MICU Attending: Dr. Hawley Subjective: Hospital Summary: 79 yo M transferred 04/22 from [facility] ED for R sided hemiplegia, aphasia, and R sided facial droop, s/p suction and stent retrieval 04/22. PMH HFpE, paroxysmal afib, CAD s/p CABG 2018, CKD Stage 3, prostate CA, OSIEL, HTN, DMII Interval Events: Subjectively, Awake, alert, following commands. Answers in yes and no Denies pain, no acute distress. Objectively, Afebrile, nontachycardic, nontachypneic, BP 123/78 satting 96% on room air Overnight blood pressure around 160s systolic Morning labs, Creatinine 1.18 from 1.22 Phos 2.1-repleted Mag 1.7 repleted Leukocytosis 14.1-13.6 otherwise within normal limits CT head Noncon IMPRESSION: Stable findings compatible with acute on subacute/chronic ischemic change and infarcts of the left MCA territory, with stable petechial hemorrhage. Chronic microvascular change. Scheduled Meds:Scheduled Meds[1] Continuous Infusions:Continuous Meds[2] Objective: Last Vitals: BP MAP 123/78 (04/24/25 0400) 93 (04/24/25 0400) Arterial BP MAP Temp 36.2 C (97.2 F) (04/24/25 0000) Pulse 75 (04/24/25 0400) Resp 18 (04/24/25 0400) SpO2 96 % (04/24/25 0400) Weight 73.9 kg (162 lb 14.7 oz) (04/23/25 0519) BMI There is no height or weight on file to calculate BMI. I/O: 04/23 07 - 04/24 659 In: 2074 [P.O.:450; I.V.:1625] Out: 1700 [Urine:1700] Invasive Lines / Tubes / Drains: Peripheral IV 04/21/25 Left Antecubital (Active) Number of days: 3 Peripheral IV 04/22/25 Anterior;Right Forearm (Active) Number of days: 2 External Urinary Catheter (Active) Number of days: 2 Wounds: Wound/Incision 04/22/25 Other (comment) Ankle Anterior;Right (Active) Date First Assessed/Time First Assessed: 04/22/25 0035 Present on Original Admission: Yes Primary Wound Type: (c) Other (comment) Location: Ankle Wound Location Orientation: Anterior;Right Wound Description (Comments): abrasion Puncture Site 04/22/25 Groin Anterior;Proximal;Right;Upper (Active) Date First Assessed/Time First Assessed: 04/22/25 0015 Present on Original Admission: No Location: Groin Wound Location Orientation: Anterior;Proximal;Right;Upper Wound Description (Comments): StrokeTeam Arterial Puncture Site Femoral Artery Constitutional: General Appearance [x]WDWN []Obese []Cachectic []Thin []Ill Eyes: Inspection of Pupils/Irises Pupils round and react: [x]Yes []No Sclera: []Icteric [x]Non-Icteric Inspection of Conjunctiva/Lids Conjunctiva: []Injected [x]Non-Injected Lids: [x]Intact []Lesion Present ENT/Mouth: External Inspection of ears/nose [x] Normal [] Scar/Lesion/Mass Inspection of teeth/lips/gums Dentition: [][place] Teeth []Dentures Lips/Gums: [x]Intact []Lesion Present Mucosa: [x]Roberta []Moist []Dry Neck: External Appearance Overall Appearance: [x]Normal []Lesion/Mass/Crepitus Present Trachea midline: [x]Yes []No Thyroid [x]Normal []Enlarged []Tender []Mass []Absent Respiratory: Respiratory effort []Labored [x]Non-Labored [] Mechanically-Ventilated Auscultation [x]Clear []Crackles []Wheezes []Rhonchi Cardiovascular: Auscultation Rate: [x]Regular []Irregular []Tachycardia []Bradycardia Rhythm: [x]Regular []Irregular Murmur: [x]Present []Absent Extremities Peripheral Edema: []Present [x]Absent Varicosities: []Present [x]Absent Gastrointestinal: Abdomen Palpation: [x]Soft []Firm []Tender []Non-Tender []Distended []Non-distended Mass: []Present [x]Absent Bowel Sounds: []Present [x]Absent Hernia: []Present [x]Absent Liver/Spleen: []Hepatosplenomegaly []Organomegaly Absent Musculoskeletal: Inspection of Digits and Nails Cyanosis: []Present [x]Absent Clubbing: []Present [x]Absent Ischemia: []Present [x]Absent Infection: []Present [x]Absent Skin: Inspection [x]Normal []Rash []Lesion []Ulcer Palpation [x]Warm []Cool []Dry []Clammy []Nodules []Induration []Skin-tightening Cap-Refill: [] <3 sec [] >3 seconds (delayed) Neurologic: GCS EYE: 4 - Opens spontaneously GCS MOTOR: 6 - Obeys commands for movement GCS VERBAL: 5 - Oriented to person, place, time Total GCS: 15 [] Sensation grossly intact Psych: Mental Status Alert: [x]Yes [] No Oriented: []x0 []X1 []X2 []x3 Mood/Affect [x]Normal []Flat []Agitated []Depressed []Anxious []Calm []Sedated []NAD Select Labs within last 24 hours- BMP: Recent Labs 04/22/25 0306 04/23/25 0515 04/24/25 0015 NA 138 140 137 K 5.2* 4.3 3.8 CL 109* 110* 109* CO2 20* 14* 18* BUN 33* 28* 27* CREATININE 1.34* 1.22 1.18 CALCIUM 9.0 8.9 8.7* MG 1.6 1.6 1.7 PHOS 3.1 3.6 2.1* Glucose: Recent Labs 04/22/25 0306 04/22/25 0544 04/22/25 1202 04/22/25 1657 04/22/25 2309 04/23/25 0515 04/23/25 0516 04/23/25 0815 04/23/25 1212 04/23/25 1636 04/24/25 0015 GLUCOSE 161* -- -- -- -- 119* -- -- -- -- 140* POCGLU -- 156* 136* 145* 109* -- 120* 111* 222* 116* -- CBC: Recent Labs 04/22/25 0306 04/23/25 0515 04/24/25 0015 WBC 10.8* 14.1* 13.6* HGB 12.6* 12.9* 12.7* HCT 38.7* 39.9* 38.8* PLT 217 227 221 MCV 88.8 89.7 88.2 RDW 14.2 14.6 14.6 INR: Recent Labs 04/21/25 2325 INR 1.0 Labs in Last 3 months: Lab Results Component Value Date INR 1.0 04/21/2025 Imaging- abnormal Assessment and Plan: Principal Problem: Acute ischemic left MCA stroke (HCC) Assessment: Left MCA M1 occlusion s/p TNK and thrombectomy 04/22 Aphasia Right hemiparesis - Imaging stable okay for normal BP goal per neurology ASA 81mg and plavix 75mg x90 days followed by ASA monotherapy Continue statin Okay for DVT prophy per NCC - TTE pending DMII with hyperglycemia - Home meds include metformin, Jardiance, glipizide - Continue LDSSI while hospitalized - has been euglycemic HTN HLD CAD s/p CABG HFrEF - Resume home Coreg for blood pressure control - Continue ASA/statin Paroxysmal afib - Rate has been controlled this admission CKD3 - Unknown baseline - Daily BMP GI Prophylaxis: not indicated DVT Prophylaxis: Lovenox 40 q 24hr - creatinine clearance >30 Disposition: Remain in ICU Status [1] aspirin, 81 mg, Oral, Daily atorvastatin, 40 mg, Oral, Daily carvedilol, 12.5 mg, Oral, BID WC clopidogrel, 75 mg, Oral, Daily insulin lispro, 0-6 Units, SubCUTAneous, TID WC mupirocin, 1 Application, Nasal, BID [2] Cosigned by Darren Hawley DO at 04/24/2025 12:19 PM EDT Associated attestation - Darren Hawley DO - 04/24/2025 12:19 PM EDT I have personally performed a [id number] diagnostic evaluation on this patient on date of service04/24/25. History, labs, imaging studies, and electronic medical record have been reviewed by me. This note documented by the [x]private household worker []TREMAINE reflects my history, exam, and medical decision making. I have reviewed and agree with the care plan. Changes were made in the orders as necessary. ROSdocumentation was reviewed and negative unless otherwise stated in HPI. Additional pertinent interval history, ROS, and physical exam findings: General Appearance [x]WDWN []Obese []Cachectic []Thin []Ill Eyes: Inspection of Pupils/Irises Pupils round and react: [x]Yes []No Sclera: []Icteric [x]Non-Icteric Inspection of Conjunctiva/Lids Conjunctiva: []Injected [x]Non-Injected Lids: [x]Intact []Lesion Present ENT/Mouth: External Inspection of ears/nose [x] Normal [] Scar/Lesion/Mass Inspection of teeth/lips/gums Dentition: [][place] Teeth []Dentures Lips/Gums: [x]Intact []Lesion Present Mucosa: [x]Roberta []Moist []Dry Neck: External Appearance Overall Appearance: [x]Normal []Lesion/Mass/Crepitus Present Trachea midline: [x]Yes []No Thyroid [x]Normal []Enlarged []Tender []Mass []Absent Respiratory: Respiratory effort []Labored [x]Non-Labored [] Mechanically-Ventilated Auscultation [x]Clear []Crackles []Wheezes []Rhonchi Cardiovascular: Auscultation Rate: [x]Regular []Irregular []Tachycardia []Bradycardia Rhythm: [x]Regular []Irregular Murmur: [x]Present []Absent Extremities Peripheral Edema: []Present [x]Absent Varicosities: []Present [x]Absent Gastrointestinal: Abdomen Palpation: [x]Soft []Firm []Tender []Non-Tender []Distended []Non-distended Mass: []Present [x]Absent Bowel Sounds: []Present [x]Absent Hernia: []Present [x]Absent Liver/Spleen: []Hepatosplenomegaly []Organomegaly Absent Musculoskeletal: Inspection of Digits and Nails Cyanosis: []Present [x]Absent Clubbing: []Present [x]Absent Ischemia: []Present [x]Absent Infection: []Present [x]Absent Skin: Inspection [x]Normal []Rash []Lesion []Ulcer Palpation [x]Warm []Cool []Dry []Clammy []Nodules []Induration []Skin-tightening Cap-Refill: [] <3 sec [] >3 seconds (delayed) Neurologic: GCS EYE: 4 - Opens spontaneously GCS MOTOR: 6 - Obeys commands for movement GCS VERBAL: 5 - Oriented to person, place, time Total GCS: 15 [] Sensation grossly intact Psych: Mental Status Alert: [x]Yes [] No Oriented: []x0 []X1 []X2 []x3 Mood/Affect [x]Normal []Flat []Agitated []Depressed []Anxious []Calm []Sedated []NAD As per Dr. Palacios's A/P. Patient appears to be doing well today. He does have a right facial droop and right-sided deficits. He is out of bed into a chair. Tolerating p.o. diet. Will await further recommendations from neurocritical care. Most likely can be transferred to 3 W. or 3 N. later today. Blood pressures have been acceptable. Total critical care time for this patient with life-threatening unstable organ failure, including direct patient contact, management of life support systems, review of data including imaging and labs, and discussions with other team members and physicians at least 33 minutes so far today, excludingprocedures. * Esperanza Jeffery MD - 04/23/2025 3:16 PM EDT NEUROCRITICAL CARE PROGRESS NOTE Patient Name: Tom Booth Patient : 1945 Acct: [id number] Date of Admission: 04/21/2025 Room/Bed: T2-217/T2-217 A PCP: No primary care provider on file. Chief Complaint: L MCA stroke Interval Events: - MRI with small stroke burden and minimal hemorrhagic tx on MRI (petechial) Current Hospital Medications: Current Medications[1] Continuous Infusions: Continuous Meds[2] Vitals: Patient Vitals for the past 8 hrs: BP Temp Temp src Pulse Resp SpO2 04/23/25 1500 146/71 -- -- 79 19 97 % 04/23/25 1400 (!) 131/44 -- -- 85 24 95 % 04/23/25 1300 147/74 -- -- 78 19 96 % 04/23/25 1212 -- -- -- -- -- 96 % 04/23/25 1200 141/72 36.6 C (97.9 F) Temporal 87 24 95 % 04/23/25 1100 (!) 173/84 -- -- 90 24 96 % 04/23/25 1000 (!) 161/77 -- -- 77 22 97 % 04/23/25 0905 148/88 -- -- 82 17 95 % 04/23/25 0900 (!) 195/99 -- -- 100 20 98 % 04/23/25 0800 (!) 165/78 -- -- 84 21 97 % I/O last 3 completed shifts: In: 3903.5 (52.8 mL/kg) [P.O.:150; I.V.:3751.5 (50.8 mL/kg); IV Piggyback:2] Out: 1900 (25.7 mL/kg) [Urine:1850 (0.7 mL/kg/hr); Blood:50] Weight: 73.9 kg Physical Examination: General: No acute distress HEENT: Normocephalic and atraumatic. Cardiac: Regular rate and rhythm Pulm: Breathing comfortably on RA GI/: Nondistended, nontender. Ext: No edema. Skin: No rashes or lesions. Neuro: Aox0. Mixed aphasia expressive > receptive PERRL. EOMI. Midline gaze. VFI. R facial droop. V1-V3 sensation intact. Palate rise symmetrical. Shoulder shrug intact. Tongue midline. LUE 5/5 LLE 5/5 RUE 4/5 RLE 4+/5 Sensation intact to light touch No ataxia or dysmetria. No extinction or neglect. Gait deferred in acute setting. Results: Recent Results (from the past 24 hours) POCT glucose meter Collection Time: 04/22/25 4:57 PM Result Value Ref Range Glucose 145 (H) 70 - 100 mg/dL POCT glucose meter Collection Time: 04/22/25 11:09 PM Result Value Ref Range Glucose 109 (H) 70 - 100 mg/dL Phosphorus Collection Time: 04/23/25 5:15 AM Result Value Ref Range PHOSPHORUS 3.6 2.3 - 4.7 mg/dL Magnesium Collection Time: 04/23/25 5:15 AM Result Value Ref Range MAGNESIUM 1.6 1.6 - 2.6 mg/dL Basic metabolic panel Collection Time: 04/23/25 5:15 AM Result Value Ref Range SODIUM 140 136 - 145 mmol/L POTASSIUM 4.3 3.5 - 5.1 mmol/L CHLORIDE 110 (H) 98 - 107 mmol/L CARBON DIOXIDE 14 (L) 23 - 31 mmol/L UREA NITROGEN 28 (H) 9 - 23 mg/dL CREATININE 1.22 0.72 - 1.25 mg/dL GLUCOSE 119 (H) 82 - 115 mg/dL CALCIUM 8.9 8.8 - 10.0 mg/dL ANION GAP 16 (H) 3 - 13 mmol/L eGFR 60.7 >60.0 mL/min/1.73m*2 CBC auto differential Collection Time: 04/23/25 5:15 AM Result Value Ref Range Auto WBC 14.1 (H) 3.6 - 10.7 10*3/uL RBC 4.45 4.40 - 5.90 10*6/uL Hemoglobin 12.9 (L) 13.0 - 18.0 g/dL Hematocrit 39.9 (L) 40.0 - 52.0 % MCV 89.7 77.0 - 99.0 fL MCH 29.0 26.0 - 34.0 pg MCHC 32.3 30.5 - 36.0 % RDW 14.6 11.5 - 15.0 % Platelets 227 140 - 440 10*3/uL MPV 9.6 9.0 - 12.7 fL nRBC 0.0 0.0 - 2.0 /100 WBCs Neutrophils Relative 81.8 38.0 - 82.0 % Lymphocytes Relative 8.7 (L) 15.0 - 45.0 % Monocytes Relative 8.6 5.0 - 13.0 % Eosinophils Relative 0.1 0.0 - 6.0 % Basophils Relative 0.4 0.0 - 2.0 % Immature Grans % 0.4 0.0 - 2.0 % Neutrophils Absolute 11.5 (H) 1.8 - 7.5 10*3/uL Lymphocytes Absolute 1.2 1.0 - 4.3 10*3/uL Monocytes Absolute 1.2 (H) 0.0 - 0.9 10*3/uL Eosinophils Absolute 0.0 0.0 - 0.5 10*3/uL Basophils Absolute 0.1 0.0 - 0.2 10*3/uL Immature Grans Absolute 0.1 (H) <0.1 10*3/uL Calcium, ionized Collection Time: 04/23/25 5:15 AM Result Value Ref Range Calcium, Ion 4.60 4.30 - 5.20 mg/dL PH, IONIZED CALCIUM 7.36 7.31 - 7.46 POCT glucose meter Collection Time: 04/23/25 5:16 AM Result Value Ref Range Glucose 120 (H) 70 - 100 mg/dL POCT glucose meter Collection Time: 04/23/25 12:12 PM Result Value Ref Range Glucose 222 (H) 70 - 100 mg/dL Since admission: No results for input(s): CKTOTAL, TROPONINI in the last 72 hours. No results for input(s): ALKPHOS, ALT, AST, BILITOT, BILIDIR, AMYLASE, LIPASE in the last 72 hours. No lab exists for component: [email or web address] ABGs:)No results for input(s): PH, PO2, PCO2, HCO3, O2SAT in the last 72 hours. No lab exists for component: BE Cultures: Blood culture #1: No lab exists for component: BC Blood culture #2: No lab exists for component: BLOODCULT2 Antiepileptic levels: No results for input(s): PHENYTOIN, PHENOBARB, VALPROATE in the last 72 hours. No lab exists for component: CARBTOT, LAMOTRIG, KEPPRA Coagulation: Recent Labs 04/21/25 2325 INR 1.0 CSF: No results for input(s): CULTURE, PROTEIN in the last 72 hours. No lab exists for component: CHARCSF, CELL COUNT, GRAM STAIN Lipids: Recent Labs 04/22/25 0306 CHOL 62 TRIG 72 HDL 37* HgA1c: No lab exists for component: LABA1C Radiology: Diagnostic Cerebral Angiogram 04/22/25 Left M2 occlusion in the middle segment, superior division. One pass with combined suction and stent retrieval with distal M2/Proximal M3 occlusion after 1st pass. [id number] reperfusion of the left MCA territory. Further attempts not performed due to distal lesion of the MCA lesion. Assessment and Plan: Tom Booth is a 79 yo M with a history of CAD s/p CAG on ASA (no AC) who presents to OSH as full L MCA syndrome. Received TNK at 2116. Transferred for thrombectomy and clinically was improved on arrival. Suspected some degree of recanalization and possible migration of clot to the M2. DCA revealed this to be the case. Dr. Hebert performed M2 thrombectomy with one pass with combined suction and stent retrieval with distal M2/Proximal M3 occlusion after 1st pass. [id number] reperfusion of the left MCA territory. In terms of etiology there is no known history of AF but will monitor. He has significant intracranial atherosclerosis so in the absence of an indication for AC will treat with DAPT x90 days. # L MCA stroke # CAD s/p CABG - Head CT tomorrow AM to ensure stability of petechial hemorrhage - Normotension - ASA 81mg and plavix 75mg x90 days followed by ASA monotherapy - Statin - Diet DC mIVF - DVT ppx - INTERNAL CONTROLS CONSULTANT/PT/OT Esperanza Jeffery MD Neurocritical Care I spent a total of minutes in my independent critical care time for this neurocritically ill patient who is at high risk for both clinical and neurological decline due to further brain injury, which can occur unpredictably and rapidly cause multi-organ dysfunction. In that time I reviewed the chart including MAR, labs, neuroimaging, other imaging studies and discussed my diagnostic impression andpatient's plan of care with my TREMAINE/resident/fellow/student, the consulting team and patient's family members/surrogate decision makers (in cases where the patient is incapacitated and unable to participate in their own care). [1] Current Facility-Administered Medications: acetaminophen (Tylenol) tablet 650 mg, 650 mg, Oral, q6h PRN OR acetaminophen (Tylenol) suppository 650 mg, 650 mg, Rectal, q6h PRN, Iesha Anju Casas, DO aspirin EC tablet 81 mg, 81 mg, Oral, Daily, Paul Montano DO, 81 mg at 04/23/25 08 atorvastatin (Lipitor) tablet 40 mg, 40 mg, Oral, Daily, Iesha Casas, DO, 40 mg at 04/23/25 08 bisacodyl (Dulcolax) suppository 10 mg, 10 mg, Rectal, Daily PRN, Iesha Casas DO carvedilol (Coreg) tablet 12.5 mg, 12.5 mg, Oral, BID WC, Paul Montano DO, 12.5 mg at 04/23/25 08 clopidogrel (Plavix) tablet 75 mg, 75 mg, Oral, Daily, Paul Montano DO, 75 mg at 806 dextrose 5 % infusion, 100 mL/hr, IntraVENous, PRN, Paul Montano DO dextrose 50 % solution 12.5 g, 12.5 g, IntraVENous, PRN, Paul Montano DO glucagon (human recombinant) injection 1 mg, 1 mg, IntraMUSCular, PRN, Paul Montano DO glucose oral gel 15 g, 15 g, Oral, PRN, Paul Montano DO hydrALAZINE (Apresoline) injection 10 mg, 10 mg, IntraVENous, q1h PRN, Iesha Casas DO, 10 mg at 04/23/25 1103 Insulin Lispro (Humalog) injection 0-6 Units, 0-6 Units, SubCUTAneous, TID WC, 2 Units at 04/23/25 1216 AND [DISCONTINUED] Insulin Lispro (Humalog) injection 0-6 Units, 0-6 Units, SubCUTAneous, Nightly, Paul Montano DO labetalol (Normodyne,Trandate) injection 10 mg, 10 mg, IntraVENous, q10 min PRN, Iesha Casas DO, 10 mg at 04/23/25 0903 mupirocin (Bactroban) 2 % ointment 1 Application, 1 Application, Nasal, BID, Iesha Casas DO, 1 Application at 04/23/25 08 ondansetron ODT (Zofran-ODT) disintegrating tablet 4 mg, 4 mg, Oral, q8h PRN OR ondansetron (Zofran) injection 4 mg, 4 mg, IntraVENous, q6h PRN, Iesha Hahns, DO perflutren protein A microsphere (Optison) 3 mL in sodium chloride (PF) 0.9 % 10 mL IV, 0-10 mL, IntraVENous, Once PRN, Iesha Hahns, DO polyethylene glycol (PEG) 3350 (Miralax) packet 17 g, 17 g, Oral, Daily PRN, Iesha Rene Casas, DO sodium chloride 0.9 % infusion, 75 mL/hr, IntraVENous, Continuous, Iesha Rene Casas, DO, Last Rate: 75 mL/hr at 04/23/25 1104, 75 mL/hr at 04/23/25 1104 [2] sodium chloride, 75 mL/hr, Last Rate: 75 mL/hr (04/23/25 1104) * Paul Montano DO - 04/23/2025 5:28 AM EDT ICU Progress Note Name: Tom Booth : 1945(79 y.o.) Date: 04/23/25 Team: MICU Attending: Son Subjective: Hospital Summary: 79 y.o. male with PMH HFrEF, paroxysmal afib, CAD s/p CABG 2019, CKD3, prostate CA, OSIEL, HTN, DMII who presented to outside facility on 04/21/25 for right sided hemiplegia, facial droop, and aphasia with initial NIH 18. CTA head/neck showed left MCA M1 branch occlusion. S/p TNK at outside facility followed by transfer to [facility] for thrombectomy which found left M2 occlusion. Admitted to ICU for further management. Interval Events: No acute overnight events. Patient seen and examined at bedside this morning. No acute distress. Able to speak more clearly but still some difficulty with word finding this morning. No acute complaints or pain. Scheduled Meds:Scheduled Meds[1] Continuous Infusions:Continuous Meds[2] Objective: Last Vitals: BP MAP (!) 151/111 (04/23/25 0500) 124 (04/23/25 0500) Arterial BP MAP Temp 36.5 C (97.7 F) (04/23/25 0000) Pulse 88 (04/23/25 0500) Resp 22 (04/23/25 0500) SpO2 97 % (04/23/25 0500) Weight 162 lb 14.7 oz (73.9 kg) (04/23/25 0519) BMI There is no height or weight on file to calculate BMI. I/O: 04/22 0700 - 04/23 659 In: 3497.5 [P.O.:150; I.V.:3347.5] Out: 1850 [Urine:1850] Invasive Lines / Tubes / Drains: Peripheral IV 04/21/25 Left Antecubital (Active) Number of days: 2 Peripheral IV 04/22/25 Anterior;Right Forearm (Active) Number of days: 1 External Urinary Catheter (Active) Number of days: 1 Central Line Indication: NA - patient does not have a central line Nguyen Indications: NA - patient does not have a Nguyen catheter Restraints: NA - patient is not restrained. Wounds: Wound/Incision 04/22/25 Other (comment) Ankle Anterior;Right (Active) Date First Assessed/Time First Assessed: 04/22/25 003 Present on Original Admission: Yes Primary Wound Type: (c) Other (comment) Location: Ankle Wound Location Orientation: Anterior;Right Wound Description (Comments): abrasion Puncture Site 04/22/25 Groin Anterior;Proximal;Right;Upper (Active) Date First Assessed/Time First Assessed: 04/22/25 0015 Present on Original Admission: No Location: Groin Wound Location Orientation: Anterior;Proximal;Right;Upper Wound Description (Comments): StrokeTeam Arterial Puncture Site Femoral Artery Constitutional: General Appearance [x]WDWN []Obese []Cachectic []Thin []Ill Eyes: Inspection of Pupils/Irises Pupils round and react: [x]Yes []No Sclera: []Icteric [x]Non-Icteric Inspection of Conjunctiva/Lids Conjunctiva: []Injected [x]Non-Injected Lids: [x]Intact []Lesion Present ENT/Mouth: External Inspection of ears/nose [x] Normal [] Scar/Lesion/Mass Inspection of teeth/lips/gums Dentition: [x][place] Teeth []Dentures Lips/Gums: [x]Intact []Lesion Present Mucosa: [x]Roberta [x]Moist []Dry Neck: External Appearance Overall Appearance: [x]Normal []Lesion/Mass/Crepitus Present Trachea midline: [x]Yes []No Thyroid [x]Normal []Enlarged []Tender []Mass []Absent Respiratory: Respiratory effort []Labored [x]Non-Labored [] Mechanically-Ventilated Auscultation [x]Clear []Crackles []Wheezes []Rhonchi Cardiovascular: Auscultation Rate: [x]Regular []Irregular []Tachycardia []Bradycardia Rhythm: [x]Regular []Irregular Murmur: []Present [x]Absent Extremities Peripheral Edema: []Present [x]Absent Varicosities: []Present [x]Absent Gastrointestinal: Abdomen Palpation: [x]Soft []Firm []Tender [x]Non-Tender []Distended [x]Non-distended Mass: []Present [x]Absent Bowel Sounds: [x]Present []Absent Hernia: []Present [x]Absent Liver/Spleen: []Hepatosplenomegaly [x]Organomegaly Absent Musculoskeletal: Inspection of Digits and Nails Cyanosis: []Present [x]Absent Clubbing: []Present [x]Absent Ischemia: []Present [x]Absent Infection: []Present [x]Absent Extremities LEIVA Equally: Except ([]RUE []RLE []LUE []LLE) Strength/Tone: Intact and Normal ([x]RUE [x]RLE [x]LUE [x]LLE) Skin: Inspection [x]Normal []Rash []Lesion []Ulcer Palpation [x]Warm []Cool [x]Dry []Clammy []Nodules []Induration []Skin-tightening Cap-Refill: [x] <3 sec [] >3 seconds (delayed) Neurologic: GCS EYE: 4 - Opens spontaneously GCS MOTOR: 6 - Obeys commands for movement GCS VERBAL: 5 - Oriented to person, place, time Total GCS: 15 [x] Sensation grossly intact Psych: Mental Status Alert: [x]Yes [] No Oriented: []x0 []X1 []X2 [x]x3 Mood/Affect [x]Normal []Flat []Agitated []Depressed []Anxious []Calm []Sedated [x]NAD [facility] Labs within last 24 hours- BMP: Recent Labs 04/21/25232404/22/25 0306 NA 139 138 K 4.6 5.2* CL -- 109* CO2 -- 20* BUN -- 33* CREATININE 1.5* 1.34* CALCIUM -- 9.0 MG -- 1.6 PHOS -- 3.1 LFTs:No results for input(s): AST, ALT, PROT, ALBUMIN, BILITOT, BILIRUBINU, ALKPHOS, LIPASE in the last 72 hours. Glucose: Recent Labs 04/22/25 0306 04/22/25 0544 04/22/25 1202 04/22/25 1657 04/22/25 2309 04/23/25 0516 GLUCOSE 161* -- -- -- -- -- POCGLU -- 156* 136* 145* 109* 120* Procal: No results for input(s): PROCAL in the last 72 hours. CBC: Recent Labs 04/21/25232404/22/256 WBC 15.8* 10.8* HGB 13.4 12.6* HCT 39.9* 38.7* PLT 236 217 MCV 86.9 88.8 RDW 14.0 14.2 ABGs: No results for input(s): PHART, IED9UMV, PO2ART, ENG1AME, SO2ART, W1YLASAI in thelast 72 hours. Lactic Acid: No results for input(s): LACTATE in the last 72 hours. INR: Recent Labs 04/21/252324 INR 1.0 Cardiac Injury Profile: No results for input(s): CKTOTAL, CKMB, TROPONINI in the last 72 hours. Labs in Last 3 months: Lab Results Component Value Date INR 1.0 04/21/2025 Microbiology- Urine Cx: No results found for: URINECX Blood Cx: No results found for: BLOODCX Sputum Cx: No results found for: RESPCULT Gram Stain: No results found for: LABGRAM PNA PCR: No results found for: HUMANMETAPNE COVID19: No results found for: COVID19 Legionella Ag: No results found for: LEGIONELLAPN Strep Ag: No results for input(s): STREPPNEUMO in the last 72 hours. Imaging- CT head wo IV contrast Final Result 1. Findings compatible with acute on subacute/chronic ischemic change and infarcts in the left MCA territory, with probable petechial hemorrhages, similar to comparison. Clinical correlation and follow-up suggested. 2. Probable chronic ischemic and atrophic changes. Report Dictated on Electronically Signed By: Cirilo Canales MD Electronically Signed Date/Time: 04/23/2025 3:43 AM EDT MR brain wo contrast Final Result Scattered small foci of acute infarct throughout the left middle cerebral artery territory. In one focus within the basal ganglia is probably a superimposed hemorrhagic component. Report Dictated on Electronically Signed By: Piter Waldron MD Electronically Signed Date/Time: 04/22/2025 5:24 PM EDT XR chest 1 view Final Result Sternal closure wires noted. No other metallic foreign body. Report Dictated on Electronically Signed By: Alfredo Tirado MD Electronically Signed Date/Time: 04/22/2025 9:45 AM EDT XR abdomen 1 view Final Result No metallic radiopaque foreign body. Report Dictated on Electronically Signed By: Alfredo Tirado MD Electronically Signed Date/Time: 04/22/2025 9:44 AM EDT XR EYE FOREIGN BODY BILATERAL Final Result IR angiogram cerebral with possible intervention Final Result Impression: Endovascular stroke treatment of an occlusion of the M2 segment of the left MCA. There was not significant reperfusion (tIBOF0B of the left MCA territory), but the thrombus after TNK and one attempt moved to a distal M2 segment and further attempts at recanalization were felt to outweigh potential benefit. Report Dictated on Electronically Signed By: Ricky Hebert MD Electronically Signed Date/Time: 04/22/2025 12:41 AM EDT Assessment and Plan: Principal Problem: Acute ischemic left MCA stroke (HCC) Left MCA M1 occlusion s/p TNK and thrombectomy Aphasia Right hemiparesis - s/p TNK and thrombectomy - Repeat CTH unchanged from prior. Will repeat another CTH tomorrow. - MRI completed - Now 24 hours post TNK, okay for normal BP goal per neurology - Start ASA/Plavix today - Continue statin - TTE pending - Okay for PT/OT today DMII with hyperglycemia - Home meds include metformin, Jardiance, glipizide - Continue LDSSI while hospitalized HTN HLD CAD s/p CABG HFrEF - Resume home Coreg today for blood pressure control - Continue ASA/statin Paroxysmal afib - Rate has been controlled this admission CKD3 - Unknown baseline - Daily BMP GI Prophylaxis: n/a DVT Prophylaxis: SCDs - add Lovenox tomorrow Disposition: Remain in ICU Status [1] aspirin, 81 mg, Oral, Daily atorvastatin, 40 mg, Oral, Daily carvedilol, 12.5 mg, Oral, BID WC clopidogrel, 75 mg, Oral, Daily insulin lispro, 0-6 Units, SubCUTAneous, TID WC mupirocin, 1 Application, Nasal, BID [2] sodium chloride, 75 mL/hr, Last Rate: 75 mL/hr (04/22/25 1843) Cosigned by Martin Cline MD at 04/23/2025 6:44 PM EDT Associated attestation - Martin Cline MD - 04/23/2025 6:44 PM EDT I have personally performed a [id number] diagnostic evaluation on this patient on date of service04/23/2025. History, labs, imaging studies, and electronic medical record have been reviewed by me. This note documented by the [x]private household worker []TREMAINE reflects my history, exam, and medical decision making. I have reviewed and agree with the care plan. Changes were made in the orders as necessary. ROS documentation was reviewed and negative unless otherwise stated in HPI. Additional pertinent interval history, ROS, and physical exam findings: 79 yo CM PMH HFpE, paroxysmal afib, CAD s/p CABG 2018, CKD Stage 3, prostate CA, OSIEL, HTN, DMII [facility] with R sided hemiplegia, aphasia, and R sided facial droop. Last known well 2029. CTA Head/neck w/ L MCA M1 branch occlusion. On transfer arrival patient was noted to be significantly aphasic and not participatory. Initial NIH at OSH 18. NIH on arrival 7. Taken to IRfor endovascular intervention. L M2 occlusion noted in middle segment, superior division. TICI 2A reperfusion obtained of L MCA territory after one pass. Further attempts not performed due to distal lesion of the MCA lesion. ICU consulted for further management. Patient seen and examined. Awake, alert, following commands. Speaking more, moving R side more thanon initial presentation. Denies chest pain, shortness of breath, nausea, or abdominal pain. Interval Events: NAEON, doing well. Afebrile and hemodynamically within goals. Assessment: L MCA M1 occlusion s/p TNK and Endovascular thrombectomy Aphasia R hemiparesis Deon Hyperkalemia NAGMA DMII with hyperglycemia Hx HTN Leukocytosis likely reactive Hx of CAD s/p CABG Plan: - Stable, NIH improved from admission 18-> 7. Unchanged - Goal SBP < 140 - S/p TNK 04/22 at 2117. S/Thrombectomy Lt M2 04/22 - Ok for ASA and PLAVIX - ECHO pending - Scr elevated from baseline? OK uop. Check BAKARI - K 5.2 monitor - ISS - PRN labetalol and hydralazine. - pending INTERNAL CONTROLS CONSULTANT DVT px: SCD Total critical care time for this patient with life-threatening unstable organ failure, including direct patient contact, management of life support systems, review of data including imaging and labs, and discussions with other team members and physicians at least 35 min so far today, excluding procedures. * Evelyn Rodriguez MD - 04/22/2025 6:18 PM EDT Spoke to family, patient's and son, at bedside and updated them on MRI findings as listed in the report. Patient's family expressed understanding. Clarified that neuro critical care will review the patient's case and make further recommendations in the coming days. Family also informed that physical therapy will evaluate the patient to help determine disposition. * Bobbi Charles MD - 04/22/2025 5:43 PM EDT MRI shows possible left basal ganglia hemorrhagic transformation, up to 1.2 cm. Reviewed findings with Dr. Jeffery. No changes at this time. Electronically signed by Bobbi Charles MD at 5:45 PM * Esperanza Jeffery MD - 04/22/2025 9:16 AM EDT NEUROCRITICAL CARE PROGRESS NOTE Patient Name: Tom Booth Patient : 1945 Acct: [id number] Date of Admission: 04/21/2025 [facility] PCP: No primary care provider on file. Chief Complaint: L MCA stroke Interval Events: - s/p M2 thrombectomy with one pass with combined suction and stent retrieval with distal M2/Proximal M3 occlusion after 1st pass. - [id number] reperfusion of the left MCA territor Current Hospital Medications: Current Medications[1] Continuous Infusions: Continuous Meds[2] Vitals: Patient Vitals for the past 8 hrs: BP Temp Temp src Pulse Resp SpO2 Weight 04/22/25 0900 (!) 146/117 -- -- 100 20 96 % -- 04/22/25 0830 144/86 -- -- 97 22 96 % -- 04/22/25 0800 144/75 -- -- 96 25 95 % -- 04/22/25 0745 157/78 -- -- 98 18 98 % -- 04/22/25 0730 145/77 -- -- 94 14 96 % -- 04/22/25 0715 138/68 -- -- 98 18 98 % -- 04/22/25 0700 136/73 -- -- 95 15 97 % -- 04/22/25 0630 134/65 36.3 C (97.3 F) Temporal 91 14 -- -- 04/22/25 0626 128/67 -- -- 90 19 97 % -- 04/22/25 0622 (!) 150/135 -- -- 87 16 96 % -- 04/22/25 0621 (!) 150/135 -- -- 91 (!) 26 96 % -- 04/22/25 0601 -- -- -- -- -- -- 75.5 kg (166 lb 7.2 oz) 04/22/25 0600 142/76 36.2 C (97.2 F) -- 87 19 -- -- 04/22/25 0545 139/70 -- -- 81 15 -- -- 04/22/25 0535 137/74 -- -- 84 17 -- -- 04/22/25 0530 (!) 166/78 36.3 C (97.4 F) -- 93 17 -- -- 04/22/25 0515 135/84 -- -- 104 (!) 26 -- -- 04/22/25 0502 149/79 -- -- 93 16 -- -- 04/22/25 0445 144/86 -- -- 87 14 98 % -- 04/22/25 0430 (!) 123/104 36.3 C (97.3 F) -- 92 17 97 % -- 04/22/25 0418 146/94 -- -- 90 14 96 % -- 04/22/25 0415 (!) 160/107 -- -- 101 21 97 % -- 04/22/25 0402 (!) 131/117 -- -- 89 20 95 % -- 04/22/25 0400 -- 36.2 C (97.2 F) -- 88 14 95 % -- 04/22/25 0345 130/90 -- -- 88 17 96 % -- 04/22/25 0330 (!) 144/124 36.4 C (97.5 F) -- 88 17 -- -- 04/22/25 0315 159/71 -- -- 87 16 98 % -- 04/22/25 0300 (!) 128/110 36.3 C (97.4 F) -- 89 20 99 % -- 04/22/25 0245 154/57 36.2 C (97.2 F) -- 96 24 -- -- 04/22/25 0230 149/90 36.3 C (97.4 F) -- 93 21 -- -- 04/22/25 0215 143/99 36.3 C (97.3 F) -- 85 16 98 % -- 04/22/25 0201 147/73 36.3 C (97.3 F) -- 87 18 -- -- 04/22/25 0200 (!) 180/146 -- -- 92 21 -- -- 04/22/25 0145 109/89 36.3 C (97.4 F) -- 90 19 -- -- 04/22/25 0130 142/98 36.3 C (97.3 F) -- 87 13 -- -- I/O last 3 completed shifts: In: 406 (5.4 mL/kg) [I.V.:404 (5.4 mL/kg); IV Piggyback:2] Out: 50 (0.7 mL/kg) [Blood:50] Weight: 75.5 kg Physical Examination: General: No acute distress HEENT: Normocephalic and atraumatic. Cardiac: Regular rate and rhythm Pulm: Breathing comfortably on RA GI/: Nondistended, nontender. Ext: No edema. Skin: No rashes or lesions. Neuro: Aox0. Mixed aphasia expressive > receptive PERRL. EOMI. Midline gaze. VFI. R facial droop. V1-V3 sensation intact. Palate rise symmetrical. Shoulder shrug intact. Tongue midline. LUE 5/5 LLE 5/5 RUE 4/5 RLE 4+/5 Sensation intact to light touch No ataxia or dysmetria. No extinction or neglect. Gait deferred in acute setting. Results: Recent Results (from the past 24 hours) BMPI iSTAT (Lab Only) Collection Time: 04/21/25 11:25 PM Result Value Ref Range Sodium, WB 139 133 - 145 mmol/L POTASSIUM,WB 4.6 3.4 - 5.1 mmol/L CHLORIDE,WB 105 98 - 114 mmol/L CO2 WHOLE BLOOD 23 21 - 29 mmol/L ANION GAP 11.00 3.00 - 13.00 GLUCOSE, WB 189 (H) 70 - 100 mg/dL UREA NITROGEN, WB 34 (H) 4 - 22 mg/dL eGFR, Whole Blood 47.4 CREATININE, WB 1.5 (H) 0.6 - 1.3 mg/dL CALCIUM,IONIZED 4.90 4.30 - 5.20 mg/dl Protime-INR Collection Time: 04/21/25 11:25 PM Result Value Ref Range PROTHROMBIN TIME 10.3 9.0 - 12.0 s INR 1.0 0.9 - 1.1 CBC auto differential Collection Time: 04/21/25 11:25 PM Result Value Ref Range Auto WBC 15.8 (H) 3.6 - 10.7 10*3/uL RBC 4.59 4.40 - 5.90 10*6/uL Hemoglobin 13.4 13.0 - 18.0 g/dL Hematocrit 39.9 (L) 40.0 - 52.0 % MCV 86.9 77.0 - 99.0 fL MCH 29.2 26.0 - 34.0 pg MCHC 33.6 30.5 - 36.0 % RDW 14.0 11.5 - 15.0 % Platelets 236 140 - 440 10*3/uL MPV 9.9 9.0 - 12.7 fL nRBC 0.0 0.0 - 2.0 /100 WBCs Neutrophils Relative 85.3 (H) 38.0 - 82.0 % Lymphocytes Relative 8.2 (L) 15.0 - 45.0 % Monocytes Relative 4.4 (L) 5.0 - 13.0 % Eosinophils Relative 0.9 0.0 - 6.0 % Basophils Relative 0.6 0.0 - 2.0 % Immature Grans % 0.6 0.0 - 2.0 % Neutrophils Absolute 13.5 (H) 1.8 - 7.5 10*3/uL Lymphocytes Absolute 1.3 1.0 - 4.3 10*3/uL Monocytes Absolute 0.7 0.0 - 0.9 10*3/uL Eosinophils Absolute 0.1 0.0 - 0.5 10*3/uL Basophils Absolute 0.1 0.0 - 0.2 10*3/uL Immature Grans Absolute 0.1 (H) <0.1 10*3/uL Serial Troponin, High Sensitivity Collection Time: 04/21/25 11:25 PM Result Value Ref Range Troponin HS Serial Baseline 6 <=35 ng/L Troponin, High Sensitivity, Serial, Second Test Collection Time: 04/22/25 1:18 AM Result Value Ref Range 2h Troponin HS (Serial 2nd Troponin) 7 <=35 ng/L ECG 12 lead if not done in the ED Collection Time: 04/22/25 2:24 AM Result Value Ref Range Heart Rate 88 bpm QRSD Interval 144 ms QT Interval 400 ms QTC Interval 485 ms P Boaz 117 degrees QRS Boaz -3 degrees T Wave Boaz 22 degrees CA Interval 80 ms Lipid panel Collection Time: 04/22/25 3:06 AM Result Value Ref Range TRIGLYCERIDE 72 <150 mg/dL CHOLESTEROL 62 <200 mg/dL HDL CHOLESTEROL 37 (L) >=60 mg/dL CHOL/HDL 2 VERY LOW DENSITY LIPOPROTEIN, CALCULATED 14 <=30 mg/dL NON-HDL CHOLESTEROL, CALCULATED 25 <130 LOW DENSITY LIPOPROTEIN 11 0 - <100 mg/dL Hemoglobin A1c Collection Time: 04/22/25 3:06 AM Result Value Ref Range HEMOGLOBIN A1C 7.1 (H) <5.7 %HbA1C ESTIMATED AVERAGE GLUCOSE 157 mg/dL Phosphorus Collection Time: 04/22/25 3:06 AM Result Value Ref Range PHOSPHORUS 3.1 2.3 - 4.7 mg/dL Magnesium Collection Time: 04/22/25 3:06 AM Result Value Ref Range MAGNESIUM 1.6 1.6 - 2.6 mg/dL Basic metabolic panel Collection Time: 04/22/25 3:06 AM Result Value Ref Range SODIUM 138 136 - 145 mmol/L POTASSIUM 5.2 (H) 3.5 - 5.1 mmol/L CHLORIDE 109 (H) 98 - 107 mmol/L CARBON DIOXIDE 20 (L) 23 - 31 mmol/L UREA NITROGEN 33 (H) 9 - 23 mg/dL CREATININE 1.34 (H) 0.72 - 1.25 mg/dL GLUCOSE 161 (H) 82 - 115 mg/dL CALCIUM 9.0 8.8 - 10.0 mg/dL ANION GAP 9 3 - 13 mmol/L eGFR 54.2 (L) >60.0 mL/min/1.73m*2 CBC auto differential Collection Time: 04/22/25 3:06 AM Result Value Ref Range Auto WBC 10.8 (H) 3.6 - 10.7 10*3/uL RBC 4.36 (L) 4.40 - 5.90 10*6/uL Hemoglobin 12.6 (L) 13.0 - 18.0 g/dL Hematocrit 38.7 (L) 40.0 - 52.0 % MCV 88.8 77.0 - 99.0 fL MCH 28.9 26.0 - 34.0 pg MCHC 32.6 30.5 - 36.0 % RDW 14.2 11.5 - 15.0 % Platelets 217 140 - 440 10*3/uL MPV 9.7 9.0 - 12.7 fL nRBC 0.0 0.0 - 2.0 /100 WBCs Neutrophils Relative 86.3 (H) 38.0 - 82.0 % Lymphocytes Relative 8.1 (L) 15.0 - 45.0 % Monocytes Relative 4.7 (L) 5.0 - 13.0 % Eosinophils Relative 0.0 0.0 - 6.0 % Basophils Relative 0.4 0.0 - 2.0 % Immature Grans % 0.5 0.0 - 2.0 % Neutrophils Absolute 9.3 (H) 1.8 - 7.5 10*3/uL Lymphocytes Absolute 0.9 (L) 1.0 - 4.3 10*3/uL Monocytes Absolute 0.5 0.0 - 0.9 10*3/uL Eosinophils Absolute 0.0 0.0 - 0.5 10*3/uL Basophils Absolute 0.0 0.0 - 0.2 10*3/uL Immature Grans Absolute 0.1 (H) <0.1 10*3/uL Calcium, ionized Collection Time: 04/22/25 3:06 AM Result Value Ref Range Calcium, Ion 4.50 4.30 - 5.20 mg/dL PH, IONIZED CALCIUM 7.38 7.31 - 7.46 POCT glucose meter Collection Time: 04/22/25 5:44 AM Result Value Ref Range Glucose 156 (H) 70 - 100 mg/dL Since admission: No results for input(s): CKTOTAL, TROPONINI in the last 72 hours. No results for input(s): ALKPHOS, ALT, AST, BILITOT, BILIDIR, AMYLASE, LIPASE in the last 72 hours. No lab exists for component: [email or web address] ABGs:)No results for input(s): PH, PO2, PCO2, HCO3, O2SAT in the last 72 hours. No lab exists for component: BE Cultures: Blood culture #1: No lab exists for component: BC Blood culture #2: No lab exists for component: BLOODCULT2 Antiepileptic levels: No results for input(s): PHENYTOIN, PHENOBARB, VALPROATE in the last 72 hours. No lab exists for component: CARBTOT, LAMOTRIG, KEPPRA Coagulation: Recent Labs 04/21/25 2325 INR 1.0 CSF: No results for input(s): CULTURE, PROTEIN in the last 72 hours. No lab exists for component: CHARCSF, CELL COUNT, GRAM STAIN Lipids: Recent Labs 04/22/25 0306 CHOL 62 TRIG 72 HDL 37* HgA1c: No lab exists for component: LABA1C Radiology: Diagnostic Cerebral Angiogram 04/22/25 Left M2 occlusion in the middle segment, superior division. One pass with combined suction and stent retrieval with distal M2/Proximal M3 occlusion after 1st pass. [id number] reperfusion of the left MCA territory. Further attempts not performed due to distal lesion of the MCA lesion. Assessment and Plan: Tom Booth is a 79 yo M with a history of CAD s/p CAG on ASA (no AC) who presents to OSH as full L MCA syndrome. Received TNK at 2116. Transferred for thrombectomy and clinically was improved on arrival. Suspected some degree of recanalization and possible migration of clot to the M2. DCA revealed this to be the case. Dr. Hebert performed M2 thrombectomy with one pass with combined suction and stent retrieval with distal M2/Proximal M3 occlusion after 1st pass. [id number] reperfusion of the left MCA territory. In terms of etiology there is no known history of AF but will monitor. He has significant intracranial atherosclerosis so in the absence of an indication for AC will treat with DAPT x90 days. # L MCA stroke # CAD s/p CABG - MRI brain wo contrast - Allow SBP up to 160 x24h. Reduce to normotension tomorrow AM - Hold DAPT and DVT ppx x24h post TNK. - Start ASA 81mg and plavix 75mg tomorrow AM - DVT ppx tomorrow AM - Echo - A1C, LDL - INTERNAL CONTROLS CONSULTANT now - Hold PT/OT 24h post TNK. Can start tomorrow. Esperanza Jeffery MD Neurocritical Care I spent a total of 40 minutes in my independent critical care time for this neurocritically ill patient who is at high risk for both clinical and neurological decline due to further brain injury, which can occur unpredictably and rapidly cause multi-organ dysfunction. In that time I reviewed the chart including MAR, labs, neuroimaging, other imaging studies and discussed my diagnostic impression and patient's plan of care with my TREMAINE/resident/fellow/student, the consulting team and patient's family members/surrogate decision makers (in cases where the patient is incapacitated and unable to participate in their own care). [1] Current Facility-Administered Medications: acetaminophen (Tylenol) tablet 650 mg, 650 mg, Oral, q6h PRN OR acetaminophen (Tylenol) suppository 650 mg, 650 mg, Rectal, q6h PRN, Iesha Hahns, DO atorvastatin (Lipitor) tablet 40 mg, 40 mg, Oral, Daily, Iesharadha Hahns, DO, 40 mg at 04/22/25 0851 bisacodyl (Dulcolax) suppository 10 mg, 10 mg, Rectal, Daily PRN, Iesha Hahns, DO dextrose 5 % infusion, 100 mL/hr, IntraVENous, PRN, Paul Montano DO dextrose 50 % solution 12.5 g, 12.5 g, IntraVENous, PRN, Paul Montano DO glucagon (human recombinant) injection 1 mg, 1 mg, IntraMUSCular, PRN, Paul Montano DO glucose oral gel 15 g, 15 g, Oral, PRN, Paul Montano DO hydrALAZINE (Apresoline) injection 10 mg, 10 mg, IntraVENous, q1h PRN, Iesha Casas, DO, 10 mg at 04/22/25 0618 insulin regular (HumuLIN R,NovoLIN R) injection 0-6 Units, 0-6 Units, SubCUTAneous, q6h, Paul Montano DO, 1 Units at 04/22/25 0546 labetalol (Normodyne,Trandate) injection 10 mg, 10 mg, IntraVENous, q10 min PRN, Iesha Hahns, DO, 10 mg at 04/22/25 0531 mupirocin (Bactroban) 2 % ointment 1 Application, 1 Application, Nasal, BID, Iesha Anju Casas, DO, 1 Application at 04/22/25 0852 ondansetron ODT (Zofran-ODT) disintegrating tablet 4 mg, 4 mg, Oral, q8h PRN OR ondansetron (Zofran) injection 4 mg, 4 mg, IntraVENous, q6h PRN, Iesha Anju Casas, DO perflutren protein A microsphere (Optison) 3 mL in sodium chloride (PF) 0.9 % 10 mL IV, 0-10 mL, IntraVENous, Once PRN, Iesha Anju Casas, DO polyethylene glycol (PEG) 3350 (Miralax) packet 17 g, 17 g, Oral, Daily PRN, Iesha Anju Casas, DO sodium chloride 0.9 % infusion, 75 mL/hr, IntraVENous, Continuous, Iesha Anju Casas, DO, Last Rate: 75 mL/hr at 04/22/25 0830, 75 mL/hr at 04/22/25829 [2] sodium chloride, 75 mL/hr, Last Rate: 75 mL/hr (04/22/2530) * KRISTIN Peoples - 04/22/2025 7:36 AM EDT Speech-Language Pathology Patient passed the Nursing Swallowing Screening. As per stroke policy, no formal dysphagia evaluation is required. Completed speech orders. * RT Noa (R)(MR) - 04/22/2025 7:31 AM EDT Patient did not answer own screening for MRI, therefore we will need a Chest xray, KUB and Orbit xrays for MRI clearance please documented in this [facility]07-07-2025 Nurse Note* Roxy Bailey RN - 05/01/2025 1:05 PM EDT Report called to [facility]. No further questions. * Irlanda Taveras RN - 04/28/2025 4:00 PM EDT Upon assessment pt had a change in mental status, and woke with a bulging, bloody conjunctiva/pupil. Pt arouses to voice, follows some commands. NIH increase of 3, c/o not being able to see out of R eye. Dr. Chow was messaged via secure & Rapid response team en route. Ophthalmology was consulted and Neurology was re-consulted Pt taken for stat CT. Ophthalmology and Neurology at bedside on return. Conjunctival bleeding noted surrounding R eye. Ophthalmology dilated R pupil. [facility] * Darren Alvarado RN - 04/25/2025 8:15 PM EDT Report called to 3[facility] * Sherin Sanon RN - 04/25/2025 9:50 AM EDT Wound Care consulted for Pressure Injury Prevention. Pt's James score= 16 on 04/24 Pt's pressure points assessed. Pt turned in bed with max assist. Pt's Heels, Buttocks/coccyx, Back,Elbows, Occiput and ears all intact. External catheter in place. Lower coccyx/buttocks with blanchable erythema and mild MASD. Right anterior carney with multiple healing small abrasions. Cleansed withsaline, patted dry and covered with 4x4 foam dressing. Right medial upper thigh with fading ecchymosis. Prevention Measures in place, including: [place] sheet with pillows/wedges, Foam heel protectors (notapplied at this time, pt moving LE's well), Heels elevated off bed on pillows, Sacral foam (in place, intact), Zinc/Moisture Barrier ointment (in place), Waffle chair cushion (in place). Skin Care precaution order set in place. Dietitian consult in place. PT consult in place. D/W nursing staff. Will continue to follow pt. Please Vocera for any questions or concerns. 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 He tolerated his stroke intervention/thrombectomy DCA very well under MAC. Right groin femoral artery puncture site has an 8 Fr Angio-Seal in place. Dressing is dry and intact. No bleeding. No hematoma. He does not appear to be in distress though he has severe expressive aphasia. He is a TICI 2a * Darren Rashid RN - 04/21/2025 11:26 PM EDT Neuro IR Procedures: Tommie is here from the ER [facility] for a Stroke Team possible Cerebral Thrombectomy .He has verbalized understanding of the procedural instructions. Dr. Hebert has spoken to him. History, allergies, medications and lab results reviewed. Informed consent has been signed. Prepped and draped in sterile fashion. Time out performed. He is on a monitor. Patient ready for the procedure. IR is ready Anesthesia is ready documented in this [facility]07-07-2025 Miscellaneous Notes* Care Coordination - Amena Cohen RN - 05/01/2025 12:12 PM EDT Tx team and , patient notified of confirmed transport time for 1 PM to [facility] was sentat 947 AM bernadine done.. * Care Coordination - Unknown Case Management - 05/01/2025 12:12 PM EDT Patient Choice Patient Name: TOM BOOTH Date of : 1945 All Providers Sent Referral Name: [facility] Hospital Address: [address] [place] [address] * Care Coordination - Bertha Spaulding - 05/01/2025 11:47 AM EDT Confirmed pickup time of 1:00pm on 05/01/25 by [email or web address] at phone number [phone]. Location of facility drop off is [facility]. Facility notified via Ac[employer], TCC notified on secure chat. * Care Coordination - Amena Cohen RN - 05/01/2025 11:26 AM EDT Care Management Progress Note Short Medical why still here: Plan is [facility] today - discharged . plastic worker tasked to set up transport as soon as possible today .Home Extension Agent tasked and mar sent- bernadine done. Will update treatment team . Planned Discharge Disposition: Inpatient Rehab Facility Barriers/Today we still Wait: Custom Seamstress recommendations (comment), Facility pre-cert, Clinical stability Length of Stay (Days): 9 GMLOS: 7.3 * Care Coordination - Bertha Spaulding - 05/01/2025 9:47 AM EDT MAR sent to REHAB- [facility] via [facility] per [facility] request. Await review and response regarding ability to accept. TCC notified. * Care Plan - Palmira Markham RN - 05/01/2025 4:36 AM EDT Problem: Knowledge Deficit Goal: Patient/family/caregiver demonstrates understanding of disease process, treatment plan, medications, and discharge instructions Outcome: Progressing Problem: Neurological Deficit Goal: Neurological status is stable or improving Outcome: Progressing Problem: Activity Intolerance/Impaired Mobility Goal: Mobility/activity is maintained at optimum level for patient Outcome: Progressing Problem: Communication Impairment Goal: Ability to express needs and understand communication Outcome: Progressing * Care Plan - Irlanda Taveras RN - 04/30/2025 8:45 AM EDT Problem: Knowledge Deficit Goal: Patient/family/caregiver demonstrates understanding of disease process, treatment plan, medications, and discharge instructions Outcome: Progressing Problem: Neurological Deficit Goal: Neurological status is stable or improving Outcome: Progressing Problem: Activity Intolerance/Impaired Mobility Goal: Mobility/activity is maintained at optimum level for patient Outcome: Progressing Problem: Communication Impairment Goal: Ability to express needs and understand communication Outcome: Progressing Problem: Potential for Compromised Skin Integrity Goal: Skin Integrity is Maintained or Improved Outcome: Progressing Goal: Nutritional status is improving Outcome: Progressing Problem: Urinary Incontinence Goal: Perineal skin integrity is maintained or improved Outcome: Progressing Problem: Problem Interventions Goal: Promote nutritional intake Outcome: Progressing * Care Noel - Flower Marks RN - 04/29/2025 8:10 PM EDT Problem: Knowledge Deficit Goal: Patient/family/caregiver demonstrates understanding of disease process, treatment plan, medications, and discharge instructions Outcome: Progressing Problem: Neurological Deficit Goal: Neurological status is stable or improving Outcome: Progressing Problem: Activity Intolerance/Impaired Mobility Goal: Mobility/activity is maintained at optimum level for patient Outcome: Progressing Problem: Communication Impairment Goal: Ability to express needs and understand communication Outcome: Progressing * Care Coordination - Taylor Pittman RN - 04/29/2025 10:36 AM EDT Care Management Progress Note Short Medical why still here: Uncontrolled BP- still receiving IV bp meds, will need [facility] to re-submit auth. Auth was only good for 04/27 abd 04/28. Requested PT/OT updates Thursday/ Thursday to re-submit auth for IPR. Planned Discharge Disposition: Inpatient Rehab Facility Barriers/Today we still Wait: Custom Seamstress recommendations (comment), Facility pre-cert, Clinical stability Length of Stay (Days): 7 GMLOS: 7.3 * Care Plan - Palmira Markham RN - 04/29/2025 12:58 AM EDT Problem: Knowledge Deficit Goal: Patient/family/caregiver demonstrates understanding of disease process, treatment plan, medications, and discharge instructions Outcome: Progressing Problem: Neurological Deficit Goal: Neurological status is stable or improving Outcome: Progressing Problem: Activity Intolerance/Impaired Mobility Goal: Mobility/activity is maintained at optimum level for patient Outcome: Progressing Problem: Communication Impairment Goal: Ability to express needs and understand communication Outcome: Progressing Problem: Potential for Compromised Skin Integrity Goal: Skin Integrity is Maintained or Improved Outcome: Progressing Goal: Nutritional status is improving Outcome: Progressing Problem: Urinary Incontinence Goal: Perineal skin integrity is maintained or improved Outcome: Progressing Problem: Problem Interventions Goal: Promote nutritional intake Outcome: Progressing * Rapid Response Note - Madan Carballo RN - 04/28/2025 5:25 PM EDT Called to see for change mental status. Pt drowsy, arouses to voice, follows some commands. NIH 14.PEARLA 3mm brisk, c/o not being able to see out of R eye. Pt taken for stat CT. Ophthalmology and Neurology at bedside on return. Conjunctival bleeding noted surrounding R eye. Ophthalmology to dilate R pupil. * Care Plan - Irlanda Taveras RN - 04/28/2025 10:52 AM EDT Problem: Knowledge Deficit Goal: Patient/family/caregiver demonstrates understanding of disease process, treatment plan, medications, and discharge instructions Outcome: Progressing Problem: Neurological Deficit Goal: Neurological status is stable or improving Outcome: Progressing Problem: Activity Intolerance/Impaired Mobility Goal: Mobility/activity is maintained at optimum level for patient Outcome: Progressing Problem: Communication Impairment Goal: Ability to express needs and understand communication Outcome: Progressing Problem: Potential for Compromised Skin Integrity Goal: Skin Integrity is Maintained or Improved Outcome: Progressing Goal: Nutritional status is improving Outcome: Progressing Problem: Urinary Incontinence Goal: Perineal skin integrity is maintained or improved Outcome: Progressing Problem: Problem Interventions Goal: Promote nutritional intake Outcome: Progressing * Care Coordination - Davonte Acuña RN - 04/27/2025 1:27 PM EDT Spoke with , introduced myself and role, updated spouse on discharge plan/process, pending Bp control with adjusted medications, discharge to [facility] when clinically stable, spouse had no further questions/concerns or needs at this time and was thankful for update * Care Coordination - Davonte Acuña RN - 04/27/2025 11:47 AM EDT Notified treatment team of the following - Per [facility] [careport] - We have auth!! MUST admit 04/27 or 7/4. * Care Coordination - Davonte Acuña RN - 04/27/2025 11:01 AM EDT Unable to discharge at this time, BP elevated and meds are currently being adjusted, anticipate discharge to [facility] over the weekend, weekend DP tasked to follow * Care Coordination - Davonte Acuña RN - 04/27/2025 7:58 AM EDT Care Management Progress Note Short Medical why still here: TCC chart review complete, PT/OT/INTERNAL CONTROLS CONSULTANT evals complete, BP elevated - meds adjusted, tele, BUN and wbc's elevated, consults: stroke team, neuro crit, wound prevention, and critical care, regular w/supplement, TCC to follow Planned Discharge Disposition: Inpatient Rehab Facility - [facility] - WILL call arranged - GRAIN UNLOADER tasked Barriers/Today we still Wait: Custom Seamstress recommendations (comment), Facility pre-cert, Clinical stability Length of Stay (Days): 5 GMLOS: 7.3 * Care Coordination - Yazmin Dwyer - 04/26/2025 12:36 PM EDT Transport requested in [employer] for will call. Per TCC request. * Care Coordination - Davonte Acuña RN - 04/26/2025 12:13 PM EDT Tasked GRAIN UNLOADER to setup will call transport for pt to go to [facility] pending auth * Care Coordination - Renee Pettit RN - 04/26/2025 11:41 AM EDT Met with patient and spouse discussed neurology follow up and appointment scheduled. Neurology recommended patient to have a referral to the Cardio- embolic Cryptogenic Stroke Program (CCSP) for a 30 day event monitor. Discussed with patients spouse, she verbalized understanding. CCSP flyer given with instructions and contact phone number. What's Next What's Next Jun 05 Hospital Follow Up with Lakesha Samson APRN - [facility]IF[facility] Thursday 1:00 PM Please arrive 15 minutes prior to appointment, bring insurance card and photo ID. [facility] - [address] [facility] [id number] Arrive at: [facility] * Care Plan - Dafne Weeks RN - 04/26/2025 11:37 AM EDT [facility] * Care Coordination - Davonte Acuña RN - 04/26/2025 8:00 AM EDT Care Management Progress Note Short Medical why still here: TCC chart review complete, Pt lives with spouse, bun and wbc's elevated, ct of head shows acute infarct in the left MCA territory, echo complete, tele, consults: neurology, stroke team, critical careand wound prevention, PT/INTERNAL CONTROLS CONSULTANT eval complete and OT eval still pending, TCC to follow Planned Discharge Disposition: Inpatient Rehab Facility -[facility] w/ liaison to submit auth whenOT eval complete Barriers/Today we still Wait: Clinical stability, Custom Seamstress recommendations (comment), Facility pre-cert, pt received x6 IVP BP meds overnight Length of Stay (Days): 4 GMLOS: 7.3 * Care Plan - Claire Kate RN - 04/26/2025 5:51 AM EDT Problem: Knowledge Deficit Goal: Patient/family/caregiver demonstrates understanding of disease process, treatment plan, medications, and discharge instructions Outcome: Progressing Problem: Neurological Deficit Goal: Neurological status is stable or improving Outcome: Progressing Problem: Activity Intolerance/Impaired Mobility Goal: Mobility/activity is maintained at optimum level for patient Outcome: Progressing Problem: Communication Impairment Goal: Ability to express needs and understand communication Outcome: Progressing Problem: Potential for Compromised Skin Integrity Goal: Skin Integrity is Maintained or Improved Outcome: Progressing Goal: Nutritional status is improving Outcome: Progressing * Care Coordination - Lawanda Beck RN - 04/25/2025 1:19 PM EDT Care Management Progress Note Short Medical why still here: Patient admitted for stroke s/p TNK and DCA reperfusion. Awaiting OT,and start facility precert. Planned Discharge Disposition: Inpatient Rehab Facility ([facility]) Barriers/Today we still Wait: Clinical stability, Custom Seamstress recommendations (comment), Patient/caregiver facility choice 04/25/25 1318 Rapid Rounds Attendance Brim Buster Planned Discharge Disposition IRF ([facility]) Today we still await Clinical stability;Custom Seamstress recommendations (comment);Facility pre-cert Additional Comments: OT requested for see today to start facility precert Will continue to follow for discharge planning with [facility]. Length of Stay (Days): 3 GMLOS: 7.3 * Care Plan - Ella Son RN - 04/25/2025 5:30 AM EDT Problem: Neurological Deficit Goal: Neurological status is stable or improving Outcome: Progressing Problem: Activity Intolerance/Impaired Mobility Goal: Mobility/activity is maintained at optimum level for patient Outcome: Progressing Problem: Communication Impairment Goal: Ability to express needs and understand communication Outcome: Progressing Problem: Potential for Compromised Skin Integrity Goal: Skin Integrity is Maintained or Improved Outcome: Progressing * Care Plan - Myra Crandall RN - 04/24/2025 6:03 PM EDT Pt was up to chair with assistance with nursing and therapy. * Care Coordination - Lawanda Beck RN - 04/24/2025 1:34 PM EDT Care Management Progress Note Short Medical why still here: Patient admitted for stroke s/p TNK and DCA reperfusion. Planned Discharge Disposition: Inpatient Rehab Facility ([facility]) Barriers/Today we still Wait: Clinical stability, Custom Seamstress recommendations (comment), Patient/caregiver facility choice 04/24/25 1330 Rapid Rounds Attendance Brim Buster Planned Discharge Disposition IRF ([facility]) Today we still await Clinical stability;Custom Seamstress recommendations (comment);Patient/caregiver facility choice Additional Comments: PT/OT pending, Initiation assessment completed. CM spoke with patient and spouse Marzena at bedside. Introduced myself and role. Discussed discharge planning. Patient and Marzena agreeable to [facility] at discharge. Both verbalize understanding of needing therapy evaluations prior to facility acceptance. CM provided acute rehab hospital choice list and SNF choice list for back up options. CM tasked [facility] to send referral [facility]. Will continue to follow for discharge planning with [facility]. 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 Manufacturing Engineer Automotive Name/Contact Information: Marzena Booth Spouse [phone] Cognition/Language: WFL - Within Functional Limits Permission given to speak with patient employment representative/caregiver as indicated: Yes Confirmation of Payer with patient/family: Yes Payer Name: [facility] : Confirmation of Primary Care Physician: Confirmed PCP Name: Bre Flores Seen in last 2 years?: Yes Primary Caregiver: Self If assistance needed, confirmed caregiver ready, willing and able to care for patient at discharge: Confirmed with: Living Arrangements Current Residence: Private Residence Number of Floors Number of Entry Steps: Bed/Bath Levels: Facility: Facility Name: Plan to Return: Lives with: Spouse/significant other Support Systems: Spouse/significant other, Family members Activities of Daily Living Ambulation: Independent Bathing/Dressing: Independent Elimination/Continence/Toileting: Independent Feeding: Independent Who Assists with Activities of Daily Living: Instrumental Activities of Daily Living Prescription Coverage: Yes Pharmacy Used: Medication Management: Independent Transportation/Shopping: Independent Transportation Mode: Car Needs Assistance with Transportation at Discharge: Meal Preparation: Independent Laundry/Cleaning: Independent Finances/Bill Paying: Independent Communication: Independent Types of Care Services/Equipment Utilized Care Services: Dialysis Type: Durable Medical Equipment: Patient's Goal/Discharge Plan Patient expects to be discharged to: [facility] Hospital Discharge Planning Actions: Continue to follow Patient's Choice Rights and [employer] and Collaborative Relationships Disclosed as Indicated for Post-Acute Care: Yes Interdisciplinary Team Engagement: Acute Rehab, PT/OT Social Work Referral for: Additional Information: Lawanda Beck RN * Medical Student - Quita Todd MD - 04/24/2025 7:21 AM EDT Neurocritical Care Attending Attestation I personally spent [x] 32, []50 , [] 70 minutes in critical care time for this neurocritically ill patient who is at high risk for both clinical and neurological decline due to further brain injury, which can occur unpredictably and rapidly cause multi-organ dysfunction. During that time I performed a face to face diagnostic evaluation of this patient reviewing labs, imaging studies and the electronic medical record; as well as counseling/coordinating care and provided discussion regarding diagnostic impressions and the plan of care with the consulting team and patient's family members/surrogate decision makers (in cases where the patient is incapacitated and unable to participate in their own care). I have reviewed and agree with the care plan as documented below by: Tess Mackey (PA Student) Any additions or corrections to the HPI, physical exam, assessment and plan are documented below Sil Todd MD Neurocritical Care Attending NEUROCRITICAL CARE PROGRESS NOTE Patient Name: Tom Booth Patient : 1945 Acct: [id number] Date of Admission: 04/21/2025 [facility] A PCP: No primary care provider on file. Chief Complaint: L MCA stroke 04/21, s/p TNK and thrombectomy Hospital Summary: 79 year old male with PMH of CAD s/p CABG (2018) on ASA, paroxysmal Afib (episode post-CABG) without OAC, HFpEF, HTN, T2DM, CKD stage 3, hx of prostate carcinoma in situ, and OSIEL who presented to [place] ED on 04/21 with NIHSS 18: aphasia, R hemiplasia, R facial droop, and R sided extinction. L MCAM1 occlusion found and received TNK @ 2116 with clinical improvement and transferred to [facility] for thrombectomy. On arrival to [facility], NIH: with significant aphasia, R facial droop, R sided weakness UE andLE, RUE drift. DCA showed possible migration of clot to M2 for which Dr. Hebert performed M2 thrombectomy with one pass with combined suction and stent retrieval with distal M2/Proximal M3 occlusion after 1st pass. [id number] reperfusion of the left MCA territory. Patient was admitted to ICU and Neuro[facility] onboard. 04/23- MRI with small stroke burden and minimal hemorrhagic tx on MRI (petechial). DAPT started, Coreg restarted. Interval Events: CTH this AM was stable, no signs of expansion or worsening hemorrhage. SBPs 120s -160s, with PRN labetalol x4 doses and hydralazine x1 dose. Net I/Os: -225. Afebrile. Overnight, NIHs stables between 9-10 but may have been underreported on sensation and arm movement. TTE completed this AM, pending results. Patient is resting comfortably in bed, and his Marzena is at bedside. On exam, NIH 15: L sided gaze preference able to be overcome, R facial droop, RUE no effort against gravity, RLE some effort against gravity, moderate sensory deficit on R side, severe aphasia, mild dysarthria, and some R sided extinction. Due to aphasia, limb ataxia was deferred. Patient was able to answer questions about age and month appropriately when given options. Patient had moved to the chair for breakfast earlier today but difficulty ambulating was reported. Agree with above. notes that this morning RUE appears weaker than yesterday, not able to move antigravity strength and right LE as well weaker compared to yesterday. Current Hospital Medications: Current Medications[1] Continuous Infusions: Continuous Meds[2] Vitals: Patient Vitals for the past 8 hrs: BP Temp Temp src Pulse Resp SpO2 04/24/25 0705 149/77 -- -- 82 24 96 % 04/24/25 0600 (!) 144/105 -- -- 80 20 95 % 04/24/25 0500 133/69 -- -- 70 18 94 % 04/24/25 0400 123/78 36.6 C (97.8 F) -- 75 18 96 % 04/24/25 0300 122/61 -- -- 70 18 97 % 04/24/25 0200 145/63 -- -- 75 21 96 % 04/24/25 0100 138/68 -- -- 78 18 95 % 04/24/25 0030 143/78 -- -- -- -- -- 04/24/25 0007 (!) 162/76 -- -- 81 -- -- 04/24/25 0000 (!) 162/76 36.2 C (97.2 F) Temporal 82 25 96 % I/O last 3 completed shifts: In: 4175 (56.5 mL/kg) [P.O.:450; I.V.:3725 (50.4 mL/kg)] Out: 2525 (34.2 mL/kg) [Urine:2525 (0.9 mL/kg/hr)] Weight: 73.9 kg Physical Examination: General: Well appearing and well developed. HEENT: Normocephalic and atraumatic. Cardiac: Regular rate and rhythm. Pulm: Breathing comfortably on RA. GI/: Nondistended. Ext: No edema. Skin: No rashes or lesions. Neuro: Level of consciousness/Orientation: Alert, oriented when given options (able to provide correct month and age when given options). 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 Follows commands: Difficulty following commands likely due to aphasia. Understands generally what limb command is referring to. Cranial Nerves: Pupils (size, reactivity, position): Equal, round, reactive to light Visual nation difficulty testing due to aphasia. Motor Exam: Tone: Decreased tone of RUE without effort against gravity, RLE some effort against gravity. Normaltone and movement of LUE and LLE Pronator drift: No drift on LUE Sensation: Sensation diminished on R side when compared to L Neglect/Extinction: R sided extinction noted NIH Stroke Score: 1A: Level of Consciousness [x] Alert; keenly responsive 0 [] Arouses to minor stimulation +1 [] Requires repeated stimulation to arouse +2 [] Movements to Pain +2 [] Postures or Unresponsive +3 1B: Ask Month and Age [x] Both Questions Right 0 [] 1 Question Right +1 [] 0 Questions Right +2 [] Dysarthric/Intubated/ Trauma/Language Barrier +1 [] Aphasic +2 1C: 'Blink Eyes' & 'Squeeze Hands' [] Performs Both Tasks 0 [] Performs 1 Task+1 [x] Performs 0 Tasks+2 2: Horizontal Extraocular Movements [] Normal 0 [x] Partial Gaze Palsy: Can Be Overcome +1 [] Partial Gaze Palsy: Corrects with Oculocephalic Reflex +1 [] Forced Gaze Palsy: Cannot Be Overcome +2 3: Visual [place] [x] No Visual Loss 0 [] Partial Hemianopia +1 [] Complete Hemianopia +2 [] Patient is Bilaterally Blind +3 [] Bilateral Hemianopia +3 4: Test Facial Palsy (Use Grimace if Obtunded) [] Normal symmetry 0 [x] Minor paralysis (flat nasolabial fold, smile asymetry) +1 [] Partial paralysis (lower face) +2 [] Unilateral Complete paralysis (upper/lower face) +3 [] Bilateral Complete paralysis (upper/lower face) +3 5A: Left Arm Motor [] Amputation/Joint Fusion 0 [x] No Drift for 10 Seconds 0 [] Drift, but doesn't hit bed +1 [] Drift, hits bed +2 [] Some Effort Against [place] +2 [] No Effort Against [place] +3 [] No Movement +4 5B: Right Arm Motor [] Amputation/Joint Fusion 0 [] No Drift for 10 Seconds 0 [] Drift, but doesn't hit bed +1 [] Drift, hits bed +2 [x] Some Effort Against [place] +2 [x] No Effort Against [place] +3 [] No Movement +4 6A: Left Leg Motor [] Amputation/Joint Fusion 0 [x] No Drift for 5 Seconds 0 [] Drift, but doesn't hit bed +1 [] Drift, hits bed +2 [] Some Effort Against [place] +2 [] No Effort Against [place] +3 [] No Movement +4 6B: Right Leg Motor [] Amputation/Joint Fusion 0 [] No Drift for 5 Seconds 0 [] Drift, but doesn't hit bed +1 [] Drift, hits bed +2 [x] Some Effort Against [place] +2 [] No Effort Against [place] +3 [] No Movement +4 7: Limb Ataxia [] Amputation/Joint Fusion 0 [x] Does Not Understand 0 [] Paralyzed 0 [] No Ataxia 0 [] Ataxia in 1 Limb +1 [] Ataxia in 2 Limbs +2 8: Sensation [] Normal; No sensory loss 0 [] Mild-Moderate Loss: Less Sharp/More Dull +1 [x] Mild-Moderate Loss: Can Sense Being Touched +1 [] Complete Loss: Cannot Sense Being Touched At All +2 [] No Response and Quadriplegic +2 [] Coma/Unresponsive +2 9: Language/Aphasia [] Normal; No aphasia 0 [] Mild-Moderate Aphasia: Some Obvious Changes, Without Significant Limitation +1 [x] Severe Aphasia: Fragmentary Expression, Inference Needed, Cannot Identify materials +2 [] Mute/Global Aphasia: No Usable Speech/Auditory Comprehension +3 [] Coma/Unresponsive +3 10: Dysarthria [] Intubated/Unable to Test 0 [] Normal 0 [x] Mild-Moderate Dysarthria: Slurring but can be understood +1 [] Severe Dysarthria: Unintelligble Slurring or Out of Proportion to Dysphasia +2 [] Mute/Anarthric +2 11: Extinction/Inattention [] No abnormality 0 [x] Visual/tactile/auditory/spatial/personal inattention +1 [] Extinction to bilateral simultaneous stimulation +1 [] Profound fidel-inattention (ex: does not recognize own hand) +2 [] Extinction to >1 modality +2 NIH score is 15. Agree- Alert with global aphasia has both impaired expressive language and impaired comprehension. Left gaze preference, mild neglect of the right hemispace RUE 1/5 RLE - 3/5 (able to lift against agravity but then drifts to bed) Right facial weakness and dysarthria Results: Recent Results (from the past 24 hours) POCT glucose meter Collection Time: 04/23/25 8:15 AM Result Value Ref Range Glucose 111 (H) 70 - 100 mg/dL POCT glucose meter Collection Time: 04/23/25 12:12 PM Result Value Ref Range Glucose 222 (H) 70 - 100 mg/dL POCT glucose meter Collection Time: 04/23/25 4:36 PM Result Value Ref Range Glucose 116 (H) 70 - 100 mg/dL Phosphorus Collection Time: 04/24/25 12:15 AM Result Value Ref Range PHOSPHORUS 2.1 (L) 2.3 - 4.7 mg/dL Magnesium Collection Time: 04/24/25 12:15 AM Result Value Ref Range MAGNESIUM 1.7 1.6 - 2.6 mg/dL Basic metabolic panel Collection Time: 04/24/25 12:15 AM Result Value Ref Range SODIUM 137 136 - 145 mmol/L POTASSIUM 3.8 3.5 - 5.1 mmol/L CHLORIDE 109 (H) 98 - 107 mmol/L CARBON DIOXIDE 18 (L) 23 - 31 mmol/L UREA NITROGEN 27 (H) 9 - 23 mg/dL CREATININE 1.18 0.72 - 1.25 mg/dL GLUCOSE 140 (H) 82 - 115 mg/dL CALCIUM 8.7 (L) 8.8 - 10.0 mg/dL ANION GAP 10 3 - 13 mmol/L eGFR 63.2 >60.0 mL/min/1.73m*2 CBC auto differential Collection Time: 04/24/25 12:15 AM Result Value Ref Range Auto WBC 13.6 (H) 3.6 - 10.7 10*3/uL RBC 4.40 4.40 - 5.90 10*6/uL Hemoglobin 12.7 (L) 13.0 - 18.0 g/dL Hematocrit 38.8 (L) 40.0 - 52.0 % MCV 88.2 77.0 - 99.0 fL MCH 28.9 26.0 - 34.0 pg MCHC 32.7 30.5 - 36.0 % RDW 14.6 11.5 - 15.0 % Platelets 221 140 - 440 10*3/uL MPV 9.5 9.0 - 12.7 fL Calcium, ionized Collection Time: 04/24/25 12:15 AM Result Value Ref Range Calcium, Ion 4.40 4.30 - 5.20 mg/dL PH, IONIZED CALCIUM 7.45 7.31 - 7.46 MANUAL DIFFERENTIAL (CELLAVISION) Collection Time: 04/24/25 12:15 AM Result Value Ref Range RBC Morphology abnormal Poikilocytes Marked (A) (none) Ovalocytes Slight (A) (none) [place] Cells Marked (A) (none) Acanthocytes Moderate (A) (none) Neutrophils % 80 38 - 82 % Bands % 2 (H) <=0 % Lymphocytes % 8 (L) 15 - 45 % Atypical Lymphocytes % 2 (H) <=0 % Monocytes % 8 5 - 13 % Absolute Neutrophil Count 11.2 (H) 1.8 - 7.5 10*3/uL Bands Absolute 0.3 (H) <=0.0 10*3/uL Lymphocytes Absolute 1.1 1.0 - 4.3 10*3/uL Atypical Lymphs Absolute 0.3 (H) <=0.0 10*3/uL Monocytes Absolute 1.1 (H) 0.0 - 0.9 10*3/uL Neutrophils Manual 81 Lymphocytes Manual 8 Monocytes Manual 8 Eosinophils Manual Basophils Manual Bands Manual 2 Metamyelocytes Manual Myelocytes Manual Promyelocytes Manual Blasts Manual Atypical Lymphocytes Manual 2 Unclassified Cells, Manual Coagulation: Recent Labs 04/21/25 2325 INR 1.0 CSF: No results for input(s): CULTURE, PROTEIN in the last 72 hours. No lab exists for component: CHARCSF, CELL COUNT, GRAM STAIN Lipids: Recent Labs 04/22/25 0306 CHOL 62 TRIG 72 HDL 37* HgA1c 7.1 04/21- EKG IMPRESSION: Sinus rhythm Short CA interval Right bundle branch block Radiology: 04/24- CTH IMPRESSION: Stable findings compatible with acute on subacute/chronic ischemic change and infarcts of the left MCA territory, with stable petechial hemorrhage. Chronic microvascular change. 04/22- CTH IMPRESSION: 1. Findings compatible with acute on subacute/chronic ischemic change and infarcts in the left MCA territory, with probable petechial hemorrhages, similar to comparison. Clinical correlation and follow-up suggested. 2. Probable chronic ischemic and atrophic changes. 04/22- MRI brain IMPRESSION: Scattered small foci of acute infarct throughout the left middle cerebral artery territory. In one focus within the basal ganglia is probably a superimposed hemorrhagic component. 04/22- IR DCA IMPRESSION: Endovascular stroke treatment of an occlusion of the M2 segment of the left MCA. There was not significant reperfusion ([id number] of the left MCA territory), but the thrombus after TNK and one attempt moved to a distal M2 segment and further attempts at recanalization were felt to outweigh potential benefit. Attending personal review of imaging: CTH 04/24/25 - Petechial HT in left basal ganglia with surrounding cytoxic edema consistent with acute ischemic stroke, scattered hypodensity within left insular cortex, inferior frontal lobe and temporal lobe- consistent with known areas of acute ischemic stroke. Assessment and Plan: L MCA M1 occlusion (04/21) post-TNK s/p thrombectomy with [id number] of L MCA territory (incomplete recanalization) Asymptomatic petechial hemorrhagic transformation (HI-1) of L basal ganglia, Aphasia, R sided hemiparesis CAD with history of CABG (2018) and an episode of paroxysmal Afib post-procedure HTN, Hyperlipidemia, HFpEF - Etiology: unknown at this time may be atheroembolic (vessel-vessel embolism) from intracranial atherosclerotic disease vs cardioembolic - has a history of post-op atrial fibrillation after a CABG, but will need further evaluation for cardiomebolic etiologies .(- Patient will need prolonged rhythmmonitoring outpatient to check for episodes of Afib.) - rCT this AM was stable in terms of petechial HT, however neurological exam still out of proportion and patient is at risk for neurological deterioration and expansion of petechial hemorrhage- still requires ICU for frequent neuromonitoring. - Repeat CTH in AM for stability - ordered for 04/25 0500 - TTE pending results - Normotension goals- SBP<150, DBP<105. - Restart home losartan at 50mg daily. PRNs: 10mg IV labetalol as needed if BP out of goal. Second line hydralazine 10mg IV as needed. - Continue home coreg 12.5mg - Continue on DAPT with ASA 81mg and plavix 75mg x90 days. followed by ASA monotherapy. If Afib found, switch to oral anticoagulation at that time - Increase Lipitor from 40mg to home dose of 80mg - Continue on normal diet - DVT ppx. On SCDs currently - INTERNAL CONTROLS CONSULTANT/PT/OT - ordered HTN HFpEF CAD with history of CABG (2018) and an episode of paroxysmal Afib post-procedure - Normotension goals- SBP<150, DBP<105. - Patient will need prolonged rhythm monitoring to check for episodes of Afib. - Continue on DAPT with ASA 81mg and plavix 75mg x90 days, followed by ASA monotherapy. If Afib found, switch to oral anticoagulation. - Restart losartan 50mg daily and monitor tolerance. PRNs: 10mg IV labetalol as needed if BP out ofgoal. Second line hydralazine 10mg IV as needed. - Continue home coreg 12.5mg Hyperlipidemia - LDL 11, Triglycerides 72 - Increase Lipitor from 40mg to home dose of 80mg - Home meds include repatha and zetia. T2DM with hyperglycemia - glucose 140 today. HgA1c- 7.1 (04/22) - A1C goals of <7.0 - Continue Humalog TID with meals - Continue outpatient management with Jardiance, Glipizide, and metformin following discharge Hypophosphatemia Hypomagnesemia - Na 137, K 3.8, Josafat 8.7, Chl 109 - Phos 2.1 today. Given 500mg Kphos BID to replenish - Mag 1.7. Given magnesium sulfate IVPB 25mL/hr x 4 hours to replenish CKD stage 3 Anemia likely secondary to above - Hgb 12.7, Htc 38.8, WBC 13.6. [place] Cells, ovalocytes, poikilocytes, acanthocytes noted on smear. Discussed in detail with Dr. Todd Signed by Kym ZAYAS 04/24/25 1:03 PM Quita Todd MD Neurocritical Care Attending [1] Current Facility-Administered Medications: acetaminophen (Tylenol) tablet 650 mg, 650 mg, Oral, q6h PRN OR acetaminophen (Tylenol) suppository 650 mg, 650 mg, Rectal, q6h PRN, Iesha Casas DO aspirin EC tablet 81 mg, 81 mg, Oral, Daily, Paul Montano DO, 81 mg at 04/23/25 0806 atorvastatin (Lipitor) tablet 40 mg, 40 mg, Oral, Daily, Iesha Casas, DO, 40 mg at 04/23/25 0806 bisacodyl (Dulcolax) suppository 10 mg, 10 mg, Rectal, Daily PRN, Iesha Casas DO carvedilol (Coreg) tablet 12.5 mg, 12.5 mg, Oral, BID WC, Paul Montano DO, 12.5 mg at 04/23/25 1644 clopidogrel (Plavix) tablet 75 mg, 75 mg, Oral, Daily, Paul Montano DO, 75 mg at 806 dextrose 5 % infusion, 100 mL/hr, IntraVENous, PRN, Paul Montano DO dextrose 50 % solution 12.5 g, 12.5 g, IntraVENous, PRN, Paul Montano DO glucagon (human recombinant) injection 1 mg, 1 mg, IntraMUSCular, PRN, Paul Montano DO glucose oral gel 15 g, 15 g, Oral, PRN, Paul Montano DO hydrALAZINE (Apresoline) injection 10 mg, 10 mg, IntraVENous, q1h PRN, Iesha Casas DO, 10 mg at 04/23/25 211 Insulin Lispro (Humalog) injection 0-6 Units, 0-6 Units, SubCUTAneous, TID WC, 2 Units at 04/23/25 1216 AND [DISCONTINUED] Insulin Lispro (Humalog) injection 0-6 Units, 0-6 Units, SubCUTAneous, Nightly, Paul Montano DO labetalol (Normodyne,Trandate) injection 10 mg, 10 mg, IntraVENous, q10 min PRN, Iesha Rene Casas, DO, 10 mg at 04/24/25 0007 magnesium sulfate IVPB 4,000 mg, 4,000 mg, IntraVENous, Once, Lai Stahlanal, DO mupirocin (Bactroban) 2 % ointment 1 Application, 1 Application, Nasal, BID, Iesharadha Rene Casas, DO, 1 Application at 04/23/252049 ondansetron ODT (Zofran-ODT) disintegrating tablet 4 mg, 4 mg, Oral, q8h PRN OR ondansetron (Zofran) injection 4 mg, 4 mg, IntraVENous, q6h PRN, Iesharadha Rene Casas, DO perflutren protein A microsphere (Optison) 3 mL in sodium chloride (PF) 0.9 % 10 mL IV, 0-10 mL, IntraVENous, Once PRN, Iesharadha Rene Casas, DO phosphorus (K Phos Neutral) tablet 2 tablet, 500 mg, Oral, BID, Lai Stahlanal, DO polyethylene glycol (PEG) 3350 (Miralax) packet 17 g, 17 g, Oral, Daily PRN, Iesharadha Rene Casas, DO [2] * Care Plan - Alex De Leon RN - 04/22/2025 5:56 AM EDT Problem: Knowledge Deficit Goal: Patient/family/caregiver demonstrates understanding of disease process, treatment plan, medications, and discharge instructions Outcome: Progressing Problem: Neurological Deficit Goal: Neurological status is stable or improving Outcome: Progressing Problem: Activity Intolerance/Impaired Mobility Goal: Mobility/activity is maintained at optimum level for patient Outcome: Progressing Problem: Communication Impairment Goal: Ability to express needs and understand communication Outcome: Progressing * Brief Op Note - Ricky Hebert MD - 04/22/2025 12:25 AM EDT Date: 04/22/2025 Location: Specials Name: Tom Booth, : 1945, Diagnosis Left MCA occlusion Procedures Mechanical thrombectomy Surgeons MD Emilee Procedure Summary Anesthesia: Conscious sedation, Vignesh ANG ASA: None Estimated Blood Loss: minimal Drains: none Staff: RT Darren Carreno, RN Wai, SAV Findings: Left M2 occlusion in the middle segment, superior division. One pass with combined suction and stent retrieval with distal M2/Proximal M3 occlusion after 1st pass. [id number] reperfusion of the left MCA territory. Further attempts not performed due to distal lesion of the MCA lesion. Complications: None; patient tolerated the procedure well. Specimens Collected: * Cannot find OR log * Wound Class: Class I: Clean Blood Products: None Prophylactic Antibiotics: Pre-operative antibiotics were not given because antibiotics are not indicated for this procedure. documented in this [facility]07-07-2025 [facility] 05-01-2025 Hospital course Narrative* Rick Chow MD - 05/01/2025 11:50 AM EDT Images from the original note were not included. Discharge Summary Tom Booth : 1945 ADMIT DATE: 04/21/2025 DISCHARGE DATE: 05/01/2025 PRIMARY CARE PHYSICIAN: rBe Flores VISIT STATUS: Admission CODE STATUS: Full Code DISCHARGE DIAGNOSES: Principal Problem: Acute ischemic left MCA stroke (HCC) Left MCA acute embolic infarct with petechial hemorrhagic transformation PAF not currently on DOAC Hypertension Hyperlipidemia Type 2 diabetes mellitus with hyperglycemia NAGMA likely due to NS infusion Hypocalcemia Leukocytosis Normocytic anemia CAD Hx CABG OSIEL HFpEF HOSPITAL COURSE: Mr. Tom Booth 79-year-old male with past medical history of CAD status post CABG in 2019 onaspirin monotherapy, paroxysmal atrial fibrillation not on anticoagulation prior to hospital admission, heart failure with preserved ejection fraction (66% 04/21/2025 TTE), hypertension, type 2 diabetes mellitus, CKD 3, history of prostate carcinoma in situ, and OSIEL on PAP therapy who presented to outside hospital emergency department on 04/21. Initial deficits: Aphasia, right upper and lower extremity weakness, right-sided facial droop, and right-sided extinction. Initial NIH was calculated at 18. Left MCA infarct. Given TNK around 2116 and transferred to [facility] for thrombectomy. M2-proximal M3 dysfunction and stent retrieval after first pass. Found to have petechial hemorrhagic transformation on MRI from 629. Head CT performed morning of 04/25/2025, stable. Echocardiogram showed EF 63% with no valvular abnormalities. He was DC to the [facility] 04/26. Isosorbide was stopped due to stroke - consider resuming as outpatient. BP medications were adjusted for high BP with improvement. On 04/28 orbital hemorrhage noted right eye. CT head showed orbital hemorrhage and known stroke. ASA/Plavix/Lovenox held. He was observed off it. Neurology recommended stopping plavix, resuming Lovenox and increase the dose of ASA to 2 x 81 mg (assuming no issues) on 05/04. Patient did have POS fecal occult - Hb was stable so no need to scope per GI. He was DC to rehab. Would recommend follow up hemoglobin. SIGNIFICANT DIAGNOSTIC STUDIES: MRI brain CT head Echocardiogram CONSULTANTS: Neurology RECOMMENDED NEXT STEPS: SNF Follow up Hb DISCHARGE MEDICATIONS: Medication List START taking these medications amLODIPine 10 MG tablet Commonly known as: Norvasc Take 1 tablet (10 mg) by mouth daily. * aspirin 81 MG EC tablet Take 1 tablet (81 mg) by mouth daily for 2 days. * aspirin 81 MG EC tablet Take 2 tablets (162 mg) by mouth daily. Do not start before May 04, 2025. Start taking on: May 04, 2025 melatonin 5 MG tablet Take 1 tablet (5 mg) by mouth Nightly as needed (sleep). senna-docusate sodium 8.6-50 MG tablet Commonly known as: Senokot-S Take 2 tablets by mouth daily. sodium chloride 0.65 % nasal spray Commonly known as: [place] Administer 1 spray into each nostril every 2 hours as needed for congestion. * This list has 2 medication(s) that are the same as other medications prescribed for you. Read thedirections carefully, and ask your doctor or other care provider to review them with you. CONTINUE taking these medications atorvastatin 80 MG tablet Commonly known as: Lipitor carvedilol 12.5 MG tablet Commonly known as: Coreg doxazosin 2 MG tablet Commonly known as: Cardura empagliflozin 25 MG Commonly known as: Jardiance glipiZIDE XL 2.5 MG 24 hr tablet Commonly known as: Glucotrol XL losartan 100 MG tablet Commonly known as: Cozaar metFORMIN 850 MG tablet Commonly known as: Glucophage Repatha SureClick 140 MG/ML injection Generic drug: evolocumab Zetia 10 MG tablet Generic drug: ezetimibe STOP taking these medications isosorbide mononitrate ER 30 MG 24 hr tablet Commonly known as: Imdur Where to Get Your Medications These medications were sent to [facility] [address] [place] [id number] Hours: Thursday to Thursday 10 am to 6 pm aspirin 81 MG EC tablet Information about where to get these medications is not yet available Ask your nurse or doctor about these medications amLODIPine 10 MG tablet aspirin 81 MG EC tablet melatonin 5 MG tablet senna-docusate sodium 8.6-50 MG tablet sodium chloride 0.65 % nasal spray DIET: Adult diet Regular; 4 carb choices (60 gm/meal) ACTIVITY: Up with assist COMPLEXITY OF FOLLOW UP: [x] Moderate Complexity: follow up within 7-14 calendar days (72503) [] Severe Complexity: follow up within 7 calendar days (22123) FOLLOW UP TESTING, PENDING RESULTS OR REFERRALS AT TRANSITIONAL CARE VISIT: [] Yes [x] No PENDING STUDIES: none DISPOSITION: rehab FACILITY/HOME CARE AGENCY NAME: [facility] Follow up with Lakesha Samson APRN - [employer]AK[employer] SUPERVISOR [address] [address] [facility] [id number] Follow up on 06/05/2025 Follow up from hospital stay at 1:00 PM Bre Flores DO [address] [facility] [place] [address] Call in 1 week(s) on INSTRUCTIONS TO MA/SW: Please call patient on day after discharge (must document patient contacted within 2 business days of discharge). FOLLOW UP QUESTIONS FOR MA/SW: 1. Did you get medications filled and taking them as instructed from discharge? 2. Are you following your discharge instructions from your hospital stay? 3. Please confirm patient is scheduled for a follow up appointment within the above time frame. DISCHARGE TIME: > 30 minutes SIGNED: Rick Chow MD 05/01/2025, 11:50 AM documented in this [facility]07-06-2025 Consult note* Areli Acuña MD - 04/30/2025 1:44 PM EDTAssociated Order(s): IP CONSULT TO GI GASTROENTEROLOGY INPATIENT CONSULT NOTE Patient: Tom Booth Date of : 1945 Age: 79 y.o. Sex: male MD Bre Coulter, Subjective: Chief Complaint: FOBT +, Anemia History of Present Illness: Pt's is present at bedside and provides most of history given pt's recent CVA 04/21 Pt can nod head appropriately to some questions and can say yes/no to some questions Pt denies abdominal pain, denies vomiting Also spoke to pt's nurse. Per nurse, pt's recent BM was brown, pt has not required blood transfusion, and per nurse, last dose of Plavix was 04/28/2025 Prior Colonoscopy: per - approx 7 yrs ago in [facility] (Dr. Rodriguez). Minimal findings per pt'swife (hemorrhoids) but she does not recall any other details (no repeat colonoscopy was recommendedper pt's due to advanced age) Medical History[1] DM HTN Social History Occupational History Not on file Tobacco Use Smoking status: Not on file Smokeless tobacco: Not on file Substance and Sexual Activity Alcohol use: Not on file Drug use: Not on file Sexual activity: Not on file Current Medications[2] Allergies: Allergies[3] Review of Systems: Limited ROS due to CVA Objective: Physical Exam: BP 117/65 (BP Location: Right arm, Patient Position: Lying) Pulse 92 Temp 36.4 C (97.6 F) (Temporal) Resp 18 Ht 5' 10 (1.778 m) Wt 153 lb 3.5 oz (69.5 kg) SpO2 93% BMI 21.98 kg/m Gen: NAD Skin: warm, dry Eyes: anicteric sclera, conjunctivae hemorrhage right eye ENT: +facial droop Chest: CTA, no wheezes, normal effort CV: regular rate, regular rhythm Abdominal: benign, soft, +BS, nontender, nondistended Ext: no cyanosis, cords, edema, changes right side c/w recent CVA Neuro: consistent with recent CVA Labs/Studies reviewed in [facility] at current clinic visit April 30, 2025 Lab Results Component Value Date WBC 12.0 (H) 04/30/2025 HGB 11.7 (L) 04/30/2025 HCT 36.0 (L) 04/30/2025 MCV 88.2 04/30/2025 PLT 257 04/30/2025 No results found for: ALT, AST, GGT, ALKPHOS, BILITOT No GI related imaging results ASSESSMENT/PLAN: H/O CVA Occult Blood Positive H/O Antiplatelet Therapy - last dose Plavix per nurse was 7/4 per pt's nurse Subconjunctival hemorrhage right eye - evaluated by Opthalmology --Serial H/H, transfuse as appropriate --Monitor for clinical signs of bleeding - currently none --Plavix is currently being held by primary team --Do not plan on endoscopy at this time --GI inpatient service will follow peripherally and sign off at this time, please call if new issues/questions arise. --Dr. Richardson will start coverage of inpatient GI service starting Thursday am05/01/2025 Signed By: Areli Acuña MD 04/30/2025 [1] History reviewed. No pertinent past medical history. [2] Current Facility-Administered Medications: acetaminophen (Tylenol) tablet 650 mg, 650 mg, Oral, q6h PRN, 650 mg at 04/27/25 1724 OR acetaminophen (Tylenol) suppository 650 mg, 650 mg, Rectal, q6h PRN, Se Sherman DO amLODIPine (Norvasc) tablet 10 mg, 10 mg, Oral, Daily, Rick Subichin, MD, 10 mg at 04/30/25 0821 [Held by provider] aspirin EC tablet 81 mg, 81 mg, Oral, Daily, Rick Chow MD, 81 mg at 04/30/25 0849 atorvastatin (Lipitor) tablet 80 mg, 80 mg, Oral, Daily, Se Sherman DO, 80 mg at 04/29/252010 bisacodyl (Dulcolax) suppository 10 mg, 10 mg, Rectal, Daily PRN, Se Sherman DO carvedilol (Coreg) tablet 12.5 mg, 12.5 mg, Oral, BID WC, Rick Chow MD, 12.5 mg at 0 [Held by provider] clopidogrel (Plavix) tablet 75 mg, 75 mg, Oral, Daily, Se Sherman DO,75 mg at 04/28/25 0823 dextrose 5 % infusion, 100 mL/hr, IntraVENous, PRN, Se Sherman DO dextrose 50 % solution 12.5 g, 12.5 g, IntraVENous, PRN, Se Sherman DO [Held by provider] enoxaparin (Lovenox) syringe 40 mg, 40 mg, SubCUTAneous, Daily, Rick Chow MD, 40 mg at 04/30/25 0820 glucagon (human recombinant) injection 1 mg, 1 mg, IntraMUSCular, PRN, Se Sherman DO glucose oral gel 15 g, 15 g, Oral, PRN, Se Sherman DO hydrALAZINE (Apresoline) injection 10 mg, 10 mg, IntraVENous, q1h PRN, Rick Chow MD Insulin Lispro (Humalog) injection 0-6 Units, 0-6 Units, SubCUTAneous, TID WC, 3 Units at 04/30/25 1201 AND [DISCONTINUED] Insulin Lispro (Humalog) injection 0-6 Units, 0-6 Units, SubCUTAneous, Nightly, Paul Montano DO labetalol (Normodyne,Trandate) injection 10 mg, 10 mg, IntraVENous, q10 min PRN, Se Sherman DO, 10 mg at 04/29/25 0452 losartan (Cozaar) tablet 100 mg, 100 mg, Oral, Daily, Tasha Gonzalez, JIVE DEVELOPER - [employer]AKERS SUPERVISOR, 100 mg at 04/30/25 0821 melatonin tablet 5 mg, 5 mg, Oral, Nightly, Rick Chow MD, 5 mg at 04/29/252010 ondansetron ODT (Zofran-ODT) disintegrating tablet 4 mg, 4 mg, Oral, q8h PRN OR ondansetron (Zofran) injection 4 mg, 4 mg, IntraVENous, q6h PRN, Se Sherman DO polyethylene glycol (PEG) 3350 (Miralax) packet 17 g, 17 g, Oral, Daily PRN, Se Sherman DO senna-docusate sodium (Senokot-S) 8.6-50 MG tablet 2 tablet, 2 tablet, Oral, Daily, Rick Chow MD, 2 tablet at 04/30/25 0820 sodium chloride ([place]) 0.65 % nasal spray 1 spray, 1 spray, Each Nostril, q2h PRN, Rick Chow MD sodium chloride 0.9 % infusion, 50 mL/hr, IntraVENous, Continuous, Rick Chow MD, Last Rate:50 mL/hr at 04/29/252010, 50 mL/hr at 04/29/252010 [3] Allergies Allergen Reactions Fosinopril Unknown generic caused constipation Lovastatin Unknown generic causes constipation Azithromycin Rash * Chandler Diaz MD - 04/28/2025 5:35 PM EDTAssociated Order(s): IP CONSULT TO OPHTHALMOLOGY Ophthalmology consult note Present illness: 79 yo male 1 week status post 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 Stat message from floor nurse to see patient emergently due to possible 'rupture' of right eye (OD), possibility that patient 'can't see out of it',and right globe is huge on CT scan'. Eye examination: Patient has sight in both eyes but level of visual acuity is unable to be measureddue to dysphasia. External examination reveals a circumferential bulging subconjunctival hemorrhageright eye (OD). Cornea, anterior chamber and iris clear both eyes (OU). Pupils equal and reactive to light (CLEMENT). No afferent pupillary defect (APD). EOM's full and comitant both eyes (OU). Intraocular pressure (IOP) measures 12.2 mmHg right eye (OD). Dilated funduscopic exam right eye (OD) reveals clear vitreous without any evidence of hemorrhage. Optic disc, retinal vasculature, central and peripheral retina clear and normal. Functionality of visual nation difficult to determine due to dyspha leonides. Impression: Subconjunctival hemorrhage right eye (OD)/rule out possible relationship to anticoagulants patient is being treated with. Disposition: Discussed at length with patient's spouse. Reassured her about the benign nature of the subconjunctival hemorrhage. Explained that it would take 2- 3 weeks for hemorrhage to clear. * Lawanda Beck RN - 04/24/2025 1:49 PM EDTAssociated Order(s): IP CONSULT TO CASE MANAGEMENT Acknowledges case management consult, will follow for discharge planning. * David Gonzalez MD - 04/21/2025 11:39 PM EDT STROKE TEAM NOTE Patient Name: Tom Booth Patient : 1945 Acct: [id number] Date of Admission: 04/21/2025 Room/Bed: KARLY/NONE PCP: No primary care provider on file. Stroke team; Prehospital activation History of Present Ilness: 79 y.o. is r handed male with the chief Complaint of: R hemiplegia, neglect Onset time: last seen well;2029 ED arrival: 2316 Stroke teamactivation 2313 NIHSS upon arrival:7 Associated symptoms: minor facial paralysis, global aphasia, RUE drift. This occurred in the setting of: Seen and examined in outside ED, NIHSS documented as 18: L gaze, Rsided paralysis, global apahasia. Was found to have a Large L MCA (M1, proximal M2) distribution stroke on CT angio head not known to be on OAC with R sided paralysis LKW 2030, given TNK at 2117 19 mg with some improvement of R sided paralysis. Case was discussed with Dr. Jeffery and he was transferred to [facility] ED to ED transfer for thrombectomy. Outside imaging, labs, past medical history, past surgical history per outside paper chart: CT angio neck with contrast: No significant vessel stenosis identified. CT angio head with contrast: Near-total occlusion of the left MCA M1 segment and proximal M2 segments. Mild edema of the left basal ganglia and left insula extending to mid left frontal lobe compatible with early infarct. Mild to moderate calcified plaques of bilateral internal carotid cavernous segments with mild to moderate stenosis. CT head/brain without contrast: No acute intracranial abnormality identified. EKG: Sinus rhythm, right bundle branch block. Lab results - WBC 8.8 - Hemoglobin 12.8 - Hematocrit 38.1 - Platelets 223 - Neutrophil percent 65.6 - Pro time 11 - PT to INR ratio 1.0 - Glucose 196 - Sodium 141 - Potassium 4.5 - BUN 39 - Serum creatinine 1.47 Past medical history: - HFpEF - Anemia - CAD of nome artery - CKD stage III - Type 2 diabetes - Hypertension - History of carcinoma in situ of the prostate - Hypercholesterolemia - Kidney stone - Leukocytosis - Osteopenia - Paroxysmal A-fib - History of skin cancer - Unspecified sleep apnea - Subclinical hyperthyroidism - Unspecified thrombocytopenia - History of NSTEMI Surgical history - Cardiac catheterization 04/12/2018, 12/05/2022 - CABG 04/15/2018 Home medications -Aspirin 81 mg - Atorvastatin 80 mg daily - Coreg 12.5 mg twice daily - Doxazosin 2 mg daily - Glipizide 2.5 mg daily - Ibuprofen 400 mg daily as needed - Isosorbide mononitrate 30 mg daily - Jardiance 25 mg daily - Losartan 100 mg daily - Magnesium oxide 400 mg daily - Melatonin 5 mg nightly as needed - Metformin 850 mg daily - Multivitamin daily - Nitroglycerin 0.4 mg sublingual tablet every 5 minute as needed - Omeprazole 20 mg daily - Repatha subcutaneously 140 mg every 2 weeks - Zetia 10 mg daily Allergies - Mevacor, unknown - Monopril, unknown - Zithromax, rash Current use of anticoagulants: no If on anticoagulants when was last dose: n/a Preadmission secondary prevention antiplatelets and statins: ASA81, atorvastatin 80 mg History of AF: paroxysmal Contraindications for thrombolytic treatment: no according to data obtain from patient / family andreview of records available Past Medical History: - HFpEF - Anemia - CAD of nome artery - CKD stage III - Type 2 diabetes - Hypertension - History of carcinoma in situ of the prostate - Hypercholesterolemia - Kidney stone - Leukocytosis - Osteopenia - Paroxysmal A-fib - History of skin cancer - Unspecified sleep apnea - Subclinical hyperthyroidism - Unspecified thrombocytopenia - History of NSTEMI Past Surgical History: - Cardiac catheterization 04/12/2018, 12/05/2022 - CABG 04/15/2018 Home Medications: -Aspirin 81 mg - Atorvastatin 80 mg daily - Coreg 12.5 mg twice daily - Doxazosin 2 mg daily - Glipizide 2.5 mg daily - Ibuprofen 400 mg daily as needed - Isosorbide mononitrate 30 mg daily - Jardiance 25 mg daily - Losartan 100 mg daily - Magnesium oxide 400 mg daily - Melatonin 5 mg nightly as needed - Metformin 850 mg daily - Multivitamin daily - Nitroglycerin 0.4 mg sublingual tablet every 5 minute as needed - Omeprazole 20 mg daily - Repatha subcutaneously 140 mg every 2 weeks - Zetia 10 mg daily Current Hospital Medications: Current Medications[1] Continuous Infusions: Continuous Meds[2] Allergies: Patient has no allergy information on record. Social History: TOBACCO: has no history on file for tobacco use. ETOH: has no history on file for alcohol use. RECREATIONAL DRUG USE: Social History Substance and Sexual Activity Drug Use Not on file FamilyHistory: :Unable to obtain, due to patient level of consciousness, no data on file, no family able to provide information @[email or web address]@ [facility]; :Unable to obtain review of systems due to patient's mental status and lack of cooperation Review of Systems Physical Examination: Patient Vitals for the past 8 hrs: BP Pulse Resp SpO2 04/22/25 0002 (!) 146/72 90 15 100 % 04/21/25 2325 (!) 193/86 103 20 95 % No intake/output data recorded. VITAL SIGNS : HR103 , BP 193/86 , RR 20. Pulse Ox 95% General Physical Examination: General: awake, alert, follows commands, aphasic HEENT:Normocephalic, atraumaticl CV: S1+S2, RRR, no MRG. Pulm:CTA b/l, unlabored Abdomen: Soft NT/ND. BS + Large 8 cm diameter mass in RLQ/superior groin Skin: slight breakdown on R carney, appears traumatic Extremities: normal with no edema or cyanosis Orthopedic limitation; No Pulses: Intact peripherally Carotid auscultation :No bruits Neurological Examination: Higher Functions: Mental Status Exam: Level of Alertness:Awake Orientation: Aphasic Memory: Aphasic Fund of Knowledge: Aphasic Language: Global aphasia Dysarthria not present Cranial Nerves: -II Visual acuity: abnormal, limited due to patient unable to perform exam -II Visual nation: poor reliability due to patient level ofconsciousness or structural limitation -III Pupils (~ 3 mm OD, 3 mm OU) equal, round, reactive to light -III-IV- Extraocular Movements: intact -Nystagmus not present -Saccades and pursuits normal -V Facial sensation: intact Corneal's Intact bilateral -VII Facial strength: intact -VIII Hearing: intact -IX-X- Gag reflex present -X Palate:intact -XI Shoulder shrug: poor cooperation -XII Tongue movement: normal Motor Examination: Tone after evaluation of 4 limbs, the following findings applied: Normal . . -Bulk: normal -Muscle Stretchafter evaluation of all limbs, and axial musculature the following findings applied: Drift: present RUE -Reflexes: after evaluation of 4 limbs, the following findings applied ; normal all limbs -Plantar responce: Flexor bilaterally Sensory appears normal but limited reliability, Coordination: Arms limited reliability of exam/ poorparticipation Legs limited reliability of exam/ poor participation Tremors present on the right side Gait abnormal, patient unable to walk due to acute circumstances / bedrest / safety concerns NIHSS 1a Level of consciousness: 0=alert; keenly responsive 1b. LOC questions: 2=Performs neither task correctly Aphasic 1c. LOC commands: 0=Performs both tasks correctly 2. Best Gaze: 0=normal 3. Visual: 0=No visual loss 4. Facial Palsy: 1=Minor paralysis (flattened nasolabial fold, asymmetric on smiling) 5a. Motor left arm: 0=No drift, limb holds 90 (or 45) degrees for full 10 seconds 5b. Motor right arm: 1=Drift, limb holds 90 (or 45) degrees but drifts down before full 10 seconds:does not hit bed 6a. motor left le=No drift, limb holds 90 (or 45) degrees for full 10 seconds 6b Motor right le=No drift, limb holds 90 (or 45) degrees for full 10 seconds 7. Limb Ataxia: 0=Absent 8. Sensory: 0=Normal; no sensory loss 9. Best Language: 3=Mute, global aphasia; no usable speech or auditory comprehension 10. Dysarthria: 0=Normal 11. Extinction and Inattention: 0=No abnormality 12. Distal motor function: 0=Normal Total: 7 Ancillary Data: Labs: Recent Results (from the past 24 hours) KERWIN Rodriguez (Lab Only) Collection Time: 04/21/25 11:25 PM Result Value Ref Range Sodium, WB 139 133 - 145 mmol/L POTASSIUM,WB 4.6 3.4 - 5.1 mmol/L CHLORIDE,WB 105 98 - 114 mmol/L CO2 WHOLE BLOOD 23 21 - 29 mmol/L ANION GAP 11.00 3.00 - 13.00 GLUCOSE, WB 189 (H) 70 - 100 mg/dL UREA NITROGEN, WB 34 (H) 4 - 22 mg/dL eGFR, Whole Blood 47.4 CREATININE, WB 1.5 (H) 0.6 - 1.3 mg/dL CALCIUM,IONIZED 4.90 4.30 - 5.20 mg/dl Protime-INR Collection Time: 04/21/25 11:25 PM Result Value Ref Range PROTHROMBIN TIME 10.3 9.0 - 12.0 s INR 1.0 0.9 - 1.1 CBC auto differential Collection Time: 04/21/25 11:25 PM Result Value Ref Range Auto WBC 15.8 (H) 3.6 - 10.7 10*3/uL RBC 4.59 4.40 - 5.90 10*6/uL Hemoglobin 13.4 13.0 - 18.0 g/dL Hematocrit 39.9 (L) 40.0 - 52.0 % MCV 86.9 77.0 - 99.0 fL MCH 29.2 26.0 - 34.0 pg MCHC 33.6 30.5 - 36.0 % RDW 14.0 11.5 - 15.0 % Platelets 236 140 - 440 10*3/uL MPV 9.9 9.0 - 12.7 fL nRBC 0.0 0.0 - 2.0 /100 WBCs Neutrophils Relative 85.3 (H) 38.0 - 82.0 % Lymphocytes Relative 8.2 (L) 15.0 - 45.0 % Monocytes Relative 4.4 (L) 5.0 - 13.0 % Eosinophils Relative 0.9 0.0 - 6.0 % Basophils Relative 0.6 0.0 - 2.0 % Immature Grans % 0.6 0.0 - 2.0 % Neutrophils Absolute 13.5 (H) 1.8 - 7.5 10*3/uL Lymphocytes Absolute 1.3 1.0 - 4.3 10*3/uL Monocytes Absolute 0.7 0.0 - 0.9 10*3/uL Eosinophils Absolute 0.1 0.0 - 0.5 10*3/uL Basophils Absolute 0.1 0.0 - 0.2 10*3/uL Immature Grans Absolute 0.1 (H) <0.1 10*3/uL Serial Troponin, High Sensitivity Collection Time: 04/21/25 11:25 PM Result Value Ref Range Troponin HS Serial Baseline 6 <=35 ng/L No results for input(s): PH, PO2, PCO2, HCO3, O2SAT in the last 72 hours. No lab exists for component: BE Recent Labs 04/21/25 2325 INR 1.0 Radiology: CT angio neck with contrast: No significant vessel stenosis identified. CT angio head with contrast: Near-total occlusion of the left MCA M1 segment and proximal M2 segments. Mild edema of the left basal ganglia and left insula extending to mid left frontal lobe compatible with early infarct. Mild to moderate calcified plaques of bilateral internal carotid cavernous segments with mild to moderate stenosis. CT head/brain without contrast: No acute intracranial abnormality identified. ASSESSMENT This is a 79-year-old man with a pertinent past medical history of CAD s/p CABG, paroxysmal A-fib not on DOAC per outside records who presented to [place] ED with NIH of 18 for global aphasia, left gaze, right-sided flaccid paralysis with a last known well of 2029. He underwent CT angio neck, head,CT brain with pertinent findings of a near total occlusion of the left MCA M1 segment and proximal M2 segments. He received 19 mg of TNK at 2116 and after case was discussed with Dr. Jeffery he was transferred to [facility] for thrombectomy. PLAN/RECOMMENDATIONS: - Admit to Hospital in ICU - T2 - Thrombolytic treatment at outside ED - Neurochecks q15 minutes x 1 hour, followed by q30 minutes x 6 hours and then q1h x 24 hours SBP <180 mmHg, DBP <105 mmHg, MAP >65 mmHg - Complete bedrest - No antiplatelets/antiothrombotics in first 24 hours after tPA - NPO until swallow evaluation - NO invasive lines, (nguyen/NG/central line or arterial punctures at non- compressible sites for 24 hours) - repeat CT head in 24 hours after tPA or with any change in neurological examination unless MRI isdone instead. - MRI brain without contrast. (Add contrast if MRA neck is being done with contrast ) - TTE - Telemetry monitoring for 24 hrs - Fall precautions - Speech and Swallow evaluation, nutrition consultation - Physical and occupational therapy consultation - Rehab consultation - IPC for VTE prevention Consenting documentation Personal discussion regarding: , Current standard of care supports endovascular rescue approach as an option of treatment that offers better outcomes and a better chance for survival and survival with good quality of life than medical therapy alone. For every 2 patient's treated 1 will do better. Patient and family communicated understanding of the fact that the procedure has risks including stroke, , hemorrhage, injury to vessels, allergic reactions to contrast dye as well as renal failure -Consent obtained via Marzena at [phone] Jeffery . [1] No current facility-administered medications for this encounter. No current outpatient medications on file. Facility-Administered Medications Ordered in Other Encounters: dexmedeTOMIDine HCl in NaCl (Precedex) injection, , IntraVENous, PRN, CAN Rojo CRNA, 4 mcg at 04/22/25 0014 fentaNYL (Sublimaze) injection, , IntraVENous, PRN, CAN Rojo CRNA, 25 mcg at 04/21/25 2341 midazolam (Versed) injection, , IntraVENous, PRN, CAN Rojo MECHANICAL SPECIALIST, 1 mg at 04/21/25 2340 ondansetron (Zofran) injection, , IntraVENous, PRN, CAN Rojo CRNA, 4 mg at 04/21/25 2340 sodium chloride 0.9 % infusion, , IntraVENous, Continuous PRN, Vignesh Ryan, JIVE DEVELOPER - MECHANICAL SPECIALIST, Last Rate: 100 mL/hr at 04/21/25 2330, Restarted at 04/22/25 0024 [2] Cosigned by Esperanza Jeffery MD at 04/22/2025 9:36 AM EDT Associated attestation - Esperanza Jeffery MD - 04/22/2025 9:36 AM EDT NCC/Stroke Attestation I personally saw the patient and performed a substantive portion of the medical decision making. This included the creation and/or approval of the management plan for the number and complexity of problems addressed at this visit and the ongoing responsibility for that plan and its inherent risk. Interval history Agree with history as below Exam Agree with exam as below Assessment and Plan Tom Booth is a 79 yo M with a history of CAD s/p CAG on ASA (no AC) who presents to OSH as full L MCA syndrome. Received TNK at 2116. Transferred for thrombectomy and clinically was improved on arrival. Suspected some degree of recanalization and possible migration of clot to the M2. DCA revealed this to be the case. Dr. Hebert performed M2 thrombectomy with one pass with combined suction and stent retrieval with distal M2/Proximal M3 occlusion after 1st pass. [id number] reperfusion of the left MCA territory. In terms of etiology there is no known history of AF but will monitor. He has significant intracranial atherosclerosis so in the absence of an indication for AC will treat with DAPT x90 days. # L MCA stroke # CAD s/p CABG - MRI brain wo contrast - Allow SBP up to 160 x24h. Reduce to normotension tomorrow AM - Hold DAPT and DVT ppx x24h post TNK. - Start ASA 81mg and plavix 75mg tomorrow AM - DVT ppx tomorrow AM - Echo - A1C, LDL - INTERNAL CONTROLS CONSULTANT now - Hold PT/OT 24h post TNK. Can start tomorrow. Esperanza Jeffery MD Neurocritical Care I spent a total of 40 minutes in my independent critical care time for this neurocritically ill patient who is at high risk for both clinical and neurological decline due to further brain injury, which can occur unpredictably and rapidly cause multi-organ dysfunction. In that time I reviewed the chart including MAR, labs, neuroimaging, other imaging studies and discussed my diagnostic impression and patient's plan of care with my TREMAINE/resident/fellow/student, the consulting team and patient's family members/surrogate decision makers (in cases where the patient is incapacitated and unable to participate in their own care). documented in this encounterSTriHealth Good Samaritan [id number] [facility]ST[facility]25 NoteSpeech-Language Pathology Patient passed the Nursing Swallowing Screening. As per stroke policy, no formal dysphagia evaluation is required. Completed speech orders.[facility]06-28-[facility] Hospital Discharge instructions* Discharge Instructions* Alex De Leon RN - 04/22/2025 3:24 AM EDT Refer to the Understanding Stroke Booklet given to you, written material provided to patient/family, addressing all signs & symptoms of a stroke, which are: sudden numbness or weakness of the face, arm or leg, especially on one side of the body sudden confusion sudden difficulty speaking or understanding sudden trouble seeing in one or both eyes sudden trouble walking,dizziness, loss of balance or coordination sudden severe headache with no known cause syncope or temporary loss of consciousness seizure Explained the need to call EMS ([phone]) immediately if signs & symptoms occur. Discussed medications that the patient is taking, will review medications again prior to discharge, risk factors, and the need for follow-up with a physician/RN EMPLOYEE HEALTH/PA after discharge. Alex De Leon RN on 04/22/25 at 3:23 AM Discussed the patient s personal risk factors for Stroke /TIA with patient/family, and ways to reduce the risk for a recurrent stroke. Patient's personal risk factors which were identified are: [x] High blood pressure [] High cholesterol [x] Atrial fibrillation [x] Diabetes [] Smoking/e-cigarettes/vaping [] Smokeless tobacco [] Overweight [x] Lack of Exercise [] Sleep apnea [x] Prior heart disease or heart attack [] Excessive alcohol use [] Marijuana/cannabis use [] Illicit drug use [] Personal history of previous TIA or stroke [] Family history of stroke or heart disease [] Carotid stenosis [x] Heart failure [] Patent Foramen Ovale [] Migraine [] Hormone replacement therapy [] Current (up to six weeks post ) [] Depression [] Sickle Cell [] Renal insufficiency - chronic [] None Refer to Understanding Stroke Booklet. Advised patient that risk for stroke/TIA can be reduced by modifying/controlling risk factors. Patient advised to take medications as prescribed, which will be detailed in the discharge instructions, and to not stop taking them without consulting a physician. In addition, pt. advised to maintain a healthy diet, exercise regularly and to not smoke. Alex De Leon RN on 04/22/25 at 3:23 AM * Appointments* Renee Pettit RN - 04/26/2025 11:43 AM EDT Please call Bertha Iniguez APRN at with [facility] to schedule a 30 day monitor upon patients discharge from [facility]. * Discharge Instr - BERNADINE* Rick Chow MD - 04/24/2025 1:39 PM EDT Images from the original note were not included. Continuity of Care Form Patient Name: Tom Booth : 1945 Admit date: 04/21/2025 Discharge date: 05/01/2025 Code Status Order: Full Code Advance Directives: N Admitting Physician: Madan Alvares MD PCP: Bre Flores DO Discharging Nurse: THI Márquez Discharging Hospital Unit/Room#: 3w 335 Discharging Unit Emergency Contact: Extended Emergency Contact Information Primary Emergency Contact: Marzena Booth Mobile Relation: Spouse Secondary Emergency Contact: Maxi Booth Mobile Relation: Son Past Surgical History: No past surgical history on file. Immunization History: Immunization History Administered Date(s) Administered COVID-19, mRNA, LNP-S, PF, 50 mcg/0.5 mL 07/16/2023, 07/28/2024 Covid-19, Moderna Bivalent Booster, (Age 6y-11y) 07/08/2022 Moderna SARS-CoV-2 Vaccination 07/31/2021, 02/25/2022 Active Problems: Medical Problems Problem List * (Principal) Acute ischemic left MCA stroke (HCC) Isolation/Infection: No active isolations No active infections Nurse Assessment: Last Vital Signs: BP 157/82 Pulse 87 Temp 36.9 C (98.4 F) (Axillary) Resp 25 Ht 1.778 m (5'10) Wt 73.5 kg (162 lb) SpO2 95% BMI 23.24 kg/m Last documented pain score (0-10 scale): Last Weight: Wt Readings from Last 1 Encounters: 04/24/25 73.5 kg (162 lb) Mental Status: BERNADINE Patient Mental Status: oriented and alert: aphasic - with choices A&O X 4. IV Access: BERNADINE IV Access: None Nursing Mobility/ADLs: Walking Total assistance Transfer Minimal assistance Bathing Minimal assistance Dressing Minimal assistance Toileting Minimal assistance Feeding Minimal assistance Vp Foundation Minimal assistance Med Delivery yes Wound Care Documentation and Therapy: Wound/Incision 04/22/25 Other (comment) Ankle Anterior;Right (Active) Site Assessment Dry;Intact 04/24/25 1200 Roselia-Wound Assessment Dry 04/24/25 1200 Odor None 04/24/25 1200 Drainage Amount None 04/24/25 1200 Primary Dressing Foam 04/24/25 1200 Dressing Status Clean, dry & intact 04/24/25 0827 Number of days: 2 Puncture Site 04/22/25 Groin Anterior;Proximal;Right;Upper (Active) Location Femoral - right 04/24/25 1200 Site Assessment No redness, drainage, swelling or hematoma 04/24/25 1200 Hemostasis Intervention Closure Device 04/23/25 1600 Dressing Applied Transparent occlusive dressing 04/23/251999 Multiple Puncture Sites No 04/23/251999 Number of days: 2 Elimination: Continence: Bowel: yes Bladder: no Urinary Catheter: None Colostomy/Ileostomy/Ileal Conduit: None Date of Last BM: 05/01/2025 Intake/Output Summary (Last 24 hours) at 04/24/2025 1339 Last data filed at 04/24/2025 1300 Gross per 24 hour Intake 2725 ml Output 2075 ml Net 650 ml I/O last 3 completed shifts: In: 4175 (56.5 mL/kg) [P.O.:450; I.V.:3725 (50.4 mL/kg)] Out: 2525 (34.2 mL/kg) [Urine:2525 (0.9 mL/kg/hr)] Weight: 73.9 kg Safety Concerns: at risk for falls Impairments/Disabilities: speech Nutrition Therapy: Current Nutrition Therapy: Oral diet: carb control 4 carbs/meal (1800kcals/day) Routes of Feeding: oral Liquids: thin liquids Daily Fluid Restriction: no Last Modified Barium Swallow with Video (Video Swallowing Test): not done Treatments at the Time of Hospital Discharge: Respiratory Treatments: none Oxygen Therapy: is not on home oxygen therapy. Ventilator: No ventilator support Rehab Therapies: physical therapy, occupational therapy, and speech therapy Weight Bearing Status/Restrictions: no restriction Other Medical Equipment (for information only, NOT a DME order): none Other Treatments: none Patient's personal belongings (please select all that are sent with patient): glasses and clothes RN SIGNATURE: MANAGEMENT/SOCIAL WORK SECTION Inpatient Status Date: 04/22/2025 Discharging to Facility/ Agency [place] [address] Dialysis Facility (if applicable) Name: Address: Dialysis Schedule: Phone: Fax: Brim Buster/Quarter Supervisor signature: ICIAN SECTION Name: Tom Booth Prognosis: good Condition at Discharge: stable Rehab Potential (if transferring to Rehab): good Recommended Labs or Other Treatments After Discharge: Hemoglobin The individual is being admitted to a nursing facility directly from an [facility] or a unit of a hospital that is not operated by or licensed by [facility] under section 5119.14 or 5160-3-15.1 5 The individual requires the level of services provided by a nursing facility for the condition for which he or she was treated in the hospital and, Physician Certification: I certify the above information and transfer of Tom Booth is necessary for the continuing treatment of the diagnosis listed and that he requires half-way facility for less than 30 days. Update Admission H&P: No change in H&P PHYSICIAN SIGNATURE: documented in this [facility]06-28-2025 [facility] 04-22-2025 History and physical note* Chuy Boswell, DO - 04/22/2025 12:06 AM EDT Images from the original note were not included. Internal Medicine: MICU Initial History and Physical Name: Tom Booth : 1945(79 y.o.) Date: 04/22/25 Attending: Dr. Alvares Subjective: Chief Complaint: Left MCA occlusion s/p TNK (at [place]) and mechanical thrombectomy at [facility] HPI: Patient transferred from [place] s/p TNK (administered at 2116) for possible thrombectomy via [facility]. LWK 2029. Initial NIH of 18 on arrival at [place] for right sided flaccid paralysis with extinction of the right side. PMH significant for HFpEF, paroxysmal afib (rate controlled with coreg),CAD s/p cabg (03/2019) and cardiac cath (03/2018, and 11/2022), hx NSTEMI, ckd stage 3, T2DM, HTN, prostate cancer, osteopenia, , skin cancer, hyperthyroidism, thrombocytopenia, sleep apnea. Workup at [place] significant for CT angio head with findings consistent with early infarct including near total occlusion of the Left MCA M1 segment and proximal M2 segments with mild edema of the left basal ganglia and left insula extending into the mid left frontal lobe. Other significant labs at [place]: glucose 196, Creatinine 1.47, BUN 29, Platelets 223, Na 141, K 4.5 On arrival to [facility], patient had an NIH of 7 for minor facial paralysis, global aphasia and RUE drift. [facility] staff reported this was an improvement from initial symptoms.Dr. Hebert and the stroke team evaluated the patient and recommended mechanical thrombectomy. Labs at [facility] significant for anion gap 11, creatinine 1.5, BUN 34, WBC 15.8, Hg 13.4, PT 10.3, INR 1.0, and glucose 189 Patient underwent thrombectomy with Dr. Dr. 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 The patient is to be admitted to the ICU for further treatment and management. Medical History[1] Surgical History[2] Family History[3] Social History Socioeconomic History Marital status: Spouse name: Not on file Number of children: Not on file Years of education: Not on file Highest education level: Not on file Occupational History Not on file Tobacco Use Smoking status: Not on file Smokeless tobacco: Not on file Substance and Sexual Activity Alcohol use: Not on file Drug use: Not on file Sexual activity: Not on file Other Topics Concern Not on file Social History Narrative Not on file Social Drivers of Health Financial Resource Strain: Not on file Food Insecurity: Not on file Transportation Needs: Not on file Physical Activity: Not on file Stress: Not on file Social Connections: Not on file Intimate Partner Violence: Not on file Housing Stability: Not on file Allergies[4] Prior to Admission medications Not on File Objective: Oxygen Delivery: VITALS: BP (!) 146/72 Pulse 90 Resp 15 SpO2 100% CURRENT PULSE OXIMETRY: SpO2: 100 % Review of Systems Unable to perform ROS: Acuity of condition Constitutional: General Appearance [x]WDWN []Obese []Cachectic []Thin []Ill Eyes: Inspection of Pupils/Irises Pupils round and react: [x]Yes []No Sclera: []Icteric [x]Non-Icteric Inspection of Conjunctiva/Lids Conjunctiva: []Injected [x]Non-Injected Lids: [x]Intact []Lesion Present ENT/Mouth: External Inspection of ears/nose [x] Normal [] Scar/Lesion/Mass Inspection of teeth/lips/gums Dentition: [][place] Teeth []Dentures Lips/Gums: [x]Intact []Lesion Present Mucosa: [x]Roberta []Moist []Dry Neck: External Appearance Overall Appearance: [x]Normal []Lesion/Mass/Crepitus Present Trachea midline: [x]Yes []No Thyroid []Normal []Enlarged []Tender []Mass []Absent Respiratory: Respiratory effort []Labored [x]Non-Labored [] Mechanically-Ventilated Auscultation [x]Clear []Crackles []Wheezes []Rhonchi Cardiovascular: Auscultation Rate: [x]Regular []Irregular []Tachycardia []Bradycardia Rhythm: []Regular [x]Irregular Murmur: []Present [x]Absent Extremities Peripheral Edema: []Present [x]Absent Varicosities: []Present [x]Absent Gastrointestinal: Abdomen Palpation: [x]Soft []Firm []Tender [x]Non-Tender []Distended [x]Non-distended Mass: []Present [x]Absent Bowel Sounds: []Present []Absent Hernia: [x]Present []Absent Liver/Spleen: []Hepatosplenomegaly [x]Organomegaly Absent Musculoskeletal: Inspection of Digits and Nails Cyanosis: []Present [x]Absent Clubbing: []Present [x]Absent Ischemia: []Present [x]Absent Infection: []Present [x]Absent Extremities LEIVA Equally: Except ([x]RUE []RLE []LUE []LLE) Strength/Tone: Intact and Normal ([]RUE [x]RLE [x]LUE [x]LLE) Skin: Inspection []Normal []Rash [x]Lesion (abrasion right carney)[]Ulcer Palpation []Warm [x]Cool []Dry []Clammy [x]Nodules -lipoma right groin []Induration []Skin-tightening Cap-Refill: [x] <3 sec [] >3 seconds (delayed) Neurologic: GCS EYE: 4 - Opens spontaneously GCS MOTOR: 6 - Obeys commands for movement GCS VERBAL: 3 - Inappropriate words Total GCS: 13 [] Sensation grossly intact Psych: Mental Status Alert: [x]Yes [] No Oriented: []x0 [x]X1 []X2 []x3 Mood/Affect [x]Normal []Flat []Agitated []Depressed []Anxious []Calm []Sedated []NAD [facility] within last 24 hours- BMP: Recent Labs 04/21/252324 NA 139 K 4.6 CREATININE 1.5* LFTs: No results for input(s): AST, ALT, PROT, ALBUMIN, BILITOT, BILIRUBINU, ALKPHOS,LIPASE in the last 72 hours. Glucose: No results for input(s): GLUCOSE, POCGLU, BHYDRXBUT in the last 72 hours. Procal: No results for input(s): PROCAL in the last 72 hours. CBC: Recent Labs 04/21/252324 WBC 15.8* HGB 13.4 HCT 39.9* PLT 236 MCV 86.9 RDW 14.0 ABGs: No results for input(s): PHART, LTS9NMG, PO2ART, XZG3GFD, SO2ART, P8XNFHYH in thelast 72 hours. Lactic Acid: No results for input(s): LACTATE in the last 72 hours. INR: Recent Labs 04/21/252324 INR 1.0 Cardiac Injury Profile: No results for input(s): CKTOTAL, CKMB, TROPONINI in the last 72 hours. Labs in Last 3 months: Lab Results Component Value Date INR 1.0 04/21/2025 Microbiology- Urine Cx: No results found for: URINECX Blood Cx: No results found for: BLOODCX Sputum Cx: No results found for: RESPCULT Gram Stain: No results found for: LABGRAM PNA PCR: No results found for: HUMANMETAPNE COVID19: No results found for: COVID19 Legionella Ag: No results found for: LEGIONELLAPN Strep Ag: No results for input(s): STREPPNEUMO in the last 72 hours. Imaging- abnormal CT angio head with findings consistent with early infarct including near total occlusion of the Left MCA M1 segment and proximal M2 segments with mild edema of the left basal ganglia and left insula extending into the mid left frontal lobe. Assessment and Plan: Active Problems: There are no active Hospital Problems. Assessment: Left MCA occlusion s/p TNK (at [place]) and mechanical thrombectomy at [facility] CAD s/p CABG (03/2019) and cardiac cath (03/2018, and 11/2022), HFpEF T2DM CKD3 HTN HLD OSIEL Paroxysmal Afib (rate controlled on Coreg) Subclinical Hyperthyroidism Plan: Admit to ICU T2 BP goals SBP <180, DBP <105, MAP >[address] Neurochecks q15 minutes x 1 hour, followed by q30 minutes x 6 hours and then q1h x 24 hours Hold antiplatelets/DVT prophylaxis in first 24 hours post-tPA NPO pending INTERNAL CONTROLS CONSULTANT evaluation Repeat CT head 24 hours following tPA or sooner with any changes in neurological exam MRI brain wo contrast pending TTE pending Telemetry monitoring for 24 hours A1c, lipid panel pending PT/OT GI Prophylaxis: Not indicated DVT Prophylaxis: SCDs BMI Classification: There is no height or weight on file to calculate BMI. overweight BMI 25-29.9 Disposition: Admit to ICU T2 Critical Care Time: 55 minutes Total critical care time caring for this patient with life threatening, unstable organ failure, including direct patient contact, management of life support systems, review of data including imaging and labs, discussions with other team members and physicians, excluding procedures. [1] No past medical history on file. [2] No past surgical history on file. [3] No family history on file. [4] Not on File Cosigned by Madan Alvares MD at 04/22/2025 2:11 AM EDT Associated attestation - Madan Alvares MD - 04/22/2025 2:11 AM EDT Attending Supervising Physician's Attestation Statement for ICU Admission I have personally seen the patient and examined along with the resident. I personally obtained the braswell and relevent portions of the history and performed physical exam. I reviewed the chart includingMAR, labs, and radiology and agree with the patient's plan of action as discussed with the resident. This note reflects my plan of care as I have edited the note to reflect my findings and my assessment and plan. ROS documentation was reviewed and negative unless otherwise stated in HPI. Chief Complaint: L MCA Stroke Additional pertinent history, ROS, and physical exam findings: 79 yo M PMH HFpE, paroxysmal afib, CAD s/p CABG 2018, CKD Stage 3, prostate CA, OSIEL, HTN, DMII who presented to [facility] ED with R sided hemiplegia, aphasia, and R sided facial droop. Last known well 2029. CTA Head/neck w/ L MCA M1 branch occlusion. On transfer arrival patient was noted to be significantly aphasic and not participatory. Initial NIH at OSH 18. NIH on arrival 7. Taken to IR for endovascular intervention. L M2 occlusion noted in middle segment, superior division. TICI 2A reperfusion obtained of L MCA territory after one pass. Further attempts not performed due to distal lesion of the MCA lesion. ICU consulted for further management. Patient seen and examined. Awake, alert, following commands. Speaking more, moving R side more thanon initial presentation. Denies chest pain, shortness of breath, nausea, or abdominal pain. Physical Exam Constitutional: General Appearance [x]WDWN []Obese []Cachectic []Thin []Ill Eyes: Inspection of Pupils/Irises Pupils round and react: [x]Yes []No Sclera: []Icteric [x]Non-Icteric Inspection of Conjunctiva/Lids Conjunctiva: []Injected [x]Non-Injected Lids: [x]Intact []Lesion Present ENT/Mouth: External Inspection of ears/nose [x] Normal [] Scar/Lesion/Mass Inspection of teeth/lips/gums Dentition: [x][place] Teeth []Dentures Lips/Gums: [x]Intact []Lesion Present Mucosa: [x]Roberta [x]Moist []Dry Neck: External Appearance Overall Appearance: [x]Normal []Lesion/Mass/Crepitus Present Trachea midline: [x]Yes []No Thyroid [x]Normal []Enlarged []Tender []Mass []Absent Respiratory: Respiratory effort []Labored [x]Non-Labored [] Mechanically-Ventilated Auscultation [x]Clear []Crackles []Wheezes []Rhonchi Cardiovascular: Auscultation Rate: [x]Regular []Irregular []Tachycardia []Bradycardia Rhythm: [x]Regular []Irregular Murmur: []Present [x]Absent Extremities Peripheral Edema: []Present [x]Absent Varicosities: []Present []Absent Gastrointestinal: Abdomen Palpation: [x]Soft []Firm []Tender [x]Non-Tender []Distended [x]Non-distended Mass: []Present [x]Absent Bowel Sounds: [x]Present []Absent Hernia: []Present []Absent Liver/Spleen: []Hepatosplenomegaly []Organomegaly Absent Musculoskeletal: Inspection of Digits and Nails Cyanosis: []Present [x]Absent Clubbing: []Present [x]Absent Ischemia: []Present [x]Absent Infection: []Present [x]Absent Extremities LEIVA Equally: Except ([x]RUE [x]RLE []LUE []LLE) Strength/Tone: Intact and Normal ([]RUE []RLE [x]LUE [x]LLE) Skin: Inspection [x]Normal []Rash []Lesion []Ulcer Palpation [x]Warm []Cool []Dry []Clammy []Nodules []Induration []Skin-tightening Cap-Refill: [x] <3 sec [] >3 seconds (delayed) Neurologic: GCS EYE: 4 - Opens spontaneously GCS MOTOR: 6 - Obeys commands for movement GCS VERBAL: 4 - Confused Total GCS: 14 [] Sensation grossly intact NIH: 5 Psych: Mental Status Alert: [x]Yes [] No Oriented: []x0 []X1 [x]X2 []x3 Mood/Affect [x]Normal []Flat []Agitated []Depressed []Anxious []Calm []Sedated []NAD Assessment and Plan: L MCA M1 occlusion s/p TNK and Endovascular thrombectomy Aphasia R hemiparesis DMII with hyperglycemia Hx HTN Leukocytosis likely reactive - admit to T2 ICU - status post thrombolytics per protocol - NeuroCC consult - neuro checks and NIHSS per orders - SBP <180 mmHg, DBP <105 mmHg, MAP >65 mmHg - hold anti-platelets - start statin - check Echo, troponin - Check HgbA1c - Repeat CT Head in 24 hours - Check MRI - telemonitoring - bed rest - NPO pending speech eval - PT/OT/speech eval - glucose checks, correction insulin. - monitor creatinine. Continue gentle fluid hydration. Code Status: Full Code Disposition: Admit to ICU Total critical care time caring for this patient with life threatening, unstable organ failure, including direct patient contact, management of life support systems, review of data including imaging and labs, discussions with other team members and physicians is 45 minutes, excluding procedures. Madan Alvares MD Pulmonary and Critical Care Medicine Attending Pager #[phone] documented in this [facility]06-27-2025 Emergency department Note* Radha Cordova DO - 04/21/2025 11:16 PM EDT Emergency Department Encounter [facility] EMERGENCY DEPT Patient: Tom Booth : 1945 Date of Evaluation: 04/21/2025 ED Supervising Physician: Radha Cordova DO I personally evaluated Tom Booth and made/approved the management plan and take responsibility for the patient management. This will serve as my Supervisory note and shared attestation. I did perform a substantive portion of the visit including all aspects of the Medical Decision Making. I wore appropriate PPE for the entirety of this encounter. In brief, Tom Booth is a 79 y.o. [place]. Last known well 2029. Received TNK 2116. Arrives via [facility] for ER assessment for embolectomy candidacy. Focused exam: BP 149/90 Pulse 93 Temp 36.3 C (97.3 F) (Temporal) Resp 21 SpO2 98% Constitutional: Alert, awake Lungs: CTABL, no wheezing, no rales Heart: RRR , no murmurs Neuro: NIHSS 10 Brief ED course/MDM: 79 y.o. that presents to the emergency department as transfer from [place] [facility] for left MCA CVA. Last known well 2029. Received TNK 2116. Arrives via [facility] for ER assessment for embolectomy candidacy. NIHSS on arrival 10. Evaluated by interventional neurology and taken for embolectomy from the ER. Total critical care time today provided was at least 10 minutes. This excludes seperately billable procedure. Critical care time provided for CVA that required close evaluation and/or intervention with concern for patient decompensation. All diagnostic, treatment, and disposition decisions were made by myself in conjunction with the Resident. I also supervised braswell portions of any procedures performed by the Resident. For all further details of the patient's emergency department visit, please see their documentation. (Comment: Please note this report has been produced using speech recognition software and may contain errors related to that system including errors in grammar, punctuation, and spelling, as well as words and phrases that may be inappropriate. If there are any questions or concerns please feel freeto contact the dictating provider for clarification.) Radha Cordova DO [employer] Radha Cordova DO 04/22/25 0240 * Chacho Esparza DO - 04/21/2025 11:16 PM EDT EMERGENCY DEPARTMENT ENCOUNTER Pt Name: Tom Booth Birthdate 1945 Date of evaluation: 04/21/2025 ED Provider: Chacho Esparza DO CHIEF COMPLAINT Chief Complaint Patient presents with Extremity Weakness Right hemiplegia/neglect. From [facility] with L MCA occlusion lkw 2029. TNK 2116 HISTORY OF PRESENT ILLNESS (Location/Symptom, Timing/Onset, Context/Setting, Quality, Duration, Modifying Factors, Severity) Note limiting factors. I wore appropriate PPE for the entirety of this encounter. HPI Tom Booth is a 79 y.o. who presents to the emergency department Patient is a transfer from [place] found to have right-sided hemiaplasia aphasia right- sided facial droop and reportedly extinction of the right side as well. Found to have a left MCA M1 branch occlusion. Last known normal was 2030. TNK was administered at 2117. On arrival patient is significantly aphasic and not able to participate. [facility] reports improvement of initial symptoms. Neurology aware of patient present at bedside. Nursing Notes were reviewed. Limitations to history: Outside historians: REVIEW OF SYSTEMS Review of Systems Pertinent positives and negatives as per HPI. PAST MEDICAL HISTORY Medical History[1] SURGICAL HISTORY Surgical History[2] CURRENT MEDICATIONS Previous Medications No medications on file ALLERGIES Patient has no allergy information on record. FAMILY HISTORY Family History[3] SOCIAL HISTORY Social History[4] SCREENINGS Rafa Coma Scale Best Eye Response: Spontaneous Best Verbal Response: Oriented Best Motor Response: Follows commands Moffett Coma Scale Score: 15 NIH Stroke Scale 1A. Level of Consciousness: Alert, Keenly Responsive 1B. Ask Month and Age: Both Questions Right 1C. Blink Eyes & Squeeze Hands: Performs Both Tasks 2. Best Gaze: Partial Gaze Palsy 3. Visual: No Visual Loss 4. Facial Palsy: Normal Symmetrical Movements 5A. Motor - Left Arm: No Drift 5B. Motor - Right Arm: No Drift 6A. Motor - Left Leg: No Drift 6B. Motor - Right Leg: No Effort Against [place] 7. Limb Ataxia: Absent 8. Sensory Loss: Normal 9. Best Language: Mute, Global Aphasia 10. Dysarthria: Normal 11. Extinction and Inattention: No Abnormality NIH Stroke Scale: 7 PHYSICAL EXAM ED Triage Vitals Temp Pulse Resp BP -- -- -- -- SpO2 Temp src Heart Rate Source Patient Position -- -- -- -- BP Location FiO2 (%) -- -- Physical Exam Vitals and nursing note reviewed. Constitutional: General: He is awake. He is not in acute distress. Comments: Right-sided facial droop. Appears to have right-sided weakness as well. Patient is significantly aphasic. Neurological: Mental Status: He is alert. Cranial Nerves: Facial asymmetry present. Motor: Weakness present. Comments: Aphasia. Right-sided upper extremity and lower extremity weakness comparative to the left. Psychiatric: Behavior: Behavior is cooperative. DIAGNOSTIC RESULTS RADIOLOGY (Per Emergency Physician): Interpretation per the Radiologist below, if available at the time of this note: IR angiogram cerebral with possible intervention (Results Pending) LABS: Labs Reviewed BMPI ISTAT (LAB ONLY) - Abnormal Result Value Sodium, WB 139 POTASSIUM,WB 4.6 CHLORIDE,WB 105 CO2 WHOLE BLOOD 23 ANION GAP 11.00 GLUCOSE, WB 189 (*) UREA NITROGEN, WB 34 (*) eGFR, Whole Blood 47.4 CREATININE, WB 1.5 (*) CALCIUM,IONIZED 4.90 Narrative: Performed by: [facility], [address] [place], [place] [address]ron [place] [address] CLIA ID: [id number] All other labs were within normal range or not returned as of this dictation. EMERGENCY DEPARTMENT COURSE and DIFFERENTIAL DIAGNOSIS/MDM: Vitals: There were no vitals filed for this visit. Neurology team at bedside. Patient without active bleeding after TNK administration on exam. Patient with improvement of previously reported neurological deficits. NIH conducted by neurology team scoring at a 7. PROTECTION ANALYST recommends receiving angiogram and evaluation for thrombectomy on floors. Patient urgently taken for imaging. Glucose 189. Diagnoses as of 04/22/25 0110 Stroke due to embolism of left middle cerebral artery (HCC) External records reviewed: Diagnostics interpreted by me: Discussions with other clinicians: Chronic conditions impacting care: Social determinants of health affecting care: ED Medications managed: Medications - No data to display Prescription drugs considered: PROCEDURES: Unless otherwise noted below, none Procedures FINAL IMPRESSION No diagnosis found. DISPOSITION PATIENT REFERRED TO: No follow-up provider specified. DISCHARGE MEDICATIONS: New Prescriptions No medications on file (Comment: Please note this report has been produced using speech recognition software and may contain errors related to that system including errors in grammar, punctuation, and spelling, as well as words and phrases that may be inappropriate. If there are any questions or concerns please feel freeto contact the dictating provider for clarification.) Chacho Esparza DO (electronically signed) Emergency Medicine Provider Chacho Esparza DO Resident 04/21/25 5623 [1] No past medical history on file. [2] No past surgical history on file. [3] No family history on file. [4] Social History Socioeconomic History Marital status: Cosigned by Radha Cordova DO at 04/22/2025 2:54 AM EDT documented in this [facility]06-27-2025 Note* Exam Date Time Procedure Performing Provider Status 04/21/25 10:22 PM XR Chest 1 View ANTHONY JONO DO; Auth (Verified) [id number] ORIGINAL EXAMINATION: ONE XRAY VIEW OF THE CHEST04/21/2025 10:22 pm CHEST ONE VIEW AP/PA COMPARISON: None HISTORY: ORDERING SYSTEM PROVIDED HISTORY: Reason for Exam: chest pain/[id number]^ FINDINGS: Lines/Tubes: None Lungs: No evidence of a focal consolidation, pneumothorax, or pleural effusion. Heart/Mediastinum: Status post median sternotomy. Stable cardiomediastinal silhouette and normal size. Bones/Soft Tissues: No acute fractures are identified. IMPRESSION: No evidence of an acute cardiopulmonary process. Interpreted by: Jono Murphy Preliminary Report By: Jono Murphy Electronically signed By Jono Murphy Dictated Date: 04/21/2025 11:21:51 PM Prelim Date: 04/21/2025 11:22:43 PM Sign Date: 04/21/2025 11:22:43 PM Ordering Provider: BERNICE SOTOMAYOR Interpreted by: Jono Murphy Preliminary Report By: Jono Murphy Electronically signed By Jono Murphy Dictated Date: 04/21/2025 11:21:51 PM Prelim Date: 04/21/2025 11:22:43 PM Sign Date: 04/21/2025 11:22:43 PM Ordering Provider: BERNICE SOTOMAYOR [facility]06-27-2025 Neurology Consult note Date of Service 21 April 2025 Patient Telehealth Consent Pt unable to give consent due to global aphasia. No family accompanies patient. Chief Complaint right hemiparesis and aphasia, LKW 20:30 Pt location [facility] ED Provider offsite [facility] Called 21:08, pt on the way to CT for CTangio Case discussed with Dr Lozano. TNK given 21:17 On video at 21:38 upon pt return to his room History of Present Illness Pt presents to ED with profound right hemiparesis and aphasia. LKW 20:30. Pt is unable to provide additional history Pt stroke risk factors include HTN, HLD, diabetes, paroxysmal atrial fib ( not on anticoagulant), OSIEL. No family is present with the patient. He has no history of recent procedures, surgeries or bleeding episodes He is appropriate for TNK Physical Exam Vitals and Measurements T: 36.1 C (Axillary) HR: 69 RR: 17 BP: 179/89 SpO2: 94% WT: 76 kg Weight Dosing Weight: 76 kg (04/21/25) 20 minutes AFTER TNK awake and moving the left side left gaze preference he will fix and follow to the midline right facial droop will not follow verbal commands or answer questions, no spont speech no movement in the RIGHT arm or leg moving the left arm and leg normally NIH Stroke Scale NIH 18 Thrombolytic Contraindications none Lab Results 04/21 21:11 WBC: 8.8 Hgb: 12.8 L Hct: 38.1 L Platelet: 223 Neutrophil %: 65.6 Protime: 11.0 PT International Ratio: 1.0 Glucose Level: 196 H Sodium Level: 141 Potassium Level: 4.5 BUN: 39 H Creatinine Lvl (s): 1.47 H Imaging Results and Diagnostics (04/21/2025 21:[address] Head or Brain w/o Contrast) IMPRESSION: No acute intracranial abnormality identified. [1] EKG sinus with RBBB Assessment and Plan Large LEFT MCA distribution stroke based on the clinical examination. The head CT is unremarkable. Pt is an appropriate candidate for the administration of TNK and received the medication. Unfortunately, there has been no obvious clinical improvement 20 minutes after the administration of the drug High Level Medical Decision-making high level of disability would be predicted with this event Likely to represent occlusion in the left MCA distribution and his paroxysmal afib would be his largest risk factor for this. CTangio is pending to r/o LVO LVO would require transfer to a facility with interventional radiology capability Pt is at high risk for decline and even based on presumed stroke size. He should be admitted to an ICU for close and monitoring Recommendations 1) admit to ICU 2) transfer if LVO present of angio, still pending 3) permissive HTN 4) judicious use of only isotonic fluids 5) telemetry and pulse oximetry 6) repeat head CT 24 hours 7) lipid profile, A1c 8) coverage with sliding scale insulin for good glucose control and better neuronal salvage in the pnumbra. 9) MRI if tolerated 10) at 24 hours post TNK, pt should be started on eliquis for paroxysmal afib post stroke. 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 HYPERCHOLESTEROLEMIA HYPERCHOLESTEROLEMIA Kidney stone Leukocytosis Osteopenia PAROXYSMAL ATRIAL FIBRILLATION Skin cancer Sleep apnea Subclinical hyperthyroidism Subclinical hyperthyroidism THROMBOCYTOPENIA, UNSPECIFIED Historical NON-ST ELEVATION (NSTEMI) MYOCARDIAL INFARCTION PROSTATE CANCER Procedure/Surgical History Echocardiogram: 03/27/23 Cardiac catheterization: 12/05/22 Echocardiogram: 10/27/18 CABG - Coronary artery bypass graft: 04/15/18 Imaging of carotid arteries by duplex scan with spectrum analysis: 04/13/18 Cardiac catheterization: 04/12/18 Basal cell carcinoma Prostate Kidney stone Medications Inpatient hydrALAZINE, 10 mg= 0.5 mL, IV Push, Once niCARdipine for IV 20 mg [5 mg/hr] + NS PMX titrate 200 mL Home aspirin, 81 mg, Oral, qDay atorvastatin 80 mg oral tablet, 80 mg= 1 tab(s), Oral, Daily, 3 refills Blood Glucose Test Strips, See Instructions, 5 refills carvedilol 12.5 mg oral tablet, 12.5 mg= 1 tab(s), Oral, BID, 3 refills doxazosin 2 mg oral tablet, 2 mg= 1 tab(s), Oral, Daily, 3 refills glipiZIDE 2.5 mg oral tablet, extended release, 2.5 mg= 1 tab(s), Oral, qDayM, 3 refills ibuprofen 200 mg oral tablet, 400 mg= 2 tab(s), Oral, Daily, PRN isosorbide mononitrate 30 mg oral tablet, extended release, 30 mg= 1 tab(s), Oral, qAM, 3 refills Jardiance 25 mg oral tablet, 25 mg= 1 tab(s), Oral, qAM, 3 refills losartan 100 mg oral tablet, 100 mg= 1 tab(s), Oral, qDay, 3 refills magnesium oxide 400 mg oral tablet, Oral, qDay melatonin 5 mg oral tablet, 10 mg= 2 tab(s), Oral, qHS, PRN metFORMIN 850 mg oral tablet (IR), See Instructions, 3 refills Multivitamin, 1 tab(s), Oral, Daily nitroglycerin 0.4 mg sublingual tablet, 0.4 mg= 1 tab(s), Sublingual, q5min, PRN omeprazole 20 mg oral delayed release capsule, 20 mg= 1 cap(s), Oral, qDay Repatha SureClick 140 mg/mL subcutaneous solution, 140 mg, Subcutaneous, q2wk, 11 refills Zetia 10 mg oral tablet, 10 mg= 1 tab(s), Oral, qDay, 3 refills Allergies Mevacor Unknown Monopril Unknown Zithromax Z-Mohsen Rash Social History Smoking Status - 04/12/2018 Former smoker Alcohol - Low Risk, 04/12/2018 Frequency: 1-2 times per week., 04/12/2018 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 Cancer: Father, Sister and Brother. Coronary artery disease: Mother, Father and Brother. Diabetes: Mother and Brother. Gout: Brother. HTN - Hypertension: Mother and Sister. Heart attack: Mother, Father and Brother. Heart disease: Mother, Father and Brother. Hyperlipidemia: Mother and Brother. Osteoarthritis: Mother. Stroke: Mother and Father. Total Time of Visit 45 minutes [1] CT Head or Brain w/o Contrast; JONO MURPHY DO 04/21/2025 21:04 EDT Digitally Signed by CHRISTEN BLANCO MD on 04/21/2025 10:18 PM [facility]06-27-2025 Note* Exam Date Time Procedure Performing Provider Status 04/21/25 10:[address] Angiography Neck w/ Contrast JONO MURPHY DO; Auth (Verified) [id number] ORIGINAL EXAMINATION: CTA OF THE NECK 04/21/2025 TECHNIQUE: CTA of the neck was performed with the administration of intravenous contrast. Multiplanar reformatted images are provided for review. MIP images are provided for review. Stenosis of the internal carotid arteries measured using NASCET criteria. Automated exposure control, iterative reconstruction, and/or weight based adjustment of the mA/kV was utilized to reduce the radiation dose to as low as reasonably achievable. COMPARISON: CT head same day. HISTORY: ORDERING SYSTEM PROVIDED HISTORY: Reason for Exam: Stroke Emergency FINDINGS: BONES/SOFT TISSUES: No acute osseous or soft tissue abnormality. Multilevel degenerative changes of the visualized spine. AORTIC ARCH/ARCH VESSELS: The aortic arch is normal in caliber and atherosclerotic. No hemodynamically significant stenosis is noted the origins of the great vessels. VERTEBRAL ARTERIES: The bilateral vertebral arteries are patent without evidence of hemodynamically significant stenosis or other acute abnormality. CAROTID ARTERIES: The visualized bilateral internal carotid arteries are patent without evidence of hemodynamically significant stenosis or other acute abnormality. Bilateral carotid bulb atherosclerosis. ADDITIONAL COMMENTS: No acute abnormality visualized lungs. Mucosal thickening in the bilateral maxillary sinuses. IMPRESSION: No significant vessel stenosis is identified. I have reviewed the resident's preliminary report and agree with findings and impression. Interpreted by: Jono Murphy Preliminary Report By: Chuy Pizano Electronically signed By Jono Murphy Dictated Date: 04/21/2025 10:19:51 PM Prelim Date: 04/21/2025 10:27:04 PM Sign Date: 04/21/2025 10:30:07 PM Ordering Provider: BERNICE SOTMOAYOR Interpreted by: Jono Murphy Preliminary Report By: Chuy Pizano Electronically signed By Jono Murphy Dictated Date: 04/21/2025 10:19:51 PM Prelim Date: 04/21/2025 10:27:04 PM Sign Date: 04/21/2025 10:30:07 PM Ordering Provider: BERNICE SOTOMAYOR [facility]06-27-2025 Note* Exam Date Time Procedure Performing Provider Status 04/21/25 10:[address] Angiography Head w/ Contrast YADIEL HENDERSON MD; Modified [id number] ADDENDUM ADDENDUM: Findings were discussed with Dr. Bernice Sotomayor at 9:31 p.m., 04/21/2025 EST. Interpreted by: Yadiel Leonard Preliminary Report By: Yadiel Leonard Electronically signed By Yadiel Leonard Dictated Date: 04/22/2025 12:43:40 AM Prelim Date: 04/22/2025 12:44:56 AM Sign Date: 04/22/2025 12:44:56 AM Ordering Provider: BERNICE SOTOMAYOR Interpreted by: Yadiel Leonard Preliminary Report By: Yadiel Leonard Electronically signed By Yadiel Leonard Dictated Date: 04/22/2025 12:43:40 AM Prelim Date: 04/22/2025 12:44:56 AM Sign Date: 04/22/2025 12:44:56 AM Ordering Provider: BERNICE SOTOMAYOR ORIGINAL EXAMINATION: CTA OF THE HEAD WITH CONTRAST 04/21/2025 10:02 pm: TECHNIQUE: CTA of the head/brain was performed with the administration of intravenous contrast. Multiplanar reformatted images are provided for review. MIP images are provided for review. Automated exposure control, iterative reconstruction, and/or weight based adjustment of the mA/kV was utilized to reduce the radiation dose to as low as reasonably achievable. COMPARISON: None. HISTORY: ORDERING SYSTEM PROVIDED HISTORY: Reason for Exam: Stroke Emergency FINDINGS: There are mild-moderate calcified plaques of the bilateral internal carotid cavernous segments with mild-moderate stenoses. The right middle cerebral artery is patent. 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 There is decreased flow noted of left MCA M3 cortical segments. The right anterior cerebral artery is patent. The left anterior cerebral artery is patent. The bilateral distal vertebral arteries are patent. The basilar artery is patent. The right posterior cerebral artery is patent. The left posterior cerebral artery is patent. There is no aneurysm. OTHER: No dural venous sinus thrombosis on this non-dedicated study. BRAIN: There is mild edema of left basal ganglia and left insula, extending to mid left frontal lobe compatible with early infarct. IMPRESSION: 1. 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 2. Mild edema of left basal ganglia and left insula, extending to mid left frontal lobe compatible with early infarct. 3. Mild-moderate calcified plaques of the bilateral internal carotid cavernous segments with mild-moderate stenoses. Interpreted by: Yadiel Leonard Preliminary Report By: Yadiel Leonard Electronically signed By Yadiel Leonard Dictated Date: 04/21/2025 10:10:07 PM Prelim Date: 04/21/2025 10:21:48 PM Sign Date: 04/21/2025 10:21:48 PM Ordering Provider: BERNICE SOTOMAYOR Interpreted by: Yadiel Leonard Preliminary Report By: Yadiel Leonard Electronically signed By Yadiel Leonard Dictated Date: 04/21/2025 10:10:07 PM Prelim Date: 04/21/2025 10:21:48 PM Sign Date: 04/21/2025 10:21:48 PM Ordering Provider: BERNICE SOTOMAYOR [facility]06-27-2025 Note* Exam Date Time Procedure Performing Provider Status 04/21/25 9:23 PM EKG [ED AOH] - CV BERNICE SOTOMAYOR DO; [facility] (Verified) ECG Final Report Sinus rhythm Right bundle branch block EKG interpretation is noted and agreed to in [place]. The interpretation of this patient's EKG contributed directly to the care and management of this patient. Electronic Signature: BERNICE SOTOMAYOR DO 04/21/2025 22:13:30 [facility]06-27-2025 Note* Exam Date Time Procedure Performing Provider Status 04/21/25 9:[address] Head or Brain w/o Contrast Jesse MURPHY DO; Auth (Verified) [id number] ORIGINAL EXAMINATION: CT OF THE HEAD WITHOUT CONTRAST 04/21/2025 9:04 pm TECHNIQUE: CT of the head was performed without the administration of intravenous contrast. Automated exposure control, iterative reconstruction, and/or weight based adjustment of the mA/kV was utilized to reduce the radiation dose to as low as reasonably achievable. COMPARISON: None. HISTORY: ORDERING SYSTEM PROVIDED HISTORY: Reason for Exam: Stroke alert change in mental status/weakness/aphasia FINDINGS: There is no acute intracranial hemorrhage, mass effect, or abnormal extra-axial fluid collection. There is no CT evidence of acute infarct. The density in the larger dural venous sinuses is grossly normal. No hydrocephalus. Mild parenchymal atrophy with proportional ventriculomegaly and sulcal widening. Scattered white matter hypodensities are present which are nonspecific but likely represent chronic microvascular angiopathy. Atherosclerosis of bilateral cavernous carotid arteries. No acute bony findings. Grossly clear paranasal sinuses and mastoid air cells. IMPRESSION: No acute intracranial abnormality identified. Results were called by Chuy Pizano to Bernice Sotomayor at 9:13 p.m. Preliminary Report was Dictated by a Resident ATTENDING ADDENDUM: HYPERDENSE LEFT MCA SIGN, WHICH IS A NONCONTRAST SIGNS SUSPICIOUS FOR THROMBUS. OTHERWISE, AGREE WITH ABOVE THAT THERE IS NO CURRENT CT EVIDENCE OF ACUTE INFARCT, ALTHOUGH CT IS INSENSITIVE FOR EARLY CHANGES OF ISCHEMIA. ADDENDUM DISCUSSED with BERNICE SOTOMAYOR at 9:46 pm on 04/21/[address] Murphy Interpreted by: Jono Murphy Preliminary Report By: Chuy Pizano Electronically signed By Jono Murphy Dictated Date: 04/21/2025 9:10:58 PM Prelim Date: 04/21/2025 9:20:17 PM Sign Date: 04/21/2025 9:47:08 PM Ordering Provider: BERNICE SOTOMAYOR Interpreted by: Jono Murphy Preliminary Report By: Chuy Pizano Electronically signed By Jono Murphy Dictated Date: 04/21/2025 9:10:58 PM Prelim Date: 04/21/2025 9:20:17 PM Sign Date: 04/21/2025 9:47:08 PM Ordering Provider: EBRNICE SOTOMAYOR [facility]05-20-2025 Note* Exam Date Time Procedure Performing Provider Status 03/14/25 11:05 AM BD Bone Density DEXA Axial Skeleton JOSHUA MACKEY MD; Auth (Verified) [id number] ORIGINAL EXAMINATION: BONE DENSITOMETRY03/14/2025 11:06 am TECHNIQUE: Dual energy bone densitometry lumbar spine and left hip. COMPARISON: 03/27/2023 HISTORY: Reason for Exam: screening Osteoporosis screening. FINDINGS: T Score Left Femoral Neck: -0.3 Left Femoral Neck: 0.887 (g/cm2) T Score Left Hip: -0.6 Left Hip: 0.938 (g/cm2) T Score Lumbar Spine: -0.8 Lumbar Spine: 1.000 (g/cm2) BMD Change from previous Hip: +1.4% BMD Change from previous Lumbar Spine: +3.4%, significant FRAX score: Not calculated. The BHOF f/k/a NOF recommends that FDA-approved medical therapies be considered in post-menopausal women and men age >/= 50 years with a: * Hip or vertebral fracture, or * T-score of /= 20% for major osteoporotic fractures or * >/= 3% for hip fractures All treatment decisions require clinical judgement and consideration of individual patient factors, including patient preferences, comorbidities, previous drug use, risk factors not captured in the FRAX registered model (e.g., frailty, falls, vitamin D deficiency, increased bone turnover, interval significant decline in bone density) and possible under- or over-estimation of fracture risk by FRAX. IMPRESSION: Normal bone mineral density. Interpreted by: Joshua Mackey MD Preliminary Report By: Joshua Mackey MD Electronically signed By Joshua Mackey MD Dictated Date: 03/14/2025 11:43:54 AM Prelim Date: 03/14/2025 11:45:12 AM Sign Date: 03/14/2025 11:45:12 AM Ordering Provider: BRE FLORES [facility]05-22-2024 Note* Exam Date Time Procedure Performing Provider Status 03/16/24 1:32 PM Echocardiogram, Adult - CV Auth (Verified) [facility] 06-02-2023 Note ORIGINAL EXAMINATION: BONE DENSITOMETRY 03/27/2023 10:02 am TECHNIQUE: A bone density dual x-ray absorptiometry (DEXA) scan was performed of the lumbar spine and left hip. COMPARISON: Bone density DEXA 04/02/2021. HISTORY: ORDERING SYSTEM PROVIDED HISTORY: Reason for Exam: Osteoporosis screening FINDINGS: BMD (g/cm2) Lumbar Spine L1-L4: 0.967. T Score Lumbar Spine L1-L4: -1.1 BMD (g/cm2) Left Femoral Neck: 0.869. T Score Left Femoral Neck: -0.4 BMD (g/cm2) Left Hip: 0.925. T Score Left Hip: -0.7 BMD Change from previous Hip: 2.4% BMD Change from previous Lumbar spine: 1.0% FRAX: 10 year fracture risk assessment Major osteoporotic fracture: 5.0% Hip fracture: 1.0% IMPRESSION: Osteopenia by WHO criteria. *By the World Health Organization criteria: (Comparing with young normal sex matched population) - Normal: T-score at or above -1 SD (standard deviation) - Osteopenia: T-score between -1 and -2.5 SD - Osteoporosis: T-score at or below -2.5 SD I have personally reviewed the images of this examination and agree with the resident's findings and interpretation. Interpreted by: Darren Epperson DO Preliminary Report By: Sai Riddle Electronically signed By Darren Epperson DO Dictated Date: 03/27/2023 11:03:53 AM Prelim Date: 03/27/2023 11:54:01 AM Sign Date: 03/27/2023 11:54:01 AM Ordering Provider: [facility]06-02-2023 Note ORIGINAL EXAMINATION: BONE DENSITOMETRY 03/27/2023 10:02 am TECHNIQUE: A bone density dual x-ray absorptiometry (DEXA) scan was performed of the lumbar spine and left hip. COMPARISON: Bone density DEXA 04/02/2021. HISTORY: ORDERING SYSTEM PROVIDED HISTORY: Reason for Exam: Osteoporosis screening FINDINGS: BMD (g/cm2) Lumbar Spine L1-L4: 0.967. T Score Lumbar Spine L1-L4: -1.1 BMD (g/cm2) Left Femoral Neck: 0.869. T Score Left Femoral Neck: -0.4 BMD (g/cm2) Left Hip: 0.925. T Score Left Hip: -0.7 BMD Change from previous Hip: 2.4% BMD Change from previous Lumbar spine: 1.0% FRAX: 10 year fracture risk assessment Major osteoporotic fracture: 5.0% Hip fracture: 1.0% IMPRESSION: Osteopenia by WHO criteria. *By the World Health Organization criteria: (Comparing with young normal sex matched population) - Normal: T-score at or above -1 SD (standard deviation) - Osteopenia: T-score between -1 and -2.5 SD - Osteoporosis: T-score at or below -2.5 SD I have personally reviewed the images of this examination and agree with the resident's findings and interpretation. Interpreted by: Darren Epperson DO Preliminary Report By: Sai Riddle Electronically signed By Darren Epperson DO Dictated Date: 03/27/2023 11:03:53 AM Prelim Date: 03/27/2023 11:54:01 AM Sign Date: 03/27/2023 11:54:01 AM [facility] Appointment Date:02/25/2022 09:00:00 AM Scheduled Provider:BRE FLORES DO Location:[facility] Appointment Type:PC OV [facility] Evaluation + Plan note Future Appointments Appointment Date:10/14/2022 09:00:00 AM Scheduled Provider:BRE FLORES DO Location:[facility] Appointment Type:PC OV Follow Up [facility] Evaluation + Plan note Future Appointments Appointment Date:10/14/2022 09:00:00 AM Scheduled Provider:BRE FLORES DO Location:[facility] Appointment Type:PC OV Follow Up Appointment Date:10/14/2022 02:00:00 PM Scheduled Provider:MARYAM KAMINSKI Location:[facility] Appointment Type:CV OV [facility] Evaluation + Plan note Future Appointments Appointment Date:03/27/2023 10:00:00 AM Scheduled Provider: Location:[facility] Appointment Type:[facility] Echo Future Scheduled Tests Laboratory* Magnesium Level 04/14/23 * Thyroid Stimulating Hormone 04/14/23 * A1C Hemoglobin 04/14/23 * Complete Blood Count 04/14/23 * Lipid Profile 04/14/23 * Vitamin D Level 04/14/23 * Complete Metabolic Panel 04/14/23 Radiology* BD Bone Density DEXA Axial Skeleton 03/20/23 [facility] Evaluation + Plan note Future Scheduled Tests Laboratory* Magnesium Level 04/14/23 * Thyroid Stimulating Hormone 04/14/23 * A1C Hemoglobin 04/14/23 * Complete Blood Count 04/14/23 * Lipid Profile 04/14/23 * Vitamin D Level 04/14/23 * Complete Metabolic Panel 04/14/23 [facility] Evaluation + Plan note Future Appointments Appointment Date:05/28/2023 02:45:00 PM Scheduled Provider:HERMINIA IBARRA MD Location:[facility] Appointment Type:[facility] [employer] Appointment Date:06/03/2023 01:00:00 PM Scheduled Provider: Location:[facility] Appointment Type:CV OV Appointment Date:07/03/2023 09:00:00 AM Scheduled Provider:BRE FLORES DO Location:[facility] Appointment Type:PC OV Future Scheduled Tests Laboratory* Magnesium Level 04/14/23 * Thyroid Stimulating Hormone 04/14/23 * A1C Hemoglobin 04/14/23 * Complete Blood Count 04/14/23 * Lipid Profile 04/14/23 * Vitamin D Level 04/14/23 * Complete Metabolic Panel 04/14/23 [facility] Evaluation + Plan note Future Appointments Appointment Date:06/16/2023 02:00:00 PM Scheduled Provider: Location:[facility] Appointment Type:CV OV Appointment Date:07/03/2023 09:00:00 AM Scheduled Provider:BRE FLORES DO Location:[facility] Appointment Type:PC OV Appointment Date:07/16/2023 03:15:00 PM Scheduled Provider:HERMINIA IBARRA MD Location:[facility] Appointment Type:ENDO OV Future Scheduled Tests Laboratory* Magnesium Level 04/14/23 * Thyroid Stimulating Hormone 07/16/23 * Thyroid Stimulating Hormone 04/14/23 * Free T4 07/16/23 * A1C Hemoglobin 04/14/23 * Complete Blood Count 07/16/23 * Complete Blood Count 04/14/23 * Free T3 07/16/23 * Lipid Profile 04/14/23 * Vitamin D Level 04/14/23 * Complete Metabolic Panel 07/16/23 * Complete Metabolic Panel 04/14/23 [facility] Evaluation + Plan note Future Appointments Appointment Date:07/16/2023 03:15:00 PM Scheduled Provider:HERMINIA IBARRA MD Location:[facility] Appointment Type:ENDO OV Appointment Date:10/02/2023 09:30:00 AM Scheduled Provider:BRE FLORES DO Location:[facility] Appointment Type:PC OV Future Scheduled Tests Laboratory* Magnesium Level 04/14/23 * Thyroid Stimulating Hormone 04/14/23 * A1C Hemoglobin 04/14/23 * Complete Blood Count 04/14/23 * Lipid Profile 04/14/23 * Vitamin D Level 04/14/23 * Complete Metabolic Panel 04/14/23 [facility] Evaluation + Plan note Future Appointments Appointment Date:10/02/2023 09:30:00 AM Scheduled Provider:BRE FLORES DO Location:[facility] Appointment Type:PC OV Appointment Date:03/22/2024 01:30:00 PM Scheduled Provider:HERMINIA IBARRA MD Location:[facility] Appointment Type:ENDO OV Future Scheduled Tests Laboratory* Thyroid Stimulating Hormone 10/02/23 * Thyroid Stimulating Hormone 01/14/24 * Thyroid Stimulating Hormone 09/10/23 * Free T4 01/14/24 * Free T4 09/10/23 * Free T3 01/14/24 * Free T3 09/10/23 * Complete Metabolic Panel 01/14/24 * Complete Metabolic Panel 09/10/23 [facility] Evaluation + Plan note Future Appointments Appointment Date:03/04/2024 09:00:00 AM Scheduled Provider:BRE FLORES DO Location:[facility] Appointment Type:PC OV Appointment Date:03/22/2024 01:30:00 PM Scheduled Provider:HERMINIA IBARRA MD Location:[facility] Appointment Type:ENDO OV Future Scheduled Tests Laboratory* A1C Hemoglobin 02/29/24 * Lipid Profile 02/29/24 [facility] Evaluation + Plan note Future Appointments Appointment Date:03/22/2024 01:30:00 PM Scheduled Provider:HERMINIA IBARRA MD Location:[facility] Appointment Type:ENDO OV Appointment Date:10/11/2024 09:00:00 AM Scheduled Provider:BRE FLORES DO Location:[facility] Appointment Type:PC OV Appointment Date:03/07/2025 09:30:00 AM Scheduled Provider:BRE FLORES DO Location:[facility] Appointment Type: Wellness Medicare Future Scheduled Tests Laboratory* Thyroid Stimulating Hormone 09/04/24 * A1C Hemoglobin 02/29/24 * A1C Hemoglobin 09/04/24 * Complete Blood Count 09/04/24 * Lipid Profile 02/29/24 * Vitamin D Level 09/04/24 * Complete Metabolic Panel 09/04/24 [facility] Evaluation + Plan note Future Appointments Appointment Date:10/11/2024 09:00:00 AM Scheduled Provider:BRE FLORES DO Location:[facility] Appointment Type:PC OV Appointment Date:03/07/2025 09:30:00 AM Scheduled Provider:BRE FLORES DO Location:[facility] Appointment Type:PC Wellness Medicare Future Scheduled Tests Laboratory* A1C Hemoglobin 02/29/24 * Lipid Profile 02/29/24 [facility] Evaluation + Plan note Future Appointments Appointment Date:03/07/2025 09:30:00 AM Scheduled Provider:BRE FLORES DO Location:[facility] Appointment Type:PC Wellness Medicare [facility] Evaluation + Plan note Future Appointments Appointment Date:10/10/2025 09:30:00 AM Scheduled Provider:BRE FLORES DO Location:[facility] Appointment Type: OV Future Scheduled Tests Laboratory* Thyroid Stimulating Hormone 09/07/25 * Free T4 09/07/25 * A1C Hemoglobin 09/07/25 * Complete Blood Count 09/07/25 * Free T3 09/07/25 * Lipid Profile 09/07/25 * PTH, Intact 03/07/25 * Vitamin D Level 09/07/25 * Complete Metabolic Panel 09/07/25 [facility] Evaluation + Plan note Future Appointments Appointment Date:10/10/2025 09:30:00 AM Scheduled Provider:BRE FLORES DO Location:[facility] Appointment Type: OV Future Scheduled Tests Laboratory* Thyroid Stimulating Hormone 09/07/25 * Free T4 09/07/25 * A1C Hemoglobin 09/07/25 * Complete Blood Count 09/07/25 * Free T3 09/07/25 * Lipid Profile 09/07/25 * Vitamin D Level 09/07/25 * Complete Metabolic Panel 09/07/25 [facility] Evaluation + Plan note Future Appointments Appointment Date:08/11/2025 10:00:00 AM Scheduled Provider:TIM DUMONT Location:[facility] Appointment Type:CV OV Appointment Date:10/10/2025 09:30:00 AM Scheduled Provider:BRE FLORES DO Location:[facility] Appointment Type:PC OV Diagnostic Tests Pending * Apolipoprotein B 06/20/25 Future Scheduled Tests Laboratory* Thyroid Stimulating Hormone 09/07/25 * Free T4 09/07/25 * A1C Hemoglobin 09/07/25 * Complete Blood Count 09/07/25 * Free T3 09/07/25 * Lipid Profile 09/07/25 * Vitamin D Level 09/07/25 * Complete Metabolic Panel 09/07/25 [facility] Evaluation + Plan note Future Appointments Appointment Date:08/11/2025 10:00:00 AM Scheduled Provider:TIM DUMONT Location:[facility] Appointment Type:CV OV Appointment Date:10/10/2025 09:30:00 AM Scheduled Provider:BRE FLORES DO Location:[facility] Appointment Type:PC OV Future Scheduled Tests Laboratory* Thyroid Stimulating Hormone 09/07/25 * Free T4 09/07/25 * A1C Hemoglobin 09/07/25 * Complete Blood Count 09/07/25 * Free T3 09/07/25 * Lipid Profile 09/07/25 * Vitamin D Level 09/07/25 * Complete Metabolic Panel 09/07/25 [facility] Evkframlia noteNo assessment information available [facility] Work Phone: Evaluation note* Diagnosis Acute ischemic left MCA stroke (HCC)- Primary Unspecified cerebral artery occlusion with cerebral infarction Acute ischemic left MCA stroke (HCC) Unspecified cerebral artery occlusion with cerebral infarction Stroke due to embolism of left middle cerebral artery (HCC) [facility] Diagnosis NSTEMI (non-ST elevated myocardial infarction) (HCC)- Primary Acute myocardial infarction, subendocardial infarction, episode of care unspecified NSTEMI (non-ST elevated myocardial infarction) (HCC) Acute myocardial infarction, subendocardial infarction, episode of care unspecified [facility] Diagnosis TIA (transient ischemic attack)- Primary Unspecified transient cerebral ischemia Acute ischemic left MCA stroke (HCC) Unspecified cerebral artery occlusion with cerebral infarction documented in this encounter [facility] note* Diagnosis Ischemic stroke (HCC)- Primary OSIEL (obstructive sleep apnea) Obstructive sleep apnea (adult) (pediatric) documented in this encounter [facility] note* Diagnosis Onset Date Resolution Status Admit Date Right inguinal hernia acute Sep 2024 1:03pm [facility] Work Phone: Hospital course Narrative No data available for this section [facility] Hospital Discharge instructions No data available for this section [facility] Progress note No data available for this section [facility] Reason for referral (narrative)No reason for referral [facility] Work Phone: Advance Directives No Advanced Directives Records Found Advance Directive Response Recorded Date/ Time Living Will Yes December 17 018 12:21pm Power of Swing Manager Yes December 17, 2017 12:21pm Advance Directive Response Recorded Date/ Time Living Will Yes December 17 018 11:21am Power of Swing Manager Yes December 17, 2017 11:21am Date Activated Date Inactivated Comments 04/22/2025 1:36 AM 05/01/2025 3:53 PM Documents on File Type Date 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 Advance Directives and Livin g Will 05/02/2025 10:25 AM Date Activated Date Inactivated Comments 05/11/2025 7:08 PM 05/12/2025 6:59 PM Date Activated Date Inactivated Comments 04/22/2025 1:36 AM 05/01/2025 3:53 PM Documents on File Type Date Recorded 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 Bre Flores DO Family Provider Active Dr. Bre Flores DO Primary Care Provider Activ e Team Status: Inactive Member Role Status Dates Dr. Bre Flores , DO Primary Care Provider Activ e Dr. Randy Ragland MD Attending Provider, Referr ing Provider Active Team Status: Inactive Member Role Status Dates Dr. Bre Flores DO Primary Care Provider Activ e Start: March 31, 2025 End: March 31, 2025 Dr. Randy Ragland MD Attending Provider Active Start: March 31, 2025 End: March 31, 2025 Dr. Randy Ragland MD Referring Provider Active Start: March 31, 2025 End: March 31, 2025 Guide Dog Instructor Relationship Specialty Start Date End Date Bre Flores DO [address] [place] [address] PCP - General Family Medicine 04/24/25 Guide Dog Instructor Relationship Specialty Start Date End Date Bre Flores DO [address] [place] [address] PCP - General Family Medicine 04/24/25 Guide Dog Instructor Relationship Specialty Start Date End Date Bre Flores DO [address] [place] [address] PCP - General Family Medicine 04/24/25 Guide Dog Instructor Relationship Specialty Start Date End Date Bre Flores DO [address] [place] [address] PCP - General Family Medicine 04/24/25 Guide Dog Instructor Relationship Specialty Start Date End Date Bre Flores DO [address] [place] [id number] PCP - General Family Medicine 04/24/25 Team Status: Active Member Role/Relationship Status Dates Dr. Bre Flores DO Family Provider Active Dr. Bre Flores DO Primary Care Provider Activ e Team Status: Inactive Member Role/Relationship Status Dates Dr. Bre Flores DO Primary Care Provider Activ e Start: March 31, 2025 End: March 31, 2025 Dr. Randy Ragland MD Attending Provider Active Start: March 31, 2025 End: March 31, 2025 Dr. Randy Ragland MD Referring Provider Active Start: March 31, 2025 End: March 31, 2025 Team Status: Inactive Member Role/Relationship Status Dates Dr. Bre Flores DO Primary Care Provider Activ e Start: June 27, 2025 End: June 27, 2025 Dr. Bre Flores DO Referring Provider Active Start: June 27, 2025 End: June 27, 2025 Dr. Jacob Mcallister MD Attending Provider Active Start: June 27, 2025 End: June 27, 2025 Goals (unrecognized section and content) Goals may be documented in a n alternate section Care Team (unrecognized sect ion and content) Care Team Personnel Name: BRE FLORES DO Position: P4 Physician - Primary Care Member Role: Primary Care Physician Address: Address: [address] [place] [address] [place] [address]- [place] Name: LEXII DUMONT MD Position: P4 Physician - Cardiology Member Role: Oncology Account Specialist Address: Address: [address] [facility] [address] [facility] [place] [address]- Care Team Related Persons Name: MARZENA BOOTH Address: Home [address] [place], [place] [id number] (unrecognized sect ion and content) No Status Records FoundNo Status Records FoundNo Status Records FoundNo Status Records FoundNo Status Records Found INFORMATION SOURCE (unrecogn ized section and content) DATE CREATED AUTHOR 03/18/2024 [facility] ([place]) DATE CREATED AUTHOR AUTHOR'S ORGANIZ ATION 04/23/2025 [facility] DATE CREATED AUTHOR AUTHOR'S ORGANIZ ATION 06/08/2025 [facility] DATE CREATED AUTHOR AUTHOR'S ORGANIZ ATION 06/22/2025 [facility] DATE CREATED AUTHOR AUTHOR'S ORGANIZ ATION 06/28/2025 [facility] Reason for Visit (unrecogniz ed section and content) Reason Comments Extremity Weakness Right hemiplegia/neg lect. From [facility] with L MCA occlusion lkw 2029. TNK 2116 Specialty Diagnoses / Procedures Referred By Georges pelletier Referred To Contact Diagnoses Acute ischemic left MCA stroke (HCC) LVO Procedures 0 Madan Alvares MD [address] [address] Phone: tel: fax: [facility] Surgical Trauma Neuro Intensive Care Unit STN ICU T2 [address] [place] [address] Phone: tel: Referral ID Status Reason Start Date Expiration Date Visits Re quested Visits Authorized [id number] 1 1 Reason Comments Facial Droop Pt has hx of right s lars weakness and right facial droop, hx stroke. Patient is coming from [facility] for worsening facial droop and drooling, [id number]. Specialty Diagnoses / Procedures Referred By Georges pelletier Referred To Contact Diagnoses NSTEMI (non-ST elevated myocardial infarction) (HCC) Facial droop Procedures I21.4 Brianna Barriag MD [address] [place] [address] Phone: tel: fax: [facility] Cardiac Post Intervention Progressive Care Unit CPI PCU 4W [address] [place] [address] Phone: tel: Referral ID Status Reason Start Date Expiration Date Visits Re quested Visits Authorized 1 1 Reason Comments Hospital Follow-up Stroke Reason Onset Date Comments Other 06/06/2025 Physical Therapy Frequency Scheduled Active and Recently Administ ered Medications (unrecognized section and content) Medication Order 04/29/2025 04/30/2025 05/01/2025 amLODIPine (Norvasc) tablet 10 mg 10 mg, Oral, Daily, First dose (after last modification) on Thu04/28/25 at 0900 0946 (Given - Provider: Irlanda Taveras, THI) 0821 (Given - Provider: Irlanda Taveras, THI) 0926 (Given - Provider: Roxy Bailey, THI) aspirin EC tablet 81 mg 81 mg, Oral, Daily, First dose on 04/23/25 at 0900, Do not crush, chew, or split. 0900 (Dose Auto Held - Provider: Rick Chow MD) 0832 (Unheld by provider - Provider: Rick Chow MD)0849 (Given - Provider: Irlanda Taveras RN)1113 (Held by provider - Provider: Rick Chow MD - Reason: Change in vital signs) 0915 (Unheld by provider - Provider: Rick Chow MD)0927 (Given - Provider: Roxy Bailey, THI) atorvastatin (Lipitor) tablet 80 mg 80 mg, Oral, Daily, First dose (after last modification) on Thu04/24/25 at 2100, If NO ALLERGIES or INTOLERANCE TO STATINS REPORTED BY PATIENT OR DOCUMENTED HOLD IF NPO 2010 (Given - Provider: Flower Marks, THI) 211 (Given - Provider: Palmira Markham, THI) carvedilol (Coreg) tablet 12.5 mg 12.5 mg, Oral, 2 times daily with meals, First dose (after last modification) on Thu04/29/25 at 0800 0946 (Given - Provider: Irlanda Taveras, THI)1727 (Given - Provider: Irlanda Taveras, THI) 0820 (Given - Provider: Irlanda Taveras, THI)1703 (Given - Provider: Irlanda Taveras, THI) 0926 (Given - Provider: Roxy Bailey, HTI) clopidogrel (Plavix) tablet 75 mg 75 mg, Oral, Daily, First dose on 04/23/25 at 0900, On hold since Thu04/28/2025 at 1542 until manually unheld 0900 (Dose Auto Held - Provider: Rick Chow MD) 0900 (Dose Auto Held - Provider: Rick Chow MD) 0900 (Dose Auto Held - Provider: Rick Chow MD)1553 (Unheld by provider - Provider: Automatic Discharge Provider) enoxaparin (Lovenox) syringe 40 mg 40 mg, SubCUTAneous, Every 24 hours scheduled (Daily), First dose (after last modification) on Thu04/29/25 at 1315, Indication of Use: Prophylaxis-DVT/PE, Indications: Prophylaxis of Venous Thromboembolism 1344 (Given - Provider: Irlanda Taveras RN) 0820 (Given - Provider: Irlanda Taveras RN)1113 (Held by provider - Provider: Rick Chow MD - Reason: Change in vital signs) 0915 (Unheld by provider - Provider: Rick Chow MD)0928 (Given - Provider: Roxy Bailey, THI) Insulin Lispro (Humalog) injection 0-6 Units(Linked Group 1) 0-6 Units, SubCUTAneous, 3 times daily with meals, First dose on Thu04/23/25 at 0800, Low Dose Correction Algorithm Glucose: Dose: LESS than 150 No Insulin 150-199 1 Unit 200-249 2 Units 250-299 3 Units 300-349 4 Units 350-400 5 Units Above 400 6 Units 0944 (Given - Provider: Irlanda Taveras RN)1344 (Given - Provider: Irlanda Taveras RN)1727 (Given - Provider: Irlanda Taveras RN) 0821 (Given - Provider: Irlanda Taveras RN)1201 (Given - Provider: Irlanda Taveras RN)1703 (Given - Provider: Irlanda Taveras RN) 0925 (Given - Provider: Roxy Bailey, THI)1207 (Given - Provider: Roxy Bailey, THI) losartan (Cozaar) tablet 100 mg 100 mg, Oral, Daily, First dose (after last modification) on Thu04/28/25 at 0645 0946 (Given - Provider: Irlanda Taveras RN) 0821 (Given - Provider: Irlanda Taveras RN) 0926 (Given - Provider: Roxy Bailey, THI) melatonin tablet 5 mg 5 mg, Oral, Nightly, First dose (after last modification) on 04/29/25 at 2100 2010 (Given - Provider: Flower Marks RN) 2114 (Given - Provider: Palmira Markham, THI) senna-docusate sodium (Senokot-S) 8.6-50 MG tablet 2 tablet 2 tablet, Oral, Daily, First dose on Trish 04/27/25 at 1200 0944 (Not Given - Provider: Irlanda Taveras RN - Reason: Patient/family refused) 0820 (Given - Provider: Irlanda Taveras RN) 0925 (Not Given - Provider: Roxy Bailey, THI - Reason: Patient/family refused) Continuous Medication Order 04/29/2025 04/30/2025 05/01/2025 sodium chloride 0.9 % infusion 50 mL/hr, IntraVENous, Continuous, Starting on 04/28/25 at 1700 2010 (New Bag - Provider: Flower Marks RN) 1601 (New Bag - Provider: Irlanda Taveras RN) 1553 (Due: Order Ending - Provider: Automatic Discharge Provider - Comment: [Order ends at this time. Document the following action when infusion is complete: Stopped]) PRN Medication Order 04/29/2025 04/30/2025 05/01/2025 acetaminophen (Tylenol) suppository 650 mg(Linked Group 2) 650 mg, Rectal, Every 6 hours PRN, fever, For temp greater than 100.4 F (38 C), Starting on 04/22/25 at 0136, Administer if oral route cannot be used. Maximum dose of acetaminophen is 4000 mg from all sources in 24 hours. 185 (See Alternative - Provider: Irlanda Taveras RN) acetaminophen (Tylenol) tablet 650 mg(Linked Group 2) 650 mg, Oral, Every 6 hours PRN, mild pain (1-3), fever, For temp greater than 100.4 F (38 C), Starting on 04/22/25 at 0136, Maximum dose of acetaminophen is 4000 mg from all sources in 24 hours. 1854 (Given - Provider: Irlanda Taveras RN) bisacodyl (Dulcolax) suppository 10 mg 10 mg, Rectal, Daily PRN, constipation, Starting on 04/22/25 at 0136, 2nd line for treatment of constipation - give scheduled (in addition to 1st line agent) if no bowel movement in past 48 hours dextrose 5 % infusion 100 mL/hr, IntraVENous, PRN, Blood sugar less than 70mg/dL, Starting on 04/22/25 at 0523, Start infusion following administration of dextrose 50% or glucagon. dextrose 50 % solution 12.5 g 12.5 g, IntraVENous, PRN, low blood sugar, Blood glucose less than 70 mg/dL and patient NOT ALERT or NPO., Starting on 04/22/25 at 0523, If patient does not respond within 5 minutes, repeat dose x1. Start D5W at 100 mL/hour until ordering provider can be reached. Repeat blood glucose in 15 minutes. If blood glucose is less than 70 mg/dL, repeat treatment and recheck blood glucose in 15 minutes x2. If using Glucostabilizer, dose as instructed per system. glucagon (human recombinant) injection 1 mg 1 mg, IntraMUSCular, PRN, low blood sugar, Blood glucose less than 70 mg/dL and patient NOT ALERT or NPO and does not have IV access., Starting on 04/22/25 at 0523, After administration, attempt intravenous access and start D5W at 100 mL/hr. Repeat blood glucose in 15 minutes x2 and notify provider. glucose oral gel 15 g 15 g, Oral, As needed, low blood sugar, Starting on 04/22/25 at 0523, If blood glucose less than 50 mg/dL and patient ALERT and NOT NPO, give 2 tubes glucose gel. If blood glucose less than 70 mg/dL and patient ALERT and NOT NPO, give 1 tube glucose gel. Repeat blood glucose in 15 minutes. If blood glucose is less than 70 mg/dL, repeat treatment and recheck blood glucose in 15 minutes x2 and notify provider. hydrALAZINE (Apresoline) injection 10 mg 10 mg, IntraVENous, Every 1 hour PRN, high blood pressure, SBP > 150, Starting on Thu04/28/25 at 1701, During or Post thrombolytic agent administration: For SBP GREATER than 150 or DBP GREATER than 105. Give over 2 minutes. Second line. labetalol (Normodyne,Trandate) injection 10 mg 10 mg, IntraVENous, Every 10 min PRN, high blood pressure, Starting on 04/22/25 at 0136, During or Post thrombolytic agent administration: For SBP GREATER than 150 or DBP GREATER than 105. Give over 1-2 minutes. If HR LESS than 65 use second option, hydralazine order. 0452 (Given - Provider: Palmira Markham RN) ondansetron (Zofran) injection 4 mg(Linked Group 3) 4 mg, IntraVENous, Every 6 hours PRN, nausea, vomiting, Starting on 04/22/25 at 0136, 1st Line. Give IV if patient is unable to take orally. If inadequate response within 60 minutes, proceed to next-line agent or contact provider if no further options ordered. ondansetron ODT (Zofran-ODT) disintegrating tablet 4 mg(Linked Group 3) 4 mg, Oral, Every 8 hours PRN, nausea, vomiting, Starting on 04/22/25 at 0136, 1st Line. If inadequate response within 60 minutes, proceed to next-line agent or contact provider if no further options ordered. Patient should allow tablet to dissolve on tongue. Do not remove from blister pack until just before administering. polyethylene glycol (PEG) 3350 (Miralax) packet 17 g 17 g, Oral, Daily PRN, constipation, Starting on 04/22/25 at 0136, 1st line for treatment of constipation - give scheduled if no bowel movement in past 24 hours. sodium chloride ([place]) 0.65 % nasal spray 1 spray 1 spray, Each Nostril, Every 2 hour PRN, congestion, Starting on Trish 04/27/25 at 1858 Linked Groups Order Group 1: Insulin Lispro (Humalog) injection 0-6 UnitsJump to med 0-6 Units, SubCUTAneous, 3 times daily with meals, First dose on Thu04/23/25 at 0800, Low Dose Correction Algorithm Glucose: Dose: LESS than 150 No Insulin 150- 199 1 Unit 200-249 2 Units 250-299 3 Units 300-349 4 Units 350-400 5 Units Above 400 6 Units And Insulin Lispro (Humalog) injection 0-6 Units (CANCELED) 0-6 Units, SubCUTAneous, Nightly, First dose on 04/23/25 at 2100, If eating or bolus tube feeding: Low Dose Correction Algorithm Glucose: Dose: LESS than 150 No Insulin 150-199 1 Unit 200-249 2 Units 250-299 3 Units 300-349 4 Units 350-400 5 Units Above 400 6 Units Group 2: acetaminophen (Tylenol) tablet 650 mgJump to med 650 mg, Oral, Every 6 hours PRN, mild pain (1-3), fever, For temp greater than 100.4 F (38 C), Starting on 04/22/25 at 0136, Maximum dose of acetaminophen is 4000 mg from all sources in 24 hours. Or acetaminophen (Tylenol) suppository 650 mgJump to med 650 mg, Rectal, Every 6 hours PRN, fever, For temp greater than 100.4 F (38 C), Starting on 04/22/25 at 0136, Administer if oral route cannot be used. Maximum dose of acetaminophen is 4000 mg from all sources in 24 hours. Group 3: ondansetron ODT (Zofran-ODT) disintegrating tablet 4 mgJump to med 4 mg, Oral, Every 8 hours PRN, nausea, vomiting, Starting on 04/22/25 at 0136, 1st Line. If inadequate response within 60 minutes, proceed to next-line agent or contact provider if no further options ordered. Patient should allow tablet to dissolve on tongue. Do not remove from blister pack until just before administering. Or ondansetron (Zofran) injection 4 mgJump to med 4 mg, IntraVENous, Every 6 hours PRN, nausea, vomiting, Starting on 04/22/25 at 0136, 1st Line. Give IV if patient is unable to take orally. If inadequate response within 60 minutes, proceed to next-line agent or contact provider if no further options ordered. Scheduled Medication Order 05/10/2025 05/11/2025 05/12/2025 amLODIPine (Norvasc) tablet 10 mg 10 mg, Oral, Daily, First dose on Thu05/12/25 at 0900 0825 (Given - Provid er: Madan Logan RN) aspirin EC tablet 162 mg 162 mg, Oral, Daily, First dose on Thu05/12/25 at 0900, Do not crush, chew, or split. 0825 (Given - Provid er: Madan Logan RN) aspirin EC tablet 325 mg (COMPLETED) 325 mg, Oral, Once, On Thu05/11/25 at 1535, For 1 dose, Do not crush, chew, or split. 1615 (Given - Provider: Marques Whitehead RN) atorvastatin (Lipitor) tablet 80 mg 80 mg, Oral, Daily, First dose on Thu05/12/25 at 0900 0824 (Given - Provid er: Madan Logan RN) barium sulfate (Varibar THIN Liquid) 40 % suspension 30 mL (COMPLETED) 30 mL, Oral, Once, On Thu05/11/25 at 1350, For 1 dose 1346 (Given - Provider: Meghana Whitley, RT (R)(CT)) carvedilol (Coreg) tablet 12.5 mg 12.5 mg, Oral, 2 times daily with meals, First dose on Thu05/11/25 at 2045 2124 (Given - Provider: Philomena Alston RN) 0825 (Given - Provider: Madan Logan RN)1700 (Canceled Entry - Provider: Automatic Discharge Provider - Comment: Automatically canceled at discontinue of medication order) dapagliflozin (Farxiga) tablet 5 mg 5 mg, Oral, Daily, First dose on Thu05/12/25 at 0900, Indications: Heart Failure, Type 2 Diabetes Mellitus 0824 (Given - Provid er: Madan Logan RN) doxazosin (Cardura) tablet 2 mg 2 mg, Oral, Nightly, First dose on Thu05/11/25 at 2100 2124 (Given - Provider: Philomena Alston RN) enoxaparin (Lovenox) syringe 40 mg 40 mg, SubCUTAneous, Every 24 hours scheduled (Daily), First dose on Thu05/12/25 at 0900, Indication of Use: Prophylaxis-DVT/PE, Indications: Prophylaxis of Venous Thromboembolism 08 (Given - Provid er: Madan Logan RN) ezetimibe (Zetia) tablet 10 mg 10 mg, Oral, Daily, First dose on Thu05/12/25 at 0900 0825 (Given - Provid er: Madan Logan RN) glipiZIDE (Glucotrol) tablet 2.5 mg 2.5 mg, Oral, Daily before breakfast, First dose on Thu05/12/25 at 0730, Substituted for glipiZIDE ER/XL (Glucotrol XL). 0824 (Given - Provid er: Madan Logan RN) losartan (Cozaar) tablet 100 mg 100 mg, Oral, Daily, First dose on Thu05/12/25 at 0900 0825 (Given - Provid er: Madan Logan RN) metFORMIN (Glucophage) tablet 850 mg 850 mg, Oral, 2 times daily with meals, First dose on Thu05/12/25 at 0800 0824 (Given - Provid er: Madan Logan RN)1700 (Canceled Entry - Provider: Automatic Discharge Provider - Comment: Automatically canceled at discontinue of medication order) senna-docusate sodium (Senokot-S) 8.6-50 MG tablet 2 tablet 2 tablet, Oral, Daily, First dose on Thu05/12/25 at 0900 0825 (Given - Provid er: Madan Logan RN) sodium chloride 0.9 % bolus 250 mL (COMPLETED) 250 mL, IntraVENous, at 250 mL/hr, Administer over 1 Hours, Once, On Thu05/11/25 at 0950, For 1 dose 1034 (New Bag - Provider: Marques Whitehead RN)1236 (Stopped - Provider: Mone Quan RN) Continuous Medication Order 05/10/2025 05/11/2025 05/12/2025 sodium chloride 0.9 % infusion (CANCELED) 50 mL/hr, IntraVENous, Continuous, Starting on Thu05/11/25 at 0950 1236 (New Bag - Provider: Michael Quan RN)1632 (Rate/Dose Verify - Provider: Marques Whitehead RN)1908 (Stopped - Provider: Marques Whitehead RN) PRN Medication Order 05/10/2025 05/11/2025 05/12/2025 acetaminophen (Tylenol) suppository 650 mg(Linked Group 1) 650 mg, Rectal, Every 6 hours PRN, mild pain (1-3), fever, For temp greater than 100.4 F (38 C), Starting on Trish 05/11/25 at 1908, Administer if oral route cannot be used. Maximum dose of acetaminophen is 4000 mg from all sources in 24 hours. acetaminophen (Tylenol) tablet 650 mg(Linked Group 1) 650 mg, Oral, Every 6 hours PRN, mild pain (1-3), fever, For temp greater than 100.4 F (38 C), Starting on Trish 05/11/25 at 1908, Maximum dose of acetaminophen is 4000 mg from all sources in 24 hours. iopamidol (Isovue-370) 76 % injection 100 mL (COMPLETED) 100 mL, IntraVENous, IMG once PRN, contrast, Starting on Trish 05/11/25 at 09, For 1 dose 951 (Given - Provider: Walt Reid, RT (R)(CT)) melatonin tablet 5 mg 5 mg, Oral, Nightly PRN, sleep, Starting on Trish 05/11/25 at 2041 2123 (Given - Provider: Philomena Alston, RN) ondansetron (Zofran) injection 4 mg(Linked Group 2) 4 mg, IntraVENous, Every 6 hours PRN, nausea, vomiting, Starting on Trish 05/11/25 at 1908, Administer if oral route cannot be used. ondansetron ODT (Zofran-ODT) disintegrating tablet 4 mg(Linked Group 2) 4 mg, Oral, Every 8 hours PRN, nausea, vomiting, Starting on Trish 05/11/25 at 1908, Patient should allow tablet to dissolve on tongue. Do not remove from blister pack until just before administering. polyethylene glycol (PEG) 3350 (Miralax) packet 17 g 17 g, Oral, Daily PRN, constipation, Starting on Trish 05/11/25 at 1908, 1st line for treatment of constipation - give scheduled if no bowel movement in past 24 hours. sodium chloride ([place]) 0.65 % nasal spray 1 spray 1 spray, Each Nostril, Every 2 hour PRN, congestion, Starting on Trish 05/11/25 at 2041 Linked Groups Order Group 1: acetaminophen (Tylenol) tablet 650 mgJump to med 650 mg, Oral, Every 6 hours PRN, mild pain (1-3), fever, For temp greater than 100.4 F (38 C), Starting on Trish 05/11/25 at 1908, Maximum dose of acetaminophen is 4000 mg from all sources in 24 hours. Or acetaminophen (Tylenol) suppository 650 mgJump to med 650 mg, Rectal, Every 6 hours PRN, mild pain (1-3), fever, For temp greater than 100.4 F (38 C), Starting on Trish 05/11/25 at 1908, Administer if oral route cannot be used. Maximum dose of acetaminophen is 4000 mg from all sources in 24 hours. Group 2: ondansetron ODT (Zofran-ODT) disintegrating tablet 4 mgJump to med 4 mg, Oral, Every 8 hours PRN, nausea, vomiting, Starting on Trish 05/11/25 at 1908, Patient should allow tablet to dissolve on tongue. Do not remove from blister pack until just before administering. Or ondansetron (Zofran) injection 4 mgJump to med 4 mg, IntraVENous, Every 6 hours PRN, nausea, vomiting, Starting on Trish 05/11/25 at 1908, Administer if oral route cannot be used. FOR RECORDS PERTAINING TO PATIENTS WHO ARE OR HAVE BEEN ENROLLED IN A CHEMICAL DEPENDENCY/SUBSTANCEABUSE PROGRAM, SOME INFORMATION MAY BE OMITTED. This clinical summary was aggregated from multiple sources. Caution should be exercised in using it in the provision of clinical care. This summary normalizes information from multiple sources, and as a consequence, information in this document may materially change the coding, format and clinical context of patient data. In addition, data may be omitted in some cases. CLINICAL DECISIONS SHOULD BE BASED ON THE PRIMARY CLINICAL RECORDS. [facility] [employer] [facility] provides no warranty or guarantee of the accuracy or completeness of information in this document.
[2025-06-29 02:14] LABS: Hematocrit 36.5 % (40-54); Hemoglobin 11.9 g/dL (13.0-16.5); Immature Granulocytes Count 0.060 X10^3/uL (0.0-0.0); Mean Corp Hgb Conc 32.6 g/dL (32-36); Mean Corpuscular Volume 89.2 fL (80-94); Mean Platelet Vol. 9.1 fl (6.2-12.0); NRBC Flagged by Analyzer 0 % (0-5); Platelet Count 279 K/mm3 (150-450); RBC Distribution Width CV 14.0 % (11.6-14.6); RBC Distribution Width SD 45.1 fl (35.1-43.9); Red Blood Count 4.09 M/mm3 (4.6-6.2); White Blood Count 12.8 K/mm3 (4.4-11.0)
[2025-06-29 02:37] LABS: Anion Gap 12 (5-15); BUN 31 mg/dL (4-19); BUN/Creat Ratio 23.8 RATIO (10-20); Calcium,Total 9.6 mg/dL (7.6-11.0); Carbon Dioxide 22.1 mmol/L (21.0-32.0); Chloride 103 mmol/L (98-108); Estimated Creatinine Clearance 45.68 ml/min (50-250); Glucose 177 mg/dL (70-99); Potassium 4.3 mmol/L (3.3-5.1)
[2025-06-29 02:47] VITALS: BP 153/82; PULSE 69; RESP 18; O2SAT 95
--- NOTE | 2025-06-29 03:18 | EX.PCM.CON.S ---
Assessment & Plan Assessment/Plan (1) Incarcerated inguinal hernia: PLAN: I saw the patient 2 days ago in the office for right inguinal hernia. At that time he elected to wait a month and keep continuing his stroke rehab before addressing his hernia. He comes in with a few hours of incarceration of his right inguinal hernia. I was able to reduce it with manual pressure. He is on double baby aspirin per day. I instructed him how to reduce his hernia and he reduces it daily on his own and wears a hernia belt. I instructed him to hold his aspirin and his Jardiance and I will add him on for Thursday. If the hernia incarcerates anytime between now and then he is instructed to come back to the ER immediately Jacob Mcallister MD Pager: [facility] [address] [place] [address], [address] [place] [address] Office: HPI Consult Data Date of Consult: 06/29/25 HPI Narrative HPI Narrative: TOM JOE, is a 80 M who presents with a right inguinal hernia that has been incarcerated since 10 PM. The patient reports that it is painful. He is usually able to reduce this. He is on the schedule for July. [facility] Medical History Right inguinal hernia Home Medications ?Medication ?Instructions ?Recorded ?Last Taken ?Type atorvastatin 80 mg tablet 80 mg PO DAILY cholesterol 12/03/17 Unknown History glipizide 5 mg tablet 5 mg PO DAILY diabetes 12/03/17 Unknown History metformin 850 mg tablet 850 mg PO DAILY diabetes 12/03/17 Unknown History multivitamin (Multiple Vitamins 1 ea PO DAILY supplement 12/03/17 Unknown History tablet) omeprazole 20 mg capsule,delayed 20 mg PO DAILY gerd 12/03/17 12/16/17 04:00 History release aspirin 81 mg tablet 162 mg PO DAILY 06/27/25 Unknown History carvedilol 12.5 mg tablet 12.5 mg PO BID 06/27/25 Unknown History empagliflozin 10 mg tablet 25 mg PO QAM 06/27/25 Unknown History (Jardiance) evolocumab 140 mg/mL subcutaneous 140 mg subcut Q2W 06/27/25 Unknown History pen injector (Repatha SureClick) losartan 100 mg tablet 50 mg PO QDAY 06/27/25 Unknown History sertraline 25 mg tablet 25 mg PO QDAY 06/27/25 Unknown History docusate sodium 100 mg capsule 100 mg PO BID PRN constipation 06/29/25 Unknown History melatonin 10 mg capsule 10 mg PO QHS 06/29/25 Unknown History Allergy/AdvReac Type Severity Reaction Status Date / Time No Known Allergies Allergy Verified 06/27/25 13:17 Surgical History History of open heart surgery Hx of radical prostatectomy Social History Smoking Status: Former smoker alcohol intake: current alcohol intake frequency: holidays/special occasions only substance use type: does not use Physical Exam Const alert and oriented x3 HEENT normocephalic Resp normal respiratory effort Cardio Rate: regular rate Rhythm: regular rhythm GI soft to palpation Palpation: hernia indirect inguinal right Extremity normal to inspection Lab / Micro Data 06/29/25 02:05 06/29/25 02:05 Labs: Laboratory Results - last 24 hr 06/29/25 02:05: WBC 12.8 H, RBC 4.09 L, Hgb 11.9 L, Hct 36.5 L, MCV 89.2, MCH 29.1, MCHC 32.6, RDW Std Deviation 45.1 H, RDW Coeff of Amos 14.0, Plt Count 279, MPV 9.1, Immature Gran % (Auto) 0.500, Neut % (Auto) 73.7 H, Lymph % (Auto) 11.3 L, [place] % (Auto) 10.6 H, Eos % (Auto) 3.2, Baso % (Auto) 0.7, Absolute Neuts (auto) 9.5 H, Absolute Lymphs (auto) 1.45, Nucleated RBC % 0, Sodium 138, Potassium 4.3, Chloride 103, Carbon Dioxide 22.1, Anion Gap 12, BUN 31 H, Creatinine 1.30 H, Estim Creat Clear Calc 45.68 L, Est GFR (MDRD) Non-Af 56 L, BUN/Creatinine Ratio 23.8 H, Glucose 177 H, Calcium 9.6
[2025-06-29 03:54] VITALS: BP 116/91; PULSE 75; RESP 18; TEMP 36.8; O2SAT 99
== END 2025-06-29 03:55 | disposition home or self-care (01) ==
PROVIDERS: Emergency Provider Emergency Medicine; Visit Provider Emergency Medicine
DX: K40.30 Unilateral inguinal hernia, with obstruction, without gangrene, not specified as recurrent (principal); E11.9 Type 2 diabetes mellitus without complications; I69.328 Other speech and language deficits following cerebral infarction; Z85.46 Personal history of malignant neoplasm of prostate; Z90.79 Acquired absence of other genital organ(s); Z79.84 Long term (current) use of oral hypoglycemic drugs; Z79.82 Long term (current) use of aspirin; Z79.899 Other long term (current) drug therapy; Z87.891 Personal history of nicotine dependence
CPT/HCPCS: 80048; 85025; 96374; 96375; 96376; 99283; A4216; J2405

== ENCOUNTER 2025-07-04 12:33 | Day surgery (SDC) | payer MEDICARE, SELFPAY ==
--- NOTE | 2025-06-30 20:09 | PAT.ANE_ITS ---
Pre-Assessment Diagnosis/Proposed Procedure Planned Operative Procedure(s): (R) Hernia,Open right Inguinal w/ Mesh Anesthesia History Anesthesia History - associate technician: Anesthesia History - associate technician Hx Hospitalization Yes: CVA 04/202506/30/25 14:17 Any Problems With Anesthesia No 06/30/25 14:17 Cholinesterase deficiency No 06/30/25 14:17 You/Your Family Experience No 06/30/25 14:17 fever (hyperthermia) with Relationship Recent Exposure to Contagious No 12/16/17 05:42 Disease Does patient have nerve No 06/30/25 14:17 stimulator Patient instructed to have device shut off --Does patient have Pacemaker or ICD? When Was Last Pacemaker Check QUESTION #4 FULL TEXT: You/Your Family Experience fever (hyperthermia) with Anesthesia Last Oral Intake Last Oral intake: Last Oral Intake NPO since Meds taken in AM with sips of water? Meds patient instructed to take am of surgery PONV PONV - associate technician: PONV - associate technician Female No 06/30/25 14:17 HX of Motion Sickness No 06/30/25 14:17 HX of N/V After Surgery No 06/30/25 14:17 Non-Smoker Yes 06/30/25 14:17 Duration of Surgery greater Yes 06/30/25 14:17 than 60 minutes Number of Risk Factors 2 06/30/25 14:17 PONV Score Moderate Risk 06/30/25 14:17 Height & Weight Height & Weight: Anesthesia: Height & Weight Height 5 ft 11 in 06/29/25 01:50 Respiratory Assessment Respiratory Assessment - associate technician: Respiratory Tract Infection Hx - associate technician Hx Respiratory Tract Infection No 06/30/25 14:17 STOP Sleep Apnea STOP Sleep Apnea - associate technician: STOP Sleep Apnea - associate technician Hx Hypertension Yes 06/30/25 14:17 Hx Sleep Apnea Yes 06/30/25 14:17 CPAP Yes: APAP-ON ORDER, DOESN'T 06/30/25 14:17
--- NOTE | 2025-06-30 20:09 | PAT.ANESEVAL ---
Pre-Assessment Diagnosis/Proposed Procedure Planned Operative Procedure(s): (R) Hernia,Open right Inguinal w/ Mesh Anesthesia History Anesthesia History - surveillance monitor: Anesthesia History - surveillance monitor Hx Hospitalization Yes: CVA 04/202506/30/25 14:17 Any Problems With Anesthesia No 06/30/25 14:17 Cholinesterase deficiency No 06/30/25 14:17 You/Your Family Experience No 06/30/25 14:17 fever (hyperthermia) with Relationship Recent Exposure to Contagious No 12/16/17 05:42 Disease Does patient have nerve No 06/30/25 14:17 stimulator Patient instructed to have device shut off --Does patient have Pacemaker or ICD? When Was Last Pacemaker Check QUESTION #4 FULL TEXT: You/Your Family Experience fever (hyperthermia) with Anesthesia Last Oral Intake Last Oral intake: Last Oral Intake NPO since Meds taken in AM with sips of water? Meds patient instructed to take am of surgery PONV PONV - surveillance monitor: PONV - surveillance monitor Female No 06/30/25 14:17 HX of Motion Sickness No 06/30/25 14:17 HX of N/V After Surgery No 06/30/25 14:17 Non-Smoker Yes 06/30/25 14:17 Duration of Surgery greater Yes 06/30/25 14:17 than 60 minutes Number of Risk Factors 2 06/30/25 14:17 PONV Score Moderate Risk 06/30/25 14:17 Height & Weight Height & Weight: Anesthesia: Height & Weight Height 5 ft 11 in 06/29/25 01:50 Respiratory Assessment Respiratory Assessment - surveillance monitor: Respiratory Tract Infection Hx - surveillance monitor Hx Respiratory Tract Infection No 06/30/25 14:17 STOP Sleep Apnea STOP Sleep Apnea - surveillance monitor: STOP Sleep Apnea - surveillance monitor Hx Hypertension Yes 06/30/25 14:17 Hx Sleep Apnea Yes 06/30/25 14:17 CPAP Yes: APAP-ON ORDER, DOESN'T 06/30/25 14:17 HAVE YET BIPAP No 06/30/25 14:17 Do you snore loudly (louder than talking or can be heard Do you often feel tired/ fatigued/ sleepy during daytime? Has anyone observed you stop breathing during sleep? STOP Results Positive 06/30/25 14:17 QUESTION #5 FULL TEXT : Do you snore loudly (louder than talking or can be heard through closed doors)? Tobacco Use History Tobacco Use History - surveillance monitor: Tobacco Use History - surveillance monitor Tobacco Use Smoking Status Former smoker 06/30/25 14:17 Hx Tobacco Use No 06/30/25 14:17 Years Smoking Packs Smoked per Day Smoking Cessation Date was No - quit smoking greater 06/30/25 14:17 within the last 15 years than 15 years ago Hx Smoking Cessation Date Hx Smoking Cessation Counseling Hematologic Medial History Hematologic Hx - surveillance monitor: Hematologic Medical Hx - competency evaluated nurse aide Hx of Blood Transfusion No 06/30/25 14:17 Hx of Transfusion in last 3 No 06/30/25 14:17 Months Date of Last Transfusion (if within last 3 months) Ever experience any problems No 06/30/25 14:17 with transfusion(s)? Specify any problems Hx of Preganancy in last 3 N/A 06/30/25 14:17 Months Nurse Filling Out Transfusion [facility] 06/30/25 14:17 & Questions: Date: 06/30/25 06/30/25 14:17 Time: 14:30 06/30/25 14:17 Patient unable to answer at this time (ie. confused, unrespo /Reproduction History /Reproductive History - surveillance monitor: /Reproductive Hx- surveillance monitor Hx Now Gestational Age (in weeks): EDC: Hx Hx Para Hx Section SAB PFSH Medical History (Updated 06/30/25 @ 14:30 by Nathaly Faulkner) Wears glasses Cancer Alcohol use Diabetes Uses wheelchair Walker as ambulation aid Ambulates with cane Prostate disease History of renal disease High cholesterol Stroke/cerebrovascular accident Gastric reflux Former smoker CPAP (continuous positive airway pressure) dependence Sleep apnea History of Holter monitoring Hypertension Cardiology follow-up encounter Right inguinal hernia Home Medications ?Medication ?Instructions ?Recorded ?Last Taken ?Type atorvastatin 80 mg tablet 80 mg PO DAILY cholesterol 12/03/17 Unknown History glipizide 5 mg tablet 5 mg PO DAILY diabetes 12/03/17 Unknown History metformin 850 mg tablet 850 mg PO DAILY diabetes 12/03/17 Unknown History multivitamin (Multiple Vitamins 1 ea PO DAILY supplement 12/03/17 Unknown History tablet) omeprazole 20 mg capsule,delayed 20 mg PO DAILY gerd 12/03/17 12/16/17 04:00 History release aspirin 81 mg tablet 162 mg PO DAILY 06/27/25 Unknown History carvedilol 12.5 mg tablet 12.5 mg PO BID 06/27/25 Unknown History empagliflozin 10 mg tablet 25 mg PO QAM 06/27/25 06/28/25 History (Jardiance) evolocumab 140 mg/mL subcutaneous 140 mg subcut Q2W 06/27/25 Unknown History pen injector (Afshin Jarvis) losartan 100 mg tablet 50 mg PO QDAY 06/27/25 Unknown History sertraline 25 mg tablet 25 mg PO QDAY 06/27/25 Unknown History docusate sodium 100 mg capsule 100 mg PO BID PRN constipation 06/29/25 Unknown History melatonin 10 mg capsule 10 mg PO QHS 06/29/25 Unknown History Allergy/AdvReac Type Severity Reaction Status Date / Time azithromycin (From Zithromax) Allergy Mild Rash Verified 06/30/25 14:12 fosinopril (From Monopril) Allergy Mild PT UNSURE Verified 06/30/25 14:12 OF REACTION lovastatin (From Mevacor) Allergy Mild PT UNSURE Verified 06/30/25 14:12 OF REACTION Surgical History (Updated 06/30/25 @ 14:30 by Nathaly Faulkner) History of cardiac catheterization History of open heart surgery Hx of radical prostatectomy Social History Smoking Status: Former smoker alcohol intake: current alcohol intake frequency: holidays/special occasions only substance use type: does not use Audit: Pertinent Findings Pertinent Findings EKG Perinent findings: 04/21/2025. Sinus rhythm. Right bundle branch block. Echo (EF%) pertinent findings: 04/22/2025. EF of 66%. Ascending aorta is 4.1 cm. No significant valvular abnormalities. Heart catheterization pertinent findings: 12/04/2022. 1. Heavily calcific and tortuous [place] three-vessel disease. 50% heavily calcified distal left main stenosis. 100% ostial occlusion LAD. 100% mid occluded RCA. Circumflex with 80% proximal stenosis and 70% proximal obtuse marginal stenosis. Patent CARNEY to the LAD with collaterals to the RCA. Recommend medical therapy at this time. Add Imdur. Consult pertinent findings: 06/12/2025. FISH [facility] ARCHITECT. 1. 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 Status post thrombectomy. Currently on low-dose aspirin and atorvastatin. Echo showed negative bubble study. Plan for 30-day event monitor. Residual right-sided weakness and difficulty with speech. 2. Coronary artery disease?stable. No anginal symptoms. CARNEY to the LAD is patent. SVG to the PDA and OM1 are not seen on last cath in 2022. (Above) 3. Heart failure with preserved ejection fraction-stable. NYHA class I-II. Continue Jardiance daily. 4. Hypertension?controlled. Continue losartan and carvedilol. 5. Paroxysmal atrial fibrillation-occurred status post CABG. No recurrence since. Recommendation Anesthesia Recommendation Anesthesia recommendation: OPTIMIZED for anesthesia
[2025-07-04] VITALS (10 sets, daily range): BP systolic 137–174; BP diastolic 72–88; PULSE 69–75; RESP 16–20; TEMP 36.1–36.4; O2SAT 95–100; BMI 21.1
--- NOTE | 2025-07-04 13:03 | HP.PCM_ITS ---
History and Physical Date of Admission: 07/04/25 Intake Vital Signs 06/27/2513:16 Height 5 ft 11 in Weight: 152 lb BMI 21.2 BP 147/79 H Blood Pressure Location Rt brachial Position Sitting Respiration 18 Pulse 78 Pulse Source Monitor Temp 98.0 F Temp Source Temporal Pulse Oximetry (%) 97 Oxygen Delivery Method room air Intake Visit Reasons: Hernia Chief Complaint: right inguinal hernia Accompanied by: Is patient in pain?: No Allergies No Known Allergies Allergy (Verified 06/27/25 13:17) Have you fallen in the past year?: No PFSH Medical History (Updated 06/27/25 @ 13:15 by Nargis Wilde LPN) Right inguinal hernia Surgical History (Updated 06/27/25 @ 13:15 by Nargis Wilde LPN) History of open heart surgery Hx of radical prostatectomy Social History (Updated 06/27/25 @ 13:16 by Nargis Wilde LPN) Smoking Status: Former smoker alcohol intake: current alcohol intake frequency: holidays/special occasions only substance use type: does not use HPI HPI HPI: Patient is a 80-year-old male here with right inguinal hernia. The patient had a recent stroke in March. The patient is having hemiplegia on the right side and he is working on rehab currently. He is not on any blood thinners. ROS General General: No weight change, appetite, fatigue, colon cancer, breast cancer or weakness HEENT HEENT: No difficulty swallowing, eye injury, eye surgery, swollen glands or hoarseness Endo Endocrine: Yes diabetes mellitus; No thyroid disease, thyroid cancer, Hair loss, heat intolerance or cold intolerance Skin Skin: No rash or changing moles Musc Musculoskeletal: No back problems, arthritis, rheumatoid arthritis, gout or joint pain Cardio Cardiovascular: No murmur, pacemaker, heart disease, atrial fibrillation, high blood pressure, heart attack, heart stent, palpitations, shortness of breath with exertion or chest pain Psych Psychiatric: No depression, anxiety or hearing voices Resp Respiratory: No shortness of breath, Yes sleep apnea, No cough, No COPD, No asthma, No emphysema and No wheezing Gastro Gastrointestinal: No abdominal pain, No nausea or vomiting, No diarrhea, No constipation, No blood in stool, No acid reflux, No hemorrhoids, No ulcers, No gallbladder problem and No black,tarry stools Josue Hematologic: No blood thinners, No blood disorders, No bleeding, No anemia and No blood clots Neuro Neurologic: Yes as per HPI (hx stroke 03/2025) and No weakness Exam Const General: cooperative Orientation: alert and oriented x3 HENMT Head: normal to inspection Neck Neck: normal visual inspection and full ROM Chest Chest palpation & inspection: normal inspection of the chest Resp Effort & Inspection: normal respiratory effort Auscultation: clear to auscultation bilaterally Cardio Rate: regular rate Rhythm: regular rhythm GI Inspection: non-distended Palpation: soft and nontender Skin General: no rashes or lesions noted Neuro General: patient alert and patient oriented x3 Extrem General: full ROM Psych Appearance: grossly normal Mental Status: mental status grossly normal Assessment and Plan Assessment and Plan (1) Right inguinal hernia: Status: Acute Plan: The patient has a reducible right inguinal hernia. I discussed repair with him in detail. I discussed the risks of the procedure including but not limited to bleeding, infection, injury to other organ such as the blood supply of the testicle, bowel, chronic groin pain, mesh infection. Patient understands the risks [place] proceed. He would like to push repair out a month so he can finish rehab for his stroke. Jacob Mcallister MD Pager: [facility] [address] [place] [address], [address] [place] [address] Office: I have examined the patient and the H&P has been reviewed. The patient came in with an incarcerated right inguinal hernia 2 days after being seen in the office. He was scheduled sooner to take care of this right inguinal hernia.
[2025-07-04] MEDS: Lactated Ringers 1,000 ML 15 ML IV (13:31)
--- NOTE | 2025-07-04 13:42 | PCM.PRE.AN2 ---
ASA Classification* ASA Classification ASA Classification: 3 and E (Patient had a recent incarceration of the hernia. This is now a urgent procedure.) Assessment & Plan Anesthesia* Anesthesia Assessment Anesthesia Assessment: Discussed sedation and/or anesthesia options, risks, benefits, and alternatives with patient/parents/legal guardian/POA. Questions invited. The patient/parents/legal guardian/POA seems to understand and agrees to proceed with anesthesia plan. Reviewed the physical assessment, medical history, allergy history and patient home medications list prior to surgery/procedure/anesthetic and documented any changes. Performed airway and anesthesia risk assessments. Anesthesia Type Anesthesia Type: General (Consider GlideScope for intubation.) History Source History Obtained from:: Patient and Chart Anesthesia Focused Assessment* Temperature: 97.0 F Pulse Rate: 69 Blood Pressure: 167/84 Respiratory Rate: 18 Pulse Ox: 100 Oxygen Delivery Method: Room Air Airway Assessment Mouth opens: >3 cm Mallampati Score: IV Teeth Condition: Caps/Crowns (Patient has several caps. They are tight.) Neck Range of motion (ROM): Limited ROM (Severe Restriction) Labs Anesthesia Preop lab: CBC WBC 12.8 K/mm3 (4.4-11.0) H 06/29/25 02:05 06/29/25 RBC 4.09 M/mm3 (4.6-6.2) L 06/29/25 02:05 06/29/25 Hgb 11.9 g/dL (13.0-16.5) L 06/29/25 02:05 06/29/25 Hct 36.5 % (40-54) L 06/29/25 02:05 06/29/25 Plt Count 279 K/mm3 (150-450) 06/29/25 02:05 06/29/25 CHEMISTRY Potassium 4.3 mmol/L (3.3-5.1) 06/29/25 02:05 06/29/25 Sodium 138 mmol/L (133-145) 06/29/25 02:05 06/29/25 BUN 31 mg/dL (4-19) H 06/29/25 02:05 06/29/25 Creatinine 1.30 mg/dL (0.70-1.20) H 06/29/25 02:05 06/29/25 Glucose 177 mg/dL (70-99) H 06/29/25 02:05 06/29/25 POC Glucose 148 mg/dL (70-110) H 12/18/17 06:35 12/18/17 COAG PT 12.6 SECONDS (11.7-14.9) 12/03/17 10:40 12/03/17 Pre-Assessment Diagnosis/Proposed Procedure Planned Operative Procedure(s): (R) Hernia,Open right Inguinal w/ Mesh Anesthesia History Anesthesia History - service operations manager: Anesthesia History - service operations manager Hx Hospitalization Yes: [facility] 04/21/2025 06/30/25 14:17 Any Problems With Anesthesia No 06/30/25 14:17 Cholinesterase deficiency No 06/30/25 14:17 You/Your Family Experience No 06/30/25 14:17 fever (hyperthermia) with Relationship Recent Exposure to Contagious No 07/04/25 12:58 Disease Does patient have nerve No 06/30/25 14:17 stimulator Patient instructed to have device shut off --Does patient have Pacemaker No 07/04/25 12:58 or ICD? When Was Last Pacemaker Check QUESTION #4 FULL TEXT: You/Your Family Experience fever (hyperthermia) with Anesthesia Last Oral Intake Last Oral intake: Last Oral Intake NPO since 09:00 07/04/25 12:58 Meds taken in AM with sips of Yes 07/04/25 12:58 water? Meds patient instructed to see medlist 07/04/25 12:58 take am of surgery Any additional information?: Yes NPO since: 09:00 (Clary george at 9 AM.) Meds taken in AM with sips of water?: Yes PONV PONV - service operations manager: PONV - service operations manager Female No 06/30/25 14:17 HX of Motion Sickness No 06/30/25 14:17 HX of N/V After Surgery No 06/30/25 14:17 Non-Smoker Yes 06/30/25 14:17 Duration of Surgery greater Yes 06/30/25 14:17 than 60 minutes Number of Risk Factors 2 06/30/25 14:17 PONV Score Moderate Risk 06/30/25 14:17 Height & Weight Height & Weight: Anesthesia: Height & Weight Height 5 ft 11 in 07/04/25 12:58 Weight: 68.7 kg 07/04/25 12:58 Body Mass Index (BMI) 21.1 07/04/25 12:58 Respiratory Assessment Respiratory Assessment - service operations manager: Respiratory Tract Infection Hx - service operations manager Hx Respiratory Tract Infection No 06/30/25 14:17 STOP Sleep Apnea STOP Sleep Apnea - service operations manager: STOP Sleep Apnea - service operations manager Hx Hypertension Yes 06/30/25 14:17 Hx Sleep Apnea Yes 06/30/25 14:17 CPAP Yes: APAP-ON ORDER, DOESN'T 06/30/25 14:17 HAVE YET BIPAP No 06/30/25 14:17 Do you snore loudly (louder than talking or can be heard Do you often feel tired/ fatigued/ sleepy during daytime? Has anyone observed you stop breathing during sleep? STOP Results Positive 06/30/25 14:17 QUESTION #5 FULL TEXT : Do you snore loudly (louder than talking or can be heard through closed doors)? 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 Specify any problems Hx of Preganancy in last 3 N/A 06/30/25 14:17 Months Nurse Filling Out Transfusion [facility] [place] 06/30/25 14:17 & Questions: Date: 06/30/25 06/30/25 14:17 Time: 14:30 06/30/25 14:17 Patient unable to answer at this time (ie. confused, unrespo /Reproduction History /Reproductive History - service operations manager: /Reproductive Hx- service operations manager Hx Now Gestational Age (in weeks): EDC: Hx Hx Para Hx Section SAB Active Medications Active Medications: Current Medications Generic Name Dose Route Start Last Admin Trade Name Trentonq PRN Reason Stop Dose Admin Lactated Ringer's 1,000 mls @ 15 mls/hr 07/04/25 13:00 07/04/25 13:31 IV 15 mls/hr .Q48H FOUZIA Administration Cefazolin Sodium 2 gm/ Sodium 110 mls @ 200 mls/hr 07/04/25 13:35 Chloride IV 07/04/25 14:07 INTRAOP ONE PFSH Medical History Wears glasses Cancer Alcohol use Diabetes Uses wheelchair Walker as ambulation aid Ambulates with cane Prostate disease History of renal disease High cholesterol Stroke/cerebrovascular accident Gastric reflux Former smoker CPAP (continuous positive airway pressure) dependence Sleep apnea History of Holter monitoring Hypertension Cardiology follow-up encounter Right inguinal hernia Home Medications ?Medication ?Instructions ?Recorded ?Last Taken ?Type atorvastatin 80 mg tablet 80 mg PO DAILY cholesterol 12/03/17 Unknown History glipizide 5 mg tablet 5 mg PO DAILY diabetes 12/03/17 Unknown History metformin 850 mg tablet 850 mg PO DAILY diabetes 12/03/17 Unknown History multivitamin (Multiple Vitamins 1 ea PO DAILY supplement 12/03/17 Unknown History tablet) omeprazole 20 mg capsule,delayed 20 mg PO DAILY gerd 12/03/17 12/16/17 04:00 History release aspirin 81 mg tablet 162 mg PO DAILY 06/27/25 06/28/25 History carvedilol 12.5 mg tablet 12.5 mg PO BID 06/27/25 07/04/25 History empagliflozin 10 mg tablet 25 mg PO QAM 06/27/25 06/28/25 History (Jardiance) evolocumab 140 mg/mL subcutaneous 140 mg subcut Q2W 06/27/25 Unknown History pen injector (Repatha SureTenzinick) losartan 100 mg tablet 50 mg PO QDAY 06/27/25 07/04/25 History sertraline 25 mg tablet 25 mg PO QDAY 06/27/25 Unknown History docusate sodium 100 mg capsule 100 mg PO BID PRN constipation 06/29/25 Unknown History melatonin 10 mg capsule 10 mg PO QHS 06/29/25 Unknown History Allergy/AdvReac Type Severity Reaction Status Date / Time azithromycin (From Zithromax) Allergy Mild Rash Verified 07/04/25 12:56 fosinopril (From Monopril) Allergy Mild PT UNSURE Verified 07/04/25 12:56 OF REACTION lovastatin (From Mevacor) Allergy Mild PT UNSURE Verified 07/04/25 12:56 OF REACTION Surgical History History of cardiac catheterization History of open heart surgery Hx of radical prostatectomy Social History Smoking Status: Former smoker alcohol intake: current alcohol intake frequency: holidays/special occasions only substance use type: does not use Review of Systems (Anesthesia) ROS Narrative System reviewed and no additional complaints, except as documented.
[2025-07-04] MEDS: Lactated Ringers 1,000 ML 1000 ML IV (13:59)
[2025-07-04] MEDS: Lidocaine 1% (5 ml sdv) 5 ML Vial IV (14:08)
[2025-07-04] MEDS: Cefazolin 1 GM/5 ML Vial 2 GM IV (14:10)
[2025-07-04] MEDS: Bupiv/Epi 0.25% 30 ML Vial (14:19)
[2025-07-04] MEDS: fentaNYL 100 MCG/2 ML Ampul IV (14:20)
--- NOTE | 2025-07-04 14:30 | HERN_PTH ---
PATIENT: TOM JOE LOC: [facility] [place] U#:[id number] AGE/SX: 80/M ROOM: RE07/04/[address]: Dr. Jacob cMallister MD : [id number] BED: DIS: 07/04/2025 SPEC #: [id number] RECD: 07/04/25 16:13 STATUS: ASMITA REHerbert #: [id number] SHIRA: 07/04/25 14:[address]: Jacob Mcallister DEPT: SURGICAL PATHOLOGY RECD BY: Fran Gardner ENTERED: 07/05/25 09:52 SP TYPE: Hernia OTHR DR: Dr. Elena Flores, DO Tissues: A - LIPOMA OF CORD Procedures: Surgery Specimen Level III HEADER OPERATION: Hernia, open right inguinal with mesh PRE-OP DIAGNOSIS: Right inguinal hernia TISSUE SUBMITTED: A- Lipoma of cord MICROSCOPIC DIAGNOSIS A. Soft tissue, right, open right inguinal hernia repair: Benign fibromembranous and adipose tissue consistent lipoma MICROSCOPIC DESCRIPTION Slides are reviewed. GROSS DESCRIPTION A. Received in formalin labeled with the patient's name and date of . Designated as lipoma of the cord are 2 yellow and lobulated soft tissue fragments each with attached pink-dillon to calderon semimembranous tissue, 7.0 x 1.1 x 0.7 cm (#1) and 6.2 x 3.3 x 1.2 cm (#2). Sectioning reveals fatty cut surfaces with identifiable vessels 3 fragment #2. Office Services Specialist sections are submitted in 2 cassettes as follows: A1: Fragment #1A2: Fragment #2 ID 07/05/2025 CPT:55188
--- NOTE | 2025-07-04 15:14 | OP.PCM_ITS ---
Operative Report (Standard) Operative Information Date of Procedure: 07/04/25 Pre-Operative Diagnosis: Right inguinal hernia Post-Operative Diagnosis: Right inguinal hernia Surgery/Procedure Performed: Right inguinal hernia repair with mesh ointment mill tender: Yes Trade Show Specialist: Arnaud Lawrence Tasks completed by assistant import manager: Opening & closing and Retracting Type of Anesthesia: General/Regional RN Documented Start/Stop Times: Operation Date: 07/04/25 14:30 Case Time Into Pre-Op 07/04/25 12:46 Anesthesia Start 07/04/25 13:59 Into Room 07/04/25 13:59 Procedure Start 07/04/25 14:20 Procedure End 07/04/25 15:07 Procedure Start Time: 14:20 Procedure Stop Time: 15:07 Select all DRAINS/GRAFTS/IMPLANTS that apply: Implanted device Implanted device details: Bard keyhole mesh Estimated Blood Loss: 10 Specimen collected: Yes Description of specimen(s) removed: Lipoma of the cord Description of surgery: Patient was brought back to the operating room and general anesthesia was induced. The abdomen was prepped and draped in usual sterile fashion as well as the right groin. An area between the ASIS and the pubic tubercle was chosen for an incision and it was marked and injected with local anesthetic. Incision was made and deepened to the external aponeurosis. The external ring was very difficult to find and was very deep in the pelvis. The external aponeurosis was nicked with a scalpel and then opened with scissors inferiorly until the external ring was encountered. Next the cord was dissected and it was elevated is much as possible but it was very stuck. I was unable to lift the cord more than a few centimeters. I was able to identify the Lenny and then a Adonay was placed under the cord. The lipoma was dissected free and removed. And sent for pathology. The hernia sac was opened and identified and as much as possible resected. A pursestring suture was used of 0 silk to close the hernia sac. Next a piece of Bard keyhole mesh was sutured to the pubic tubercle using 2-0 PDS suture. It was then sutured to the shelving portion of the inguinal ligament with interrupted 2-0 PDS sutures. The mesh was then tacked to the conjoined tendon using interrupted 2-0 PDS sutures. The tails were brought around the cord and sutured to themselves using 2-0 PDS. There was enough room to allow for the tip of the pinky finger. The tails were tucked under the external aponeurosis. The ear was irrigated and suctioned dry and there was good hemostasis. The external aponeurosis was closed from the superior portion to the inferior portion using a running 3-0 Vicryl suture. Next the Paige's fascia was closed with interrupted 3-0 Vicryl sutures. The skin was closed with running 4-0 Monocryl and Dermabond was applied. The scrotum was checked at the end the case and contained both testicles. Patient was brought to PACU in stable condition. Surgical Findings: Very scarred in spermatic cord and hernia sac Complications Complications: No Admit VTE Documentation VTE Mechan Device Prophylaxis: SCD's
--- NOTE | 2025-07-04 15:20 | PCM.POST.ANE ---
Anesthesia: Postop Eval I Current Vital Signs Temperature: 97.6 F Pulse Rate: 75 Blood Pressure: 174/79 Respiratory Rate: 20 Pulse Ox: 99 Oxygen Delivery Method: Room Air Assessment Airway patent: Yes Spontaneous unlabored respirations: Yes Mental status: Awake and Calm nausea: No Vomiting: No Anesthesia Complication: No Fluid Hydration Crystalloid volume administer (ml): 1,000 Total IV fluid infused: 1,000 Progress Note Anesthesia document: Postop Eval 1 completed: Yes
--- NOTE | 2025-07-04 15:23 | EX.PCM.DISCH ---
Discharge Instructions Diet Discharge Diet: Light diet - advance as tolerated Activity Discharge Activity: May Not Drive (for 2-3 days or while taking narcotic pain meds.) and May Shower (with the bandage in place 1-2 days after surgery.) Lifting Restrictions: 20 pounds for 6 weeks Additional Activity Instructions:: Climbing stairs is fine, walking is encouraged. Sitting in bed may be uncomfortable. Sitting up using your lateral muscles (sitting up sideways) is usually more comfortable. Do not drive, work heavy equipment or sign legal documents for 24 hours. If your hernia repair was an inguinal repair, you may have scrotal swelling, an ice pack and/or athletic support can provide more comfort. Pain medications may cause nausea, you should typically eat light foods as you take your pain medications. Pain medications may also cause constipation. If you have difficulty with this, discuss with your doctor. Alternate ibuprofen and Tylenol for pain control, oxycodone for breakthrough pain. Resume aspirin in 2 days Dressing / Incision Call your doctor if your incision/area has: Continuous Slow Oozing, Sudden Increased Bleeding, Increased Pain/ Swelling, Increased Redness and Foul Smelling Discharge Call your doctor if you observe: Fever of 101 or Higher and - (Severe testicular pain) Suture Line Care: Avoid Pulling/Pushing and Avoid Pinching/Bending Remove Dressing in: 2 days (Remove clear bandages in 2 days, remove Steri-Strips in 7 to 10 days.) Cleanse incision/area with: Soap & Water Follow Up Care Please Follow Up With: Jacob Mcallister MD When: Please call to schedule 2 week follow up appointment. [phone] Test Results: Test results from this visit will be discussed in further detail at your follow-up appointment, if applicable. Discharge Plan Admission Attending Provider: Jacob Mcallister Primary Care Provider: Elena Flores Instructions Print Language: Serbian Discharge Orders/Prescriptions Prescriptions: New oxycodone 5 mg Tablet 5 - 10 mg PO Q4H PRN PRN (Reason: Pain Score 4-10) 5 Days Qty: 14 0RF No Action carvedilol 12.5 mg tablet 12.5 mg PO BID losartan 100 mg tablet 50 mg PO QDAY sertraline 25 mg tablet 25 mg PO QDAY Repatha SureClick 140 mg/mL pen injector 140 mg subcut Q2W Jardiance 10 mg tablet 25 mg PO QAM Patient Comments: STOPPING BEFORE SURGERY aspirin 81 mg tablet 162 mg PO DAILY Patient Comments: STOPPING BEFORE SURGERY multivitamin [Multiple Vitamins] 1 EACH tablet 1 ea PO DAILY atorvastatin 80 MG tablet 80 mg PO DAILY metformin 850 MG tablet 850 mg PO DAILY omeprazole 20 MG capsule 20 mg PO DAILY glipizide 5 MG tablet 5 mg PO DAILY melatonin 10 mg capsule 10 mg PO QHS docusate sodium 100 MG capsule 100 mg PO BID PRN (Reason: constipation) Referrals / Follow Up: Elena Flores DO [Primary Care Provider] - Disposition Disposition (needs filled in before D/C Order can be placed): Home, Self Care
--- NOTE | 2025-07-04 18:55 | POSTOPAN2_ITS ---
Anesthesia Postop Eval I Sum Postop Eval Completion status Anesthesia document: Postop Eval 1 completed: Yes Anesthesia Postop Eval I Summary Anesthesia Postop Eval I Summary: Anesthesia Postop Eval I: Assessment Summary Airway patent Yes 07/04/25 15:21 DE ICER [email or web address] Spontaneous unlabored Yes 07/04/25 15:21 DE ICER [email or web address] respirations Mental status Awake,Calm 07/04/25 15:21 DE ICER [email or web address] nausea No 07/04/25 15:21 DE ICER [email or web address] Vomiting No 07/04/25 15:21 DE ICER [email or web address] Anesthesia Postop Eval I: Fluid Summary Crystalloid volume administer 1,000 07/04/25 15:21 DE [email or web address] (ml) Colloids volume administered ( ml) Blood Product volume administered (ml) Total IV fluid infused 1,000 07/04/25 15:21 DE ICER [email or web address] Anesthesia Postop Eval I: Summary Notes Anesthesia Complication No 07/04/25 15:21 DE ICER [email or web address] Anesthesia Complication Comment: Post-operative progress note Anesthesia: Postop Eval II Evaluation Mental status: Awake and Calm Pain Level: 1 nausea: No Vomiting: No Complications Anesthesia Complication: No
--- NOTE | 2025-07-04 18:55 | PCM.POSTANE2 ---
Anesthesia Postop Eval I Sum Postop Eval Completion status Anesthesia document: Postop Eval 1 completed: Yes Anesthesia Postop Eval I Summary Anesthesia Postop Eval I Summary: Anesthesia Postop Eval I: Assessment Summary Airway patent Yes 07/04/25 15:21 [email or web address] Spontaneous unlabored Yes 07/04/25 15:21 SEPARATOR [email or web address] respirations Mental status Awake,Calm 07/04/25 15:21 SEPARATOR [email or web address] nausea No 07/04/25 15:21 SEPARATOR [email or web address] Vomiting No 07/04/25 15:21 SEPARATOR [email or web address] Anesthesia Postop Eval I: Fluid Summary Crystalloid volume administer 1,000 07/04/25 15:21 [email or web address] (ml) Colloids volume administered ( ml) Blood Product volume administered (ml) Total IV fluid infused 1,000 07/04/25 15:21 SEPARATOR [email or web address] Anesthesia Postop Eval I: Summary Notes Anesthesia Complication No 07/04/25 15:21 [email or web address] Anesthesia Complication Comment: Post-operative progress note Anesthesia: Postop Eval II Evaluation Mental status: Awake and Calm Pain Level: 1 nausea: No Vomiting: No Complications Anesthesia Complication: No
== END 2025-07-04 17:30 | disposition home or self-care (01) ==
LOC: SDC 12:34 → AC 12:36
PROVIDERS: Anesthesiology; Referring Provider Surgery; Visit Provider Surgery
PROC: (CPT 49505; principal; 2025-07-04 14:15)
DX: K40.90 Unilateral inguinal hernia, without obstruction or gangrene, not specified as recurrent (principal); I69.351 Hemiplegia and hemiparesis following cerebral infarction affecting right dominant side; E11.9 Type 2 diabetes mellitus without complications; Z87.891 Personal history of nicotine dependence; D17.6 Benign lipomatous neoplasm of spermatic cord; K21.9 Gastro-esophageal reflux disease without esophagitis; Z79.899 Other long term (current) drug therapy
CPT/HCPCS: 49505; 00830; 82962; 83036; 88304; C1781; J2405

== ENCOUNTER → 2025-09-29 | Outpatient (CLI) | payer MEDICARE, SELFPAY ==
[2025-09-29 10:53] LABS: PSA,Total- Diagnostic < 0.02 ng/mL (0.00-4.00)
== END | disposition home or self-care (01) ==
LOC: LAB 09:41
PROVIDERS: Referring Provider Nurse Practitioner; Visit Provider Nurse Practitioner
DX: C61 Malignant neoplasm of prostate (principal)
CPT/HCPCS: 36415; 84153